=== PATIENT | female | born 1950 | race Hispanic/Latino ===

== ENCOUNTER 2018-06-13 15:13 | Inpatient (IN) | payer OTHER ==
[~2018-06-13] VITALS: Ht 147.3 cm; Wt 55.8 kg
[~2018-06-13 15:13] MED LIST: ALLOPURINOL100 MG PO; AMBIEN CR12.5 MG PO; AMBIEN5 MG PO; AMLODIPINE BESY10 MG PO; CARDURA4 MG; CITALOPRAM HBR20 MG PO; DICYCLOMINE HCL10 MG PO; DICYCLOMINE HCL20 MG PO; DIOVAN80 MG PO; DOXAZOSIN MESYLA2 MG PO; GABAPENTIN300 MG PO; GUAIFENESI100 MG/5 M PO; HYDRALAZINE HCL25 MG PO; LANSOPRAZOLE15 MG PO; LEVEMIR100 UNIT/1 SC; LEVEMIR100 UNIT/1 SQ; LOSARTAN POTAS100 MG PO; LOSARTAN POTASS25 MG PO; METOPROLOL SUCC50 MG PO; NOVOLIN 70100 UNITS/ SQ; NOVOLIN R100 UNIT/1 SQ; PANTOPRAZOLE SO40 MG PO; POTASSIUM CITR10 MEQ PO; PRAVASTATIN SOD10 MG PO; PREDNISONE20 MG PO; PROVENTIL HFA6.7 GM INH; RANITIDINE HCL150 M1 PO; RANITIDINE HCL150 MG PO; REGLAN10 MG PO; SERTRALINE HCL50 MG PO; SODIUM BICARBO650 MG PO; SUCRALFATE1 GM PO; SUPRAX200 MG/5 M PO; SYMBICORT 160-4.5 INH; TOPROL XL100 MG PO; TRICOR145 MG PO; VITAMIN B-650 MG PO; VITAMIN D1000 UNI1 PO; ZOLPIDEM TARTRA10 MG PO
--- OUTSIDE RECORDS SUMMARY | 2018-06-13 15:20 | XMS REPORT | Summary of Care ---
Author Author [facility] [place] Organization [facility] [place] Address Unknown Phone Unavailable Encounter HQ [facility](FIN) [phone] Date(s): 08/24/15 - 08/24/15 [facility] [place] [address] [place] [phone] Discharge Disposition: Home Attending Physician: Thomas Perry MD Vital Signs No data available for this section Problem List No data available for this section Allergies, Adverse Reactions, Alerts No data available for this section Medications No data available for this section Results No data available for this section Immunizations No data available for this section Procedures No data available for this section Social History No data available for this section Assessment and Plan No data available for this section
--- OUTSIDE RECORDS SUMMARY | 2018-06-13 15:20 | XMS REPORT | Clinical Summary ---
Author Author [facility] Address Unknown Phone Unavailable Care Team Providers Care Cro Name Role Phone Cody Cheng PCP Jarrell Gaytan MD Unavailable Unavailable Arnulfo Pina MD 3 Allergies Not on File Medications End Date Status Medication Sig Dispensed Refills Start Date Active metoprolol (TOPROL-XL) Take 100 mg 0 100 MG 24 hr by mouth tabletIndications: ESRD daily. (end stage renal disease) ([facility]) Active pantoprazole (PROTONIX) Take 20 mg by 0 20 MG tabletIndications: mouth daily. ESRD (end stage renal disease) ([facility]) Active folic acid (FOLVITE) 1 MG Take 1 mg by 0 tabletIndications: ESRD mouth daily. (end stage renal disease) ([facility]) Active ondansetron (ZOFRAN) 8 MG Take by mouth 0 tabletIndications: ESRD every 8 (end stage renal disease) (eight) hours ([facility]) as needed for Nausea. Active sodium bicarbonate 650 MG Take 1 tablet 0 tabletIndications: ESRD by mouth 4 (end stage renal disease) (four) times ([facility]) daily. Active sertraline (ZOLOFT) 100 Take 100 mg 0 MG tabletIndications: by mouth ESRD (end stage renal daily. disease) ([facility]) Active ranitidine (ZANTAC) 150 Take 150 mg 0 MG capsuleIndications: by mouth 2 ESRD (end stage renal (two) times disease) ([facility]) daily. Active sevelamer (RENVELA) 800 Take 800 mg 0 mg tabletIndications: by mouth 3 ESRD (end stage renal (three) times disease) ([facility]) daily with meals. Active metoclopramide HCl Take 10 mg by 0 (REGLAN) 10 MG mouth 4 tabletIndications: ESRD (four) times (end stage renal disease) daily as ([facility]) needed for Nausea. Active amLODIPine (NORVASC) 10 Take 10 mg by 0 MG tabletIndications: mouth daily. ESRD (end stage renal disease) ([facility]) Active SUMAtriptan (IMITREX) 100 Take 100 mg 0 MG tabletIndications: by mouth once ESRD (end stage renal as needed for disease) ([facility]) Headaches. Active zolpidem (AMBIEN) 10 mg Take 10 mg by 0 tabletIndications: ESRD mouth every (end stage renal disease) night as ([facility]) needed for Insomnia. Active promethazine (PHENERGAN) Take 25 mg by 0 25 MG tabletIndications: mouth every 6 ESRD (end stage renal (six) hours disease) ([facility]) as needed for Nausea. Active insulin aspart (NOVOLOG) Inject 12 0 100 unit/mL Units InPnIndications: ESRD subcutaneousl (end stage renal disease) y 3 (three) ([facility]) times daily with meals. Active insulin detemir (LEVEMIR) Inject 30 0 100 unit/mL (3 mL) InPn Units injectionIndications: subcutaneousl ESRD (end stage renal y nightly. disease) ([facility]) Active vit B cmplex Take 1 tablet 0 1-DV-O-biot-Zn ox by mouth 1-60-300-12.5 daily. [id number]-[id number]-mg TabIndications: ESRD (end stage renal disease) ([facility]) Active cholecalciferol, vitamin Take 1,000 0 D3, 1,000 unit Units by capsuleIndications: ESRD mouth daily. (end stage renal disease) ([facility]) Active LORazepam (ATIVAN) 0.5 MG Take 0.5 mg 0 tabletIndications: ESRD by mouth (end stage renal disease) every 6 (six) ([facility]) hours as needed for Anxiety. Active Problems Not on file Social History Date Tobacco Use Types Packs/Day Years Used Never Assessed Sex Assigned at Date Recorded Not on file Industry Job Start Date Occupation Not on file Not on file Not on file Travel End Travel History Travel Start No recent travel history available. Last Filed Vital Signs Not on file Plan of Treatment Health Maintenance Due Date Last Done Comments INFLUENZA VACCINE 11/11/2017 Results Not on fileafter 06/12/2017 Insurance Payer Benefit Subscriber ID Type Phone Address Plan / Group [employer] [place] [place] Maps HMO ALL Contracted MEDICAID MEDICAID xxxxxxxxx Medicaid OF [place]
--- OUTSIDE RECORDS SUMMARY | 2018-06-13 15:20 | XMS REPORT | Summary of Care ---
Author Author [facility] Organization [facility] Address Unknown Phone Unavailable Encounter [facility](ZAHRAA) [id number] Date(s): 02/25/18 - 03/05/18 [facility] [id number] [place] [address]- Discharge Disposition: Assisted Facility Attending Physician: Joshua Healy MD Admitting Physician: Joshua Healy MD Vital Signs 1 2 3 Most recent to oldest [Reference Range]: 121.92 cm (02/25/18 9:24 PM) 157.48 cm (02/25/18 12:33 PM) Height 98.1 DegF (03/05/18 10:41 AM) 98.0 DegF (03/05/18 7:44 AM) 98.0 DegF (03/05/18 3:05 AM) Temperature Oral [96.4-99.1 DegF] 107/57 mmHg (03/05/18 10:41 AM) 129/82 mmHg (03/05/18 7:44 AM) 122/78 mmHg (03/05/18 3:05 AM) Blood Pressure [90-140/60-90 mmHg] 16 BRMIN (03/05/18 3:05 AM) 16 BRMIN (03/04/18 11:34 PM) 16 BRMIN (03/04/18 7:33 PM) Respiratory Rate [14-20 BRMIN] 95 bpm (03/05/18 10:41 AM) 102 bpm *HI* (03/05/18 7:44 AM) 97 bpm (03/05/18 3:05 AM) Peripheral Pulse Rate [60-100 bpm] 53.4 kg (02/25/18 9:24 PM) 62.727 kg (02/25/18 12:33 PM) Weight 35.92 m2 (02/25/18 9:24 PM) 25.29 m2 (02/25/18 12:33 PM) Body Mass Index Problem List No data available for this section Allergies, Adverse Reactions, Alerts Substance Reaction Severity Status ibuprofen Active Motrin Active Medications acetaminophen 650 mg, 2 tab, Route: PO, Drug form: TAB, Q6H, Dosing Weight 62.727, kg, PRN For Temp > 100.4 F, Start date: 02/25/18 18:09:00 ANESTHESIOLOGIST/PHYSICIAN, Duration: 30 day, Stop date: 03/27/18 18:08:00 ANESTHESIOLOGIST/PHYSICIAN Notes: Do not exceed 4 gm/day. (Same as: Tylenol) Start Date: 02/25/18 Stop Date: 03/05/18 Status: Discontinued atorvastatin 40 mg oral tablet 40 mg=1 tab, PO, Bedtime, # 90 tab, 1 Refill(s) Start Date: 02/26/18 Status: Ordered bisacodyl 10 mg, 1 supp, Route: MN, Drug form: SUPP, Daily, Dosing Weight 62.727, kg, PRN Constipation, Start date: 02/25/18 18:09:00 ANESTHESIOLOGIST/PHYSICIAN, Duration: 30 day, Stop date: 18:08:00 ANESTHESIOLOGIST/PHYSICIAN Notes: (Same As: Dulcolax, Bisco-Lax) Start Date: 02/25/18 Stop Date: 03/05/18 Status: Discontinued calcium gluconate + Sodium Chloride 0.9% IV 100 mL 2,000 mg, 20 mL, Route: IVPB, ONCE, Dosing Weight 53.4, kg, Start date: 02/27/18 10:59:00 ANESTHESIOLOGIST/PHYSICIAN, Stop date: 02/27/18 10:59:00 ANESTHESIOLOGIST/PHYSICIAN Notes: WASTE: F/P - Sink; E - Municipal Trash Bin Start Date: 02/27/18 Stop Date: 02/27/18 Status: Completed calcium gluconate + Sodium Chloride 0.9% IV 120 mL 3,000 mg, 30 mL, Route: IVPB, ONCE, Dosing Weight 62.727, kg, Start date: 18:58:00 ANESTHESIOLOGIST/PHYSICIAN, Stop date: 02/25/18 18:58:00 ANESTHESIOLOGIST/PHYSICIAN Notes: WASTE: F/P - Sink; E - Municipal Trash Bin Start Date: 02/25/18 Stop Date: 02/25/18 Status: Completed calcium gluconate + Sodium Chloride 0.9% IV 50 mL 1,000 mg, 10 mL, Route: IVPB, ONCE, Dosing Weight 53.4, kg, Start date: 02/28/18 13:54:00 ANESTHESIOLOGIST/PHYSICIAN, Stop date: 02/28/18 13:54:00 ANESTHESIOLOGIST/PHYSICIAN Notes: WASTE: F/P - Sink; E - Municipal Trash Bin Start Date: 02/28/18 Stop Date: 02/28/18 Status: Completed cefepime 1 gm, Route: IVPB, ONCE, Dosing Weight 62.727, kg, Priority: STAT, Start date: 0 02/25/18 15:20:00 ANESTHESIOLOGIST/PHYSICIAN, Stop date: 02/25/18 15:20:00 ANESTHESIOLOGIST/PHYSICIAN, ABX Indication: Urinary Tract Infection Start Date: 02/25/18 Stop Date: 02/25/18 Status: Completed cefepime + Sodium Chloride 0.9% IV 100 mL 1 gm, Route: IVPB, [id number], Dosing Weight 62.727, kg, (CrCl >/=50 ml/min), Start date: 02/26/18 16:00:00 ANESTHESIOLOGIST/PHYSICIAN, Duration: 7 day, Stop date: 03/04/18 16:00:00 ANESTHESIOLOGIST/PHYSICIAN, ABX Indication: Urinary Tract Infection Notes: (Same As: Maxipime) MEDICATION WASTE Product Size: 1000 mgProduc t Wasted: ___ mg Start Date: 02/26/18 Stop Date: 03/04/18 Status: Completed Dextrose 50% Syringe 25 gm, 50 mL, Route: IVP, Drug Form: INJ, Dosing Weight 53.4, kg, PRN, PRN Blood Glucose Results, Start date: 02/27/18 22:09:00 ANESTHESIOLOGIST/PHYSICIAN, Duration: 30 day, Stop date: 03/29/18 22:08:00 ANESTHESIOLOGIST/PHYSICIAN Start Date: 02/27/18 Stop Date: 03/05/18 Status: Discontinued Dextrose 50% Syringe 12.5 gm, 25 mL, Route: IVP, Drug Form: INJ, Dosing Weight 53.4, kg, PRN, PRN Blo od Glucose Results, Start date: 02/27/18 22:09:00 ANESTHESIOLOGIST/PHYSICIAN, Duration: 30 day, Stop da te: 03/29/18 22:08:00 ANESTHESIOLOGIST/PHYSICIAN Start Date: 02/27/18 Stop Date: 03/05/18 Status: Discontinued Dextrose 50% Syringe 12.5 gm, 25 mL, Route: IVP, Drug Form: INJ, Dosing Weight 62.727, kg, PRN, PRN B lood Glucose Results, Start date: 02/25/18 18:09:00 ANESTHESIOLOGIST/PHYSICIAN, Duration: 30 day, Stop date: 03/27/18 18:08:00 ANESTHESIOLOGIST/PHYSICIAN Start Date: 02/25/18 Stop Date: 02/27/18 Status: Deleted Dextrose 50% Syringe 25 gm, 50 mL, Route: IVP, Drug Form: INJ, Dosing Weight 62.727, kg, PRN, PRN Blo od Glucose Results, Start date: 02/25/18 18:09:00 ANESTHESIOLOGIST/PHYSICIAN, Duration: 30 day, Stop da te: 03/27/18 18:08:00 ANESTHESIOLOGIST/PHYSICIAN Start Date: 02/25/18 Stop Date: 02/27/18 Status: Deleted Dilaudid 1 mg, 1 mL, Route: IVP, Drug form: SOLN, ONCE, Dosing Weight 53.4, kg, Priority: STAT, Start date: 02/28/18 10:37:00 ANESTHESIOLOGIST/PHYSICIAN, Stop date: 02/28/18 10:37:00 ANESTHESIOLOGIST/PHYSICIAN Notes: (Same as: Dilaudid) Start Date: 02/28/18 Stop Date: 02/28/18 Status: Completed diphenhydrAMINE 25 mg, 1 tab, Route: PO, Drug form: TAB, Q6H, Dosing Weight 62.727, kg, PRN as n eeded for allergy symptoms, Start date: 02/25/18 18:09:00 ANESTHESIOLOGIST/PHYSICIAN, Duration: 30 day, Stop date: 03/27/18 18:08:00 ANESTHESIOLOGIST/PHYSICIAN Start Date: 02/25/18 Stop Date: 03/05/18 Status: Discontinued enoxaparin 30 mg/0.3 mL subcutaneous solution 30 mg=0.3 mL, SUB-Q, [id number], 0 Refill(s) Start Date: 03/05/18 Status: Ordered famotidine 40 mg, PO, Bedtime, # 60 tab, 0 Refill(s) Start Date: 02/26/18 Stop Date: 03/28/18 Status: Ordered glucagon 1 mg, Route: IM, Drug form: PDR/INJ, PRN, Dosing Weight 53.4, kg, PRN Blood Gluc ose Results, Start date: 02/27/18 22:09:00 ANESTHESIOLOGIST/PHYSICIAN, Duration: 30 day, Stop date: 22:08:00 ANESTHESIOLOGIST/PHYSICIAN Start Date: 02/27/18 Stop Date: 03/05/18 Status: Discontinued glucagon 1 mg, Route: IM, Drug form: PDR/INJ, PRN, Dosing Weight 62.727, kg, PRN Blood Gl ucose Results, Start date: 02/25/18 18:09:00 ANESTHESIOLOGIST/PHYSICIAN, Duration: 30 day, Stop date: 0 03/27/18 18:08:00 ANESTHESIOLOGIST/PHYSICIAN Start Date: 02/25/18 Stop Date: 02/27/18 Status: Deleted hydrALAZINE 10 mg, 0.5 mL, Route: IVP, Drug form: INJ, Q4H, Dosing Weight 62.727, kg, PRN Hy pertension, Priority: Routine, Start date: 02/25/18 18:09:00 ANESTHESIOLOGIST/PHYSICIAN, Duration: 30 d ay, Stop date: 03/27/18 18:08:00 ANESTHESIOLOGIST/PHYSICIAN Notes: (Same as: Apresoline)Push over 5 minutes Start Date: 02/25/18 Stop Date: 03/05/18 Status: Discontinued hydromorphone 0.5 mg, Route: IVP, ONCE, Dosing Weight 62.727, kg, Priority: STAT, Start date: 02/25/18 18:45:00 ANESTHESIOLOGIST/PHYSICIAN, Stop date: 02/25/18 18:45:00 ANESTHESIOLOGIST/PHYSICIAN Start Date: 02/25/18 Stop Date: 02/25/18 Status: Completed insulin lispro 2 unit, 0.02 mL, Route: SUB-Q, Drug form: SOLN, Bedtime, Dosing Weight 53.4, kg, PRN Blood Glucose Results, Start date: 02/27/18 22:09:00 ANESTHESIOLOGIST/PHYSICIAN, Duration: 30 day, Stop date: 03/29/18 22:08:00 ANESTHESIOLOGIST/PHYSICIAN Notes: (Same as: Humalog ) Roll in palms of hands gently; Do not shake `vigorou sly. "Single Patient Use Only " WASTE: F/P - Black; E - Municipal Trash Bin St able for 28 days at room temperature.Expires in days from Da te Start Date: 02/27/18 Stop Date: 03/05/18 Status: Discontinued insulin lispro 3 unit, 0.03 mL, Route: SUB-Q, Drug form: SOLN, Bedtime, Dosing Weight 53.4, kg, PRN Blood Glucose Results, Start date: 02/27/18 22:09:00 ANESTHESIOLOGIST/PHYSICIAN, Duration: 30 day, Stop date: 03/29/18 22:08:00 ANESTHESIOLOGIST/PHYSICIAN Notes: (Same as: Humalog ) Roll in palms of hands gently; Do not shake `vigorou sly. "Single Patient Use Only " WASTE: F/P - Black; E - Municipal Trash Bin St able for 28 days at room temperature.Expires in days from Da te Start Date: 02/27/18 Stop Date: 03/05/18 Status: Discontinued insulin lispro 1 unit, 0.01 mL, Route: SUB-Q, Drug form: SOLN, Bedtime, Dosing Weight 53.4, kg, PRN Blood Glucose Results, Start date: 02/27/18 22:09:00 ANESTHESIOLOGIST/PHYSICIAN, Duration: 30 day, Stop date: 03/29/18 22:08:00 ANESTHESIOLOGIST/PHYSICIAN Notes: (Same as: Humalog ) Roll in palms of hands gently; Do not shake `vigorou sly. "Single Patient Use Only " WASTE: F/P - Black; E - Municipal Trash Bin St able for 28 days at room temperature.Expires in days from Da te Start Date: 02/27/18 Stop Date: 03/05/18 Status: Discontinued insulin lispro 4 unit, 0.04 mL, Route: SUB-Q, Drug form: SOLN, Bedtime, Dosing Weight 53.4, kg, PRN Blood Glucose Results, Start date: 02/27/18 22:09:00 ANESTHESIOLOGIST/PHYSICIAN, Duration: 30 day, Stop date: 03/29/18 22:08:00 ANESTHESIOLOGIST/PHYSICIAN Notes: (Same as: Humalog ) Roll in palms of hands gently; Do not shake `vigorou sly. "Single Patient Use Only " WASTE: F/P - Black; E - Municipal Trash [facility] St able for 28 days at room temperature.Expires in days from Da te Start Date: 02/27/18 Stop Date: 03/05/18 Status: Discontinued insulin lispro 10 unit, 0.1 mL, Route: SUB-Q, Drug form: SOLN, TID-Before Meals, Dosing Weight 53.4, kg, PRN Blood Glucose Results, Start date: 02/27/18 22:09:00 ANESTHESIOLOGIST/PHYSICIAN, Duration : 30 day, Stop date: 03/29/18 22:08:00 ANESTHESIOLOGIST/PHYSICIAN Notes: (Same as: Humalog ) Roll in palms of hands gently; Do not shake `vigorou sly. "Single Patient Use Only " WASTE: F/P - Black; E - FRESS[facility] Bin St able for 28 days at room temperature.Expires in days from Da te Start Date: 02/27/18 Stop Date: 03/05/18 Status: Discontinued insulin lispro 8 unit, 0.08 mL, Route: SUB-Q, Drug form: SOLN, TID-Before Meals, Dosing Weight 53.4, kg, PRN Blood Glucose Results, Start date: 02/27/18 22:09:00 ANESTHESIOLOGIST/PHYSICIAN, Duration : 30 day, Stop date: 03/29/18 22:08:00 ANESTHESIOLOGIST/PHYSICIAN Notes: (Same as: Humalog ) Roll in palms of hands gently; Do not shake `vigorou sly. "Single Patient Use Only " WASTE: F/P - Black; E - FRESSsh Bin St able for 28 days at room temperature.Expires in days from Da te Start Date: 02/27/18 Stop Date: 03/05/18 Status: Discontinued insulin lispro 6 unit, 0.06 mL, Route: SUB-Q, Drug form: SOLN, TID-Before Meals, Dosing Weight 53.4, kg, PRN Blood Glucose Results, Start date: 02/27/18 22:09:00 ANESTHESIOLOGIST/PHYSICIAN, Duration : 30 day, Stop date: 03/29/18 22:08:00 ANESTHESIOLOGIST/PHYSICIAN Notes: (Same as: Humalog ) Roll in palms of hands gently; Do not shake `vigorou sly. "Single Patient Use Only " WASTE: F/P - Black; E - Municipal Trash [facility] St able for 28 days at room temperature.Expires in days from Da te Start Date: 02/27/18 Stop Date: 03/05/18 Status: Discontinued insulin lispro 2 unit, 0.02 mL, Route: SUB-Q, Drug form: SOLN, TID-Before Meals, Dosing Weight 53.4, kg, PRN Blood Glucose Results, Start date: 02/27/18 22:09:00 ANESTHESIOLOGIST/PHYSICIAN, Duration : 30 day, Stop date: 03/29/18 22:08:00 ANESTHESIOLOGIST/PHYSICIAN Notes: (Same as: Humalog ) Roll in palms of hands gently; Do not shake `vigorou sly. "Single Patient Use Only " WASTE: F/P - Black; E - Municipal Trash [facility] St able for 28 days at room temperature.Expires in days from Da te Start Date: 02/27/18 Stop Date: 03/05/18 Status: Discontinued insulin lispro 4 unit, 0.04 mL, Route: SUB-Q, Drug form: SOLN, TID-Before Meals, Dosing Weight 53.4, kg, PRN Blood Glucose Results, Start date: 02/27/18 22:09:00 ANESTHESIOLOGIST/PHYSICIAN, Duration : 30 day, Stop date: 03/29/18 22:08:00 ANESTHESIOLOGIST/PHYSICIAN Notes: (Same as: Humalog ) Roll in palms of hands gently; Do not shake `vigorou sly. "Single Patient Use Only " WASTE: F/P - Black; E - Municipal Trash Bin St able for 28 days at room temperature.Expires in days from Da te Start Date: 02/27/18 Stop Date: 03/05/18 Status: Discontinued Timothy packet 1 pkt, Route: PO, Drug Form: PWDR, Dosing Weight 53.4, kg, BID-Before Meals, Sta rt date: 02/27/18 7:30:00 ANESTHESIOLOGIST/PHYSICIAN, Duration: 28 day, Stop date: 03/26/18 16:30:00 CS T Notes: (Same as: Timothy [place]) Start Date: 02/27/18 Stop Date: 03/05/18 Status: Discontinued loperamide 2 mg oral capsule 2 mg=1 cap, PO, Q4H, PRN loose stools, # 30 cap, 0 Refill(s), other Start Date: 03/05/18 Status: Ordered Lovenox 30 mg, 0.3 mL, Route: SUB-Q, Drug form: INJ, [id number], Dosing Weight 62.727, kg, Start date: 02/25/18 20:00:00 ANESTHESIOLOGIST/PHYSICIAN, Duration: 30 day, Stop date: 03/26/18 20:00: 00 ANESTHESIOLOGIST/PHYSICIAN Notes: (Same as: Lovenox) Start Date: 02/25/18 Stop Date: 03/05/18 Status: Discontinued magnesium citrate 1.745 g/30 mL oral liquid 300 ml, Route: PO, Drug Form: LIQ, Dosing Weight 62.727, kg, ONCE, PRN Constipat ion, Start date: 02/25/18 18:09:00 ANESTHESIOLOGIST/PHYSICIAN Notes: (Same as: Citrate of Magnesia)Concentration: 1.745 gm / 30 mL Start Date: 02/25/18 Stop Date: 03/05/18 Status: Discontinued magnesium sulfate 2 gm, 50 mL, Route: IV, Drug form: INJ, ONCE, Dosing Weight 53.4, kg, Start date : 02/28/18 10:56:00 ANESTHESIOLOGIST/PHYSICIAN, Stop date: 02/28/18 10:56:00 ANESTHESIOLOGIST/PHYSICIAN Notes: WASTE: F/P - Sink; E - Municipal Trash Bin Start Date: 02/28/18 Stop Date: 02/28/18 Status: Completed magnesium sulfate 2 gm in Water 50 ml 2 gm, 50 mL, Route: IVPB, Drug form: INJ, ONCE, Dosing Weight 53.4, kg, Start da te: 02/28/18 13:54:00 ANESTHESIOLOGIST/PHYSICIAN, Stop date: 02/28/18 13:54:00 ANESTHESIOLOGIST/PHYSICIAN Notes: WASTE: F/P - Sink; E - Municipal Trash Bin Start Date: 02/28/18 Stop Date: 02/28/18 Status: Completed magnesium sulfate 2gm / NS 50ml (premixed) 2 gm, 50 mL, Route: IVPB, Drug form: INJ, ONCE, Dosing Weight 53.4, kg, Start da te: 02/28/18 17:34:00 ANESTHESIOLOGIST/PHYSICIAN, Stop date: 02/28/18 17:34:00 ANESTHESIOLOGIST/PHYSICIAN Notes: WASTE: F/P - Sink; E - Municipal Trash Bin Start Date: 02/28/18 Stop Date: 02/28/18 Status: Completed melatonin 3 mg, 1 tab, Route: PO, Drug form: TAB, Bedtime, Dosing Weight 62.727, kg, PRN I nsomnia, Start date: 02/25/18 18:09:00 ANESTHESIOLOGIST/PHYSICIAN, Duration: 30 day, Stop date: 9 18:08:00 ANESTHESIOLOGIST/PHYSICIAN Notes: (Same as: Melatonin) Start Date: 02/25/18 Stop Date: 03/05/18 Status: Discontinued metoprolol extended release 25 mg, 1 tab, Route: PO, Drug form: ERTAB, Daily, Priority: NOW, Start date: 23:10:00 ANESTHESIOLOGIST/PHYSICIAN, Duration: 30 day, Stop date: 04/01/18 9:00:00 ANESTHESIOLOGIST/PHYSICIAN Notes: (Same as: Toprol XL) Do Not Crush Start Date: 03/02/18 Stop Date: 03/05/18 Status: Discontinued morphine Sulfate 2 mg, 0.5 mL, Route: IVP, Drug form: SOLN, Q4H, Dosing Weight 62.727, kg, PRN Pa in Score 7-10, Start date: 02/25/18 18:09:00 ANESTHESIOLOGIST/PHYSICIAN, Duration: 30 day, Stop date: 0 03/27/18 18:08:00 ANESTHESIOLOGIST/PHYSICIAN Notes: (Same as:MORPhine Sulfate) Start Date: 02/25/18 Stop Date: 03/05/18 Status: Discontinued morphine Sulfate 2 mg, 1 mL, Route: IVP, Drug form: SOLN, ONCE, Dosing Weight 62.727, kg, Priorit y: STAT, Start date: 02/25/18 13:24:00 ANESTHESIOLOGIST/PHYSICIAN, Stop date: 02/25/18 13:24:00 ANESTHESIOLOGIST/PHYSICIAN Start Date: 02/25/18 Stop Date: 02/25/18 Status: Completed nicotine 21 mg, 1 patch, Route: TOP, Drug form: ERFILM, Daily, Dosing Weight 62.727, kg, PRN as needed for smoking cessation, Start date: 02/25/18 18:09:00 ANESTHESIOLOGIST/PHYSICIAN, Duration : 30 day, Stop date: 03/27/18 18:08:00 ANESTHESIOLOGIST/PHYSICIAN Notes: (Same as: Habitrol)"Remove old patch before application of new patch"WAST E: F/P - P Waste Black; E - P Waste Black Start Date: 02/25/18 Stop Date: 03/05/18 Status: Discontinued Acton 5/325 oral tablet 1 tab, Route: PO, Drug Form: TAB, Dosing Weight 62.727, kg, Q6H, PRN Pain Score 1-3, Start date: 02/25/18 18:09:00 ANESTHESIOLOGIST/PHYSICIAN, Duration: 30 day, Stop date: 03/27/18 18 :08:00 ANESTHESIOLOGIST/PHYSICIAN Notes: (Same as: Acton 325/5) Do not exceed 4gm/day of acetaminophen. Start Date: 02/25/18 Stop Date: 03/05/18 Status: Discontinued NS 1,000 mL 1,000 mL, Rate: 125 ml/hr, Infuse over: 8 hr, Route: IV, Dosing Weight 53.4 kg, Total Volume: 1,000, Start date: 02/25/18 16:38:00 ANESTHESIOLOGIST/PHYSICIAN, Duration: 30 day, Stop d ate: 03/27/18 16:37:00 ANESTHESIOLOGIST/PHYSICIAN, 1.38, m2 Start Date: 02/25/18 Stop Date: 03/05/18 Status: Discontinued ondansetron 4 mg, 2 mL, Route: IVP, Drug form: INJ, Q6H, Dosing Weight 62.727, kg, PRN Nause a & Vomiting, Start date: 02/25/18 18:09:00 ANESTHESIOLOGIST/PHYSICIAN, Duration: 30 day, Stop date: 03/27/18 18:08:00 ANESTHESIOLOGIST/PHYSICIAN Notes: (Same as: Tomas) MEDICATION WASTE Product Size: 4 mgProduct Was paul: ___ mg Start Date: 02/25/18 Stop Date: 03/05/18 Status: Discontinued ondansetron 4 mg, 2 mL, Route: IVP, Drug form: INJ, ONCE, Dosing Weight 62.727, kg, Priority : STAT, Start date: 02/25/18 13:24:00 ANESTHESIOLOGIST/PHYSICIAN, Stop date: 02/25/18 13:24:00 ANESTHESIOLOGIST/PHYSICIAN Notes: (Same as: Zofran) MEDICATION WASTE Product Size: 4 mgProduct Was paul: ___ mg Start Date: 02/25/18 Stop Date: 02/25/18 Status: Completed Phenergan 25 mg oral tablet 25 mg=1 tab, PO, Q6H, PRN Nausea, # 30 tab, 0 Refill(s), other Start Date: 03/05/18 Status: Ordered polyethylene glycol 3350 17 gm, 1 pkt, Route: PO, Drug form: PWDR, Daily, Dosing Weight 62.727, kg, PRN C onstipation, Start date: 02/25/18 18:09:00 ANESTHESIOLOGIST/PHYSICIAN, Duration: 30 day, Stop date: 18:08:00 ANESTHESIOLOGIST/PHYSICIAN Notes: Dissolve in 8 oz of water or juice.(Same as: Miralax) Start Date: 02/25/18 Stop Date: 03/05/18 Status: Discontinued potassium chloride 20 mEq, 1 tab, Route: PO, Drug form: ERTAB, ONCE, Dosing Weight 53.4, kg, Start date: 02/27/18 10:59:00 ANESTHESIOLOGIST/PHYSICIAN, Stop date: 02/27/18 10:59:00 ANESTHESIOLOGIST/PHYSICIAN Start Date: 02/27/18 Stop Date: 02/27/18 Status: Completed potassium chloride 20 mEq oral tablet, extended release 40 mEq, 2 tab, Route: PO, Drug form: ERTAB, ONCE, Dosing Weight 53.4, kg, Start date: 03/05/18 17:41:00 ANESTHESIOLOGIST/PHYSICIAN, Stop date: 03/05/18 17:41:00 ANESTHESIOLOGIST/PHYSICIAN Notes: (Same as: K-Dur 20)"Do Not Crush" Give with food and full glass of water For patients unable to swallow tablet, dissolve in one half glass of water. Allo w about 2 minutes for the tablets to disintegrate. Stir before giving to prepare slurry and administer.Please exclude Patients with feeding tube less than 14 [place] (Dobhoff, J-tube etc) and pediatric and patients. Start Date: 03/05/18 Stop Date: 03/05/18 Status: Completed pramipexole 0.125 mg oral tablet 0.125 mg=1 tab, PO, Daily, 0 Refill(s) Start Date: 02/26/18 Status: Ordered promethazine 25 mg, PO, Q6H, 0 Refill(s) Start Date: 02/26/18 Stop Date: 03/05/18 Status: Discontinued promethazine + Sodium Chloride 0.9% IV 50 mL 25 mg, 1 mL, Route: IVPB, Q6H, Dosing Weight 53.4, kg, PRN Nausea & Vomiting, Start date: 03/02/18 7:41:00 ANESTHESIOLOGIST/PHYSICIAN, Duration: 30 day, Stop date: 04/01/18 7:40:00 ANESTHESIOLOGIST/PHYSICIAN Notes: Do not give IV push. (Same as: Phenergan) Start Date: 03/02/18 Stop Date: 03/05/18 Status: Discontinued Saline Flush 0.9% 10 mL, Route: IVP, Drug Form: INJ, Dosing Weight 62.727, kg, PRN, PRN Line Flush , Start date: 02/25/18 13:24:00 ANESTHESIOLOGIST/PHYSICIAN, Duration: 30 day, Stop date: 03/27/18 13:23 :00 ANESTHESIOLOGIST/PHYSICIAN Notes: Same as: BD Posiflush Sterile Start Date: 02/25/18 Stop Date: 03/03/18 Status: Discontinued SandoSTATIN 100 mcg/mL injectable solution 100 microgram, SUB-Q, BID, X 30 day, # 60 vial, 0 Refill(s), other Start Date: 03/05/18 Stop Date: 04/04/18 Status: Ordered SEROquel 25 mg, 1 tab, Route: PO, Drug form: TAB, BID, Dosing Weight 62.727, kg, PRN Agit ation, Start date: 02/25/18 18:09:00 ANESTHESIOLOGIST/PHYSICIAN, Duration: 30 day, Stop date: 03/27/18 18:08:00 ANESTHESIOLOGIST/PHYSICIAN Notes: (Same as: SEROquel) Start Date: 02/25/18 Stop Date: 03/05/18 Status: Discontinued sodium bicarbonate 10 grain, PO, BID, 0 Refill(s) Start Date: 02/26/18 Status: Ordered Sodium Chloride 0.9% (Bolus) IV 1,000 mL, 1000 ml/hr, Infuse Over: 1 hr, Route: IV, 1,000, Drug form: INJ, ONCE, Priority: STAT, Dosing Weight 62.727 kg, Start date: 02/25/18 15:24:00 ANESTHESIOLOGIST/PHYSICIAN, Stop date: 02/25/18 15:24:00 ANESTHESIOLOGIST/PHYSICIAN Start Date: 02/25/18 Stop Date: 02/25/18 Status: Completed Sodium Chloride 0.9% (Bolus) IV 1,000 mL, 1000 ml/hr, Infuse Over: 1 hr, Route: IV, 1,000, Drug form: INJ, ONCE, Priority: STAT, Dosing Weight 62.727 kg, Start date: 02/25/18 13:24:00 ANESTHESIOLOGIST/PHYSICIAN, Stop date: 02/25/18 13:24:00 ANESTHESIOLOGIST/PHYSICIAN Start Date: 02/25/18 Stop Date: 02/25/18 Status: Completed sucralfate 1 g oral tablet 1 gm=1 tab, PO, QID-Before Meals, 0 Refill(s) Start Date: 02/26/18 Status: Ordered trazodone 50 mg, 1 tab, Route: PO, Drug form: TAB, Bedtime, Dosing Weight 62.727, kg, PRN Insomnia, Start date: 02/25/18 18:09:00 ANESTHESIOLOGIST/PHYSICIAN, Duration: 30 day, Stop date: 18:08:00 ANESTHESIOLOGIST/PHYSICIAN Notes: (Same As: Brian) Start Date: 02/25/18 Stop Date: 03/05/18 Status: Discontinued Tums 1,000 mg, 2 tab, Route: CHEW, Drug form: CHEWTAB, TID-Meals, Dosing Weight 53.4, kg, Start date: 02/27/18 17:00:00 ANESTHESIOLOGIST/PHYSICIAN, Duration: 30 day, Stop date: 03/29/18 12 :00:00 ANESTHESIOLOGIST/PHYSICIAN Notes: (Same As: Tums)Calcium Carbonate 500 qu=210 mg elemental calcium Dose=_ mg calcium carbonate ( mg elemental calcium) Start Date: 02/27/18 Stop Date: 02/28/18 Status: Discontinued Tums 1,000 mg, 2 tab, Route: CHEW, Drug form: CHEWTAB, TID-Before Meals, Dosing Weigh t 53.4, kg, Start date: 02/28/18 16:30:00 ANESTHESIOLOGIST/PHYSICIAN, Duration: 30 day, Stop date: 03/14 08/29 11:30:00 ANESTHESIOLOGIST/PHYSICIAN Notes: (Same As: Tums)Calcium Carbonate 500 qb=594 mg elemental calcium Dose=_ mg calcium carbonate ( mg elemental calcium) Start Date: 02/28/18 Stop Date: 03/05/18 Status: Discontinued Tylenol with Codeine #3 oral tablet 1 tab, PO, Q6H, PRN Pain, # 25 tab, 0 Refill(s) Start Date: 03/05/18 Status: Ordered zinc oxide topical 20% ointment Route: TOP, BID, Drug form: OINT, Start date: 02/27/18 9:00:00 ANESTHESIOLOGIST/PHYSICIAN, Duration: 30 day, Stop date: 03/28/18 17:00:00 ANESTHESIOLOGIST/PHYSICIAN Notes: Same as: Desitin Start Date: 02/27/18 Stop Date: 03/05/18 Status: Discontinued Zofran ODT 4 mg oral tablet, disintegrating 4 mg=1 tab, PO, TID, Dissolve tab under tongue, # 20 tab, 0 Refill(s) Start Date: 03/05/18 Status: Ordered Results ELECTROLYTES 1 2 3 Most recent to oldest [Reference Range]: 134 mEq/L *LOW* (03/05/18 9:18 AM) 135 mEq/L (03/04/18 5:01 AM) 134 mEq/L *LOW* (03/03/18 2:30 PM) Sodium Lvl [135-145 mEq/L] 3.2 mEq/L *LOW* (03/05/18 9:18 AM) 3.7 mEq/L (03/04/18 5:01 AM) 3.5 mEq/L (03/03/18 2:30 PM) Potassium Lvl [3.5-5.1 mEq/L] 93 mEq/L *LOW* (03/05/18 9:18 AM) 93 mEq/L *LOW* (03/04/18 5:01 AM) 88 mEq/L *LOW* (03/03/18 2:30 PM) Chloride Lvl [95-109 mEq/L] 33 mEq/L *HI* (03/05/18 9:18 AM) 30 mEq/L (03/04/18 5:01 AM) 31 mEq/L (03/03/18 2:30 PM) CO2 [24-32 mEq/L] 11.2 mEq/L (03/05/18 9:18 AM) 15.7 mEq/L (03/04/18 5:01 AM) 18.5 mEq/L (03/03/18 2:30 PM) AGAP [10.0-20.0 mEq/L] CHEM PANEL 1 2 3 Most recent to oldest [Reference Range]: 2.18 mg/dL *HI* (03/05/18 9:18 AM) 2.41 mg/dL *HI* (03/04/18 5:01 AM) 3.34 mg/dL *HI* (03/03/18 2:30 PM) Creatinine Lvl [0.50-1.40 mg/dL] 23 mL/min/1.73m2 1 *NA* (03/05/18 9:18 AM) 20 mL/min/1.73m2 2 *NA* (03/04/18 5:01 AM) 14 mL/min/1.73m2 3 *NA* (03/03/18 2:30 PM) eGFR 41 mg/dL *HI* (03/05/18 9:18 AM) 50 mg/dL *HI* (03/04/18 5:01 AM) 49 mg/dL *HI* (03/03/18 2:30 PM) BUN [7-22 mg/dL] 20 (02/25/18 5:46 PM) 17 (02/25/18 1:44 PM) B/C Ratio [6-25] 117 mg/dL *HI* (03/05/18 9:18 AM) 150 mg/dL *HI* (03/04/18 5:01 AM) 211 mg/dL *HI* (03/03/18 2:30 PM) Glucose Lvl [70-99 mg/dL] 6.6 g/dL (02/25/18 5:46 PM) 8.4 g/dL (02/25/18 1:44 PM) Total Protein [6.4-8.4 g/dL] 2.1 g/dL *LOW* (02/25/18 5:46 PM) 2.8 g/dL *LOW* (02/25/18 1:44 PM) Albumin Lvl [3.5-5.0 g/dL] 4.5 g/dL *HI* (02/25/18 5:46 PM) 5.6 g/dL *HI* (02/25/18 1:44 PM) Globulin [2.7-4.2 g/dL] 0.5 *LOW* (02/25/18 5:46 PM) 0.5 *LOW* (02/25/18 1:44 PM) A/G Ratio [0.7-1.6] 7.8 mg/dL *LOW* (03/05/18 9:18 AM) 7.5 mg/dL *LOW* (03/04/18 5:01 AM) 8.3 mg/dL *LOW* (03/03/18 2:30 PM) Calcium Lvl [8.5-10.5 mg/dL] 3.5 mg/dL (03/01/18 6:18 AM) 4.2 mg/dL (02/28/18 6:00 AM) 2.1 mg/dL *LOW* (02/28/18 4:00 AM) Phosphorus [2.5-4.5 mg/dL] 2.8 mg/dL *HI* (03/01/18 6:18 AM) 0.5 mg/dL 4 *CRIT* (02/28/18 6:00 AM) <0.3 mg/dL 5 *CRIT* (02/28/18 4:00 AM) Magnesium Lvl [1.8-2.4 mg/dL] 11 unit/L (02/25/18 5:46 PM) 13 unit/L (02/25/18 1:44 PM) ALT [0-65 unit/L] 22 unit/L (02/25/18 5:46 PM) 21 unit/L (02/25/18 1:44 PM) AST [0-37 unit/L] 70 unit/L (02/25/18 5:46 PM) 87 unit/L (02/25/18 1:44 PM) Alk Phos [39-136 unit/L] 0.3 mg/dL (02/25/18 5:46 PM) 0.4 mg/dL (02/25/18 1:44 PM) Bili Total [0.2-1.3 mg/dL] 24 unit/L *LOW* (02/25/18 2:15 PM) Amylase Lvl [25-115 unit/L] 78 unit/L (02/25/18 2:15 PM) Lipase Lvl [73-393 unit/L] 1.1 mMol/L (02/25/18 5:46 PM) Lactic Acid Lvl [0.5-2.2 mMol/L] 0.30 ng/mL *HI* (02/25/18 5:46 PM) Procalcitonin Lvl [0.00-0.10 ng/mL] 24.8 ng/mL *LOW* (02/27/18 1:31 PM) Vitamin D, 25-OH, Total [30.0-100.0 ng/mL] 1Result Comment: The eGFR is calculated using the CKD-EPI formula. In most young, healthy individuals the eGFR will be >90 mL/min/1.73m2. The eGFR declines with age. An eGFR of 60-89 may be normal in some populations, particularly the elderly, for whom the CKD-EPI formula has not been extensively validated. Use of the eGFR is not recommended in the following populations: Individuals with unstable creatinine concentrations, including patients and those with serious co-morbid conditions. Patients with extremes in muscle mass or diet. The data above are obtained from the National Kidney Disease Education Program ( NKDEP) which additionally recommends that when the eGFR is used in patients with extremes of body mass index for purposes of drug dosing, the eGFR should be mul tiplied by the estimated BMI. 2Result Comment: The eGFR is calculated using the CKD-EPI formula. In most young, healthy individuals the eGFR will be >90 mL/min/1.73m2. The eGFR declines with age. An eGFR of 60-89 may be normal in some populations, particularly the elderly, for whom the CKD-EPI formula has not been extensively validated. Use of the eGFR is not recommended in the following populations: Individuals with unstable creatinine concentrations, including patients and those with serious co-morbid conditions. Patients with extremes in muscle mass or diet. The data above are obtained from the National Kidney Disease Education Program ( NKDEP) which additionally recommends that when the eGFR is used in patients with extremes of body mass index for purposes of drug dosing, the eGFR should be mul tiplied by the estimated BMI. 3Result Comment: The eGFR is calculated using the CKD-EPI formula. In most young, healthy individuals the eGFR will be >90 mL/min/1.73m2. The eGFR declines with age. An eGFR of 60-89 may be normal in some populations, particularly the elderly, for whom the CKD-EPI formula has not been extensively validated. Use of the eGFR is not recommended in the following populations: Individuals with unstable creatinine concentrations, including patients and those with serious co-morbid conditions. Patients with extremes in muscle mass or diet. The data above are obtained from the National Kidney Disease Education Program ( NKDEP) which additionally recommends that when the eGFR is used in patients with extremes of body mass index for purposes of drug dosing, the eGFR should be mul tiplied by the estimated BMI. 4Result Comment: Critical Result(s) called to Pushpa Hester at 02/28/2018 10:16 by DMF. Read back OK. 5Result Comment: Critical Result(s) called to RN. Milly Thao at 02/28/2018 05:40 by kris. Read back OK. LIPIDS 1 2 3 Most recent to oldest [Reference Range]: 3.12 *LOW* (02/26/18 5:54 AM) CHD Risk [3.90-5.80] 106 mg/dL (02/26/18 5:54 AM) Chol [<=199 mg/dL] 220 mg/dL *HI* (02/26/18 5:54 AM) Trig [<=149 mg/dL] 34 mg/dL *LOW* (02/26/18 5:54 AM) HDL [>=61 mg/dL] 28 mg/dL (02/26/18 5:54 AM) LDL (Calculated) [<=99 mg/dL] 44 *NA* (02/26/18 5:54 AM) VLDL SPECIAL CHEMISTRY 1 2 3 Most recent to oldest [Reference Range]: 6.6 % *HI* (02/26/18 5:54 AM) Hgb A1C [<=5.6 %] PARATHYROID PROFILE 1 2 3 Most recent to oldest [Reference Range]: 1.15 mMol/L (03/01/18 6:18 AM) Ca Ion WB [1.05-1.25 mMol/L] 1.15 mMol/L (03/01/18 6:18 AM) Ca Norm WB [1.05-1.25 mMol/L] 50.3 pg/mL (02/27/18 1:31 PM) PTH Intact [18.4-80.1 pg/mL] URINE CHEM 1 2 3 Most recent to oldest [Reference Range]: 213.00 mg/dL *NA* (02/25/18 11:35 PM) U Creatinine 6 mEq/L *NA* (02/25/18 11:35 PM) U Sodium URINE AND STOOL 1 2 3 Most recent to oldest [Reference Range]: Cloudy *ABN* (02/25/18 11:35 PM) Marked *ABN* (02/25/18 3:19 PM) UA Turbidity [Clear] Yellow *NA* (02/25/18 11:35 PM) See Note 1 (02/25/18 3:19 PM) UA Color [Yellow] 5.5 (02/25/18 11:35 PM) 5.5 (02/25/18 3:19 PM) UA pH [5.0-8.0] >=1.030 *ABN* (02/25/18 11:35 PM) >=1.030 *ABN* (02/25/18 3:19 PM) UA Spec Grav [<=1.030] 100 mg/dL *ABN* (02/25/18 11:35 PM) UA Glucose [Negative mg/dL] Negative (02/25/18 3:19 PM) UA Glucose [Negative] Large *ABN* (02/25/18 11:35 PM) Moderate *ABN* (02/25/18 3:19 PM) UA Blood [Negative] Trace *ABN* (02/25/18 11:35 PM) Trace *ABN* (02/25/18 3:19 PM) UA Ketones [Negative] 100 mg/dL *ABN* (02/25/18 11:35 PM) 100 mg/dL *ABN* (02/25/18 3:19 PM) UA Protein [Negative mg/dL] 0.2 EU/dL (02/25/18 11:35 PM) 0.2 EU/dL (02/25/18 3:19 PM) UA Urobilinogen [0.1-1.0 EU/dL] Moderate *ABN* (02/25/18 11:35 PM) Small *ABN* (02/25/18 3:19 PM) UA Bili [Negative] Small *ABN* (02/25/18 11:35 PM) Moderate *ABN* (02/25/18 3:19 PM) UA Leuk Est [Negative] Negative (02/25/18 11:35 PM) Negative (02/25/18 3:19 PM) UA Nitrite [Negative] >182 /HPF *HI* (02/25/18 11:35 PM) >182 /HPF *ABN* (02/25/18 3:19 PM) UA WBC [0-5 /HPF] 132 /HPF *HI* (02/25/18 11:35 PM) 3-5 /HPF *ABN* (02/25/18 3:19 PM) UA RBC [0-2 /HPF] Occasional /HPF *NA* (02/25/18 11:35 PM) Moderate /HPF *ABN* (02/25/18 3:19 PM) UA Bacteria [None Seen /HPF] Many /LPF *ABN* (02/25/18 11:35 PM) Occasional /LPF (02/25/18 3:19 PM) UA Sq Epi [Few /LPF] Few /LPF *NA* (02/25/18 11:35 PM) Few /LPF (02/25/18 3:19 PM) UA Mucus [None Seen /LPF] 1Result Comment: Urine color is white(mucus)on 02/25/2018 16:39 by Pj. HEMATOLOGY 1 2 3 Most recent to oldest [Reference Range]: 8.5 K/CMM (03/05/18 9:18 AM) 8.8 K/CMM (02/27/18 4:52 AM) 9.9 K/CMM (02/26/18 5:54 AM) WBC [3.7-10.4 K/CMM] 3.23 M/CMM *LOW* (03/05/18 9:18 AM) 3.24 M/CMM *LOW* (02/27/18 4:52 AM) 2.91 M/CMM *LOW* (02/26/18 5:54 AM) RBC [4.20-5.40 M/CMM] 9.6 g/dL *LOW* (03/05/18 9:18 AM) 9.6 g/dL *LOW* (02/27/18 4:52 AM) 8.7 g/dL *LOW* (02/26/18 5:54 AM) Hgb [12.0-16.0 g/dL] 29.1 % *LOW* (03/05/18 9:18 AM) 29.3 % *LOW* (02/27/18 4:52 AM) 25.7 % *LOW* (02/26/18 5:54 AM) Hct [36.0-48.0 %] 90.3 fL (03/05/18 9:18 AM) 90.4 fL (02/27/18 4:52 AM) 88.6 fL (02/26/18 5:54 AM) MCV [80.0-98.0 fL] 29.8 pg (03/05/18 9:18 AM) 29.5 pg (02/27/18 4:52 AM) 29.8 pg (02/26/18 5:54 AM) MCH [27.0-31.0 pg] 33.0 g/dL (03/05/18 9:18 AM) 32.6 g/dL (02/27/18 4:52 AM) 33.7 g/dL (02/26/18 5:54 AM) MCHC [32.0-36.0 g/dL] 16.3 % *HI* (03/05/18 9:18 AM) 16.5 % *HI* (02/27/18 4:52 AM) 16.1 % *HI* (02/26/18 5:54 AM) RDW [11.5-14.5 %] 6.8 fL *LOW* (03/05/18 9:18 AM) 6.9 fL *LOW* (02/27/18 4:52 AM) 6.5 fL *LOW* (02/26/18 5:54 AM) MPV [7.4-10.4 fL] 295 K/CMM (03/05/18 9:18 AM) 382 K/CMM (02/27/18 4:52 AM) 432 K/CMM (02/26/18 5:54 AM) Platelet [133-450 K/CMM] 58.9 % (02/27/18 4:52 AM) 80.6 % *HI* (02/25/18 6:29 PM) 82.5 % *HI* (02/25/18 2:15 PM) Segs [45.0-75.0 %] 26.5 % (02/27/18 4:52 AM) 12.3 % *LOW* (02/25/18 6:29 PM) 9.4 % *LOW* (02/25/18 2:15 PM) Lymphocytes [20.0-40.0 %] 11.6 % (02/27/18 4:52 AM) 6.4 % (02/25/18 6:29 PM) 7.0 % (02/25/18 2:15 PM) Monocytes [2.0-12.0 %] 2.0 % (02/27/18 4:52 AM) 0.1 % (02/25/18 6:29 PM) 0.4 % (02/25/18 2:15 PM) Eosinophils [0.0-4.0 %] 1.0 % (02/27/18 4:52 AM) 0.6 % (02/25/18 6:29 PM) 0.7 % (02/25/18 2:15 PM) Basophils [0.0-1.0 %] 5.2 K/CMM (02/27/18 4:52 AM) 10.8 K/CMM *HI* (02/25/18 6:29 PM) 13.7 K/CMM *HI* (02/25/18 2:15 PM) Neutrophils # [1.5-8.1 K/CMM] 2.3 K/CMM (02/27/18 4:52 AM) 1.7 K/CMM (02/25/18 6:29 PM) 1.6 K/CMM (02/25/18 2:15 PM) Lymphocytes # [1.0-5.5 K/CMM] 1.0 K/CMM *HI* (02/27/18 4:52 AM) 0.9 K/CMM *HI* (02/25/18 6:29 PM) 1.2 K/CMM *HI* (02/25/18 2:15 PM) Monocytes # [0.0-0.8 K/CMM] 0.2 K/CMM (02/27/18 4:52 AM) 0.1 K/CMM (02/25/18 2:15 PM) Eosinophils # [0.0-0.5 K/CMM] 0.1 K/CMM (02/27/18 4:52 AM) 0.1 K/CMM (02/25/18 6:29 PM) 0.1 K/CMM (02/25/18 2:15 PM) Basophils # [0.0-0.2 K/CMM] Normal (02/25/18 6:29 PM) RBC Morph Normal (02/25/18 6:29 PM) Plt Morph 15.0 seconds *HI* (02/25/18 2:15 PM) PT [12.0-14.7 seconds] 1.20 *HI* (02/25/18 2:15 PM) INR [0.85-1.17] 39.4 seconds *HI* (02/25/18 2:15 PM) PTT [22.9-35.8 seconds] Microbiology Reports TEST: Culture: Urine STATUS: Auth (Verified) BODY SITE: SOURCE: Urine, Clean Catch COLLECTED DATE/TIME: 02/25/18 11:35 PM FINAL REPORT Specimen contains 3 or more potential pathogens; recommend correlation with urinalysis; if catheterized specimen recommend removal and recollection. If clinical situation warrants please call the laboratory for further testing. [place] Microbiology [phone]. Immunizations No data available for this section Procedures Procedure Date Related Diagnosis Body Site Status Colectomy Completed Hemorrhoidectomy Completed Knee joint operation Completed Ostomy care management Completed Wrist repair Completed Social History Social History Type Response Substance Abuse Use: None. Alcohol Never Smoking Status Never smoker; Exposure to Tobacco Smoke None; Cigarette Smoking Last 365 Days No; Reg Smoking Cessation Counseling No entered on: 02/25/18 Assessment and Plan Extracted from: Title: Clinical Document Author: Celeste Samuels MD Date: 03/05/18 Progress Daily [facility] Completed: Feb, 17:44 by Celeste Samuels MD RM: 301 - 1P, SE [id number] MIGUEL [id number] (: 1950) F Attending: Joshua Healy MDPhone: Service: Internal Medicine Reason for Admission: ABDOMINAL PAIN, ACUTE, ACUTE LOWER UTI, ACUTE RENAL EMILEE Working DRG: Code status: None Specified=FULL CODECurrent diet: Isolation: No Isolation/Standard Precautions Allergies: ibuprofen, Motrin SUBJECTIVE Patient is still having on and off leakage from the fistula financial center manager. Apparently she is accepted to a skilled unit where they can do a suction OBJECTIVE HEENT ROSANGELA Neck supple RS Equal AE b/l no added sounds CVS S1S2 normal no murmur P/A soft patient has a midline to fistulous upper wound is draining very little and the lower one is draining a copious amount of stool liquidy. And she does have a ileostomy. 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 Patient does have a fistula which is low output in the upper part of the incision AK I and multiple electrolyte abnormalities secondary to high output fistula and loss of electrolytes patient needs constant monitoring and replacement PLAN & TREATMENT Patient needs catheter into the fistula connected to the suction as an outpatient to and discussed with the porter sample case patient needs a fistula financial center manager and suction at the skilled facility to facilitate to wound healing patient needs close monitoring Patient needs to follow-up with the surgeon for probably definitive management DIAGNOSES & PROBLEMS Ready for Discharge (Yes/No)? Clark still necessary (Yes/No): Line still necessary (Yes/No): 24hr Labs 03/05 1044 POC Performing LocatioSee Note Glucose MKT161 H 03/05 0918 Glucose Zui528 H BUN41 H Creatinine Lvl2.18 H Sodium Zkp928 L Potassium Lvl3.2 L Chloride Lvl93 L CO233 H AGAP11.2 Calcium Lvl7.8 L eGFR23 WBC8.5 RBC3.23 L Hgb9.6 L Hct29.1 L MCV90.3 MCH29.8 MCHC33.0 RDW16.3 H Azfrxtju306 MPV6.8 L 03/05 0822 POC Performing LocatioSee Note Glucose POC96 03/05 0254 POC Performing LocatioSee Note Glucose POC92 03/04 2005 POC Performing LocatioSee Note Glucose PBT903 H 03/04 1748 POC Performing LocatioSee Note Glucose ACQ149 H VitalsTmp(F)UcetsNDWLMbH7TCA3 03/05 10:4198.127774/57--97--- 03/05 07:4498.8677338/82--98--- 03/05 03:0598.019367/706160--- 03/04 23:3498.7849251/773520--- 03/04 19:3397.054149/816404--- 24 Hr Tmax: 98.1F (36.72c) at 03/05 10:41Vital Signs are the last 5 in the past 48 hours. DateWt(kg)Wt(lb)Ht(cm)Ht(in)Method 02/25 (initial) 62.73 138.00Measured 57.48 62.00Stated I&ORecordInOutBal 02/2323hr Tot 2 0 2 02/2223hr Tot 1307 1325 -18 Medications (32) Active Scheduled Meds (5): 02/28/18 calcium carbonate (Tums) 1,000 mg CHEW TID-Before Meals 02/25/18 enoxaparin (Lovenox) 30 mg SUB-Q [id number] 03/02/18 metoprolol (metoprolol extended release) 25 mg PO Daily 02/27/18 nutritional supplement (Timothy packet) 1 pkt PO BID-Before Meals 02/27/18 zinc oxide topical (zinc oxide topical 20% ointment) TOP BID Unscheduled Meds: None PRN Meds (25): 02/27/18 Dextrose 50% in Water IV (Dextrose 50% Syringe) 12.5 gm IVP PRN 02/27/18 Dextrose 50% in Water IV (Dextrose 50% Syringe) 25 gm IVP PRN 02/25/18 QUEtiapine (SEROquel) 25 mg PO BID 02/25/18 acetaminophen-hydrocodone (Acton 5/325 oral tablet) 1 tab PO Q6H 02/25/18 acetaminophen 650 mg PO Q6H 02/25/18 bisacodyl 10 mg MN Daily 02/25/18 diphenhydrAMINE 25 mg PO Q6H 02/27/18 glucagon 1 mg IM PRN 02/25/18 hydrALAZINE 10 mg IVP Q4H 02/27/18 insulin lispro 2 unit SUB-Q TID-Before Meals 02/27/18 insulin lispro 4 unit SUB-Q TID-Before Meals 02/27/18 insulin lispro 6 unit SUB-Q TID-Before Meals 02/27/18 insulin lispro 8 unit SUB-Q TID-Before Meals 02/27/18 insulin lispro 10 unit SUB-Q TID-Before Meals 02/27/18 insulin lispro 1 unit SUB-Q Bedtime 02/27/18 insulin lispro 2 unit SUB-Q Bedtime 02/27/18 insulin lispro 3 unit SUB-Q Bedtime 02/27/18 insulin lispro 4 unit SUB-Q Bedtime 02/25/18 melatonin 3 mg PO Bedtime 02/25/18 morphine Sulfate 2 mg IVP Q4H 02/25/18 nicotine 21 mg TOP Daily 02/25/18 ondansetron 4 mg IVP Q6H 02/25/18 polyethylene glycol 3350 17 gm PO Daily 03/02/18 promethazine + Sodium Chloride 0.9% IV 50 mL 25 mg IVPB Q6H 153 ml/hr 02/25/18 trazodone 50 mg PO Bedtime One Time Meds (1): 03/05/18 (Ordered) potassium chloride (potassium chloride 20 mEq oral tablet, extended release) 40 mEq PO ONCE Continuous Infusions (1): 02/25/18 Sodium Chloride 0.9% IV 1,000 mL (NS 1,000 mL) 1,000 mL 125 ml/hr Extracted from: Title: Discharge Summary * Author: Joshua Healy MD Date: 03/05/18 Discharge Information Disposition to nursing home facility Condition stable Medications: See med reconciliation form Diet: Heart healthy Discharge Plan In the event of any worsening symptom patient was come back to the ED for further evaluation Discharge summary to greater than 35 minutes Extracted from: Title: Clinical Document Author: Celeste Samuels MD Date: 02/26/18 Wound care consultation Chief complaint: Wound care consultation was called for a sacral wound and ostomy with a chronic fistula and midline wound HISTORY OF PRESENT ILLNESS: The patient is a 67-year-old female with a significant past medical history of hypertension, hyperlipidemia, diabetes mellitus, diverticulitis, with multiple abdominal surgeries, underwent a colectomy with ileostomy placement at [place] in September as per her she had some blockage and it started leaking so Dr. Ram did a diversion ileostomy she says she did have a wound dehiscence and leaking since September which is being managed conservatively. According to the nurse patient wound looks much better. Apparently she was having a lot of abdominal pain and nausea and vomiting AK I and leukocytosis so she got admitted and wound care consultation was called. Patient could not be seen in the wound clinic as we do not have any wound financial center manager in the wound clinic and she was supposed to get a wound financial center manager from the [employer] and follow-up in the wound clinic REVIEW OF SYSTEMS: A 12-point review of systems are negative, otherwise stated in the HPI. PAST MEDICAL HISTORY: 1. Hypertension. 2. Hyperlipidemia. 3. Diabetes mellitus. 4. Diverticulitis. 5. Osteoarthritis. PAST SURGICAL HISTORY: 1. Bilateral knee arthroscopy. 2. Cholecystectomy. 3. Bilateral carpal tunnel release. 4. Hysterectomy. 5. Colectomy diverticulitis with ileostomy placement. SOCIAL HISTORY: Denies alcohol, IV drugs or tobacco. FAMILY HISTORY: Noncontributory. HOME MEDICATIONS: See reconciliation list. ALLERGIES: Ibuprofen. Motrin. Physical examination: Vital signs T-max 98.7 BP 127/66 pulse 86 HEENT ROSANGELA Neck supple RS Equal AE b/l no added sounds CVS S1S2 normal no murmur P/A soft patient has a midline to fistulous upper wound is draining very little and the lower one is draining a copious amount of stool liquidy. And she does have a ileostomy. Patient has an extensive excoriation in the midline. Fistula area secondary to stool irritation CNC PROGRAMMER AAox3 NO FND Skin no wounds seen on the sacrum except some dry excoriated skin Ext no edema PP +ve Lab data Sodium is 135 potassium 3.9 BUN 53 creatinine 2.43 her albumin is only 2.1 calcium is 6.5 corrected calcium is better .pro calcitonin is 0.30 and WBC count is 9.9 improved from 13.5 hemoglobin 8.7 hematocrit 25.7 platelet count is 432 hemoglobin A1c 6.6 urinalysis abnormal suggestive of UTI CT abdomen pelvis shows an enterocutaneous fistula midline anterior pelvis evidence of posterior partial colonic resection with anastomotic site in the lower pelvis Assessment and plan Postoperative chronic high output fistulaLooks like a colocutaneous fistulaIn the lower part. Upper part has looks like it low output fistula with extensive irritation from the stool Will discuss with theSurgeon and the ostomy nurse tomorrow to see if we can isolate the upper fistula with theNipple in the colostomy bag and lobar fistula separately Hypoalbuminemia patient needs a nutritional support Discussed with the nurse at bedside and patient will follow Thank you Dr. Healy for the consult Extracted from: Title: General Admission H&P * Author: Joshua Healy MD Date: 02/25/18 Impression and Plan 1. Abdominal pain with nausea/vomiting 2. Acute kidney injury secondary to dehydration and decreased oral intake 3. Enteric cutaneous fistula, improving 4. Leukocytosis with subjective fever 5. Urinary tract infection 6. Hypocalcemia 7. Generalized weakness and medically debilitated Plan: CT abdomen and pelvis: Reviewed IV fluid hydration, 2 L normal saline bolus given, renal consulted Wound care team consulted for enterocutaneous fistula and care IV antibiotics cefepime, blood and urine cultures collected 3 g calcium gluconate x1 PT/OT eval Lovenox for DVT prophylaxis Case management: [facility] facility placement Disposition: Inpatient DC planning: Patient will be discharged to nursing home facility placement.
--- OUTSIDE RECORDS SUMMARY | 2018-06-13 15:20 | XMS REPORT | Clinical Summary ---
Author Author [facility] Address Unknown Phone Unavailable Care Team Providers Care Company Pilot Name Role Phone Cody Cheng MD PCP Allergies Not on File Medications No known medications Active Problems No known active problems Encounters Care Team Description Date Type Specialty N/A 04/30/2018 Intake Access N/A 04/25/2018 Intake Access after 06/12/2017 Social History Date Tobacco Use Types Packs/Day Years Used Never Assessed Sex Assigned at Date Recorded Not on file Industry Job Start Date Occupation Not on file Not on file Not on file Travel End Travel History Travel Start No recent travel history available. Last Filed Vital Signs Not on file Plan of Treatment Health Maintenance Due Date Last Done Comments BREAST CANCER SCREENING 09/01/1999 COLON CANCER SCREENING 09/01/1999 SHINGLES VACCINES (#1) 09/01/1999 65+ PNEUMOCOCCAL VACCINE 2014 (1 of 2 - PCV13) PNEUMOCOCCAL 2014 POLYSACCHARIDE VACCINE AGE 65 AND OVER INFLUENZA VACCINE 09/11/2018 Results Not on fileafter 06/12/2017 Insurance Payer Benefit Subscriber ID Type Phone Address Plan / Group [employer] TEX[employer] xxxxxxxxx [facility] MEDICAID MEDICAID xxxxxxxxx Medicaid Advance Directives Patient has advance care planning documents on file. For more information, santosh ivan contact: Martin Buchanan [address] [place] [address]
[2018-06-13] MEDS ORDERED: ONDANSETRON HCL INJ 2MG/ML 2ML 2 MG/ML VIAL IV STA (15:51)
[2018-06-13] MEDS ORDERED: DIATRIZOATE MEGL/DIATRIZOA SOD 30 ML BTL PO ONE (15:58)
[2018-06-13] MEDS ORDERED: SODIUM CHLORIDE 0.9% 500ML 500 ML IV ONE (16:00)
[2018-06-13] MEDS ORDERED: MORPHINE SULFATE INJ 4 MG/ML INJ 1ML IV ONE (16:00)
--- NOTE | 2018-06-13 16:47 | Diagnostic Imaging Report ---
EXAMINATION: CHEST SINGLE (PORTABLE) INDICATION: Abdominal pain, nausea, vomiting. COMPARISON: None FINDINGS: TUBES and LINES: None. LUNGS: Lungs are well inflated. Lungs are clear. There is no evidence of pneumonia or pulmonary edema. PLEURA: No pleural effusion or pneumothorax. HEART AND MEDIASTINUM: The cardiomediastinal silhouette is unremarkable. There are atherosclerotic calcifications within the aorta. BONES AND SOFT TISSUES: No acute osseous abnormality. UPPER ABDOMEN: No free air under the diaphragm. IMPRESSION: No acute radiographic abnormality. Signed by: Dr. Kraig Lama MD on 06/13/2018 4:43 PM
[2018-06-13 17:02] LABS: BASOPHILS # (AUTO) 0.1 (0.0-0.1); BASOPHILS % 0.3 % (0.0-1.0); HEMATOCRIT 32.2 % (34.2-44.1); HEMOGLOBIN 11.2 g/dL (12.0-16.0); LYMPHOCYTES # (AUTO) 1.7 (1.0-3.2); LYMPHOCYTES % 8.2 % (18.0-39.1); MEAN CORPUSCULAR HEMOGLOBIN 29.3 pg (28-32); MEAN CORPUSCULAR HGB CONC 34.8 g/dL (31-35); MEAN CORPUSCULAR VOLUME 84.3 fL (81-99); MONOCYTES # (AUTO) 0.6 (0.2-0.8); NEUTROPHILS # (AUTO) 17.7 (2.1-6.9); NEUTROPHILS % 87.1 % (38.7-80.0); PLATELET COUNT 534 x10e3/uL (140-360); RED BLOOD COUNT 3.82 x10e6/uL (3.6-5.1)
[2018-06-13 17:22] LABS: INR 1.21; PROTHROMBIN TIME 15.9 seconds (11.9-14.5)
[2018-06-13 17:47] LABS: ANION GAP 24.9 mmol/L (8-16); BUN/CREATININE RATIO 20 (6-25); EST GLOMERULAR FILTRATION RATE 10 ML/MIN (60-); SODIUM 130 mmol/L (136-144)
[2018-06-13 17:48] LABS: BLOOD UREA NITROGEN 89 mg/dL (8-26); CARBON DIOXIDE 18 mmol/L (22-32); CHLORIDE 92 mmol/L (101-111); POTASSIUM 4.9 mmol/L (3.6-5.1)
[2018-06-13 17:49] LABS: CREATININE, SERUM 4.5 mg/dL (0.6-1.1); GLUCOSE 201 mg/dL (74-118)
[2018-06-13] MEDS ORDERED: SODIUM CHLORIDE 0.9% 1000ML 1,000 ML IV ONE (18:30)
[2018-06-13 18:50] LABS: ALANINE AMINOTRANSFERASE 14 IU/L (0-55); ALBUMIN/GLOBULIN RATIO 0.5 (0.8-2.0); ALKALINE PHOSPHATASE 352 IU/L (40-150); CALCIUM 8.2 mg/dL (8.4-10.2); CREATINE KINASE 14 IU/L (29-168); LIPASE 28 U/L (8-78)
[2018-06-13] MEDS: PIPERACILLIN/TAZO 2.25 GM 50 ML IV SCH (18:50)
--- NOTE | 2018-06-13 18:50 | NUR ---
REPORT GIVEN TO OLAMIDE ORTIZ BACK DIGGER OPERATOR NURSE.
[2018-06-13 18:51] LABS: MAGNESIUM 0.6 MG/DL (1.3-2.1)
[2018-06-13] MEDS ORDERED: MAGNESIUM SULFATE 2GM/50ML 50 ML IV ONE (19:00)
[2018-06-13] MEDS ORDERED: DEXTROSE 50% SYRINGE 50 ML IV PRN (19:15)
--- OUTSIDE RECORDS SUMMARY | 2018-06-13 19:16 | XMS REPORT | Clinical Summary ---
Author Author [facility] Address Unknown Phone Unavailable Care Team Providers Care Auto Tech Name Role Phone Cody Cheng PCP Jarrell Gaytan MD Unavailable Unavailable Arnulfo Pina MD 3 Allergies Not on File Medications End Date Status Medication Sig Dispensed Refills Start Date Active metoprolol (TOPROL-XL) Take 100 mg 0 100 MG 24 hr by mouth tabletIndications: ESRD daily. (end stage renal disease) ([facility]) Active pantoprazole (PROTONIX) Take 20 mg by 0 20 MG tabletIndications: mouth daily. ESRD (end stage renal disease) ([facility]) Active folic acid (FOLVITE) 1 MG Take 1 mg by 0 tabletIndications: ESRD mouth daily. (end stage renal disease) ([facility]) Active ondansetron (ZOFRAN) 8 MG Take by mouth 0 tabletIndications: ESRD every 8 (end stage renal disease) (eight) hours ([facility]) as needed for Nausea. Active sodium bicarbonate 650 MG Take 1 tablet 0 tabletIndications: ESRD by mouth 4 (end stage renal disease) (four) times ([facility]) daily. Active sertraline (ZOLOFT) 100 Take 100 mg 0 MG tabletIndications: by mouth ESRD (end stage renal daily. disease) ([facility]) Active ranitidine (ZANTAC) 150 Take 150 mg 0 MG capsuleIndications: by mouth 2 ESRD (end stage renal (two) times disease) ([facility]) daily. Active sevelamer (RENVELA) 800 Take 800 mg 0 mg tabletIndications: by mouth 3 ESRD (end stage renal (three) times disease) ([facility]) daily with meals. Active metoclopramide HCl Take 10 mg by 0 (REGLAN) 10 MG mouth 4 tabletIndications: ESRD (four) times (end stage renal disease) daily as ([facility]) needed for Nausea. Active amLODIPine (NORVASC) 10 Take 10 mg by 0 MG tabletIndications: mouth daily. ESRD (end stage renal disease) ([facility]) Active SUMAtriptan (IMITREX) 100 Take 100 mg 0 MG tabletIndications: by mouth once ESRD (end stage renal as needed for disease) ([facility]) Headaches. Active zolpidem (AMBIEN) 10 mg Take 10 mg by 0 tabletIndications: ESRD mouth every (end stage renal disease) night as ([facility]) needed for Insomnia. Active promethazine (PHENERGAN) Take 25 mg by 0 25 MG tabletIndications: mouth every 6 ESRD (end stage renal (six) hours disease) ([facility]) as needed for Nausea. Active insulin aspart (NOVOLOG) Inject 12 0 100 unit/mL Units InPnIndications: ESRD subcutaneousl (end stage renal disease) y 3 (three) ([facility]) times daily with meals. Active insulin detemir (LEVEMIR) Inject 30 0 100 unit/mL (3 mL) InPn Units injectionIndications: subcutaneousl ESRD (end stage renal y nightly. disease) ([facility]) Active vit B cmplex Take 1 tablet 0 2-KI-[id number]-biot-Zn ox by mouth 1-60-300-12.5 daily. ms-iy-[id number]-mg TabIndications: ESRD (end stage renal disease) ([facility]) Active cholecalciferol, vitamin Take 1,000 0 D3, 1,000 unit Units by capsuleIndications: ESRD mouth daily. (end stage renal disease) ([facility]) Active LORazepam (ATIVAN) 0.5 MG Take 0.5 mg 0 tabletIndications: ESRD by mouth (end stage renal disease) every 6 (six) ([facility]) hours as needed for Anxiety. Active Problems [...]
--- OUTSIDE RECORDS SUMMARY | 2018-06-13 19:16 | XMS REPORT | Clinical Summary ---
Author Author [facility] Address Unknown Phone Unavailable Care Team Providers Care Enamel Cracker Name Role Phone Cody Cheng MD PCP [...] Address Plan / Group [employer] TEX[employer] xxxxxxxxx [facility] MEDICAID MEDICAID xxxxxxxxx Medicaid Advance Directives Patient has advance care planning documents on file. For more information, santosh ivan contact: Martin Buchanan [address] [place] [address]
--- OUTSIDE RECORDS SUMMARY | 2018-06-13 19:17 | XMS REPORT | Continuity of Care Document ---
Author Author Mikki stevenann Organization Interface Address Unknown Phone Unavailable Problems Problem Status Onset Date Classification Date Reported Comments Source ABDOMINAL PAIN, ACUTE, ACUTE LOWER UTI, Active 02/25/2018 [facility] ABD PAIN Active 02/25/2018 [facility] N/V Active 01/21/2018 [facility] MAGI Active 01/21/2018 [facility] ABDOMINAL FISTULA LEAKING Active 12/31/2017 [facility] R10.10 - "UPPER ABDOMINAL PAIN, UNSPECIF Active 03/17/2015 [facility], OPID [facility] UNSPECIFIED ABDOMINAL PAIN Active [facility] FISTULA OF STOMACH AND DUODENUM Active [facility] ACUTE KIDNEY FAILURE, UNSPECIFIED Active [facility] URINARY TRACT INFECTION, SITE NOT SPECIF Active [facility] Medications Medication Details Route Status Patient Instructions Ordering Provider Order Date Source Octreotide 0.1 MG/ML Injectable Solution [Sandostatin] 100 microgram, SUB-Q, BID, X 30 day, # 60 vial, 0 Refill(s), other Active 03/05/2018 [facility] loperamide 2 mg oral capsule 2 mg=1 cap, PO, Q4H, PRN loose stools, # 30 cap, 0 Refill(s), other Active 03/05/2018 [facility] potassium chloride 20 mEq oral tablet, extended release 40 mEq, 2 tab, Route: PO, Drug form: ERTAB, ONCE, Dosing Weight 53.4, kg, Start date: 03/05/18 17:41:00 [employer], Stop date: 03/05/18 17:41:00 CSTNotes: (Same as: K- Dur 20) "Do Not Crush" Give with food and full glass of water For patients unable to swallow tablet, dissolve in one half glass of water. Allow about 2 minutes for the tablets to disintegrate. Stir before giving to prepare slurry an d administer. Please exclude Patients with feeding tube less than 14 Setswana (Dobhoff, J-tube etc) and pediatric and patients. Inactive 03/05/2018 [facility] Ondansetron 4 MG Disintegrating Tablet [Zofran] 4 mg=1 tab, PO, TID, Dissolve tab under tongue, # 20 tab, 0 Refill(s) Active 03/05/2018 [facility] enoxaparin 30 mg/0.3 mL subcutaneous solution 30 mg=0.3 mL, SUB-Q, [id number], 0 Refill(s) Active 03/05/2018 [facility] Acetaminophen 300 MG / Codeine Phosphate 30 MG Oral Tablet [Tylenol with Codeine #3] 1 tab, PO, Q6H, PRN Pain, # 25 tab, 0 Refill(s) Active 03/05/2018 [facility] Phenergan 25 mg oral tablet 25 mg=1 tab, PO, Q6H, PRN Nausea, # 30 tab, 0 Refill(s), other Active 03/05/2018 [facility] metoprolol extended release 25 mg, 1 tab, Route: PO, Drug form: ERTAB, Daily, Priority: NOW, Start date: 03/02/18 23:10:00 [employer], Duration: 30 day, Stop date: 04/01/18 9:00:00 CSTNotes: (Same as: Toprol XL) Do Not Crush No Longer Active 03/03/2018 [facility] Promethazine 25 mg, 1 mL, Route: IVPB, Q6H, Dosing Weight 53.4, kg, PRN Nausea & Vomiting, Start date: 03/02/18 7:41:00 [employer], Duration: 30 day, Stop date: 04/01/18 7:40:00 CSTNotes: Do not give IV push. (Same as: Phenergan) No Longer Active 03/02/2018 [facility] Magnesium Sulfate 2 gm, 50 mL, Route: IVPB, Drug form: INJ, ONCE, Dosing Weight 53.4, kg, Start date: 02/28/18 17:34:00 [employer], Stop date: 02/28/18 17:34:00 CSTNotes: WASTE: F/P - Sink; E - Municipal Trash Bin Inactive 02/28/2018 [facility] Tums 1,000 mg, 2 tab, Route: CHEW, Drug form: CHEWTAB, TID-Before Meals, Dosing Weight 53.4, kg, Start date: 02/28/18 16:30:00 [employer], Duration: 30 day, Stop date: 03/30/18 11:30:00 CSTNotes: (Same As: [place]) Calcium Carbonate 500 [id number] mg elemental calcium Dose= mg calcium carbonate ( mg elemental calcium) No Longer Active 02/28/2018 [facility] Calcium Gluconate 1,000 mg, 10 mL, Route: IVPB, ONCE, Dosing Weight 53.4, kg, Start date: 02/28/18 13:54:00 [employer], Stop date: 02/28/18 13:54:00 CSTNotes: WASTE: F/P - Sink; E - Municipal Trash Bin Inactive 02/28/2018 [facility] Magnesium Sulfate 2 gm, 50 mL, Route: IVPB, Drug form: INJ, ONCE, Dosing Weight 53.4, kg, Start date: 02/28/18 13:54:00 [employer], Stop date: 02/28/18 13:54:00 CSTNotes: WASTE: F/P - Sink; E - Municipal Trash Bin Inactive 02/28/2018 [facility] Magnesium Sulfate 2 gm, 50 mL, Route: IV, Drug form: INJ, ONCE, Dosing Weight 53.4, kg, Start date: 02/28/18 10:56:00 [employer], Stop date: 02/28/18 10:56:00 CSTNotes: WASTE: F/P - Sink; E - Municipal Trash Bin Inactive 02/28/2018 [facility] Dilaudid 1 mg, 1 mL, Route: IVP, Drug form: SOLN, ONCE, Dosing Weight 53.4, kg, Priority: STAT, Start date: 02/28/18 10:37:00 [employer], Stop date: 02/28/18 10:37:00 CSTNotes: (Same as: Dilaudid) Inactive 02/28/2018 [facility] Insulin Lispro 2 unit, 0.02 mL, Route: SUB-Q, Drug form: SOLN, Bedtime, Dosing Weight 53.4, kg, PRN Blood Glucose Results, Start date: 02/27/18 22:09:00 [employer], Duration: 30 day, Stop date: 03/29/18 22:08:00 CSTNotes: (Same as: Humalog ) Roll in palms of hands gently; Do not shake `vigorously. "Single Patient Use Only " WASTE: F/P - Black; E - Municipal Trash Bin Stable for 28 days at room temperature. Expires in days from Date No Longer Active 02/28/2018 [facility] Dextrose 50% Syringe 25 gm, 50 mL, Route: IVP, Drug Form: INJ, Dosing Weight 53.4, kg, PRN, PRN Blood Glucose Results, Start date: 02/27/18 22:09:00 [employer], Duration: 30 day, Stop date: 03/29/18 22:08:00 [employer] No Longer Active 02/28/2018 [facility] Glucagon 1 mg, Route: IM, Drug form: PDR/INJ, PRN, Dosing Weight 53.4, kg, PRN Blood Glucose Results, Start date: 02/27/18 22:09:00 [employer], Duration: 30 day, Stop date: 03/29/18 22:08:00 [employer] No Longer Active 02/28/2018 [facility] Tums 1,000 mg, 2 tab, Route: CHEW, Drug form: CHEWTAB, TID-Meals, Dosing Weight 53.4, kg, Start date: 02/27/18 17:00:00 [employer], Duration: 30 day, Stop date: 03/29/18 12:00:00 CSTNotes: (Same As: Tums) Calcium Carbonate 500 ol=093 mg elemental calcium Dose= mg calcium carbonate ( mg elemental calcium) No Longer Active 02/27/2018 [facility] Calcium Gluconate 2,000 mg, 20 mL, Route: IVPB, ONCE, Dosing Weight 53.4, kg, Start date: 02/27/18 10:59:00 [employer], Stop date: 02/27/18 10:59:00 CSTNotes: WASTE: F/P - Sink; E - Municipal Trash Bin Inactive 02/27/2018 [facility] Potassium Chloride 1.33 MEQ/ML Oral Solution 20 mEq, 1 tab, Route: PO, Drug form: ERTAB, ONCE, Dosing Weight 53.4, kg, Start date: 02/27/18 10:59:00 [employer], Stop date: 02/27/18 10:59:00 [employer] Inactive 02/27/2018 [facility] Zinc Oxide 0.2 MG/MG Topical Ointment Route: TOP, BID, Drug form: OINT, Start date: 02/27/18 9:00:00 [employer], Duration: 30 day, Stop date: 03/28/18 17:00:00 CSTNotes: Same as: Desitin No Longer Active 02/27/2018 [facility] Timothy packet 1 pkt, Route: PO, Drug Form: PWDR, Dosing Weight 53.4, kg, BID-Before Meals, Start date: 02/27/18 7:30:00 [employer], Duration: 28 day, Stop date: 03/26/18 16:30:00 CSTNotes: (Same as: Timothy Cuming) No Longer Active 02/27/2018 [facility] cefepime 1 gm, Route: IVPB, [id number], Dosing Weight 62.727, kg, (CrCl >/=50 ml/min), Start date: 02/26/18 16:00:00 [employer], Duration: 7 day, Stop date: 03/04/18 16:00:00 [employer], ABX Indication: Urinary Tract InfectionNotes: (Same As: Maxipime) MEDICATION WASTE Product Size: 1000 mg Product Wasted: ___ mg No Longer Active 02/26/2018 [facility] Promethazine 25 mg, PO, Q6H, 0 Refill(s) No Longer Active 02/26/2018 [facility] Famotidine 40 mg, PO, Bedtime, # 60 tab, 0 Refill(s) Active 02/26/2018 [facility] pramipexole 0.125 mg oral tablet 0.125 mg=1 tab, PO, Daily, 0 Refill(s) Active 02/26/2018 [facility] sucralfate 1 g oral tablet 1 gm=1 tab, PO, QID-Before Meals, 0 Refill(s) Active 02/26/2018 [facility] Sodium Bicarbonate 10 grain, PO, BID, 0 Refill(s) Active 02/26/2018 [facility] atorvastatin 40 mg oral tablet 40 mg=1 tab, PO, Bedtime, # 90 tab, 1 Refill(s) Active 02/26/2018 [facility] Lovenox 30 mg, 0.3 mL, Route: SUB-Q, Drug form: INJ, [id number], Dosing Weight 62.727, kg, Start date: 02/25/18 20:00:00 [employer], Duration: 30 day, Stop date: 03/26/18 20:00:00 CSTNotes: (Same as: Lovenox) No Longer Active 02/26/2018 [facility] Calcium Gluconate 3,000 mg, 30 mL, Route: IVPB, ONCE, Dosing Weight 62.727, kg, Start date: 02/25/18 18:58:00 [employer], Stop date: 02/25/18 18:58:00 CSTNotes: WASTE: F/P - Sink; E - Municipal Trash Bin Inactive 02/26/2018 [facility] Hydromorphone 0.5 mg, Route: IVP, ONCE, Dosing Weight 62.727, kg, Priority: STAT, Start date: 02/25/18 18:45:00 [employer], Stop date: 02/25/18 18:45:00 [employer] Inactive 02/26/2018 [facility] Hydralazine 10 mg, 0.5 mL, Route: IVP, Drug form: INJ, Q4H, Dosing Weight 62.727, kg, PRN Hypertension, Priority: Routine, Start date: 02/25/18 18:09:00 [employer], Duration: 30 day, Stop date: 03/27/18 18:08:00 CSTNotes: (Same as: Apresoline) Push over 5 minutes No Longer Active 02/26/2018 [facility] Seroquel 25 mg, 1 tab, Route: PO, Drug form: TAB, BID, Dosing Weight 62.727, kg, PRN Agitation, Start date: 02/25/18 18:09:00 [employer], Duration: 30 day, Stop date: 03/27/18 18:08:00 CSTNotes: (Same as: SEROquel) No Longer Active 02/26/2018 [facility] Acetaminophen 325 MG / Hydrocodone Bitartrate 5 MG Oral Tablet [[place] 5/325] 1 tab, Route: PO, Drug Form: TAB, Dosing Weight 62.727, kg, Q6H, PRN Pain Score 1-3, Start date: 02/25/18 18:09:00 [employer], Duration: 30 day, Stop date: 03/27/18 18:08:00 CSTNotes: (Same as: [place] 325/5) Do not exceed 4gm/day of acetaminophen. No Longer Active 02/26/2018 [facility] Morphine 2 mg, 0.5 mL, Route: IVP, Drug form: SOLN, Q4H, Dosing Weight 62.727, kg, PRN Pain Score 7-10, Start date: 02/25/18 18:09:00 [employer], Duration: 30 day, Stop date: 03/27/18 18:08:00 CSTNotes: (Same as:MORPhine Sulfate) No Longer Active 02/26/2018 [facility] magnesium citrate 58.2 MG/ML Oral Solution 300 ml, Route: PO, Drug Form: LIQ, Dosing Weight 62.727, kg, ONCE, PRN Constipation, Start date: 02/25/18 18:09:00 CSTNotes: (Same as: Citrate of Magnesia) Concentration: 1.745 gm / 30 mL No Longer Active 02/26/2018 [facility] Nicotine 21 mg, 1 patch, Route: TOP, Drug form: ERFILM, Daily, Dosing Weight 62.727, kg, PRN as needed for smoking cessation, Start date: 02/25/18 18:09:00 [employer], Duration: 30 day, Stop date: 03/27/18 18:08:00 [employer] Notes: (Same as: Habitrol) "Remove old patch before application of new patch" WASTE: F/P - P Waste Black; E - P Waste Black No Longer Active 02/26/2018 [facility] Glucagon 1 mg, Route: IM, Drug form: PDR/INJ, PRN, Dosing Weight 62.727, kg, PRN Blood Glucose Results, Start date: 02/25/18 18:09:00 [employer], Duration: 30 day, Stop date: 03/27/18 18:08:00 [employer] No Longer Active 02/26/2018 [facility] Dextrose 50% Syringe 12.5 gm, 25 mL, Route: IVP, Drug Form: INJ, Dosing Weight 62.727, kg, PRN, PRN Blood Glucose Results, Start date: 02/25/18 18:09:00 [employer], Duration: 30 day, Stop date: 03/27/18 18:08:00 [employer] No Longer Active 02/26/2018 [facility] Acetaminophen 650 mg, 2 tab, Route: PO, Drug form: TAB, Q6H, Dosing Weight 62.727, kg, PRN For Temp > 100.4 F, Start date: 02/25/18 18:09:00 [employer], Duration: 30 day, Stop date: 03/27/18 18:08:00 CSTNotes: Do not exceed 4 gm/day. (Same as: Tylenol) No Longer Active 02/26/2018 [facility] Trazodone 50 mg, 1 tab, Route: PO, Drug form: TAB, Bedtime, Dosing Weight 62.727, kg, PRN Insomnia, Start date: 02/25/18 18:09:00 [employer], Duration: 30 day, Stop date: 03/27/18 18:08:00 CSTNotes: (Same As: Desyrel) No Longer Active 02/26/2018 [facility] Melatonin 3 mg, 1 tab, Route: PO, Drug form: TAB, Bedtime, Dosing Weight 62.727, kg, PRN Insomnia, Start date: 02/25/18 18:09:00 [employer], Duration: 30 day, Stop date: 03/27/18 18:08:00 CSTNotes: (Same as: Melatonin) No Longer Active 02/26/2018 [facility] Diphenhydramine 25 mg, 1 tab, Route: PO, Drug form: TAB, Q6H, Dosing Weight 62.727, kg, PRN as needed for allergy symptoms, Start date: 02/25/18 18:09:00 [employer], Duration: 30 day, Stop date: 03/27/18 18:08:00 [employer] No Longer Active 02/26/2018 [facility] POLYETHYLENE GLYCOL 3350 17 gm, 1 pkt, Route: PO, Drug form: PWDR, Daily, Dosing Weight 62.727, kg, PRN Constipation, Start date: 02/25/18 18:09:00 [employer], Duration: 30 day, Stop date: 03/27/18 18:08:00 CSTNotes: Dissolve in 8 oz of water or juice. (Same as: Miralax) No Longer Active 02/26/2018 [facility] Ondansetron 4 mg, 2 mL, Route: IVP, Drug form: INJ, Q6H, Dosing Weight 62.727, kg, PRN Nausea & Vomiting, Start date: 02/25/18 18:09:00 [employer], Duration: 30 day, Stop date: 03/27/18 18:08:00 CSTNotes: (Same as: Zofran) MEDICATION WASTE Product Size: 4 mg Product Wasted: ___ mg No Longer Active 02/26/2018 [facility] Bisacodyl 10 mg, 1 supp, Route: ID, Drug form: SUPP, Daily, Dosing Weight 62.727, kg, PRN Constipation, Start date: 02/25/18 18:09:00 [employer], Duration: 30 day, Stop date: 03/27/18 18:08:00 CSTNotes: (Same As: Dulcolax, Bisco-Lax) No Longer Active 02/26/2018 [facility] NS 1,000 mL 1,000 mL, Rate: 125 ml/hr, Infuse over: 8 hr, Route: IV, Dosing Weight 53.4 kg, Total Volume: 1,000, Start date: 02/25/18 16:38:00 [employer], Duration: 30 day, Stop date: 03/27/18 16:37:00 [employer], 1.38, m2 No Longer Active 02/25/2018 [facility] Sodium Chloride 0.9% (Bolus) IV 1,000 mL, 1000 ml/hr, Infuse Over: 1 hr, Route: IV, 1,000, Drug form: INJ, ONCE, Priority: STAT, Dosing Weight 62.727 kg, Start date: 02/25/18 15:24:00 [employer], Stop date: 02/25/18 15:24:00 [employer] IN[employer]ER Inactive 02/25/2018 [facility] cefepime 1 gm, Route: IVPB, ONCE, Dosing Weight 62.727, kg, Priority: STAT, Start date: 02/25/18 15:20:00 [employer], Stop date: 02/25/18 15:20:00 [employer]ER, ABX Indication: Urinary Tract Infection Inactive 02/25/2018 [facility] Morphine 2 mg, 1 mL, Route: IVP, Drug form: SOLN, ONCE, Dosing Weight 62.727, kg, Priority: STAT, Start date: 02/25/18 13:24:00 [employer], Stop date: 02/25/18 13:24:00 [employer] IN[employer]ER Inactive 02/25/2018 [facility] Ondansetron 4 mg, 2 mL, Route: IVP, Drug form: INJ, ONCE, Dosing Weight 62.727, kg, Priority: STAT, Start date: 02/25/18 13:24:00 [employer], Stop date: 02/25/18 13:24:00 CSTNotes: (Same as: Tomas) MEDICATION WASTE Product Size: 4 mg Product Wasted: ___ mg Inactive 02/25/2018 [facility] Sodium Chloride 0.9% (Bolus) IV 1,000 mL, 1000 ml/hr, Infuse Over: 1 hr, Route: IV, 1,000, Drug form: INJ, ONCE, Priority: STAT, Dosing Weight 62.727 kg, Start date: 02/25/18 13:24:00 [employer], Stop date: 02/25/18 13:24:00 [employer] IN[employer]ER Inactive 02/25/2018 [facility] Saline Flush 0.9% 10 mL, Route: IVP, Drug Form: INJ, Dosing Weight 62.727, kg, PRN, PRN Line Flush, Start date: 02/25/18 13:24:00 [employer], Duration: 30 day, Stop date: 03/27/18 13:23:00 CSTNotes: Same as: BD Posiflush Sterile No Longer Active 02/25/2018 [facility] Allergies, Adverse Reactions, Alerts Substance Category Reaction Severity Reaction type Status Date Reported Comments Source ibuprofen Assertion Drug allergy Active [facility] Motrin Assertion Drug allergy Active [facility] Immunizations Immunization Date Given Site Status Last Updated Comments Source Results Order Name Results Value Reference Range Date Interpretation Comments Source ELECTROLYTES AGAP 11.2 meq/L 10.0 - 20.0 03/05/2018 [facility] ELECTROLYTES Sodium Lvl 134 meq/L 135 - 145 03/05/2018 [facility] ELECTROLYTES Potassium Lvl 3.2 meq/L 3.5 - 5.1 03/05/2018 [facility] ELECTROLYTES Chloride Lvl 93 meq/L 95 - 109 03/05/2018 [facility] ELECTROLYTES eGFR 23 mL/min/1.73m2 03/05/2018 Result Comment: The eGFR is calculated using the [...] from the National Kidney Disease Education Program (NKDEP) which additionally recommends that when the eGFR is used in patients with extremes of body mass index for purposes of drug dosing, the eGFR should be multiplied by the estimated BMI. [facility] ELECTROLYTES Calcium Lvl 7.8 mg/dL 8.5 - 10.5 03/05/2018 [facility] ELECTROLYTES Creatinine Lvl 2.18 mg/dL 0.50 - 1.40 03/05/2018 [facility] ELECTROLYTES CO2 33 meq/L 24 - 32 03/05/2018 [facility] ELECTROLYTES Glucose Lvl 117 mg/dL 70 - 99 03/05/2018 [facility] ELECTROLYTES BUN 41 mg/dL 7 - 03/05/2018 [facility] HEMATOLOGY MCH 29.8 pg 27.0 - 31.0 03/05/2018 [facility] HEMATOLOGY MCV 90.3 fL 80.0 - 98.0 03/05/2018 [facility] HEMATOLOGY Hct 29.1 % 36.0 - 48.0 03/05/2018 [facility] MPV 6.8 fL 7.4 - 10.4 03/05/2018 [facility] HEMATOLOGY Platelet 295 K/CMM 133 - 450 03/05/2018 [facility] HEMATOLOGY RDW 16.3 % 11.5 - 14.5 03/05/2018 [facility] RBC 3.23 M/CMM 4.20 - 5.40 03/05/2018 [facility] WBC 8.5 K/CMM 3.7 - 10.4 03/05/2018 [facility] Hgb 9.6 g/dL 12.0 - 16.0 03/05/2018 [facility] MCHC 33.0 g/dL 32.0 - 36.0 03/05/2018 [facility] CHEM PANEL Glucose Lvl 150 mg/dL 70 - 99 03/04/2018 [facility] CHEM PANEL BUN 50 mg/dL 7 - 03/04/2018 [facility] CHEM PANEL Calcium Lvl 7.5 mg/dL 8.5 - 10.5 03/04/2018 [facility] CHEM PANEL Chloride Lvl 93 meq/L 95 - 109 03/04/2018 [facility] CHEM PANEL CO2 30 meq/L 24 - 32 03/04/2018 [facility] CHEM PANEL AGAP 15.7 meq/L 10.0 - 20.0 03/04/2018 [facility] CHEM PANEL eGFR 20 mL/min/1.73m2 03/04/2018 Result Comment: The eGFR is calculated using the [...] from the National Kidney Disease Education Program (NKDEP) which additionally recommends that when the eGFR is used in patients with extremes of body mass index for purposes of drug dosing, the eGFR should be multiplied by the estimated BMI. [facility] CHEM PANEL Sodium Lvl 135 meq/L 135 - 145 03/04/2018 [facility] CHEM PANEL Potassium Lvl 3.7 meq/L 3.5 - 5.1 03/04/2018 [facility] CHEM PANEL Creatinine Lvl 2.41 mg/dL 0.50 - 1.40 03/04/2018 [facility] CHEM PANEL eGFR 14 mL/min/1.73m2 03/03/2018 Result Comment: The eGFR is calculated using the [...] from the National Kidney Disease Education Program (NKDEP) which additionally recommends that when the eGFR is used in patients with extremes of body mass index for purposes of drug dosing, the eGFR should be multiplied by the estimated BMI. [facility] CHEM PANEL BUN 49 mg/dL 7 - 22 03/03/2018 [facility] CHEM PANEL Glucose Lvl 211 mg/dL 70 - 99 03/03/2018 [facility] CHEM PANEL Creatinine Lvl 3.34 mg/dL 0.50 - 1.40 03/03/2018 [facility] CHEM PANEL Potassium Lvl 3.5 meq/L 3.5 - 5.1 03/03/2018 [facility] CHEM PANEL Sodium Lvl 134 meq/L 135 - 145 03/03/2018 [facility] CHEM PANEL Chloride Lvl 88 meq/L 95 - 109 03/03/2018 [facility] CHEM PANEL Calcium Lvl 8.3 mg/dL 8.5 - 10.5 03/03/2018 [facility] CHEM PANEL CO2 31 meq/L 24 - 32 03/03/2018 [facility] CHEM PANEL AGAP 18.5 meq/L 10.0 - 20.0 03/03/2018 [facility] CHEM PANEL Magnesium Lvl 2.8 mg/dL 1.8 - 2.4 03/01/2018 [facility] CHEM PANEL Phosphorus 3.5 mg/dL 2.5 - 4.5 03/01/2018 [facility] PARATHYROID PROFILE Ca Ion WB 1.15 mMol/L 1.05 - 1.25 03/01/2018 [facility] PARATHYROID PROFILE Ca Norm WB 1.15 mMol/L 1.05 - 1.25 03/01/2018 [facility] CHEM PANEL Phosphorus 4.2 mg/dL 2.5 - 4.5 02/28/2018 [facility] CHEM PANEL Magnesium Lvl 0.5 mg/dL 1.8 - 2.4 02/28/2018 Result Comment: Critical Result(s) called to Pushpa Hester at 02/28/2018 10:16 by DMF. Read back OK. [facility] CHEM PANEL Phosphorus 2.1 mg/dL 2.5 - 4.5 02/28/2018 [facility] CHEM PANEL Magnesium Lvl null 1.8 - 2.4 02/28/2018 Result Comment: Critical Result(s) called to RN. Milly Thao at 02/28/2018 05:40 by drt. Read back OK. [facility] CHEM PANEL Vitamin D, 25-OH, Total 24.8 ng/mL 30.0 - 100.0 02/27/2018 [facility] PARATHYROID PROFILE PTH Intact 50.3 pg/mL 18.4 - 80.1 02/27/2018 [facility] HEMATOLOGY Lymphocytes # 2.3 K/CMM 1.0 - 5.5 02/27/2018 [facility] HEMATOLOGY Basophils # 0.1 K/CMM 0.0 - 0.2 02/27/2018 [facility] HEMATOLOGY Monocytes # 1.0 K/CMM 0.0 - 0.8 02/27/2018 [facility] HEMATOLOGY Eosinophils # 0.2 K/CMM 0.0 - 0.5 02/27/2018 [facility] HEMATOLOGY Neutrophils # 5.2 K/CMM 1.5 - 8.1 02/27/2018 [facility] HEMATOLOGY Basophils 1.0 % 0.0 - 1.0 02/27/2018 [facility] HEMATOLOGY Eosinophils 2.0 % 0.0 - 4.0 02/27/2018 [facility] HEMATOLOGY Lymphocytes 26.5 % 20.0 - 40.0 02/27/2018 [facility] HEMATOLOGY Monocytes 11.6 % 2.0 - 12.0 02/27/2018 [facility] HEMATOLOGY Segs 58.9 % 45.0 - 75.0 02/27/2018 [facility] HEMATOLOGY MCHC 32.6 g/dL 32.0 - 36.0 02/27/2018 [facility] HEMATOLOGY MPV 6.9 fL 7.4 - 10.4 02/27/2018 [facility] HEMATOLOGY Platelet 382 K/CMM 133 - 450 02/27/2018 [facility] HEMATOLOGY RDW 16.5 % 11.5 - 14.5 02/27/2018 [facility] MCH 29.5 pg 27.0 - 31.0 02/27/2018 [facility] HEMATOLOGY MCV 90.4 fL 80.0 - 98.0 02/27/2018 [facility] HEMATOLOGY RBC 3.24 M/CMM 4.20 - 5.40 02/27/2018 [facility] HEMATOLOGY WBC 8.8 K/CMM 3.7 - 10.4 02/27/2018 [facility] HEMATOLOGY Hct 29.3 % 36.0 - 48.0 02/27/2018 [facility] HEMATOLOGY Hgb 9.6 g/dL 12.0 - 16.0 02/27/2018 [facility] HEMATOLOGY MCV 88.6 fL 80.0 - 98.0 02/26/2018 [facility] MCH 29.8 pg 27.0 - 31.0 02/26/2018 [facility] MCHC 33.7 g/dL 32.0 - 36.0 02/26/2018 [facility] HEMATOLOGY MPV 6.5 fL 7.4 - 10.4 02/26/2018 [facility] HEMATOLOGY Hct 25.7 % 36.0 - 48.0 02/26/2018 [facility] HEMATOLOGY Platelet 432 K/CMM 133 - 450 02/26/2018 [facility] HEMATOLOGY RDW 16.1 % 11.5 - 14.5 02/26/2018 [facility] HEMATOLOGY WBC 9.9 K/CMM 3.7 - 10.4 02/26/2018 [facility] HEMATOLOGY RBC 2.91 M/CMM 4.20 - 5.40 02/26/2018 [facility] HEMATOLOGY Hgb 8.7 g/dL 12.0 - 16.0 02/26/2018 [facility] LIPIDS Chol 106 mg/dL <=199 mg/dL 02/26/2018 [facility] LIPIDS Trig 220 mg/dL <=149 mg/dL 02/26/2018 [facility] LIPIDS HDL 34 mg/dL >=61 mg/dL 02/26/2018 [facility] LIPIDS LDL (Calculated) 28 mg/dL <=99 mg/dL 02/26/2018 [facility] LIPIDS VLDL 44 02/26/2018 [facility] LIPIDS CHD Risk 3.12 3.90 - 5.80 02/26/2018 [facility] SPECIAL CHEMISTRY Hgb A1C 6.6 % <=5.6 % 02/26/2018 [facility] URINE AND STOOL UA RBC 132 /HPF 0 - 2 02/26/2018 [facility] URINE AND STOOL UA Sq Epi Many /LPF Few /LPF 02/26/2018 [facility] URINE AND STOOL UA WBC null 0 - 5 02/26/2018 [facility] URINE AND STOOL UA Bacteria Occasional /HPF None Seen /HPF 02/26/2018 [facility] URINE AND STOOL UA Mucus Few /LPF None Seen /LPF 02/26/2018 [facility] URINE AND STOOL UA Nitrite Negative (02/25/18 11:35 PM) Negative 02/26/2018 [facility] URINE AND STOOL UA Leuk Est Small *ABN* (02/25/18 11:35 PM) Negative 02/26/2018 [facility] URINE AND STOOL UA Urobilinogen 0.2 EU/dL 0.1 - 1.0 02/26/2018 [facility] URINE AND STOOL UA Protein 100 mg/dL Negative mg/dL 02/26/2018 [facility] URINE AND STOOL UA Color Yellow *NA* (02/25/18 11:35 PM) Yellow 02/26/2018 [facility] URINE AND STOOL UA Turbidity Cloudy *ABN* (02/25/18 11:35 PM) Clear 02/26/2018 [facility] URINE AND STOOL UA pH 5.5 5.0 - 8.0 02/26/2018 [facility] URINE AND STOOL UA Spec Grav >=1.030 *ABN* (02/25/18 11:35 PM) <=1.030 02/26/2018 [facility] URINE AND STOOL UA Blood Large *ABN* (02/25/18 11:35 PM) Negative 02/26/2018 [facility] URINE AND STOOL UA Glucose 100 mg/dL Negative mg/dL 02/26/2018 [facility] URINE AND STOOL UA Bili Moderate *ABN* (02/25/18 11:35 PM) Negative 02/26/2018 [facility] URINE AND STOOL UA Ketones Trace *ABN* (02/25/18 11:35 PM) Negative 02/26/2018 [facility] URINE CHEM U Creatinine 213.00 mg/dL 02/26/2018 [facility] URINE CHEM U Sodium 6 meq/L 02/26/2018 [facility] Culture: Urine Specimen contains 3 or more potential pathogens; recommend correlation with urinalysis; if catheterized specimen recommend removal and recollection. If clinical situation warrants please call the laboratory for further testing. [place] Microbiology [phone]. 02/26/2018 [facility] HEMATOLOGY Monocytes # 0.9 K/CMM 0.0 - 0.8 02/26/2018 [facility] HEMATOLOGY Basophils # 0.1 K/CMM 0.0 - 0.2 02/26/2018 [facility] HEMATOLOGY Lymphocytes # 1.7 K/CMM 1.0 - 5.5 02/26/2018 [facility] HEMATOLOGY Neutrophils # 10.8 K/CMM 1.5 - 8.1 02/26/2018 [facility] HEMATOLOGY Basophils 0.6 % 0.0 - 1.0 02/26/2018 [facility] HEMATOLOGY RBC Morph Normal (02/25/18 6:29 PM) 02/26/2018 [facility] Plt Morph Normal (02/25/18 6:29 PM) 02/26/2018 [facility] HEMATOLOGY Segs 80.6 % 45.0 - 75.0 02/26/2018 [facility] Monocytes 6.4 % 2.0 - 12.0 02/26/2018 [facility] HEMATOLOGY Eosinophils 0.1 % 0.0 - 4.0 02/26/2018 [facility] Lymphocytes 12.3 % 20.0 - 40.0 02/26/2018 [facility] CHEM PANEL A/G Ratio 0.5 0.7 - 1.6 02/25/2018 [facility] CHEM PANEL Albumin Lvl 2.1 g/dL 3.5 - 5.0 02/25/2018 [facility] CHEM PANEL Globulin 4.5 g/dL 2.7 - 4.2 02/25/2018 [facility] CHEM PANEL Total Protein 6.6 g/dL 6.4 - 8.4 02/25/2018 [facility] CHEM PANEL AST 22 unit/L 0 - 37 02/25/2018 [facility] CHEM PANEL Alk Phos 70 unit/L 39 - 136 02/25/2018 [facility] CHEM PANEL Bili Total 0.3 mg/dL 0.2 - 1.3 02/25/2018 [facility] CHEM PANEL ALT 11 unit/L 0 - 65 02/25/2018 [facility] CHEM PANEL B/C Ratio 20 6 - 25 02/25/2018 [facility] CHEM PANEL Lactic Acid Lvl 1.1 mMol/L 0.5 - 2.2 02/25/2018 [facility] CHEM PANEL Procalcitonin Lvl 0.30 ng/mL 0.00 - 0.10 02/25/2018 [facility] URINE AND STOOL UA Protein 100 mg/dL Negative mg/dL 02/25/2018 [facility] URINE AND STOOL UA Glucose Negative (02/25/18 3:19 PM) Negative 02/25/2018 [facility] URINE AND STOOL UA Bili Small *ABN* (02/25/18 3:19 PM) Negative 02/25/2018 [facility] URINE AND STOOL UA Urobilinogen 0.2 EU/dL 0.1 - 1.0 02/25/2018 [facility] URINE AND STOOL UA Ketones Trace *ABN* (02/25/18 3:19 PM) Negative 02/25/2018 [facility] URINE AND STOOL UA Blood Moderate *ABN* (02/25/18 3:19 PM) Negative 02/25/2018 [facility] URINE AND STOOL UA Turbidity Marked *ABN* (02/25/18 3:19 PM) Clear 02/25/2018 [facility] URINE AND STOOL UA Spec Grav >=1.030 *ABN* (02/25/18 3:19 PM) <=1.030 02/25/2018 [facility] URINE AND STOOL UA pH 5.5 5.0 - 8.0 02/25/2018 [facility] URINE AND STOOL UA Bacteria Moderate /HPF None Seen /HPF 02/25/2018 [facility] URINE AND STOOL UA Mucus Few /LPF None Seen /LPF 02/25/2018 [facility] URINE AND STOOL UA WBC >182 /HPF 0 - 5 02/25/2018 [facility] URINE AND STOOL UA Leuk Est Moderate *ABN* (02/25/18 3:19 PM) Negative 02/25/2018 [facility] URINE AND STOOL UA Sq Epi Occasional /LPF Few /LPF 02/25/2018 [facility] URINE AND STOOL UA Nitrite Negative (02/25/18 3:19 PM) Negative 02/25/2018 [facility] URINE AND STOOL UA RBC 3-5 /HPF 0 - 2 02/25/2018 [facility] URINE AND STOOL UA Color See Note 1 (02/25/18 3:19 PM) Yellow 02/25/2018 Result Comment: Urine color is white(mucus)on 02/25/2018 16:39 by Pj. [facility] CHEM PANEL Lipase Lvl 78 unit/L 73 - 393 02/25/2018 [facility] CHEM PANEL Amylase Lvl 24 unit/L 25 - 115 02/25/2018 [facility] HEMATOLOGY PTT 39.4 s 22.9 - 35.8 02/25/2018 [facility] HEMATOLOGY INR 1.20 0.85 - 1.17 02/25/2018 [facility] HEMATOLOGY PT 15.0 s 12.0 - 14.7 02/25/2018 [facility] HEMATOLOGY Basophils # 0.1 K/CMM 0.0 - 0.2 02/25/2018 [facility] HEMATOLOGY Lymphocytes # 1.6 K/CMM 1.0 - 5.5 02/25/2018 [facility] HEMATOLOGY Eosinophils # 0.1 K/CMM 0.0 - 0.5 02/25/2018 [facility] HEMATOLOGY Monocytes # 1.2 K/CMM 0.0 - 0.8 02/25/2018 [facility] HEMATOLOGY Neutrophils # 13.7 K/CMM 1.5 - 8.1 02/25/2018 [facility] HEMATOLOGY Basophils 0.7 % 0.0 - 1.0 02/25/2018 [facility] HEMATOLOGY Eosinophils 0.4 % 0.0 - 4.0 02/25/2018 [facility] HEMATOLOGY Lymphocytes 9.4 % 20.0 - 40.0 02/25/2018 [facility] HEMATOLOGY Segs 82.5 % 45.0 - 75.0 02/25/2018 [facility] HEMATOLOGY Monocytes 7.0 % 2.0 - 12.0 02/25/2018 [facility] CHEM PANEL AST 21 unit/L 0 - 37 02/25/2018 [facility] CHEM PANEL Alk Phos 87 unit/L 39 - 136 02/25/2018 [facility] CHEM PANEL Bili Total 0.4 mg/dL 0.2 - 1.3 02/25/2018 [facility] CHEM PANEL ALT 13 unit/L 0 - 65 02/25/2018 [facility] CHEM PANEL A/G Ratio 0.5 0.7 - 1.6 02/25/2018 [facility] CHEM PANEL B/C Ratio 17 6 - 25 02/25/2018 [facility] CHEM PANEL Total Protein 8.4 g/dL 6.4 - 8.4 02/25/2018 [facility] CHEM PANEL Albumin Lvl 2.8 g/dL 3.5 - 5.0 02/25/2018 [facility] CHEM PANEL Globulin 5.6 g/dL 2.7 - 4.2 02/25/2018 [facility] Retroperitoneal Complete US Retroperitoneal Complete US Clinical Indication: Renal insufficiency - magi. Comparison: 01/01/2018. TECHNIQUE: Multiple longitudinal and transverse real time sonographic images of the kidneys and urinary bladder are obtained.. Findings: IVC: Normal. Aorta: Normal. Common iliacs: Not visualized. Right kidney: 10.6 x 4.7 x 2.7 cm. Diffuse renal cortical atrophy. Normal echogenicity. No hydronephrosis or renal lesions. Left kidney: 9.4 x 4.4 x 3.5 cm. Normal echogenicity. Mild diffuse renal cortical atrophy. No hydronephrosis or renal lesions. Bladder: Normal. IMPRESSION: Bilateral renal cortical atrophy. SL: [id number] 02/25/2018 - - Read by: Juve Pfeiffer MD Dictated Date/time: 02/26/18 05:13 Electronically Signed by: Juve Pfeiffer MD 02/26/18 05:16 FINAL REPORT [facility] Abdomen/Pelvis wo IV contrast CT Abdomen/Pelvis wo IV contrast CT PROCEDURE: CT ABDOMEN AND PELVIS WITHOUT CONTRAST Clinical Indication: Abdominal pain for the past week in the region of her colostomy appliance. . Comparison: 01/21/2018 CT chest abdomen pelvis. TECHNIQUE: Helical imaging was performed diaphragm through the symphysis with multiplanar reconstructions. IV CONTRAST: None. GI CONTRAST: None. CT imaging performed at this location utilizes radiation dose optimization techniques which include one or more of the following: -Automated exposure control -Adjustment of the mA and/or kV according to patient size -Use of iterative reconstruction technique CT Radiation Dose DLP 716.08 mGy-cm FINDINGS: This examination is limited for the evaluation of solid organs and vascular structures due to lack of intravenous contrast. LOWER CHEST: The lung bases are clear. LIVER: Normal. GALLBLADDER: Cholecystectomy. SPLEEN: Normal. PANCREAS: Normal. ADRENALS: Normal. KIDNEYS: Small cyst lower portion right kidney stable from January of last year. Kidneys otherwise normal. BOWEL: There is a left mid abdominal wall ileostomy. Anastomotic site in the lower pelvis consistent with prior partial colectomy. No evidence of obstruction. 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 This is best demonstrated on axial image 68 series 2. PERITONEUM: No free intraperitoneal fluid or air. RETROPERITONEUM: No adenopathy. The aorta is normal. PELVIS: No pelvic mass. The urinary bladder is normal. MUSCULOSKELETAL: Bony hemangioma L5 and T12 vertebral bodies. This is a benign incidental finding. Bones intact. IMPRESSION: 1. Enterocutaneous fistula midline anterior pelvis. 2. Evidence of prior partial colon resection with anastomotic site in the lower pelvis. 3. Small right renal cyst. END REPORT SL: [id number] 02/25/2018 - - Read by: Marcio Barroso MD Dictated Date/time: 02/25/18 16:26 Electronically Signed by: Marcio Barroso MD 02/25/18 16:34 FINAL REPORT [facility] Ext Upper Venous Doppler Unilat US Ext Upper Venous Doppler Unilat US Clinical Indication: Right forearm pain. Comparison: None TECHNIQUE: Sonographic evaluation of the right upper extremity veins was performed using high resolution B-mode imaging, along with pulse and color Doppler imaging. FINDINGS: The right internal jugular vein is partially noncompressible. There is linear echogenic material along the nelson of the right internal jugular vein. No sonographic evidence for DVT within the subclavian vein, axillary vein, brachial vein, radial and ulnar veins. These veins are compressible with normal color flow demonstrated on Doppler spectral analysis. The basilic and cephalic veins are patent. REFERENCE: DEEP VEINS: internal jugular, subclavian, axillary, brachial, radial, and ulnar SUPERFICIAL: basilic, cephalic IMPRESSION: Partial noncompressibility of the right internal jugular vein associated with linear echogenic material along the nelson, suspicious for nonocclusive, chronic thrombus. Findings discussed with Dr. Healy by Dr. Kim at the time of dictation. MADHAVI: ALBERTA 02/08/2018 - - Read by: Azalia Kim MD Dictated Date/time: 02/08/18 14:59 Electronically Signed by: Azalia Kim MD 02/08/18 15:09 FINAL REPORT [facility] Forearm 2 views DX Forearm 2 views DX Patient Name: JOSÉ MIGUEL MCGINNIS : 1950; Age: 67 years y/o Female MR: [id number] * RIGHT FOREARM, 2 views History: Right forearm pain. Technique: Frontal and lateral radiographs of the right forearm were obtained. FINDINGS: There is no evidence of fracture, dislocation, or acute change. There are no destructive lesions or other osseous abnormalities. IMPRESSION: 1. Negative right forearm. SL: [id number] 02/08/2018 - - Read by: Denzel Benson MD Dictated Date/time: 02/08/18 14:49 Electronically Signed by: Denzel Benson MD 02/08/18 14:49 FINAL REPORT [facility] Chest 1view DX Chest 1view DX Clinical Indication: - fever, tachycardia, chills. Comparison: 01/21/2018 Findings: Frontal view of the chest was obtained. Left internal jugular CVC tip projects over the superior cavoatrial junction. The cardiac silhouette is normal. Atheromatous changes are present in the aorta. There is no lobar consolidation, effusion or edema. No pneumothorax. No acute osseous abnormality. IMPRESSION: No acute cardiopulmonary abnormality. 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 Comparison: None. Preoperative diagnosis: Need for central venous access. Postoperative diagnosis: Need for central venous access. PROCEDURE: Ultrasound and fluoroscopic-guided placement of a left internal jugular temporary central venous catheter. Pain control: Subcutaneous 1% lidocaine for local anesthesia. Ultrasound: Utilized for venous access. Image was stored to the medical record. Venous access: Left internal jugular vein Fluoroscopy: Utilized for image guidance during catheter placement. Image stored on PACS. Fluoroscopy time: 121 seconds. Total dose: 7.4 mGy Implants/grafts: Temporary central venous triple lumen hemodialysis catheter Contrast: None. Estimated blood loss: Less than 2 cc. Specimens: None Blood products administered: None. Complications: None. Condition at procedure completion: Stable. Disposition: PACU. CONSENT: The procedure, risks, benefits and alternatives were discussed with the patient. Questions were entered. A written informed consent was obtained. A "time out" was performed per protocol prior to the procedure. Clinical discussion: Focused sonographic evaluation of the neck demonstrated a patent and compressible internal jugular vein. A safe approach was determined. TECHNIQUE: The patient was placed in a supine position on the fluoroscopy table. The patient's neck and chest were prepped and draped with sterile technique. All elements of maximum sterile barrier technique were utilized. The overlying skin was anesthetized with 1% lidocaine. Utilizing direct ultrasound guidance, a 21-gauge needle was advanced into the internal jugular vein. A 0.018 inch wire was advanced centrally under fluoroscopic guidance. An access sheath was advanced over the wire to secure the venous access. The wire was upsized to a 0.035 inch wire. Utilizing fluoroscopic guidance, the wire was advanced into the right atrium and then into the inferior vena cava for stability. Serial dilations were performed over the wire. The peel-away sheath was inserted over the wire. The catheter was placed into the peel-away sheath. The peel-away sheath was removed. The catheter tip was positioned within the right atrium utilizing fluoroscopic guidance. The catheter demonstrated appropriate function with aspiration and flush of sterile saline. The lumens were flushed with sterile saline. The catheter was secured to the skin with 3-0 Ethilon suture. Sterile dressings were applied. The patient tolerated the procedure well. There were no immediate complications. The patient was transferred to the postprocedure area in stable unchanged condition for further monitoring. IMPRESSION: Successful placement of a left internal jugular temporary central venous catheter utilizing ultrasound and fluoroscopic guidance. 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 . COMPARISON: 01/01/2018 TECHNIQUE: Multiple longitudinal and transverse real time sonographic images of the kidneys and urinary bladder are obtained. Colostomy bag limits detail. FINDINGS: KIDNEY: The right kidney measures 11.2 x 3.8 x 4.7 cm. The renal cortical thickness measures 1.2 cm. The left kidney measures 10.3 x 4.4 x 4.9 cm. The renal cortical thickness measures 1.3 cm. The kidneys are normal in size, shape, contour, and position. The corticomedullary differentiation is maintained. There is no hydronephrosis. There is no nephrolithiasis. There are no abnormal perinephric collections. Right renal cyst measures 1.2 x 1.2 x 0.9 cm. BLADDER: Colostomy bag limits evaluation. AORTA AND IVC: The visualized portions appear unremarkable. The proximal common iliac arteries are obscured by bowel gas. ASCITES: No ascites noted. IMPRESSION: 1. No acute abnormality. SL: [id number] 01/21/2018 - - Read by: Barrington Forde MD Dictated Date/time: 01/22/18 12:23 Electronically Signed by: Barrington Forde MD 01/22/18 12:26 FINAL REPORT [facility] Chest/Abdomen/Pelvis wo IV contrast CT Chest/Abdomen/Pelvis wo IV contrast CT Patient Name: JOSÉ MIGUEL MCGINNIS : 1950 Age: 67 years, Female MR: [id number] Study: Chest/Abdomen/Pelvis wo IV contrast CT 01/21/2018 7:58 [employer]ATE [employer]ER Examination: CT chest, abdomen, and pelvis without contrast. Indication: Shortness of breath. Abdominal pain. Clinical information: - SOB, abd pain, N/V. Comparison: CT abdomen and pelvis 01/01/2018 Technique: Chest, abdomen, and pelvis were scanned utilizing a multidetector helical scanner from the lung apex through the level of the pubic symphysis. No intravenous contrast was administered. Coronal and sagittal reconstructions were submitted for interpretation. Protocol: Chest, abdomen, and pelvis without contrast. IV contrast: None. Oral contrast: None Complications: None. Radiation dose: Total exam DLP: 1038.2 mGy-cm CT imaging performed at this location utilizes radiation dose optimization techniques which include one or more of the following: -Automated exposure control -Adjustment of the mA and/or kV according to patient size -Use of iterative reconstruction technique Findings: Chest Lines/tubes: None. Heart: No cardiomegaly. No pericardial effusion. Vessels: Atherosclerotic calcifications of the thoracic aorta and coronary arteries. Limited evaluation. Mediastinum: No mediastinal or hilar mass or lymphadenopathy. Normal thyroid. Lungs: Small bulla is present in the left upper lobe. Minimal scarring is present in the left upper lobe, series 2 image 15. Bilateral lower lobe atelectasis. No parenchymal mass. No focal consolidation. Pleura: No pleural effusion. No pneumothorax. Soft tissues: Normal. No axillary mass or lymphadenopathy. Bones: No acute osseous abnormality. Degenerative changes of the thoracic spine. Hemangiomas of the T8 and T12 vertebral bodies. Abdomen and pelvis Lines/tubes: None. Large amount of fluid is present anterior to the anterior abdominal wall. The fluid is collecting in the defect in the portions of the abdominal wall. A loop of small bowel is noted to approach the anterior abdominal wall with connection visualized between the bowel lumen and the fluid collection anterior to the abdominal wall, series 2 image 109. Left midabdomen ileostomy is present. Liver: Normal parenchyma. No focal mass. No hepatomegaly. Biliary: Cholecystectomy. No intrahepatic duct dilation. Normal common bile duct. Spleen: No focal mass. No splenomegaly. Pancreas: No focal mass. Normal pancreatic duct. No peripancreatic inflammatory changes. Adrenal glands: No adrenal nodules. Kidneys: Stable hypodensity in the interpolar region of the right kidney that is too small to characterize. No perinephric soft tissue inflammatory changes. Collecting system: No obstructing calculi. No hydronephrosis. Bladder: Normal urinary bladder. Reproductive organs: Hysterectomy. Stomach: Normal gastric distention. No bowel wall thickening. Small bowel: See above. No bowel wall thickening. No air-fluid levels. No pneumoperitoneum. Colon: Postoperative changes of sigmoid colon resection with patent anastomosis, series 602 image 57. No appendix is visualized. A moderate amount of retained feces limits intraluminal evaluation of the colon. Peritoneum/retroperitoneum: No ascites. No drainable fluid collection. Lymph nodes: No lymphadenopathy. Soft tissues: No focal abnormality. The fascia of the abdominal wall is intact. Vessels: Aortoiliac and great vessel atherosclerotic calcifications. Limited evaluation. Bones: No acute osseous abnormality. Degenerative changes of the lumbar spine. Hemangioma of the L5 vertebral body. IMPRESSION: 1. Fluid anterior to the anterior abdominal wall with a loop of bowel in continuity with the fluid collection, likely represents a enterocutaneous fistula. No intra-abdominal fluid collection. 2. No acute abnormality of the chest. 3. Postoperative changes of sigmoid colon resection with primary anastomosis and left mid abdomen ileostomy. No evidence of perforation or obstruction. 4. Hemangiomas of the T8, T12, and L5 vertebral bodies. SL: [id number] 01/21/2018 - - Read by: Nick Szymanski MD Dictated Date/time: 01/21/18 08:33 Electronically Signed by: Nick Szymanski MD 01/21/18 09:05 FINAL REPORT [facility] Chest 1view DX Chest 1view DX CHEST RADIOGRAPH SINGLE VIEW INDICATION: Shortness of breath, vomiting COMPARISON: Chest radiograph 08/24/2015 IMPRESSION: No consolidation or other acute intrathoracic abnormalities are visualized. SL:[id number] 01/21/2018 - - Read by: Casa Lorenzo MD Dictated Date/time: 01/21/18 06:44 Electronically Signed by: Casa Lorenzo MD 01/21/18 06:45 FINAL REPORT [facility] CVC Replacement VR CVC Replacement VR Patient Name: JOSÉ MIGUEL MCGINNIS : 1950 Age: 67 years Female MR: [id number] Study: CVC Replacement VR 01/03/2018 3:03 PM [employer]ATE [employer]ASS INST[employer]ER Indication: Malfunctioning catheter. Comparison: None. Preoperative diagnosis: Malfunctioning catheter. Postoperative diagnosis: Malfunctioning catheter. PROCEDURE: Fluoroscopically guided exchange of a left internal jugular temporary central venous catheter.. Pain control: Subcutaneous 1% lidocaine for local anesthesia. Fluoroscopy: Utilized for image guidance during catheter placement. Image stored on PACS. Fluoroscopy time: 30 seconds. Total dose: 3 mGy Implants/grafts: Temporary central venous triple lumen catheter Contrast: None. Estimated blood loss: Less than 2 cc. Specimens: None Blood products administered: None. Complications: None. Condition at procedure completion: Stable. Disposition: PACU. CONSENT: The procedure, risks, benefits and alternatives were discussed with the patient. Questions were entered. A written informed consent was obtained. A "time out" was performed per protocol prior to the procedure. Clinical discussion: Focused sonographic evaluation of the neck demonstrated a patent and compressible internal jugular vein. A safe approach was determined. TECHNIQUE: The patient was placed in a supine position on the fluoroscopy table. Materials Buyer film was obtained which demonstrated a left internal jugular temporary central venous catheter with the tip projecting over the expected region of the superior vena cava. The existing catheter and surrounding skin were prepped and draped in the usual sterile fashion. All elements of maximal sterile barrier technique were utilized. The overlying skin was anesthetized with 1% lidocaine. Focused evaluation of the catheter demonstrated an inability to aspirate from any of the catheter ports. A 0.035 inch wire was advanced through the catheter. The old catheter was removed. A new temporary central venous catheter was advanced over the wire. The catheter tip was positioned within the right atrium. The wire was removed. The catheter ports demonstrated proper function with aspiration and flush of sterile saline. The catheter ports were flushed with sterile saline. The catheter was secured to the skin with 3-0 Ethilon suture. A sterile dressing was applied. The patient tolerated the procedure well. There were no immediate complications. The patient was transferred to the postprocedure area in stable unchanged condition for further monitoring. IMPRESSION: Successful placement of a left internal jugular temporary central venous hemodialysis catheter utilizing ultrasound and fluoroscopic guidance. SL: [id number] 01/03/2018 - - Read by: Nick Szymanski MD Dictated Date/time: 01/06/18 14:40 Electronically Signed by: Nick Szymanski MD 01/06/18 15:23 FINAL REPORT [facility] Retroperitoneal Complete US Retroperitoneal Complete US PROCEDURE: RENAL ULTRASOUND Clinical Indication: Renal insufficiency. Comparison: None TECHNIQUE: Sonographic evaluation of the kidneys and urinary bladder was performed. FINDINGS: KIDNEYS: The right kidney measures 11.5 cm in length. Normal contour and parenchymal echogenicity. There are a few small right renal cysts measuring up to 1.4 cm in diameter. There is no hydronephrosis, nephrolithiasis, mass lesion or perinephric collection. The left kidney measures 9.3 cm in length. Normal contour and parenchymal echogenicity. There is no hydronephrosis, nephrolithiasis, mass lesion or perinephric collection. BLADDER: Not visualized. VASCULATURE: The visualized aorta, common iliac arteries and IVC are unremarkable. IMPRESSION: There are a few small right renal cysts. Otherwise normal exam. WR1-M 01/01/2018 - - Read by: Marcio Barroso MD Dictated Date/time: 01/01/18 13:58 Electronically Signed by: Marcio Barroso MD 01/01/18 14:00 FINAL REPORT [facility] Abdomen/Pelvis wo IV contrast CT Abdomen/Pelvis wo IV contrast CT PROCEDURE: CT ABDOMEN AND PELVIS WITHOUT CONTRAST Clinical Indication: Fistula postoperatively . Comparison: No relevant priors available. TECHNIQUE: Helical imaging was performed diaphragm through the symphysis with multiplanar reconstructions. IV CONTRAST: None. GI CONTRAST: Dilute solution containing [address] imaging performed at this location utilizes radiation dose optimization techniques which include one or more of the following: -Automated exposure control -Adjustment of the mA and/or kV according to patient size -Use of iterative reconstruction technique CT Radiation Dose DLP 421 mGy-cm FINDINGS: This examination is limited for the evaluation of solid organs and vascular structures due to lack of intravenous contrast. LOWER CHEST: The lung bases are clear. LIVER: Normal. GALLBLADDER: Cholecystectomy. SPLEEN: Normal. PANCREAS: Normal. ADRENALS: Normal. KIDNEYS: Small subcentimeter hypoattenuating structure midportion right kidney indeterminate on this noncontrast exam. BOWEL: Ostomy site present left lower quadrant connected to small bowel. Rectum appears normal. A portion of the sigmoid colon remains. There is a small bowel fistula leaking oral contrast into the midline abdominal wound. This is evident on axial images 89 through 93 series 3 and sagittal image 72 series 5B. The fistula is quite short and very small in caliber, less than 2 mm in diameter. PERITONEUM: No free air or fluid collections. RETROPERITONEUM: No adenopathy. The aorta is normal. PELVIS: Mild haziness in the fat near midline most likely postoperative in nature. Urinary bladder normal. MUSCULOSKELETAL: The skeleton is intact. IMPRESSION: 1. Short small caliber small bowel fistula draining into the midline abdominal wound. 2. Indeterminate subcentimeter hypoattenuating right renal abnormality. Ultrasound may provide additional information. END REPORT SL: WR1-M 01/01/2018 - - Read by: Marcio Barroso MD Dictated Date/time: 01/01/18 12:41 Electronically Signed by: Marcio Barroso MD 01/01/18 12:49 FINAL REPORT [facility] Chest 2 views DX Chest 2 views DX EXAMINATION: Chest, 2 view, frontal and lateral HISTORY: M05.9 Rheumatoid arthritis with rheumatoid factor, unspecified; FINDINGS: Frontal and lateral views of the chest are submitted for interpretation without comparison. The cardiomediastinal silhouette is within normal limits. There is atherosclerotic calcification of the aorta. There are no pleural effusions or pneumothorax. The lungs are clear without focal pneumonic consolidation or pulmonary edema. Cholecystectomy clips are noted. IMPRESSION: 1. No radiographic evidence of acute cardiopulmonary disease. 2. Atherosclerotic aorta 08/24/2015 - - Read by: Luis Joe MD Dictated Date/time: 08/24/15 14:44 Electronically Signed by: Luis Joe MD 08/24/15 14:45 FINAL REPORT [facility] Small bowel series DX Small bowel series DX Exam: Small bowel x-ray series Reason for Exam: D64.9 Anemia, unspecified Comparison Exam: None Discussion: On table runner view, there are no dilated loops of bowel or abnormal air-fluid level patterns. Patient is status post cholecystectomy. Right lower quadrant ileostomy is noted. Patient indicates that she is status post partial resection of the large bowel secondary to diverticulitis. The patient was able to ingest barium without incident. After approximately 150 minutes, oral contrast material is seen within the ascending colon. The distribution of small bowel is unremarkable. The mucosal pattern of the small bowel is also unremarkable. There are no fixed intraluminal filling defects. No obstructing or constricting lesions. Fluoro time 54 seconds. Impression: 1. Unremarkable small bowel x-ray series with ileostomy within the right lower quadrant. 04/13/2015 - - Read by: Socrates Callejas MD Dictated Date/time: 04/13/15 11:49 Electronically Signed by: Socrates Callejas MD 04/13/15 11:52 FINAL REPORT [facility] Vital Signs Vital Sign Value Date Comments Source Temperature Oral (F) 98.1 F 03/05/2018 [facility] Heart Rate 95 03/05/2018 [facility] Systolic (mm Hg) 107 03/05/2018 [facility] Diastolic (mm Hg) 57 03/05/2018 [facility] Temperature Oral (F) 98.0 F 03/05/2018 [facility] Systolic (mm Hg) 129 03/05/2018 [facility] Diastolic (mm Hg) 82 03/05/2018 [facility] Heart Rate 102 03/05/2018 [facility] Systolic (mm Hg) 122 03/05/2018 [facility] Diastolic (mm Hg) 78 03/05/2018 [facility] Respitory Rate 16 03/05/2018 [facility] Heart Rate 97 03/05/2018 [facility] Temperature Oral (F) 98.0 F 03/05/2018 [facility] Respitory Rate 16 03/05/2018 [facility] Respitory Rate 16 03/05/2018 [facility] Height 121.92 cm 02/26/2018 [facility] Weight 53.4 02/26/2018 [facility] BMI Calculated 35.92 02/26/2018 [facility] Weight 62.727 02/25/2018 [facility] BMI Calculated 25.29 02/25/2018 [facility] Height 157.48 cm 02/25/2018 [facility] Encounters Location Location Details Encounter Type Encounter Number Reason For Visit Attending Provider ADM Date DC Date Status Source [facility] [place] [facility] [id number] Jarrell Gaytan 04/13/2015 04/14/2015 O[facility] Rojas [facility] [place] [facility] [id number] Thomas Perry 08/24/2015 08/25/2015 OSMAN Rojas [facility] Inpatient [id number] Joshua Healy 02/25/2018 03/06/2018 [facility] Procedures Procedure Code Date Perfomer Comments Source Colectomy [id number] [facility] Hemorrhoidectomy [id number] [facility] Knee joint operation [id number] [facility] Ostomy care management [id number] [facility] Wrist repair [id number] [facility]
--- OUTSIDE RECORDS SUMMARY | 2018-06-13 19:21 | XMS REPORT ---
[facility] Address Unknown Phone Unavailable Care Team Providers Care Natural Fabricator Name Role Phone Ariel GREEN Unavailable Unavailable Rohit ISBELL Unavailable Unavailable Payers Payer Name Policy Type Policy Number Effective Date Expiration Date Problems This patient has no known problems. Allergies, Adverse Reactions, Alerts Allergy Name Allergy Type Status Severity Reaction(s) Onset Date Inactive Date Treating Clinician Comments ibuprofen DA Active MO 2018-05-07 00:00:00 ibuprofen DA Active MO 2018-03-20 00:00:00 ibuprofen DA Active MO 2016-06-11 00:00:00 Medications This patient has no known medications. Results Test Description Test Time Test Comments Text Results Atomic Results Result Comments CHEST SINGLE (PORTABLE) 2018-06-13 16:40:00 [place] [address] Patient Name: JOSÉ MIGUEL MCGINNIS MR #: [id number] : 1950 Age/Sex: 67/F Req #: [id number] Adm Physician: Ordered by: MARY GRACE GREEN MD Report #: [id number] Location: ER Room/Bed: Procedure: [id number] DX/CHEST SINGLE (PORTABLE) Exam Date: 06/13/18 Exam Time: 1625 REPORT STATUS: Signed EXAMINATION: CHEST SINGLE (PORTABLE) INDICA TION: Abdominal pain, nausea, vomiting. COMPARISON: None FINDINGS: TUBES and LINES: None. LUNGS: Lungs are well inflated. Lungs are clear. There is no evidence of pneumonia or pulmonary edema. PLEURA: No pleural effusion or pneumothorax. HEART AND MEDIASTINUM: The cardiomediastinal silhouette is unremarkable. There are atherosclerotic calcifications within the aorta. BONES AND SOFT TISSUES: No acute osseous abnormality. UPPER ABDOMEN: No free air under the diaphragm. IMPRESSION: No acute radiographic abnormality. Signed by: Dr. Sumaya Carmen MD on 06/13/2018 4:43 PM Dictated By: SUMAYA CARMEN MD 164 Transcribed By: VALERIE on 06/13/181642 COPY TO: MARY GRACE GREEN MD GLUBED 2018-06-04 15:26:00 GLUBED (test code=GLUBED) 180 mg/dL 74-106 Performed by certified glazing machine operator at [facility] - XR CHEST 1 [id number] 14:25:00 FAX: Joshua Healy MD [phone] [place]: St: ADM Name: JOSÉ MIGUEL [facility] : 08/31/18 49 Age/S: 67/F [address] [facility] Unit #: [id number] Loc: V.2083 [place] [address] Phys: Elmer Harman MD Acct: [id number] Dis Date: Status: ADM IN PHONE #: [phone] Exam Date: 06/04/2018 1419 FAX #: [phone] Reason: CENTRAL LINE REMOVAL EXAMS: CPT CODE: [id number] XR CHEST 1 V [id number] REASON FOR EXAM: CENTRAL LINE REMOVAL EXAM ORDER DATE: 06/04/2018 1:58 PM Ordering MEvelyn.: Elmer Harman MD PROCEDURE: - XR CHEST 1 V COMPARISON: 05/23/2018 FINDINGS: Portable AP frontal view of the chest obtained at 2:49 PM shows mild patchy opacity of the right base. There is no evidence of effusion. The heart size is minimally enlarged. Pulmonary vasculatures are unremarkable. IMPRESSION: St atus post removal of left IJ tunneled central line Electronically Si gned by Reggie Hunter on 06/04/2018 at 9148 Reported and signed by: Reza Hunter M.D. CC: Joshua Healy MD Technologist: RT LILA(R) Trnscrd Date/Time/By: 06/04/2018 (4120) : By: ColetteL Orig Print D/T: S: 06/04/2018 (1185) PAGE 1 Signed Report [id number] 13:00:00 * Test Item Value Reference Range Comments GLUBED (test code=GLUBED) 150 mg/dL 74-106 Performed by certified glazing machine operator at [facility] LIPID PROFILE (CORONARY RISK)2018-06-04 11:09:00* Test Item Value Reference Range Comments TRIGLYCERIDES (test code=TRIG) 160 mg/dL 20-150 CHOLESTEROL (test code=CHOL) 94 mg/dL 0-200 CHOLESTEROL/HDL RATIO (test code=CHOLHDL) 4.0 RATIO 0-4.9 RISK ASSOCIATED WITH CHOL/HDL RATIOS: Risk Male Female1/2 AVERAGE 3.43 3.27AVERAGE 4.97 4.442X AVERAGE 9.55 7.053X AVERAGE 23.39 11.04 REFERENCE VALUE IS RELATED TO RISK LEVELS ASRECOMMENDED BY THE [facility]. HEART, LUNG, AND BLOOD INST. HDL CHOLESTEROL (test code=HDL) 20 mg/dL 40-60 LIPOPROTEIN LDL (test code=LDL) 57 mg/dL 100-129 Reference Interval: mg/dL mmol/L Optimal <100 <2.6Near/above optimal 100-129 2.6- 3.3Borderline High 130-159 3.4-4.1High 160-189 4.1-4.9Very High >=190 >=4.9=========This LDL result is a direct measurement.========= BASIC METABOLIC [id number] 06:53:00* Test Item Value Reference Range Comments SODIUM (test code=NA) 138 mmol/L 136-145 POTASSIUM (test code=K) 3.4 mmol/L 3.5-5.1 CHLORIDE (test code=CL) 103.0 mmol/L 98-107 CARBON DIOXIDE (test code=CO2) 28.0 mmol/L 21-32 ANION GAP (test code=GAP) 10.4 10-20 GLUCOSE (test code=GLU) 94 mg/dL 74-106 BLOOD UREA NITROGEN (test code=BUN) 27 mg/dL 7-18 RESULT VERIFIED BY REPEAT ANALYSIS GLOMERULAR FILTRATION RATE (test code=GFR) 45 mL/min >=60 Estimated GFR by using Modified MDRD formula.Chronic kidney disease is defined as either kidney damageor GFR <60 mL/min/1.73 m2 for >3 months. CREATININE (test code=CREAT) 1.20 mg/dL 0.55-1.02 Note change in reference range due to change in reagent. BUN/CREATININE RATIO (test code=BUN/CREA) 22.5 10-20 CALCIUM (test code=CA) 8.9 mg/dL 8.5-10.1 [id number] 03:57:00* Test Item Value Reference Range Comments GLUBED (test code=GLUBED) 84 mg/dL 74-106 Performed by certified glazing machine operator at [facility] [id number] 21:06:00* Test Item Value Reference Range Comments GLUBED (test code=GLUBED) 164 mg/dL 74-106 Performed by certified glazing machine operator at [facility] [id number] 15:48:00* Test Item Value Reference Range Comments GLUBED (test code=GLUBED) 151 mg/dL 74-106 Performed by certified glazing machine operator at [facility] [id number] 10:40:00* Test Item Value Reference Range Comments GLUBED (test code=GLUBED) 169 mg/dL 74-106 Performed by certified glazing machine operator at [facility] BASIC METABOLIC [id number] 06:56:00* Test Item Value Reference Range Comments SODIUM (test code=NA) 135 mmol/L 136-145 POTASSIUM (test code=K) 3.8 mmol/L 3.5-5.1 CHLORIDE (test code=CL) 97.0 mmol/L 98-107 CARBON DIOXIDE (test code=CO2) 32.0 mmol/L 21-32 ANION GAP (test code=GAP) 9.8 10-20 GLUCOSE (test code=GLU) 105 mg/dL 74-106 BLOOD UREA NITROGEN (test code=BUN) 38 mg/dL 7-18 GLOMERULAR FILTRATION RATE (test code=GFR) 30 mL/min >=60 Estimated GFR by using Modified MDRD formula.Chronic kidney disease is defined as either kidney damageor GFR <60 mL/min/1.73 m2 for >3 months. CREATININE (test code=CREAT) 1.70 mg/dL 0.55-1.02 Note change in reference range due to change in reagent. BUN/CREATININE RATIO (test code=BUN/CREA) 22.4 10-20 CALCIUM (test code=CA) 9.3 mg/dL 8.5-10.1 BASIC METABOLIC [id number] 06:52:00* Test Item Value Reference Range Comments SODIUM (test code=NA) 135 mmol/L 136-145 POTASSIUM (test code=K) 3.8 mmol/L 3.5-5.1 CHLORIDE (test code=CL) 97.0 mmol/L 98-107 CARBON DIOXIDE (test code=CO2) mmol/L 21-32 ANION GAP (test code=GAP) 10-20 GLUCOSE (test code=GLU) mg/dL 74-106 BLOOD UREA NITROGEN (test code=BUN) mg/dL 7-18 GLOMERULAR FILTRATION RATE (test code=GFR) mL/min >=60 CREATININE (test code=CREAT) mg/dL 0.55-1.02 BUN/CREATININE RATIO (test code=BUN/CREA) 10-20 CALCIUM (test code=CA) mg/dL 8.5-10.1 [id number] 05:01:00* Test Item Value Reference Range Comments GLUBED (test code=GLUBED) 104 mg/dL 74-106 Performed by certified glazing machine operator at [facility] [id number] 20:48:00* Test Item Value Reference Range Comments GLUBED (test code=GLUBED) 125 mg/dL 74-106 Performed by certified glazing machine operator at [facility] [id number] 16:16:00* Test Item Value Reference Range Comments GLUBED (test code=GLUBED) 160 mg/dL 74-106 Performed by certified glazing machine operator at [facility] [id number] 12:33:00* Test Item Value Reference Range Comments GLUBED (test code=GLUBED) 184 mg/dL 74-106 Performed by certified glazing machine operator at [facility] [id number] 12:32:00* Test Item Value Reference Range Comments GLUBED (test code=GLUBED) 203 mg/dL 74-106 Performed by certified glazing machine operator at [facility] [id number] 10:53:00* Test Item Value Reference Range Comments GLUBED (test code=GLUBED) 194 mg/dL 74-106 Performed by certified glazing machine operator at [facility] [id number] 06:21:00* Test Item Value Reference Range Comments GLUBED (test code=GLUBED) 175 mg/dL 74-106 Performed by certified glazing machine operator at [facility] COMPREHENSIVE METABOLIC [id number] 05:29:00* Test Item Value Reference Range Comments SODIUM (test code=NA) 134 mmol/L 136-145 POTASSIUM (test code=K) 4.1 mmol/L 3.5-5.1 CHLORIDE (test code=CL) 94.0 mmol/L 98-107 CARBON DIOXIDE (test code=CO2) 33.0 mmol/L 21-32 ANION GAP (test code=GAP) 11.1 10-20 GLUCOSE (test code=GLU) 129 mg/dL 74-106 BLOOD UREA NITROGEN (test code=BUN) 39 mg/dL 7-18 GLOMERULAR FILTRATION RATE (test code=GFR) 25 mL/min >=60 Estimated GFR by using Modified MDRD formula.Chronic kidney disease is defined as either kidney damageor GFR <60 mL/min/1.73 m2 for >3 months. CREATININE (test code=CREAT) 2.00 mg/dL 0.55-1.02 Note change in reference range due to change in reagent. BUN/CREATININE RATIO (test code=BUN/CREA) 19.5 10-20 TOTAL PROTEIN (test code=PROT) 8.0 gram/dL 6.4-8.2 ALBUMIN (test code=ALB) 2.3 g/dL 3.4-5.0 GLOBULIN (test code=GLOB) 5.7 gram/dL 2.7-4.2 ALBUMIN/GLOBULIN RATIO (test code=A/G) 0.4 0.75-1.50 CALCIUM (test code=CA) 9.3 mg/dL 8.5-10.1 BILIRUBIN TOTAL (test code=BILT) 0.70 mg/dL 0.0-1.0 SGOT/AST (test code=AST) 21 IUnit/L 15-37 SGPT/ALT (test code=ALT) 12 IUnit/L 12-78 ALKALINE PHOSPHATASE TOTAL (test code=ALKP) 88 IUnit/L 45-117 Note change in reference range due to change in reagent. COMPREHENSIVE METABOLIC [id number] 05:16:00* Test Item Value Reference Range Comments SODIUM (test code=NA) 134 mmol/L 136-145 POTASSIUM (test code=K) 4.1 mmol/L 3.5-5.1 CHLORIDE (test code=CL) 94.0 mmol/L 98-107 CARBON DIOXIDE (test code=CO2) mmol/L 21-32 ANION GAP (test code=GAP) 10-20 GLUCOSE (test code=GLU) mg/dL 74-106 BLOOD UREA NITROGEN (test code=BUN) mg/dL 7-18 GLOMERULAR FILTRATION RATE (test code=GFR) mL/min >=60 CREATININE (test code=CREAT) mg/dL 0.55-1.02 BUN/CREATININE RATIO (test code=BUN/CREA) 10-20 TOTAL PROTEIN (test code=PROT) gram/dL 6.4-8.2 ALBUMIN (test code=ALB) g/dL 3.4-5.0 GLOBULIN (test code=GLOB) gram/dL 2.7-4.2 ALBUMIN/GLOBULIN RATIO (test code=A/G) 0.75-1.50 CALCIUM (test code=CA) mg/dL 8.5-10.1 BILIRUBIN TOTAL (test code=BILT) mg/dL 0.0-1.0 SGOT/AST (test code=AST) IUnit/L 15-37 SGPT/ALT (test code=ALT) IUnit/L 12-78 ALKALINE PHOSPHATASE TOTAL (test code=ALKP) IUnit/L 45-117 CBC W/AUTO [id number] 04:56:00* Test Item Value Reference Range Comments WHITE BLOOD CELL (test code=WBC) 9.5 K/mm3 4.5-12.5 RED BLOOD CELL (test code=RBC) 3.45 mill/mm3 3.7-5.2 HEMOGLOBIN (test code=HGB) 9.8 gram/dL 11.5-15.5 HEMATOCRIT (test code=HCT) 31.0 % 36.0-46.0 MEAN CELL VOLUME (test code=MCV) 89.9 fL 80-98 MEAN CELL HGB (test code=MCH) 28.4 picogram 27.0-33.0 MEAN CELL HGB CONCETRATION (test code=MCHC) 31.6 gram/dL 33.0-36.0 RED CELL DISTRIBUTION WIDTH (test code=RDW) 15.7 % 11.6-16.2 RED CELL DISTRIBUTION WIDTH SD (test code=RDW-SD) 51.4 fL 37.0-51.0 PLATELET COUNT (test code=PLT) 477 K/mm3 150-450 MEAN PLATELET VOLUME (test code=MPV) 9.6 fL 6.7-11.0 NEUTROPHIL % (test code=NT%) 73.3 % 39.0-69.0 IMMATURE GRANULOCYTE % (test code=IG%) 0.6 % 0.0-5.0 LYMPHOCYTE % (test code=LY%) 16.1 % 25.0-55.0 MONOCYTE % (test code=MO%) 8.3 % 0.0-10.0 EOSINOPHIL % (test code=EO%) 1.5 % 0.0-5.0 BASOPHIL % (test code=BA%) 0.2 % 0.0-1.0 NUCLEATED RBC % (test code=NRBC%) 0.0 % 0-0 NEUTROPHIL # (test code=NT#) 6.99 K/mm3 1.8-7.7 IMMATURE GRANULOCYTE # (test code=IG#) 0.06 x10 3/uL 0-0.03 LYMPHOCYTE # (test code=LY#) 1.54 K/mm3 1.0-5.0 MONOCYTE # (test code=MO#) 0.79 K/mm3 0-0.8 EOSINOPHIL # (test code=EO#) 0.14 K/mm3 0.0-0.5 BASOPHIL # (test code=BA#) 0.02 K/mm3 0.0-0.2 NUCLEATED RBC # (test code=NRBC#) 0.00 K/mm3 0.0-0.1 [id number] 21:03:00* Test Item Value Reference Range Comments GLUBED (test code=GLUBED) 100 mg/dL 74-106 Performed by certified glazing machine operator at [facility] [id number] 16:53:00* Test Item Value Reference Range Comments GLUBED (test code=GLUBED) 207 mg/dL 74-106 Performed by certified glazing machine operator at [facility] [id number] 11:39:00* Test Item Value Reference Range Comments GLUBED (test code=GLUBED) 145 mg/dL 74-106 Performed by certified glazing machine operator at [facility] [id number] 06:40:00* Test Item Value Reference Range Comments GLUBED (test code=GLUBED) 89 mg/dL 74-106 Performed by certified glazing machine operator at [facility] CBC W/AUTO [id number] 06:39:00* Test Item Value Reference Range Comments WHITE BLOOD CELL (test code=WBC) 8.0 K/mm3 4.5-12.5 RED BLOOD CELL (test code=RBC) 3.57 mill/mm3 3.7-5.2 HEMOGLOBIN (test code=HGB) 9.7 gram/dL 11.5-15.5 HEMATOCRIT (test code=HCT) 32.4 % 36.0-46.0 MEAN CELL VOLUME (test code=MCV) 90.8 fL 80-98 MEAN CELL HGB (test code=MCH) 27.2 picogram 27.0-33.0 MEAN CELL HGB CONCETRATION (test code=MCHC) 29.9 gram/dL 33.0-36.0 RED CELL DISTRIBUTION WIDTH (test code=RDW) 15.9 % 11.6-16.2 RED CELL DISTRIBUTION WIDTH SD (test code=RDW-SD) 51.9 fL 37.0-51.0 PLATELET COUNT (test code=PLT) 493 K/mm3 150-450 MEAN PLATELET VOLUME (test code=MPV) 9.8 fL 6.7-11.0 NEUTROPHIL % (test code=NT%) 66.7 % 39.0-69.0 IMMATURE GRANULOCYTE % (test code=IG%) 0.6 % 0.0-5.0 LYMPHOCYTE % (test code=LY%) 20.1 % 25.0-55.0 MONOCYTE % (test code=MO%) 9.5 % 0.0-10.0 EOSINOPHIL % (test code=EO%) 2.8 % 0.0-5.0 BASOPHIL % (test code=BA%) 0.3 % 0.0-1.0 NUCLEATED RBC % (test code=NRBC%) 0.0 % 0-0 NEUTROPHIL # (test code=NT#) 5.32 K/mm3 1.8-7.7 IMMATURE GRANULOCYTE # (test code=IG#) 0.05 x10 3/uL 0-0.03 LYMPHOCYTE # (test code=LY#) 1.60 K/mm3 1.0-5.0 MONOCYTE # (test code=MO#) 0.76 K/mm3 0-0.8 EOSINOPHIL # (test code=EO#) 0.22 K/mm3 0.0-0.5 BASOPHIL # (test code=BA#) 0.02 K/mm3 0.0-0.2 NUCLEATED RBC # (test code=NRBC#) 0.00 K/mm3 0.0-0.1 MANUAL DIFF REQUIRED (test code=MDIFF) NO, ONLY SCAN NEEDED DIFFERENTIAL [id number] 06:39:00* Test Item Value Reference Range Comments STAIN ACCEPTABILITY (test code=STN ACCEPTABLE) STAIN ACCEPTABLE ANISOCYTOSIS (test code=ANISO) 1+ MACROCYTOSIS (test code=MACR) 1+ PLATELET ESTIMATE (test code=PLTEST) ADEQUATE PLATELET MORPHOLOGY (test code=PLTMORPH) NORMAL COMPREHENSIVE METABOLIC [id number] 06:31:00* Test Item Value Reference Range Comments SODIUM (test code=NA) 136 mmol/L 136-145 POTASSIUM (test code=K) 4.3 mmol/L 3.5-5.1 CHLORIDE (test code=CL) 96.0 mmol/L 98-107 CARBON DIOXIDE (test code=CO2) 34.0 mmol/L 21-32 ANION GAP (test code=GAP) 10.3 10-20 GLUCOSE (test code=GLU) 84 mg/dL 74-106 BLOOD UREA NITROGEN (test code=BUN) 39 mg/dL 7-18 GLOMERULAR FILTRATION RATE (test code=GFR) 28 mL/min >=60 Estimated GFR by using Modified MDRD formula.Chronic kidney disease is defined as either kidney damageor GFR <60 mL/min/1.73 m2 for >3 months. CREATININE (test code=CREAT) 1.80 mg/dL 0.55-1.02 Note change in reference range due to change in reagent. BUN/CREATININE RATIO (test code=BUN/CREA) 21.7 10-20 TOTAL PROTEIN (test code=PROT) 7.8 gram/dL 6.4-8.2 ALBUMIN (test code=ALB) 2.2 g/dL 3.4-5.0 GLOBULIN (test code=GLOB) 5.6 gram/dL 2.7-4.2 ALBUMIN/GLOBULIN RATIO (test code=A/G) 0.4 0.75-1.50 CALCIUM (test code=CA) 8.9 mg/dL 8.5-10.1 BILIRUBIN TOTAL (test code=BILT) 0.60 mg/dL 0.0-1.0 SGOT/AST (test code=AST) 24 IUnit/L 15-37 SGPT/ALT (test code=ALT) 15 IUnit/L 12-78 ALKALINE PHOSPHATASE TOTAL (test code=ALKP) 89 IUnit/L 45-117 Note change in reference range due to change in reagent. COMPREHENSIVE METABOLIC [id number] 06:25:00* Test Item Value Reference Range Comments SODIUM (test code=NA) 136 mmol/L 136-145 POTASSIUM (test code=K) 4.3 mmol/L 3.5-5.1 CHLORIDE (test code=CL) 96.0 mmol/L 98-107 CARBON DIOXIDE (test code=CO2) mmol/L 21-32 ANION GAP (test code=GAP) 10-20 GLUCOSE (test code=GLU) mg/dL 74-106 BLOOD UREA NITROGEN (test code=BUN) mg/dL 7-18 GLOMERULAR FILTRATION RATE (test code=GFR) mL/min >=60 CREATININE (test code=CREAT) mg/dL 0.55-1.02 BUN/CREATININE RATIO (test code=BUN/CREA) 10-20 TOTAL PROTEIN (test code=PROT) gram/dL 6.4-8.2 ALBUMIN (test code=ALB) g/dL 3.4-5.0 GLOBULIN (test code=GLOB) gram/dL 2.7-4.2 ALBUMIN/GLOBULIN RATIO (test code=A/G) 0.75-1.50 CALCIUM (test code=CA) mg/dL 8.5-10.1 BILIRUBIN TOTAL (test code=BILT) mg/dL 0.0-1.0 SGOT/AST (test code=AST) IUnit/L 15-37 SGPT/ALT (test code=ALT) IUnit/L 12-78 ALKALINE PHOSPHATASE TOTAL (test code=ALKP) IUnit/L 45-117 CBC W/AUTO [id number] 06:14:00* Test Item Value Reference Range Comments WHITE BLOOD CELL (test code=WBC) 8.0 K/mm3 4.5-12.5 RED BLOOD CELL (test code=RBC) 3.57 mill/mm3 3.7-5.2 HEMOGLOBIN (test code=HGB) 9.7 gram/dL 11.5-15.5 HEMATOCRIT (test code=HCT) 32.4 % 36.0-46.0 MEAN CELL VOLUME (test code=MCV) 90.8 fL 80-98 MEAN CELL HGB (test code=MCH) 27.2 picogram 27.0-33.0 MEAN CELL HGB CONCETRATION (test code=MCHC) 29.9 gram/dL 33.0-36.0 RED CELL DISTRIBUTION WIDTH (test code=RDW) 15.9 % 11.6-16.2 RED CELL DISTRIBUTION WIDTH SD (test code=RDW-SD) 51.9 fL 37.0-51.0 PLATELET COUNT (test code=PLT) 493 K/mm3 150-450 MEAN PLATELET VOLUME (test code=MPV) 9.8 fL 6.7-11.0 NEUTROPHIL % (test code=NT%) 66.7 % 39.0-69.0 IMMATURE GRANULOCYTE % (test code=IG%) 0.6 % 0.0-5.0 LYMPHOCYTE % (test code=LY%) 20.1 % 25.0-55.0 MONOCYTE % (test code=MO%) 9.5 % 0.0-10.0 EOSINOPHIL % (test code=EO%) 2.8 % 0.0-5.0 BASOPHIL % (test code=BA%) 0.3 % 0.0-1.0 NUCLEATED RBC % (test code=NRBC%) 0.0 % 0-0 NEUTROPHIL # (test code=NT#) 5.32 K/mm3 1.8-7.7 IMMATURE GRANULOCYTE # (test code=IG#) 0.05 x10 3/uL 0-0.03 LYMPHOCYTE # (test code=LY#) 1.60 K/mm3 1.0-5.0 MONOCYTE # (test code=MO#) 0.76 K/mm3 0-0.8 EOSINOPHIL # (test code=EO#) 0.22 K/mm3 0.0-0.5 BASOPHIL # (test code=BA#) 0.02 K/mm3 0.0-0.2 NUCLEATED RBC # (test code=NRBC#) 0.00 K/mm3 0.0-0.1 MANUAL DIFF REQUIRED (test code=MDIFF) NO, ONLY SCAN NEEDED DIFFERENTIAL [id number] 06:14:00* Test Item Value Reference Range Comments STAIN ACCEPTABILITY (test code=STN ACCEPTABLE) CABOT RINGS (test code=CAB) MORPHOLOGY COMMENT (test code=MOC) PLATELET ESTIMATE (test code=PLTEST) PLATELET MORPHOLOGY (test code=PLTMORPH) CBC W/AUTO [id number] 06:14:00* Test Item Value Reference Range Comments WHITE BLOOD CELL (test code=WBC) 8.0 K/mm3 4.5-12.5 RED BLOOD CELL (test code=RBC) 3.57 mill/mm3 3.7-5.2 HEMOGLOBIN (test code=HGB) 9.7 gram/dL 11.5-15.5 HEMATOCRIT (test code=HCT) 32.4 % 36.0-46.0 MEAN CELL VOLUME (test code=MCV) 90.8 fL 80-98 MEAN CELL HGB (test code=MCH) 27.2 picogram 27.0-33.0 MEAN CELL HGB CONCETRATION (test code=MCHC) 29.9 gram/dL 33.0-36.0 RED CELL DISTRIBUTION WIDTH (test code=RDW) 15.9 % 11.6-16.2 RED CELL DISTRIBUTION WIDTH SD (test code=RDW-SD) 51.9 fL 37.0-51.0 PLATELET COUNT (test code=PLT) 493 K/mm3 150-450 MEAN PLATELET VOLUME (test code=MPV) 9.8 fL 6.7-11.0 NEUTROPHIL % (test code=NT%) 66.7 % 39.0-69.0 IMMATURE GRANULOCYTE % (test code=IG%) 0.6 % 0.0-5.0 LYMPHOCYTE % (test code=LY%) 20.1 % 25.0-55.0 MONOCYTE % (test code=MO%) 9.5 % 0.0-10.0 EOSINOPHIL % (test code=EO%) 2.8 % 0.0-5.0 BASOPHIL % (test code=BA%) 0.3 % 0.0-1.0 NUCLEATED RBC % (test code=NRBC%) 0.0 % 0-0 NEUTROPHIL # (test code=NT#) 5.32 K/mm3 1.8-7.7 IMMATURE GRANULOCYTE # (test code=IG#) 0.05 x10 3/uL 0-0.03 LYMPHOCYTE # (test code=LY#) 1.60 K/mm3 1.0-5.0 MONOCYTE # (test code=MO#) 0.76 K/mm3 0-0.8 EOSINOPHIL # (test code=EO#) 0.22 K/mm3 0.0-0.5 BASOPHIL # (test code=BA#) 0.02 K/mm3 0.0-0.2 NUCLEATED RBC # (test code=NRBC#) 0.00 K/mm3 0.0-0.1 MANUAL DIFF REQUIRED (test code=MDIFF) NO, ONLY SCAN NEEDED DIFFERENTIAL [id number] 06:14:00* Test Item Value Reference Range Comments STAIN ACCEPTABILITY (test code=STN ACCEPTABLE) CABOT RINGS (test code=CAB) MORPHOLOGY COMMENT (test code=MOC) PLATELET ESTIMATE (test code=PLTEST) PLATELET MORPHOLOGY (test code=PLTMORPH) CBC W/AUTO [id number] 06:14:00* Test Item Value Reference Range Comments WHITE BLOOD CELL (test code=WBC) 8.0 K/mm3 4.5-12.5 RED BLOOD CELL (test code=RBC) 3.57 mill/mm3 3.7-5.2 HEMOGLOBIN (test code=HGB) 9.7 gram/dL 11.5-15.5 HEMATOCRIT (test code=HCT) 32.4 % 36.0-46.0 MEAN CELL VOLUME (test code=MCV) 90.8 fL 80-98 MEAN CELL HGB (test code=MCH) 27.2 picogram 27.0-33.0 MEAN CELL HGB CONCETRATION (test code=MCHC) 29.9 gram/dL 33.0-36.0 RED CELL DISTRIBUTION WIDTH (test code=RDW) 15.9 % 11.6-16.2 RED CELL DISTRIBUTION WIDTH SD (test code=RDW-SD) 51.9 fL 37.0-51.0 PLATELET COUNT (test code=PLT) 493 K/mm3 150-450 MEAN PLATELET VOLUME (test code=MPV) 9.8 fL 6.7-11.0 NEUTROPHIL % (test code=NT%) 66.7 % 39.0-69.0 IMMATURE GRANULOCYTE % (test code=IG%) 0.6 % 0.0-5.0 LYMPHOCYTE % (test code=LY%) 20.1 % 25.0-55.0 MONOCYTE % (test code=MO%) 9.5 % 0.0-10.0 EOSINOPHIL % (test code=EO%) 2.8 % 0.0-5.0 BASOPHIL % (test code=BA%) 0.3 % 0.0-1.0 NUCLEATED RBC % (test code=NRBC%) 0.0 % 0-0 NEUTROPHIL # (test code=NT#) 5.32 K/mm3 1.8-7.7 IMMATURE GRANULOCYTE # (test code=IG#) 0.05 x10 3/uL 0-0.03 LYMPHOCYTE # (test code=LY#) 1.60 K/mm3 1.0-5.0 MONOCYTE # (test code=MO#) 0.76 K/mm3 0-0.8 EOSINOPHIL # (test code=EO#) 0.22 K/mm3 0.0-0.5 BASOPHIL # (test code=BA#) 0.02 K/mm3 0.0-0.2 NUCLEATED RBC # (test code=NRBC#) 0.00 K/mm3 0.0-0.1 MANUAL DIFF REQUIRED (test code=MDIFF) NO, ONLY SCAN NEEDED DIFFERENTIAL [id number] 06:14:00* Test Item Value Reference Range Comments STAIN ACCEPTABILITY (test code=STN ACCEPTABLE) MORPHOLOGY COMMENT (test code=MOC) PLATELET ESTIMATE (test code=PLTEST) PLATELET MORPHOLOGY (test code=PLTMORPH) CBC W/AUTO [id number] 06:13:00* Test Item Value Reference Range Comments WHITE BLOOD CELL (test code=WBC) 8.0 K/mm3 4.5-12.5 RED BLOOD CELL (test code=RBC) 3.57 mill/mm3 3.7-5.2 HEMOGLOBIN (test code=HGB) 9.7 gram/dL 11.5-15.5 HEMATOCRIT (test code=HCT) 32.4 % 36.0-46.0 MEAN CELL VOLUME (test code=MCV) 90.8 fL 80-98 MEAN CELL HGB (test code=MCH) 27.2 picogram 27.0-33.0 MEAN CELL HGB CONCETRATION (test code=MCHC) 29.9 gram/dL 33.0-36.0 RED CELL DISTRIBUTION WIDTH (test code=RDW) 15.9 % 11.6-16.2 RED CELL DISTRIBUTION WIDTH SD (test code=RDW-SD) 51.9 fL 37.0-51.0 PLATELET COUNT (test code=PLT) 493 K/mm3 150-450 MEAN PLATELET VOLUME (test code=MPV) 9.8 fL 6.7-11.0 NEUTROPHIL % (test code=NT%) 66.7 % 39.0-69.0 IMMATURE GRANULOCYTE % (test code=IG%) 0.6 % 0.0-5.0 LYMPHOCYTE % (test code=LY%) 20.1 % 25.0-55.0 MONOCYTE % (test code=MO%) 9.5 % 0.0-10.0 EOSINOPHIL % (test code=EO%) 2.8 % 0.0-5.0 BASOPHIL % (test code=BA%) 0.3 % 0.0-1.0 NUCLEATED RBC % (test code=NRBC%) 0.0 % 0-0 NEUTROPHIL # (test code=NT#) 5.32 K/mm3 1.8-7.7 IMMATURE GRANULOCYTE # (test code=IG#) 0.05 x10 3/uL 0-0.03 LYMPHOCYTE # (test code=LY#) 1.60 K/mm3 1.0-5.0 MONOCYTE # (test code=MO#) 0.76 K/mm3 0-0.8 EOSINOPHIL # (test code=EO#) 0.22 K/mm3 0.0-0.5 BASOPHIL # (test code=BA#) 0.02 K/mm3 0.0-0.2 NUCLEATED RBC # (test code=NRBC#) 0.00 K/mm3 0.0-0.1 MANUAL DIFF REQUIRED (test code=MDIFF) NO, ONLY SCAN NEEDED DIFFERENTIAL [id number] 06:13:00* Test Item Value Reference Range Comments STAIN ACCEPTABILITY (test code=STN ACCEPTABLE) CABOT RINGS (test code=CAB) MORPHOLOGY COMMENT (test code=MOC) PLATELET ESTIMATE (test code=PLTEST) PLATELET MORPHOLOGY (test code=PLTMORPH) [id number] 00:35:00* Test Item Value Reference Range Comments GLUBED (test code=GLUBED) 139 mg/dL 74-106 Performed by certified glazing machine operator at [facility] [id number] 16:28:00* Test Item Value Reference Range Comments GLUBED (test code=GLUBED) 156 mg/dL 74-106 Performed by certified glazing machine operator at [facility] [id number] 12:49:00* Test Item Value Reference Range Comments GLUBED (test code=GLUBED) 155 mg/dL 74-106 Performed by certified glazing machine operator at [facility] COMPREHENSIVE METABOLIC [id number] 08:34:00* Test Item Value Reference Range Comments SODIUM (test code=NA) 135 mmol/L 136-145 POTASSIUM (test code=K) 4.4 mmol/L 3.5-5.1 CHLORIDE (test code=CL) 96.0 mmol/L 98-107 CARBON DIOXIDE (test code=CO2) 34.0 mmol/L 21-32 ANION GAP (test code=GAP) 9.4 10-20 GLUCOSE (test code=GLU) 94 mg/dL 74-106 BLOOD UREA NITROGEN (test code=BUN) 37 mg/dL 7-18 GLOMERULAR FILTRATION RATE (test code=GFR) 35 mL/min >=60 Estimated GFR by using Modified MDRD formula.Chronic kidney disease is defined as either kidney damageor GFR <60 mL/min/1.73 m2 for >3 months. CREATININE (test code=CREAT) 1.50 mg/dL 0.55-1.02 Note change in reference range due to change in reagent. BUN/CREATININE RATIO (test code=BUN/CREA) 24.7 10-20 TOTAL PROTEIN (test code=PROT) 7.4 gram/dL 6.4-8.2 ALBUMIN (test code=ALB) 2.2 g/dL 3.4-5.0 GLOBULIN (test code=GLOB) 5.2 gram/dL 2.7-4.2 ALBUMIN/GLOBULIN RATIO (test code=A/G) 0.4 0.75-1.50 CALCIUM (test code=CA) 8.9 mg/dL 8.5-10.1 BILIRUBIN TOTAL (test code=BILT) 0.50 mg/dL 0.0-1.0 SGOT/AST (test code=AST) 27 IUnit/L 15-37 SGPT/ALT (test code=ALT) 15 IUnit/L 12-78 ALKALINE PHOSPHATASE TOTAL (test code=ALKP) 94 IUnit/L 45-117 Note change in reference range due to change in reagent. PER OLAMIDE ALEXANDER LINE DRAW V.LAB.KP2 05/31/18 0725COMPREHENSIVE METABOLIC PANEL 2018-05-31 08:15:00* Test Item Value Reference Range Comments SODIUM (test code=NA) 135 mmol/L 136-145 POTASSIUM (test code=K) 4.4 mmol/L 3.5-5.1 CHLORIDE (test code=CL) 96.0 mmol/L 98-107 CARBON DIOXIDE (test code=CO2) mmol/L 21-32 ANION GAP (test code=GAP) 10-20 GLUCOSE (test code=GLU) mg/dL 74-106 BLOOD UREA NITROGEN (test code=BUN) mg/dL 7-18 GLOMERULAR FILTRATION RATE (test code=GFR) mL/min >=60 CREATININE (test code=CREAT) mg/dL 0.55-1.02 BUN/CREATININE RATIO (test code=BUN/CREA) 10-20 TOTAL PROTEIN (test code=PROT) gram/dL 6.4-8.2 ALBUMIN (test code=ALB) g/dL 3.4-5.0 GLOBULIN (test code=GLOB) gram/dL 2.7-4.2 ALBUMIN/GLOBULIN RATIO (test code=A/G) 0.75-1.50 CALCIUM (test code=CA) mg/dL 8.5-10.1 BILIRUBIN TOTAL (test code=BILT) mg/dL 0.0-1.0 SGOT/AST (test code=AST) IUnit/L 15-37 SGPT/ALT (test code=ALT) IUnit/L 12-78 ALKALINE PHOSPHATASE TOTAL (test code=ALKP) IUnit/L 45-117 PER RN BENJAMIN LINE DRAW V.LAB.KP2 05/31/18 0725CBC W/AUTO [id number] 07:56:00* Test Item Value Reference Range Comments WHITE BLOOD CELL (test code=WBC) 9.4 K/mm3 4.5-12.5 RED BLOOD CELL (test code=RBC) 3.56 mill/mm3 3.7-5.2 HEMOGLOBIN (test code=HGB) 9.9 gram/dL 11.5-15.5 HEMATOCRIT (test code=HCT) 32.2 % 36.0-46.0 MEAN CELL VOLUME (test code=MCV) 90.4 fL 80-98 MEAN CELL HGB (test code=MCH) 27.8 picogram 27.0-33.0 MEAN CELL HGB CONCETRATION (test code=MCHC) 30.7 gram/dL 33.0-36.0 RED CELL DISTRIBUTION WIDTH (test code=RDW) 15.9 % 11.6-16.2 RED CELL DISTRIBUTION WIDTH SD (test code=RDW-SD) 52.5 fL 37.0-51.0 PLATELET COUNT (test code=PLT) 469 K/mm3 150-450 RESULT VERIFIED BY REPEAT ANALYSIS MEAN PLATELET VOLUME (test code=MPV) 10.0 fL 6.7-11.0 NEUTROPHIL % (test code=NT%) 79.7 % 39.0-69.0 IMMATURE GRANULOCYTE % (test code=IG%) 0.5 % 0.0-5.0 LYMPHOCYTE % (test code=LY%) 11.2 % 25.0-55.0 MONOCYTE % (test code=MO%) 6.5 % 0.0-10.0 EOSINOPHIL % (test code=EO%) 1.9 % 0.0-5.0 BASOPHIL % (test code=BA%) 0.2 % 0.0-1.0 NUCLEATED RBC % (test code=NRBC%) 0.0 % 0-0 NEUTROPHIL # (test code=NT#) 7.47 K/mm3 1.8-7.7 IMMATURE GRANULOCYTE # (test code=IG#) 0.05 x10 3/uL 0-0.03 LYMPHOCYTE # (test code=LY#) 1.05 K/mm3 1.0-5.0 MONOCYTE # (test code=MO#) 0.61 K/mm3 0-0.8 EOSINOPHIL # (test code=EO#) 0.18 K/mm3 0.0-0.5 BASOPHIL # (test code=BA#) 0.02 K/mm3 0.0-0.2 NUCLEATED RBC # (test code=NRBC#) 0.00 K/mm3 0.0-0.1 MANUAL DIFF REQUIRED (test code=MDIFF) NO PER RN DRAW LINE DRAW V.LAB.KP2 05/31/18 [id number] 05:30:00* Test Item Value Reference Range Comments GLUBED (test code=GLUBED) 95 mg/dL 74-106 Performed by certified glazing machine operator at [facility] [id number] 20:28:00* Test Item Value Reference Range Comments GLUBED (test code=GLUBED) 135 mg/dL 74-106 Performed by certified glazing machine operator at [facility] [id number] 18:14:00* Test Item Value Reference Range Comments GLUBED (test code=GLUBED) 131 mg/dL 74-106 Performed by certified glazing machine operator at [facility] [id number] 16:43:00* Test Item Value Reference Range Comments GLUBED (test code=GLUBED) 53 mg/dL 74-106 Performed by certified glazing machine operator at [facility] [id number] 14:34:00* Test Item Value Reference Range Comments PHOSPHORUS (test code=PHOS) 4.2 mg/dL 2.5-4.9 05/30/18 1253CHASITY NOTIFIEDV.LAB. [id number] 14:34:00 * Test Item Value Reference Range Comments MAGNESIUM (test code=MAG) 1.9 mg/dL 1.8-2.4 05/30/18 1253CHASITY NOTIFIEDV.LAB. [id number] 14:31:00 * Test Item Value Reference Range Comments PHOSPHORUS (test code=PHOS) mg/dL 2.5-4.9 05/30/18 1253CHASITY NOTIFIEDV.LAB. [id number] 14:31:00 * Test Item Value Reference Range Comments MAGNESIUM (test code=MAG) 1.9 mg/dL 1.8-2.4 05/30/18 1253CHASITY NOTIFIEDV.LAB. [id number] 05:00:00* Test Item Value Reference Range Comments GLUBED (test code=GLUBED) 80 mg/dL 74-106 Performed by certified glazing machine operator at [facility] [id number] 21:20:00* Test Item Value Reference Range Comments GLUBED (test code=GLUBED) 148 mg/dL 74-106 Performed by certified glazing machine operator at [facility] [id number] 16:53:00* Test Item Value Reference Range Comments GLUBED (test code=GLUBED) 161 mg/dL 74-106 Performed by certified glazing machine operator at [facility] [id number] 12:43:00* Test Item Value Reference Range Comments GLUBED (test code=GLUBED) 127 mg/dL 74-106 Performed by certified glazing machine operator at [facility] COMPREHENSIVE METABOLIC [id number] 09:59:00* Test Item Value Reference Range Comments SODIUM (test code=NA) 132 mmol/L 136-145 POTASSIUM (test code=K) 4.9 mmol/L 3.5-5.1 CHLORIDE (test code=CL) 93.0 mmol/L 98-107 CARBON DIOXIDE (test code=CO2) 34.0 mmol/L 21-32 ANION GAP (test code=GAP) 9.9 10-20 GLUCOSE (test code=GLU) 133 mg/dL 74-106 BLOOD UREA NITROGEN (test code=BUN) 53 mg/dL 7-18 GLOMERULAR FILTRATION RATE (test code=GFR) 30 mL/min >=60 Estimated GFR by using Modified MDRD formula.Chronic kidney disease is defined as either kidney damageor GFR <60 mL/min/1.73 m2 for >3 months. CREATININE (test code=CREAT) 1.70 mg/dL 0.55-1.02 Note change in reference range due to change in reagent. BUN/CREATININE RATIO (test code=BUN/CREA) 31.2 10-20 TOTAL PROTEIN (test code=PROT) 6.8 gram/dL 6.4-8.2 ALBUMIN (test code=ALB) 2.0 g/dL 3.4-5.0 GLOBULIN (test code=GLOB) 4.8 gram/dL 2.7-4.2 ALBUMIN/GLOBULIN RATIO (test code=A/G) 0.4 0.75-1.50 CALCIUM (test code=CA) 8.3 mg/dL 8.5-10.1 BILIRUBIN TOTAL (test code=BILT) 0.50 mg/dL 0.0-1.0 SGOT/AST (test code=AST) 32 IUnit/L 15-37 SGPT/ALT (test code=ALT) 13 IUnit/L 12-78 ALKALINE PHOSPHATASE TOTAL (test code=ALKP) 90 IUnit/L 45-117 Note change in reference range due to change in reagent. PATIENT HAS A LINE RN CRYSTAL WILL COLLECT V.LAB.EP05/29/18 0835PHOSPHORUS 2018-05-29 09:59:00* Test Item Value Reference Range Comments PHOSPHORUS (test code=PHOS) 4.0 mg/dL 2.5-4.9 PATIENT HAS A LINE RN CRYSTAL WILL COLLECT V.LAB.EP05/29/18 0835MAGNESIUM 2018-05-29 09:59:00* Test Item Value Reference Range Comments MAGNESIUM (test code=MAG) 1.8 mg/dL 1.8-2.4 PATIENT HAS A LINE RN CRYSTAL WILL COLLECT V.LAB.EP05/29/18 0835CBC W/MANUAL [id number] 09:53:00* Test Item Value Reference Range Comments WHITE BLOOD CELL (test code=WBC) 7.5 K/mm3 4.5-12.5 RED BLOOD CELL (test code=RBC) 3.39 mill/mm3 3.7-5.2 HEMOGLOBIN (test code=HGB) 9.4 gram/dL 11.5-15.5 HEMATOCRIT (test code=HCT) 30.4 % 36.0-46.0 MEAN CELL VOLUME (test code=MCV) 89.7 fL 80-98 MEAN CELL HGB (test code=MCH) 27.7 picogram 27.0-33.0 MEAN CELL HGB CONCETRATION (test code=MCHC) 30.9 gram/dL 33.0-36.0 RED CELL DISTRIBUTION WIDTH (test code=RDW) 16.5 % 11.6-16.2 RED CELL DISTRIBUTION WIDTH SD (test code=RDW-SD) 54.2 fL 37.0-51.0 PLATELET COUNT (test code=PLT) 373 K/mm3 150-450 MEAN PLATELET VOLUME (test code=MPV) 10.6 fL 6.7-11.0 IMMATURE GRANULOCYTE % (test code=IG%) 0.4 % 0.0-5.0 NUCLEATED RBC % (test code=NRBC%) 0.0 % 0-0 NEUTROPHIL # (test code=NT#) 5.44 K/mm3 1.8-7.7 IMMATURE GRANULOCYTE # (test code=IG#) 0.03 x10 3/uL 0-0.03 LYMPHOCYTE # (test code=LY#) 1.47 K/mm3 1.0-5.0 MONOCYTE # (test code=MO#) 0.36 K/mm3 0-0.8 EOSINOPHIL # (test code=EO#) 0.19 K/mm3 0.0-0.5 BASOPHIL # (test code=BA#) 0.02 K/mm3 0.0-0.2 NUCLEATED RBC # (test code=NRBC#) 0.00 K/mm3 0.0-0.1 MANUAL DIFF REQUIRED (test code=MDIFF) YES STAIN ACCEPTABILITY (test code=STN ACCEPTABLE) STAIN ACCEPTABLE TOTAL CELLS COUNTED (test code=TCC) 115 #CELLS SEGMENTED NEUTROPHILS (test code=SEG) 83.5 % 39-69 BAND NEUTROPHIL (test code=BAND) 0 % 0-10 LYMPHOCYTE (test code=LYMPH) 12.2 % 25-55 REACTIVE LYMPH (test code=RELYMPH) 0 % MONOCYTE (test code=MON) 3.5 % 0-10 EOSINOPHIL (test code=EOS) 0 % 0.0-5.0 BASOPHIL (test code=BASO) 0.8 % 0-1.0 METAMYELOCYTE (test code=META) 0 % 0-0 MYELOCYTE (test code=MYELO) 0 % 0.0-0.0 PROMYELOCYTE (test code=PROM) 0 % 0-0 ANISOCYTOSIS (test code=ANISO) 1+ ROSELINE CELLS (test code=ROSELINE) 1+ NONE PLATELET ESTIMATE (test code=PLTEST) ADEQUATE PLATELET MORPHOLOGY (test code=PLTMORPH) NORMAL IMMATURE FORMS (test code=IMMAT) 0 % PATIENT HAS A LINE RN CRYSTAL WILL COLLECT V.LAB.EP04/ 0835CBC W/MANUAL [id number] 09:07:00* Test Item Value Reference Range Comments WHITE BLOOD CELL (test code=WBC) 7.5 K/mm3 4.5-12.5 RED BLOOD CELL (test code=RBC) 3.39 mill/mm3 3.7-5.2 HEMOGLOBIN (test code=HGB) 9.4 gram/dL 11.5-15.5 HEMATOCRIT (test code=HCT) 30.4 % 36.0-46.0 MEAN CELL VOLUME (test code=MCV) 89.7 fL 80-98 MEAN CELL HGB (test code=MCH) 27.7 picogram 27.0-33.0 MEAN CELL HGB CONCETRATION (test code=MCHC) 30.9 gram/dL 33.0-36.0 RED CELL DISTRIBUTION WIDTH (test code=RDW) 16.5 % 11.6-16.2 RED CELL DISTRIBUTION WIDTH SD (test code=RDW-SD) 54.2 fL 37.0-51.0 PLATELET COUNT (test code=PLT) 373 K/mm3 150-450 MEAN PLATELET VOLUME (test code=MPV) 10.6 fL 6.7-11.0 IMMATURE GRANULOCYTE % (test code=IG%) 0.4 % 0.0-5.0 NUCLEATED RBC % (test code=NRBC%) 0.0 % 0-0 NEUTROPHIL # (test code=NT#) 5.44 K/mm3 1.8-7.7 IMMATURE GRANULOCYTE # (test code=IG#) 0.03 x10 3/uL 0-0.03 LYMPHOCYTE # (test code=LY#) 1.47 K/mm3 1.0-5.0 MONOCYTE # (test code=MO#) 0.36 K/mm3 0-0.8 EOSINOPHIL # (test code=EO#) 0.19 K/mm3 0.0-0.5 BASOPHIL # (test code=BA#) 0.02 K/mm3 0.0-0.2 NUCLEATED RBC # (test code=NRBC#) 0.00 K/mm3 0.0-0.1 MANUAL DIFF REQUIRED (test code=MDIFF) YES STAIN ACCEPTABILITY (test code=STN ACCEPTABLE) TOTAL CELLS COUNTED (test code=TCC) #CELLS SEGMENTED NEUTROPHILS (test code=SEG) % 39-69 LYMPHOCYTE (test code=LYMPH) % 25-55 MONOCYTE (test code=MON) % 0-10 MORPHOLOGY COMMENT (test code=MOC) PLATELET ESTIMATE (test code=PLTEST) PLATELET MORPHOLOGY (test code=PLTMORPH) PATIENT HAS A LINE RN CRYSTAL WILL COLLECT V.LAB.EP05/29/18 0835CBC W/MANUAL [id number] 09:05:00* Test Item Value Reference Range Comments WHITE BLOOD CELL (test code=WBC) 7.5 K/mm3 4.5-12.5 RED BLOOD CELL (test code=RBC) 3.39 mill/mm3 3.7-5.2 HEMOGLOBIN (test code=HGB) 9.4 gram/dL 11.5-15.5 HEMATOCRIT (test code=HCT) 30.4 % 36.0-46.0 MEAN CELL VOLUME (test code=MCV) 89.7 fL 80-98 MEAN CELL HGB (test code=MCH) 27.7 picogram 27.0-33.0 MEAN CELL HGB CONCETRATION (test code=MCHC) 30.9 gram/dL 33.0-36.0 RED CELL DISTRIBUTION WIDTH (test code=RDW) 16.5 % 11.6-16.2 RED CELL DISTRIBUTION WIDTH SD (test code=RDW-SD) 54.2 fL 37.0-51.0 PLATELET COUNT (test code=PLT) 373 K/mm3 150-450 MEAN PLATELET VOLUME (test code=MPV) 10.6 fL 6.7-11.0 IMMATURE GRANULOCYTE % (test code=IG%) 0.4 % 0.0-5.0 NUCLEATED RBC % (test code=NRBC%) 0.0 % 0-0 NEUTROPHIL # (test code=NT#) 5.44 K/mm3 1.8-7.7 IMMATURE GRANULOCYTE # (test code=IG#) 0.03 x10 3/uL 0-0.03 LYMPHOCYTE # (test code=LY#) 1.47 K/mm3 1.0-5.0 MONOCYTE # (test code=MO#) 0.36 K/mm3 0-0.8 EOSINOPHIL # (test code=EO#) 0.19 K/mm3 0.0-0.5 BASOPHIL # (test code=BA#) 0.02 K/mm3 0.0-0.2 NUCLEATED RBC # (test code=NRBC#) 0.00 K/mm3 0.0-0.1 MANUAL DIFF REQUIRED (test code=MDIFF) YES STAIN ACCEPTABILITY (test code=STN ACCEPTABLE) TOTAL CELLS COUNTED (test code=TCC) #CELLS SEGMENTED NEUTROPHILS (test code=SEG) % 39-69 LYMPHOCYTE (test code=LYMPH) % 25-55 MONOCYTE (test code=MON) % 0-10 EOSINOPHIL (test code=EOS) % 0.0-5.0 CABOT RINGS (test code=CAB) MORPHOLOGY COMMENT (test code=MOC) PLATELET ESTIMATE (test code=PLTEST) PLATELET MORPHOLOGY (test code=PLTMORPH) PATIENT HAS A LINE RN CRYSTAL WILL COLLECT V.LAB.EP05/29/18 0835CBC W/MANUAL [id number] 09:05:00* Test Item Value Reference Range Comments WHITE BLOOD CELL (test code=WBC) 7.5 K/mm3 4.5-12.5 RED BLOOD CELL (test code=RBC) 3.39 mill/mm3 3.7-5.2 HEMOGLOBIN (test code=HGB) 9.4 gram/dL 11.5-15.5 HEMATOCRIT (test code=HCT) 30.4 % 36.0-46.0 MEAN CELL VOLUME (test code=MCV) 89.7 fL 80-98 MEAN CELL HGB (test code=MCH) 27.7 picogram 27.0-33.0 MEAN CELL HGB CONCETRATION (test code=MCHC) 30.9 gram/dL 33.0-36.0 RED CELL DISTRIBUTION WIDTH (test code=RDW) 16.5 % 11.6-16.2 RED CELL DISTRIBUTION WIDTH SD (test code=RDW-SD) 54.2 fL 37.0-51.0 PLATELET COUNT (test code=PLT) 373 K/mm3 150-450 MEAN PLATELET VOLUME (test code=MPV) 10.6 fL 6.7-11.0 IMMATURE GRANULOCYTE % (test code=IG%) 0.4 % 0.0-5.0 NUCLEATED RBC % (test code=NRBC%) 0.0 % 0-0 NEUTROPHIL # (test code=NT#) 5.44 K/mm3 1.8-7.7 IMMATURE GRANULOCYTE # (test code=IG#) 0.03 x10 3/uL 0-0.03 LYMPHOCYTE # (test code=LY#) 1.47 K/mm3 1.0-5.0 MONOCYTE # (test code=MO#) 0.36 K/mm3 0-0.8 EOSINOPHIL # (test code=EO#) 0.19 K/mm3 0.0-0.5 BASOPHIL # (test code=BA#) 0.02 K/mm3 0.0-0.2 NUCLEATED RBC # (test code=NRBC#) 0.00 K/mm3 0.0-0.1 MANUAL DIFF REQUIRED (test code=MDIFF) YES STAIN ACCEPTABILITY (test code=STN ACCEPTABLE) TOTAL CELLS COUNTED (test code=TCC) #CELLS SEGMENTED NEUTROPHILS (test code=SEG) % 39-69 LYMPHOCYTE (test code=LYMPH) % 25-55 MONOCYTE (test code=MON) % 0-10 EOSINOPHIL (test code=EOS) % 0.0-5.0 CABOT RINGS (test code=CAB) MORPHOLOGY COMMENT (test code=MOC) PLATELET ESTIMATE (test code=PLTEST) PLATELET MORPHOLOGY (test code=PLTMORPH) PATIENT HAS A LINE RN CRYSTAL WILL COLLECT V.LAB.EP05/29/18 0835CBC W/MANUAL [id number] 09:05:00* Test Item Value Reference Range Comments WHITE BLOOD CELL (test code=WBC) 7.5 K/mm3 4.5-12.5 RED BLOOD CELL (test code=RBC) 3.39 mill/mm3 3.7-5.2 HEMOGLOBIN (test code=HGB) 9.4 gram/dL 11.5-15.5 HEMATOCRIT (test code=HCT) 30.4 % 36.0-46.0 MEAN CELL VOLUME (test code=MCV) 89.7 fL 80-98 MEAN CELL HGB (test code=MCH) 27.7 picogram 27.0-33.0 MEAN CELL HGB CONCETRATION (test code=MCHC) 30.9 gram/dL 33.0-36.0 RED CELL DISTRIBUTION WIDTH (test code=RDW) 16.5 % 11.6-16.2 RED CELL DISTRIBUTION WIDTH SD (test code=RDW-SD) 54.2 fL 37.0-51.0 PLATELET COUNT (test code=PLT) 373 K/mm3 150-450 MEAN PLATELET VOLUME (test code=MPV) 10.6 fL 6.7-11.0 IMMATURE GRANULOCYTE % (test code=IG%) 0.4 % 0.0-5.0 NUCLEATED RBC % (test code=NRBC%) 0.0 % 0-0 NEUTROPHIL # (test code=NT#) 5.44 K/mm3 1.8-7.7 IMMATURE GRANULOCYTE # (test code=IG#) 0.03 x10 3/uL 0-0.03 LYMPHOCYTE # (test code=LY#) 1.47 K/mm3 1.0-5.0 MONOCYTE # (test code=MO#) 0.36 K/mm3 0-0.8 EOSINOPHIL # (test code=EO#) 0.19 K/mm3 0.0-0.5 BASOPHIL # (test code=BA#) 0.02 K/mm3 0.0-0.2 NUCLEATED RBC # (test code=NRBC#) 0.00 K/mm3 0.0-0.1 MANUAL DIFF REQUIRED (test code=MDIFF) YES STAIN ACCEPTABILITY (test code=STN ACCEPTABLE) TOTAL CELLS COUNTED (test code=TCC) #CELLS SEGMENTED NEUTROPHILS (test code=SEG) % 39-69 LYMPHOCYTE (test code=LYMPH) % 25-55 MONOCYTE (test code=MON) % 0-10 EOSINOPHIL (test code=EOS) % 0.0-5.0 MORPHOLOGY COMMENT (test code=MOC) PLATELET ESTIMATE (test code=PLTEST) PLATELET MORPHOLOGY (test code=PLTMORPH) PATIENT HAS A LINE RN CRYSTAL WILL COLLECT V.LAB.EP05/29/18 0835CBC W/MANUAL [id number] 09:05:00* Test Item Value Reference Range Comments WHITE BLOOD CELL (test code=WBC) 7.5 K/mm3 4.5-12.5 RED BLOOD CELL (test code=RBC) 3.39 mill/mm3 3.7-5.2 HEMOGLOBIN (test code=HGB) 9.4 gram/dL 11.5-15.5 HEMATOCRIT (test code=HCT) 30.4 % 36.0-46.0 MEAN CELL VOLUME (test code=MCV) 89.7 fL 80-98 MEAN CELL HGB (test code=MCH) 27.7 picogram 27.0-33.0 MEAN CELL HGB CONCETRATION (test code=MCHC) 30.9 gram/dL 33.0-36.0 RED CELL DISTRIBUTION WIDTH (test code=RDW) 16.5 % 11.6-16.2 RED CELL DISTRIBUTION WIDTH SD (test code=RDW-SD) 54.2 fL 37.0-51.0 PLATELET COUNT (test code=PLT) 373 K/mm3 150-450 MEAN PLATELET VOLUME (test code=MPV) 10.6 fL 6.7-11.0 IMMATURE GRANULOCYTE % (test code=IG%) 0.4 % 0.0-5.0 NUCLEATED RBC % (test code=NRBC%) 0.0 % 0-0 NEUTROPHIL # (test code=NT#) 5.44 K/mm3 1.8-7.7 IMMATURE GRANULOCYTE # (test code=IG#) 0.03 x10 3/uL 0-0.03 LYMPHOCYTE # (test code=LY#) 1.47 K/mm3 1.0-5.0 MONOCYTE # (test code=MO#) 0.36 K/mm3 0-0.8 EOSINOPHIL # (test code=EO#) 0.19 K/mm3 0.0-0.5 BASOPHIL # (test code=BA#) 0.02 K/mm3 0.0-0.2 NUCLEATED RBC # (test code=NRBC#) 0.00 K/mm3 0.0-0.1 MANUAL DIFF REQUIRED (test code=MDIFF) YES STAIN ACCEPTABILITY (test code=STN ACCEPTABLE) TOTAL CELLS COUNTED (test code=TCC) #CELLS SEGMENTED NEUTROPHILS (test code=SEG) % 39-69 LYMPHOCYTE (test code=LYMPH) % 25-55 MONOCYTE (test code=MON) % 0-10 EOSINOPHIL (test code=EOS) % 0.0-5.0 CABOT RINGS (test code=CAB) MORPHOLOGY COMMENT (test code=MOC) PLATELET ESTIMATE (test code=PLTEST) PLATELET MORPHOLOGY (test code=PLTMORPH) PATIENT HAS A LINE RN CRYSTAL WILL COLLECT V.LAB.EP05/29/18 [id number] 06:04:00* Test Item Value Reference Range Comments GLUBED (test code=GLUBED) 169 mg/dL 74-106 Performed by certified glazing machine operator at [facility] [id number] 21:34:00* Test Item Value Reference Range Comments GLUBED (test code=GLUBED) 134 mg/dL 74-106 Performed by certified glazing machine operator at [facility] [id number] 17:02:00* Test Item Value Reference Range Comments GLUBED (test code=GLUBED) 122 mg/dL 74-106 Performed by certified glazing machine operator at [facility] CBC W/MANUAL [id number] 13:27:00* Test Item Value Reference Range Comments WHITE BLOOD CELL (test code=WBC) 7.7 K/mm3 4.5-12.5 RED BLOOD CELL (test code=RBC) 3.54 mill/mm3 3.7-5.2 HEMOGLOBIN (test code=HGB) 9.7 gram/dL 11.5-15.5 HEMATOCRIT (test code=HCT) 31.7 % 36.0-46.0 MEAN CELL VOLUME (test code=MCV) 89.5 fL 80-98 MEAN CELL HGB (test code=MCH) 27.4 picogram 27.0-33.0 MEAN CELL HGB CONCETRATION (test code=MCHC) 30.6 gram/dL 33.0-36.0 RED CELL DISTRIBUTION WIDTH (test code=RDW) 16.8 % 11.6-16.2 RED CELL DISTRIBUTION WIDTH SD (test code=RDW-SD) 55.5 fL 37.0-51.0 PLATELET COUNT (test code=PLT) 350 K/mm3 150-450 MEAN PLATELET VOLUME (test code=MPV) 11.0 fL 6.7-11.0 IMMATURE GRANULOCYTE % (test code=IG%) 0.7 % 0.0-5.0 NUCLEATED RBC % (test code=NRBC%) 0.0 % 0-0 NEUTROPHIL # (test code=NT#) 5.71 K/mm3 1.8-7.7 IMMATURE GRANULOCYTE # (test code=IG#) 0.05 x10 3/uL 0-0.03 LYMPHOCYTE # (test code=LY#) 1.42 K/mm3 1.0-5.0 MONOCYTE # (test code=MO#) 0.38 K/mm3 0-0.8 EOSINOPHIL # (test code=EO#) 0.09 K/mm3 0.0-0.5 BASOPHIL # (test code=BA#) 0.02 K/mm3 0.0-0.2 NUCLEATED RBC # (test code=NRBC#) 0.00 K/mm3 0.0-0.1 MANUAL DIFF REQUIRED (test code=MDIFF) YES STAIN ACCEPTABILITY (test code=STN ACCEPTABLE) STAIN ACCEPTABLE TOTAL CELLS COUNTED (test code=TCC) 100 #CELLS SEGMENTED NEUTROPHILS (test code=SEG) 75 % 39-69 LYMPHOCYTE (test code=LYMPH) 13 % 25-55 MONOCYTE (test code=MON) 9 % 0-10 EOSINOPHIL (test code=EOS) 1 % 0.0-5.0 METAMYELOCYTE (test code=META) 2 % 0-0 MORPHOLOGY COMMENT (test code=MOC) NORMAL PLATELET ESTIMATE (test code=PLTEST) ADEQUATE PLATELET MORPHOLOGY (test code=PLTMORPH) NORMAL COMPREHENSIVE METABOLIC [id number] 08:29:00* Test Item Value Reference Range Comments SODIUM (test code=NA) 133 mmol/L 136-145 RESULT VERIFIED BY REPEAT ANALYSIS POTASSIUM (test code=K) 4.8 mmol/L 3.5-5.1 CHLORIDE (test code=CL) 94.0 mmol/L 98-107 CARBON DIOXIDE (test code=CO2) 32.0 mmol/L 21-32 ANION GAP (test code=GAP) 11.8 10-20 GLUCOSE (test code=GLU) 98 mg/dL 74-106 BLOOD UREA NITROGEN (test code=BUN) 51 mg/dL 7-18 RESULT VERIFIED BY REPEAT ANALYSIS GLOMERULAR FILTRATION RATE (test code=GFR) 30 mL/min >=60 Estimated GFR by using Modified MDRD formula.Chronic kidney disease is defined as either kidney damageor GFR <60 mL/min/1.73 m2 for >3 months. CREATININE (test code=CREAT) 1.70 mg/dL 0.55-1.02 Note change in reference range due to change in reagent. BUN/CREATININE RATIO (test code=BUN/CREA) 30.0 10-20 TOTAL PROTEIN (test code=PROT) 6.8 gram/dL 6.4-8.2 ALBUMIN (test code=ALB) 2.1 g/dL 3.4-5.0 GLOBULIN (test code=GLOB) 4.7 gram/dL 2.7-4.2 ALBUMIN/GLOBULIN RATIO (test code=A/G) 0.5 0.75-1.50 CALCIUM (test code=CA) 8.1 mg/dL 8.5-10.1 BILIRUBIN TOTAL (test code=BILT) 0.50 mg/dL 0.0-1.0 SGOT/AST (test code=AST) 24 IUnit/L 15-37 SGPT/ALT (test code=ALT) 10 IUnit/L 12-78 ALKALINE PHOSPHATASE TOTAL (test code=ALKP) 95 IUnit/L 45-117 Note change in reference range due to change in reagent. [id number] 08:29:00* Test Item Value Reference Range Comments PHOSPHORUS (test code=PHOS) 3.4 mg/dL 2.5-4.9 [id number] 08:29:00* Test Item Value Reference Range Comments MAGNESIUM (test code=MAG) 1.4 mg/dL 1.8-2.4 CBC W/MANUAL [id number] 08:07:00* Test Item Value Reference Range Comments WHITE BLOOD CELL (test code=WBC) 7.7 K/mm3 4.5-12.5 RED BLOOD CELL (test code=RBC) 3.54 mill/mm3 3.7-5.2 HEMOGLOBIN (test code=HGB) 9.7 gram/dL 11.5-15.5 HEMATOCRIT (test code=HCT) 31.7 % 36.0-46.0 MEAN CELL VOLUME (test code=MCV) 89.5 fL 80-98 MEAN CELL HGB (test code=MCH) 27.4 picogram 27.0-33.0 MEAN CELL HGB CONCETRATION (test code=MCHC) 30.6 gram/dL 33.0-36.0 RED CELL DISTRIBUTION WIDTH (test code=RDW) 16.8 % 11.6-16.2 RED CELL DISTRIBUTION WIDTH SD (test code=RDW-SD) 55.5 fL 37.0-51.0 PLATELET COUNT (test code=PLT) 350 K/mm3 150-450 MEAN PLATELET VOLUME (test code=MPV) 11.0 fL 6.7-11.0 IMMATURE GRANULOCYTE % (test code=IG%) 0.7 % 0.0-5.0 NUCLEATED RBC % (test code=NRBC%) 0.0 % 0-0 NEUTROPHIL # (test code=NT#) 5.71 K/mm3 1.8-7.7 IMMATURE GRANULOCYTE # (test code=IG#) 0.05 x10 3/uL 0-0.03 LYMPHOCYTE # (test code=LY#) 1.42 K/mm3 1.0-5.0 MONOCYTE # (test code=MO#) 0.38 K/mm3 0-0.8 EOSINOPHIL # (test code=EO#) 0.09 K/mm3 0.0-0.5 BASOPHIL # (test code=BA#) 0.02 K/mm3 0.0-0.2 NUCLEATED RBC # (test code=NRBC#) 0.00 K/mm3 0.0-0.1 MANUAL DIFF REQUIRED (test code=MDIFF) YES STAIN ACCEPTABILITY (test code=STN ACCEPTABLE) TOTAL CELLS COUNTED (test code=TCC) #CELLS SEGMENTED NEUTROPHILS (test code=SEG) % 39-69 LYMPHOCYTE (test code=LYMPH) % 25-55 MONOCYTE (test code=MON) % 0-10 EOSINOPHIL (test code=EOS) % 0.0-5.0 CABOT RINGS (test code=CAB) MORPHOLOGY COMMENT (test code=MOC) PLATELET ESTIMATE (test code=PLTEST) PLATELET MORPHOLOGY (test code=PLTMORPH) CBC W/MANUAL [id number] 08:07:00* Test Item Value Reference Range Comments WHITE BLOOD CELL (test code=WBC) 7.7 K/mm3 4.5-12.5 RED BLOOD CELL (test code=RBC) 3.54 mill/mm3 3.7-5.2 HEMOGLOBIN (test code=HGB) 9.7 gram/dL 11.5-15.5 HEMATOCRIT (test code=HCT) 31.7 % 36.0-46.0 MEAN CELL VOLUME (test code=MCV) 89.5 fL 80-98 MEAN CELL HGB (test code=MCH) 27.4 picogram 27.0-33.0 MEAN CELL HGB CONCETRATION (test code=MCHC) 30.6 gram/dL 33.0-36.0 RED CELL DISTRIBUTION WIDTH (test code=RDW) 16.8 % 11.6-16.2 RED CELL DISTRIBUTION WIDTH SD (test code=RDW-SD) 55.5 fL 37.0-51.0 PLATELET COUNT (test code=PLT) 350 K/mm3 150-450 MEAN PLATELET VOLUME (test code=MPV) 11.0 fL 6.7-11.0 IMMATURE GRANULOCYTE % (test code=IG%) 0.7 % 0.0-5.0 NUCLEATED RBC % (test code=NRBC%) 0.0 % 0-0 NEUTROPHIL # (test code=NT#) 5.71 K/mm3 1.8-7.7 IMMATURE GRANULOCYTE # (test code=IG#) 0.05 x10 3/uL 0-0.03 LYMPHOCYTE # (test code=LY#) 1.42 K/mm3 1.0-5.0 MONOCYTE # (test code=MO#) 0.38 K/mm3 0-0.8 EOSINOPHIL # (test code=EO#) 0.09 K/mm3 0.0-0.5 BASOPHIL # (test code=BA#) 0.02 K/mm3 0.0-0.2 NUCLEATED RBC # (test code=NRBC#) 0.00 K/mm3 0.0-0.1 MANUAL DIFF REQUIRED (test code=MDIFF) YES STAIN ACCEPTABILITY (test code=STN ACCEPTABLE) TOTAL CELLS COUNTED (test code=TCC) #CELLS SEGMENTED NEUTROPHILS (test code=SEG) % 39-69 LYMPHOCYTE (test code=LYMPH) % 25-55 MONOCYTE (test code=MON) % 0-10 EOSINOPHIL (test code=EOS) % 0.0-5.0 CABOT RINGS (test code=CAB) MORPHOLOGY COMMENT (test code=MOC) PLATELET ESTIMATE (test code=PLTEST) PLATELET MORPHOLOGY (test code=PLTMORPH) CBC W/MANUAL [id number] 08:07:00* Test Item Value Reference Range Comments WHITE BLOOD CELL (test code=WBC) 7.7 K/mm3 4.5-12.5 RED BLOOD CELL (test code=RBC) 3.54 mill/mm3 3.7-5.2 HEMOGLOBIN (test code=HGB) 9.7 gram/dL 11.5-15.5 HEMATOCRIT (test code=HCT) 31.7 % 36.0-46.0 MEAN CELL VOLUME (test code=MCV) 89.5 fL 80-98 MEAN CELL HGB (test code=MCH) 27.4 picogram 27.0-33.0 MEAN CELL HGB CONCETRATION (test code=MCHC) 30.6 gram/dL 33.0-36.0 RED CELL DISTRIBUTION WIDTH (test code=RDW) 16.8 % 11.6-16.2 RED CELL DISTRIBUTION WIDTH SD (test code=RDW-SD) 55.5 fL 37.0-51.0 PLATELET COUNT (test code=PLT) 350 K/mm3 150-450 MEAN PLATELET VOLUME (test code=MPV) 11.0 fL 6.7-11.0 IMMATURE GRANULOCYTE % (test code=IG%) 0.7 % 0.0-5.0 NUCLEATED RBC % (test code=NRBC%) 0.0 % 0-0 NEUTROPHIL # (test code=NT#) 5.71 K/mm3 1.8-7.7 IMMATURE GRANULOCYTE # (test code=IG#) 0.05 x10 3/uL 0-0.03 LYMPHOCYTE # (test code=LY#) 1.42 K/mm3 1.0-5.0 MONOCYTE # (test code=MO#) 0.38 K/mm3 0-0.8 EOSINOPHIL # (test code=EO#) 0.09 K/mm3 0.0-0.5 BASOPHIL # (test code=BA#) 0.02 K/mm3 0.0-0.2 NUCLEATED RBC # (test code=NRBC#) 0.00 K/mm3 0.0-0.1 MANUAL DIFF REQUIRED (test code=MDIFF) YES STAIN ACCEPTABILITY (test code=STN ACCEPTABLE) TOTAL CELLS COUNTED (test code=TCC) #CELLS SEGMENTED NEUTROPHILS (test code=SEG) % 39-69 LYMPHOCYTE (test code=LYMPH) % 25-55 MONOCYTE (test code=MON) % 0-10 EOSINOPHIL (test code=EOS) % 0.0-5.0 MORPHOLOGY COMMENT (test code=MOC) PLATELET ESTIMATE (test code=PLTEST) PLATELET MORPHOLOGY (test code=PLTMORPH) CBC W/MANUAL [id number] 08:07:00* Test Item Value Reference Range Comments WHITE BLOOD CELL (test code=WBC) 7.7 K/mm3 4.5-12.5 RED BLOOD CELL (test code=RBC) 3.54 mill/mm3 3.7-5.2 HEMOGLOBIN (test code=HGB) 9.7 gram/dL 11.5-15.5 HEMATOCRIT (test code=HCT) 31.7 % 36.0-46.0 MEAN CELL VOLUME (test code=MCV) 89.5 fL 80-98 MEAN CELL HGB (test code=MCH) 27.4 picogram 27.0-33.0 MEAN CELL HGB CONCETRATION (test code=MCHC) 30.6 gram/dL 33.0-36.0 RED CELL DISTRIBUTION WIDTH (test code=RDW) 16.8 % 11.6-16.2 RED CELL DISTRIBUTION WIDTH SD (test code=RDW-SD) 55.5 fL 37.0-51.0 PLATELET COUNT (test code=PLT) 350 K/mm3 150-450 MEAN PLATELET VOLUME (test code=MPV) 11.0 fL 6.7-11.0 IMMATURE GRANULOCYTE % (test code=IG%) 0.7 % 0.0-5.0 NUCLEATED RBC % (test code=NRBC%) 0.0 % 0-0 NEUTROPHIL # (test code=NT#) 5.71 K/mm3 1.8-7.7 IMMATURE GRANULOCYTE # (test code=IG#) 0.05 x10 3/uL 0-0.03 LYMPHOCYTE # (test code=LY#) 1.42 K/mm3 1.0-5.0 MONOCYTE # (test code=MO#) 0.38 K/mm3 0-0.8 EOSINOPHIL # (test code=EO#) 0.09 K/mm3 0.0-0.5 BASOPHIL # (test code=BA#) 0.02 K/mm3 0.0-0.2 NUCLEATED RBC # (test code=NRBC#) 0.00 K/mm3 0.0-0.1 MANUAL DIFF REQUIRED (test code=MDIFF) YES STAIN ACCEPTABILITY (test code=STN ACCEPTABLE) TOTAL CELLS COUNTED (test code=TCC) #CELLS SEGMENTED NEUTROPHILS (test code=SEG) % 39-69 LYMPHOCYTE (test code=LYMPH) % 25-55 MONOCYTE (test code=MON) % 0-10 MORPHOLOGY COMMENT (test code=MOC) PLATELET ESTIMATE (test code=PLTEST) PLATELET MORPHOLOGY (test code=PLTMORPH) CBC W/MANUAL [id number] 08:07:00* Test Item Value Reference Range Comments WHITE BLOOD CELL (test code=WBC) 7.7 K/mm3 4.5-12.5 RED BLOOD CELL (test code=RBC) 3.54 mill/mm3 3.7-5.2 HEMOGLOBIN (test code=HGB) 9.7 gram/dL 11.5-15.5 HEMATOCRIT (test code=HCT) 31.7 % 36.0-46.0 MEAN CELL VOLUME (test code=MCV) 89.5 fL 80-98 MEAN CELL HGB (test code=MCH) 27.4 picogram 27.0-33.0 MEAN CELL HGB CONCETRATION (test code=MCHC) 30.6 gram/dL 33.0-36.0 RED CELL DISTRIBUTION WIDTH (test code=RDW) 16.8 % 11.6-16.2 RED CELL DISTRIBUTION WIDTH SD (test code=RDW-SD) 55.5 fL 37.0-51.0 PLATELET COUNT (test code=PLT) 350 K/mm3 150-450 MEAN PLATELET VOLUME (test code=MPV) 11.0 fL 6.7-11.0 IMMATURE GRANULOCYTE % (test code=IG%) 0.7 % 0.0-5.0 NUCLEATED RBC % (test code=NRBC%) 0.0 % 0-0 NEUTROPHIL # (test code=NT#) 5.71 K/mm3 1.8-7.7 IMMATURE GRANULOCYTE # (test code=IG#) 0.05 x10 3/uL 0-0.03 LYMPHOCYTE # (test code=LY#) 1.42 K/mm3 1.0-5.0 MONOCYTE # (test code=MO#) 0.38 K/mm3 0-0.8 EOSINOPHIL # (test code=EO#) 0.09 K/mm3 0.0-0.5 BASOPHIL # (test code=BA#) 0.02 K/mm3 0.0-0.2 NUCLEATED RBC # (test code=NRBC#) 0.00 K/mm3 0.0-0.1 MANUAL DIFF REQUIRED (test code=MDIFF) YES STAIN ACCEPTABILITY (test code=STN ACCEPTABLE) TOTAL CELLS COUNTED (test code=TCC) #CELLS SEGMENTED NEUTROPHILS (test code=SEG) % 39-69 LYMPHOCYTE (test code=LYMPH) % 25-55 MONOCYTE (test code=MON) % 0-10 EOSINOPHIL (test code=EOS) % 0.0-5.0 CABOT RINGS (test code=CAB) MORPHOLOGY COMMENT (test code=MOC) PLATELET ESTIMATE (test code=PLTEST) PLATELET MORPHOLOGY (test code=PLTMORPH) [id number] 18:20:00* Test Item Value Reference Range Comments GLUBED (test code=GLUBED) 205 mg/dL 74-106 Performed by certified glazing machine operator at [facility] [id number] 14:36:00* Test Item Value Reference Range Comments GLUBED (test code=GLUBED) 122 mg/dL 74-106 Performed by certified glazing machine operator at [facility] [id number] 10:35:00* Test Item Value Reference Range Comments GLUBED (test code=GLUBED) 150 mg/dL 74-106 Performed by certified glazing machine operator at [facility] [id number] 09:20:00* Test Item Value Reference Range Comments GLUBED (test code=GLUBED) 117 mg/dL 74-106 Performed by certified glazing machine operator at [facility] COMPREHENSIVE METABOLIC [id number] 07:52:00* Test Item Value Reference Range Comments SODIUM (test code=NA) 140 mmol/L 136-145 POTASSIUM (test code=K) 2.7 mmol/L 3.5-5.1 Results called to [id number] by V.LAB.REG 05/27/18 0752Critical results verified and read back by Nurse? Y CHLORIDE (test code=CL) 108.0 mmol/L 98-107 CARBON DIOXIDE (test code=CO2) 23.0 mmol/L 21-32 ANION GAP (test code=GAP) 11.7 10-20 GLUCOSE (test code=GLU) 109 mg/dL 74-106 BLOOD UREA NITROGEN (test code=BUN) 41 mg/dL 7-18 GLOMERULAR FILTRATION RATE (test code=GFR) 45 mL/min >=60 Estimated GFR by using Modified MDRD formula.Chronic kidney disease is defined as either kidney damageor GFR <60 mL/min/1.73 m2 for >3 months. CREATININE (test code=CREAT) 1.20 mg/dL 0.55-1.02 Note change in reference range due to change in reagent. BUN/CREATININE RATIO (test code=BUN/CREA) 34.2 10-20 TOTAL PROTEIN (test code=PROT) 4.2 gram/dL 6.4-8.2 ALBUMIN (test code=ALB) 1.6 g/dL 3.4-5.0 GLOBULIN (test code=GLOB) 2.6 gram/dL 2.7-4.2 ALBUMIN/GLOBULIN RATIO (test code=A/G) 0.6 0.75-1.50 CALCIUM (test code=CA) 5.4 mg/dL 8.5-10.1 Results called to [id number] by NIESHA 05/27/18 0752Critical results verified and read back by Nurse? Y BILIRUBIN TOTAL (test code=BILT) 0.40 mg/dL 0.0-1.0 SGOT/AST (test code=AST) 19 IUnit/L 15-37 SGPT/ALT (test code=ALT) 6 IUnit/L 12-78 ALKALINE PHOSPHATASE TOTAL (test code=ALKP) 79 IUnit/L 45-117 Note change in reference range due to change in reagent. CBC W/AUTO [id number] 07:26:00* Test Item Value Reference Range Comments WHITE BLOOD CELL (test code=WBC) 10.0 K/mm3 4.5-12.5 RED BLOOD CELL (test code=RBC) 3.32 mill/mm3 3.7-5.2 HEMOGLOBIN (test code=HGB) 9.2 gram/dL 11.5-15.5 HEMATOCRIT (test code=HCT) 30.9 % 36.0-46.0 MEAN CELL VOLUME (test code=MCV) 93.1 fL 80-98 MEAN CELL HGB (test code=MCH) 27.7 picogram 27.0-33.0 MEAN CELL HGB CONCETRATION (test code=MCHC) 29.8 gram/dL 33.0-36.0 RED CELL DISTRIBUTION WIDTH (test code=RDW) 16.5 % 11.6-16.2 RED CELL DISTRIBUTION WIDTH SD (test code=RDW-SD) 55.7 fL 37.0-51.0 PLATELET COUNT (test code=PLT) 270 K/mm3 150-450 MEAN PLATELET VOLUME (test code=MPV) 11.2 fL 6.7-11.0 NEUTROPHIL % (test code=NT%) 83.0 % 39.0-69.0 IMMATURE GRANULOCYTE % (test code=IG%) 0.7 % 0.0-5.0 LYMPHOCYTE % (test code=LY%) 12.9 % 25.0-55.0 MONOCYTE % (test code=MO%) 2.9 % 0.0-10.0 EOSINOPHIL % (test code=EO%) 0.3 % 0.0-5.0 BASOPHIL % (test code=BA%) 0.2 % 0.0-1.0 NUCLEATED RBC % (test code=NRBC%) 0.3 % 0-0 NEUTROPHIL # (test code=NT#) 8.29 K/mm3 1.8-7.7 IMMATURE GRANULOCYTE # (test code=IG#) 0.07 x10 3/uL 0-0.03 LYMPHOCYTE # (test code=LY#) 1.29 K/mm3 1.0-5.0 MONOCYTE # (test code=MO#) 0.29 K/mm3 0-0.8 EOSINOPHIL # (test code=EO#) 0.03 K/mm3 0.0-0.5 BASOPHIL # (test code=BA#) 0.02 K/mm3 0.0-0.2 NUCLEATED RBC # (test code=NRBC#) 0.03 K/mm3 0.0-0.1 MANUAL DIFF REQUIRED (test code=MDIFF) NO [id number] 21:17:00* Test Item Value Reference Range Comments GLUBED (test code=GLUBED) 126 mg/dL 74-106 Performed by certified glazing machine operator at [facility] [id number] 16:35:00* Test Item Value Reference Range Comments GLUBED (test code=GLUBED) 111 mg/dL 74-106 Performed by certified glazing machine operator at [facility] [id number] 11:58:00* Test Item Value Reference Range Comments GLUBED (test code=GLUBED) 184 mg/dL 74-106 Performed by certified glazing machine operator at [facility] COMPREHENSIVE METABOLIC [id number] 08:59:00* Test Item Value Reference Range Comments SODIUM (test code=NA) 133 mmol/L 136-145 POTASSIUM (test code=K) 3.6 mmol/L 3.5-5.1 CHLORIDE (test code=CL) 93.0 mmol/L 98-107 CARBON DIOXIDE (test code=CO2) 30.0 mmol/L 21-32 ANION GAP (test code=GAP) 13.6 10-20 GLUCOSE (test code=GLU) 210 mg/dL 74-106 BLOOD UREA NITROGEN (test code=BUN) 47 mg/dL 7-18 GLOMERULAR FILTRATION RATE (test code=GFR) 32 mL/min >=60 Estimated GFR by using Modified MDRD formula.Chronic kidney disease is defined as either kidney damageor GFR <60 mL/min/1.73 m2 for >3 months. CREATININE (test code=CREAT) 1.60 mg/dL 0.55-1.02 Note change in reference range due to change in reagent. BUN/CREATININE RATIO (test code=BUN/CREA) 29.4 10-20 TOTAL PROTEIN (test code=PROT) 6.9 gram/dL 6.4-8.2 ALBUMIN (test code=ALB) 2.3 g/dL 3.4-5.0 GLOBULIN (test code=GLOB) 4.6 gram/dL 2.7-4.2 ALBUMIN/GLOBULIN RATIO (test code=A/G) 0.5 0.75-1.50 CALCIUM (test code=CA) 8.3 mg/dL 8.5-10.1 BILIRUBIN TOTAL (test code=BILT) 0.60 mg/dL 0.0-1.0 SGOT/AST (test code=AST) 27 IUnit/L 15-37 SGPT/ALT (test code=ALT) 11 IUnit/L 12-78 ALKALINE PHOSPHATASE TOTAL (test code=ALKP) 129 IUnit/L 45-117 Note change in reference range due to change in reagent. CBC W/AUTO [id number] 08:08:00* Test Item Value Reference Range Comments WHITE BLOOD CELL (test code=WBC) 10.3 K/mm3 4.5-12.5 RED BLOOD CELL (test code=RBC) 3.75 mill/mm3 3.7-5.2 HEMOGLOBIN (test code=HGB) 10.6 gram/dL 11.5-15.5 HEMATOCRIT (test code=HCT) 33.3 % 36.0-46.0 MEAN CELL VOLUME (test code=MCV) 88.8 fL 80-98 MEAN CELL HGB (test code=MCH) 28.3 picogram 27.0-33.0 MEAN CELL HGB CONCETRATION (test code=MCHC) 31.8 gram/dL 33.0-36.0 RED CELL DISTRIBUTION WIDTH (test code=RDW) 17.1 % 11.6-16.2 RED CELL DISTRIBUTION WIDTH SD (test code=RDW-SD) 55.3 fL 37.0-51.0 PLATELET COUNT (test code=PLT) 309 K/mm3 150-450 MEAN PLATELET VOLUME (test code=MPV) 11.0 fL 6.7-11.0 NEUTROPHIL % (test code=NT%) 86.7 % 39.0-69.0 IMMATURE GRANULOCYTE % (test code=IG%) 0.5 % 0.0-5.0 LYMPHOCYTE % (test code=LY%) 8.9 % 25.0-55.0 MONOCYTE % (test code=MO%) 3.4 % 0.0-10.0 EOSINOPHIL % (test code=EO%) 0.3 % 0.0-5.0 BASOPHIL % (test code=BA%) 0.2 % 0.0-1.0 NUCLEATED RBC % (test code=NRBC%) 0.0 % 0-0 NEUTROPHIL # (test code=NT#) 8.95 K/mm3 1.8-7.7 IMMATURE GRANULOCYTE # (test code=IG#) 0.05 x10 3/uL 0-0.03 LYMPHOCYTE # (test code=LY#) 0.92 K/mm3 1.0-5.0 MONOCYTE # (test code=MO#) 0.35 K/mm3 0-0.8 EOSINOPHIL # (test code=EO#) 0.03 K/mm3 0.0-0.5 BASOPHIL # (test code=BA#) 0.02 K/mm3 0.0-0.2 NUCLEATED RBC # (test code=NRBC#) 0.00 K/mm3 0.0-0.1 MANUAL DIFF REQUIRED (test code=MDIFF) NO [id number] 05:31:00* Test Item Value Reference Range Comments GLUBED (test code=GLUBED) 224 mg/dL 74-106 Performed by certified glazing machine operator at [facility] [id number] 20:28:00* Test Item Value Reference Range Comments GLUBED (test code=GLUBED) 175 mg/dL 74-106 Performed by certified glazing machine operator at [facility] [id number] 16:20:00* Test Item Value Reference Range Comments GLUBED (test code=GLUBED) 183 mg/dL 74-106 Performed by certified glazing machine operator at [facility] [id number] 11:29:00* Test Item Value Reference Range Comments GLUBED (test code=GLUBED) 95 mg/dL 74-106 Performed by certified glazing machine operator at [facility] COMPREHENSIVE METABOLIC [id number] 08:17:00* Test Item Value Reference Range Comments SODIUM (test code=NA) 133 mmol/L 136-145 POTASSIUM (test code=K) 3.6 mmol/L 3.5-5.1 CHLORIDE (test code=CL) 96.0 mmol/L 98-107 CARBON DIOXIDE (test code=CO2) 28.0 mmol/L 21-32 ANION GAP (test code=GAP) 12.6 10-20 GLUCOSE (test code=GLU) 145 mg/dL 74-106 BLOOD UREA NITROGEN (test code=BUN) 43 mg/dL 7-18 GLOMERULAR FILTRATION RATE (test code=GFR) 30 mL/min >=60 Estimated GFR by using Modified MDRD formula.Chronic kidney disease is defined as either kidney damageor GFR <60 mL/min/1.73 m2 for >3 months. CREATININE (test code=CREAT) 1.70 mg/dL 0.55-1.02 Note change in reference range due to change in reagent. BUN/CREATININE RATIO (test code=BUN/CREA) 25.3 10-20 TOTAL PROTEIN (test code=PROT) 6.4 gram/dL 6.4-8.2 ALBUMIN (test code=ALB) 2.3 g/dL 3.4-5.0 GLOBULIN (test code=GLOB) 4.1 gram/dL 2.7-4.2 ALBUMIN/GLOBULIN RATIO (test code=A/G) 0.6 0.75-1.50 CALCIUM (test code=CA) 8.1 mg/dL 8.5-10.1 BILIRUBIN TOTAL (test code=BILT) 0.40 mg/dL 0.0-1.0 SGOT/AST (test code=AST) 27 IUnit/L 15-37 SGPT/ALT (test code=ALT) 9 IUnit/L 12-78 ALKALINE PHOSPHATASE TOTAL (test code=ALKP) 104 IUnit/L 45-117 Note change in reference range due to change in reagent. CBC W/AUTO [id number] 07:39:00* Test Item Value Reference Range Comments WHITE BLOOD CELL (test code=WBC) 9.7 K/mm3 4.5-12.5 RED BLOOD CELL (test code=RBC) 3.12 mill/mm3 3.7-5.2 HEMOGLOBIN (test code=HGB) 9.0 gram/dL 11.5-15.5 HEMATOCRIT (test code=HCT) 27.6 % 36.0-46.0 MEAN CELL VOLUME (test code=MCV) 88.5 fL 80-98 MEAN CELL HGB (test code=MCH) 28.8 picogram 27.0-33.0 MEAN CELL HGB CONCETRATION (test code=MCHC) 32.6 gram/dL 33.0-36.0 RED CELL DISTRIBUTION WIDTH (test code=RDW) 17.1 % 11.6-16.2 RED CELL DISTRIBUTION WIDTH SD (test code=RDW-SD) 54.6 fL 37.0-51.0 PLATELET COUNT (test code=PLT) 279 K/mm3 150-450 MEAN PLATELET VOLUME (test code=MPV) 10.6 fL 6.7-11.0 NEUTROPHIL % (test code=NT%) 87.6 % 39.0-69.0 IMMATURE GRANULOCYTE % (test code=IG%) 0.4 % 0.0-5.0 LYMPHOCYTE % (test code=LY%) 8.1 % 25.0-55.0 MONOCYTE % (test code=MO%) 3.6 % 0.0-10.0 EOSINOPHIL % (test code=EO%) 0.1 % 0.0-5.0 BASOPHIL % (test code=BA%) 0.2 % 0.0-1.0 NUCLEATED RBC % (test code=NRBC%) 0.0 % 0-0 NEUTROPHIL # (test code=NT#) 8.48 K/mm3 1.8-7.7 IMMATURE GRANULOCYTE # (test code=IG#) 0.04 x10 3/uL 0-0.03 LYMPHOCYTE # (test code=LY#) 0.78 K/mm3 1.0-5.0 MONOCYTE # (test code=MO#) 0.35 K/mm3 0-0.8 EOSINOPHIL # (test code=EO#) 0.01 K/mm3 0.0-0.5 BASOPHIL # (test code=BA#) 0.02 K/mm3 0.0-0.2 NUCLEATED RBC # (test code=NRBC#) 0.00 K/mm3 0.0-0.1 MANUAL DIFF REQUIRED (test code=MDIFF) NO [id number] 21:04:00* Test Item Value Reference Range Comments GLUBED (test code=GLUBED) 189 mg/dL 74-106 Performed by certified glazing machine operator at [facility] [id number] 18:20:00* Test Item Value Reference Range Comments GLUBED (test code=GLUBED) 138 mg/dL 74-106 Performed by certified glazing machine operator at [facility] [id number] 12:54:00* Test Item Value Reference Range Comments GLUBED (test code=GLUBED) 181 mg/dL 74-106 Performed by certified glazing machine operator at [facility] BASIC METABOLIC [id number] 07:07:00* Test Item Value Reference Range Comments SODIUM (test code=NA) 135 mmol/L 136-145 POTASSIUM (test code=K) 3.9 mmol/L 3.5-5.1 CHLORIDE (test code=CL) 98.0 mmol/L 98-107 CARBON DIOXIDE (test code=CO2) 27.0 mmol/L 21-32 ANION GAP (test code=GAP) 13.9 10-20 GLUCOSE (test code=GLU) 185 mg/dL 74-106 BLOOD UREA NITROGEN (test code=BUN) 43 mg/dL 7-18 GLOMERULAR FILTRATION RATE (test code=GFR) 28 mL/min >=60 Estimated GFR by using Modified MDRD formula.Chronic kidney disease is defined as either kidney damageor GFR <60 mL/min/1.73 m2 for >3 months. CREATININE (test code=CREAT) 1.80 mg/dL 0.55-1.02 Note change in reference range due to change in reagent. BUN/CREATININE RATIO (test code=BUN/CREA) 23.9 10-20 CALCIUM (test code=CA) 8.1 mg/dL 8.5-10.1 [id number] 07:07:00* Test Item Value Reference Range Comments PHOSPHORUS (test code=PHOS) 3.5 mg/dL 2.5-4.9 [id number] 07:07:00* Test Item Value Reference Range Comments MAGNESIUM (test code=MAG) 1.1 mg/dL 1.8-2.4 [id number] 07:05:00* Test Item Value Reference Range Comments GLUBED (test code=GLUBED) 183 mg/dL 74-106 Performed by certified glazing machine operator at [facility] BASIC METABOLIC [id number] 07:01:00* Test Item Value Reference Range Comments SODIUM (test code=NA) 135 mmol/L 136-145 POTASSIUM (test code=K) 3.9 mmol/L 3.5-5.1 CHLORIDE (test code=CL) 98.0 mmol/L 98-107 CARBON DIOXIDE (test code=CO2) mmol/L 21-32 ANION GAP (test code=GAP) 10-20 GLUCOSE (test code=GLU) mg/dL 74-106 BLOOD UREA NITROGEN (test code=BUN) mg/dL 7-18 GLOMERULAR FILTRATION RATE (test code=GFR) mL/min >=60 CREATININE (test code=CREAT) mg/dL 0.55-1.02 BUN/CREATININE RATIO (test code=BUN/CREA) 10-20 CALCIUM (test code=CA) mg/dL 8.5-10.1 [id number] 07:01:00* Test Item Value Reference Range Comments PHOSPHORUS (test code=PHOS) mg/dL 2.5-4.9 [id number] 07:01:00* Test Item Value Reference Range Comments MAGNESIUM (test code=MAG) mg/dL 1.8-2.4 [id number] 21:50:00* Test Item Value Reference Range Comments GLUBED (test code=GLUBED) 133 mg/dL 74-106 Performed by certified glazing machine operator at [facility] [id number] 16:12:00* Test Item Value Reference Range Comments GLUBED (test code=GLUBED) 166 mg/dL 74-106 Performed by certified glazing machine operator at [facility] - XR CHEST 1 [id number] 14:58:00 FAX: Joshua Healy MD [phone] [place]: St: ADM FAX: Y Leroy Hernandez [phone] Name: JOSÉ MIGUEL MCGINNIS [facility] : 1950 Age/S: 67/F [address] [facility] [address] #: [id number] Loc: V.2082 [place] [address] Phys: Leroy Hernandez Acct: [id number] Dis Date: Status: ADM IN PHONE #: [phone] Exam Date: 05/23/2018 1446 FAX #: [phone] Reason: fever EXAMS: CPT CODE: [id number] XR CHEST 1 V [id number] REASON FOR EXAM: fever EXAM ORDER DATE: 05/23/2018 12:00 AM Ordering Reggie: ESTIVEN Augustine PROCEDURE: - XR CHEST 1 V COMPARISON: 05/15/2018 FINDINGS: Portable AP frontal view of the chest obtained at 2:49 PM shows clear lungs without evidence of consolidation. There is no evidence of effusion. The heart size is minimally enlarged. Stable appearance of the left IJ tunneled central line. Pulmonary vasculatures are unremarkable. IMPRESSION: Minimal cardiomegaly and atelectasis at the left base at 0012 Reported and signed by: Reza Hunter M.D. CC: Joshua Healy MD; Leroy Hernandez Technologist: Shaye Carrasquillo RT(R) Trnscrd Date/Time/By: 05/23/2018 (1458) : By: ChayaVTL Orig Print D/T: S: 05/23/2018 (1676) PAGE 1 Signed Report GLUBED 2018-05-23 12:19:00* Test Item Value Reference Range Comments GLUBED (test code=GLUBED) 129 mg/dL 74-106 Performed by certified glazing machine operator at [facility] CBC W/MANUAL [id number] 07:26:00* Test Item Value Reference Range Comments WHITE BLOOD CELL (test code=WBC) 10.1 K/mm3 4.5-12.5 RED BLOOD CELL (test code=RBC) 3.35 mill/mm3 3.7-5.2 HEMOGLOBIN (test code=HGB) 9.3 gram/dL 11.5-15.5 HEMATOCRIT (test code=HCT) 30.9 % 36.0-46.0 MEAN CELL VOLUME (test code=MCV) 92.2 fL 80-98 MEAN CELL HGB (test code=MCH) 27.8 picogram 27.0-33.0 MEAN CELL HGB CONCETRATION (test code=MCHC) 30.1 gram/dL 33.0-36.0 RED CELL DISTRIBUTION WIDTH (test code=RDW) 16.6 % 11.6-16.2 RED CELL DISTRIBUTION WIDTH SD (test code=RDW-SD) 56.4 fL 37.0-51.0 PLATELET COUNT (test code=PLT) 202 K/mm3 150-450 MEAN PLATELET VOLUME (test code=MPV) 10.9 fL 6.7-11.0 IMMATURE GRANULOCYTE % (test code=IG%) 0.7 % 0.0-5.0 NUCLEATED RBC % (test code=NRBC%) 0.0 % 0-0 NEUTROPHIL # (test code=NT#) 8.76 K/mm3 1.8-7.7 IMMATURE GRANULOCYTE # (test code=IG#) 0.07 x10 3/uL 0-0.03 LYMPHOCYTE # (test code=LY#) 0.56 K/mm3 1.0-5.0 MONOCYTE # (test code=MO#) 0.45 K/mm3 0-0.8 EOSINOPHIL # (test code=EO#) 0.20 K/mm3 0.0-0.5 BASOPHIL # (test code=BA#) 0.03 K/mm3 0.0-0.2 NUCLEATED RBC # (test code=NRBC#) 0.00 K/mm3 0.0-0.1 MANUAL DIFF REQUIRED (test code=MDIFF) YES STAIN ACCEPTABILITY (test code=STN ACCEPTABLE) STAIN ACCEPTABLE TOTAL CELLS COUNTED (test code=TCC) 118 #CELLS SEGMENTED NEUTROPHILS (test code=SEG) 94.9 % 39-69 BAND NEUTROPHIL (test code=BAND) 0 % 0-10 LYMPHOCYTE (test code=LYMPH) 1.7 % 25-55 REACTIVE LYMPH (test code=RELYMPH) 0 % MONOCYTE (test code=MON) 0.9 % 0-10 EOSINOPHIL (test code=EOS) 2.5 % 0.0-5.0 BASOPHIL (test code=BASO) 0 % 0-1.0 METAMYELOCYTE (test code=META) 0 % 0-0 MYELOCYTE (test code=MYELO) 0 % 0.0-0.0 PROMYELOCYTE (test code=PROM) 0 % 0-0 POLYCHROMASIA (test code=POLC) 1+ ANISOCYTOSIS (test code=ANISO) 1+ MICROCYTOSIS (test code=MICR) 1+ PLATELET ESTIMATE (test code=PLTEST) ADEQUATE PLATELET MORPHOLOGY (test code=PLTMORPH) NORMAL IMMATURE FORMS (test code=IMMAT) 0 % COMPREHENSIVE METABOLIC [id number] 07:14:00* Test Item Value Reference Range Comments SODIUM (test code=NA) 132 mmol/L 136-145 POTASSIUM (test code=K) 3.1 mmol/L 3.5-5.1 CHLORIDE (test code=CL) 94.0 mmol/L 98-107 CARBON DIOXIDE (test code=CO2) 28.0 mmol/L 21-32 ANION GAP (test code=GAP) 13.1 10-20 GLUCOSE (test code=GLU) 188 mg/dL 74-106 BLOOD UREA NITROGEN (test code=BUN) 41 mg/dL 7-18 GLOMERULAR FILTRATION RATE (test code=GFR) 32 mL/min >=60 Estimated GFR by using Modified MDRD formula.Chronic kidney disease is defined as either kidney damageor GFR <60 mL/min/1.73 m2 for >3 months. CREATININE (test code=CREAT) 1.60 mg/dL 0.55-1.02 Note change in reference range due to change in reagent. BUN/CREATININE RATIO (test code=BUN/CREA) 25.6 10-20 TOTAL PROTEIN (test code=PROT) 5.8 gram/dL 6.4-8.2 ALBUMIN (test code=ALB) 1.8 g/dL 3.4-5.0 GLOBULIN (test code=GLOB) 4.0 gram/dL 2.7-4.2 ALBUMIN/GLOBULIN RATIO (test code=A/G) 0.5 0.75-1.50 CALCIUM (test code=CA) 7.9 mg/dL 8.5-10.1 BILIRUBIN TOTAL (test code=BILT) 0.30 mg/dL 0.0-1.0 SGOT/AST (test code=AST) 17 IUnit/L 15-37 SGPT/ALT (test code=ALT) < 6 IUnit/L 12-78 ALKALINE PHOSPHATASE TOTAL (test code=ALKP) 99 IUnit/L 45-117 Note change in reference range due to change in reagent. COMPREHENSIVE METABOLIC [id number] 06:49:00* Test Item Value Reference Range Comments SODIUM (test code=NA) 132 mmol/L 136-145 POTASSIUM (test code=K) 3.1 mmol/L 3.5-5.1 CHLORIDE (test code=CL) 94.0 mmol/L 98-107 CARBON DIOXIDE (test code=CO2) mmol/L 21-32 ANION GAP (test code=GAP) 10-20 GLUCOSE (test code=GLU) mg/dL 74-106 BLOOD UREA NITROGEN (test code=BUN) mg/dL 7-18 GLOMERULAR FILTRATION RATE (test code=GFR) mL/min >=60 CREATININE (test code=CREAT) mg/dL 0.55-1.02 BUN/CREATININE RATIO (test code=BUN/CREA) 10-20 TOTAL PROTEIN (test code=PROT) gram/dL 6.4-8.2 ALBUMIN (test code=ALB) g/dL 3.4-5.0 GLOBULIN (test code=GLOB) gram/dL 2.7-4.2 ALBUMIN/GLOBULIN RATIO (test code=A/G) 0.75-1.50 CALCIUM (test code=CA) mg/dL 8.5-10.1 BILIRUBIN TOTAL (test code=BILT) mg/dL 0.0-1.0 SGOT/AST (test code=AST) IUnit/L 15-37 SGPT/ALT (test code=ALT) IUnit/L 12-78 ALKALINE PHOSPHATASE TOTAL (test code=ALKP) IUnit/L 45-117 CBC W/MANUAL [id number] 06:11:00* Test Item Value Reference Range Comments WHITE BLOOD CELL (test code=WBC) 10.1 K/mm3 4.5-12.5 RED BLOOD CELL (test code=RBC) 3.35 mill/mm3 3.7-5.2 HEMOGLOBIN (test code=HGB) 9.3 gram/dL 11.5-15.5 HEMATOCRIT (test code=HCT) 30.9 % 36.0-46.0 MEAN CELL VOLUME (test code=MCV) 92.2 fL 80-98 MEAN CELL HGB (test code=MCH) 27.8 picogram 27.0-33.0 MEAN CELL HGB CONCETRATION (test code=MCHC) 30.1 gram/dL 33.0-36.0 RED CELL DISTRIBUTION WIDTH (test code=RDW) 16.6 % 11.6-16.2 RED CELL DISTRIBUTION WIDTH SD (test code=RDW-SD) 56.4 fL 37.0-51.0 PLATELET COUNT (test code=PLT) 202 K/mm3 150-450 MEAN PLATELET VOLUME (test code=MPV) 10.9 fL 6.7-11.0 IMMATURE GRANULOCYTE % (test code=IG%) 0.7 % 0.0-5.0 NUCLEATED RBC % (test code=NRBC%) 0.0 % 0-0 NEUTROPHIL # (test code=NT#) 8.76 K/mm3 1.8-7.7 IMMATURE GRANULOCYTE # (test code=IG#) 0.07 x10 3/uL 0-0.03 LYMPHOCYTE # (test code=LY#) 0.56 K/mm3 1.0-5.0 MONOCYTE # (test code=MO#) 0.45 K/mm3 0-0.8 EOSINOPHIL # (test code=EO#) 0.20 K/mm3 0.0-0.5 BASOPHIL # (test code=BA#) 0.03 K/mm3 0.0-0.2 NUCLEATED RBC # (test code=NRBC#) 0.00 K/mm3 0.0-0.1 MANUAL DIFF REQUIRED (test code=MDIFF) YES STAIN ACCEPTABILITY (test code=STN ACCEPTABLE) TOTAL CELLS COUNTED (test code=TCC) #CELLS SEGMENTED NEUTROPHILS (test code=SEG) % 39-69 LYMPHOCYTE (test code=LYMPH) % 25-55 MONOCYTE (test code=MON) % 0-10 EOSINOPHIL (test code=EOS) % 0.0-5.0 CABOT RINGS (test code=CAB) MORPHOLOGY COMMENT (test code=MOC) PLATELET ESTIMATE (test code=PLTEST) PLATELET MORPHOLOGY (test code=PLTMORPH) CBC W/MANUAL [id number] 06:11:00* Test Item Value Reference Range Comments WHITE BLOOD CELL (test code=WBC) 10.1 K/mm3 4.5-12.5 RED BLOOD CELL (test code=RBC) 3.35 mill/mm3 3.7-5.2 HEMOGLOBIN (test code=HGB) 9.3 gram/dL 11.5-15.5 HEMATOCRIT (test code=HCT) 30.9 % 36.0-46.0 MEAN CELL VOLUME (test code=MCV) 92.2 fL 80-98 MEAN CELL HGB (test code=MCH) 27.8 picogram 27.0-33.0 MEAN CELL HGB CONCETRATION (test code=MCHC) 30.1 gram/dL 33.0-36.0 RED CELL DISTRIBUTION WIDTH (test code=RDW) 16.6 % 11.6-16.2 RED CELL DISTRIBUTION WIDTH SD (test code=RDW-SD) 56.4 fL 37.0-51.0 PLATELET COUNT (test code=PLT) 202 K/mm3 150-450 MEAN PLATELET VOLUME (test code=MPV) 10.9 fL 6.7-11.0 IMMATURE GRANULOCYTE % (test code=IG%) 0.7 % 0.0-5.0 NUCLEATED RBC % (test code=NRBC%) 0.0 % 0-0 NEUTROPHIL # (test code=NT#) 8.76 K/mm3 1.8-7.7 IMMATURE GRANULOCYTE # (test code=IG#) 0.07 x10 3/uL 0-0.03 LYMPHOCYTE # (test code=LY#) 0.56 K/mm3 1.0-5.0 MONOCYTE # (test code=MO#) 0.45 K/mm3 0-0.8 EOSINOPHIL # (test code=EO#) 0.20 K/mm3 0.0-0.5 BASOPHIL # (test code=BA#) 0.03 K/mm3 0.0-0.2 NUCLEATED RBC # (test code=NRBC#) 0.00 K/mm3 0.0-0.1 MANUAL DIFF REQUIRED (test code=MDIFF) YES STAIN ACCEPTABILITY (test code=STN ACCEPTABLE) TOTAL CELLS COUNTED (test code=TCC) #CELLS SEGMENTED NEUTROPHILS (test code=SEG) % 39-69 LYMPHOCYTE (test code=LYMPH) % 25-55 MONOCYTE (test code=MON) % 0-10 EOSINOPHIL (test code=EOS) % 0.0-5.0 MORPHOLOGY COMMENT (test code=MOC) PLATELET ESTIMATE (test code=PLTEST) PLATELET MORPHOLOGY (test code=PLTMORPH) CBC W/MANUAL [id number] 06:11:00* Test Item Value Reference Range Comments WHITE BLOOD CELL (test code=WBC) 10.1 K/mm3 4.5-12.5 RED BLOOD CELL (test code=RBC) 3.35 mill/mm3 3.7-5.2 HEMOGLOBIN (test code=HGB) 9.3 gram/dL 11.5-15.5 HEMATOCRIT (test code=HCT) 30.9 % 36.0-46.0 MEAN CELL VOLUME (test code=MCV) 92.2 fL 80-98 MEAN CELL HGB (test code=MCH) 27.8 picogram 27.0-33.0 MEAN CELL HGB CONCETRATION (test code=MCHC) 30.1 gram/dL 33.0-36.0 RED CELL DISTRIBUTION WIDTH (test code=RDW) 16.6 % 11.6-16.2 RED CELL DISTRIBUTION WIDTH SD (test code=RDW-SD) 56.4 fL 37.0-51.0 PLATELET COUNT (test code=PLT) 202 K/mm3 150-450 MEAN PLATELET VOLUME (test code=MPV) 10.9 fL 6.7-11.0 IMMATURE GRANULOCYTE % (test code=IG%) 0.7 % 0.0-5.0 NUCLEATED RBC % (test code=NRBC%) 0.0 % 0-0 NEUTROPHIL # (test code=NT#) 8.76 K/mm3 1.8-7.7 IMMATURE GRANULOCYTE # (test code=IG#) 0.07 x10 3/uL 0-0.03 LYMPHOCYTE # (test code=LY#) 0.56 K/mm3 1.0-5.0 MONOCYTE # (test code=MO#) 0.45 K/mm3 0-0.8 EOSINOPHIL # (test code=EO#) 0.20 K/mm3 0.0-0.5 BASOPHIL # (test code=BA#) 0.03 K/mm3 0.0-0.2 NUCLEATED RBC # (test code=NRBC#) 0.00 K/mm3 0.0-0.1 MANUAL DIFF REQUIRED (test code=MDIFF) YES STAIN ACCEPTABILITY (test code=STN ACCEPTABLE) TOTAL CELLS COUNTED (test code=TCC) #CELLS SEGMENTED NEUTROPHILS (test code=SEG) % 39-69 LYMPHOCYTE (test code=LYMPH) % 25-55 MONOCYTE (test code=MON) % 0-10 MORPHOLOGY COMMENT (test code=MOC) PLATELET ESTIMATE (test code=PLTEST) PLATELET MORPHOLOGY (test code=PLTMORPH) CBC W/MANUAL [id number] 06:10:00* Test Item Value Reference Range Comments WHITE BLOOD CELL (test code=WBC) 10.1 K/mm3 4.5-12.5 RED BLOOD CELL (test code=RBC) 3.35 mill/mm3 3.7-5.2 HEMOGLOBIN (test code=HGB) 9.3 gram/dL 11.5-15.5 HEMATOCRIT (test code=HCT) 30.9 % 36.0-46.0 MEAN CELL VOLUME (test code=MCV) 92.2 fL 80-98 MEAN CELL HGB (test code=MCH) 27.8 picogram 27.0-33.0 MEAN CELL HGB CONCETRATION (test code=MCHC) 30.1 gram/dL 33.0-36.0 RED CELL DISTRIBUTION WIDTH (test code=RDW) 16.6 % 11.6-16.2 RED CELL DISTRIBUTION WIDTH SD (test code=RDW-SD) 56.4 fL 37.0-51.0 PLATELET COUNT (test code=PLT) 202 K/mm3 150-450 MEAN PLATELET VOLUME (test code=MPV) 10.9 fL 6.7-11.0 IMMATURE GRANULOCYTE % (test code=IG%) 0.7 % 0.0-5.0 NUCLEATED RBC % (test code=NRBC%) 0.0 % 0-0 NEUTROPHIL # (test code=NT#) 8.76 K/mm3 1.8-7.7 IMMATURE GRANULOCYTE # (test code=IG#) 0.07 x10 3/uL 0-0.03 LYMPHOCYTE # (test code=LY#) 0.56 K/mm3 1.0-5.0 MONOCYTE # (test code=MO#) 0.45 K/mm3 0-0.8 EOSINOPHIL # (test code=EO#) 0.20 K/mm3 0.0-0.5 BASOPHIL # (test code=BA#) 0.03 K/mm3 0.0-0.2 NUCLEATED RBC # (test code=NRBC#) 0.00 K/mm3 0.0-0.1 MANUAL DIFF REQUIRED (test code=MDIFF) YES STAIN ACCEPTABILITY (test code=STN ACCEPTABLE) TOTAL CELLS COUNTED (test code=TCC) #CELLS SEGMENTED NEUTROPHILS (test code=SEG) % 39-69 LYMPHOCYTE (test code=LYMPH) % 25-55 MONOCYTE (test code=MON) % 0-10 EOSINOPHIL (test code=EOS) % 0.0-5.0 CABOT RINGS (test code=CAB) MORPHOLOGY COMMENT (test code=MOC) PLATELET ESTIMATE (test code=PLTEST) PLATELET MORPHOLOGY (test code=PLTMORPH) CBC W/MANUAL [id number] 06:10:00* Test Item Value Reference Range Comments WHITE BLOOD CELL (test code=WBC) 10.1 K/mm3 4.5-12.5 RED BLOOD CELL (test code=RBC) 3.35 mill/mm3 3.7-5.2 HEMOGLOBIN (test code=HGB) 9.3 gram/dL 11.5-15.5 HEMATOCRIT (test code=HCT) 30.9 % 36.0-46.0 MEAN CELL VOLUME (test code=MCV) 92.2 fL 80-98 MEAN CELL HGB (test code=MCH) 27.8 picogram 27.0-33.0 MEAN CELL HGB CONCETRATION (test code=MCHC) 30.1 gram/dL 33.0-36.0 RED CELL DISTRIBUTION WIDTH (test code=RDW) 16.6 % 11.6-16.2 RED CELL DISTRIBUTION WIDTH SD (test code=RDW-SD) 56.4 fL 37.0-51.0 PLATELET COUNT (test code=PLT) 202 K/mm3 150-450 MEAN PLATELET VOLUME (test code=MPV) 10.9 fL 6.7-11.0 IMMATURE GRANULOCYTE % (test code=IG%) 0.7 % 0.0-5.0 NUCLEATED RBC % (test code=NRBC%) 0.0 % 0-0 NEUTROPHIL # (test code=NT#) 8.76 K/mm3 1.8-7.7 IMMATURE GRANULOCYTE # (test code=IG#) 0.07 x10 3/uL 0-0.03 LYMPHOCYTE # (test code=LY#) 0.56 K/mm3 1.0-5.0 MONOCYTE # (test code=MO#) 0.45 K/mm3 0-0.8 EOSINOPHIL # (test code=EO#) 0.20 K/mm3 0.0-0.5 BASOPHIL # (test code=BA#) 0.03 K/mm3 0.0-0.2 NUCLEATED RBC # (test code=NRBC#) 0.00 K/mm3 0.0-0.1 MANUAL DIFF REQUIRED (test code=MDIFF) YES STAIN ACCEPTABILITY (test code=STN ACCEPTABLE) TOTAL CELLS COUNTED (test code=TCC) #CELLS SEGMENTED NEUTROPHILS (test code=SEG) % 39-69 LYMPHOCYTE (test code=LYMPH) % 25-55 MONOCYTE (test code=MON) % 0-10 EOSINOPHIL (test code=EOS) % 0.0-5.0 CABOT RINGS (test code=CAB) MORPHOLOGY COMMENT (test code=MOC) PLATELET ESTIMATE (test code=PLTEST) PLATELET MORPHOLOGY (test code=PLTMORPH) [id number] 05:28:00* Test Item Value Reference Range Comments GLUBED (test code=GLUBED) 187 mg/dL 74-106 Performed by certified glazing machine operator at [facility] [id number] 21:12:00* Test Item Value Reference Range Comments GLUBED (test code=GLUBED) 139 mg/dL 74-106 Performed by certified glazing machine operator at [facility] [id number] 16:32:00* Test Item Value Reference Range Comments GLUBED (test code=GLUBED) 134 mg/dL 74-106 Performed by certified glazing machine operator at [facility] [id number] 12:10:00* Test Item Value Reference Range Comments GLUBED (test code=GLUBED) 145 mg/dL 74-106 Performed by certified glazing machine operator at [facility] CBC W/O [id number] 08:45:00* Test Item Value Reference Range Comments WHITE BLOOD CELL (test code=WBC) 10.9 K/mm3 4.5-12.5 RED BLOOD CELL (test code=RBC) 3.07 mill/mm3 3.7-5.2 HEMOGLOBIN (test code=HGB) 8.9 gram/dL 11.5-15.5 HEMATOCRIT (test code=HCT) 27.6 % 36.0-46.0 MEAN CELL VOLUME (test code=MCV) 89.9 fL 80-98 MEAN CELL HGB (test code=MCH) 29.0 picogram 27.0-33.0 MEAN CELL HGB CONCETRATION (test code=MCHC) 32.2 gram/dL 33.0-36.0 RED CELL DISTRIBUTION WIDTH (test code=RDW) 16.6 % 11.6-16.2 PLATELET COUNT (test code=PLT) 204 K/mm3 150-450 MEAN PLATELET VOLUME (test code=MPV) 11.7 fL 6.7-11.0 PATIENT HAS A LINE RN TERRI WILL COLLECT V.LAB.EP [id number] METABOLIC [id number] 08:14:00* Test Item Value Reference Range Comments SODIUM (test code=NA) 136 mmol/L 136-145 POTASSIUM (test code=K) 3.3 mmol/L 3.5-5.1 CHLORIDE (test code=CL) 97.0 mmol/L 98-107 CARBON DIOXIDE (test code=CO2) 29.0 mmol/L 21-32 ANION GAP (test code=GAP) 13.3 10-20 GLUCOSE (test code=GLU) 135 mg/dL 74-106 BLOOD UREA NITROGEN (test code=BUN) 36 mg/dL 7-18 GLOMERULAR FILTRATION RATE (test code=GFR) 32 mL/min >=60 Estimated GFR by using Modified MDRD formula.Chronic kidney disease is defined as either kidney damageor GFR <60 mL/min/1.73 m2 for >3 months. CREATININE (test code=CREAT) 1.60 mg/dL 0.55-1.02 Note change in reference range due to change in reagent. BUN/CREATININE RATIO (test code=BUN/CREA) 22.5 10-20 TOTAL PROTEIN (test code=PROT) 5.0 gram/dL 6.4-8.2 ALBUMIN (test code=ALB) 1.7 g/dL 3.4-5.0 GLOBULIN (test code=GLOB) 3.3 gram/dL 2.7-4.2 ALBUMIN/GLOBULIN RATIO (test code=A/G) 0.5 0.75-1.50 CALCIUM (test code=CA) 7.6 mg/dL 8.5-10.1 BILIRUBIN TOTAL (test code=BILT) 0.30 mg/dL 0.0-1.0 SGOT/AST (test code=AST) 14 IUnit/L 15-37 SGPT/ALT (test code=ALT) < 6 IUnit/L 12-78 ALKALINE PHOSPHATASE TOTAL (test code=ALKP) 75 IUnit/L 45-117 Note change in reference range due to change in reagent. PATIENT IS A LINE DRAW OLAMIDE MURRAY WILL COLLECT V.LAB.EP04 0630COMPREHENSIVE METABOLIC [id number] 08:11:00* Test Item Value Reference Range Comments SODIUM (test code=NA) 136 mmol/L 136-145 POTASSIUM (test code=K) 3.3 mmol/L 3.5-5.1 CHLORIDE (test code=CL) 97.0 mmol/L 98-107 CARBON DIOXIDE (test code=CO2) mmol/L 21-32 ANION GAP (test code=GAP) 10-20 GLUCOSE (test code=GLU) mg/dL 74-106 BLOOD UREA NITROGEN (test code=BUN) mg/dL 7-18 GLOMERULAR FILTRATION RATE (test code=GFR) mL/min >=60 CREATININE (test code=CREAT) mg/dL 0.55-1.02 BUN/CREATININE RATIO (test code=BUN/CREA) 10-20 TOTAL PROTEIN (test code=PROT) gram/dL 6.4-8.2 ALBUMIN (test code=ALB) g/dL 3.4-5.0 GLOBULIN (test code=GLOB) gram/dL 2.7-4.2 ALBUMIN/GLOBULIN RATIO (test code=A/G) 0.75-1.50 CALCIUM (test code=CA) mg/dL 8.5-10.1 BILIRUBIN TOTAL (test code=BILT) mg/dL 0.0-1.0 SGOT/AST (test code=AST) IUnit/L 15-37 SGPT/ALT (test code=ALT) IUnit/L 12-78 ALKALINE PHOSPHATASE TOTAL (test code=ALKP) IUnit/L 45-117 PATIENT IS A LINE DRAW OLAMIDE MURRAY WILL COLLECT V.LAB.EP05/22/18 [id number] 05:12:00* Test Item Value Reference Range Comments GLUBED (test code=GLUBED) 140 mg/dL 74-106 Performed by certified glazing machine operator at [facility] [id number] 21:13:00* Test Item Value Reference Range Comments GLUBED (test code=GLUBED) 111 mg/dL 74-106 Performed by certified glazing machine operator at [facility] [id number] 16:21:00* Test Item Value Reference Range Comments GLUBED (test code=GLUBED) 139 mg/dL 74-106 Performed by certified glazing machine operator at [facility] [id number] 12:27:00* Test Item Value Reference Range Comments GLUBED (test code=GLUBED) 161 mg/dL 74-106 Performed by certified glazing machine operator at [facility] CBC W/MANUAL [id number] 07:04:00* Test Item Value Reference Range Comments WHITE BLOOD CELL (test code=WBC) 10.2 K/mm3 4.5-12.5 RED BLOOD CELL (test code=RBC) 3.32 mill/mm3 3.7-5.2 HEMOGLOBIN (test code=HGB) 9.1 gram/dL 11.5-15.5 HEMATOCRIT (test code=HCT) 30.1 % 36.0-46.0 MEAN CELL VOLUME (test code=MCV) 90.7 fL 80-98 MEAN CELL HGB (test code=MCH) 27.4 picogram 27.0-33.0 MEAN CELL HGB CONCETRATION (test code=MCHC) 30.2 gram/dL 33.0-36.0 RED CELL DISTRIBUTION WIDTH (test code=RDW) 16.6 % 11.6-16.2 RED CELL DISTRIBUTION WIDTH SD (test code=RDW-SD) 53.9 fL 37.0-51.0 PLATELET COUNT (test code=PLT) 193 K/mm3 150-450 MEAN PLATELET VOLUME (test code=MPV) 11.0 fL 6.7-11.0 IMMATURE GRANULOCYTE % (test code=IG%) 1.4 % 0.0-5.0 NUCLEATED RBC % (test code=NRBC%) 0.0 % 0-0 NEUTROPHIL # (test code=NT#) 7.37 K/mm3 1.8-7.7 IMMATURE GRANULOCYTE # (test code=IG#) 0.14 x10 3/uL 0-0.03 LYMPHOCYTE # (test code=LY#) 1.35 K/mm3 1.0-5.0 MONOCYTE # (test code=MO#) 0.58 K/mm3 0-0.8 EOSINOPHIL # (test code=EO#) 0.77 K/mm3 0.0-0.5 BASOPHIL # (test code=BA#) 0.03 K/mm3 0.0-0.2 NUCLEATED RBC # (test code=NRBC#) 0.00 K/mm3 0.0-0.1 MANUAL DIFF REQUIRED (test code=MDIFF) YES STAIN ACCEPTABILITY (test code=STN ACCEPTABLE) STAIN ACCEPTABLE TOTAL CELLS COUNTED (test code=TCC) 115 #CELLS SEGMENTED NEUTROPHILS (test code=SEG) 83.5 % 39-69 BAND NEUTROPHIL (test code=BAND) 0 % 0-10 LYMPHOCYTE (test code=LYMPH) 7.8 % 25-55 REACTIVE LYMPH (test code=RELYMPH) 0 % MONOCYTE (test code=MON) 5.2 % 0-10 EOSINOPHIL (test code=EOS) 3.5 % 0.0-5.0 BASOPHIL (test code=BASO) 0 % 0-1.0 METAMYELOCYTE (test code=META) 0 % 0-0 MYELOCYTE (test code=MYELO) 0 % 0.0-0.0 PROMYELOCYTE (test code=PROM) 0 % 0-0 POLYCHROMASIA (test code=POLC) 1+ HYPOCHROMIA (test code=HYPO) 1+ BASOPHILIC STIPPLING (test code=STP) 1+ ANISOCYTOSIS (test code=ANISO) 1+ MACROCYTOSIS (test code=MACR) 1+ TOXIC GRANULATION (test code=TOX) 1+ PLATELET ESTIMATE (test code=PLTEST) ADEQUATE PLATELET MORPHOLOGY (test code=PLTMORPH) NORMAL IMMATURE FORMS (test code=IMMAT) 0 % COMPREHENSIVE METABOLIC [id number] 05:53:00* Test Item Value Reference Range Comments SODIUM (test code=NA) 137 mmol/L 136-145 POTASSIUM (test code=K) 3.3 mmol/L 3.5-5.1 CHLORIDE (test code=CL) 100.0 mmol/L 98-107 CARBON DIOXIDE (test code=CO2) 30.0 mmol/L 21-32 ANION GAP (test code=GAP) 10.3 10-20 GLUCOSE (test code=GLU) 121 mg/dL 74-106 BLOOD UREA NITROGEN (test code=BUN) 28 mg/dL 7-18 RESULT VERIFIED BY REPEAT ANALYSIS GLOMERULAR FILTRATION RATE (test code=GFR) 32 mL/min >=60 Estimated GFR by using Modified MDRD formula.Chronic kidney disease is defined as either kidney damageor GFR <60 mL/min/1.73 m2 for >3 months. CREATININE (test code=CREAT) 1.60 mg/dL 0.55-1.02 Note change in reference range due to change in reagent. BUN/CREATININE RATIO (test code=BUN/CREA) 17.5 10-20 TOTAL PROTEIN (test code=PROT) 5.5 gram/dL 6.4-8.2 ALBUMIN (test code=ALB) 1.7 g/dL 3.4-5.0 GLOBULIN (test code=GLOB) 3.8 gram/dL 2.7-4.2 ALBUMIN/GLOBULIN RATIO (test code=A/G) 0.5 0.75-1.50 CALCIUM (test code=CA) 7.7 mg/dL 8.5-10.1 BILIRUBIN TOTAL (test code=BILT) 0.20 mg/dL 0.0-1.0 SGOT/AST (test code=AST) 12 IUnit/L 15-37 SGPT/ALT (test code=ALT) < 6 IUnit/L 12-78 ALKALINE PHOSPHATASE TOTAL (test code=ALKP) 80 IUnit/L 45-117 Note change in reference range due to change in reagent. [id number] 05:53:00* Test Item Value Reference Range Comments MAGNESIUM (test code=MAG) 1.2 mg/dL 1.8-2.4 COMPREHENSIVE METABOLIC [id number] 05:35:00* Test Item Value Reference Range Comments SODIUM (test code=NA) 137 mmol/L 136-145 POTASSIUM (test code=K) 3.3 mmol/L 3.5-5.1 CHLORIDE (test code=CL) 100.0 mmol/L 98-107 CARBON DIOXIDE (test code=CO2) mmol/L 21-32 ANION GAP (test code=GAP) 10-20 GLUCOSE (test code=GLU) mg/dL 74-106 BLOOD UREA NITROGEN (test code=BUN) mg/dL 7-18 GLOMERULAR FILTRATION RATE (test code=GFR) mL/min >=60 CREATININE (test code=CREAT) mg/dL 0.55-1.02 BUN/CREATININE RATIO (test code=BUN/CREA) 10-20 TOTAL PROTEIN (test code=PROT) gram/dL 6.4-8.2 ALBUMIN (test code=ALB) g/dL 3.4-5.0 GLOBULIN (test code=GLOB) gram/dL 2.7-4.2 ALBUMIN/GLOBULIN RATIO (test code=A/G) 0.75-1.50 CALCIUM (test code=CA) mg/dL 8.5-10.1 BILIRUBIN TOTAL (test code=BILT) mg/dL 0.0-1.0 SGOT/AST (test code=AST) IUnit/L 15-37 SGPT/ALT (test code=ALT) IUnit/L 12-78 ALKALINE PHOSPHATASE TOTAL (test code=ALKP) IUnit/L 45-117 [id number] 05:35:00* Test Item Value Reference Range Comments MAGNESIUM (test code=MAG) mg/dL 1.8-2.4 [id number] 05:28:00* Test Item Value Reference Range Comments GLUBED (test code=GLUBED) 114 mg/dL 74-106 Performed by certified glazing machine operator at [facility] CBC W/MANUAL [id number] 05:24:00* Test Item Value Reference Range Comments WHITE BLOOD CELL (test code=WBC) 10.2 K/mm3 4.5-12.5 RED BLOOD CELL (test code=RBC) 3.32 mill/mm3 3.7-5.2 HEMOGLOBIN (test code=HGB) 9.1 gram/dL 11.5-15.5 HEMATOCRIT (test code=HCT) 30.1 % 36.0-46.0 MEAN CELL VOLUME (test code=MCV) 90.7 fL 80-98 MEAN CELL HGB (test code=MCH) 27.4 picogram 27.0-33.0 MEAN CELL HGB CONCETRATION (test code=MCHC) 30.2 gram/dL 33.0-36.0 RED CELL DISTRIBUTION WIDTH (test code=RDW) 16.6 % 11.6-16.2 RED CELL DISTRIBUTION WIDTH SD (test code=RDW-SD) 53.9 fL 37.0-51.0 PLATELET COUNT (test code=PLT) 193 K/mm3 150-450 MEAN PLATELET VOLUME (test code=MPV) 11.0 fL 6.7-11.0 IMMATURE GRANULOCYTE % (test code=IG%) 1.4 % 0.0-5.0 NUCLEATED RBC % (test code=NRBC%) 0.0 % 0-0 NEUTROPHIL # (test code=NT#) 7.37 K/mm3 1.8-7.7 IMMATURE GRANULOCYTE # (test code=IG#) 0.14 x10 3/uL 0-0.03 LYMPHOCYTE # (test code=LY#) 1.35 K/mm3 1.0-5.0 MONOCYTE # (test code=MO#) 0.58 K/mm3 0-0.8 EOSINOPHIL # (test code=EO#) 0.77 K/mm3 0.0-0.5 BASOPHIL # (test code=BA#) 0.03 K/mm3 0.0-0.2 NUCLEATED RBC # (test code=NRBC#) 0.00 K/mm3 0.0-0.1 MANUAL DIFF REQUIRED (test code=MDIFF) YES STAIN ACCEPTABILITY (test code=STN ACCEPTABLE) TOTAL CELLS COUNTED (test code=TCC) #CELLS SEGMENTED NEUTROPHILS (test code=SEG) % 39-69 LYMPHOCYTE (test code=LYMPH) % 25-55 MONOCYTE (test code=MON) % 0-10 EOSINOPHIL (test code=EOS) % 0.0-5.0 CABOT RINGS (test code=CAB) MORPHOLOGY COMMENT (test code=MOC) PLATELET ESTIMATE (test code=PLTEST) PLATELET MORPHOLOGY (test code=PLTMORPH) CBC W/MANUAL [id number] 05:24:00* Test Item Value Reference Range Comments WHITE BLOOD CELL (test code=WBC) 10.2 K/mm3 4.5-12.5 RED BLOOD CELL (test code=RBC) 3.32 mill/mm3 3.7-5.2 HEMOGLOBIN (test code=HGB) 9.1 gram/dL 11.5-15.5 HEMATOCRIT (test code=HCT) 30.1 % 36.0-46.0 MEAN CELL VOLUME (test code=MCV) 90.7 fL 80-98 MEAN CELL HGB (test code=MCH) 27.4 picogram 27.0-33.0 MEAN CELL HGB CONCETRATION (test code=MCHC) 30.2 gram/dL 33.0-36.0 RED CELL DISTRIBUTION WIDTH (test code=RDW) 16.6 % 11.6-16.2 RED CELL DISTRIBUTION WIDTH SD (test code=RDW-SD) 53.9 fL 37.0-51.0 PLATELET COUNT (test code=PLT) 193 K/mm3 150-450 MEAN PLATELET VOLUME (test code=MPV) 11.0 fL 6.7-11.0 IMMATURE GRANULOCYTE % (test code=IG%) 1.4 % 0.0-5.0 NUCLEATED RBC % (test code=NRBC%) 0.0 % 0-0 NEUTROPHIL # (test code=NT#) 7.37 K/mm3 1.8-7.7 IMMATURE GRANULOCYTE # (test code=IG#) 0.14 x10 3/uL 0-0.03 LYMPHOCYTE # (test code=LY#) 1.35 K/mm3 1.0-5.0 MONOCYTE # (test code=MO#) 0.58 K/mm3 0-0.8 EOSINOPHIL # (test code=EO#) 0.77 K/mm3 0.0-0.5 BASOPHIL # (test code=BA#) 0.03 K/mm3 0.0-0.2 NUCLEATED RBC # (test code=NRBC#) 0.00 K/mm3 0.0-0.1 MANUAL DIFF REQUIRED (test code=MDIFF) YES STAIN ACCEPTABILITY (test code=STN ACCEPTABLE) TOTAL CELLS COUNTED (test code=TCC) #CELLS SEGMENTED NEUTROPHILS (test code=SEG) % 39-69 LYMPHOCYTE (test code=LYMPH) % 25-55 MONOCYTE (test code=MON) % 0-10 EOSINOPHIL (test code=EOS) % 0.0-5.0 MORPHOLOGY COMMENT (test code=MOC) PLATELET ESTIMATE (test code=PLTEST) PLATELET MORPHOLOGY (test code=PLTMORPH) CBC W/MANUAL [id number] 05:24:00* Test Item Value Reference Range Comments WHITE BLOOD CELL (test code=WBC) 10.2 K/mm3 4.5-12.5 RED BLOOD CELL (test code=RBC) 3.32 mill/mm3 3.7-5.2 HEMOGLOBIN (test code=HGB) 9.1 gram/dL 11.5-15.5 HEMATOCRIT (test code=HCT) 30.1 % 36.0-46.0 MEAN CELL VOLUME (test code=MCV) 90.7 fL 80-98 MEAN CELL HGB (test code=MCH) 27.4 picogram 27.0-33.0 MEAN CELL HGB CONCETRATION (test code=MCHC) 30.2 gram/dL 33.0-36.0 RED CELL DISTRIBUTION WIDTH (test code=RDW) 16.6 % 11.6-16.2 RED CELL DISTRIBUTION WIDTH SD (test code=RDW-SD) 53.9 fL 37.0-51.0 PLATELET COUNT (test code=PLT) 193 K/mm3 150-450 MEAN PLATELET VOLUME (test code=MPV) 11.0 fL 6.7-11.0 IMMATURE GRANULOCYTE % (test code=IG%) 1.4 % 0.0-5.0 NUCLEATED RBC % (test code=NRBC%) 0.0 % 0-0 NEUTROPHIL # (test code=NT#) 7.37 K/mm3 1.8-7.7 IMMATURE GRANULOCYTE # (test code=IG#) 0.14 x10 3/uL 0-0.03 LYMPHOCYTE # (test code=LY#) 1.35 K/mm3 1.0-5.0 MONOCYTE # (test code=MO#) 0.58 K/mm3 0-0.8 EOSINOPHIL # (test code=EO#) 0.77 K/mm3 0.0-0.5 BASOPHIL # (test code=BA#) 0.03 K/mm3 0.0-0.2 NUCLEATED RBC # (test code=NRBC#) 0.00 K/mm3 0.0-0.1 MANUAL DIFF REQUIRED (test code=MDIFF) YES STAIN ACCEPTABILITY (test code=STN ACCEPTABLE) TOTAL CELLS COUNTED (test code=TCC) #CELLS SEGMENTED NEUTROPHILS (test code=SEG) % 39-69 LYMPHOCYTE (test code=LYMPH) % 25-55 MONOCYTE (test code=MON) % 0-10 MORPHOLOGY COMMENT (test code=MOC) PLATELET ESTIMATE (test code=PLTEST) PLATELET MORPHOLOGY (test code=PLTMORPH) CBC W/MANUAL [id number] 05:23:00* Test Item Value Reference Range Comments WHITE BLOOD CELL (test code=WBC) 10.2 K/mm3 4.5-12.5 RED BLOOD CELL (test code=RBC) 3.32 mill/mm3 3.7-5.2 HEMOGLOBIN (test code=HGB) 9.1 gram/dL 11.5-15.5 HEMATOCRIT (test code=HCT) 30.1 % 36.0-46.0 MEAN CELL VOLUME (test code=MCV) 90.7 fL 80-98 MEAN CELL HGB (test code=MCH) 27.4 picogram 27.0-33.0 MEAN CELL HGB CONCETRATION (test code=MCHC) 30.2 gram/dL 33.0-36.0 RED CELL DISTRIBUTION WIDTH (test code=RDW) 16.6 % 11.6-16.2 RED CELL DISTRIBUTION WIDTH SD (test code=RDW-SD) 53.9 fL 37.0-51.0 PLATELET COUNT (test code=PLT) 193 K/mm3 150-450 MEAN PLATELET VOLUME (test code=MPV) 11.0 fL 6.7-11.0 IMMATURE GRANULOCYTE % (test code=IG%) 1.4 % 0.0-5.0 NUCLEATED RBC % (test code=NRBC%) 0.0 % 0-0 NEUTROPHIL # (test code=NT#) 7.37 K/mm3 1.8-7.7 IMMATURE GRANULOCYTE # (test code=IG#) 0.14 x10 3/uL 0-0.03 LYMPHOCYTE # (test code=LY#) 1.35 K/mm3 1.0-5.0 MONOCYTE # (test code=MO#) 0.58 K/mm3 0-0.8 EOSINOPHIL # (test code=EO#) 0.77 K/mm3 0.0-0.5 BASOPHIL # (test code=BA#) 0.03 K/mm3 0.0-0.2 NUCLEATED RBC # (test code=NRBC#) 0.00 K/mm3 0.0-0.1 MANUAL DIFF REQUIRED (test code=MDIFF) YES STAIN ACCEPTABILITY (test code=STN ACCEPTABLE) TOTAL CELLS COUNTED (test code=TCC) #CELLS SEGMENTED NEUTROPHILS (test code=SEG) % 39-69 LYMPHOCYTE (test code=LYMPH) % 25-55 MONOCYTE (test code=MON) % 0-10 EOSINOPHIL (test code=EOS) % 0.0-5.0 CABOT RINGS (test code=CAB) MORPHOLOGY COMMENT (test code=MOC) PLATELET ESTIMATE (test code=PLTEST) PLATELET MORPHOLOGY (test code=PLTMORPH) CBC W/MANUAL [id number] 05:23:00* Test Item Value Reference Range Comments WHITE BLOOD CELL (test code=WBC) 10.2 K/mm3 4.5-12.5 RED BLOOD CELL (test code=RBC) 3.32 mill/mm3 3.7-5.2 HEMOGLOBIN (test code=HGB) 9.1 gram/dL 11.5-15.5 HEMATOCRIT (test code=HCT) 30.1 % 36.0-46.0 MEAN CELL VOLUME (test code=MCV) 90.7 fL 80-98 MEAN CELL HGB (test code=MCH) 27.4 picogram 27.0-33.0 MEAN CELL HGB CONCETRATION (test code=MCHC) 30.2 gram/dL 33.0-36.0 RED CELL DISTRIBUTION WIDTH (test code=RDW) 16.6 % 11.6-16.2 RED CELL DISTRIBUTION WIDTH SD (test code=RDW-SD) 53.9 fL 37.0-51.0 PLATELET COUNT (test code=PLT) 193 K/mm3 150-450 MEAN PLATELET VOLUME (test code=MPV) 11.0 fL 6.7-11.0 IMMATURE GRANULOCYTE % (test code=IG%) 1.4 % 0.0-5.0 NUCLEATED RBC % (test code=NRBC%) 0.0 % 0-0 NEUTROPHIL # (test code=NT#) 7.37 K/mm3 1.8-7.7 IMMATURE GRANULOCYTE # (test code=IG#) 0.14 x10 3/uL 0-0.03 LYMPHOCYTE # (test code=LY#) 1.35 K/mm3 1.0-5.0 MONOCYTE # (test code=MO#) 0.58 K/mm3 0-0.8 EOSINOPHIL # (test code=EO#) 0.77 K/mm3 0.0-0.5 BASOPHIL # (test code=BA#) 0.03 K/mm3 0.0-0.2 NUCLEATED RBC # (test code=NRBC#) 0.00 K/mm3 0.0-0.1 MANUAL DIFF REQUIRED (test code=MDIFF) YES STAIN ACCEPTABILITY (test code=STN ACCEPTABLE) TOTAL CELLS COUNTED (test code=TCC) #CELLS SEGMENTED NEUTROPHILS (test code=SEG) % 39-69 LYMPHOCYTE (test code=LYMPH) % 25-55 MONOCYTE (test code=MON) % 0-10 EOSINOPHIL (test code=EOS) % 0.0-5.0 CABOT RINGS (test code=CAB) MORPHOLOGY COMMENT (test code=MOC) PLATELET ESTIMATE (test code=PLTEST) PLATELET MORPHOLOGY (test code=PLTMORPH) [id number] 21:19:00* Test Item Value Reference Range Comments GLUBED (test code=GLUBED) 138 mg/dL 74-106 Performed by certified glazing machine operator at [facility] [id number] 16:58:00* Test Item Value Reference Range Comments GLUBED (test code=GLUBED) 209 mg/dL 74-106 Performed by certified glazing machine operator at [facility] [id number] 12:43:00* Test Item Value Reference Range Comments GLUBED (test code=GLUBED) 160 mg/dL 74-106 Performed by certified glazing machine operator at [facility] COMPREHENSIVE METABOLIC [id number] 08:29:00* Test Item Value Reference Range Comments SODIUM (test code=NA) 134 mmol/L 136-145 POTASSIUM (test code=K) 5.6 mmol/L 3.5-5.1 CHLORIDE (test code=CL) 96.0 mmol/L 98-107 CARBON DIOXIDE (test code=CO2) 26.0 mmol/L 21-32 ANION GAP (test code=GAP) 17.6 10-20 GLUCOSE (test code=GLU) 449 mg/dL 74-106 BLOOD UREA NITROGEN (test code=BUN) 42 mg/dL 7-18 GLOMERULAR FILTRATION RATE (test code=GFR) 25 mL/min >=60 Estimated GFR by using Modified MDRD formula.Chronic kidney disease is defined as either kidney damageor GFR <60 mL/min/1.73 m2 for >3 months. CREATININE (test code=CREAT) 2.00 mg/dL 0.55-1.02 Note change in reference range due to change in reagent. BUN/CREATININE RATIO (test code=BUN/CREA) 21.0 10-20 TOTAL PROTEIN (test code=PROT) 5.7 gram/dL 6.4-8.2 ALBUMIN (test code=ALB) 1.8 g/dL 3.4-5.0 GLOBULIN (test code=GLOB) 3.9 gram/dL 2.7-4.2 ALBUMIN/GLOBULIN RATIO (test code=A/G) 0.5 0.75-1.50 CALCIUM (test code=CA) 8.0 mg/dL 8.5-10.1 BILIRUBIN TOTAL (test code=BILT) 0.30 mg/dL 0.0-1.0 SGOT/AST (test code=AST) 17 IUnit/L 15-37 SGPT/ALT (test code=ALT) 7 IUnit/L 12-78 ALKALINE PHOSPHATASE TOTAL (test code=ALKP) 105 IUnit/L 45-117 Note change in reference range due to change in reagent. COMPREHENSIVE METABOLIC [id number] 08:19:00* Test Item Value Reference Range Comments SODIUM (test code=NA) 134 mmol/L 136-145 POTASSIUM (test code=K) 5.6 mmol/L 3.5-5.1 CHLORIDE (test code=CL) 96.0 mmol/L 98-107 CARBON DIOXIDE (test code=CO2) mmol/L 21-32 ANION GAP (test code=GAP) 10-20 GLUCOSE (test code=GLU) mg/dL 74-106 BLOOD UREA NITROGEN (test code=BUN) mg/dL 7-18 GLOMERULAR FILTRATION RATE (test code=GFR) mL/min >=60 CREATININE (test code=CREAT) mg/dL 0.55-1.02 BUN/CREATININE RATIO (test code=BUN/CREA) 10-20 TOTAL PROTEIN (test code=PROT) gram/dL 6.4-8.2 ALBUMIN (test code=ALB) g/dL 3.4-5.0 GLOBULIN (test code=GLOB) gram/dL 2.7-4.2 ALBUMIN/GLOBULIN RATIO (test code=A/G) 0.75-1.50 CALCIUM (test code=CA) mg/dL 8.5-10.1 BILIRUBIN TOTAL (test code=BILT) mg/dL 0.0-1.0 SGOT/AST (test code=AST) IUnit/L 15-37 SGPT/ALT (test code=ALT) IUnit/L 12-78 ALKALINE PHOSPHATASE TOTAL (test code=ALKP) IUnit/L 45-117 [id number] 08:07:00* Test Item Value Reference Range Comments GLUBED (test code=GLUBED) 168 mg/dL 74-106 Performed by certified glazing machine operator at [facility] [id number] 21:23:00* Test Item Value Reference Range Comments GLUBED (test code=GLUBED) 138 mg/dL 74-106 Performed by certified glazing machine operator at [facility] [id number] 16:24:00* Test Item Value Reference Range Comments GLUBED (test code=GLUBED) 121 mg/dL 74-106 Performed by certified glazing machine operator at [facility] [id number] 11:35:00* Test Item Value Reference Range Comments GLUBED (test code=GLUBED) 192 mg/dL 74-106 Performed by certified glazing machine operator at [facility] BASIC METABOLIC [id number] 08:44:00* Test Item Value Reference Range Comments SODIUM (test code=NA) 137 mmol/L 136-145 POTASSIUM (test code=K) 4.4 mmol/L 3.5-5.1 CHLORIDE (test code=CL) 102.0 mmol/L 98-107 CARBON DIOXIDE (test code=CO2) 29.0 mmol/L 21-32 ANION GAP (test code=GAP) 10.4 10-20 GLUCOSE (test code=GLU) 177 mg/dL 74-106 BLOOD UREA NITROGEN (test code=BUN) 37 mg/dL 7-18 GLOMERULAR FILTRATION RATE (test code=GFR) 26 mL/min >=60 Estimated GFR by using Modified MDRD formula.Chronic kidney disease is defined as either kidney damageor GFR <60 mL/min/1.73 m2 for >3 months. CREATININE (test code=CREAT) 1.90 mg/dL 0.55-1.02 Note change in reference range due to change in reagent. BUN/CREATININE RATIO (test code=BUN/CREA) 19.5 10-20 CALCIUM (test code=CA) 8.3 mg/dL 8.5-10.1 [id number] 08:44:00* Test Item Value Reference Range Comments PHOSPHORUS (test code=PHOS) 4.4 mg/dL 2.5-4.9 [id number] 08:44:00* Test Item Value Reference Range Comments MAGNESIUM (test code=MAG) 1.4 mg/dL 1.8-2.4 CBC W/AUTO [id number] 08:19:00* Test Item Value Reference Range Comments WHITE BLOOD CELL (test code=WBC) 12.0 K/mm3 4.5-12.5 RED BLOOD CELL (test code=RBC) 3.94 mill/mm3 3.7-5.2 HEMOGLOBIN (test code=HGB) 11.0 gram/dL 11.5-15.5 HEMATOCRIT (test code=HCT) 34.2 % 36.0-46.0 MEAN CELL VOLUME (test code=MCV) 86.8 fL 80-98 MEAN CELL HGB (test code=MCH) 27.9 picogram 27.0-33.0 MEAN CELL HGB CONCETRATION (test code=MCHC) 32.2 gram/dL 33.0-36.0 RED CELL DISTRIBUTION WIDTH (test code=RDW) 16.8 % 11.6-16.2 RED CELL DISTRIBUTION WIDTH SD (test code=RDW-SD) 52.4 fL 37.0-51.0 PLATELET COUNT (test code=PLT) 194 K/mm3 150-450 MEAN PLATELET VOLUME (test code=MPV) 10.8 fL 6.7-11.0 NEUTROPHIL % (test code=NT%) 74.2 % 39.0-69.0 IMMATURE GRANULOCYTE % (test code=IG%) 1.7 % 0.0-5.0 LYMPHOCYTE % (test code=LY%) 11.7 % 25.0-55.0 MONOCYTE % (test code=MO%) 7.3 % 0.0-10.0 EOSINOPHIL % (test code=EO%) 4.8 % 0.0-5.0 BASOPHIL % (test code=BA%) 0.3 % 0.0-1.0 NUCLEATED RBC % (test code=NRBC%) 0.0 % 0-0 NEUTROPHIL # (test code=NT#) 8.90 K/mm3 1.8-7.7 IMMATURE GRANULOCYTE # (test code=IG#) 0.21 x10 3/uL 0-0.03 LYMPHOCYTE # (test code=LY#) 1.41 K/mm3 1.0-5.0 MONOCYTE # (test code=MO#) 0.88 K/mm3 0-0.8 EOSINOPHIL # (test code=EO#) 0.58 K/mm3 0.0-0.5 BASOPHIL # (test code=BA#) 0.04 K/mm3 0.0-0.2 NUCLEATED RBC # (test code=NRBC#) 0.00 K/mm3 0.0-0.1 MANUAL DIFF REQUIRED (test code=MDIFF) NO [id number] 21:06:00* Test Item Value Reference Range Comments GLUBED (test code=GLUBED) 99 mg/dL 74-106 Performed by certified glazing machine operator at [facility] [id number] 16:46:00* Test Item Value Reference Range Comments GLUBED (test code=GLUBED) 207 mg/dL 74-106 Performed by certified glazing machine operator at [facility] [id number] 16:20:00* Test Item Value Reference Range Comments GLUBED (test code=GLUBED) 64 mg/dL 74-106 Performed by certified glazing machine operator at [facility] - SP FLUORO GUID CTRL ACC [id number] 15:24:00 Name: RASJOSÉ MIGUEL PARISNANDEZ [facility] : 1950 Age/S: 67 / F [address] Unit #: [id number] Loc: MARKIE Rojas [address] Phys: Kameron Vences MD Acct: [id number] Dis Date: Status: PRE IN PHONE #: [phone] Exam Date: 05/15/2018 1054 FAX #: [phone] Reason: EXAMS: CPT CODE: [id number] SP FLUORO GUID CTRL ACC DEV 62109 Fluoro Time: 36 DAP (Gy m2): 2470 Air Kerma (mGy): 9.48 EXAM: Insertion of a temporary hemodialysis catheter with sonographic and fluoroscopic guidance; conscious sedation; INFORMATION: Renal failure; partial small bowel resection; 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 The patient has a 6 Citizen [place] dual-lumen tunneled left IJ central line in place. TECHNIQUE AND FINDINGS: Conscious sedation start time: 1030 hours; Completion time: 1054 hours; Under physician supervision 1 mg of Versed and 1 mg of Dilaudid were admi nistered intravenously for conscious sedation. The patient's heart rate, b lood pressure and pulse oximetry were continuously monitored by a trained registered nurse. Physician [id number] sedation time was 21 minutes. Informed consent was obtained and the patient was placed supine on the procedure table. Initial fluoroscopic evaluation showed the tip of the pre viously placed tunneled central line positioned in the right brachiocephal ic vein. Sonographic evaluation of the left neck region showed a patent an d compressible left IJ. Sonographic images were stored in PACS. The patient's skin in the left neck region was prepped and draped in usual mehrdad rile fashion. Xylocaine was administered and using sonographic guidance th e left IJ was accessed with a micropuncture system, followed by insertion of an 035 guidewire. The wire was advanced into the right atrium and under fluoroscopic guidance sequential dilatation was performed followed by ins ertion of a 13 Citizen [place] triple-lumen temporary hemodialysis catheter. The ti p of this catheter was positioned in the right atrium. Good blood return w as noticed. Incidentally, insertion of the temporary dialysis cathet er also repositioned the tip of the small bore tunneled central line in th e SVC, as demonstrated by a final fluoroscopic evaluation. The tunne l and was sutured to the skin and flushed with heparinized saline. N o complications. IMPRESSION: Successful insertion of a t riple lumen temporary hemodialysis catheter via left IJ access, using so nographic and fluoroscopic guidance. Fluoroscopy Time: 36 sec CAK : 9.48 mGy DAP : 2470 mGy sq cm PAGE 1 Signed Report (CONTINUED) Name: RASJOSÉ MIGUEL PARISNANDEZ [facility] : 1950 Age/S: 67 / F [address] Unit #: [id number] Loc: MARKIE Rojas [address] Phys: Kameron Vences MD Acct: [id number] Dis Date: Status: PRE IN PHONE #: [phone] Exam Date: 05/15/2018 1054 FAX #: [phone] Reason: EXAMS: CPT CODE: [id number] SP FLUORO GUID CTRL ACC DEV 75702 Fluoro Time: 36 DAP (Gy m2): 2470 Air Kerma (mGy): 9.48 <Continued> at 1524 Reported and signed by: Elmer Harman M.D. CC: Technologist: GWYN KHAN RT(R) Trnscb Date/Time: 05/18/2018 (7154) t.GRW Orig Print D/T: S: 05/18/2018 (5035) PAGE 2 Signed Report - [facility] [id number] 15:24:00 Name: JOSÉ MIGUEL MCGINNIS [facility] : 1950 Age/S: 67 / F [address] Unit #: [id number] Loc: MARKIE Rojas [address] Phys: Kameron Vences MD Acct: [id number] Dis Date: Status: PRE IN PHONE #: [phone] Exam Date: 05/15/2018 1054 FAX #: [phone] Reason: EXAMS: CPT CODE: [id number] [facility] ACCESS 24124 Fluoro Time: 0 DAP (Gy m2): 0 Air Kerma (mGy): 0 EXAM: Insertion of a temporary hemodialysis catheter with sonographic and fluoroscopic guidance; conscious sedation; INFORMATION: Renal failure; partial small bowel resection; 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 The patient has a 6 Citizen [place] dual-lumen tunneled left IJ central line in place. TECHNIQUE AND FINDINGS: Conscious sedation start time: 1030 hours; Completion time: 1054 hours; Under physician supervision 1 mg of Versed and 1 mg of Dilaudid were admi nistered intravenously for conscious sedation. The patient's heart rate, b lood pressure and pulse oximetry were continuously monitored by a trained registered nurse. Physician hmhk-mk-xluu sedation time was 21 minutes. Informed consent was obtained and the patient was placed supine on the procedure table. Initial fluoroscopic evaluation showed the tip of the pre viously placed tunneled central line positioned in the right brachiocephal ic vein. Sonographic evaluation of the left neck region showed a patent an d compressible left IJ. Sonographic images were stored in PACS. The patient's skin in the left neck region was prepped and draped in usual mehrdad rile fashion. Xylocaine was administered and using sonographic guidance th e left IJ was accessed with a micropuncture system, followed by insertion of an 035 guidewire. The wire was advanced into the right atrium and under fluoroscopic guidance sequential dilatation was performed followed by ins ertion of a 13 Citizen [place] triple-lumen temporary hemodialysis catheter. The ti p of this catheter was positioned in the right atrium. Good blood return w as noticed. Incidentally, insertion of the temporary dialysis cathet er also repositioned the tip of the small bore tunneled central line in th e SVC, as demonstrated by a final fluoroscopic evaluation. The tunne l and was sutured to the skin and flushed with heparinized saline. N o complications. IMPRESSION: Successful insertion of a t riple lumen temporary hemodialysis catheter via left IJ access, using so nographic and fluoroscopic guidance. Fluoroscopy Time: 36 sec CAK : 9.48 mGy DAP : 2470 mGy sq cm PAGE 1 Signed Report (CONTINUED) Name: JOSÉ MIGUEL MCGINNIS [facility] : 1950 Age/S: 67 / F [address] [facility] Unit #: [id number] Loc: MARKIE Rojas [address] Phys: Kameron Vences MD Acct: [id number] Dis Date: Status: PRE IN PHONE #: [phone] Exam Date: 05/15/2018 1054 FAX #: [phone] Reason: EXAMS: CPT CODE: [id number] [facility]ANCE [facility] ACCESS 10598 Fluoro Time: 0 DAP (Gy m2): 0 Air Kerma (mGy): 0 <Continued> at 1524 Reported and signed by: Elmer Harman M.D. CC: Technologist: GWYN PAUL(R) Trnscb Date/Time: 05/18/2018 (152) Lauren Orig Print D/T: S: 05/18/2018 (6854) PAGE 2 Signed Report [id number] 11:09:00* Test Item Value Reference Range Comments GLUBED (test code=GLUBED) 85 mg/dL 74-106 Performed by certified glazing machine operator at [facility] [id number] 07:57:00* Test Item Value Reference Range Comments GLUBED (test code=GLUBED) 100 mg/dL 74-106 Performed by certified glazing machine operator at [facility] COMPREHENSIVE METABOLIC [id number] 06:43:00* Test Item Value Reference Range Comments SODIUM (test code=NA) 139 mmol/L 136-145 POTASSIUM (test code=K) 3.7 mmol/L 3.5-5.1 CHLORIDE (test code=CL) 102.0 mmol/L 98-107 CARBON DIOXIDE (test code=CO2) 28.0 mmol/L 21-32 ANION GAP (test code=GAP) 12.7 10-20 GLUCOSE (test code=GLU) 79 mg/dL 74-106 BLOOD UREA NITROGEN (test code=BUN) 27 mg/dL 7-18 RESULT VERIFIED BY REPEAT ANALYSIS GLOMERULAR FILTRATION RATE (test code=GFR) 26 mL/min >=60 Estimated GFR by using Modified MDRD formula.Chronic kidney disease is defined as either kidney damageor GFR <60 mL/min/1.73 m2 for >3 months. CREATININE (test code=CREAT) 1.90 mg/dL 0.55-1.02 Note change in reference range due to change in reagent. BUN/CREATININE RATIO (test code=BUN/CREA) 14.2 10-20 TOTAL PROTEIN (test code=PROT) 6.0 gram/dL 6.4-8.2 ALBUMIN (test code=ALB) 2.1 g/dL 3.4-5.0 GLOBULIN (test code=GLOB) 3.9 gram/dL 2.7-4.2 ALBUMIN/GLOBULIN RATIO (test code=A/G) 0.5 0.75-1.50 CALCIUM (test code=CA) 8.2 mg/dL 8.5-10.1 BILIRUBIN TOTAL (test code=BILT) 0.40 mg/dL 0.0-1.0 SGOT/AST (test code=AST) 14 IUnit/L 15-37 SGPT/ALT (test code=ALT) 6 IUnit/L 12-78 RESULT VERIFIED BY REPEAT ANALYSIS ALKALINE PHOSPHATASE TOTAL (test code=ALKP) 94 IUnit/L 45-117 Note change in reference range due to change in reagent. [id number] 06:21:00* Test Item Value Reference Range Comments GLUBED (test code=GLUBED) 107 mg/dL 74-106 Performed by certified glazing machine operator at [facility] [id number] 06:21:00* Test Item Value Reference Range Comments GLUBED (test code=GLUBED) 66 mg/dL 74-106 Performed by certified glazing machine operator at [facility] COMPREHENSIVE METABOLIC [id number] 06:15:00* Test Item Value Reference Range Comments SODIUM (test code=NA) 139 mmol/L 136-145 POTASSIUM (test code=K) 3.7 mmol/L 3.5-5.1 CHLORIDE (test code=CL) 102.0 mmol/L 98-107 CARBON DIOXIDE (test code=CO2) mmol/L 21-32 ANION GAP (test code=GAP) 10-20 GLUCOSE (test code=GLU) mg/dL 74-106 BLOOD UREA NITROGEN (test code=BUN) mg/dL 7-18 GLOMERULAR FILTRATION RATE (test code=GFR) mL/min >=60 CREATININE (test code=CREAT) mg/dL 0.55-1.02 BUN/CREATININE RATIO (test code=BUN/CREA) 10-20 TOTAL PROTEIN (test code=PROT) gram/dL 6.4-8.2 ALBUMIN (test code=ALB) g/dL 3.4-5.0 GLOBULIN (test code=GLOB) gram/dL 2.7-4.2 ALBUMIN/GLOBULIN RATIO (test code=A/G) 0.75-1.50 CALCIUM (test code=CA) mg/dL 8.5-10.1 BILIRUBIN TOTAL (test code=BILT) mg/dL 0.0-1.0 SGOT/AST (test code=AST) IUnit/L 15-37 SGPT/ALT (test code=ALT) IUnit/L 12-78 ALKALINE PHOSPHATASE TOTAL (test code=ALKP) IUnit/L 45-117 CBC W/AUTO [id number] 06:08:00* Test Item Value Reference Range Comments WHITE BLOOD CELL (test code=WBC) 10.9 K/mm3 4.5-12.5 RED BLOOD CELL (test code=RBC) 3.70 mill/mm3 3.7-5.2 HEMOGLOBIN (test code=HGB) 10.4 gram/dL 11.5-15.5 RESULT VERIFIED BY REPEAT ANALYSIS HEMATOCRIT (test code=HCT) 32.3 % 36.0-46.0 MEAN CELL VOLUME (test code=MCV) 87.3 fL 80-98 MEAN CELL HGB (test code=MCH) 28.1 picogram 27.0-33.0 MEAN CELL HGB CONCETRATION (test code=MCHC) 32.2 gram/dL 33.0-36.0 RED CELL DISTRIBUTION WIDTH (test code=RDW) 17.2 % 11.6-16.2 RED CELL DISTRIBUTION WIDTH SD (test code=RDW-SD) 54.7 fL 37.0-51.0 PLATELET COUNT (test code=PLT) 151 K/mm3 150-450 MEAN PLATELET VOLUME (test code=MPV) 10.5 fL 6.7-11.0 NEUTROPHIL % (test code=NT%) 70.2 % 39.0-69.0 IMMATURE GRANULOCYTE % (test code=IG%) 1.5 % 0.0-5.0 LYMPHOCYTE % (test code=LY%) 11.8 % 25.0-55.0 MONOCYTE % (test code=MO%) 9.0 % 0.0-10.0 EOSINOPHIL % (test code=EO%) 7.2 % 0.0-5.0 BASOPHIL % (test code=BA%) 0.3 % 0.0-1.0 NUCLEATED RBC % (test code=NRBC%) 0.0 % 0-0 NEUTROPHIL # (test code=NT#) 7.65 K/mm3 1.8-7.7 IMMATURE GRANULOCYTE # (test code=IG#) 0.16 x10 3/uL 0-0.03 LYMPHOCYTE # (test code=LY#) 1.29 K/mm3 1.0-5.0 MONOCYTE # (test code=MO#) 0.98 K/mm3 0-0.8 EOSINOPHIL # (test code=EO#) 0.78 K/mm3 0.0-0.5 BASOPHIL # (test code=BA#) 0.03 K/mm3 0.0-0.2 NUCLEATED RBC # (test code=NRBC#) 0.00 K/mm3 0.0-0.1 [id number] 21:19:00* Test Item Value Reference Range Comments GLUBED (test code=GLUBED) 152 mg/dL 74-106 Performed by certified glazing machine operator at [facility] [id number] 21:19:00* Test Item Value Reference Range Comments GLUBED (test code=GLUBED) 49 mg/dL 74-106 Performed by certified glazing machine operator at [facility] [id number] 16:36:00* Test Item Value Reference Range Comments GLUBED (test code=GLUBED) 83 mg/dL 74-106 Performed by certified glazing machine operator at [facility] [id number] 12:25:00* Test Item Value Reference Range Comments GLUBED (test code=GLUBED) 188 mg/dL 74-106 Performed by certified glazing machine operator at [facility] [id number] 07:55:00* Test Item Value Reference Range Comments GLUBED (test code=GLUBED) 203 mg/dL 74-106 Performed by certified glazing machine operator at [facility] COMPREHENSIVE METABOLIC [id number] 07:55:00* Test Item Value Reference Range Comments SODIUM (test code=NA) 141 mmol/L 136-145 POTASSIUM (test code=K) 3.6 mmol/L 3.5-5.1 CHLORIDE (test code=CL) 105.0 mmol/L 98-107 CARBON DIOXIDE (test code=CO2) 30.0 mmol/L 21-32 ANION GAP (test code=GAP) 9.6 10-20 GLUCOSE (test code=GLU) 191 mg/dL 74-106 BLOOD UREA NITROGEN (test code=BUN) 16 mg/dL 7-18 GLOMERULAR FILTRATION RATE (test code=GFR) 32 mL/min >=60 Estimated GFR by using Modified MDRD formula.Chronic kidney disease is defined as either kidney damageor GFR <60 mL/min/1.73 m2 for >3 months. CREATININE (test code=CREAT) 1.60 mg/dL 0.55-1.02 Note change in reference range due to change in reagent. BUN/CREATININE RATIO (test code=BUN/CREA) 10.0 10-20 TOTAL PROTEIN (test code=PROT) 5.0 gram/dL 6.4-8.2 ALBUMIN (test code=ALB) 2.0 g/dL 3.4-5.0 GLOBULIN (test code=GLOB) 3.0 gram/dL 2.7-4.2 ALBUMIN/GLOBULIN RATIO (test code=A/G) 0.7 0.75-1.50 CALCIUM (test code=CA) 7.8 mg/dL 8.5-10.1 BILIRUBIN TOTAL (test code=BILT) 0.40 mg/dL 0.0-1.0 SGOT/AST (test code=AST) 10 IUnit/L 15-37 SGPT/ALT (test code=ALT) 8 IUnit/L 12-78 ALKALINE PHOSPHATASE TOTAL (test code=ALKP) 69 IUnit/L 45-117 Note change in reference range due to change in reagent. [id number] 07:55:00* Test Item Value Reference Range Comments PHOSPHORUS (test code=PHOS) 2.2 mg/dL 2.5-4.9 [id number] 07:55:00* Test Item Value Reference Range Comments MAGNESIUM (test code=MAG) 1.7 mg/dL 1.8-2.4 CBC W/AUTO [id number] 07:16:00* Test Item Value Reference Range Comments WHITE BLOOD CELL (test code=WBC) 8.6 K/mm3 4.5-12.5 RED BLOOD CELL (test code=RBC) 2.46 mill/mm3 3.7-5.2 HEMOGLOBIN (test code=HGB) 7.2 gram/dL 11.5-15.5 HEMATOCRIT (test code=HCT) 22.4 % 36.0-46.0 MEAN CELL VOLUME (test code=MCV) 91.1 fL 80-98 MEAN CELL HGB (test code=MCH) 29.3 picogram 27.0-33.0 MEAN CELL HGB CONCETRATION (test code=MCHC) 32.1 gram/dL 33.0-36.0 RED CELL DISTRIBUTION WIDTH (test code=RDW) 16.7 % 11.6-16.2 RED CELL DISTRIBUTION WIDTH SD (test code=RDW-SD) 56.1 fL 37.0-51.0 PLATELET COUNT (test code=PLT) 150 K/mm3 150-450 MEAN PLATELET VOLUME (test code=MPV) 11.3 fL 6.7-11.0 NEUTROPHIL % (test code=NT%) 74.3 % 39.0-69.0 IMMATURE GRANULOCYTE % (test code=IG%) 0.7 % 0.0-5.0 LYMPHOCYTE % (test code=LY%) 9.6 % 25.0-55.0 MONOCYTE % (test code=MO%) 8.8 % 0.0-10.0 EOSINOPHIL % (test code=EO%) 6.5 % 0.0-5.0 BASOPHIL % (test code=BA%) 0.1 % 0.0-1.0 NUCLEATED RBC % (test code=NRBC%) 0.0 % 0-0 NEUTROPHIL # (test code=NT#) 6.35 K/mm3 1.8-7.7 IMMATURE GRANULOCYTE # (test code=IG#) 0.06 x10 3/uL 0-0.03 LYMPHOCYTE # (test code=LY#) 0.82 K/mm3 1.0-5.0 MONOCYTE # (test code=MO#) 0.75 K/mm3 0-0.8 EOSINOPHIL # (test code=EO#) 0.56 K/mm3 0.0-0.5 BASOPHIL # (test code=BA#) 0.01 K/mm3 0.0-0.2 NUCLEATED RBC # (test code=NRBC#) 0.00 K/mm3 0.0-0.1 MANUAL DIFF REQUIRED (test code=MDIFF) NO [id number] 22:34:00* Test Item Value Reference Range Comments GLUBED (test code=GLUBED) 173 mg/dL 74-106 Performed by certified glazing machine operator at [facility] [id number] 17:54:00* Test Item Value Reference Range Comments GLUBED (test code=GLUBED) 117 mg/dL 74-106 Performed by certified glazing machine operator at [facility] [id number] 12:17:00* Test Item Value Reference Range Comments GLUBED (test code=GLUBED) 106 mg/dL 74-106 Performed by certified glazing machine operator at [facility] [id number] 09:18:00* Test Item Value Reference Range Comments GLUBED (test code=GLUBED) 104 mg/dL 74-106 Performed by certified glazing machine operator at [facility] COMPREHENSIVE METABOLIC [id number] 08:21:00* Test Item Value Reference Range Comments SODIUM (test code=NA) 141 mmol/L 136-145 RESULT VERIFIED BY REPEAT ANALYSIS POTASSIUM (test code=K) 3.1 mmol/L 3.5-5.1 CHLORIDE (test code=CL) 106.0 mmol/L 98-107 CARBON DIOXIDE (test code=CO2) 27.0 mmol/L 21-32 Previously reported result: 27.0 mmol/LEdited by: V.LAB.LDB on 19:0821 ANION GAP (test code=GAP) 11.1 10-20 GLUCOSE (test code=GLU) 112 mg/dL 74-106 BLOOD UREA NITROGEN (test code=BUN) 25 mg/dL 7-18 RESULT VERIFIED BY REPEAT ANALYSIS GLOMERULAR FILTRATION RATE (test code=GFR) 18 mL/min >=60 Estimated GFR by using Modified MDRD formula.Chronic kidney disease is defined as either kidney damageor GFR <60 mL/min/1.73 m2 for >3 months. CREATININE (test code=CREAT) 2.60 mg/dL 0.55-1.02 Note change in reference range due to change in reagent. BUN/CREATININE RATIO (test code=BUN/CREA) 9.6 10-20 TOTAL PROTEIN (test code=PROT) 6.0 gram/dL 6.4-8.2 ALBUMIN (test code=ALB) 2.2 g/dL 3.4-5.0 GLOBULIN (test code=GLOB) 3.8 gram/dL 2.7-4.2 ALBUMIN/GLOBULIN RATIO (test code=A/G) 0.6 0.75-1.50 CALCIUM (test code=CA) 8.0 mg/dL 8.5-10.1 BILIRUBIN TOTAL (test code=BILT) 0.40 mg/dL 0.0-1.0 SGOT/AST (test code=AST) 13 IUnit/L 15-37 SGPT/ALT (test code=ALT) 10 IUnit/L 12-78 ALKALINE PHOSPHATASE TOTAL (test code=ALKP) 77 IUnit/L 45-117 Note change in reference range due to change in reagent. [id number] 08:21:00* Test Item Value Reference Range Comments PHOSPHORUS (test code=PHOS) 1.6 mg/dL 2.5-4.9 [id number] 08:21:00* Test Item Value Reference Range Comments MAGNESIUM (test code=MAG) 1.7 mg/dL 1.8-2.4 COMPREHENSIVE METABOLIC [id number] 07:42:00* Test Item Value Reference Range Comments SODIUM (test code=NA) 141 mmol/L 136-145 RESULT VERIFIED BY REPEAT ANALYSIS POTASSIUM (test code=K) 3.1 mmol/L 3.5-5.1 CHLORIDE (test code=CL) 106.0 mmol/L 98-107 CARBON DIOXIDE (test code=CO2) 27.0 mmol/L 21-32 ANION GAP (test code=GAP) 10-20 GLUCOSE (test code=GLU) 112 mg/dL 74-106 BLOOD UREA NITROGEN (test code=BUN) 25 mg/dL 7-18 RESULT VERIFIED BY REPEAT ANALYSIS GLOMERULAR FILTRATION RATE (test code=GFR) 18 mL/min >=60 Estimated GFR by using Modified MDRD formula.Chronic kidney disease is defined as either kidney damageor GFR <60 mL/min/1.73 m2 for >3 months. CREATININE (test code=CREAT) 2.60 mg/dL 0.55-1.02 Note change in reference range due to change in reagent. BUN/CREATININE RATIO (test code=BUN/CREA) 9.6 10-20 TOTAL PROTEIN (test code=PROT) 6.0 gram/dL 6.4-8.2 ALBUMIN (test code=ALB) 2.2 g/dL 3.4-5.0 GLOBULIN (test code=GLOB) 3.8 gram/dL 2.7-4.2 ALBUMIN/GLOBULIN RATIO (test code=A/G) 0.6 0.75-1.50 CALCIUM (test code=CA) 8.0 mg/dL 8.5-10.1 BILIRUBIN TOTAL (test code=BILT) 0.40 mg/dL 0.0-1.0 SGOT/AST (test code=AST) 13 IUnit/L 15-37 SGPT/ALT (test code=ALT) 10 IUnit/L 12-78 ALKALINE PHOSPHATASE TOTAL (test code=ALKP) 77 IUnit/L 45-117 Note change in reference range due to change in reagent. [id number] 07:42:00* Test Item Value Reference Range Comments PHOSPHORUS (test code=PHOS) 1.6 mg/dL 2.5-4.9 [id number] 07:42:00* Test Item Value Reference Range Comments MAGNESIUM (test code=MAG) 1.7 mg/dL 1.8-2.4 COMPREHENSIVE METABOLIC [id number] 07:40:00* Test Item Value Reference Range Comments SODIUM (test code=NA) 141 mmol/L 136-145 RESULT VERIFIED BY REPEAT ANALYSIS POTASSIUM (test code=K) 3.1 mmol/L 3.5-5.1 CHLORIDE (test code=CL) 106.0 mmol/L 98-107 CARBON DIOXIDE (test code=CO2) mmol/L 21-32 ANION GAP (test code=GAP) 10-20 GLUCOSE (test code=GLU) mg/dL 74-106 BLOOD UREA NITROGEN (test code=BUN) mg/dL 7-18 GLOMERULAR FILTRATION RATE (test code=GFR) mL/min >=60 CREATININE (test code=CREAT) mg/dL 0.55-1.02 BUN/CREATININE RATIO (test code=BUN/CREA) 10-20 TOTAL PROTEIN (test code=PROT) gram/dL 6.4-8.2 ALBUMIN (test code=ALB) g/dL 3.4-5.0 GLOBULIN (test code=GLOB) gram/dL 2.7-4.2 ALBUMIN/GLOBULIN RATIO (test code=A/G) 0.75-1.50 CALCIUM (test code=CA) mg/dL 8.5-10.1 BILIRUBIN TOTAL (test code=BILT) mg/dL 0.0-1.0 SGOT/AST (test code=AST) IUnit/L 15-37 SGPT/ALT (test code=ALT) IUnit/L 12-78 ALKALINE PHOSPHATASE TOTAL (test code=ALKP) IUnit/L 45-117 [id number] 07:40:00* Test Item Value Reference Range Comments PHOSPHORUS (test code=PHOS) mg/dL 2.5-4.9 [id number] 07:40:00* Test Item Value Reference Range Comments MAGNESIUM (test code=MAG) mg/dL 1.8-2.4 CBC W/AUTO [id number] 06:58:00* Test Item Value Reference Range Comments WHITE BLOOD CELL (test code=WBC) 12.7 K/mm3 4.5-12.5 RED BLOOD CELL (test code=RBC) 2.67 mill/mm3 3.7-5.2 HEMOGLOBIN (test code=HGB) 7.5 gram/dL 11.5-15.5 HEMATOCRIT (test code=HCT) 24.8 % 36.0-46.0 MEAN CELL VOLUME (test code=MCV) 92.9 fL 80-98 MEAN CELL HGB (test code=MCH) 28.1 picogram 27.0-33.0 MEAN CELL HGB CONCETRATION (test code=MCHC) 30.2 gram/dL 33.0-36.0 RED CELL DISTRIBUTION WIDTH (test code=RDW) 16.7 % 11.6-16.2 RED CELL DISTRIBUTION WIDTH SD (test code=RDW-SD) 57.1 fL 37.0-51.0 PLATELET COUNT (test code=PLT) 159 K/mm3 150-450 MEAN PLATELET VOLUME (test code=MPV) 11.0 fL 6.7-11.0 NEUTROPHIL % (test code=NT%) 79.9 % 39.0-69.0 IMMATURE GRANULOCYTE % (test code=IG%) 0.6 % 0.0-5.0 LYMPHOCYTE % (test code=LY%) 7.4 % 25.0-55.0 MONOCYTE % (test code=MO%) 7.7 % 0.0-10.0 EOSINOPHIL % (test code=EO%) 4.2 % 0.0-5.0 BASOPHIL % (test code=BA%) 0.2 % 0.0-1.0 NUCLEATED RBC % (test code=NRBC%) 0.0 % 0-0 NEUTROPHIL # (test code=NT#) 10.12 K/mm3 1.8-7.7 IMMATURE GRANULOCYTE # (test code=IG#) 0.08 x10 3/uL 0-0.03 LYMPHOCYTE # (test code=LY#) 0.94 K/mm3 1.0-5.0 MONOCYTE # (test code=MO#) 0.98 K/mm3 0-0.8 EOSINOPHIL # (test code=EO#) 0.53 K/mm3 0.0-0.5 BASOPHIL # (test code=BA#) 0.03 K/mm3 0.0-0.2 NUCLEATED RBC # (test code=NRBC#) 0.00 K/mm3 0.0-0.1 MANUAL DIFF REQUIRED (test code=MDIFF) NO [id number] 00:33:00* Test Item Value Reference Range Comments GLUBED (test code=GLUBED) 65 mg/dL 74-106 Performed by certified glazing machine operator at [facility] [id number] 20:55:00* Test Item Value Reference Range Comments GLUBED (test code=GLUBED) 48 mg/dL 74-106 [facility] glazing machine [facility]~ [id number] 17:50:00* Test Item Value Reference Range Comments GLUBED (test code=GLUBED) 101 mg/dL 74-106 Performed by certified glazing machine operator at [facility] [id number] 17:20:00* Test Item Value Reference Range Comments GLUBED (test code=GLUBED) 38 mg/dL 74-106 Performed by certified glazing machine operator at [facility] - XR CHEST 1 [id number] 12:30:00 FAX: Joshua Healy MD [phone] [place]: [address] St: ADM Name: JOSÉ MIGUEL DAWN [facility] : [birth year] 49 Age/S: 67/F [address] [facility] Unit #: [id number] Loc: [id number] [address] Phys: Elmer Harman MD Acct: [id number] Dis Date: Status: ADM IN PHONE #: [phone] Exam Date: 05/15/2018 1217 FAX #: [phone] Reason: POST LINE PLACEMENT EXAMS: CPT CODE: [id number] XR CHEST 1 V [id number] HISTORY: Post line placement. COMPARISON: Previous day. Left new jugular HD catheter with the tip projected over the right atrium and SVC junction without pneum othorax. Left central line as well is unchanged with the tip in the right subclavian vein. The lungs are clear of infiltrates, effusion or congestio n. Study is limited due to overpenetrated technique. Dependent changes. Ca rdiomegaly. NG tube tip in good position within stomach. I MPRESSION: No pneumothorax after left jugular HD catheter plac ement with the tip at the right atrium and SVC junction. Kalli ctronically Signed by Reggie Bryant on 05/15/2018 at 1230 Reported and signed by: Calderon Bryant M.D. CC: Joshua Sanchez MD Technologist: NAIMA BUSBY JR Trnscrd Date/Time/By: 05/15/2018 (1230 ) : By: [email or web address] Orig Print D/T: S: 05/15/2018 (8279) PAGE 1 Signed Report [id number] 11:43:00* Test Item Value Reference Range Comments GLUBED (test code=GLUBED) 107 mg/dL 74-106 Performed by certified glazing machine operator at [facility] COMPREHENSIVE METABOLIC [id number] 09:28:00* Test Item Value Reference Range Comments SODIUM (test code=NA) 136 mmol/L 136-145 POTASSIUM (test code=K) 3.5 mmol/L 3.5-5.1 CHLORIDE (test code=CL) 102.0 mmol/L 98-107 CARBON DIOXIDE (test code=CO2) 24.0 mmol/L 21-32 ANION GAP (test code=GAP) 13.5 10-20 GLUCOSE (test code=GLU) 634 mg/dL 74-106 Results called to [id number] by [email or web address] 05/15/18 0703Critical results verified and read back by Nurse? Y BLOOD UREA NITROGEN (test code=BUN) 38 mg/dL 7-18 GLOMERULAR FILTRATION RATE (test code=GFR) 11 mL/min >=60 Estimated GFR by using Modified MDRD formula.Chronic kidney disease is defined as either kidney damageor GFR <60 mL/min/1.73 m2 for >3 months. CREATININE (test code=CREAT) 3.90 mg/dL 0.55-1.02 Note change in reference range due to change in reagent. BUN/CREATININE RATIO (test code=BUN/CREA) 9.7 10-20 TOTAL PROTEIN (test code=PROT) 5.4 gram/dL 6.4-8.2 ALBUMIN (test code=ALB) 2.6 g/dL 3.4-5.0 GLOBULIN (test code=GLOB) 2.8 gram/dL 2.7-4.2 ALBUMIN/GLOBULIN RATIO (test code=A/G) 0.9 0.75-1.50 CALCIUM (test code=CA) 7.6 mg/dL 8.5-10.1 BILIRUBIN TOTAL (test code=BILT) 0.40 mg/dL 0.0-1.0 SGOT/AST (test code=AST) 16 IUnit/L 15-37 SGPT/ALT (test code=ALT) 13 IUnit/L 12-78 ALKALINE PHOSPHATASE TOTAL (test code=ALKP) 73 IUnit/L 45-117 Note change in reference range due to change in reagent. [id number] 09:28:00* Test Item Value Reference Range Comments PHOSPHORUS (test code=PHOS) 3.7 mg/dL 2.5-4.9 [id number] 09:28:00* Test Item Value Reference Range Comments MAGNESIUM (test code=MAG) 2.3 mg/dL 1.8-2.4 COMPREHENSIVE METABOLIC [id number] 07:04:00* Test Item Value Reference Range Comments SODIUM (test code=NA) 136 mmol/L 136-145 POTASSIUM (test code=K) 3.5 mmol/L 3.5-5.1 CHLORIDE (test code=CL) 102.0 mmol/L 98-107 CARBON DIOXIDE (test code=CO2) 24.0 mmol/L 21-32 ANION GAP (test code=GAP) 13.5 10-20 GLUCOSE (test code=GLU) 634 mg/dL 74-106 Results called to [id number] by [email or web address] 05/15/18 0703Critical results verified and read back by Nurse? Y BLOOD UREA NITROGEN (test code=BUN) mg/dL 7-18 GLOMERULAR FILTRATION RATE (test code=GFR) 11 mL/min >=60 Estimated GFR by using Modified MDRD formula.Chronic kidney disease is defined as either kidney damageor GFR <60 mL/min/1.73 m2 for >3 months. CREATININE (test code=CREAT) 3.90 mg/dL 0.55-1.02 Note change in reference range due to change in reagent. BUN/CREATININE RATIO (test code=BUN/CREA) 10-20 TOTAL PROTEIN (test code=PROT) gram/dL 6.4-8.2 ALBUMIN (test code=ALB) 2.6 g/dL 3.4-5.0 GLOBULIN (test code=GLOB) gram/dL 2.7-4.2 ALBUMIN/GLOBULIN RATIO (test code=A/G) 0.75-1.50 CALCIUM (test code=CA) 7.6 mg/dL 8.5-10.1 BILIRUBIN TOTAL (test code=BILT) 0.40 mg/dL 0.0-1.0 SGOT/AST (test code=AST) 16 IUnit/L 15-37 SGPT/ALT (test code=ALT) IUnit/L 12-78 ALKALINE PHOSPHATASE TOTAL (test code=ALKP) 73 IUnit/L 45-117 Note change in reference range due to change in reagent. [id number] 07:04:00* Test Item Value Reference Range Comments PHOSPHORUS (test code=PHOS) 3.7 mg/dL 2.5-4.9 [id number] 07:04:00* Test Item Value Reference Range Comments MAGNESIUM (test code=MAG) 2.3 mg/dL 1.8-2.4 CBC W/MANUAL [id number] 06:44:00* Test Item Value Reference Range Comments WHITE BLOOD CELL (test code=WBC) 12.3 K/mm3 4.5-12.5 RED BLOOD CELL (test code=RBC) 2.48 mill/mm3 3.7-5.2 HEMOGLOBIN (test code=HGB) 7.8 gram/dL 11.5-15.5 HEMATOCRIT (test code=HCT) 23.7 % 36.0-46.0 MEAN CELL VOLUME (test code=MCV) 95.6 fL 80-98 MEAN CELL HGB (test code=MCH) 31.5 picogram 27.0-33.0 MEAN CELL HGB CONCETRATION (test code=MCHC) 32.9 gram/dL 33.0-36.0 RED CELL DISTRIBUTION WIDTH (test code=RDW) 17.6 % 11.6-16.2 RED CELL DISTRIBUTION WIDTH SD (test code=RDW-SD) 60.8 fL 37.0-51.0 PLATELET COUNT (test code=PLT) 153 K/mm3 150-450 MEAN PLATELET VOLUME (test code=MPV) 11.2 fL 6.7-11.0 IMMATURE GRANULOCYTE % (test code=IG%) 0.3 % 0.0-5.0 NUCLEATED RBC % (test code=NRBC%) 0.0 % 0-0 NEUTROPHIL # (test code=NT#) 10.72 K/mm3 1.8-7.7 IMMATURE GRANULOCYTE # (test code=IG#) 0.04 x10 3/uL 0-0.03 LYMPHOCYTE # (test code=LY#) 0.63 K/mm3 1.0-5.0 MONOCYTE # (test code=MO#) 0.49 K/mm3 0-0.8 EOSINOPHIL # (test code=EO#) 0.37 K/mm3 0.0-0.5 BASOPHIL # (test code=BA#) 0.03 K/mm3 0.0-0.2 NUCLEATED RBC # (test code=NRBC#) 0.00 K/mm3 0.0-0.1 MANUAL DIFF REQUIRED (test code=MDIFF) YES STAIN ACCEPTABILITY (test code=STN ACCEPTABLE) STAIN ACCEPTABLE TOTAL CELLS COUNTED (test code=TCC) 115 #CELLS SEGMENTED NEUTROPHILS (test code=SEG) 87.8 % 39-69 BAND NEUTROPHIL (test code=BAND) 0 % 0-10 LYMPHOCYTE (test code=LYMPH) 7.0 % 25-55 REACTIVE LYMPH (test code=RELYMPH) 0 % MONOCYTE (test code=MON) 0 % 0-10 EOSINOPHIL (test code=EOS) 4.3 % 0.0-5.0 BASOPHIL (test code=BASO) 0.9 % 0-1.0 METAMYELOCYTE (test code=META) 0 % 0-0 MYELOCYTE (test code=MYELO) 0 % 0.0-0.0 PROMYELOCYTE (test code=PROM) 0 % 0-0 ANISOCYTOSIS (test code=ANISO) 1+ MICROCYTOSIS (test code=MICR) 2+ PLATELET ESTIMATE (test code=PLTEST) DECREASED PLATELET MORPHOLOGY (test code=PLTMORPH) NORMAL IMMATURE FORMS (test code=IMMAT) 0 % COMPREHENSIVE METABOLIC [id number] 06:11:00* Test Item Value Reference Range Comments SODIUM (test code=NA) 136 mmol/L 136-145 POTASSIUM (test code=K) 3.5 mmol/L 3.5-5.1 CHLORIDE (test code=CL) 102.0 mmol/L 98-107 CARBON DIOXIDE (test code=CO2) mmol/L 21-32 ANION GAP (test code=GAP) 10-20 GLUCOSE (test code=GLU) mg/dL 74-106 BLOOD UREA NITROGEN (test code=BUN) mg/dL 7-18 GLOMERULAR FILTRATION RATE (test code=GFR) mL/min >=60 CREATININE (test code=CREAT) mg/dL 0.55-1.02 BUN/CREATININE RATIO (test code=BUN/CREA) 10-20 TOTAL PROTEIN (test code=PROT) gram/dL 6.4-8.2 ALBUMIN (test code=ALB) g/dL 3.4-5.0 GLOBULIN (test code=GLOB) gram/dL 2.7-4.2 ALBUMIN/GLOBULIN RATIO (test code=A/G) 0.75-1.50 CALCIUM (test code=CA) mg/dL 8.5-10.1 BILIRUBIN TOTAL (test code=BILT) mg/dL 0.0-1.0 SGOT/AST (test code=AST) IUnit/L 15-37 SGPT/ALT (test code=ALT) IUnit/L 12-78 ALKALINE PHOSPHATASE TOTAL (test code=ALKP) IUnit/L 45-117 [id number] 06:11:00* Test Item Value Reference Range Comments PHOSPHORUS (test code=PHOS) mg/dL 2.5-4.9 [id number] 06:11:00* Test Item Value Reference Range Comments MAGNESIUM (test code=MAG) mg/dL 1.8-2.4 CBC W/MANUAL [id number] 05:56:00* Test Item Value Reference Range Comments WHITE BLOOD CELL (test code=WBC) 12.3 K/mm3 4.5-12.5 RED BLOOD CELL (test code=RBC) 2.48 mill/mm3 3.7-5.2 HEMOGLOBIN (test code=HGB) 7.8 gram/dL 11.5-15.5 HEMATOCRIT (test code=HCT) 23.7 % 36.0-46.0 MEAN CELL VOLUME (test code=MCV) 95.6 fL 80-98 MEAN CELL HGB (test code=MCH) 31.5 picogram 27.0-33.0 MEAN CELL HGB CONCETRATION (test code=MCHC) 32.9 gram/dL 33.0-36.0 RED CELL DISTRIBUTION WIDTH (test code=RDW) 17.6 % 11.6-16.2 RED CELL DISTRIBUTION WIDTH SD (test code=RDW-SD) 60.8 fL 37.0-51.0 PLATELET COUNT (test code=PLT) 153 K/mm3 150-450 MEAN PLATELET VOLUME (test code=MPV) 11.2 fL 6.7-11.0 IMMATURE GRANULOCYTE % (test code=IG%) 0.3 % 0.0-5.0 NUCLEATED RBC % (test code=NRBC%) 0.0 % 0-0 NEUTROPHIL # (test code=NT#) 10.72 K/mm3 1.8-7.7 IMMATURE GRANULOCYTE # (test code=IG#) 0.04 x10 3/uL 0-0.03 LYMPHOCYTE # (test code=LY#) 0.63 K/mm3 1.0-5.0 MONOCYTE # (test code=MO#) 0.49 K/mm3 0-0.8 EOSINOPHIL # (test code=EO#) 0.37 K/mm3 0.0-0.5 BASOPHIL # (test code=BA#) 0.03 K/mm3 0.0-0.2 NUCLEATED RBC # (test code=NRBC#) 0.00 K/mm3 0.0-0.1 MANUAL DIFF REQUIRED (test code=MDIFF) YES STAIN ACCEPTABILITY (test code=STN ACCEPTABLE) TOTAL CELLS COUNTED (test code=TCC) #CELLS SEGMENTED NEUTROPHILS (test code=SEG) % 39-69 LYMPHOCYTE (test code=LYMPH) % 25-55 MONOCYTE (test code=MON) % 0-10 EOSINOPHIL (test code=EOS) % 0.0-5.0 CABOT RINGS (test code=CAB) MORPHOLOGY COMMENT (test code=MOC) PLATELET ESTIMATE (test code=PLTEST) PLATELET MORPHOLOGY (test code=PLTMORPH) CBC W/MANUAL [id number] 05:56:00* Test Item Value Reference Range Comments WHITE BLOOD CELL (test code=WBC) 12.3 K/mm3 4.5-12.5 RED BLOOD CELL (test code=RBC) 2.48 mill/mm3 3.7-5.2 HEMOGLOBIN (test code=HGB) 7.8 gram/dL 11.5-15.5 HEMATOCRIT (test code=HCT) 23.7 % 36.0-46.0 MEAN CELL VOLUME (test code=MCV) 95.6 fL 80-98 MEAN CELL HGB (test code=MCH) 31.5 picogram 27.0-33.0 MEAN CELL HGB CONCETRATION (test code=MCHC) 32.9 gram/dL 33.0-36.0 RED CELL DISTRIBUTION WIDTH (test code=RDW) 17.6 % 11.6-16.2 RED CELL DISTRIBUTION WIDTH SD (test code=RDW-SD) 60.8 fL 37.0-51.0 PLATELET COUNT (test code=PLT) 153 K/mm3 150-450 MEAN PLATELET VOLUME (test code=MPV) 11.2 fL 6.7-11.0 IMMATURE GRANULOCYTE % (test code=IG%) 0.3 % 0.0-5.0 NUCLEATED RBC % (test code=NRBC%) 0.0 % 0-0 NEUTROPHIL # (test code=NT#) 10.72 K/mm3 1.8-7.7 IMMATURE GRANULOCYTE # (test code=IG#) 0.04 x10 3/uL 0-0.03 LYMPHOCYTE # (test code=LY#) 0.63 K/mm3 1.0-5.0 MONOCYTE # (test code=MO#) 0.49 K/mm3 0-0.8 EOSINOPHIL # (test code=EO#) 0.37 K/mm3 0.0-0.5 BASOPHIL # (test code=BA#) 0.03 K/mm3 0.0-0.2 NUCLEATED RBC # (test code=NRBC#) 0.00 K/mm3 0.0-0.1 MANUAL DIFF REQUIRED (test code=MDIFF) YES STAIN ACCEPTABILITY (test code=STN ACCEPTABLE) TOTAL CELLS COUNTED (test code=TCC) #CELLS SEGMENTED NEUTROPHILS (test code=SEG) % 39-69 LYMPHOCYTE (test code=LYMPH) % 25-55 MONOCYTE (test code=MON) % 0-10 EOSINOPHIL (test code=EOS) % 0.0-5.0 MORPHOLOGY COMMENT (test code=MOC) PLATELET ESTIMATE (test code=PLTEST) PLATELET MORPHOLOGY (test code=PLTMORPH) CBC W/MANUAL [id number] 05:56:00* Test Item Value Reference Range Comments WHITE BLOOD CELL (test code=WBC) 12.3 K/mm3 4.5-12.5 RED BLOOD CELL (test code=RBC) 2.48 mill/mm3 3.7-5.2 HEMOGLOBIN (test code=HGB) 7.8 gram/dL 11.5-15.5 HEMATOCRIT (test code=HCT) 23.7 % 36.0-46.0 MEAN CELL VOLUME (test code=MCV) 95.6 fL 80-98 MEAN CELL HGB (test code=MCH) 31.5 picogram 27.0-33.0 MEAN CELL HGB CONCETRATION (test code=MCHC) 32.9 gram/dL 33.0-36.0 RED CELL DISTRIBUTION WIDTH (test code=RDW) 17.6 % 11.6-16.2 RED CELL DISTRIBUTION WIDTH SD (test code=RDW-SD) 60.8 fL 37.0-51.0 PLATELET COUNT (test code=PLT) 153 K/mm3 150-450 MEAN PLATELET VOLUME (test code=MPV) 11.2 fL 6.7-11.0 IMMATURE GRANULOCYTE % (test code=IG%) 0.3 % 0.0-5.0 NUCLEATED RBC % (test code=NRBC%) 0.0 % 0-0 NEUTROPHIL # (test code=NT#) 10.72 K/mm3 1.8-7.7 IMMATURE GRANULOCYTE # (test code=IG#) 0.04 x10 3/uL 0-0.03 LYMPHOCYTE # (test code=LY#) 0.63 K/mm3 1.0-5.0 MONOCYTE # (test code=MO#) 0.49 K/mm3 0-0.8 EOSINOPHIL # (test code=EO#) 0.37 K/mm3 0.0-0.5 BASOPHIL # (test code=BA#) 0.03 K/mm3 0.0-0.2 NUCLEATED RBC # (test code=NRBC#) 0.00 K/mm3 0.0-0.1 MANUAL DIFF REQUIRED (test code=MDIFF) YES STAIN ACCEPTABILITY (test code=STN ACCEPTABLE) TOTAL CELLS COUNTED (test code=TCC) #CELLS SEGMENTED NEUTROPHILS (test code=SEG) % 39-69 LYMPHOCYTE (test code=LYMPH) % 25-55 MONOCYTE (test code=MON) % 0-10 MORPHOLOGY COMMENT (test code=MOC) PLATELET ESTIMATE (test code=PLTEST) PLATELET MORPHOLOGY (test code=PLTMORPH) CBC W/MANUAL [id number] 05:55:00* Test Item Value Reference Range Comments WHITE BLOOD CELL (test code=WBC) 12.3 K/mm3 4.5-12.5 RED BLOOD CELL (test code=RBC) 2.48 mill/mm3 3.7-5.2 HEMOGLOBIN (test code=HGB) 7.8 gram/dL 11.5-15.5 HEMATOCRIT (test code=HCT) 23.7 % 36.0-46.0 MEAN CELL VOLUME (test code=MCV) 95.6 fL 80-98 MEAN CELL HGB (test code=MCH) 31.5 picogram 27.0-33.0 MEAN CELL HGB CONCETRATION (test code=MCHC) 32.9 gram/dL 33.0-36.0 RED CELL DISTRIBUTION WIDTH (test code=RDW) 17.6 % 11.6-16.2 RED CELL DISTRIBUTION WIDTH SD (test code=RDW-SD) 60.8 fL 37.0-51.0 PLATELET COUNT (test code=PLT) 153 K/mm3 150-450 MEAN PLATELET VOLUME (test code=MPV) 11.2 fL 6.7-11.0 IMMATURE GRANULOCYTE % (test code=IG%) 0.3 % 0.0-5.0 NUCLEATED RBC % (test code=NRBC%) 0.0 % 0-0 NEUTROPHIL # (test code=NT#) 10.72 K/mm3 1.8-7.7 IMMATURE GRANULOCYTE # (test code=IG#) 0.04 x10 3/uL 0-0.03 LYMPHOCYTE # (test code=LY#) 0.63 K/mm3 1.0-5.0 MONOCYTE # (test code=MO#) 0.49 K/mm3 0-0.8 EOSINOPHIL # (test code=EO#) 0.37 K/mm3 0.0-0.5 BASOPHIL # (test code=BA#) 0.03 K/mm3 0.0-0.2 NUCLEATED RBC # (test code=NRBC#) 0.00 K/mm3 0.0-0.1 MANUAL DIFF REQUIRED (test code=MDIFF) YES STAIN ACCEPTABILITY (test code=STN ACCEPTABLE) TOTAL CELLS COUNTED (test code=TCC) #CELLS SEGMENTED NEUTROPHILS (test code=SEG) % 39-69 LYMPHOCYTE (test code=LYMPH) % 25-55 MONOCYTE (test code=MON) % 0-10 EOSINOPHIL (test code=EOS) % 0.0-5.0 CABOT RINGS (test code=CAB) MORPHOLOGY COMMENT (test code=MOC) PLATELET ESTIMATE (test code=PLTEST) PLATELET MORPHOLOGY (test code=PLTMORPH) CBC W/MANUAL [id number] 05:55:00* Test Item Value Reference Range Comments WHITE BLOOD CELL (test code=WBC) 12.3 K/mm3 4.5-12.5 RED BLOOD CELL (test code=RBC) 2.48 mill/mm3 3.7-5.2 HEMOGLOBIN (test code=HGB) 7.8 gram/dL 11.5-15.5 HEMATOCRIT (test code=HCT) 23.7 % 36.0-46.0 MEAN CELL VOLUME (test code=MCV) 95.6 fL 80-98 MEAN CELL HGB (test code=MCH) 31.5 picogram 27.0-33.0 MEAN CELL HGB CONCETRATION (test code=MCHC) 32.9 gram/dL 33.0-36.0 RED CELL DISTRIBUTION WIDTH (test code=RDW) 17.6 % 11.6-16.2 RED CELL DISTRIBUTION WIDTH SD (test code=RDW-SD) 60.8 fL 37.0-51.0 PLATELET COUNT (test code=PLT) 153 K/mm3 150-450 MEAN PLATELET VOLUME (test code=MPV) 11.2 fL 6.7-11.0 IMMATURE GRANULOCYTE % (test code=IG%) 0.3 % 0.0-5.0 NUCLEATED RBC % (test code=NRBC%) 0.0 % 0-0 NEUTROPHIL # (test code=NT#) 10.72 K/mm3 1.8-7.7 IMMATURE GRANULOCYTE # (test code=IG#) 0.04 x10 3/uL 0-0.03 LYMPHOCYTE # (test code=LY#) 0.63 K/mm3 1.0-5.0 MONOCYTE # (test code=MO#) 0.49 K/mm3 0-0.8 EOSINOPHIL # (test code=EO#) 0.37 K/mm3 0.0-0.5 BASOPHIL # (test code=BA#) 0.03 K/mm3 0.0-0.2 NUCLEATED RBC # (test code=NRBC#) 0.00 K/mm3 0.0-0.1 MANUAL DIFF REQUIRED (test code=MDIFF) YES STAIN ACCEPTABILITY (test code=STN ACCEPTABLE) TOTAL CELLS COUNTED (test code=TCC) #CELLS SEGMENTED NEUTROPHILS (test code=SEG) % 39-69 LYMPHOCYTE (test code=LYMPH) % 25-55 MONOCYTE (test code=MON) % 0-10 EOSINOPHIL (test code=EOS) % 0.0-5.0 CABOT RINGS (test code=CAB) MORPHOLOGY COMMENT (test code=MOC) PLATELET ESTIMATE (test code=PLTEST) PLATELET MORPHOLOGY (test code=PLTMORPH) [id number] 21:17:00* Test Item Value Reference Range Comments GLUBED (test code=GLUBED) 163 mg/dL 74-106 Performed by certified glazing machine operator at [facility] COMPREHENSIVE METABOLIC [id number] 15:49:00* Test Item Value Reference Range Comments SODIUM (test code=NA) 140 mmol/L 136-145 POTASSIUM (test code=K) 3.7 mmol/L 3.5-5.1 CHLORIDE (test code=CL) 106.0 mmol/L 98-107 CARBON DIOXIDE (test code=CO2) 26.0 mmol/L 21-32 ANION GAP (test code=GAP) 11.7 10-20 GLUCOSE (test code=GLU) 108 mg/dL 74-106 BLOOD UREA NITROGEN (test code=BUN) 32 mg/dL 7-18 GLOMERULAR FILTRATION RATE (test code=GFR) 13 mL/min >=60 Estimated GFR by using Modified MDRD formula.Chronic kidney disease is defined as either kidney damageor GFR <60 mL/min/1.73 m2 for >3 months. CREATININE (test code=CREAT) 3.40 mg/dL 0.55-1.02 Note change in reference range due to change in reagent. BUN/CREATININE RATIO (test code=BUN/CREA) 9.4 10-20 TOTAL PROTEIN (test code=PROT) 5.8 gram/dL 6.4-8.2 ALBUMIN (test code=ALB) 2.7 g/dL 3.4-5.0 GLOBULIN (test code=GLOB) 3.1 gram/dL 2.7-4.2 ALBUMIN/GLOBULIN RATIO (test code=A/G) 0.9 0.75-1.50 CALCIUM (test code=CA) 7.5 mg/dL 8.5-10.1 BILIRUBIN TOTAL (test code=BILT) 0.70 mg/dL 0.0-1.0 SGOT/AST (test code=AST) 14 IUnit/L 15-37 SGPT/ALT (test code=ALT) 12 IUnit/L 12-78 ALKALINE PHOSPHATASE TOTAL (test code=ALKP) 65 IUnit/L 45-117 Note change in reference range due to change in reagent. COMPREHENSIVE METABOLIC [id number] 15:42:00* Test Item Value Reference Range Comments SODIUM (test code=NA) 140 mmol/L 136-145 POTASSIUM (test code=K) 3.7 mmol/L 3.5-5.1 CHLORIDE (test code=CL) 106.0 mmol/L 98-107 CARBON DIOXIDE (test code=CO2) mmol/L 21-32 ANION GAP (test code=GAP) 10-20 GLUCOSE (test code=GLU) mg/dL 74-106 BLOOD UREA NITROGEN (test code=BUN) mg/dL 7-18 GLOMERULAR FILTRATION RATE (test code=GFR) mL/min >=60 CREATININE (test code=CREAT) mg/dL 0.55-1.02 BUN/CREATININE RATIO (test code=BUN/CREA) 10-20 TOTAL PROTEIN (test code=PROT) gram/dL 6.4-8.2 ALBUMIN (test code=ALB) g/dL 3.4-5.0 GLOBULIN (test code=GLOB) gram/dL 2.7-4.2 ALBUMIN/GLOBULIN RATIO (test code=A/G) 0.75-1.50 CALCIUM (test code=CA) mg/dL 8.5-10.1 BILIRUBIN TOTAL (test code=BILT) mg/dL 0.0-1.0 SGOT/AST (test code=AST) IUnit/L 15-37 SGPT/ALT (test code=ALT) IUnit/L 12-78 ALKALINE PHOSPHATASE TOTAL (test code=ALKP) IUnit/L 45-117 [id number] 14:50:00* Test Item Value Reference Range Comments GLUBED (test code=GLUBED) 120 mg/dL 74-106 Performed by certified glazing machine operator at [facility] - [employer] [id number] 13:50:00 Name: JOSÉ MIGUEL MCGINNIS [facility] : 1950 Age/S: 67 / F [address] [facility] Unit #: [id number] Loc: [place], [place] [address] Phys: Giovana Escalante MD Acct: [id number] Dis Date: Status: ADM IN PHONE #: [phone] Exam Date: 05/14/2018 1337 FAX #: [phone] Reason: DIALYSIS EXAMS: CPT CODE: [id number] [employer] [facility] [id number] HISTORY: Dialysis. COMPARISON: CT abdomen and pelvis from March 31, 2018. Note: Study slightly limited due to technique with markedly increased gain. No hydronephrosis or calyceal stones. Slightly hyperechogenic kidneys suggesting chronic medical renal disease. No perinephric collections. Right kidney is measuring 8.3 x 3.8 x 3.5 cm. Left kidney measured 7.7 x 4.2 x 3.1 cm. IMPRESSION: Chronic medical renal disease without hydronephrosis or calyceal stones. at 1350 Reported and signed by: Calderon Bryant M.D. CC: Joshua Healy MD; Giovana Escalante MD Technologist: Magdalene Sauer [employer] Date/Time: 05/14/2018 (9775) [email or web address] Orig Print D/T: S: 05/14/2018 (9589) Probe: PAGE 1 Signed Report CBC W/MANUAL [id number] 11:44:00* Test Item Value Reference Range Comments WHITE BLOOD CELL (test code=WBC) 14.6 K/mm3 4.5-12.5 RED BLOOD CELL (test code=RBC) 2.91 mill/mm3 3.7-5.2 HEMOGLOBIN (test code=HGB) 8.1 gram/dL 11.5-15.5 HEMATOCRIT (test code=HCT) 27.1 % 36.0-46.0 MEAN CELL VOLUME (test code=MCV) 93.1 fL 80-98 MEAN CELL HGB (test code=MCH) 27.8 picogram 27.0-33.0 MEAN CELL HGB CONCETRATION (test code=MCHC) 29.9 gram/dL 33.0-36.0 RED CELL DISTRIBUTION WIDTH (test code=RDW) 16.0 % 11.6-16.2 RED CELL DISTRIBUTION WIDTH SD (test code=RDW-SD) 54.2 fL 37.0-51.0 PLATELET COUNT (test code=PLT) 154 K/mm3 150-450 MEAN PLATELET VOLUME (test code=MPV) 10.7 fL 6.7-11.0 IMMATURE GRANULOCYTE % (test code=IG%) 0.6 % 0.0-5.0 NUCLEATED RBC % (test code=NRBC%) 0.0 % 0-0 NEUTROPHIL # (test code=NT#) 12.73 K/mm3 1.8-7.7 IMMATURE GRANULOCYTE # (test code=IG#) 0.09 x10 3/uL 0-0.03 LYMPHOCYTE # (test code=LY#) 0.84 K/mm3 1.0-5.0 MONOCYTE # (test code=MO#) 0.77 K/mm3 0-0.8 EOSINOPHIL # (test code=EO#) 0.12 K/mm3 0.0-0.5 BASOPHIL # (test code=BA#) 0.04 K/mm3 0.0-0.2 NUCLEATED RBC # (test code=NRBC#) 0.00 K/mm3 0.0-0.1 MANUAL DIFF REQUIRED (test code=MDIFF) YES STAIN ACCEPTABILITY (test code=STN ACCEPTABLE) STAIN ACCEPTABLE TOTAL CELLS COUNTED (test code=TCC) 114 #CELLS SEGMENTED NEUTROPHILS (test code=SEG) 93.8 % 39-69 BAND NEUTROPHIL (test code=BAND) 0 % 0-10 LYMPHOCYTE (test code=LYMPH) 3.5 % 25-55 REACTIVE LYMPH (test code=RELYMPH) 0 % MONOCYTE (test code=MON) 0.9 % 0-10 EOSINOPHIL (test code=EOS) 0.9 % 0.0-5.0 BASOPHIL (test code=BASO) 0 % 0-1.0 METAMYELOCYTE (test code=META) 0 % 0-0 MYELOCYTE (test code=MYELO) 0 % 0.0-0.0 PROMYELOCYTE (test code=PROM) 0.9 % 0-0 HYPOCHROMIA (test code=HYPO) 1+ PLATELET ESTIMATE (test code=PLTEST) ADEQUATE PLATELET MORPHOLOGY (test code=PLTMORPH) NORMAL IMMATURE FORMS (test code=IMMAT) 0 % [id number] 10:14:00* Test Item Value Reference Range Comments GLUBED (test code=GLUBED) 124 mg/dL 74-106 Performed by certified glazing machine operator at [facility] AG HEPAT B [id number] 10:10:00* Test Item Value Reference Range Comments AG HEPAT B SURF (test code=HBSAG) Nonreactive Index Nonreactive [id number] 07:59:00* Test Item Value Reference Range Comments GLUBED (test code=GLUBED) 142 mg/dL 74-106 Performed by certified glazing machine operator at [facility] - XR CHEST 1 [id number] 07:28:00 FAX: Joshua Healy MD [phone] [place]: St: [facility] FAX: Giovana Correa MD [phone] Name: JOSÉ MIGUEL MCGINNIS [facility] : 1950 Age/S: 67/F [address] [facility] [address] #: [id number] Loc: [place]anna7 [place] [address] Phys: Giovana Escalante MD Acct: [id number] Dis Date: Status: ADM IN PHONE #: [phone] Exam Date: 05/14/2018 0650 FAX #: [phone] Reason: FLUID VOLUME OVERLOAD EXAMS: CPT CODE: [id number] XR CHEST 1 V 37901 EXAM: Chest x-ray, one view; INFORMATION: Chest pain, fluid overload; IMPRESSION: No change compared with recent studies; moderate cardiomegaly; No pulmonary edema. at 0728 Reported and signed by: Elmer Harman M.D. CC: Joshua Healy MD; Giovana Escalante MD Technologist: Rachel Menendez(Niya) Trnscrd Date/Time/By: 05/14/2018 (727) : By: ChayaGRW Orig Print D/T: S: 05/14/2018 (0704) PAGE 1 Signed Report [id number] 07:22:00* Test Item Value Reference Range Comments PHOSPHORUS (test code=PHOS) 4.6 mg/dL 2.5-4.9 [id number] 07:22:00* Test Item Value Reference Range Comments MAGNESIUM (test code=MAG) 2.3 mg/dL 1.8-2.4 CALCIUM [id number] 07:22:00* Test Item Value Reference Range Comments CALCIUM IONIZED (test code=FLO) 1.16 mmol/L 1.12-1.32 B-TYPE NATRIURETIC [id number] 07:18:00* Test Item Value Reference Range Comments B-TYPE NATRIURETIC PEPTIDE (test code=BNP) 4044.70 pgram/mL 0-100 CBC W/MANUAL [id number] 06:27:00* Test Item Value Reference Range Comments WHITE BLOOD CELL (test code=WBC) 14.6 K/mm3 4.5-12.5 RED BLOOD CELL (test code=RBC) 2.91 mill/mm3 3.7-5.2 HEMOGLOBIN (test code=HGB) 8.1 gram/dL 11.5-15.5 HEMATOCRIT (test code=HCT) 27.1 % 36.0-46.0 MEAN CELL VOLUME (test code=MCV) 93.1 fL 80-98 MEAN CELL HGB (test code=MCH) 27.8 picogram 27.0-33.0 MEAN CELL HGB CONCETRATION (test code=MCHC) 29.9 gram/dL 33.0-36.0 RED CELL DISTRIBUTION WIDTH (test code=RDW) 16.0 % 11.6-16.2 RED CELL DISTRIBUTION WIDTH SD (test code=RDW-SD) 54.2 fL 37.0-51.0 PLATELET COUNT (test code=PLT) 154 K/mm3 150-450 MEAN PLATELET VOLUME (test code=MPV) 10.7 fL 6.7-11.0 IMMATURE GRANULOCYTE % (test code=IG%) 0.6 % 0.0-5.0 NUCLEATED RBC % (test code=NRBC%) 0.0 % 0-0 NEUTROPHIL # (test code=NT#) 12.73 K/mm3 1.8-7.7 IMMATURE GRANULOCYTE # (test code=IG#) 0.09 x10 3/uL 0-0.03 LYMPHOCYTE # (test code=LY#) 0.84 K/mm3 1.0-5.0 MONOCYTE # (test code=MO#) 0.77 K/mm3 0-0.8 EOSINOPHIL # (test code=EO#) 0.12 K/mm3 0.0-0.5 BASOPHIL # (test code=BA#) 0.04 K/mm3 0.0-0.2 NUCLEATED RBC # (test code=NRBC#) 0.00 K/mm3 0.0-0.1 MANUAL DIFF REQUIRED (test code=MDIFF) YES STAIN ACCEPTABILITY (test code=STN ACCEPTABLE) TOTAL CELLS COUNTED (test code=TCC) #CELLS SEGMENTED NEUTROPHILS (test code=SEG) % 39-69 LYMPHOCYTE (test code=LYMPH) % 25-55 MONOCYTE (test code=MON) % 0-10 EOSINOPHIL (test code=EOS) % 0.0-5.0 CABOT RINGS (test code=CAB) MORPHOLOGY COMMENT (test code=MOC) PLATELET ESTIMATE (test code=PLTEST) PLATELET MORPHOLOGY (test code=PLTMORPH) CBC W/MANUAL [id number] 06:27:00* Test Item Value Reference Range Comments WHITE BLOOD CELL (test code=WBC) 14.6 K/mm3 4.5-12.5 RED BLOOD CELL (test code=RBC) 2.91 mill/mm3 3.7-5.2 HEMOGLOBIN (test code=HGB) 8.1 gram/dL 11.5-15.5 HEMATOCRIT (test code=HCT) 27.1 % 36.0-46.0 MEAN CELL VOLUME (test code=MCV) 93.1 fL 80-98 MEAN CELL HGB (test code=MCH) 27.8 picogram 27.0-33.0 MEAN CELL HGB CONCETRATION (test code=MCHC) 29.9 gram/dL 33.0-36.0 RED CELL DISTRIBUTION WIDTH (test code=RDW) 16.0 % 11.6-16.2 RED CELL DISTRIBUTION WIDTH SD (test code=RDW-SD) 54.2 fL 37.0-51.0 PLATELET COUNT (test code=PLT) 154 K/mm3 150-450 MEAN PLATELET VOLUME (test code=MPV) 10.7 fL 6.7-11.0 IMMATURE GRANULOCYTE % (test code=IG%) 0.6 % 0.0-5.0 NUCLEATED RBC % (test code=NRBC%) 0.0 % 0-0 NEUTROPHIL # (test code=NT#) 12.73 K/mm3 1.8-7.7 IMMATURE GRANULOCYTE # (test code=IG#) 0.09 x10 3/uL 0-0.03 LYMPHOCYTE # (test code=LY#) 0.84 K/mm3 1.0-5.0 MONOCYTE # (test code=MO#) 0.77 K/mm3 0-0.8 EOSINOPHIL # (test code=EO#) 0.12 K/mm3 0.0-0.5 BASOPHIL # (test code=BA#) 0.04 K/mm3 0.0-0.2 NUCLEATED RBC # (test code=NRBC#) 0.00 K/mm3 0.0-0.1 MANUAL DIFF REQUIRED (test code=MDIFF) YES STAIN ACCEPTABILITY (test code=STN ACCEPTABLE) TOTAL CELLS COUNTED (test code=TCC) #CELLS SEGMENTED NEUTROPHILS (test code=SEG) % 39-69 LYMPHOCYTE (test code=LYMPH) % 25-55 MONOCYTE (test code=MON) % 0-10 EOSINOPHIL (test code=EOS) % 0.0-5.0 CABOT RINGS (test code=CAB) MORPHOLOGY COMMENT (test code=MOC) PLATELET ESTIMATE (test code=PLTEST) PLATELET MORPHOLOGY (test code=PLTMORPH) CBC W/MANUAL [id number] 06:27:00* Test Item Value Reference Range Comments WHITE BLOOD CELL (test code=WBC) 14.6 K/mm3 4.5-12.5 RED BLOOD CELL (test code=RBC) 2.91 mill/mm3 3.7-5.2 HEMOGLOBIN (test code=HGB) 8.1 gram/dL 11.5-15.5 HEMATOCRIT (test code=HCT) 27.1 % 36.0-46.0 MEAN CELL VOLUME (test code=MCV) 93.1 fL 80-98 MEAN CELL HGB (test code=MCH) 27.8 picogram 27.0-33.0 MEAN CELL HGB CONCETRATION (test code=MCHC) 29.9 gram/dL 33.0-36.0 RED CELL DISTRIBUTION WIDTH (test code=RDW) 16.0 % 11.6-16.2 RED CELL DISTRIBUTION WIDTH SD (test code=RDW-SD) 54.2 fL 37.0-51.0 PLATELET COUNT (test code=PLT) 154 K/mm3 150-450 MEAN PLATELET VOLUME (test code=MPV) 10.7 fL 6.7-11.0 IMMATURE GRANULOCYTE % (test code=IG%) 0.6 % 0.0-5.0 NUCLEATED RBC % (test code=NRBC%) 0.0 % 0-0 NEUTROPHIL # (test code=NT#) 12.73 K/mm3 1.8-7.7 IMMATURE GRANULOCYTE # (test code=IG#) 0.09 x10 3/uL 0-0.03 LYMPHOCYTE # (test code=LY#) 0.84 K/mm3 1.0-5.0 MONOCYTE # (test code=MO#) 0.77 K/mm3 0-0.8 EOSINOPHIL # (test code=EO#) 0.12 K/mm3 0.0-0.5 BASOPHIL # (test code=BA#) 0.04 K/mm3 0.0-0.2 NUCLEATED RBC # (test code=NRBC#) 0.00 K/mm3 0.0-0.1 MANUAL DIFF REQUIRED (test code=MDIFF) YES STAIN ACCEPTABILITY (test code=STN ACCEPTABLE) TOTAL CELLS COUNTED (test code=TCC) #CELLS SEGMENTED NEUTROPHILS (test code=SEG) % 39-69 LYMPHOCYTE (test code=LYMPH) % 25-55 MONOCYTE (test code=MON) % 0-10 EOSINOPHIL (test code=EOS) % 0.0-5.0 MORPHOLOGY COMMENT (test code=MOC) PLATELET ESTIMATE (test code=PLTEST) PLATELET MORPHOLOGY (test code=PLTMORPH) CBC W/MANUAL [id number] 06:27:00* Test Item Value Reference Range Comments WHITE BLOOD CELL (test code=WBC) 14.6 K/mm3 4.5-12.5 RED BLOOD CELL (test code=RBC) 2.91 mill/mm3 3.7-5.2 HEMOGLOBIN (test code=HGB) 8.1 gram/dL 11.5-15.5 HEMATOCRIT (test code=HCT) 27.1 % 36.0-46.0 MEAN CELL VOLUME (test code=MCV) 93.1 fL 80-98 MEAN CELL HGB (test code=MCH) 27.8 picogram 27.0-33.0 MEAN CELL HGB CONCETRATION (test code=MCHC) 29.9 gram/dL 33.0-36.0 RED CELL DISTRIBUTION WIDTH (test code=RDW) 16.0 % 11.6-16.2 RED CELL DISTRIBUTION WIDTH SD (test code=RDW-SD) 54.2 fL 37.0-51.0 PLATELET COUNT (test code=PLT) 154 K/mm3 150-450 MEAN PLATELET VOLUME (test code=MPV) 10.7 fL 6.7-11.0 IMMATURE GRANULOCYTE % (test code=IG%) 0.6 % 0.0-5.0 NUCLEATED RBC % (test code=NRBC%) 0.0 % 0-0 NEUTROPHIL # (test code=NT#) 12.73 K/mm3 1.8-7.7 IMMATURE GRANULOCYTE # (test code=IG#) 0.09 x10 3/uL 0-0.03 LYMPHOCYTE # (test code=LY#) 0.84 K/mm3 1.0-5.0 MONOCYTE # (test code=MO#) 0.77 K/mm3 0-0.8 EOSINOPHIL # (test code=EO#) 0.12 K/mm3 0.0-0.5 BASOPHIL # (test code=BA#) 0.04 K/mm3 0.0-0.2 NUCLEATED RBC # (test code=NRBC#) 0.00 K/mm3 0.0-0.1 MANUAL DIFF REQUIRED (test code=MDIFF) YES STAIN ACCEPTABILITY (test code=STN ACCEPTABLE) TOTAL CELLS COUNTED (test code=TCC) #CELLS SEGMENTED NEUTROPHILS (test code=SEG) % 39-69 LYMPHOCYTE (test code=LYMPH) % 25-55 MONOCYTE (test code=MON) % 0-10 MORPHOLOGY COMMENT (test code=MOC) PLATELET ESTIMATE (test code=PLTEST) PLATELET MORPHOLOGY (test code=PLTMORPH) CBC W/MANUAL [id number] 06:27:00* Test Item Value Reference Range Comments WHITE BLOOD CELL (test code=WBC) 14.6 K/mm3 4.5-12.5 RED BLOOD CELL (test code=RBC) 2.91 mill/mm3 3.7-5.2 HEMOGLOBIN (test code=HGB) 8.1 gram/dL 11.5-15.5 HEMATOCRIT (test code=HCT) 27.1 % 36.0-46.0 MEAN CELL VOLUME (test code=MCV) 93.1 fL 80-98 MEAN CELL HGB (test code=MCH) 27.8 picogram 27.0-33.0 MEAN CELL HGB CONCETRATION (test code=MCHC) 29.9 gram/dL 33.0-36.0 RED CELL DISTRIBUTION WIDTH (test code=RDW) 16.0 % 11.6-16.2 RED CELL DISTRIBUTION WIDTH SD (test code=RDW-SD) 54.2 fL 37.0-51.0 PLATELET COUNT (test code=PLT) 154 K/mm3 150-450 MEAN PLATELET VOLUME (test code=MPV) 10.7 fL 6.7-11.0 IMMATURE GRANULOCYTE % (test code=IG%) 0.6 % 0.0-5.0 NUCLEATED RBC % (test code=NRBC%) 0.0 % 0-0 NEUTROPHIL # (test code=NT#) 12.73 K/mm3 1.8-7.7 IMMATURE GRANULOCYTE # (test code=IG#) 0.09 x10 3/uL 0-0.03 LYMPHOCYTE # (test code=LY#) 0.84 K/mm3 1.0-5.0 MONOCYTE # (test code=MO#) 0.77 K/mm3 0-0.8 EOSINOPHIL # (test code=EO#) 0.12 K/mm3 0.0-0.5 BASOPHIL # (test code=BA#) 0.04 K/mm3 0.0-0.2 NUCLEATED RBC # (test code=NRBC#) 0.00 K/mm3 0.0-0.1 MANUAL DIFF REQUIRED (test code=MDIFF) YES STAIN ACCEPTABILITY (test code=STN ACCEPTABLE) TOTAL CELLS COUNTED (test code=TCC) #CELLS SEGMENTED NEUTROPHILS (test code=SEG) % 39-69 LYMPHOCYTE (test code=LYMPH) % 25-55 MONOCYTE (test code=MON) % 0-10 EOSINOPHIL (test code=EOS) % 0.0-5.0 CABOT RINGS (test code=CAB) MORPHOLOGY COMMENT (test code=MOC) PLATELET ESTIMATE (test code=PLTEST) PLATELET MORPHOLOGY (test code=PLTMORPH) COMPREHENSIVE METABOLIC [id number] 06:25:00* Test Item Value Reference Range Comments SODIUM (test code=NA) 140 mmol/L 136-145 POTASSIUM (test code=K) 3.7 mmol/L 3.5-5.1 CHLORIDE (test code=CL) 106.0 mmol/L 98-107 CARBON DIOXIDE (test code=CO2) 25.0 mmol/L 21-32 ANION GAP (test code=GAP) 12.7 10-20 GLUCOSE (test code=GLU) 167 mg/dL 74-106 BLOOD UREA NITROGEN (test code=BUN) 32 mg/dL 7-18 GLOMERULAR FILTRATION RATE (test code=GFR) 15 mL/min >=60 Estimated GFR by using Modified MDRD formula.Chronic kidney disease is defined as either kidney damageor GFR <60 mL/min/1.73 m2 for >3 months. CREATININE (test code=CREAT) 3.10 mg/dL 0.55-1.02 Note change in reference range due to change in reagent. BUN/CREATININE RATIO (test code=BUN/CREA) 10.3 10-20 TOTAL PROTEIN (test code=PROT) 6.2 gram/dL 6.4-8.2 ALBUMIN (test code=ALB) 2.8 g/dL 3.4-5.0 GLOBULIN (test code=GLOB) 3.4 gram/dL 2.7-4.2 ALBUMIN/GLOBULIN RATIO (test code=A/G) 0.8 0.75-1.50 CALCIUM (test code=CA) 7.6 mg/dL 8.5-10.1 BILIRUBIN TOTAL (test code=BILT) 0.70 mg/dL 0.0-1.0 SGOT/AST (test code=AST) 17 IUnit/L 15-37 SGPT/ALT (test code=ALT) 14 IUnit/L 12-78 ALKALINE PHOSPHATASE TOTAL (test code=ALKP) 72 IUnit/L 45-117 Note change in reference range due to change in reagent. COMPREHENSIVE METABOLIC [id number] 06:20:00* Test Item Value Reference Range Comments SODIUM (test code=NA) 140 mmol/L 136-145 POTASSIUM (test code=K) 3.7 mmol/L 3.5-5.1 CHLORIDE (test code=CL) 106.0 mmol/L 98-107 CARBON DIOXIDE (test code=CO2) mmol/L 21-32 ANION GAP (test code=GAP) 10-20 GLUCOSE (test code=GLU) mg/dL 74-106 BLOOD UREA NITROGEN (test code=BUN) mg/dL 7-18 GLOMERULAR FILTRATION RATE (test code=GFR) mL/min >=60 CREATININE (test code=CREAT) mg/dL 0.55-1.02 BUN/CREATININE RATIO (test code=BUN/CREA) 10-20 TOTAL PROTEIN (test code=PROT) gram/dL 6.4-8.2 ALBUMIN (test code=ALB) g/dL 3.4-5.0 GLOBULIN (test code=GLOB) gram/dL 2.7-4.2 ALBUMIN/GLOBULIN RATIO (test code=A/G) 0.75-1.50 CALCIUM (test code=CA) mg/dL 8.5-10.1 BILIRUBIN TOTAL (test code=BILT) mg/dL 0.0-1.0 SGOT/AST (test code=AST) IUnit/L 15-37 SGPT/ALT (test code=ALT) IUnit/L 12-78 ALKALINE PHOSPHATASE TOTAL (test code=ALKP) IUnit/L 45-117 BASIC METABOLIC [id number] 06:16:00* Test Item Value Reference Range Comments SODIUM (test code=NA) mmol/L 136-145 POTASSIUM (test code=K) mmol/L 3.5-5.1 CHLORIDE (test code=CL) mmol/L 98-107 CARBON DIOXIDE (test code=CO2) mmol/L 21-32 ANION GAP (test code=GAP) 10-20 GLUCOSE (test code=GLU) mg/dL 74-106 BLOOD UREA NITROGEN (test code=BUN) mg/dL 7-18 GLOMERULAR FILTRATION RATE (test code=GFR) mL/min >=60 CREATININE (test code=CREAT) mg/dL 0.55-1.02 BUN/CREATININE RATIO (test code=BUN/CREA) 10-20 CALCIUM (test code=CA) mg/dL 8.5-10.1 [id number] 06:16:00* Test Item Value Reference Range Comments PHOSPHORUS (test code=PHOS) mg/dL 2.5-4.9 [id number] 06:16:00* Test Item Value Reference Range Comments MAGNESIUM (test code=MAG) mg/dL 1.8-2.4 CALCIUM [id number] 06:16:00* Test Item Value Reference Range Comments CALCIUM IONIZED (test code=FLO) 1.16 mmol/L 1.12-1.32 PROTHROMBIN [id number] 06:10:00* Test Item Value Reference Range Comments PROTHROMBIN TIME PATIENT (test code=PTP) 13.8 seconds 9.0-14.0 INTERNATIONAL NORMAL RATIO (test code=INR) 1.2 0.8-1.2 The therapeutic range for oral anticoagulant therapy formost indications is an international normalized ratio (INR)of between 2.0 and 3.0. The recommended therapeutic INRrange for various clinical situations is listed below: Clinical Situation INR range Pulmonary e mbolism treatment (2.0-3.0)Venous thrombosis treatmentVenous thrombosis prophylaxis (high risk surgery)Prevention of systemic embolism from: Acute myocardial infarction Valvular heart disease Atrial fibrillation Mechanical prosthetic heart valves (2.5-3.5) IS PATIENT ON ANTICOAGULANTS? NTHROMBOPLASTIN TIME [id number] 06:10:00* Test Item Value Reference Range Comments THROMBOPLASTIN TIME PARTIAL (test code=PTT) 27.4 seconds 25.0-36.5 IS PATIENT ON ANTICOAGULANTS? MADELINE NA,[id number] 23:26:00* Test Item Value Reference Range Comments UR NA,RANDOM (test code=BALDO) 63 mmol/L 20-110 [id number] 21:32:00* Test Item Value Reference Range Comments GLUBED (test code=GLUBED) 292 mg/dL 74-106 Performed by certified glazing machine operator at [facility] BASIC METABOLIC [id number] 20:17:00* Test Item Value Reference Range Comments SODIUM (test code=NA) 138 mmol/L 136-145 POTASSIUM (test code=K) 4.0 mmol/L 3.5-5.1 CHLORIDE (test code=CL) 101.0 mmol/L 98-107 CARBON DIOXIDE (test code=CO2) 28.0 mmol/L 21-32 ANION GAP (test code=GAP) 13.0 10-20 GLUCOSE (test code=GLU) 330 mg/dL 74-106 BLOOD UREA NITROGEN (test code=BUN) 34 mg/dL 7-18 RESULT VERIFIED BY REPEAT ANALYSIS GLOMERULAR FILTRATION RATE (test code=GFR) 17 mL/min >=60 Estimated GFR by using Modified MDRD formula.Chronic kidney disease is defined as either kidney damageor GFR <60 mL/min/1.73 m2 for >3 months. CREATININE (test code=CREAT) 2.80 mg/dL 0.55-1.02 Note change in reference range due to change in reagent. BUN/CREATININE RATIO (test code=BUN/CREA) 12.1 10-20 CALCIUM (test code=CA) 7.5 mg/dL 8.5-10.1 [id number] 20:17:00* Test Item Value Reference Range Comments PHOSPHORUS (test code=PHOS) 4.4 mg/dL 2.5-4.9 [id number] 20:17:00* Test Item Value Reference Range Comments MAGNESIUM (test code=MAG) 2.5 mg/dL 1.8-2.4 CALCIUM [id number] 20:17:00* Test Item Value Reference Range Comments CALCIUM IONIZED (test code=FLO) 1.15 mmol/L 1.12-1.32 T4 [id number] 19:29:00* Test Item Value Reference Range Comments T4 FREE (test code=T4F) 1.40 ng/dL 0.76-1.46 THYROID STIMULATING [id number] 19:29:00* Test Item Value Reference Range Comments THYROID STIMULATING HORMONE (test code=TSH) 0.961 uIU/mL 0.36-3.74 TSH REFERENCE RANGES: EUTHYROID: 0.35 - 4.3 mIU/mL HYPO : > 5.5 mIU/mL HYPER : < 0.35 mIU/mL BASIC METABOLIC [id number] 19:15:00* Test Item Value Reference Range Comments SODIUM (test code=NA) 138 mmol/L 136-145 POTASSIUM (test code=K) 4.0 mmol/L 3.5-5.1 CHLORIDE (test code=CL) 101.0 mmol/L 98-107 CARBON DIOXIDE (test code=CO2) mmol/L 21-32 ANION GAP (test code=GAP) 10-20 GLUCOSE (test code=GLU) mg/dL 74-106 BLOOD UREA NITROGEN (test code=BUN) mg/dL 7-18 GLOMERULAR FILTRATION RATE (test code=GFR) mL/min >=60 CREATININE (test code=CREAT) mg/dL 0.55-1.02 BUN/CREATININE RATIO (test code=BUN/CREA) 10-20 CALCIUM (test code=CA) mg/dL 8.5-10.1 [id number] 19:15:00* Test Item Value Reference Range Comments PHOSPHORUS (test code=PHOS) mg/dL 2.5-4.9 [id number] 19:15:00* Test Item Value Reference Range Comments MAGNESIUM (test code=MAG) mg/dL 1.8-2.4 CALCIUM [id number] 19:15:00* Test Item Value Reference Range Comments CALCIUM IONIZED (test code=FLO) 1.15 mmol/L 1.12-1.32 CBC W/MANUAL [id number] 19:07:00* Test Item Value Reference Range Comments WHITE BLOOD CELL (test code=WBC) 16.9 K/mm3 4.5-12.5 RED BLOOD CELL (test code=RBC) 2.44 mill/mm3 3.7-5.2 HEMOGLOBIN (test code=HGB) 7.2 gram/dL 11.5-15.5 HEMATOCRIT (test code=HCT) 22.6 % 36.0-46.0 MEAN CELL VOLUME (test code=MCV) 92.6 fL 80-98 MEAN CELL HGB (test code=MCH) 29.5 picogram 27.0-33.0 MEAN CELL HGB CONCETRATION (test code=MCHC) 31.9 gram/dL 33.0-36.0 RED CELL DISTRIBUTION WIDTH (test code=RDW) 15.9 % 11.6-16.2 RED CELL DISTRIBUTION WIDTH SD (test code=RDW-SD) 53.6 fL 37.0-51.0 PLATELET COUNT (test code=PLT) 186 K/mm3 150-450 MEAN PLATELET VOLUME (test code=MPV) 10.8 fL 6.7-11.0 IMMATURE GRANULOCYTE % (test code=IG%) 0.5 % 0.0-5.0 NUCLEATED RBC % (test code=NRBC%) 0.0 % 0-0 NEUTROPHIL # (test code=NT#) 14.60 K/mm3 1.8-7.7 IMMATURE GRANULOCYTE # (test code=IG#) 0.08 x10 3/uL 0-0.03 LYMPHOCYTE # (test code=LY#) 1.16 K/mm3 1.0-5.0 MONOCYTE # (test code=MO#) 0.98 K/mm3 0-0.8 EOSINOPHIL # (test code=EO#) 0.01 K/mm3 0.0-0.5 BASOPHIL # (test code=BA#) 0.02 K/mm3 0.0-0.2 NUCLEATED RBC # (test code=NRBC#) 0.00 K/mm3 0.0-0.1 MANUAL DIFF REQUIRED (test code=MDIFF) YES STAIN ACCEPTABILITY (test code=STN ACCEPTABLE) STAIN ACCEPTABLE TOTAL CELLS COUNTED (test code=TCC) 113 #CELLS SEGMENTED NEUTROPHILS (test code=SEG) 91.1 % 39-69 BAND NEUTROPHIL (test code=BAND) 1.8 % 0-10 LYMPHOCYTE (test code=LYMPH) 4.4 % 25-55 REACTIVE LYMPH (test code=RELYMPH) 0 % MONOCYTE (test code=MON) 2.7 % 0-10 EOSINOPHIL (test code=EOS) 0 % 0.0-5.0 BASOPHIL (test code=BASO) 0 % 0-1.0 METAMYELOCYTE (test code=META) 0 % 0-0 MYELOCYTE (test code=MYELO) 0 % 0.0-0.0 PROMYELOCYTE (test code=PROM) 0 % 0-0 HYPOCHROMIA (test code=HYPO) 1+ ANISOCYTOSIS (test code=ANISO) 1+ MICROCYTOSIS (test code=MICR) 1+ PLATELET ESTIMATE (test code=PLTEST) ADEQUATE PLATELET MORPHOLOGY (test code=PLTMORPH) NORMAL IMMATURE FORMS (test code=IMMAT) 0 % BASIC METABOLIC [id number] 19:00:00* Test Item Value Reference Range Comments SODIUM (test code=NA) mmol/L 136-145 POTASSIUM (test code=K) mmol/L 3.5-5.1 CHLORIDE (test code=CL) mmol/L 98-107 CARBON DIOXIDE (test code=CO2) mmol/L 21-32 ANION GAP (test code=GAP) 10-20 GLUCOSE (test code=GLU) mg/dL 74-106 BLOOD UREA NITROGEN (test code=BUN) mg/dL 7-18 GLOMERULAR FILTRATION RATE (test code=GFR) mL/min >=60 CREATININE (test code=CREAT) mg/dL 0.55-1.02 BUN/CREATININE RATIO (test code=BUN/CREA) 10-20 CALCIUM (test code=CA) mg/dL 8.5-10.1 [id number] 19:00:00* Test Item Value Reference Range Comments PHOSPHORUS (test code=PHOS) mg/dL 2.5-4.9 [id number] 19:00:00* Test Item Value Reference Range Comments MAGNESIUM (test code=MAG) mg/dL 1.8-2.4 CALCIUM [id number] 19:00:00* Test Item Value Reference Range Comments CALCIUM IONIZED (test code=FLO) 1.15 mmol/L 1.12-1.32 [id number] 18:52:00* Test Item Value Reference Range Comments GLYCOSYLATED HEMOGLOBIN (HA1C) (test code=GLYHGB) 7.2 % HbA1 4.8-6.0 ESTIMATED AVERAGE GLUCOSE (test code=EAG) 160 MG/DL CBC W/MANUAL [id number] 18:36:00* Test Item Value Reference Range Comments WHITE BLOOD CELL (test code=WBC) 16.9 K/mm3 4.5-12.5 RED BLOOD CELL (test code=RBC) 2.44 mill/mm3 3.7-5.2 HEMOGLOBIN (test code=HGB) 7.2 gram/dL 11.5-15.5 HEMATOCRIT (test code=HCT) 22.6 % 36.0-46.0 MEAN CELL VOLUME (test code=MCV) 92.6 fL 80-98 MEAN CELL HGB (test code=MCH) 29.5 picogram 27.0-33.0 MEAN CELL HGB CONCETRATION (test code=MCHC) 31.9 gram/dL 33.0-36.0 RED CELL DISTRIBUTION WIDTH (test code=RDW) 15.9 % 11.6-16.2 RED CELL DISTRIBUTION WIDTH SD (test code=RDW-SD) 53.6 fL 37.0-51.0 PLATELET COUNT (test code=PLT) 186 K/mm3 150-450 MEAN PLATELET VOLUME (test code=MPV) 10.8 fL 6.7-11.0 IMMATURE GRANULOCYTE % (test code=IG%) 0.5 % 0.0-5.0 NUCLEATED RBC % (test code=NRBC%) 0.0 % 0-0 NEUTROPHIL # (test code=NT#) 14.60 K/mm3 1.8-7.7 IMMATURE GRANULOCYTE # (test code=IG#) 0.08 x10 3/uL 0-0.03 LYMPHOCYTE # (test code=LY#) 1.16 K/mm3 1.0-5.0 MONOCYTE # (test code=MO#) 0.98 K/mm3 0-0.8 EOSINOPHIL # (test code=EO#) 0.01 K/mm3 0.0-0.5 BASOPHIL # (test code=BA#) 0.02 K/mm3 0.0-0.2 NUCLEATED RBC # (test code=NRBC#) 0.00 K/mm3 0.0-0.1 MANUAL DIFF REQUIRED (test code=MDIFF) YES STAIN ACCEPTABILITY (test code=STN ACCEPTABLE) TOTAL CELLS COUNTED (test code=TCC) #CELLS SEGMENTED NEUTROPHILS (test code=SEG) % 39-69 LYMPHOCYTE (test code=LYMPH) % 25-55 MONOCYTE (test code=MON) % 0-10 EOSINOPHIL (test code=EOS) % 0.0-5.0 CABOT RINGS (test code=CAB) MORPHOLOGY COMMENT (test code=MOC) PLATELET ESTIMATE (test code=PLTEST) PLATELET MORPHOLOGY (test code=PLTMORPH) CBC W/MANUAL [id number] 18:36:00* Test Item Value Reference Range Comments WHITE BLOOD CELL (test code=WBC) 16.9 K/mm3 4.5-12.5 RED BLOOD CELL (test code=RBC) 2.44 mill/mm3 3.7-5.2 HEMOGLOBIN (test code=HGB) 7.2 gram/dL 11.5-15.5 HEMATOCRIT (test code=HCT) 22.6 % 36.0-46.0 MEAN CELL VOLUME (test code=MCV) 92.6 fL 80-98 MEAN CELL HGB (test code=MCH) 29.5 picogram 27.0-33.0 MEAN CELL HGB CONCETRATION (test code=MCHC) 31.9 gram/dL 33.0-36.0 RED CELL DISTRIBUTION WIDTH (test code=RDW) 15.9 % 11.6-16.2 RED CELL DISTRIBUTION WIDTH SD (test code=RDW-SD) 53.6 fL 37.0-51.0 PLATELET COUNT (test code=PLT) 186 K/mm3 150-450 MEAN PLATELET VOLUME (test code=MPV) 10.8 fL 6.7-11.0 IMMATURE GRANULOCYTE % (test code=IG%) 0.5 % 0.0-5.0 NUCLEATED RBC % (test code=NRBC%) 0.0 % 0-0 NEUTROPHIL # (test code=NT#) 14.60 K/mm3 1.8-7.7 IMMATURE GRANULOCYTE # (test code=IG#) 0.08 x10 3/uL 0-0.03 LYMPHOCYTE # (test code=LY#) 1.16 K/mm3 1.0-5.0 MONOCYTE # (test code=MO#) 0.98 K/mm3 0-0.8 EOSINOPHIL # (test code=EO#) 0.01 K/mm3 0.0-0.5 BASOPHIL # (test code=BA#) 0.02 K/mm3 0.0-0.2 NUCLEATED RBC # (test code=NRBC#) 0.00 K/mm3 0.0-0.1 MANUAL DIFF REQUIRED (test code=MDIFF) YES STAIN ACCEPTABILITY (test code=STN ACCEPTABLE) TOTAL CELLS COUNTED (test code=TCC) #CELLS SEGMENTED NEUTROPHILS (test code=SEG) % 39-69 LYMPHOCYTE (test code=LYMPH) % 25-55 MONOCYTE (test code=MON) % 0-10 EOSINOPHIL (test code=EOS) % 0.0-5.0 CABOT RINGS (test code=CAB) MORPHOLOGY COMMENT (test code=MOC) PLATELET ESTIMATE (test code=PLTEST) PLATELET MORPHOLOGY (test code=PLTMORPH) CBC W/MANUAL [id number] 18:36:00* Test Item Value Reference Range Comments WHITE BLOOD CELL (test code=WBC) 16.9 K/mm3 4.5-12.5 RED BLOOD CELL (test code=RBC) 2.44 mill/mm3 3.7-5.2 HEMOGLOBIN (test code=HGB) 7.2 gram/dL 11.5-15.5 HEMATOCRIT (test code=HCT) 22.6 % 36.0-46.0 MEAN CELL VOLUME (test code=MCV) 92.6 fL 80-98 MEAN CELL HGB (test code=MCH) 29.5 picogram 27.0-33.0 MEAN CELL HGB CONCETRATION (test code=MCHC) 31.9 gram/dL 33.0-36.0 RED CELL DISTRIBUTION WIDTH (test code=RDW) 15.9 % 11.6-16.2 RED CELL DISTRIBUTION WIDTH SD (test code=RDW-SD) 53.6 fL 37.0-51.0 PLATELET COUNT (test code=PLT) 186 K/mm3 150-450 MEAN PLATELET VOLUME (test code=MPV) 10.8 fL 6.7-11.0 IMMATURE GRANULOCYTE % (test code=IG%) 0.5 % 0.0-5.0 NUCLEATED RBC % (test code=NRBC%) 0.0 % 0-0 NEUTROPHIL # (test code=NT#) 14.60 K/mm3 1.8-7.7 IMMATURE GRANULOCYTE # (test code=IG#) 0.08 x10 3/uL 0-0.03 LYMPHOCYTE # (test code=LY#) 1.16 K/mm3 1.0-5.0 MONOCYTE # (test code=MO#) 0.98 K/mm3 0-0.8 EOSINOPHIL # (test code=EO#) 0.01 K/mm3 0.0-0.5 BASOPHIL # (test code=BA#) 0.02 K/mm3 0.0-0.2 NUCLEATED RBC # (test code=NRBC#) 0.00 K/mm3 0.0-0.1 MANUAL DIFF REQUIRED (test code=MDIFF) YES STAIN ACCEPTABILITY (test code=STN ACCEPTABLE) TOTAL CELLS COUNTED (test code=TCC) #CELLS SEGMENTED NEUTROPHILS (test code=SEG) % 39-69 LYMPHOCYTE (test code=LYMPH) % 25-55 MONOCYTE (test code=MON) % 0-10 EOSINOPHIL (test code=EOS) % 0.0-5.0 MORPHOLOGY COMMENT (test code=MOC) PLATELET ESTIMATE (test code=PLTEST) PLATELET MORPHOLOGY (test code=PLTMORPH) CBC W/MANUAL [id number] 18:36:00* Test Item Value Reference Range Comments WHITE BLOOD CELL (test code=WBC) 16.9 K/mm3 4.5-12.5 RED BLOOD CELL (test code=RBC) 2.44 mill/mm3 3.7-5.2 HEMOGLOBIN (test code=HGB) 7.2 gram/dL 11.5-15.5 HEMATOCRIT (test code=HCT) 22.6 % 36.0-46.0 MEAN CELL VOLUME (test code=MCV) 92.6 fL 80-98 MEAN CELL HGB (test code=MCH) 29.5 picogram 27.0-33.0 MEAN CELL HGB CONCETRATION (test code=MCHC) 31.9 gram/dL 33.0-36.0 RED CELL DISTRIBUTION WIDTH (test code=RDW) 15.9 % 11.6-16.2 RED CELL DISTRIBUTION WIDTH SD (test code=RDW-SD) 53.6 fL 37.0-51.0 PLATELET COUNT (test code=PLT) 186 K/mm3 150-450 MEAN PLATELET VOLUME (test code=MPV) 10.8 fL 6.7-11.0 IMMATURE GRANULOCYTE % (test code=IG%) 0.5 % 0.0-5.0 NUCLEATED RBC % (test code=NRBC%) 0.0 % 0-0 NEUTROPHIL # (test code=NT#) 14.60 K/mm3 1.8-7.7 IMMATURE GRANULOCYTE # (test code=IG#) 0.08 x10 3/uL 0-0.03 LYMPHOCYTE # (test code=LY#) 1.16 K/mm3 1.0-5.0 MONOCYTE # (test code=MO#) 0.98 K/mm3 0-0.8 EOSINOPHIL # (test code=EO#) 0.01 K/mm3 0.0-0.5 BASOPHIL # (test code=BA#) 0.02 K/mm3 0.0-0.2 NUCLEATED RBC # (test code=NRBC#) 0.00 K/mm3 0.0-0.1 MANUAL DIFF REQUIRED (test code=MDIFF) YES STAIN ACCEPTABILITY (test code=STN ACCEPTABLE) TOTAL CELLS COUNTED (test code=TCC) #CELLS SEGMENTED NEUTROPHILS (test code=SEG) % 39-69 LYMPHOCYTE (test code=LYMPH) % 25-55 MONOCYTE (test code=MON) % 0-10 MORPHOLOGY COMMENT (test code=MOC) PLATELET ESTIMATE (test code=PLTEST) PLATELET MORPHOLOGY (test code=PLTMORPH) CBC W/MANUAL [id number] 18:36:00* Test Item Value Reference Range Comments WHITE BLOOD CELL (test code=WBC) 16.9 K/mm3 4.5-12.5 RED BLOOD CELL (test code=RBC) 2.44 mill/mm3 3.7-5.2 HEMOGLOBIN (test code=HGB) 7.2 gram/dL 11.5-15.5 HEMATOCRIT (test code=HCT) 22.6 % 36.0-46.0 MEAN CELL VOLUME (test code=MCV) 92.6 fL 80-98 MEAN CELL HGB (test code=MCH) 29.5 picogram 27.0-33.0 MEAN CELL HGB CONCETRATION (test code=MCHC) 31.9 gram/dL 33.0-36.0 RED CELL DISTRIBUTION WIDTH (test code=RDW) 15.9 % 11.6-16.2 RED CELL DISTRIBUTION WIDTH SD (test code=RDW-SD) 53.6 fL 37.0-51.0 PLATELET COUNT (test code=PLT) 186 K/mm3 150-450 MEAN PLATELET VOLUME (test code=MPV) 10.8 fL 6.7-11.0 IMMATURE GRANULOCYTE % (test code=IG%) 0.5 % 0.0-5.0 NUCLEATED RBC % (test code=NRBC%) 0.0 % 0-0 NEUTROPHIL # (test code=NT#) 14.60 K/mm3 1.8-7.7 IMMATURE GRANULOCYTE # (test code=IG#) 0.08 x10 3/uL 0-0.03 LYMPHOCYTE # (test code=LY#) 1.16 K/mm3 1.0-5.0 MONOCYTE # (test code=MO#) 0.98 K/mm3 0-0.8 EOSINOPHIL # (test code=EO#) 0.01 K/mm3 0.0-0.5 BASOPHIL # (test code=BA#) 0.02 K/mm3 0.0-0.2 NUCLEATED RBC # (test code=NRBC#) 0.00 K/mm3 0.0-0.1 MANUAL DIFF REQUIRED (test code=MDIFF) YES STAIN ACCEPTABILITY (test code=STN ACCEPTABLE) TOTAL CELLS COUNTED (test code=TCC) #CELLS SEGMENTED NEUTROPHILS (test code=SEG) % 39-69 LYMPHOCYTE (test code=LYMPH) % 25-55 MONOCYTE (test code=MON) % 0-10 EOSINOPHIL (test code=EOS) % 0.0-5.0 CABOT RINGS (test code=CAB) MORPHOLOGY COMMENT (test code=MOC) PLATELET ESTIMATE (test code=PLTEST) PLATELET MORPHOLOGY (test code=PLTMORPH) - [facility] [id number] 16:21:00 Name: RASJOSÉ MIGUEL PARISNANDEZ [facility] : 1950 Age/S: 67 / F [address] [facility] Unit #: [id number] Loc: [place] [address] Phys: Kameron Vences MD Acct: [id number] Dis Date: Status: PRE IN PHONE #: [phone] Exam Date: 05/12/2018 1120 FAX #: [phone] Reason: EXAMS: CPT CODE: [id number] [facility] ACCESS [id number] Fluoro Time: 120 DAP (Gy m2): 4589 Air Kerma (mGy): 27.04 EXAM: Insertion of a tunneled central line with fluoroscopic and sonographic guidance and removal of a tunneled central line with fluoroscopic guidance; INFORMATION: Sepsis; patient has had a tunneled central line in place since March. She has been referred for removal of this catheter and replacement of a new tunneled central line. TECHNIQUE AND FINDINGS: Informed consent was obtained and the patient was placed supine on the procedure table. Initial fluoroscopic imaging showed the tip of a left IJ tunneled central line positioned in the SVC. The patient's skin in the left neck and infraclavicular region was prepped and draped in the usual sterile fashion. An ultrasound showed a patent left internal jugular vein. 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 Sonographic images were stored in PACS. Xylocaine was administered and the left internal jugular vein was accessed with a micropuncture system, followed by insertion of an 035 guidewire. An 8 [place] peel-away sheath was then advanced into the SVC. A subcutaneous tunnel was created in the usual sterile fashion and a 6 [place] dual-lumen tunneled central line was inserted and was positioned with its tip at the SVC/right atrial junction. Good blood return was noticed; the catheter was sutured to the skin and flushed with heparinized saline. Subsequently, Xylocaine was administered and the indwelling tunneled central line was mobilized by blunt dissection wit h a hemostat and was then removed. Final fluoroscopic image document ed complete removal of this catheter. The placed catheter had been retract ed and was now positioned with its tip at the junction of the brachiocepha lic veins with the SVC. No complications. IMPRESSION: 1. Successful removal of a long-term indwelling tunneled central line with fluoroscopic guidance. 2. Successful insertion of a new tunneled central line using sonographic and fluoroscopic guidance. Fluoroscopy Time: 120 sec CAK : 27.04 mGy DAP : 4589 mGy sq cm PAGE 1 Signed Report (YESSICA NUED) Name: JOSÉ MIGUEL MCGINNIS [facility] : 1950 Age/S: 67 / F [address] [facility] Unit #: [id number] Loc: [place] [address] Phys: Kameron Whiting MD Acct: [id number] Dis Date: Status: PRE IN PHON E #: [phone] Exam Date: 05/12/2018 1120 FAX #: [phone] Reason: EXAMS: CPT CODE: [id number] [facility] ACCESS [id number] Fluoro Time: 120 DAP (Gy m2): 4589 Air Kerma (mGy): 27.04 <Continued> at 1621 Reported and signed by: Elmer Harman M.D. CC: Technologist: Ander Montgomery Trnscb Date/Time: 05/13/2018 (162) Lauren Orig Print D/T: S: 05/13/2018 (0427) PAGE 2 Signed Report - SP FLUORO GUID CTRL ACC DEV 2018-05-13 16:21:00 Name: JOSÉ MIGUEL MCGINNIS [facility] SP : 1950 Age/S: 67 / F [address] Unit #: [id number] Loc: [place] [address] Phys: Kameron Vences MD Acct: [id number] Dis Date: Status: PRE IN PHONE #: [phone] Exam Date: 05/12/2018 1120 FAX #: [phone] Reason: EXAMS: CPT CODE: [id number] SP FLUORO GUID CTRL ACC DEV 00621 Fluoro Time: 120 DAP (Gy m2): 4589 Air Kerma (mGy): 27.04 EXAM: Insertion of a tunneled central line with fluoroscopic and sonographic guidance and removal of a tunneled central line with fluoroscopic guidance; INFORMATION: Sepsis; patient has had a tunneled central line in place since March. She has been referred for removal of this catheter and replacement of a new tunneled central line. TECHNIQUE AND FINDINGS: Informed consent was obtained and the patient was placed supine on the procedure table. Initial fluoroscopic imaging showed the tip of a left IJ tunneled central line positioned in the SVC. The patient's skin in the left neck and infraclavicular region was prepped and draped in the usual sterile fashion. An ultrasound showed a patent left internal jugular vein. 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 Sonographic images were stored in PACS. Xylocaine was administered and the left internal jugular vein was accessed with a micropuncture system, followed by insertion of an 035 guidewire. An 8 Citizen [place] peel-away sheath was then advanced into the SVC. A subcutaneous tunnel was created in the usual sterile fashion and a 6 [place] dual-lumen tunneled central line was inserted and was positioned with its tip at the SVC/right atrial junction. Good blood return was noticed; the catheter was sutured to the skin and flushed with heparinized saline. Subsequently, Xylocaine was administered and the indwelling tunneled central line was mobilized by blunt dissection with a hemostat and was then removed. Final fluoroscopic image documented complete removal of this catheter. The placed catheter had been retracted and was now positioned with its tip at the junction of the brachiocephalic veins with the SVC. No complications. IMPRESSION: 1. Successful removal of a long-term indwelling tunneled central line with fluoroscopic guidance. 2. Successful insertion of a new tunneled central line using sonographic and fluoroscopic guidance. Fluoroscopy Time: 120 sec CAK : 27.04 mGy DAP : 4589 mGy sq cm PAGE 1 Signed Report (YESSICA NUED) Name: JOSÉ MIGUEL MCGINNIS [facility] : 1950 Age/S: 67 / F [address] Unit #: [id number] Loc: [place] [address] Phys: Kameron Whiting MD Acct: [id number] Dis Date: Status: PRE IN PHON E #: [phone] Exam Date: 05/12/2018 1120 FAX #: Reason: EXAMS: CPT CODE: [id number] SP FLUORO GUID CTRL ACC DEV 29230 Fluoro Time: 120 DAP (Gy m2): 4589 Air Kerma (mGy): 27.04 <Continued> at 1621 Reported and signed by: Elmer Harman M.D. CC: Technologist: Ander Montgomery Trnwvb Date/Time: 05/13/2018 (1621) Lauren Orig Print D/T: S: 05/13/2018 (9409) PAGE 2 Signed Report PROCALCITONIN (PCT)2018-05-13 16:02:00* Test Item Value Reference Range Comments PROCALCITONIN (PCT) (test code=PROCAL) 12.27 ng/ml Results called to [id number] by DANDY 05/13/18 1602Critical results verified and read back by Nurse? YConcentration Interpretation (ng/mL) <0.51 Sepsis is not likely. Local bacterial infection is possible. (LOW RISK for progression to Sepsis) 0.51 - 2.00 Sepsis is possible, but other conditions are known to elevate PCT as well. (MODERATE RISK for progression to Sepsis) > 2.00 Sepsis is likely, unless other causes are known. (HIGH RISK for progression to Severe Sepsis or Septic Shock) 10.00 High likelihood of Severe Sepsis or Septic or higher Shock. *Increased PCT levels may not always be related to systemic bacterial infection.*Low PCT levels do not automatically exclude the presence of bacterial infection.*All results should be interpreted taking into account the patients history. - XR CHEST 1 [id number] 14:09:00 FAX: Joshua Healy MD [phone] [place]: St: ADM FAX: Giovana Correa MD [phone] Name: JOSÉ MIGUEL MCGINNIS [facility] : 1950 Age/S: 67/F [address] [facility] Unit #: [id number] [facility] [address] Phys: Giovana Escaalnte MD Acct: [id number] Dis Date: Status: ADM IN PHONE #: [phone] Exam Date: 05/13/2018 1403 FAX #: [phone] Reason: SHORTNESS OF BREATH EXAMS: CPT CODE: [id number] XR CHEST 1 V 26639 HISTORY: Shortness of breath. COMPARISON: Same day. NG tube is unchanged. Left catheter is unchanged as well crossing the midline and tip projecting over the right subclavian vein. Suboptimal inspiration. Dependent changes. Trace left effusion. Cardiomegaly IMPRESSION: No infiltrates or congestion with trace left effusion. Left subclavian catheter with the tip projected over the right subclavian vein region. This is unchanged from previous exam. at 1402 Reported and signed by: Calderon Bryant M.D. CC: Joshua Healy MD; Giovana Escalante MD Technologist: YEIMI MILLER RT (R); STUDENT TECHNOLOGIST Trnscrd Date/Time/By: 05/13/2018 (4762) : By: [email or web address] Orig Print D/T: S: 05/13/2018 (3917) PAGE 1 Signed R eport URINALYSIS [id number] 12:49:00* Test Item Value Reference Range Comments UA COLOR (test code=COLU) YELLOW YELLOW UA APPEARANCE (test code=APPU) TURBID CLEAR UA GLUCOSE DIPSTICK (test code=DGLUU) >=500 mg/dL NEGATIVE UA BILIRUBIN DIPSTICK (test code=BILU) NEGATIVE mg/dL NEGATIVE UA KETONE DIPSTICK (test code=KETU) NEGATIVE mg/dL NEGATIVE UA SPECIFIC GRAVITY (test code=SGU) 1.013 1.001-1.035 UA BLOOD DIPSTICK (test code=BRISEYDA) 1+ (Small) mg/dL NEGATIVE UA PH DIPSTICK (test code=CHON) 6.0 5.0-8.0 UA PROTEIN DIPSTICK (test code=PROU) 100 (2+) mg/dL NEGATIVE UA UROBILINIOGEN DIPSTICK (test code=URO) NEGATIVE mg/dL NEGATIVE UA NITRITE DIPSTICK (test code=ZACKARY) NEGATIVE NEGATIVE UA LEUKOCYTE ESTERASE W REFLEX (test code=LEUUR) 3+ Slikc/uL NEGATIVE UA WBC (test code=WBCU) >50 per HPF 0-5 UA RBC (test code=RBCU) >20 #/HPF 0-5 UA WBC CLUMPS (test code=WBCUCL) >10 /HPF NONE Urine Source? CatheterURINALYSIS [id number] 12:46:00* Test Item Value Reference Range Comments UA COLOR (test code=COLU) YELLOW YELLOW UA APPEARANCE (test code=APPU) TURBID CLEAR UA GLUCOSE DIPSTICK (test code=DGLUU) >=500 mg/dL NEGATIVE UA BILIRUBIN DIPSTICK (test code=BILU) NEGATIVE mg/dL NEGATIVE UA KETONE DIPSTICK (test code=KETU) NEGATIVE mg/dL NEGATIVE UA SPECIFIC GRAVITY (test code=SGU) 1.013 1.001-1.035 UA BLOOD DIPSTICK (test code=BRISEYDA) 1+ (Small) mg/dL NEGATIVE UA PH DIPSTICK (test code=CHON) 6.0 5.0-8.0 UA PROTEIN DIPSTICK (test code=PROU) 100 (2+) mg/dL NEGATIVE UA UROBILINIOGEN DIPSTICK (test code=URO) NEGATIVE mg/dL NEGATIVE UA NITRITE DIPSTICK (test code=ZACKARY) NEGATIVE NEGATIVE UA LEUKOCYTE ESTERASE W REFLEX (test code=LEUUR) 3+ Slick/uL NEGATIVE UA WBC (test code=WBCU) per HPF 0-5 Urine Source? [id number] 12:07:00* Test Item Value Reference Range Comments GLUBED (test code=GLUBED) 485 mg/dL 74-106 Performed by certified glazing machine operator at [facility] - XR CHEST 1 [id number] 07:40:00 FAX: Joshua Healy MD [phone] [place]: B St: ADM FAX: Bouchra Mendez NP [phone] Name: JOSÉ MIGUEL MCGINNIS [facility] : 1950 Age/S: 67/F [address] Unit #: [id number] Loc: [place] Phan [address] Phys: Bouchra Jerez NP Acct: [id number] Dis Date: Status: ADM IN PHONE #: [phone] Exam Date: 05/13/2018529 FAX #: [phone] Reason: post op EXAMS: CPT CODE: [id number] XR CHEST 1 V 88751 EXAM: Chest x-ray, one view; INFORMATION: Chest pain; IMPRESSION: 1. A nasogastric tube has been advanced into the stomach. 2. Otherwise, no major change; cardiomegaly. at 0740 Reported and signed by: Elmer Harman M.D. CC: Joshua Healy MD; Bouchra Jerez NP Technologist: NAIMA Moore Trnscrd Date/Time/By: 05/13/2018 (0740) : By: ChayaGRW Orig Print D/T: S: 05/13/2018 (0769) PAGE 1 Signed Report BASIC METABOLIC [id number] 07:34:00* Test Item Value Reference Range Comments SODIUM (test code=NA) 137 mmol/L 136-145 POTASSIUM (test code=K) 4.1 mmol/L 3.5-5.1 CHLORIDE (test code=CL) 100.0 mmol/L 98-107 CARBON DIOXIDE (test code=CO2) 28.0 mmol/L 21-32 ANION GAP (test code=GAP) 13.1 10-20 GLUCOSE (test code=GLU) 528 mg/dL 74-106 Results called to [id number] by NIESHA 05/13/18 0706Critical results verified and read back by Nurse? Y BLOOD UREA NITROGEN (test code=BUN) 27 mg/dL 7-18 GLOMERULAR FILTRATION RATE (test code=GFR) 20 mL/min >=60 Estimated GFR by using Modified MDRD formula.Chronic kidney disease is defined as either kidney damageor GFR <60 mL/min/1.73 m2 for >3 months. CREATININE (test code=CREAT) 2.40 mg/dL 0.55-1.02 Note change in reference range due to change in reagent. BUN/CREATININE RATIO (test code=BUN/CREA) 11.3 10-20 CALCIUM (test code=CA) 7.1 mg/dL 8.5-10.1 HEPATIC FUNCTION [id number] 07:34:00* Test Item Value Reference Range Comments TOTAL PROTEIN (test code=PROT) 5.1 gram/dL 6.4-8.2 ALBUMIN (test code=ALB) 1.9 g/dL 3.4-5.0 GLOBULIN (test code=GLOB) 3.2 gram/dL 2.7-4.2 ALBUMIN/GLOBULIN RATIO (test code=A/G) 0.6 0.75-1.50 BILIRUBIN TOTAL (test code=BILT) 0.60 mg/dL 0.0-1.0 BILIRUBIN DIRECT (test code=BILD) 0.25 mg/dL 0.0-0.20 SGOT/AST (test code=AST) 24 IUnit/L 15-37 SGPT/ALT (test code=ALT) 17 IUnit/L 12-78 ALKALINE PHOSPHATASE TOTAL (test code=ALKP) 75 IUnit/L 45-117 Note change in reference range due to change in reagent. [id number] 07:34:00* Test Item Value Reference Range Comments PHOSPHORUS (test code=PHOS) 4.8 mg/dL 2.5-4.9 [id number] 07:34:00* Test Item Value Reference Range Comments MAGNESIUM (test code=MAG) 1.0 mg/dL 1.8-2.4 CALCIUM [id number] 07:34:00* Test Item Value Reference Range Comments CALCIUM IONIZED (test code=FLO) 1.07 mmol/L 1.12-1.32 CBC W/AUTO [id number] 07:10:00* Test Item Value Reference Range Comments WHITE BLOOD CELL (test code=WBC) 19.1 K/mm3 4.5-12.5 RED BLOOD CELL (test code=RBC) 2.68 mill/mm3 3.7-5.2 HEMOGLOBIN (test code=HGB) 7.8 gram/dL 11.5-15.5 HEMATOCRIT (test code=HCT) 25.5 % 36.0-46.0 MEAN CELL VOLUME (test code=MCV) 95.1 fL 80-98 MEAN CELL HGB (test code=MCH) 29.1 picogram 27.0-33.0 MEAN CELL HGB CONCETRATION (test code=MCHC) 30.6 gram/dL 33.0-36.0 RED CELL DISTRIBUTION WIDTH (test code=RDW) 15.9 % 11.6-16.2 RED CELL DISTRIBUTION WIDTH SD (test code=RDW-SD) 55.2 fL 37.0-51.0 PLATELET COUNT (test code=PLT) 213 K/mm3 150-450 MEAN PLATELET VOLUME (test code=MPV) 10.5 fL 6.7-11.0 IMMATURE GRANULOCYTE % (test code=IG%) 0.6 % 0.0-5.0 NUCLEATED RBC % (test code=NRBC%) 0.0 % 0-0 NEUTROPHIL # (test code=NT#) 17.38 K/mm3 1.8-7.7 IMMATURE GRANULOCYTE # (test code=IG#) 0.11 x10 3/uL 0-0.03 LYMPHOCYTE # (test code=LY#) 0.94 K/mm3 1.0-5.0 MONOCYTE # (test code=MO#) 0.66 K/mm3 0-0.8 EOSINOPHIL # (test code=EO#) 0.00 K/mm3 0.0-0.5 BASOPHIL # (test code=BA#) 0.02 K/mm3 0.0-0.2 NUCLEATED RBC # (test code=NRBC#) 0.00 K/mm3 0.0-0.1 MANUAL DIFF REQUIRED (test code=MDIFF) YES BASIC METABOLIC [id number] 07:06:00* Test Item Value Reference Range Comments SODIUM (test code=NA) 137 mmol/L 136-145 POTASSIUM (test code=K) 4.1 mmol/L 3.5-5.1 CHLORIDE (test code=CL) 100.0 mmol/L 98-107 CARBON DIOXIDE (test code=CO2) 28.0 mmol/L 21-32 ANION GAP (test code=GAP) 13.1 10-20 GLUCOSE (test code=GLU) 528 mg/dL 74-106 Results called to [id number] by NIESHA 05/13/18 0706Critical results verified and read back by Nurse? Y BLOOD UREA NITROGEN (test code=BUN) 27 mg/dL 7-18 GLOMERULAR FILTRATION RATE (test code=GFR) 20 mL/min >=60 Estimated GFR by using Modified MDRD formula.Chronic kidney disease is defined as either kidney damageor GFR <60 mL/min/1.73 m2 for >3 months. CREATININE (test code=CREAT) 2.40 mg/dL 0.55-1.02 Note change in reference range due to change in reagent. BUN/CREATININE RATIO (test code=BUN/CREA) 11.3 10-20 CALCIUM (test code=CA) 7.1 mg/dL 8.5-10.1 HEPATIC FUNCTION [id number] 07:06:00* Test Item Value Reference Range Comments TOTAL PROTEIN (test code=PROT) gram/dL 6.4-8.2 ALBUMIN (test code=ALB) g/dL 3.4-5.0 GLOBULIN (test code=GLOB) gram/dL 2.7-4.2 ALBUMIN/GLOBULIN RATIO (test code=A/G) 0.75-1.50 BILIRUBIN TOTAL (test code=BILT) mg/dL 0.0-1.0 BILIRUBIN DIRECT (test code=BILD) mg/dL 0.0-0.20 SGOT/AST (test code=AST) IUnit/L 15-37 SGPT/ALT (test code=ALT) IUnit/L 12-78 ALKALINE PHOSPHATASE TOTAL (test code=ALKP) IUnit/L 45-117 [id number] 07:06:00* Test Item Value Reference Range Comments PHOSPHORUS (test code=PHOS) 4.8 mg/dL 2.5-4.9 [id number] 07:06:00* Test Item Value Reference Range Comments MAGNESIUM (test code=MAG) 1.0 mg/dL 1.8-2.4 CALCIUM [id number] 07:06:00* Test Item Value Reference Range Comments CALCIUM IONIZED (test code=FLO) 1.07 mmol/L 1.12-1.32 VENOUS BLOOD [id number] 07:00:00* Test Item Value Reference Range Comments VENOUS BLOOD GAS PH (test code=PHV) 7.32 7.30-7.40 VENOUS BLOOD GAS PCO2 (test code=PCO2V) 46.2 mm Hg 39.0-51.0 VENOUS BLOOD GAS PO2 (test code=PO2V) < 39.6 mm Hg 30.0-50.0 VBG HCO3 (test code=HCO3V) 23.2 mmol/L 17.0-30.0 VBG BASE EXCESS (test code=STACIA) -3.0 mmol/L -5.0-5.0 VENOUS BLOOD GAS O2 SAT. (test code=O2SATV) 57 % 94-98 VENOUS BLOOD GAS FIO2 (test code=FIO2V) 32.0 PT. HGB (test code=PHGBVBG) 11.2 gram/dL 11.5-15.5 VENOUS BLOOD GAS SITE (test code=SITEV) IVC HEMATOCRIT (test code=HCT/VBG) 33 % 42-52 HGB O2 SAT (test code=HBOSAT) 56.6 % 94.00-98.00 CARBOXYHEMOGLOBIN (test code=HOHGBT) 0.1 %totalHg 0.5-1.5 Results called to and read back by Best 06:59 - 05/13/2018; by SUMEET METHEMOGLOBIN (test code=METHGB) 0.5 % 0.0-1.50 CBC W/MANUAL [id number] 06:59:00* Test Item Value Reference Range Comments WHITE BLOOD CELL (test code=WBC) TEST NOT PERFORMED K/mm3 4.5-12.5 Previously reported result: 20.6 K/uc4Tjbard by: JENNIFER on 05/13/18:196596/04/01 0657: WBC previously reported as: 20.6 H K/mm3 BASIC METABOLIC [id number] 06:52:00* Test Item Value Reference Range Comments SODIUM (test code=NA) 137 mmol/L 136-145 POTASSIUM (test code=K) 4.1 mmol/L 3.5-5.1 CHLORIDE (test code=CL) 100.0 mmol/L 98-107 CARBON DIOXIDE (test code=CO2) mmol/L 21-32 ANION GAP (test code=GAP) 10-20 GLUCOSE (test code=GLU) mg/dL 74-106 BLOOD UREA NITROGEN (test code=BUN) mg/dL 7-18 GLOMERULAR FILTRATION RATE (test code=GFR) mL/min >=60 CREATININE (test code=CREAT) mg/dL 0.55-1.02 BUN/CREATININE RATIO (test code=BUN/CREA) 10-20 CALCIUM (test code=CA) mg/dL 8.5-10.1 [id number] 06:52:00* Test Item Value Reference Range Comments PHOSPHORUS (test code=PHOS) mg/dL 2.5-4.9 [id number] 06:52:00* Test Item Value Reference Range Comments MAGNESIUM (test code=MAG) mg/dL 1.8-2.4 CALCIUM [id number] 06:52:00* Test Item Value Reference Range Comments CALCIUM IONIZED (test code=FLO) 1.07 mmol/L 1.12-1.32 BASIC METABOLIC [id number] 06:48:00* Test Item Value Reference Range Comments SODIUM (test code=NA) mmol/L 136-145 POTASSIUM (test code=K) mmol/L 3.5-5.1 CHLORIDE (test code=CL) mmol/L 98-107 CARBON DIOXIDE (test code=CO2) mmol/L 21-32 ANION GAP (test code=GAP) 10-20 GLUCOSE (test code=GLU) mg/dL 74-106 BLOOD UREA NITROGEN (test code=BUN) mg/dL 7-18 GLOMERULAR FILTRATION RATE (test code=GFR) mL/min >=60 CREATININE (test code=CREAT) mg/dL 0.55-1.02 BUN/CREATININE RATIO (test code=BUN/CREA) 10-20 CALCIUM (test code=CA) mg/dL 8.5-10.1 [id number] 06:48:00* Test Item Value Reference Range Comments PHOSPHORUS (test code=PHOS) mg/dL 2.5-4.9 [id number] 06:48:00* Test Item Value Reference Range Comments MAGNESIUM (test code=MAG) mg/dL 1.8-2.4 CALCIUM [id number] 06:48:00* Test Item Value Reference Range Comments CALCIUM IONIZED (test code=FLO) 1.07 mmol/L 1.12-1.32 PROTHROMBIN [id number] 05:40:00* Test Item Value Reference Range Comments PROTHROMBIN TIME PATIENT (test code=PTP) 15.8 seconds 9.0-14.0 INTERNATIONAL NORMAL RATIO (test code=INR) 1.4 0.8-1.2 The therapeutic range for oral anticoagulant therapy formost indications is an international normalized ratio (INR)of between 2.0 and 3.0. The recommended therapeutic INRrange for various clinical situations is listed below: Clinical Situation INR range Pulmonary e mbolism treatment (2.0-3.0)Venous thrombosis treatmentVenous thrombosis prophylaxis (high risk surgery)Prevention of systemic embolism from: Acute myocardial infarction Valvular heart disease Atrial fibrillation Mechanical prosthetic heart valves (2.5-3.5) IS PATIENT ON ANTICOAGULANTS? NTHROMBOPLASTIN TIME [id number] 05:40:00* Test Item Value Reference Range Comments THROMBOPLASTIN TIME PARTIAL (test code=PTT) 32.1 seconds 25.0-36.5 IS PATIENT ON ANTICOAGULANTS? NCOMPREHENSIVE METABOLIC [id number] 05:24:00 * Test Item Value Reference Range Comments SODIUM (test code=NA) 132 mmol/L 136-145 POTASSIUM (test code=K) 5.9 mmol/L 3.5-5.1 CHLORIDE (test code=CL) 96.0 mmol/L 98-107 CARBON DIOXIDE (test code=CO2) mmol/L 21-32 ANION GAP (test code=GAP) 10-20 GLUCOSE (test code=GLU) mg/dL 74-106 BLOOD UREA NITROGEN (test code=BUN) mg/dL 7-18 GLOMERULAR FILTRATION RATE (test code=GFR) mL/min >=60 CREATININE (test code=CREAT) mg/dL 0.55-1.02 BUN/CREATININE RATIO (test code=BUN/CREA) 10-20 TOTAL PROTEIN (test code=PROT) gram/dL 6.4-8.2 ALBUMIN (test code=ALB) g/dL 3.4-5.0 GLOBULIN (test code=GLOB) gram/dL 2.7-4.2 ALBUMIN/GLOBULIN RATIO (test code=A/G) 0.75-1.50 CALCIUM (test code=CA) mg/dL 8.5-10.1 BILIRUBIN TOTAL (test code=BILT) mg/dL 0.0-1.0 SGOT/AST (test code=AST) IUnit/L 15-37 SGPT/ALT (test code=ALT) IUnit/L 12-78 ALKALINE PHOSPHATASE TOTAL (test code=ALKP) IUnit/L 45-117 [id number] 05:24:00* Test Item Value Reference Range Comments PHOSPHORUS (test code=PHOS) mg/dL 2.5-4.9 [id number] 05:24:00* Test Item Value Reference Range Comments MAGNESIUM (test code=MAG) mg/dL 1.8-2.4 CALCIUM [id number] 05:24:00* Test Item Value Reference Range Comments CALCIUM IONIZED (test code=FLO) 1.08 mmol/L 1.12-1.32 COMPREHENSIVE METABOLIC [id number] 05:11:00* Test Item Value Reference Range Comments SODIUM (test code=NA) 132 mmol/L 136-145 POTASSIUM (test code=K) 5.9 mmol/L 3.5-5.1 CHLORIDE (test code=CL) 96.0 mmol/L 98-107 CARBON DIOXIDE (test code=CO2) mmol/L 21-32 ANION GAP (test code=GAP) 10-20 GLUCOSE (test code=GLU) mg/dL 74-106 BLOOD UREA NITROGEN (test code=BUN) mg/dL 7-18 GLOMERULAR FILTRATION RATE (test code=GFR) mL/min >=60 CREATININE (test code=CREAT) mg/dL 0.55-1.02 BUN/CREATININE RATIO (test code=BUN/CREA) 10-20 TOTAL PROTEIN (test code=PROT) gram/dL 6.4-8.2 ALBUMIN (test code=ALB) g/dL 3.4-5.0 GLOBULIN (test code=GLOB) gram/dL 2.7-4.2 ALBUMIN/GLOBULIN RATIO (test code=A/G) 0.75-1.50 CALCIUM (test code=CA) mg/dL 8.5-10.1 BILIRUBIN TOTAL (test code=BILT) mg/dL 0.0-1.0 SGOT/AST (test code=AST) IUnit/L 15-37 SGPT/ALT (test code=ALT) IUnit/L 12-78 ALKALINE PHOSPHATASE TOTAL (test code=ALKP) IUnit/L 45-117 [id number] 05:11:00* Test Item Value Reference Range Comments PHOSPHORUS (test code=PHOS) mg/dL 2.5-4.9 [id number] 05:11:00* Test Item Value Reference Range Comments MAGNESIUM (test code=MAG) mg/dL 1.8-2.4 CALCIUM [id number] 05:11:00* Test Item Value Reference Range Comments CALCIUM IONIZED (test code=FLO) mmol/L 1.12-1.32 CBC W/MANUAL [id number] 04:58:00* Test Item Value Reference Range Comments WHITE BLOOD CELL (test code=WBC) 20.6 K/mm3 4.5-12.5 RED BLOOD CELL (test code=RBC) 2.65 mill/mm3 3.7-5.2 HEMOGLOBIN (test code=HGB) 8.9 gram/dL 11.5-15.5 HEMATOCRIT (test code=HCT) 28.1 % 36.0-46.0 MEAN CELL VOLUME (test code=MCV) 106.0 fL 80-98 MEAN CELL HGB (test code=MCH) 33.6 picogram 27.0-33.0 MEAN CELL HGB CONCETRATION (test code=MCHC) 31.7 gram/dL 33.0-36.0 RED CELL DISTRIBUTION WIDTH (test code=RDW) 16.3 % 11.6-16.2 RED CELL DISTRIBUTION WIDTH SD (test code=RDW-SD) 64.0 fL 37.0-51.0 PLATELET COUNT (test code=PLT) 220 K/mm3 150-450 MEAN PLATELET VOLUME (test code=MPV) 11.0 fL 6.7-11.0 IMMATURE GRANULOCYTE % (test code=IG%) 0.7 % 0.0-5.0 NUCLEATED RBC % (test code=NRBC%) 0.0 % 0-0 NEUTROPHIL # (test code=NT#) 18.95 K/mm3 1.8-7.7 IMMATURE GRANULOCYTE # (test code=IG#) 0.14 x10 3/uL 0-0.03 LYMPHOCYTE # (test code=LY#) 0.84 K/mm3 1.0-5.0 MONOCYTE # (test code=MO#) 0.68 K/mm3 0-0.8 EOSINOPHIL # (test code=EO#) 0.00 K/mm3 0.0-0.5 BASOPHIL # (test code=BA#) 0.02 K/mm3 0.0-0.2 NUCLEATED RBC # (test code=NRBC#) 0.00 K/mm3 0.0-0.1 MANUAL DIFF REQUIRED (test code=MDIFF) YES STAIN ACCEPTABILITY (test code=STN ACCEPTABLE) TOTAL CELLS COUNTED (test code=TCC) #CELLS SEGMENTED NEUTROPHILS (test code=SEG) % 39-69 LYMPHOCYTE (test code=LYMPH) % 25-55 MONOCYTE (test code=MON) % 0-10 MORPHOLOGY COMMENT (test code=MOC) PLATELET ESTIMATE (test code=PLTEST) PLATELET MORPHOLOGY (test code=PLTMORPH) - XR CHEST 1 [id number] 12:01:00 [place]: B St: PRE Name: JOSÉ MIGUEL DAWN [facility] : [birth year] 49 Age/S: 67/F [address] Unit #: [id number] Loc: MARKIE Garcia [address] Phys: Elmer Harman MD Acct: [id number] Dis Date: Status: PRE IN PHONE #: [phone] Exam Date: 05/12/2018 1145 FAX #: [phone] Reason: SBO; sepsis; st.p. L IJ central line; EXAMS: CPT CODE: [id number] XR CHEST 1 V [id number] HISTORY: Left central line placement. COMPARISON: May 07, 2018. Left jugular central line with the tip projected over the SVC without pneumothorax. No acute infiltrates, effusion or congestion is noted. Dependent manzo es. Cardiomegaly. IMPRESSION: L eft jugular central line with the tip projected over the SVC without pne umothorax. No acute infiltrates, effusion or congestion. at 1201 Reported and signed by: Calderon Bryant M.D. CC: Technologist: RT VALORIE(R) Trnscrd Date/Time/By: 9 ([id number]) : By: [email or web address] Orig Print D/T: S: 05/12/2018 ([id number]) PAGE 1 Signed Report COMPREHENSIVE METABOLIC [id number] 07:16:00* Test Item Value Reference Range Comments SODIUM (test code=NA) 136 mmol/L 136-145 POTASSIUM (test code=K) 3.8 mmol/L 3.5-5.1 CHLORIDE (test code=CL) 96.0 mmol/L 98-107 CARBON DIOXIDE (test code=CO2) 31.0 mmol/L 21-32 ANION GAP (test code=GAP) 12.8 10-20 GLUCOSE (test code=GLU) 147 mg/dL 74-106 BLOOD UREA NITROGEN (test code=BUN) 23 mg/dL 7-18 RESULT VERIFIED BY REPEAT ANALYSIS GLOMERULAR FILTRATION RATE (test code=GFR) 55 mL/min >=60 Estimated GFR by using Modified MDRD formula.Chronic kidney disease is defined as either kidney damageor GFR <60 mL/min/1.73 m2 for >3 months. CREATININE (test code=CREAT) 1.00 mg/dL 0.55-1.02 Note change in reference range due to change in reagent. BUN/CREATININE RATIO (test code=BUN/CREA) 23.0 10-20 TOTAL PROTEIN (test code=PROT) 5.8 gram/dL 6.4-8.2 ALBUMIN (test code=ALB) 2.4 g/dL 3.4-5.0 GLOBULIN (test code=GLOB) 3.4 gram/dL 2.7-4.2 ALBUMIN/GLOBULIN RATIO (test code=A/G) 0.7 0.75-1.50 CALCIUM (test code=CA) 8.0 mg/dL 8.5-10.1 BILIRUBIN TOTAL (test code=BILT) 0.80 mg/dL 0.0-1.0 SGOT/AST (test code=AST) 33 IUnit/L 15-37 SGPT/ALT (test code=ALT) 18 IUnit/L 12-78 ALKALINE PHOSPHATASE TOTAL (test code=ALKP) 108 IUnit/L 45-117 Note change in reference range due to change in reagent. [id number] 07:16:00* Test Item Value Reference Range Comments PHOSPHORUS (test code=PHOS) 4.6 mg/dL 2.5-4.9 [id number] 07:16:00* Test Item Value Reference Range Comments MAGNESIUM (test code=MAG) 1.2 mg/dL 1.8-2.4 COMPREHENSIVE METABOLIC [id number] 06:22:00* Test Item Value Reference Range Comments SODIUM (test code=NA) 136 mmol/L 136-145 POTASSIUM (test code=K) 3.8 mmol/L 3.5-5.1 CHLORIDE (test code=CL) 96.0 mmol/L 98-107 CARBON DIOXIDE (test code=CO2) mmol/L 21-32 ANION GAP (test code=GAP) 10-20 GLUCOSE (test code=GLU) mg/dL 74-106 BLOOD UREA NITROGEN (test code=BUN) mg/dL 7-18 GLOMERULAR FILTRATION RATE (test code=GFR) mL/min >=60 CREATININE (test code=CREAT) mg/dL 0.55-1.02 BUN/CREATININE RATIO (test code=BUN/CREA) 10-20 TOTAL PROTEIN (test code=PROT) gram/dL 6.4-8.2 ALBUMIN (test code=ALB) g/dL 3.4-5.0 GLOBULIN (test code=GLOB) gram/dL 2.7-4.2 ALBUMIN/GLOBULIN RATIO (test code=A/G) 0.75-1.50 CALCIUM (test code=CA) mg/dL 8.5-10.1 BILIRUBIN TOTAL (test code=BILT) mg/dL 0.0-1.0 SGOT/AST (test code=AST) IUnit/L 15-37 SGPT/ALT (test code=ALT) IUnit/L 12-78 ALKALINE PHOSPHATASE TOTAL (test code=ALKP) IUnit/L 45-117 [id number] 06:22:00* Test Item Value Reference Range Comments PHOSPHORUS (test code=PHOS) mg/dL 2.5-4.9 [id number] 06:22:00* Test Item Value Reference Range Comments MAGNESIUM (test code=MAG) mg/dL 1.8-2.4 [id number] 06:17:00* Test Item Value Reference Range Comments GLUBED (test code=GLUBED) 141 mg/dL 74-106 Performed by certified glazing machine operator at [facility] [id number] 21:54:00* Test Item Value Reference Range Comments GLUBED (test code=GLUBED) 133 mg/dL 74-106 Performed by certified glazing machine operator at [facility] [id number] 12:21:00* Test Item Value Reference Range Comments GLUBED (test code=GLUBED) 162 mg/dL 74-106 Performed by certified glazing machine operator at [facility] [id number] 08:15:00* Test Item Value Reference Range Comments GLUBED (test code=GLUBED) 140 mg/dL 74-106 Performed by certified glazing machine operator at [facility] COMPREHENSIVE METABOLIC [id number] 07:04:00* Test Item Value Reference Range Comments SODIUM (test code=NA) 137 mmol/L 136-145 POTASSIUM (test code=K) 3.9 mmol/L 3.5-5.1 CHLORIDE (test code=CL) 101.0 mmol/L 98-107 CARBON DIOXIDE (test code=CO2) 30.0 mmol/L 21-32 ANION GAP (test code=GAP) 9.9 10-20 GLUCOSE (test code=GLU) 170 mg/dL 74-106 BLOOD UREA NITROGEN (test code=BUN) 30 mg/dL 7-18 GLOMERULAR FILTRATION RATE (test code=GFR) 55 mL/min >=60 Estimated GFR by using Modified MDRD formula.Chronic kidney disease is defined as either kidney damageor GFR <60 mL/min/1.73 m2 for >3 months. CREATININE (test code=CREAT) 1.00 mg/dL 0.55-1.02 Note change in reference range due to change in reagent. BUN/CREATININE RATIO (test code=BUN/CREA) 30.0 10-20 TOTAL PROTEIN (test code=PROT) 6.5 gram/dL 6.4-8.2 ALBUMIN (test code=ALB) 2.4 g/dL 3.4-5.0 GLOBULIN (test code=GLOB) 4.1 gram/dL 2.7-4.2 ALBUMIN/GLOBULIN RATIO (test code=A/G) 0.6 0.75-1.50 CALCIUM (test code=CA) 9.0 mg/dL 8.5-10.1 BILIRUBIN TOTAL (test code=BILT) 0.60 mg/dL 0.0-1.0 SGOT/AST (test code=AST) 26 IUnit/L 15-37 SGPT/ALT (test code=ALT) 19 IUnit/L 12-78 ALKALINE PHOSPHATASE TOTAL (test code=ALKP) 113 IUnit/L 45-117 Note change in reference range due to change in reagent. [id number] 07:04:00* Test Item Value Reference Range Comments PHOSPHORUS (test code=PHOS) 4.4 mg/dL 2.5-4.9 [id number] 07:04:00* Test Item Value Reference Range Comments MAGNESIUM (test code=MAG) 1.7 mg/dL 1.8-2.4 COMPREHENSIVE METABOLIC [id number] 06:58:00* Test Item Value Reference Range Comments SODIUM (test code=NA) 137 mmol/L 136-145 POTASSIUM (test code=K) 3.9 mmol/L 3.5-5.1 CHLORIDE (test code=CL) 101.0 mmol/L 98-107 CARBON DIOXIDE (test code=CO2) mmol/L 21-32 ANION GAP (test code=GAP) 10-20 GLUCOSE (test code=GLU) mg/dL 74-106 BLOOD UREA NITROGEN (test code=BUN) mg/dL 7-18 GLOMERULAR FILTRATION RATE (test code=GFR) mL/min >=60 CREATININE (test code=CREAT) mg/dL 0.55-1.02 BUN/CREATININE RATIO (test code=BUN/CREA) 10-20 TOTAL PROTEIN (test code=PROT) gram/dL 6.4-8.2 ALBUMIN (test code=ALB) g/dL 3.4-5.0 GLOBULIN (test code=GLOB) gram/dL 2.7-4.2 ALBUMIN/GLOBULIN RATIO (test code=A/G) 0.75-1.50 CALCIUM (test code=CA) mg/dL 8.5-10.1 BILIRUBIN TOTAL (test code=BILT) mg/dL 0.0-1.0 SGOT/AST (test code=AST) IUnit/L 15-37 SGPT/ALT (test code=ALT) IUnit/L 12-78 ALKALINE PHOSPHATASE TOTAL (test code=ALKP) IUnit/L 45-117 [id number] 06:58:00* Test Item Value Reference Range Comments PHOSPHORUS (test code=PHOS) mg/dL 2.5-4.9 [id number] 06:58:00* Test Item Value Reference Range Comments MAGNESIUM (test code=MAG) mg/dL 1.8-2.4 [id number] 06:11:00* Test Item Value Reference Range Comments GLUBED (test code=GLUBED) 161 mg/dL 74-106 Performed by certified glazing machine operator at [facility] [id number] 21:55:00* Test Item Value Reference Range Comments GLUBED (test code=GLUBED) 167 mg/dL 74-106 Performed by certified glazing machine operator at [facility] [id number] 18:02:00* Test Item Value Reference Range Comments GLUBED (test code=GLUBED) 148 mg/dL 74-106 Performed by certified glazing machine operator at [facility] [id number] 12:19:00* Test Item Value Reference Range Comments GLUBED (test code=GLUBED) 160 mg/dL 74-106 Performed by certified glazing machine operator at [facility] [id number] 07:03:00* Test Item Value Reference Range Comments PHOSPHORUS (test code=PHOS) 4.3 mg/dL 2.5-4.9 [id number] 07:03:00* Test Item Value Reference Range Comments MAGNESIUM (test code=MAG) 1.4 mg/dL 1.8-2.4 [id number] 07:01:00* Test Item Value Reference Range Comments PHOSPHORUS (test code=PHOS) mg/dL 2.5-4.9 [id number] 07:01:00* Test Item Value Reference Range Comments MAGNESIUM (test code=MAG) 1.4 mg/dL 1.8-2.4 COMPREHENSIVE METABOLIC [id number] 06:00:00* Test Item Value Reference Range Comments SODIUM (test code=NA) 138 mmol/L 136-145 POTASSIUM (test code=K) 4.2 mmol/L 3.5-5.1 CHLORIDE (test code=CL) 108.0 mmol/L 98-107 CARBON DIOXIDE (test code=CO2) 22.0 mmol/L 21-32 ANION GAP (test code=GAP) 12.2 10-20 GLUCOSE (test code=GLU) 160 mg/dL 74-106 BLOOD UREA NITROGEN (test code=BUN) 41 mg/dL 7-18 RESULT VERIFIED BY REPEAT ANALYSIS GLOMERULAR FILTRATION RATE (test code=GFR) 55 mL/min >=60 Estimated GFR by using Modified MDRD formula.Chronic kidney disease is defined as either kidney damageor GFR <60 mL/min/1.73 m2 for >3 months. CREATININE (test code=CREAT) 1.00 mg/dL 0.55-1.02 Note change in reference range due to change in reagent. BUN/CREATININE RATIO (test code=BUN/CREA) 41.0 10-20 TOTAL PROTEIN (test code=PROT) 6.7 gram/dL 6.4-8.2 ALBUMIN (test code=ALB) 2.5 g/dL 3.4-5.0 GLOBULIN (test code=GLOB) 4.2 gram/dL 2.7-4.2 ALBUMIN/GLOBULIN RATIO (test code=A/G) 0.6 0.75-1.50 CALCIUM (test code=CA) 9.7 mg/dL 8.5-10.1 BILIRUBIN TOTAL (test code=BILT) 0.50 mg/dL 0.0-1.0 SGOT/AST (test code=AST) 29 IUnit/L 15-37 SGPT/ALT (test code=ALT) 20 IUnit/L 12-78 ALKALINE PHOSPHATASE TOTAL (test code=ALKP) 117 IUnit/L 45-117 Note change in reference range due to change in reagent. [id number] 06:00:00* Test Item Value Reference Range Comments PHOSPHORUS (test code=PHOS) 4.1 mg/dL 2.5-4.9 [id number] 06:00:00* Test Item Value Reference Range Comments MAGNESIUM (test code=MAG) 1.3 mg/dL 1.8-2.4 [id number] 05:58:00* Test Item Value Reference Range Comments GLUBED (test code=GLUBED) 157 mg/dL 74-106 Performed by certified glazing machine operator at [facility] COMPREHENSIVE METABOLIC [id number] 05:43:00* Test Item Value Reference Range Comments SODIUM (test code=NA) 138 mmol/L 136-145 POTASSIUM (test code=K) 4.2 mmol/L 3.5-5.1 CHLORIDE (test code=CL) 108.0 mmol/L 98-107 CARBON DIOXIDE (test code=CO2) mmol/L 21-32 ANION GAP (test code=GAP) 10-20 GLUCOSE (test code=GLU) mg/dL 74-106 BLOOD UREA NITROGEN (test code=BUN) mg/dL 7-18 GLOMERULAR FILTRATION RATE (test code=GFR) mL/min >=60 CREATININE (test code=CREAT) mg/dL 0.55-1.02 BUN/CREATININE RATIO (test code=BUN/CREA) 10-20 TOTAL PROTEIN (test code=PROT) gram/dL 6.4-8.2 ALBUMIN (test code=ALB) g/dL 3.4-5.0 GLOBULIN (test code=GLOB) gram/dL 2.7-4.2 ALBUMIN/GLOBULIN RATIO (test code=A/G) 0.75-1.50 CALCIUM (test code=CA) mg/dL 8.5-10.1 BILIRUBIN TOTAL (test code=BILT) mg/dL 0.0-1.0 SGOT/AST (test code=AST) IUnit/L 15-37 SGPT/ALT (test code=ALT) IUnit/L 12-78 ALKALINE PHOSPHATASE TOTAL (test code=ALKP) IUnit/L 45-117 [id number] 05:43:00* Test Item Value Reference Range Comments PHOSPHORUS (test code=PHOS) mg/dL 2.5-4.9 [id number] 05:43:00* Test Item Value Reference Range Comments MAGNESIUM (test code=MAG) mg/dL 1.8-2.4 CBC W/AUTO [id number] 05:19:00* Test Item Value Reference Range Comments WHITE BLOOD CELL (test code=WBC) 6.9 K/mm3 4.5-12.5 RED BLOOD CELL (test code=RBC) 4.53 mill/mm3 3.7-5.2 HEMOGLOBIN (test code=HGB) 12.5 gram/dL 11.5-15.5 HEMATOCRIT (test code=HCT) 41.4 % 36.0-46.0 MEAN CELL VOLUME (test code=MCV) 91.4 fL 80-98 MEAN CELL HGB (test code=MCH) 27.6 picogram 27.0-33.0 MEAN CELL HGB CONCETRATION (test code=MCHC) 30.2 gram/dL 33.0-36.0 RED CELL DISTRIBUTION WIDTH (test code=RDW) 16.3 % 11.6-16.2 RED CELL DISTRIBUTION WIDTH SD (test code=RDW-SD) 55.1 fL 37.0-51.0 PLATELET COUNT (test code=PLT) 247 K/mm3 150-450 MEAN PLATELET VOLUME (test code=MPV) 10.0 fL 6.7-11.0 NEUTROPHIL % (test code=NT%) 55.1 % 39.0-69.0 IMMATURE GRANULOCYTE % (test code=IG%) 0.4 % 0.0-5.0 LYMPHOCYTE % (test code=LY%) 25.4 % 25.0-55.0 MONOCYTE % (test code=MO%) 11.4 % 0.0-10.0 EOSINOPHIL % (test code=EO%) 7.0 % 0.0-5.0 BASOPHIL % (test code=BA%) 0.7 % 0.0-1.0 NUCLEATED RBC % (test code=NRBC%) 0.0 % 0-0 NEUTROPHIL # (test code=NT#) 3.77 K/mm3 1.8-7.7 IMMATURE GRANULOCYTE # (test code=IG#) 0.03 x10 3/uL 0-0.03 LYMPHOCYTE # (test code=LY#) 1.74 K/mm3 1.0-5.0 MONOCYTE # (test code=MO#) 0.78 K/mm3 0-0.8 EOSINOPHIL # (test code=EO#) 0.48 K/mm3 0.0-0.5 BASOPHIL # (test code=BA#) 0.05 K/mm3 0.0-0.2 NUCLEATED RBC # (test code=NRBC#) 0.00 K/mm3 0.0-0.1 [id number] 23:49:00* Test Item Value Reference Range Comments POTASSIUM (test code=K) 4.8 mmol/L 3.5-5.1 [id number] 20:25:00* Test Item Value Reference Range Comments GLUBED (test code=GLUBED) 147 mg/dL 74-106 Performed by certified glazing machine operator at [facility] [id number] 16:23:00* Test Item Value Reference Range Comments GLUBED (test code=GLUBED) 171 mg/dL 74-106 Performed by certified glazing machine operator at [facility] PROTHROMBIN [id number] 13:34:00* Test Item Value Reference Range Comments PROTHROMBIN TIME PATIENT (test code=PTP) 12.5 seconds 9.0-14.0 INTERNATIONAL NORMAL RATIO (test code=INR) 1.1 0.8-1.2 The therapeutic range for oral anticoagulant therapy formost indications is an international normalized ratio (INR)of between 2.0 and 3.0. The recommended therapeutic INRrange for various clinical situations is listed below: Clinical Situation INR range Pulmonary e mbolism treatment (2.0-3.0)Venous thrombosis treatmentVenous thrombosis prophylaxis (high risk surgery)Prevention of systemic embolism from: Acute myocardial infarction Valvular heart disease Atrial fibrillation Mechanical prosthetic heart valves (2.5-3.5) IS PATIENT ON ANTICOAGULANTS? NTHROMBOPLASTIN TIME [id number] 13:34:00* Test Item Value Reference Range Comments THROMBOPLASTIN TIME PARTIAL (test code=PTT) 32.4 seconds 25.0-36.5 IS PATIENT ON ANTICOAGULANTS? [id number] 13:05:00* Test Item Value Reference Range Comments GLUBED (test code=GLUBED) 268 mg/dL 74-106 Performed by certified glazing machine operator at [facility] COMPREHENSIVE METABOLIC [id number] 06:26:00* Test Item Value Reference Range Comments SODIUM (test code=NA) 138 mmol/L 136-145 POTASSIUM (test code=K) 5.3 mmol/L 3.5-5.1 CHLORIDE (test code=CL) 111.0 mmol/L 98-107 CARBON DIOXIDE (test code=CO2) 18.0 mmol/L 21-32 ANION GAP (test code=GAP) 14.3 10-20 GLUCOSE (test code=GLU) 205 mg/dL 74-106 BLOOD UREA NITROGEN (test code=BUN) 57 mg/dL 7-18 GLOMERULAR FILTRATION RATE (test code=GFR) 45 mL/min >=60 Estimated GFR by using Modified MDRD formula.Chronic kidney disease is defined as either kidney damageor GFR <60 mL/min/1.73 m2 for >3 months. CREATININE (test code=CREAT) 1.20 mg/dL 0.55-1.02 Note change in reference range due to change in reagent. BUN/CREATININE RATIO (test code=BUN/CREA) 47.5 10-20 TOTAL PROTEIN (test code=PROT) 7.0 gram/dL 6.4-8.2 ALBUMIN (test code=ALB) 2.7 g/dL 3.4-5.0 GLOBULIN (test code=GLOB) 4.3 gram/dL 2.7-4.2 ALBUMIN/GLOBULIN RATIO (test code=A/G) 0.6 0.75-1.50 CALCIUM (test code=CA) 10.3 mg/dL 8.5-10.1 BILIRUBIN TOTAL (test code=BILT) 0.50 mg/dL 0.0-1.0 SGOT/AST (test code=AST) 27 IUnit/L 15-37 SGPT/ALT (test code=ALT) 18 IUnit/L 12-78 ALKALINE PHOSPHATASE TOTAL (test code=ALKP) 135 IUnit/L 45-117 Note change in reference range due to change in reagent. [id number] 06:26:00* Test Item Value Reference Range Comments PHOSPHORUS (test code=PHOS) 4.3 mg/dL 2.5-4.9 [id number] 06:26:00* Test Item Value Reference Range Comments MAGNESIUM (test code=MAG) 2.1 mg/dL 1.8-2.4 CBC W/AUTO [id number] 06:24:00* Test Item Value Reference Range Comments WHITE BLOOD CELL (test code=WBC) 7.6 K/mm3 4.5-12.5 RED BLOOD CELL (test code=RBC) 4.74 mill/mm3 3.7-5.2 HEMOGLOBIN (test code=HGB) 13.7 gram/dL 11.5-15.5 HEMATOCRIT (test code=HCT) 42.5 % 36.0-46.0 MEAN CELL VOLUME (test code=MCV) 89.7 fL 80-98 MEAN CELL HGB (test code=MCH) 28.9 picogram 27.0-33.0 MEAN CELL HGB CONCETRATION (test code=MCHC) 32.2 gram/dL 33.0-36.0 RED CELL DISTRIBUTION WIDTH (test code=RDW) 16.8 % 11.6-16.2 RED CELL DISTRIBUTION WIDTH SD (test code=RDW-SD) 55.9 fL 37.0-51.0 PLATELET COUNT (test code=PLT) 247 K/mm3 150-450 MEAN PLATELET VOLUME (test code=MPV) 10.0 fL 6.7-11.0 NEUTROPHIL % (test code=NT%) 62.0 % 39.0-69.0 IMMATURE GRANULOCYTE % (test code=IG%) 0.4 % 0.0-5.0 LYMPHOCYTE % (test code=LY%) 20.6 % 25.0-55.0 MONOCYTE % (test code=MO%) 10.5 % 0.0-10.0 EOSINOPHIL % (test code=EO%) 5.7 % 0.0-5.0 BASOPHIL % (test code=BA%) 0.8 % 0.0-1.0 NUCLEATED RBC % (test code=NRBC%) 0.0 % 0-0 NEUTROPHIL # (test code=NT#) 4.72 K/mm3 1.8-7.7 IMMATURE GRANULOCYTE # (test code=IG#) 0.03 x10 3/uL 0-0.03 LYMPHOCYTE # (test code=LY#) 1.57 K/mm3 1.0-5.0 MONOCYTE # (test code=MO#) 0.80 K/mm3 0-0.8 EOSINOPHIL # (test code=EO#) 0.43 K/mm3 0.0-0.5 BASOPHIL # (test code=BA#) 0.06 K/mm3 0.0-0.2 NUCLEATED RBC # (test code=NRBC#) 0.00 K/mm3 0.0-0.1 MANUAL DIFF REQUIRED (test code=MDIFF) NO COMPREHENSIVE METABOLIC [id number] 06:14:00* Test Item Value Reference Range Comments SODIUM (test code=NA) 138 mmol/L 136-145 POTASSIUM (test code=K) 5.3 mmol/L 3.5-5.1 CHLORIDE (test code=CL) 111.0 mmol/L 98-107 CARBON DIOXIDE (test code=CO2) mmol/L 21-32 ANION GAP (test code=GAP) 10-20 GLUCOSE (test code=GLU) mg/dL 74-106 BLOOD UREA NITROGEN (test code=BUN) mg/dL 7-18 GLOMERULAR FILTRATION RATE (test code=GFR) mL/min >=60 CREATININE (test code=CREAT) mg/dL 0.55-1.02 BUN/CREATININE RATIO (test code=BUN/CREA) 10-20 TOTAL PROTEIN (test code=PROT) gram/dL 6.4-8.2 ALBUMIN (test code=ALB) g/dL 3.4-5.0 GLOBULIN (test code=GLOB) gram/dL 2.7-4.2 ALBUMIN/GLOBULIN RATIO (test code=A/G) 0.75-1.50 CALCIUM (test code=CA) mg/dL 8.5-10.1 BILIRUBIN TOTAL (test code=BILT) mg/dL 0.0-1.0 SGOT/AST (test code=AST) IUnit/L 15-37 SGPT/ALT (test code=ALT) IUnit/L 12-78 ALKALINE PHOSPHATASE TOTAL (test code=ALKP) IUnit/L 45-117 [id number] 06:14:00* Test Item Value Reference Range Comments PHOSPHORUS (test code=PHOS) mg/dL 2.5-4.9 [id number] 06:14:00* Test Item Value Reference Range Comments MAGNESIUM (test code=MAG) mg/dL 1.8-2.4 CBC W/AUTO [id number] 06:02:00* Test Item Value Reference Range Comments WHITE BLOOD CELL (test code=WBC) K/mm3 4.5-12.5 RED BLOOD CELL (test code=RBC) mill/mm3 3.7-5.2 HEMOGLOBIN (test code=HGB) 13.7 gram/dL 11.5-15.5 HEMATOCRIT (test code=HCT) 42.5 % 36.0-46.0 MEAN CELL VOLUME (test code=MCV) fL 80-98 MEAN CELL HGB (test code=MCH) picogram 27.0-33.0 MEAN CELL HGB CONCETRATION (test code=MCHC) gram/dL 33.0-36.0 RED CELL DISTRIBUTION WIDTH (test code=RDW) % 11.6-16.2 RED CELL DISTRIBUTION WIDTH SD (test code=RDW-SD) fL 37.0-51.0 PLATELET COUNT (test code=PLT) K/mm3 150-450 MEAN PLATELET VOLUME (test code=MPV) fL 6.7-11.0 NEUTROPHIL % (test code=NT%) % 39.0-69.0 IMMATURE GRANULOCYTE % (test code=IG%) % 0.0-5.0 LYMPHOCYTE % (test code=LY%) % 25.0-55.0 MONOCYTE % (test code=MO%) % 0.0-10.0 EOSINOPHIL % (test code=EO%) % 0.0-5.0 BASOPHIL % (test code=BA%) % 0.0-1.0 NEUTROPHIL # (test code=NT#) K/mm3 1.8-7.7 LYMPHOCYTE # (test code=LY#) K/mm3 1.0-5.0 MONOCYTE # (test code=MO#) K/mm3 0-0.8 EOSINOPHIL # (test code=EO#) K/mm3 0.0-0.5 BASOPHIL # (test code=BA#) K/mm3 0.0-0.2 [id number] 05:44:00* Test Item Value Reference Range Comments GLUBED (test code=GLUBED) 191 mg/dL 74-106 Performed by certified glazing machine operator at [facility] [id number] 21:04:00* Test Item Value Reference Range Comments GLUBED (test code=GLUBED) 212 mg/dL 74-106 Performed by certified glazing machine operator at [facility] [id number] 16:46:00* Test Item Value Reference Range Comments GLUBED (test code=GLUBED) 215 mg/dL 74-106 Performed by certified glazing machine operator at [facility] [id number] 11:52:00* Test Item Value Reference Range Comments GLUBED (test code=GLUBED) 236 mg/dL 74-106 Performed by certified glazing machine operator at [facility] [id number] 09:48:00* Test Item Value Reference Range Comments GLUBED (test code=GLUBED) 172 mg/dL 74-106 Performed by certified glazing machine operator at [facility] COMPREHENSIVE METABOLIC [id number] 06:12:00* Test Item Value Reference Range Comments SODIUM (test code=NA) 136 mmol/L 136-145 POTASSIUM (test code=K) 5.1 mmol/L 3.5-5.1 CHLORIDE (test code=CL) 108.0 mmol/L 98-107 CARBON DIOXIDE (test code=CO2) 21.0 mmol/L 21-32 ANION GAP (test code=GAP) 12.1 10-20 GLUCOSE (test code=GLU) 173 mg/dL 74-106 BLOOD UREA NITROGEN (test code=BUN) 60 mg/dL 7-18 GLOMERULAR FILTRATION RATE (test code=GFR) 49 mL/min >=60 Estimated GFR by using Modified MDRD formula.Chronic kidney disease is defined as either kidney damageor GFR <60 mL/min/1.73 m2 for >3 months. CREATININE (test code=CREAT) 1.10 mg/dL 0.55-1.02 Note change in reference range due to change in reagent. BUN/CREATININE RATIO (test code=BUN/CREA) 54.5 10-20 TOTAL PROTEIN (test code=PROT) 7.5 gram/dL 6.4-8.2 ALBUMIN (test code=ALB) 2.7 g/dL 3.4-5.0 GLOBULIN (test code=GLOB) 4.8 gram/dL 2.7-4.2 ALBUMIN/GLOBULIN RATIO (test code=A/G) 0.6 0.75-1.50 CALCIUM (test code=CA) 10.2 mg/dL 8.5-10.1 BILIRUBIN TOTAL (test code=BILT) 0.50 mg/dL 0.0-1.0 SGOT/AST (test code=AST) 32 IUnit/L 15-37 SGPT/ALT (test code=ALT) 19 IUnit/L 12-78 ALKALINE PHOSPHATASE TOTAL (test code=ALKP) 127 IUnit/L 45-117 Note change in reference range due to change in reagent. Are CHOL,TRIG & HDL ordered? [id number] 06:12:00* Test Item Value Reference Range Comments PHOSPHORUS (test code=PHOS) 3.8 mg/dL 2.5-4.9 Are CHOL,TRIG & HDL ordered? [id number] 06:12:00* Test Item Value Reference Range Comments TRIGLYCERIDES (test code=TRIG) 413 mg/dL 20-150 Are CHOL,TRIG & HDL ordered? [id number] 06:12:00* Test Item Value Reference Range Comments MAGNESIUM (test code=MAG) 1.5 mg/dL 1.8-2.4 Are CHOL,TRIG & HDL ordered? NOCOMPREHENSIVE METABOLIC [id number] 06:04:00 * Test Item Value Reference Range Comments SODIUM (test code=NA) 136 mmol/L 136-145 POTASSIUM (test code=K) 5.1 mmol/L 3.5-5.1 CHLORIDE (test code=CL) 108.0 mmol/L 98-107 CARBON DIOXIDE (test code=CO2) mmol/L 21-32 ANION GAP (test code=GAP) 10-20 GLUCOSE (test code=GLU) mg/dL 74-106 BLOOD UREA NITROGEN (test code=BUN) mg/dL 7-18 GLOMERULAR FILTRATION RATE (test code=GFR) mL/min >=60 CREATININE (test code=CREAT) mg/dL 0.55-1.02 BUN/CREATININE RATIO (test code=BUN/CREA) 10-20 TOTAL PROTEIN (test code=PROT) gram/dL 6.4-8.2 ALBUMIN (test code=ALB) g/dL 3.4-5.0 GLOBULIN (test code=GLOB) gram/dL 2.7-4.2 ALBUMIN/GLOBULIN RATIO (test code=A/G) 0.75-1.50 CALCIUM (test code=CA) mg/dL 8.5-10.1 BILIRUBIN TOTAL (test code=BILT) mg/dL 0.0-1.0 SGOT/AST (test code=AST) IUnit/L 15-37 SGPT/ALT (test code=ALT) IUnit/L 12-78 ALKALINE PHOSPHATASE TOTAL (test code=ALKP) IUnit/L 45-117 Are CHOL,TRIG & HDL ordered? [id number] 06:04:00* Test Item Value Reference Range Comments PHOSPHORUS (test code=PHOS) mg/dL 2.5-4.9 Are CHOL,TRIG & HDL ordered? [id number] 06:04:00* Test Item Value Reference Range Comments TRIGLYCERIDES (test code=TRIG) mg/dL 20-150 Are CHOL,TRIG & HDL ordered? [id number] 06:04:00* Test Item Value Reference Range Comments MAGNESIUM (test code=MAG) mg/dL 1.8-2.4 Are CHOL,TRIG & HDL ordered? NOCBC W/AUTO [id number] 05:47:00* Test Item Value Reference Range Comments WHITE BLOOD CELL (test code=WBC) 9.8 K/mm3 4.5-12.5 RED BLOOD CELL (test code=RBC) 4.59 mill/mm3 3.7-5.2 HEMOGLOBIN (test code=HGB) 13.2 gram/dL 11.5-15.5 HEMATOCRIT (test code=HCT) 40.6 % 36.0-46.0 MEAN CELL VOLUME (test code=MCV) 88.5 fL 80-98 MEAN CELL HGB (test code=MCH) 28.8 picogram 27.0-33.0 MEAN CELL HGB CONCETRATION (test code=MCHC) 32.5 gram/dL 33.0-36.0 RED CELL DISTRIBUTION WIDTH (test code=RDW) 17.2 % 11.6-16.2 RED CELL DISTRIBUTION WIDTH SD (test code=RDW-SD) 55.2 fL 37.0-51.0 PLATELET COUNT (test code=PLT) 269 K/mm3 150-450 MEAN PLATELET VOLUME (test code=MPV) 10.6 fL 6.7-11.0 NEUTROPHIL % (test code=NT%) 61.5 % 39.0-69.0 IMMATURE GRANULOCYTE % (test code=IG%) 0.5 % 0.0-5.0 LYMPHOCYTE % (test code=LY%) 13.3 % 25.0-55.0 MONOCYTE % (test code=MO%) 7.7 % 0.0-10.0 EOSINOPHIL % (test code=EO%) 16.2 % 0.0-5.0 BASOPHIL % (test code=BA%) 0.8 % 0.0-1.0 NUCLEATED RBC % (test code=NRBC%) 0.0 % 0-0 NEUTROPHIL # (test code=NT#) 6.02 K/mm3 1.8-7.7 IMMATURE GRANULOCYTE # (test code=IG#) 0.05 x10 3/uL 0-0.03 LYMPHOCYTE # (test code=LY#) 1.30 K/mm3 1.0-5.0 MONOCYTE # (test code=MO#) 0.75 K/mm3 0-0.8 EOSINOPHIL # (test code=EO#) 1.59 K/mm3 0.0-0.5 BASOPHIL # (test code=BA#) 0.08 K/mm3 0.0-0.2 NUCLEATED RBC # (test code=NRBC#) 0.00 K/mm3 0.0-0.1 [id number] 21:17:00* Test Item Value Reference Range Comments GLUBED (test code=GLUBED) 115 mg/dL 74-106 Performed by certified glazing machine operator at [facility] [id number] 20:28:00* Test Item Value Reference Range Comments TROPONIN-I (test code=TROPI) 0.631 ng/mL 0-0.045 COMMENTS TO AUTOMOTIVE SALES REPRESENTATIVE: COLLECT 3 HOURS AFTER PREVIOUS SAMPLECOMPREHENSIVE METABOLIC [id number] 12:44:00* Test Item Value Reference Range Comments SODIUM (test code=NA) 135 mmol/L 136-145 RESULT VERIFIED BY REPEAT ANALYSIS POTASSIUM (test code=K) 4.7 mmol/L 3.5-5.1 CHLORIDE (test code=CL) 107.0 mmol/L 98-107 CARBON DIOXIDE (test code=CO2) 20.0 mmol/L 21-32 ANION GAP (test code=GAP) 12.7 10-20 GLUCOSE (test code=GLU) 210 mg/dL 74-106 BLOOD UREA NITROGEN (test code=BUN) 63 mg/dL 7-18 RESULT VERIFIED BY REPEAT ANALYSIS GLOMERULAR FILTRATION RATE (test code=GFR) 45 mL/min >=60 Estimated GFR by using Modified MDRD formula.Chronic kidney disease is defined as either kidney damageor GFR <60 mL/min/1.73 m2 for >3 months. CREATININE (test code=CREAT) 1.20 mg/dL 0.55-1.02 Note change in reference range due to change in reagent. BUN/CREATININE RATIO (test code=BUN/CREA) 52.5 10-20 TOTAL PROTEIN (test code=PROT) 6.6 gram/dL 6.4-8.2 ALBUMIN (test code=ALB) 2.2 g/dL 3.4-5.0 GLOBULIN (test code=GLOB) 4.4 gram/dL 2.7-4.2 ALBUMIN/GLOBULIN RATIO (test code=A/G) 0.5 0.75-1.50 CALCIUM (test code=CA) 9.7 mg/dL 8.5-10.1 BILIRUBIN TOTAL (test code=BILT) 0.30 mg/dL 0.0-1.0 SGOT/AST (test code=AST) 23 IUnit/L 15-37 SGPT/ALT (test code=ALT) 18 IUnit/L 12-78 ALKALINE PHOSPHATASE TOTAL (test code=ALKP) 90 IUnit/L 45-117 Note change in reference range due to change in reagent. [id number] 11:34:00* Test Item Value Reference Range Comments GLUBED (test code=GLUBED) 170 mg/dL 74-106 Performed by certified glazing machine operator at [facility] [id number] 11:26:00* Test Item Value Reference Range Comments TROPONIN-I (test code=TROPI) 0.609 ng/mL 0-0.045 COMMENTS TO AUTOMOTIVE SALES REPRESENTATIVE: COLLECT 3 HOURS AFTER PREVIOUS SAMPLECBC W/AUTO [id number] 11:01:00* Test Item Value Reference Range Comments WHITE BLOOD CELL (test code=WBC) 7.9 K/mm3 4.5-12.5 RED BLOOD CELL (test code=RBC) 2.71 mill/mm3 3.7-5.2 HEMOGLOBIN (test code=HGB) 7.8 gram/dL 11.5-15.5 HEMATOCRIT (test code=HCT) 25.7 % 36.0-46.0 MEAN CELL VOLUME (test code=MCV) 94.8 fL 80-98 RESULT VERIFIED BY REPEAT ANALYSIS MEAN CELL HGB (test code=MCH) 28.8 picogram 27.0-33.0 MEAN CELL HGB CONCETRATION (test code=MCHC) 30.4 gram/dL 33.0-36.0 RED CELL DISTRIBUTION WIDTH (test code=RDW) 16.9 % 11.6-16.2 RED CELL DISTRIBUTION WIDTH SD (test code=RDW-SD) 58.9 fL 37.0-51.0 PLATELET COUNT (test code=PLT) 283 K/mm3 150-450 MEAN PLATELET VOLUME (test code=MPV) 11.2 fL 6.7-11.0 NEUTROPHIL % (test code=NT%) 57.5 % 39.0-69.0 IMMATURE GRANULOCYTE % (test code=IG%) 0.8 % 0.0-5.0 LYMPHOCYTE % (test code=LY%) 16.3 % 25.0-55.0 MONOCYTE % (test code=MO%) 9.1 % 0.0-10.0 EOSINOPHIL % (test code=EO%) 15.9 % 0.0-5.0 BASOPHIL % (test code=BA%) 0.4 % 0.0-1.0 NUCLEATED RBC % (test code=NRBC%) 0.0 % 0-0 NEUTROPHIL # (test code=NT#) 4.54 K/mm3 1.8-7.7 IMMATURE GRANULOCYTE # (test code=IG#) 0.06 x10 3/uL 0-0.03 LYMPHOCYTE # (test code=LY#) 1.29 K/mm3 1.0-5.0 MONOCYTE # (test code=MO#) 0.72 K/mm3 0-0.8 EOSINOPHIL # (test code=EO#) 1.26 K/mm3 0.0-0.5 BASOPHIL # (test code=BA#) 0.03 K/mm3 0.0-0.2 NUCLEATED RBC # (test code=NRBC#) 0.00 K/mm3 0.0-0.1 MANUAL DIFF REQUIRED (test code=MDIFF) NO BASIC METABOLIC [id number] 09:29:00* Test Item Value Reference Range Comments SODIUM (test code=NA) 123 mmol/L 136-145 Results called to [id number] by V.LAB. 05/07/18 0928Critical results verified and read back by Nurse? Y POTASSIUM (test code=K) 5.5 mmol/L 3.5-5.1 CHLORIDE (test code=CL) 93.0 mmol/L 98-107 CARBON DIOXIDE (test code=CO2) 16.0 mmol/L 21-32 ANION GAP (test code=GAP) 19.5 10-20 GLUCOSE (test code=GLU) 6697 mg/dL 74-106 Results called to [id number] by V.LAB. 05/07/18 0928Critical results verified and read back by Nurse? Y BLOOD UREA NITROGEN (test code=BUN) 52 mg/dL 7-18 GLOMERULAR FILTRATION RATE (test code=GFR) 16 mL/min >=60 Estimated GFR by using Modified MDRD formula.Chronic kidney disease is defined as either kidney damageor GFR <60 mL/min/1.73 m2 for >3 months. CREATININE (test code=CREAT) 2.90 mg/dL 0.55-1.02 Note change in reference range due to change in reagent. BUN/CREATININE RATIO (test code=BUN/CREA) 17.9 10-20 CALCIUM (test code=CA) 9.3 mg/dL 8.5-10.1 [id number] 09:29:00* Test Item Value Reference Range Comments TROPONIN-I (test code=TROPI) 0.433 ng/mL 0-0.045 Results called to [id number] by V.LAB. 05/07/18 0928Critical results verified and read back by Nurse? Y CBC W/O [id number] 07:37:00* Test Item Value Reference Range Comments WHITE BLOOD CELL (test code=WBC) 6.8 K/mm3 4.5-12.5 RED BLOOD CELL (test code=RBC) 2.35 mill/mm3 3.7-5.2 HEMOGLOBIN (test code=HGB) 7.1 gram/dL 11.5-15.5 HEMATOCRIT (test code=HCT) 30.1 % 36.0-46.0 MEAN CELL VOLUME (test code=MCV) 128.1 fL 80-98 MEAN CELL HGB (test code=MCH) 30.2 picogram 27.0-33.0 MEAN CELL HGB CONCETRATION (test code=MCHC) 23.6 gram/dL 33.0-36.0 RED CELL DISTRIBUTION WIDTH (test code=RDW) 17.5 % 11.6-16.2 PLATELET COUNT (test code=PLT) 239 K/mm3 150-450 MEAN PLATELET VOLUME (test code=MPV) 10.5 fL 6.7-11.0 - XR CHEST 1 [id number] 06:25:00 FAX: Avila Allen MD [phone] [place]: St: REG Name: JOSÉ MIGUEL DAWN [facility] : [birth year] 49 Age/S: 67/F [address] [facility] Unit #: [id number] Loc: [place] [address] Phys: Avila Allen MD Acct: [id number] Dis Date: Status: REG ER PHONE #: [phone] Exam Date: 05/07/2018613 FAX #: [phone] Reason: CHEST PAIN EXAMS: CPT CODE: [id number] XR CHEST 1 V 30092 AFTER HOURS SERVICE ON: 05/07/2018 6:25 AM AP Portable Chest Location Code M12 HISTORY: CHEST PAIN FINDINGS: There are no in filtrates. There are no pleural effusions. There is no pneumothorax. Cardi ac silhouette and mediastinum appear within normal limits. IMPRESSION: No active pulmonary findings. at 0625 Reported and signed by: Mg Erickson M.D. CC: Avila Allen MD Technologist: NAIMA BUSBY JR Trnscrd Date/Time/By: 05/07/2018 (624) : By: [email or web address] Orig Print D/T: S: 05/07/2018 (0618) PAGE 1 Signed Report [id number] 16:26:00 * Test Item Value Reference Range Comments GLUBED (test code=GLUBED) 97 mg/dL 74-106 Performed by certified glazing machine operator at [facility] [id number] 12:21:00* Test Item Value Reference Range Comments GLUBED (test code=GLUBED) 176 mg/dL 74-106 Performed by certified glazing machine operator at [facility] [id number] 12:21:00* Test Item Value Reference Range Comments GLUBED (test code=GLUBED) 264 mg/dL 74-106 Performed by certified glazing machine operator at [facility] [id number] 10:40:00* Test Item Value Reference Range Comments POTASSIUM (test code=K) 5.2 mmol/L 3.5-5.1 0830COMMENTS TO AUTOMOTIVE SALES REPRESENTATIVE: PERIPHERAL STICK. NOT FROM IV LINESPECIMEN COMMENT S: DO NOT USE BUTTERFLY NEEDLECOMPREHENSIVE METABOLIC [id number] 07:36:00* Test Item Value Reference Range Comments SODIUM (test code=NA) 135 mmol/L 136-145 POTASSIUM (test code=K) 5.4 mmol/L 3.5-5.1 CHLORIDE (test code=CL) 103.0 mmol/L 98-107 CARBON DIOXIDE (test code=CO2) 22.0 mmol/L 21-32 ANION GAP (test code=GAP) 15.4 10-20 GLUCOSE (test code=GLU) 262 mg/dL 74-106 BLOOD UREA NITROGEN (test code=BUN) 43 mg/dL 7-18 GLOMERULAR FILTRATION RATE (test code=GFR) 32 mL/min >=60 Estimated GFR by using Modified MDRD formula.Chronic kidney disease is defined as either kidney damageor GFR <60 mL/min/1.73 m2 for >3 months. CREATININE (test code=CREAT) 1.60 mg/dL 0.55-1.02 Note change in reference range due to change in reagent. BUN/CREATININE RATIO (test code=BUN/CREA) 26.4 10-20 TOTAL PROTEIN (test code=PROT) 5.9 gram/dL 6.4-8.2 ALBUMIN (test code=ALB) 1.9 g/dL 3.4-5.0 GLOBULIN (test code=GLOB) 4.0 gram/dL 2.7-4.2 ALBUMIN/GLOBULIN RATIO (test code=A/G) 0.5 0.75-1.50 CALCIUM (test code=CA) 7.8 mg/dL 8.5-10.1 BILIRUBIN TOTAL (test code=BILT) 0.30 mg/dL 0.0-1.0 SGOT/AST (test code=AST) 18 IUnit/L 15-37 SGPT/ALT (test code=ALT) 19 IUnit/L 12-78 ALKALINE PHOSPHATASE TOTAL (test code=ALKP) 98 IUnit/L 45-117 Note change in reference range due to change in reagent. PATIENT HAS A LINE OLAMIDE MONTENEGRO WILL COLLECT V.LAB. [id number] 2018-04-04 07:36:00* Test Item Value Reference Range Comments PHOSPHORUS (test code=PHOS) 4.3 mg/dL 2.5-4.9 PATIENT HAS A LINE OLAMIDE MONTENEGRO WILL COLLECT V.LAB.EP [id number] 2018-04-04 07:36:00* Test Item Value Reference Range Comments MAGNESIUM (test code=MAG) 1.9 mg/dL 1.8-2.4 PATIENT HAS A LINE OLAMIDE MONTENEGRO WILL COLLECT V.LAB.EP [id number] METABOLIC [id number] 07:32:00* Test Item Value Reference Range Comments SODIUM (test code=NA) 135 mmol/L 136-145 POTASSIUM (test code=K) 5.4 mmol/L 3.5-5.1 CHLORIDE (test code=CL) 103.0 mmol/L 98-107 CARBON DIOXIDE (test code=CO2) mmol/L 21-32 ANION GAP (test code=GAP) 10-20 GLUCOSE (test code=GLU) mg/dL 74-106 BLOOD UREA NITROGEN (test code=BUN) mg/dL 7-18 GLOMERULAR FILTRATION RATE (test code=GFR) mL/min >=60 CREATININE (test code=CREAT) mg/dL 0.55-1.02 BUN/CREATININE RATIO (test code=BUN/CREA) 10-20 TOTAL PROTEIN (test code=PROT) gram/dL 6.4-8.2 ALBUMIN (test code=ALB) g/dL 3.4-5.0 GLOBULIN (test code=GLOB) gram/dL 2.7-4.2 ALBUMIN/GLOBULIN RATIO (test code=A/G) 0.75-1.50 CALCIUM (test code=CA) mg/dL 8.5-10.1 BILIRUBIN TOTAL (test code=BILT) mg/dL 0.0-1.0 SGOT/AST (test code=AST) IUnit/L 15-37 SGPT/ALT (test code=ALT) IUnit/L 12-78 ALKALINE PHOSPHATASE TOTAL (test code=ALKP) IUnit/L 45-117 PATIENT HAS A LINE OLAMIDE MONTENEGRO WILL COLLECT V.LAB.EP [id number] 2018-04-04 07:32:00* Test Item Value Reference Range Comments PHOSPHORUS (test code=PHOS) mg/dL 2.5-4.9 PATIENT HAS A LINE OLAMIDE MONTENEGRO WILL COLLECT V.LAB.EP [id number] 2018-04-04 07:32:00* Test Item Value Reference Range Comments MAGNESIUM (test code=MAG) mg/dL 1.8-2.4 PATIENT HAS A LINE OLAMIDE MONTENEGRO WILL COLLECT V.LAB.EP [id number] 21:49:00* Test Item Value Reference Range Comments GLUBED (test code=GLUBED) 139 mg/dL 74-106 Performed by certified glazing machine operator at [facility] [id number] 15:23:00* Test Item Value Reference Range Comments GLUBED (test code=GLUBED) 146 mg/dL 74-106 Performed by certified glazing machine operator at [facility] [id number] 11:18:00* Test Item Value Reference Range Comments GLUBED (test code=GLUBED) 203 mg/dL 74-106 Performed by certified glazing machine operator at [facility] BASIC METABOLIC [id number] 08:28:00* Test Item Value Reference Range Comments SODIUM (test code=NA) 135 mmol/L 136-145 POTASSIUM (test code=K) 4.4 mmol/L 3.5-5.1 CHLORIDE (test code=CL) 102.0 mmol/L 98-107 CARBON DIOXIDE (test code=CO2) 23.0 mmol/L 21-32 ANION GAP (test code=GAP) 14.4 10-20 GLUCOSE (test code=GLU) 258 mg/dL 74-106 BLOOD UREA NITROGEN (test code=BUN) 44 mg/dL 7-18 GLOMERULAR FILTRATION RATE (test code=GFR) 32 mL/min >=60 Estimated GFR by using Modified MDRD formula.Chronic kidney disease is defined as either kidney damageor GFR <60 mL/min/1.73 m2 for >3 months. CREATININE (test code=CREAT) 1.60 mg/dL 0.55-1.02 Note change in reference range due to change in reagent. BUN/CREATININE RATIO (test code=BUN/CREA) 27.2 10-20 CALCIUM (test code=CA) 7.8 mg/dL 8.5-10.1 BASIC METABOLIC [id number] 08:24:00* Test Item Value Reference Range Comments SODIUM (test code=NA) 135 mmol/L 136-145 POTASSIUM (test code=K) 4.4 mmol/L 3.5-5.1 CHLORIDE (test code=CL) 102.0 mmol/L 98-107 CARBON DIOXIDE (test code=CO2) mmol/L 21-32 ANION GAP (test code=GAP) 10-20 GLUCOSE (test code=GLU) mg/dL 74-106 BLOOD UREA NITROGEN (test code=BUN) mg/dL 7-18 GLOMERULAR FILTRATION RATE (test code=GFR) mL/min >=60 CREATININE (test code=CREAT) mg/dL 0.55-1.02 BUN/CREATININE RATIO (test code=BUN/CREA) 10-20 CALCIUM (test code=CA) mg/dL 8.5-10.1 BASIC METABOLIC [id number] 07:11:00* Test Item Value Reference Range Comments SODIUM (test code=NA) 132 mmol/L 136-145 POTASSIUM (test code=K) 4.1 mmol/L 3.5-5.1 CHLORIDE (test code=CL) 99.0 mmol/L 98-107 CARBON DIOXIDE (test code=CO2) 21.0 mmol/L 21-32 ANION GAP (test code=GAP) 16.1 10-20 GLUCOSE (test code=GLU) 542 mg/dL 74-106 Results called to [id number] by NIESHA 04/03/18 0711Critical results verified and read back by Nurse? Y BLOOD UREA NITROGEN (test code=BUN) 42 mg/dL 7-18 GLOMERULAR FILTRATION RATE (test code=GFR) 30 mL/min >=60 Estimated GFR by using Modified MDRD formula.Chronic kidney disease is defined as either kidney damageor GFR <60 mL/min/1.73 m2 for >3 months. CREATININE (test code=CREAT) 1.70 mg/dL 0.55-1.02 Note change in reference range due to change in reagent. BUN/CREATININE RATIO (test code=BUN/CREA) 25.0 10-20 CALCIUM (test code=CA) 7.7 mg/dL 8.5-10.1 Spoke with nurse ANDREWS wants BMP recollected for theglucose. First run 542 rep eat [id number] 07:11:00* Test Item Value Reference Range Comments MAGNESIUM (test code=MAG) 1.2 mg/dL 1.8-2.4 Spoke with nurse ANDREWS wants BMP recollected for theglucose. First run 542 rep eat [id number] 05:45:00* Test Item Value Reference Range Comments GLUBED (test code=GLUBED) 256 mg/dL 74-106 Performed by certified glazing machine operator at [facility] BASIC METABOLIC [id number] 05:20:00* Test Item Value Reference Range Comments SODIUM (test code=NA) 132 mmol/L 136-145 POTASSIUM (test code=K) 4.1 mmol/L 3.5-5.1 CHLORIDE (test code=CL) 99.0 mmol/L 98-107 CARBON DIOXIDE (test code=CO2) mmol/L 21-32 ANION GAP (test code=GAP) 10-20 GLUCOSE (test code=GLU) mg/dL 74-106 BLOOD UREA NITROGEN (test code=BUN) mg/dL 7-18 GLOMERULAR FILTRATION RATE (test code=GFR) mL/min >=60 CREATININE (test code=CREAT) mg/dL 0.55-1.02 BUN/CREATININE RATIO (test code=BUN/CREA) 10-20 CALCIUM (test code=CA) mg/dL 8.5-10.1 [id number] 05:20:00* Test Item Value Reference Range Comments MAGNESIUM (test code=MAG) mg/dL 1.8-2.4 [id number] 20:46:00* Test Item Value Reference Range Comments GLUBED (test code=GLUBED) 121 mg/dL 74-106 Performed by certified glazing machine operator at [facility] [id number] 16:18:00* Test Item Value Reference Range Comments GLUBED (test code=GLUBED) 154 mg/dL 74-106 Performed by certified glazing machine operator at [facility] [id number] 11:10:00* Test Item Value Reference Range Comments GLUBED (test code=GLUBED) 171 mg/dL 74-106 Performed by certified glazing machine operator at [facility] [id number] 06:06:00* Test Item Value Reference Range Comments GLUBED (test code=GLUBED) 166 mg/dL 74-106 Performed by certified glazing machine operator at [facility] [id number] 20:34:00* Test Item Value Reference Range Comments GLUBED (test code=GLUBED) 158 mg/dL 74-106 Performed by certified glazing machine operator at [facility] [id number] 18:21:00* Test Item Value Reference Range Comments GLUBED (test code=GLUBED) 168 mg/dL 74-106 Performed by certified glazing machine operator at [facility] [id number] 18:21:00* Test Item Value Reference Range Comments GLUBED (test code=GLUBED) 184 mg/dL 74-106 Performed by certified glazing machine operator at [facility] - SP FLUORO GUID CTRL ACC [id number] 14:04:00 Name: JOSÉ MIGUEL MCGINNIS [facility] : 1950 Age/S: 67 / F [address] Unit #: [id number] Loc: [place] [address] Phys: Nick Lou MD Acct: [id number] Dis Date: Status: ADM IN PHONE #: [phone] Exam Date: 03/25/2018 1626 FAX #: [phone] Reason: EXAMS: CPT CODE: [id number] SP FLUORO GUID CTRL ACC DEV 06184 Fluoro Time: 54 DAP (Gy m2): 2956 Air Kerma (mGy): 8.84 EXAM: Insertion of a tunneled central line with sonographic and fluoroscopic guidance; CPT: 72741, 92044, 22158; INFORMATION: Recurrent UTI; patient needs central line for TPN TECHNIQUE and FINDINGS: After obtaining informed consent, the patient was placed supine on the procedure table and the left neck region was prepped and draped in the usual sterile fashion, applying all elements of maximal sterile barrier technique. Ultrasound of the neck demonstrated a patent and compressible left internal jugular vein. Sonographic images were stored in PACS. Xylocaine was administered and using sonographic guidance the right internal jugular vein was accessed with a micropuncture system, followed by insertion of a guidewire. Under fluoroscopic guidance, sequential dilatation was performed and a 7-[place]izen [place] peel-away sheath was then inserted over the wire. A subcutaneous tunnel was created in the usual sterile fashion and a 6 Citizen [place] dual-lumen tunneled central line was inserted. The tip of the central line was positioned in the SVC as demonstrated fluoroscopically. There was no evidence of a pneumotho rax; The patient tolerated the procedure well and there were no apparent complications. IMPRESSION: Successful insertion of a tunneled central line via right IJ access, using sonographic and fluor oscopic guidance. Fluoroscopy time:54 sec CAK:8.84 mGy DAP:2956 mGy-sqcm at 1404 Reported and signed by: Elmer Harman M.D. CC: Nick Gil Technologist: GWYN BUENO RT(R) Trnwvb Date/Time: 04/01/2018 (1696) ankur GOOD Orig Print D/T: S: 04/01/2018 (2429) PAGE 1 Signed Report - [facility] GUIDANCE [facility] [id number] 14:04:00 Name: JOSÉ MIGUEL MCGINNIS [facility] : 1950 Age/S: 67 / F Kylah Haywood Unit #: [id number] Loc: [place] Rojas [address] Phys: Nick Lou MD Acct: [id number] Dis Date: Status: ADM IN PHONE #: [phone] Exam Date: 03/25/2018 1626 FAX #: [phone] Reason: EXAMS: CPT CODE: [id number] [place] GUIDANCE VASC ACCESS [id number] Fluoro Time: 0 DAP (Gy m2): 0 Air Kerma (mGy): 0 EXAM: Insertion of a tunneled central line with sonographic and fluoroscopic guidance; CPT: 99172, 00157, 80904; INFORMATION: Recurrent UTI; patient needs central line for TPN TECHNIQUE and FINDINGS: After obtaining informed consent, the patient was placed supine on the procedure table and the left neck region was prepped and draped in the usual sterile fashion, applying all elements of maximal sterile barrier technique. Ultrasound of the neck demonstrated a patent and compressible left internal jugular vein. Sonographic images were stored in PACS. Xylocaine was administered and using sonographic guidance the right internal jugular vein was accessed with a micropuncture system, followed by insertion of a guidewire. Under fluoroscopic guidance, sequential dilatation was performed and a 7-[place]izen [place] peel-away sheath was then inserted over the wire. A subcutaneous tunnel was created in the usual sterile fashion and a 6 [place] dual-lumen tunneled central line was inserted. The tip of the central line was positioned in the SVC as demonstrated fluoroscopically. There was no evidence of a pneumotho rax; The patient tolerated the procedure well and there were no apparent complications. IMPRESSION: Successful insertion of a tunneled central line via right IJ access, using sonographic and fluor oscopic guidance. Fluoroscopy time:54 sec CAK:8.84 mGy DAP:2956 mGy-sqcm at 1404 Reported and signed by: Elmer Harman M.D. CC: Nick Gil Technologist: GWYN FENG TT RT(R) Trnscb Date/Time: 04/01/2018 (4916) [email or web address] Orig Print D/T: S: 04/01/2018 (6860) PAGE 1 Signed Report GLUBED 2018-04-01 06:34:00* Test Item Value Reference Range Comments GLUBED (test code=GLUBED) 136 mg/dL 74-106 Performed by certified glazing machine operator at [facility] BASIC METABOLIC [id number] 02:58:00* Test Item Value Reference Range Comments SODIUM (test code=NA) 138 mmol/L 136-145 POTASSIUM (test code=K) 4.6 mmol/L 3.5-5.1 CHLORIDE (test code=CL) 102.0 mmol/L 98-107 CARBON DIOXIDE (test code=CO2) 27.0 mmol/L 21-32 ANION GAP (test code=GAP) 13.6 10-20 GLUCOSE (test code=GLU) 142 mg/dL 74-106 BLOOD UREA NITROGEN (test code=BUN) 41 mg/dL 7-18 GLOMERULAR FILTRATION RATE (test code=GFR) 49 mL/min >=60 Estimated GFR by using Modified MDRD formula.Chronic kidney disease is defined as either kidney damageor GFR <60 mL/min/1.73 m2 for >3 months. CREATININE (test code=CREAT) 1.10 mg/dL 0.55-1.02 Note change in reference range due to change in reagent. BUN/CREATININE RATIO (test code=BUN/CREA) 37.6 10-20 CALCIUM (test code=CA) 8.6 mg/dL 8.5-10.1 BASIC METABOLIC [id number] 02:51:00* Test Item Value Reference Range Comments SODIUM (test code=NA) 138 mmol/L 136-145 POTASSIUM (test code=K) 4.6 mmol/L 3.5-5.1 CHLORIDE (test code=CL) 102.0 mmol/L 98-107 CARBON DIOXIDE (test code=CO2) mmol/L 21-32 ANION GAP (test code=GAP) 10-20 GLUCOSE (test code=GLU) mg/dL 74-106 BLOOD UREA NITROGEN (test code=BUN) mg/dL 7-18 GLOMERULAR FILTRATION RATE (test code=GFR) mL/min >=60 CREATININE (test code=CREAT) mg/dL 0.55-1.02 BUN/CREATININE RATIO (test code=BUN/CREA) 10-20 CALCIUM (test code=CA) mg/dL 8.5-10.1 CBC W/AUTO [id number] 02:48:00* Test Item Value Reference Range Comments WHITE BLOOD CELL (test code=WBC) 9.7 K/mm3 4.5-12.5 RED BLOOD CELL (test code=RBC) 3.51 mill/mm3 3.7-5.2 HEMOGLOBIN (test code=HGB) 9.9 gram/dL 11.5-15.5 RESULT VERIFIED BY REPEAT ANALYSIS HEMATOCRIT (test code=HCT) 31.7 % 36.0-46.0 MEAN CELL VOLUME (test code=MCV) 90.3 fL 80-98 MEAN CELL HGB (test code=MCH) 28.2 picogram 27.0-33.0 MEAN CELL HGB CONCETRATION (test code=MCHC) 31.2 gram/dL 33.0-36.0 RED CELL DISTRIBUTION WIDTH (test code=RDW) 17.2 % 11.6-16.2 RED CELL DISTRIBUTION WIDTH SD (test code=RDW-SD) 56.6 fL 37.0-51.0 PLATELET COUNT (test code=PLT) 162 K/mm3 150-450 MEAN PLATELET VOLUME (test code=MPV) 9.6 fL 6.7-11.0 NEUTROPHIL % (test code=NT%) 63.2 % 39.0-69.0 IMMATURE GRANULOCYTE % (test code=IG%) 0.8 % 0.0-5.0 LYMPHOCYTE % (test code=LY%) 22.7 % 25.0-55.0 MONOCYTE % (test code=MO%) 11.0 % 0.0-10.0 EOSINOPHIL % (test code=EO%) 1.9 % 0.0-5.0 BASOPHIL % (test code=BA%) 0.4 % 0.0-1.0 NUCLEATED RBC % (test code=NRBC%) 0.0 % 0-0 NEUTROPHIL # (test code=NT#) 6.14 K/mm3 1.8-7.7 IMMATURE GRANULOCYTE # (test code=IG#) 0.08 x10 3/uL 0-0.03 LYMPHOCYTE # (test code=LY#) 2.21 K/mm3 1.0-5.0 MONOCYTE # (test code=MO#) 1.07 K/mm3 0-0.8 EOSINOPHIL # (test code=EO#) 0.18 K/mm3 0.0-0.5 BASOPHIL # (test code=BA#) 0.04 K/mm3 0.0-0.2 NUCLEATED RBC # (test code=NRBC#) 0.00 K/mm3 0.0-0.1 MANUAL DIFF REQUIRED (test code=MDIFF) NO [id number] 22:08:00* Test Item Value Reference Range Comments GLUBED (test code=GLUBED) 134 mg/dL 74-106 Performed by certified glazing machine operator at [facility] BASIC METABOLIC [id number] 16:54:00* Test Item Value Reference Range Comments SODIUM (test code=NA) 137 mmol/L 136-145 RESULT VERIFIED BY REPEAT ANALYSIS POTASSIUM (test code=K) 4.8 mmol/L 3.5-5.1 RESULT VERIFIED BY REPEAT ANALYSIS CHLORIDE (test code=CL) 102.0 mmol/L 98-107 CARBON DIOXIDE (test code=CO2) 28.0 mmol/L 21-32 ANION GAP (test code=GAP) 11.8 10-20 GLUCOSE (test code=GLU) 238 mg/dL 74-106 BLOOD UREA NITROGEN (test code=BUN) 37 mg/dL 7-18 GLOMERULAR FILTRATION RATE (test code=GFR) 55 mL/min >=60 Estimated GFR by using Modified MDRD formula.Chronic kidney disease is defined as either kidney damageor GFR <60 mL/min/1.73 m2 for >3 months. CREATININE (test code=CREAT) 1.00 mg/dL 0.55-1.02 Note change in reference range due to change in reagent. 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: NEEDS TO BE DRAW PERIPHERAL- XR ABDOMEN AP 1 V 2018-03-31 16:03:00 FAX: Nick Lou [phone] [place]: [address] St: ADM Name: JOSÉ MIGUEL DAWN [facility] : [birth year] Age/S: 67/F [address] Unit #: [id number] Loc: V.2040 [place]jas [address] Phys: Nick Lou MD Acct: [id number] Dis Date: Status: ADM IN PHONE #: [phone] Exam Date: 03/31/2018 1548 FAX #: [phone] Reason: PAIN EXAMS: CPT CODE: [id number] XR ABDOMEN AP 1 V 98700 REASON FOR EXAM: PAIN EXAM ORDER DATE: 03/31/2018 12:00 AM Attending Reggie: Nick Cantrell MD PROCEDURE: - XR ABDOMEN AP 1 V COMPARISON: FINDINGS: One view of the abdomen obtained at 3:41 PM. Scattered fecal material seen in the colon. The small bowel is minimally distended with air. No evidence of organomegaly. No evidence of ascites IMPRESSION: Minimal gaseous distention of small bowel loops sugge stive of ileus. Electronically Signed by Reggie Hunter on at 1603 Reported and signed by: Reza Hunter M.D. CC: Nick Lou Technologist: Shaye PAUL(R) Trnscrd [place] e/Time/By: 03/31/2018 (5817) : By: ChayaVTL Orig Print D/T: S: 2018 (3653) PAGE 1 Signed Report - CT ABD PELVIS W/O [id number] 15:16:00 Name: JOSÉ MIGUEL MCGINNIS [facility] : 1950 Age/S: 67 / F [address] Unit #: [id number] Loc: MARK[place] Rojas [address] Phys: Marleni Baker Acct: [id number] Di s Date: Status: ADM IN PHONE #: Exam Date: 03/31/2018 1500 FAX #: Reason: PAIN IN COLONOSTOMY SITE EXAMS: CPT CODE: [id number] CT ABD PELVIS W/O CONT 72786 HISTORY: PAIN IN COLONOST DU SITE TECHNIQUE: 5mm axial CT images were obtained through th e abdomen and pelvis without contrast. Sagittal and coronal reformatted im ages were generated. Automated exposure control for dose reduction. COMPARISON: 03/20/18 FINDINGS: Small bilater al pleural effusion with bilateral lower lobe dependent atelectasis. Cardi omegaly. Coronary artery calcification. Cholecystectomy. Hepatomeg jonas. Atrophic pancreas. Nonenhanced spleen and adrenal glands are unremark able. Mild bilateral renal cortical thinning and scarring. No urin nahum calculi or hydronephrosis. Limited evaluation of the GI tract without oral contrast. Stomach is unremarkable. Postsurgical changes of the bowel without evidence of obstruction. Left lower quadrant ostomy. Rectal pouch is unremarkable. No free air or free fluid. No lymph adenopathy. Aortoiliac atherosclerotic vascular calcification without aneu rysm. Urinary bladder is unremarkable. Seminal vesicles and prosta te gland are unremarkable. No pelvic free fluid. Midline abd ominal wall wound with tiny foci of air, enterocutaneous fistula cannot be excluded. Degenerative changes of the spine, sacroiliac joints, and hips. IMPRESSION: No significant interval change. Postsurgical changes of the bowel without evidence of bowel obst ruction. Left lower quadrant ostomy. Midline abdominal wall wound with t iny foci of air, enterocutaneous fistula cannot be excluded. PAGE 1 Signed Report ( CONTINUED) Name: JOSÉ MIGUEL MCGINNIS [facility] : 1950 Age/S: 67 / F [address] U nit #: [id number] Loc: [place] [address] Phys: Marleni Curtis Acct: [id number] Dis Date: Status: ADM IN PHONE #: [phone] Exam Date: 03/31/2018 1500 FAX #: [phone] Reason: PAIN IN COLONOSTOMY SITE EXAMS: CPT CODE: [id number] CT ABD PELVIS W/O CONT 35698 <Continued> at 1516 Reported and signed by: Chelle Castillo D.O. CC: Nick Lou Technologist:JUAN JOSE VARGAS, RT(R) CT CTDI: DLP: Trnscb Date/Time: 03/31/2018 (1516) [email or web address] Orig Print D/T: S: 03/31/2018 (9411) CTDI: DLP: PAGE 2 Signed Report [id number] 14:11:00* Test Item Value Reference Range Comments GLUBED (test code=GLUBED) 232 mg/dL 74-106 Performed by certified glazing machine operator at [facility] [id number] 14:11:00* Test Item Value Reference Range Comments GLUBED (test code=GLUBED) 246 mg/dL 74-106 Performed by certified glazing machine operator at [facility] COMPREHENSIVE METABOLIC [id number] 13:45:00* Test Item Value Reference Range Comments SODIUM (test code=NA) 128 mmol/L 136-145 POTASSIUM (test code=K) 6.3 mmol/L 3.5-5.1 Results called to [id number] by [facility] 03/31/18 1343Critical results verified and read back by Nurse? Y CHLORIDE (test code=CL) 95.0 mmol/L 98-107 CARBON DIOXIDE (test code=CO2) 25.0 mmol/L 21-32 ANION GAP (test code=GAP) 14.3 10-20 GLUCOSE (test code=GLU) 1018 mg/dL 74-106 Results called to [id number] by [facility] 03/31/18 1343Critical results verified and read back by Nurse? Y BLOOD UREA NITROGEN (test code=BUN) 35 mg/dL 7-18 GLOMERULAR FILTRATION RATE (test code=GFR) 49 mL/min >=60 Estimated GFR by using Modified MDRD formula.Chronic kidney disease is defined as either kidney damageor GFR <60 mL/min/1.73 m2 for >3 months. CREATININE (test code=CREAT) 1.10 mg/dL 0.55-1.02 Note change in reference range due to change in reagent. BUN/CREATININE RATIO (test code=BUN/CREA) 31.5 10-20 TOTAL PROTEIN (test code=PROT) 5.6 gram/dL 6.4-8.2 ALBUMIN (test code=ALB) 1.6 g/dL 3.4-5.0 GLOBULIN (test code=GLOB) 4.0 gram/dL 2.7-4.2 ALBUMIN/GLOBULIN RATIO (test code=A/G) 0.4 0.75-1.50 CALCIUM (test code=CA) 8.4 mg/dL 8.5-10.1 BILIRUBIN TOTAL (test code=BILT) 0.40 mg/dL 0.0-1.0 SGOT/AST (test code=AST) 47 IUnit/L 15-37 SGPT/ALT (test code=ALT) 28 IUnit/L 12-78 ALKALINE PHOSPHATASE TOTAL (test code=ALKP) 91 IUnit/L 45-117 Note change in reference range due to change in reagent. PT HAS TPN AND BLOOD TRANFUSION GOING ON BOTH PORT NOTIFIEDRN PALOMO @V.LAB.SP3 0814Specimen to be recollected notified stephani WAYAA03/31/18 0647GLUBED 2018-03-31 06:53:00* Test Item Value Reference Range Comments GLUBED (test code=GLUBED) 305 mg/dL 74-106 Performed by certified glazing machine operator at [facility] VANCOMYCIN [id number] 06:07:00* Test Item Value Reference Range Comments VANCOMYCIN TROUGH (test code=VANCT) 19.3 ug/mL 10-20 HGB [id number] 04:30:00* Test Item Value Reference Range Comments HEMOGLOBIN (test code=HGB) 7.2 gram/dL 11.5-15.5 HEMATOCRIT (test code=HCT) 27.7 % 36.0-46.0 [id number] 21:26:00* Test Item Value Reference Range Comments GLUBED (test code=GLUBED) 325 mg/dL 74-106 Performed by certified glazing machine operator at [facility] [id number] 16:46:00* Test Item Value Reference Range Comments GLUBED (test code=GLUBED) 270 mg/dL 74-106 Performed by certified glazing machine operator at [facility] [id number] 12:44:00* Test Item Value Reference Range Comments GLUBED (test code=GLUBED) 274 mg/dL 74-106 Performed by certified glazing machine operator at [facility] [id number] 06:56:00* Test Item Value Reference Range Comments GLUBED (test code=GLUBED) 315 mg/dL 74-106 [facility] certified glazing machine operator [facility] BASIC METABOLIC [id number] 04:55:00* Test Item Value Reference Range Comments SODIUM (test code=NA) 139 mmol/L 136-145 POTASSIUM (test code=K) 4.5 mmol/L 3.5-5.1 CHLORIDE (test code=CL) 102.0 mmol/L 98-107 CARBON DIOXIDE (test code=CO2) 31.0 mmol/L 21-32 ANION GAP (test code=GAP) 10.5 10-20 GLUCOSE (test code=GLU) 316 mg/dL 74-106 BLOOD UREA NITROGEN (test code=BUN) 35 mg/dL 7-18 GLOMERULAR FILTRATION RATE (test code=GFR) > 60 mL/min >=60 Estimated GFR by using Modified MDRD formula.Chronic kidney disease is defined as either kidney damageor GFR <60 mL/min/1.73 m2 for >3 months. CREATININE (test code=CREAT) 0.90 mg/dL 0.55-1.02 Note change in reference range due to change in reagent. BUN/CREATININE RATIO (test code=BUN/CREA) 37.8 10-20 CALCIUM (test code=CA) 8.2 mg/dL 8.5-10.1 BASIC METABOLIC [id number] 04:49:00* Test Item Value Reference Range Comments SODIUM (test code=NA) 139 mmol/L 136-145 POTASSIUM (test code=K) 4.5 mmol/L 3.5-5.1 CHLORIDE (test code=CL) 102.0 mmol/L 98-107 CARBON DIOXIDE (test code=CO2) mmol/L 21-32 ANION GAP (test code=GAP) 10-20 GLUCOSE (test code=GLU) mg/dL 74-106 BLOOD UREA NITROGEN (test code=BUN) mg/dL 7-18 GLOMERULAR FILTRATION RATE (test code=GFR) mL/min >=60 CREATININE (test code=CREAT) mg/dL 0.55-1.02 BUN/CREATININE RATIO (test code=BUN/CREA) 10-20 CALCIUM (test code=CA) mg/dL 8.5-10.1 [id number] 21:47:00* Test Item Value Reference Range Comments GLUBED (test code=GLUBED) 231 mg/dL 74-106 [facility] certified glazing machine operator [facility] [id number] 17:21:00* Test Item Value Reference Range Comments GLUBED (test code=GLUBED) 302 mg/dL 74-106 Performed by certified glazing machine operator at [facility] [id number] 12:12:00* Test Item Value Reference Range Comments GLUBED (test code=GLUBED) 223 mg/dL 74-106 Performed by certified glazing machine operator at [facility] BASIC METABOLIC [id number] 09:57:00* Test Item Value Reference Range Comments SODIUM (test code=NA) 137 mmol/L 136-145 POTASSIUM (test code=K) 3.9 mmol/L 3.5-5.1 CHLORIDE (test code=CL) 101.0 mmol/L 98-107 CARBON DIOXIDE (test code=CO2) 29.0 mmol/L 21-32 ANION GAP (test code=GAP) 10.9 10-20 GLUCOSE (test code=GLU) 277 mg/dL 74-106 BLOOD UREA NITROGEN (test code=BUN) 31 mg/dL 7-18 GLOMERULAR FILTRATION RATE (test code=GFR) > 60 mL/min >=60 Estimated GFR by using Modified MDRD formula.Chronic kidney disease is defined as either kidney damageor GFR <60 mL/min/1.73 m2 for >3 months. CREATININE (test code=CREAT) 0.90 mg/dL 0.55-1.02 Note change in reference range due to change in reagent. BUN/CREATININE RATIO (test code=BUN/CREA) 34.8 10-20 CALCIUM (test code=CA) 8.1 mg/dL 8.5-10.1 BASIC METABOLIC [id number] 09:47:00* Test Item Value Reference Range Comments SODIUM (test code=NA) 137 mmol/L 136-145 POTASSIUM (test code=K) 3.9 mmol/L 3.5-5.1 CHLORIDE (test code=CL) 101.0 mmol/L 98-107 CARBON DIOXIDE (test code=CO2) mmol/L 21-32 ANION GAP (test code=GAP) 10-20 GLUCOSE (test code=GLU) mg/dL 74-106 BLOOD UREA NITROGEN (test code=BUN) mg/dL 7-18 GLOMERULAR FILTRATION RATE (test code=GFR) mL/min >=60 CREATININE (test code=CREAT) mg/dL 0.55-1.02 BUN/CREATININE RATIO (test code=BUN/CREA) 10-20 CALCIUM (test code=CA) mg/dL 8.5-10.1 [id number] 07:08:00* Test Item Value Reference Range Comments GLUBED (test code=GLUBED) 277 mg/dL 74-106 [facility] certified glazing machine operator [facility] [id number] 21:37:00* Test Item Value Reference Range Comments GLUBED (test code=GLUBED) 193 mg/dL 74-106 [facility] by certified glazing machine operator [facility] [id number] 17:13:00* Test Item Value Reference Range Comments GLUBED (test code=GLUBED) 232 mg/dL 74-106 Performed by certified glazing machine operator at [facility] [id number] 12:31:00* Test Item Value Reference Range Comments GLUBED (test code=GLUBED) 360 mg/dL 74-106 Performed by certified glazing machine operator at [facility] VANCOMYCIN [id number] 07:40:00* Test Item Value Reference Range Comments VANCOMYCIN TROUGH (test code=VANCT) 10.9 ug/mL 10-20 BASIC METABOLIC [id number] 07:23:00* Test Item Value Reference Range Comments SODIUM (test code=NA) 137 mmol/L 136-145 POTASSIUM (test code=K) 3.7 mmol/L 3.5-5.1 CHLORIDE (test code=CL) 99.0 mmol/L 98-107 CARBON DIOXIDE (test code=CO2) 30.0 mmol/L 21-32 ANION GAP (test code=GAP) 11.7 10-20 GLUCOSE (test code=GLU) 279 mg/dL 74-106 BLOOD UREA NITROGEN (test code=BUN) 32 mg/dL 7-18 GLOMERULAR FILTRATION RATE (test code=GFR) > 60 mL/min >=60 Estimated GFR by using Modified MDRD formula.Chronic kidney disease is defined as either kidney damageor GFR <60 mL/min/1.73 m2 for >3 months. CREATININE (test code=CREAT) 0.90 mg/dL 0.55-1.02 Note change in reference range due to change in reagent. BUN/CREATININE RATIO (test code=BUN/CREA) 37.1 10-20 CALCIUM (test code=CA) 7.7 mg/dL 8.5-10.1 [id number] 07:23:00* Test Item Value Reference Range Comments PHOSPHORUS (test code=PHOS) 1.6 mg/dL 2.5-4.9 [id number] 07:23:00* Test Item Value Reference Range Comments MAGNESIUM (test code=MAG) 1.8 mg/dL 1.8-2.4 BASIC METABOLIC [id number] 07:19:00* Test Item Value Reference Range Comments SODIUM (test code=NA) 137 mmol/L 136-145 POTASSIUM (test code=K) 3.7 mmol/L 3.5-5.1 CHLORIDE (test code=CL) 99.0 mmol/L 98-107 CARBON DIOXIDE (test code=CO2) mmol/L 21-32 ANION GAP (test code=GAP) 10-20 GLUCOSE (test code=GLU) mg/dL 74-106 BLOOD UREA NITROGEN (test code=BUN) mg/dL 7-18 GLOMERULAR FILTRATION RATE (test code=GFR) mL/min >=60 CREATININE (test code=CREAT) mg/dL 0.55-1.02 BUN/CREATININE RATIO (test code=BUN/CREA) 10-20 CALCIUM (test code=CA) mg/dL 8.5-10.1 [id number] 07:19:00* Test Item Value Reference Range Comments PHOSPHORUS (test code=PHOS) mg/dL 2.5-4.9 [id number] 07:19:00* Test Item Value Reference Range Comments MAGNESIUM (test code=MAG) mg/dL 1.8-2.4 CBC W/AUTO [id number] 07:08:00* Test Item Value Reference Range Comments WHITE BLOOD CELL (test code=WBC) 7.8 K/mm3 4.5-12.5 RED BLOOD CELL (test code=RBC) 2.45 mill/mm3 3.7-5.2 HEMOGLOBIN (test code=HGB) 7.2 gram/dL 11.5-15.5 HEMATOCRIT (test code=HCT) 23.1 % 36.0-46.0 MEAN CELL VOLUME (test code=MCV) 94.3 fL 80-98 MEAN CELL HGB (test code=MCH) 29.4 picogram 27.0-33.0 MEAN CELL HGB CONCETRATION (test code=MCHC) 31.2 gram/dL 33.0-36.0 RED CELL DISTRIBUTION WIDTH (test code=RDW) 16.3 % 11.6-16.2 RED CELL DISTRIBUTION WIDTH SD (test code=RDW-SD) 55.9 fL 37.0-51.0 PLATELET COUNT (test code=PLT) 234 K/mm3 150-450 MEAN PLATELET VOLUME (test code=MPV) 8.8 fL 6.7-11.0 NEUTROPHIL % (test code=NT%) 71.0 % 39.0-69.0 IMMATURE GRANULOCYTE % (test code=IG%) 0.4 % 0.0-5.0 LYMPHOCYTE % (test code=LY%) 20.2 % 25.0-55.0 MONOCYTE % (test code=MO%) 4.4 % 0.0-10.0 EOSINOPHIL % (test code=EO%) 3.6 % 0.0-5.0 BASOPHIL % (test code=BA%) 0.4 % 0.0-1.0 NUCLEATED RBC % (test code=NRBC%) 0.0 % 0-0 NEUTROPHIL # (test code=NT#) 5.53 K/mm3 1.8-7.7 IMMATURE GRANULOCYTE # (test code=IG#) 0.03 x10 3/uL 0-0.03 LYMPHOCYTE # (test code=LY#) 1.57 K/mm3 1.0-5.0 MONOCYTE # (test code=MO#) 0.34 K/mm3 0-0.8 EOSINOPHIL # (test code=EO#) 0.28 K/mm3 0.0-0.5 BASOPHIL # (test code=BA#) 0.03 K/mm3 0.0-0.2 NUCLEATED RBC # (test code=NRBC#) 0.00 K/mm3 0.0-0.1 MANUAL DIFF REQUIRED (test code=MDIFF) NO [id number] 06:46:00* Test Item Value Reference Range Comments GLUBED (test code=GLUBED) 283 mg/dL 74-106 Performed by certified glazing machine operator at [facility] [id number] 23:03:00* Test Item Value Reference Range Comments GLUBED (test code=GLUBED) 234 mg/dL 74-106 Performed by certified glazing machine operator at [facility] [id number] 16:25:00* Test Item Value Reference Range Comments GLUBED (test code=GLUBED) 180 mg/dL 74-106 Performed by certified glazing machine operator at [facility] [id number] 13:22:00* Test Item Value Reference Range Comments GLUBED (test code=GLUBED) 377 mg/dL 74-106 Performed by certified glazing machine operator at [facility] [id number] 13:22:00* Test Item Value Reference Range Comments GLUBED (test code=GLUBED) 372 mg/dL 74-106 Performed by certified glazing machine operator at [facility] [id number] 09:08:00* Test Item Value Reference Range Comments PHOSPHORUS (test code=PHOS) 1.2 mg/dL 2.5-4.9 BASIC METABOLIC [id number] 06:31:00* Test Item Value Reference Range Comments SODIUM (test code=NA) 138 mmol/L 136-145 POTASSIUM (test code=K) 3.9 mmol/L 3.5-5.1 CHLORIDE (test code=CL) 97.0 mmol/L 98-107 CARBON DIOXIDE (test code=CO2) 32.0 mmol/L 21-32 ANION GAP (test code=GAP) 12.9 10-20 GLUCOSE (test code=GLU) 142 mg/dL 74-106 BLOOD UREA NITROGEN (test code=BUN) 28 mg/dL 7-18 RESULT VERIFIED BY REPEAT ANALYSIS GLOMERULAR FILTRATION RATE (test code=GFR) > 60 mL/min >=60 Estimated GFR by using Modified MDRD formula.Chronic kidney disease is defined as either kidney damageor GFR <60 mL/min/1.73 m2 for >3 months. CREATININE (test code=CREAT) 0.90 mg/dL 0.55-1.02 Note change in reference range due to change in reagent. BUN/CREATININE RATIO (test code=BUN/CREA) 31.1 10-20 CALCIUM (test code=CA) 6.9 mg/dL 8.5-10.1 [id number] 06:31:00* Test Item Value Reference Range Comments MAGNESIUM (test code=MAG) 0.9 mg/dL 1.8-2.4 Results called to [id number] by RAMOS.AG1 03/27/18 0630Critical results verified and read back by Nurse?Y CBC W/AUTO [id number] 05:35:00* Test Item Value Reference Range Comments WHITE BLOOD CELL (test code=WBC) 7.5 K/mm3 4.5-12.5 RED BLOOD CELL (test code=RBC) 2.61 mill/mm3 3.7-5.2 HEMOGLOBIN (test code=HGB) 7.6 gram/dL 11.5-15.5 HEMATOCRIT (test code=HCT) 24.2 % 36.0-46.0 MEAN CELL VOLUME (test code=MCV) 92.7 fL 80-98 MEAN CELL HGB (test code=MCH) 29.1 picogram 27.0-33.0 MEAN CELL HGB CONCETRATION (test code=MCHC) 31.4 gram/dL 33.0-36.0 RED CELL DISTRIBUTION WIDTH (test code=RDW) 16.2 % 11.6-16.2 RED CELL DISTRIBUTION WIDTH SD (test code=RDW-SD) 54.5 fL 37.0-51.0 PLATELET COUNT (test code=PLT) 252 K/mm3 150-450 MEAN PLATELET VOLUME (test code=MPV) 9.2 fL 6.7-11.0 NEUTROPHIL % (test code=NT%) 69.0 % 39.0-69.0 IMMATURE GRANULOCYTE % (test code=IG%) 0.5 % 0.0-5.0 LYMPHOCYTE % (test code=LY%) 23.1 % 25.0-55.0 MONOCYTE % (test code=MO%) 3.9 % 0.0-10.0 EOSINOPHIL % (test code=EO%) 3.2 % 0.0-5.0 BASOPHIL % (test code=BA%) 0.3 % 0.0-1.0 NUCLEATED RBC % (test code=NRBC%) 0.0 % 0-0 NEUTROPHIL # (test code=NT#) 5.15 K/mm3 1.8-7.7 IMMATURE GRANULOCYTE # (test code=IG#) 0.04 x10 3/uL 0-0.03 LYMPHOCYTE # (test code=LY#) 1.72 K/mm3 1.0-5.0 MONOCYTE # (test code=MO#) 0.29 K/mm3 0-0.8 EOSINOPHIL # (test code=EO#) 0.24 K/mm3 0.0-0.5 BASOPHIL # (test code=BA#) 0.02 K/mm3 0.0-0.2 NUCLEATED RBC # (test code=NRBC#) 0.00 K/mm3 0.0-0.1 MANUAL DIFF REQUIRED (test code=MDIFF) NO BASIC METABOLIC [id number] 05:26:00* Test Item Value Reference Range Comments SODIUM (test code=NA) 138 mmol/L 136-145 POTASSIUM (test code=K) 3.9 mmol/L 3.5-5.1 CHLORIDE (test code=CL) 97.0 mmol/L 98-107 CARBON DIOXIDE (test code=CO2) mmol/L 21-32 ANION GAP (test code=GAP) 10-20 GLUCOSE (test code=GLU) mg/dL 74-106 BLOOD UREA NITROGEN (test code=BUN) mg/dL 7-18 GLOMERULAR FILTRATION RATE (test code=GFR) mL/min >=60 CREATININE (test code=CREAT) mg/dL 0.55-1.02 BUN/CREATININE RATIO (test code=BUN/CREA) 10-20 CALCIUM (test code=CA) mg/dL 8.5-10.1 [id number] 05:26:00* Test Item Value Reference Range Comments MAGNESIUM (test code=MAG) mg/dL 1.8-2.4 [id number] 04:13:00* Test Item Value Reference Range Comments GLUBED (test code=GLUBED) 139 mg/dL 74-106 Performed by certified glazing machine operator at [facility] [id number] 21:38:00* Test Item Value Reference Range Comments GLUBED (test code=GLUBED) 252 mg/dL 74-106 Performed by certified glazing machine operator at [facility] [id number] 17:18:00* Test Item Value Reference Range Comments GLUBED (test code=GLUBED) 130 mg/dL 74-106 Performed by certified glazing machine operator at [facility] [id number] 12:35:00* Test Item Value Reference Range Comments GLUBED (test code=GLUBED) 256 mg/dL 74-106 Performed by certified glazing machine operator at [facility] [id number] 10:20:00* Test Item Value Reference Range Comments PREALBUMIN (test code=PREALB) 10.0 mg/dL 10-36 Performed At: [facility] [address] [id number] Meir Kidd MD Ph:[phone] BASIC METABOLIC [id number] 06:47:00* Test Item Value Reference Range Comments SODIUM (test code=NA) 134 mmol/L 136-145 POTASSIUM (test code=K) 4.5 mmol/L 3.5-5.1 CHLORIDE (test code=CL) 95.0 mmol/L 98-107 CARBON DIOXIDE (test code=CO2) 30.0 mmol/L 21-32 ANION GAP (test code=GAP) 13.5 10-20 GLUCOSE (test code=GLU) 145 mg/dL 74-106 BLOOD UREA NITROGEN (test code=BUN) 20 mg/dL 7-18 GLOMERULAR FILTRATION RATE (test code=GFR) > 60 mL/min >=60 Estimated GFR by using Modified MDRD formula.Chronic kidney disease is defined as either kidney damageor GFR <60 mL/min/1.73 m2 for >3 months. CREATININE (test code=CREAT) 0.90 mg/dL 0.55-1.02 Note change in reference range due to change in reagent. BUN/CREATININE RATIO (test code=BUN/CREA) 21.5 10-20 CALCIUM (test code=CA) 6.4 mg/dL 8.5-10.1 Results called to [id number] by V.LAB.JP1 03/26/18 0646Critical results verified and read back by Nurse?Y [id number] 06:29:00* Test Item Value Reference Range Comments GLUBED (test code=GLUBED) 138 mg/dL 74-106 Performed by certified glazing machine operator at [facility] CBC W/AUTO [id number] 06:10:00* Test Item Value Reference Range Comments WHITE BLOOD CELL (test code=WBC) 7.8 K/mm3 4.5-12.5 RED BLOOD CELL (test code=RBC) 2.51 mill/mm3 3.7-5.2 HEMOGLOBIN (test code=HGB) 7.4 gram/dL 11.5-15.5 HEMATOCRIT (test code=HCT) 23.4 % 36.0-46.0 MEAN CELL VOLUME (test code=MCV) 93.2 fL 80-98 MEAN CELL HGB (test code=MCH) 29.5 picogram 27.0-33.0 MEAN CELL HGB CONCETRATION (test code=MCHC) 31.6 gram/dL 33.0-36.0 RED CELL DISTRIBUTION WIDTH (test code=RDW) 16.3 % 11.6-16.2 RED CELL DISTRIBUTION WIDTH SD (test code=RDW-SD) 55.1 fL 37.0-51.0 PLATELET COUNT (test code=PLT) 198 K/mm3 150-450 RESULT VERIFIED BY REPEAT ANALYSIS MEAN PLATELET VOLUME (test code=MPV) 9.2 fL 6.7-11.0 NEUTROPHIL % (test code=NT%) 70.5 % 39.0-69.0 IMMATURE GRANULOCYTE % (test code=IG%) 0.4 % 0.0-5.0 LYMPHOCYTE % (test code=LY%) 21.5 % 25.0-55.0 MONOCYTE % (test code=MO%) 4.2 % 0.0-10.0 EOSINOPHIL % (test code=EO%) 3.1 % 0.0-5.0 BASOPHIL % (test code=BA%) 0.3 % 0.0-1.0 NUCLEATED RBC % (test code=NRBC%) 0.0 % 0-0 NEUTROPHIL # (test code=NT#) 5.51 K/mm3 1.8-7.7 IMMATURE GRANULOCYTE # (test code=IG#) 0.03 x10 3/uL 0-0.03 LYMPHOCYTE # (test code=LY#) 1.68 K/mm3 1.0-5.0 MONOCYTE # (test code=MO#) 0.33 K/mm3 0-0.8 EOSINOPHIL # (test code=EO#) 0.24 K/mm3 0.0-0.5 BASOPHIL # (test code=BA#) 0.02 K/mm3 0.0-0.2 NUCLEATED RBC # (test code=NRBC#) 0.00 K/mm3 0.0-0.1 MANUAL DIFF REQUIRED (test code=MDIFF) NO BASIC METABOLIC [id number] 05:36:00* Test Item Value Reference Range Comments SODIUM (test code=NA) 134 mmol/L 136-145 POTASSIUM (test code=K) 4.5 mmol/L 3.5-5.1 CHLORIDE (test code=CL) 95.0 mmol/L 98-107 CARBON DIOXIDE (test code=CO2) mmol/L 21-32 ANION GAP (test code=GAP) 10-20 GLUCOSE (test code=GLU) mg/dL 74-106 BLOOD UREA NITROGEN (test code=BUN) mg/dL 7-18 GLOMERULAR FILTRATION RATE (test code=GFR) mL/min >=60 CREATININE (test code=CREAT) mg/dL 0.55-1.02 BUN/CREATININE RATIO (test code=BUN/CREA) 10-20 CALCIUM (test code=CA) mg/dL 8.5-10.1 [id number] 21:49:00* Test Item Value Reference Range Comments GLUBED (test code=GLUBED) 214 mg/dL 74-106 Performed by certified glazing machine operator at [facility] [id number] 17:38:00* Test Item Value Reference Range Comments GLUBED (test code=GLUBED) 109 mg/dL 74-106 Performed by certified glazing machine operator at [facility] - XR CHEST 1 [id number] 16:54:00 FAX: Nick Lou [phone] [place]: B St: ADM Name: JOSÉ MIGUEL DAWN [facility] : [birth year] 49 Age/S: 67/F [address] Unit #: [id number] Loc: V.2040 [place] Rojas [address] Phys: Elmer Harman MD Acct: [id number] Dis Date: Status: ADM IN PHONE #: [phone] Exam Date: 03/25/2018 1651 FAX #: [phone] Reason: abd. wound; st.p. central line; EXAMS: CPT CODE: [id number] XR CHEST 1 V 81301 REASON FOR EXAM: abd. wound; st.p. central line; EXAM ORDER DATE: 03/25/2018 4:35 PM Ordering Reggie: Elmer Harman MD PROCEDURE: - XR CHEST 1 V COMPARISON: FINDINGS: Portable AP frontal view of the chest obtained at 4:48 PM shows clear lungs. There is no evidence of consolidation. There is no evidence of effusion. The heart size is within normal limits. Pulmonary vasculatures are unremarkable. IMPRESSION: Newly placed left IJ tunnel central line tip is in the SVC. at 8857 Reported and signed by: Reza Hunter M.D. CC: Nick Lou Technologist: BARRERA RobertsonR Trnscrd Date/Time/By: 03/25/2018 ( 151) : By: ColetteL Orig Print D/T: S: 03/25/2018 (2090) PAGE 1 Signed Report [id number] 13:18:00* Test Item Value Reference Range Comments GLUBED (test code=GLUBED) 144 mg/dL 74-106 Performed by certified glazing machine operator at [facility] [id number] 11:21:00* Test Item Value Reference Range Comments PREALBUMIN (test code=PREALB) 10.0 mg/dL 10-36 Performed At: [facility] [address] [id number] Kyle L MD Ph:[phone] [id number] 11:21:00* Test Item Value Reference Range Comments PREALBUMIN (test code=PREALB) 8.0 mg/dL 10-36 Performed At: [facility] [address] [id number] Kidd MD Ph:[phone] JENN NATION PER PT DO NOW DRAW ON HAND V.LAB.KP202/10/30 0614GLUBED 2018-03-25 06:07:00* Test Item Value Reference Range Comments GLUBED (test code=GLUBED) 88 mg/dL 74-106 Performed by certified glazing machine operator at [facility] COMPREHENSIVE METABOLIC [id number] 05:04:00* Test Item Value Reference Range Comments SODIUM (test code=NA) 137 mmol/L 136-145 POTASSIUM (test code=K) 3.6 mmol/L 3.5-5.1 CHLORIDE (test code=CL) 95.0 mmol/L 98-107 CARBON DIOXIDE (test code=CO2) 32.0 mmol/L 21-32 ANION GAP (test code=GAP) 13.6 10-20 GLUCOSE (test code=GLU) 102 mg/dL 74-106 BLOOD UREA NITROGEN (test code=BUN) 21 mg/dL 7-18 GLOMERULAR FILTRATION RATE (test code=GFR) 55 mL/min >=60 Estimated GFR by using Modified MDRD formula.Chronic kidney disease is defined as either kidney damageor GFR <60 mL/min/1.73 m2 for >3 months. CREATININE (test code=CREAT) 1.00 mg/dL 0.55-1.02 Note change in reference range due to change in reagent. BUN/CREATININE RATIO (test code=BUN/CREA) 20.8 10-20 TOTAL PROTEIN (test code=PROT) 4.9 gram/dL 6.4-8.2 ALBUMIN (test code=ALB) 1.3 g/dL 3.4-5.0 GLOBULIN (test code=GLOB) 3.6 gram/dL 2.7-4.2 ALBUMIN/GLOBULIN RATIO (test code=A/G) 0.4 0.75-1.50 CALCIUM (test code=CA) 6.5 mg/dL 8.5-10.1 BILIRUBIN TOTAL (test code=BILT) 0.10 mg/dL 0.0-1.0 SGOT/AST (test code=AST) 13 IUnit/L 15-37 SGPT/ALT (test code=ALT) 6 IUnit/L 12-78 ALKALINE PHOSPHATASE TOTAL (test code=ALKP) 75 IUnit/L 45-117 Note change in reference range due to change in reagent. COMPREHENSIVE METABOLIC [id number] 04:59:00* Test Item Value Reference Range Comments SODIUM (test code=NA) 137 mmol/L 136-145 POTASSIUM (test code=K) 3.6 mmol/L 3.5-5.1 CHLORIDE (test code=CL) 95.0 mmol/L 98-107 CARBON DIOXIDE (test code=CO2) mmol/L 21-32 ANION GAP (test code=GAP) 10-20 GLUCOSE (test code=GLU) mg/dL 74-106 BLOOD UREA NITROGEN (test code=BUN) mg/dL 7-18 GLOMERULAR FILTRATION RATE (test code=GFR) mL/min >=60 CREATININE (test code=CREAT) mg/dL 0.55-1.02 BUN/CREATININE RATIO (test code=BUN/CREA) 10-20 TOTAL PROTEIN (test code=PROT) gram/dL 6.4-8.2 ALBUMIN (test code=ALB) g/dL 3.4-5.0 GLOBULIN (test code=GLOB) gram/dL 2.7-4.2 ALBUMIN/GLOBULIN RATIO (test code=A/G) 0.75-1.50 CALCIUM (test code=CA) mg/dL 8.5-10.1 BILIRUBIN TOTAL (test code=BILT) mg/dL 0.0-1.0 SGOT/AST (test code=AST) IUnit/L 15-37 SGPT/ALT (test code=ALT) IUnit/L 12-78 ALKALINE PHOSPHATASE TOTAL (test code=ALKP) IUnit/L 45-117 CBC W/AUTO [id number] 04:43:00* Test Item Value Reference Range Comments WHITE BLOOD CELL (test code=WBC) 8.7 K/mm3 4.5-12.5 RED BLOOD CELL (test code=RBC) 2.53 mill/mm3 3.7-5.2 HEMOGLOBIN (test code=HGB) 7.4 gram/dL 11.5-15.5 HEMATOCRIT (test code=HCT) 23.1 % 36.0-46.0 MEAN CELL VOLUME (test code=MCV) 91.3 fL 80-98 MEAN CELL HGB (test code=MCH) 29.2 picogram 27.0-33.0 MEAN CELL HGB CONCETRATION (test code=MCHC) 32.0 gram/dL 33.0-36.0 RED CELL DISTRIBUTION WIDTH (test code=RDW) 16.4 % 11.6-16.2 RED CELL DISTRIBUTION WIDTH SD (test code=RDW-SD) 53.2 fL 37.0-51.0 PLATELET COUNT (test code=PLT) 307 K/mm3 150-450 MEAN PLATELET VOLUME (test code=MPV) 8.8 fL 6.7-11.0 NEUTROPHIL % (test code=NT%) 67.7 % 39.0-69.0 IMMATURE GRANULOCYTE % (test code=IG%) 0.7 % 0.0-5.0 LYMPHOCYTE % (test code=LY%) 23.4 % 25.0-55.0 MONOCYTE % (test code=MO%) 5.4 % 0.0-10.0 EOSINOPHIL % (test code=EO%) 2.5 % 0.0-5.0 BASOPHIL % (test code=BA%) 0.3 % 0.0-1.0 NUCLEATED RBC % (test code=NRBC%) 0.0 % 0-0 NEUTROPHIL # (test code=NT#) 5.91 K/mm3 1.8-7.7 IMMATURE GRANULOCYTE # (test code=IG#) 0.06 x10 3/uL 0-0.03 LYMPHOCYTE # (test code=LY#) 2.04 K/mm3 1.0-5.0 MONOCYTE # (test code=MO#) 0.47 K/mm3 0-0.8 EOSINOPHIL # (test code=EO#) 0.22 K/mm3 0.0-0.5 BASOPHIL # (test code=BA#) 0.03 K/mm3 0.0-0.2 NUCLEATED RBC # (test code=NRBC#) 0.00 K/mm3 0.0-0.1 [id number] 22:12:00* Test Item Value Reference Range Comments GLUBED (test code=GLUBED) 147 mg/dL 74-106 Performed by certified glazing machine operator at [facility] [id number] 15:51:00* Test Item Value Reference Range Comments GLUBED (test code=GLUBED) 174 mg/dL 74-106 Performed by certified glazing machine operator at [facility] [id number] 11:35:00* Test Item Value Reference Range Comments GLUBED (test code=GLUBED) 157 mg/dL 74-106 Performed by certified glazing machine operator at [facility] [id number] 05:50:00* Test Item Value Reference Range Comments GLUBED (test code=GLUBED) 105 mg/dL 74-106 Performed by certified glazing machine operator at [facility] [id number] 21:19:00* Test Item Value Reference Range Comments GLUBED (test code=GLUBED) 175 mg/dL 74-106 Performed by certified glazing machine operator at [facility] [id number] 15:59:00* Test Item Value Reference Range Comments GLUBED (test code=GLUBED) 133 mg/dL 74-106 Performed by certified glazing machine operator at [facility] [id number] 15:58:00* Test Item Value Reference Range Comments GLUBED (test code=GLUBED) 203 mg/dL 74-106 Performed by certified glazing machine operator at [facility] [id number] 06:21:00* Test Item Value Reference Range Comments GLUBED (test code=GLUBED) 85 mg/dL 74-106 Performed by certified glazing machine operator at [facility] BASIC METABOLIC [id number] 05:08:00* Test Item Value Reference Range Comments SODIUM (test code=NA) 140 mmol/L 136-145 POTASSIUM (test code=K) 3.5 mmol/L 3.5-5.1 CHLORIDE (test code=CL) 108.0 mmol/L 98-107 CARBON DIOXIDE (test code=CO2) 17.0 mmol/L 21-32 ANION GAP (test code=GAP) 18.5 10-20 GLUCOSE (test code=GLU) 89 mg/dL 74-106 BLOOD UREA NITROGEN (test code=BUN) 34 mg/dL 7-18 GLOMERULAR FILTRATION RATE (test code=GFR) 45 mL/min >=60 Estimated GFR by using Modified MDRD formula.Chronic kidney disease is defined as either kidney damageor GFR <60 mL/min/1.73 m2 for >3 months. CREATININE (test code=CREAT) 1.20 mg/dL 0.55-1.02 Note change in reference range due to change in reagent. BUN/CREATININE RATIO (test code=BUN/CREA) 27.4 10-20 CALCIUM (test code=CA) 6.6 mg/dL 8.5-10.1 [id number] 21:21:00* Test Item Value Reference Range Comments GLUBED (test code=GLUBED) 167 mg/dL 74-106 Performed by certified glazing machine operator at [facility] [id number] 17:05:00* Test Item Value Reference Range Comments GLUBED (test code=GLUBED) 121 mg/dL 74-106 Performed by certified glazing machine operator at [facility] [id number] 17:05:00* Test Item Value Reference Range Comments GLUBED (test code=GLUBED) 138 mg/dL 74-106 Performed by certified glazing machine operator at [facility] [id number] 05:55:00* Test Item Value Reference Range Comments GLUBED (test code=GLUBED) 66 mg/dL 74-106 Performed by certified glazing machine operator at [facility] [id number] 20:34:00* Test Item Value Reference Range Comments GLUBED (test code=GLUBED) 103 mg/dL 74-106 Performed by certified glazing machine operator at [facility] [id number] 17:27:00* Test Item Value Reference Range Comments GLUBED (test code=GLUBED) 117 mg/dL 74-106 Performed by certified glazing machine operator at [facility] [id number] 13:22:00* Test Item Value Reference Range Comments GLUBED (test code=GLUBED) 55 mg/dL 74-106 [facility] certified glazing machine [facility]~ CBC W/AUTO [id number] 12:45:00* Test Item Value Reference Range Comments WHITE BLOOD CELL (test code=WBC) 6.9 K/mm3 4.5-12.5 RED BLOOD CELL (test code=RBC) 2.71 mill/mm3 3.7-5.2 HEMOGLOBIN (test code=HGB) 7.9 gram/dL 11.5-15.5 RESULT VERIFIED BY REPEAT ANALYSIS HEMATOCRIT (test code=HCT) 26.0 % 36.0-46.0 MEAN CELL VOLUME (test code=MCV) 95.9 fL 80-98 MEAN CELL HGB (test code=MCH) 29.2 picogram 27.0-33.0 MEAN CELL HGB CONCETRATION (test code=MCHC) 30.4 gram/dL 33.0-36.0 RED CELL DISTRIBUTION WIDTH (test code=RDW) 15.9 % 11.6-16.2 RED CELL DISTRIBUTION WIDTH SD (test code=RDW-SD) 55.1 fL 37.0-51.0 PLATELET COUNT (test code=PLT) 323 K/mm3 150-450 RESULT VERIFIED BY REPEAT ANALYSIS MEAN PLATELET VOLUME (test code=MPV) 9.1 fL 6.7-11.0 NEUTROPHIL % (test code=NT%) 70.2 % 39.0-69.0 IMMATURE GRANULOCYTE % (test code=IG%) 1.3 % 0.0-5.0 LYMPHOCYTE % (test code=LY%) 19.2 % 25.0-55.0 MONOCYTE % (test code=MO%) 8.0 % 0.0-10.0 EOSINOPHIL % (test code=EO%) 0.9 % 0.0-5.0 BASOPHIL % (test code=BA%) 0.4 % 0.0-1.0 NUCLEATED RBC % (test code=NRBC%) 0.0 % 0-0 NEUTROPHIL # (test code=NT#) 4.82 K/mm3 1.8-7.7 IMMATURE GRANULOCYTE # (test code=IG#) 0.09 x10 3/uL 0-0.03 LYMPHOCYTE # (test code=LY#) 1.32 K/mm3 1.0-5.0 MONOCYTE # (test code=MO#) 0.55 K/mm3 0-0.8 EOSINOPHIL # (test code=EO#) 0.06 K/mm3 0.0-0.5 BASOPHIL # (test code=BA#) 0.03 K/mm3 0.0-0.2 NUCLEATED RBC # (test code=NRBC#) 0.00 K/mm3 0.0-0.1 BASIC METABOLIC [id number] 11:01:00* Test Item Value Reference Range Comments SODIUM (test code=NA) 142 mmol/L 136-145 POTASSIUM (test code=K) 3.3 mmol/L 3.5-5.1 CHLORIDE (test code=CL) 108.0 mmol/L 98-107 CARBON DIOXIDE (test code=CO2) 17.0 mmol/L 21-32 ANION GAP (test code=GAP) 20.3 10-20 GLUCOSE (test code=GLU) 68 mg/dL 74-106 BLOOD UREA NITROGEN (test code=BUN) 58 mg/dL 7-18 GLOMERULAR FILTRATION RATE (test code=GFR) 22 mL/min >=60 Estimated GFR by using Modified MDRD formula.Chronic kidney disease is defined as either kidney damageor GFR <60 mL/min/1.73 m2 for >3 months. CREATININE (test code=CREAT) 2.20 mg/dL 0.55-1.02 Note change in reference range due to change in reagent. BUN/CREATININE RATIO (test code=BUN/CREA) 26.1 10-20 CALCIUM (test code=CA) 6.5 mg/dL 8.5-10.1 BASIC METABOLIC [id number] 10:42:00* Test Item Value Reference Range Comments SODIUM (test code=NA) 142 mmol/L 136-145 POTASSIUM (test code=K) 3.3 mmol/L 3.5-5.1 CHLORIDE (test code=CL) 108.0 mmol/L 98-107 CARBON DIOXIDE (test code=CO2) mmol/L 21-32 ANION GAP (test code=GAP) 10-20 GLUCOSE (test code=GLU) mg/dL 74-106 BLOOD UREA NITROGEN (test code=BUN) mg/dL 7-18 GLOMERULAR FILTRATION RATE (test code=GFR) mL/min >=60 CREATININE (test code=CREAT) mg/dL 0.55-1.02 BUN/CREATININE RATIO (test code=BUN/CREA) 10-20 CALCIUM (test code=CA) mg/dL 8.5-10.1 [id number] 06:43:00* Test Item Value Reference Range Comments GLUBED (test code=GLUBED) 41 mg/dL 74-106 [facility] by certified glazing machine [facility]~ [id number] 21:24:00* Test Item Value Reference Range Comments GLUBED (test code=GLUBED) 78 mg/dL 74-106 Performed by certified glazing machine operator at [facility] [id number] 17:27:00* Test Item Value Reference Range Comments GLUBED (test code=GLUBED) 70 mg/dL 74-106 Performed by certified glazing machine operator at [facility] - CT ABD PELVIS W/O [id number] 16:29:00 Name: JOSÉ MIGUEL MCGINNIS [facility] : 1950 Age/S: 67 / F [address] [facility] Unit #: [id number] Loc: [place] [address] Phys: Yaneth Ordaz MD Acct: [id number] Dis Date: Status: ADM IN PHONE #: [phone] Exam Date: 03/20/2018751 FAX #: [phone] Reason: CODE SEPSIS EXAMS: CPT CODE: [id number] CT ABD PELVIS W/O CONT 30940 EXAM: CT of the abdomen and pelvis without contrast; INFORMATION: Septic shock, code sepsis; acute kidney injury, abdominal pain; TECHNIQUE AND FINDINGS: CT dose reduction protocol; 5 mm cuts through the abdomen and pelvis without contrast. The kidneys of normal size and shape. No hydronephrosis or stones. There is a 12 mm cyst along the posterior aspect of the right kidney. There are no acute bowel abnormalities. Liver and spleen of normal size and shape; no focal lesions. Status post cholecystectomy; no biliary dilatation. Adrenal glands are unremarkable; atrophic pancreas w ithout lesions. Extensive calcifications of the abdominal aorta, visceral and iliofemoral arteries. Postoperative changes involving the rectos igmoid colon. No pelvic mass lesions or abnormal fluid collections. Lung bases are clear. The previously seen described 7 mm nodular density i n the anterior lateral aspect of the right lower lobe is no longer seen. IMPRESSION: 1. No acute abdominal or pelvic abnormalities. 2. No evidence of renal or ureteral stones or of obstructive uropathy. at 1629 Reported and signed by: Elmer Harman M.D. CC: Yaneth Ordaz MD Technologist:Shamar Wright RT(R),(MR),(CT); CTDI: DLP: Trnscb Date/Time: 03/20/2018 (7964) [email or web address] Orig Print D/T: S: 03/20/2018 (8986) CTDI: DLP: PAGE 1 Signed Report LACTIC ACID 2018-03-20 12:16:00* Test Item Value Reference Range Comments LACTIC ACID (test code=LACT) 0.9 mmol/L 0.4-1.9 [id number] 11:03:00* Test Item Value Reference Range Comments GLUBED (test code=GLUBED) 80 mg/dL 74-106 Performed by certified glazing machine operator at [facility] LACTIC [id number] 09:46:00* Test Item Value Reference Range Comments LACTIC ACID (test code=LACT) 2.3 mmol/L 0.4-1.9 Results called to [id number] by V.LAB.RAP 03/20/18 0945Critical results verified and read back by Nurse? Y PROCALCITONIN (PCT)2018-03-20 07:17:00* Test Item Value Reference Range Comments PROCALCITONIN (PCT) (test code=PROCAL) 147.00 ng/ml Results called to [id number] by V.LAB.RAP 03/20/18 0717Critical results verified and read back by Nurse? YConcentration Interpretation (ng/mL) <0.51 Sepsis is not likely. Local bacterial infection is possible. (LOW RISK for progression to Sepsis) 0.51 - 2.00 Sepsis is possible, but other conditions are known to elevate PCT as well. (MODERATE RISK for progression to Sepsis) > 2.00 Sepsis is likely, unless other causes are known. (HIGH RISK for progression to Severe Sepsis or Septic Shock) 10.00 High likelihood of Severe Sepsis or Septic or higher Shock. *Increased PCT levels may not always be related to systemic bacterial infection.*Low PCT levels do not automatically exclude the presence of bacterial infection.*All results should be interpreted taking into account the patients history. BASIC METABOLIC [id number] 06:53:00* Test Item Value Reference Range Comments SODIUM (test code=NA) 133 mmol/L 136-145 POTASSIUM (test code=K) 3.8 mmol/L 3.5-5.1 CHLORIDE (test code=CL) 88.0 mmol/L 98-107 CARBON DIOXIDE (test code=CO2) 21.0 mmol/L 21-32 ANION GAP (test code=GAP) 27.8 10-20 GLUCOSE (test code=GLU) 155 mg/dL 74-106 BLOOD UREA NITROGEN (test code=BUN) 86 mg/dL 7-18 GLOMERULAR FILTRATION RATE (test code=GFR) 9 mL/min >=60 Estimated GFR by using Modified MDRD formula.Chronic kidney disease is defined as either kidney damageor GFR <60 mL/min/1.73 m2 for >3 months. CREATININE (test code=CREAT) 4.70 mg/dL 0.55-1.02 Note change in reference range due to change in reagent. BUN/CREATININE RATIO (test code=BUN/CREA) 18.3 10-20 CALCIUM (test code=CA) 8.0 mg/dL 8.5-10.1 HEPATIC FUNCTION [id number] 06:53:00* Test Item Value Reference Range Comments TOTAL PROTEIN (test code=PROT) 8.7 gram/dL 6.4-8.2 ALBUMIN (test code=ALB) 2.4 g/dL 3.4-5.0 GLOBULIN (test code=GLOB) 6.3 gram/dL 2.7-4.2 ALBUMIN/GLOBULIN RATIO (test code=A/G) 0.4 0.75-1.50 BILIRUBIN TOTAL (test code=BILT) 0.30 mg/dL 0.0-1.0 BILIRUBIN DIRECT (test code=BILD) 0.14 mg/dL 0.0-0.20 SGOT/AST (test code=AST) 18 IUnit/L 15-37 SGPT/ALT (test code=ALT) 8 IUnit/L 12-78 ALKALINE PHOSPHATASE TOTAL (test code=ALKP) 94 IUnit/L 45-117 Note change in reference range due to change in reagent. [id number] 06:53:00* Test Item Value Reference Range Comments LIPASE (test code=LIP) 26 U/L 73.0-393.0 [id number] 06:53:00* Test Item Value Reference Range Comments TROPONIN-I (test code=TROPI) <0.015 ng/mL 0-0.045 LACTIC [id number] 06:51:00* Test Item Value Reference Range Comments LACTIC ACID (test code=LACT) 4.5 mmol/L 0.4-1.9 Results called to [id number] by LEEROY 03/20/18 0651Critical results verified and read back by Nurse? Y BASIC METABOLIC [id number] 06:47:00* Test Item Value Reference Range Comments SODIUM (test code=NA) 133 mmol/L 136-145 POTASSIUM (test code=K) 3.8 mmol/L 3.5-5.1 CHLORIDE (test code=CL) 88.0 mmol/L 98-107 CARBON DIOXIDE (test code=CO2) mmol/L 21-32 ANION GAP (test code=GAP) 10-20 GLUCOSE (test code=GLU) mg/dL 74-106 BLOOD UREA NITROGEN (test code=BUN) mg/dL 7-18 GLOMERULAR FILTRATION RATE (test code=GFR) mL/min >=60 CREATININE (test code=CREAT) mg/dL 0.55-1.02 BUN/CREATININE RATIO (test code=BUN/CREA) 10-20 CALCIUM (test code=CA) mg/dL 8.5-10.1 HEPATIC FUNCTION [id number] 06:47:00* Test Item Value Reference Range Comments TOTAL PROTEIN (test code=PROT) gram/dL 6.4-8.2 ALBUMIN (test code=ALB) g/dL 3.4-5.0 GLOBULIN (test code=GLOB) gram/dL 2.7-4.2 ALBUMIN/GLOBULIN RATIO (test code=A/G) 0.75-1.50 BILIRUBIN TOTAL (test code=BILT) mg/dL 0.0-1.0 BILIRUBIN DIRECT (test code=BILD) mg/dL 0.0-0.20 SGOT/AST (test code=AST) IUnit/L 15-37 SGPT/ALT (test code=ALT) IUnit/L 12-78 ALKALINE PHOSPHATASE TOTAL (test code=ALKP) IUnit/L 45-117 [id number] 06:47:00* Test Item Value Reference Range Comments LIPASE (test code=LIP) U/L 73.0-393.0 [id number] 06:47:00* Test Item Value Reference Range Comments TROPONIN-I (test code=TROPI) ng/mL 0-0.045 PROTHROMBIN [id number] 06:45:00* Test Item Value Reference Range Comments PROTHROMBIN TIME PATIENT (test code=PTP) 13.6 seconds 9.0-14.0 INTERNATIONAL NORMAL RATIO (test code=INR) 1.1 0.8-1.2 The therapeutic range for oral anticoagulant therapy formost indications is an international normalized ratio (INR)of between 2.0 and 3.0. The recommended therapeutic INRrange for various clinical situations is listed below: Clinical Situation INR range Pulmonary e mbolism treatment (2.0-3.0)Venous thrombosis treatmentVenous thrombosis prophylaxis (high risk surgery)Prevention of systemic embolism from: Acute myocardial infarction Valvular heart disease Atrial fibrillation Mechanical prosthetic heart valves (2.5-3.5) IS PATIENT ON ANTICOAGULANTS? NTHROMBOPLASTIN TIME [id number] 06:45:00* Test Item Value Reference Range Comments THROMBOPLASTIN TIME PARTIAL (test code=PTT) 31.8 seconds 25.0-36.5 IS PATIENT ON ANTICOAGULANTS? NCBC W/AUTO [id number] 06:32:00* Test Item Value Reference Range Comments WHITE BLOOD CELL (test code=WBC) 16.8 K/mm3 4.5-12.5 RED BLOOD CELL (test code=RBC) 4.11 mill/mm3 3.7-5.2 HEMOGLOBIN (test code=HGB) 12.0 gram/dL 11.5-15.5 HEMATOCRIT (test code=HCT) 37.9 % 36.0-46.0 MEAN CELL VOLUME (test code=MCV) 92.2 fL 80-98 MEAN CELL HGB (test code=MCH) 29.2 picogram 27.0-33.0 MEAN CELL HGB CONCETRATION (test code=MCHC) 31.7 gram/dL 33.0-36.0 RED CELL DISTRIBUTION WIDTH (test code=RDW) 15.7 % 11.6-16.2 RED CELL DISTRIBUTION WIDTH SD (test code=RDW-SD) 52.7 fL 37.0-51.0 PLATELET COUNT (test code=PLT) 548 K/mm3 150-450 MEAN PLATELET VOLUME (test code=MPV) 8.9 fL 6.7-11.0 NEUTROPHIL % (test code=NT%) 79.4 % 39.0-69.0 IMMATURE GRANULOCYTE % (test code=IG%) 1.1 % 0.0-5.0 LYMPHOCYTE % (test code=LY%) 13.2 % 25.0-55.0 MONOCYTE % (test code=MO%) 5.6 % 0.0-10.0 EOSINOPHIL % (test code=EO%) 0.3 % 0.0-5.0 BASOPHIL % (test code=BA%) 0.4 % 0.0-1.0 NUCLEATED RBC % (test code=NRBC%) 0.0 % 0-0 NEUTROPHIL # (test code=NT#) 13.32 K/mm3 1.8-7.7 IMMATURE GRANULOCYTE # (test code=IG#) 0.18 x10 3/uL 0-0.03 LYMPHOCYTE # (test code=LY#) 2.22 K/mm3 1.0-5.0 MONOCYTE # (test code=MO#) 0.94 K/mm3 0-0.8 EOSINOPHIL # (test code=EO#) 0.05 K/mm3 0.0-0.5 BASOPHIL # (test code=BA#) 0.06 K/mm3 0.0-0.2 NUCLEATED RBC # (test code=NRBC#) 0.00 K/mm3 0.0-0.1 MANUAL DIFF REQUIRED (test code=MDIFF) NO CBC W/AUTO [id number] 06:25:00* Test Item Value Reference Range Comments WHITE BLOOD CELL (test code=WBC) K/mm3 4.5-12.5 RED BLOOD CELL (test code=RBC) mill/mm3 3.7-5.2 HEMOGLOBIN (test code=HGB) 12.0 gram/dL 11.5-15.5 HEMATOCRIT (test code=HCT) 37.9 % 36.0-46.0 MEAN CELL VOLUME (test code=MCV) fL 80-98 MEAN CELL HGB (test code=MCH) picogram 27.0-33.0 MEAN CELL HGB CONCETRATION (test code=MCHC) gram/dL 33.0-36.0 RED CELL DISTRIBUTION WIDTH (test code=RDW) % 11.6-16.2 RED CELL DISTRIBUTION WIDTH SD (test code=RDW-SD) fL 37.0-51.0 PLATELET COUNT (test code=PLT) K/mm3 150-450 MEAN PLATELET VOLUME (test code=MPV) fL 6.7-11.0 NEUTROPHIL % (test code=NT%) % 39.0-69.0 IMMATURE GRANULOCYTE % (test code=IG%) % 0.0-5.0 LYMPHOCYTE % (test code=LY%) % 25.0-55.0 MONOCYTE % (test code=MO%) % 0.0-10.0 EOSINOPHIL % (test code=EO%) % 0.0-5.0 BASOPHIL % (test code=BA%) % 0.0-1.0 NEUTROPHIL # (test code=NT#) K/mm3 1.8-7.7 LYMPHOCYTE # (test code=LY#) K/mm3 1.0-5.0 MONOCYTE # (test code=MO#) K/mm3 0-0.8 EOSINOPHIL # (test code=EO#) K/mm3 0.0-0.5 BASOPHIL # (test code=BA#) K/mm3 0.0-0.2 - XR CHEST 1 [id number] 05:58:00 FAX: Yaneth Ordaz MD [phone] [place]: St: REG Name: JOSÉ MIGUEL DAWN [facility] : [birth year] Age/S: 67/F [address] [facility] Unit #: [id number] Loc: [place] [address] Phys: Yaneth Ordaz MD Acct: [id number] Dis Date: Status: REG ER PHONE #: [phone] Exam Date: 03/20/2018 0543 FAX #: [phone] Reason: CODE SEPSIS EXAMS: CPT CODE: [id number] XR CHEST 1 V 55471 EXAM: - XR CHEST 1 V HISTORY: Code sepsis. COMPARISON: November 06, 2017. FINDINGS: Single AP view of the chest is provided. Heart size and vascularity are within normal limits. Calcific plaques in aorta. The lungs are clear of focal consolidation. No effusion, pneumot horax, or acute osseous abnormality. IMPRESSION: No radiographic evidence of acute cardiopulmonary process. Electron ically Signed by Otf Dee MD on 03/20/2018 at 0558 Reported and signed by: Otf Dee MD CC: Giovanna Ordaz MD Technologist: AIDAN GENTILE RT Trnscrd Date/Time/By: 03/20/2018 (0558) : By: [email or web address] Orig Print D/T: S: 03/20/2018 (0601) PAGE 1 Signed Report AB SPECIFICITY CLASS [id number] 10:01:00* Test Item Value Reference Range Comments DATE OF SERUM (BEAKER) (test afde=0757) 482154 SERUM # (BEAKER) (test rfcq=9255) 377704 AB SPECIFICITY CLASS II (BEAKER) (test awbp=0794) See Scanned Report HLA [id number] 12:59:00* Test Item Value Reference Range Comments HLA RESULT (BEAKER) (test bkml=9730) See Scanned Report HLA-A AG1 (BEAKER) (test ywtb=6176) HLA-A AG2 (BEAKER) (test fjgk=1045) HLA-B AG1 (BEAKER) (test aamn=9790) HLA-B AG2 (BEAKER) (test ivnw=2442) HLA-C AG1 (BEAKER) (test slvk=5932) HLA-C AG2 (BEAKER) (test fvzu=5511) HLA-DR AG1 (BEAKER) (test hhii=0687) HLA-DR AG2 (BEAKER) (test wzck=4622) HLA-DQ AG1 (BEAKER) (test gfmj=4953) HLA-DQ AG2 (BEAKER) (test aoup=5075) HLA-DRW (BEAKER) (test cguq=0229) FLOW PRA CLASS I AND [id number] 12:53:00* Test Item Value Reference Range Comments DATE OF SERUM (BEAKER) (test ypmd=5787) [id number] SERUM # (MIAH) (test yuic=9522) 388698 FLOW PRA CLASS I AND II (test zcgl=6718) See Scanned Report CYTOMEGALOVIRUS ANTIBODY, [id number] 18:08:00* Test Item Value Reference Range Comments CYTOMEGALOVIRUS IGG ANTIBODY (MIAH) (test ygve=006) Positive CYTOMEGALOVIRUS ANTIBODY, [id number] 18:08:00* Test Item Value Reference Range Comments CYTOMEGALOVIRUS IGM ANTIBODY (MIAH) (test ctop=625) Negative EBV-VCA ANTIBODY, [id number] 18:08:00* Test Item Value Reference Range Comments SARAHI-RUIZ VCA IGG (MIAH) (test yail=813) Positive EBV-VCA ANTIBODY, [id number] 18:08:00* Test Item Value Reference Range Comments SARAHI-RUIZ VCA IGM (MIAH) (test uvlv=030) Negative HEPATITIS C PCR, [id number] 11:14:00* Test Item Value Reference Range Comments HCV RESULT COMPONENT (MIAH) (test wana=3303) HCV RNA not detected HCV RNA not detected This test uses a Real-Time Polymerase Chain Reaction (RT-PCR) methodology and wa s performed using ELENA Ampliprep/ELENA TaqMan HCV test kit version 2.0 ([employer]).Reportable range for this assay is 15 - 100,000,000 IU per mL (1.18 - 8.00 Log IU/mL).URINE [id number] 10:43:00* Test Item Value Reference Range Comments CULTURE (MIAH) (test xltd=5880) ENTEROCOCCUS SPECIES 40-49,000 col/mL Enterococcus species Ampicillin (test code=26) Linezolid (test code=40) Nitrofurantoin (test code=23) Tetracycline (test code=2) Vancomycin (test code=13) <10,000 col/ml gram negative rods<10,000 col/ml skin [id number] 12:21:00 * Test Item Value Reference Range Comments RPR SCREEN ([facility]) (test azvv=056) Nonreactive Nonreactive VARICELLA ZOSTER ANTIBODY, [id number] 10:55:00* Test Item Value Reference Range Comments VARICELLA ZOSTER IGG (AL) (MIAH) (test dtip=5882) 2.2 Al VARICELLA ZOSTER RESULT INTERPRETATIONS: <=0.8 Al Nonreactive: Presumed non-immune to VZV 0.9-1.0 Al Equivocal >=1.1 Al Reactive: Presumed immune to VZVURINALYSIS W/ [id number] 16:04:00* Test Item Value Reference Range Comments COLOR (BEAKER) (test dequ=365) [place] CLARITY (BEAKER) (test wktr=037) Hazy SPECIFIC GRAVITY UA (BEAKER) (test krpl=306) 1.022 1.001-1.035 PH UA (BEAKER) (test zctu=637) 5.0 5.0-8.0 PROTEIN UA (BEAKER) (test xznn=793) 50 mg/dL Negative GLUCOSE UA (BEAKER) (test dexn=962) Negative Negative KETONES UA (BEAKER) (test qmhj=049) Negative Negative BILIRUBIN UA (BEAKER) (test ntfb=418) Negative Negative BLOOD UA (BEAKER) (test eqvu=869) Negative Negative NITRITE UA (BEAKER) (test tiiz=062) Negative Negative LEUKOCYTE ESTERASE UA (BEAKER) (test neiq=799) Large Negative UROBILINOGEN UA (BEAKER) (test uurj=925) 0.2 mg/dL 0.2-1.0 RBC UA (BEAKER) (test ypkr=250) 3 /HPF WBC UA (BEAKER) (test hvfo=479) 30 /HPF BACTERIA (BEAKER) (test nzrn=248) Few SQUAMOUS EPITHELIAL (BEAKER) (test yutx=039) 3 /HPF HYALINE CASTS (BEAKER) (test hgbx=977) 24 /LPF SOURCE(BEAKER) (test myyc=6685) LACTATE DEHYDROGENASE (LDH)2016-06-19 13:54:00* Test Item Value Reference Range Comments LACTATE DEHYDROGENASE (BEAKER) (test jqor=705) 315 U/L 125-220 [id number] 13:54:00* Test Item Value Reference Range Comments PHOSPHORUS (BEAKER) (test slgc=049) 2.6 mg/dL 2.3-4.7 COMPREHENSIVE METABOLIC [id number] 13:53:00* Test Item Value Reference Range Comments TOTAL PROTEIN (BEAKER) (test mdys=545) 7.9 gm/dL 6.0-8.3 ALBUMIN (BEAKER) (test elng=6287) 4.1 g/dL 3.5-5.0 ALKALINE PHOSPHATASE (BEAKER) (test byaw=868) 110 U/L 40-150 BILIRUBIN TOTAL (BEAKER) (test kroj=076) 0.4 mg/dL 0.2-1.2 SODIUM (BEAKER) (test zupl=366) 134 meq/L 136-145 POTASSIUM (BEAKER) (test hoxu=038) 3.2 meq/L 3.5-5.1 CHLORIDE (BEAKER) (test dnvk=126) 96 meq/L 98-107 CO2 (BEAKER) (test eisy=354) 27 meq/L 22-29 BLOOD UREA NITROGEN (BEAKER) (test oizl=329) 30 mg/dL 7-21 CREATININE (BEAKER) (test tbyn=866) 3.18 mg/dL 0.57-1.25 GLUCOSE RANDOM (BEAKER) (test dnek=278) 76 mg/dL 70-105 CALCIUM (BEAKER) (test sjhi=180) 9.3 mg/dL 8.4-10.2 AST (SGOT) (BEAKER) (test cail=617) 18 U/L 5-34 ALT (SGPT) (BEAKER) (test uaix=580) 9 U/L 6-55 EGFR (BEAKER) (test mpks=8248) 15 mL/min/1.73 sq m ESTIMATED GFR IS NOT ACCURATE CREATININE CLEARANCE IN PREDICTING GLOMERULAR FILTRATION RATE. ESTIMATED GFR IS NOT APPLICABLE FOR DIALYSIS PATIENTS. LIPID [id number] 13:53:00* Test Item Value Reference Range Comments TRIGLYCERIDES (BEAKER) (test qfky=726) 333 mg/dL CHOLESTEROL (BEAKER) (test nllh=567) 161 mg/dL HDL CHOLESTEROL (BEAKER) (test bdng=419) 39 mg/dL LDL CHOLESTEROL CALCULATED (BEAKER) (test ihlr=229) 55 mg/dL Triglyceride Reference Range: Low Risk <150 Borderline 150-199 High Risk 200-499 Very High Risk >=500Cholesterol Reference Range: Low Risk <200 Borderline 200-239 High Risk >240HDL Cholesterol Reference Range: Low Risk >=60 High Risk <40LDL Cholesterol Reference Range: Optimal <100 Near Optimal 100-129 Borderline 130-159 High 160-189 Very High >=190 HEMOGLOBIN [id number] 13:08:00* Test Item Value Reference Range Comments HEMOGLOBIN A1C (BEAKER) (test utiv=572) 6.6 % 4.3-6.1 HEPATITIS B SURFACE [id number] 12:40:00* Test Item Value Reference Range Comments HEPATITIS B SURFACE ANTIGEN (2) (BEAKER) (test ikeo=1759) Nonreactive Nonreactive ALPHA FETOPROTEIN (AFP), TUMOR [id number] 12:40:00* Test Item Value Reference Range Comments ALPHA-FETOPROTEIN (BEAKER) (test yhrv=9080) 2.1 ng/mL <10.0 Effective 12/29/2013: Reference Range ChangeNew: <10.0 Previous: 0.0-8.0 HEPATITIS B CORE ANTIBODY, [id number] 12:40:00* Test Item Value Reference Range Comments HEPATITIS B CORE IGM ANTIBODY (BEAKER) (test bmmx=095) Nonreactive Nonreactive HEPATITIS C [id number] 12:40:00* Test Item Value Reference Range Comments HEPATITIS C ANTIBODY (BEAKER) (test legy=696) Nonreactive Nonreactive HIV-1 ANTIGEN WITH HIV-1/2 [id number] 12:40:00* Test Item Value Reference Range Comments HIV-1 ANTIGEN WITH HIV 1\T\2 ANTIBODY (2) (BEAKER) (test ndlq=9425) Nonreactive Nonreactive HEPATITIS B SURFACE [id number] 12:40:00* Test Item Value Reference Range Comments HEPATITIS B SURFACE ANTIBODY (BEAKER) (test twzp=373) < mIU/mL <8.0 GAMMA GLUTAMYL TRANSFERASE (GGT)2016-06-19 12:32:00* Test Item Value Reference Range Comments GAMMA GLUTAMYL TRANSFERASE (BEAKER) (test xypc=788) 71 U/L 9-64 URIC [id number] 12:32:00* Test Item Value Reference Range Comments URIC ACID (BEAKER) (test ujst=075) 6.0 mg/dL 2.6-7.2 PTH, [id number] 12:17:00* Test Item Value Reference Range Comments PARATHYROID HORMONE INTACT (BEAKER) (test ukxt=969) 77.8 pg/mL 8.5-72.5 Effective 12/29/2013: Reference Range ChangeNew: 8.5-72.5 Previous: 15.0-90.0 PT/[id number] 12:06:00* Test Item Value Reference Range Comments PROTIME (BEAKER) (test txke=161) 13.2 seconds 11.7-14.7 INR (BEAKER) (test hyzq=200) 1.0 <=5.9 PARTIAL THROMBOPLASTIN TIME (BEAKER) (test egpp=000) 30.5 seconds 22.5-36.0 RECOMMENDED COUMADIN/WARFARIN INR THERAPY RANGESSTANDARD DOSE: 2.0 - 3.0 Inclu win: PROPHYLAXIS for venous thrombosis, systemic embolization; TREATMENT for pia ous thrombosis and/or pulmonary embolus.HIGH RISK: Target INR is 2.5-3.5 for pat ients with mechanical heart valves.PROTHROMBIN TIME/[id number] 12:05:00* Test Item Value Reference Range Comments PROTIME (BEAKER) (test vgrp=857) 13.2 seconds 11.7-14.7 INR (BEAKER) (test zlvt=686) 1.0 <=5.9 RECOMMENDED COUMADIN/WARFARIN INR THERAPY RANGESSTANDARD DOSE: 2.0 - 3.0 Inclu win: PROPHYLAXIS for venous thrombosis, systemic embolization; TREATMENT for pia ous thrombosis and/or pulmonary embolus.HIGH RISK: Target INR is 2.5-3.5 for pat ients with mechanical heart valves.CBC W/PLT COUNT & AUTO [id number] 11:49:00* Test Item Value Reference Range Comments WHITE BLOOD CELL COUNT (BEAKER) (test zlcd=893) 8.2 K/ L 4.0-10.0 RED BLOOD CELL COUNT (BEAKER) (test tgta=388) 3.65 M/ L 4.00-5.00 HEMOGLOBIN (BEAKER) (test jkgy=093) 12.2 GM/DL 12.0-15.0 HEMATOCRIT (BEAKER) (test owdg=198) 35.2 % 36.0-45.0 MEAN CORPUSCULAR VOLUME (BEAKER) (test sibz=958) 96.3 fL 82.0-99.0 MEAN CORPUSCULAR HEMOGLOBIN (BEAKER) (test czxb=842) 33.4 pg 27.0-33.0 MEAN CORPUSCULAR HEMOGLOBIN CONC (BEAKER) (test osie=102) 34.7 GM/DL 32.0-36.0 RED CELL DISTRIBUTION WIDTH (BEAKER) (test vslw=186) 15.4 % 10.3-14.2 PLATELET COUNT (BEAKER) (test vjmr=154) 263 K/CU MM 150-430 MEAN PLATELET VOLUME (BEAKER) (test muhc=101) 6.5 fL 6.5-10.5 NUCLEATED RED BLOOD CELLS (BEAKER) (test fnha=920) 0 /100 WBC 0-0 NEUTROPHILS RELATIVE PERCENT (BEAKER) (test ebjo=555) 60 % LYMPHOCYTES RELATIVE PERCENT (BEAKER) (test mpej=981) 28 % MONOCYTES RELATIVE PERCENT (BEAKER) (test kqba=089) 9 % EOSINOPHILS RELATIVE PERCENT (BEAKER) (test ixoo=447) 3 % BASOPHILS RELATIVE PERCENT (BEAKER) (test poze=945) 0 % NEUTROPHILS ABSOLUTE COUNT (BEAKER) (test guwh=105) 4.93 K/ L 1.80-8.00 LYMPHOCYTES ABSOLUTE COUNT (BEAKER) (test cbpx=658) 2.26 K/ L 1.48-4.50 MONOCYTES ABSOLUTE COUNT (BEAKER) (test bstg=185) 0.73 K/ L 0.00-1.30 EOSINOPHILS ABSOLUTE COUNT (BEAKER) (test dkhx=468) 0.21 K/ L 0.00-0.50 BASOPHILS ABSOLUTE COUNT (BEAKER) (test vroh=157) 0.04 K/ L 0.00-0.20 0.00
[2018-06-13] MEDS ORDERED: ATORVASTATIN CA40 MG PO (19:33)
[2018-06-13] MEDS ORDERED: ASPIR 8181 MG PO (19:33)
[2018-06-13] MEDS ORDERED: CATAPRES-TTS 31 EA TD (19:34)
[2018-06-13] MEDS ORDERED: VITAMIN D1000 UNI1 PO (19:34)
[2018-06-13] MEDS ORDERED: LASIX20 MG PO (19:35)
[2018-06-13] MEDS ORDERED: NORCO 10-325 T1 EACH PO (19:35)
[2018-06-13] MEDS ORDERED: MELATONIN3 MG PO (19:36)
[2018-06-13] MEDS ORDERED: METOPROLOL TART50 MG PO (19:37)
[2018-06-13] MEDS ORDERED: MIRTAZAPINE15 MG PO (19:38)
[2018-06-13] MEDS ORDERED: NIFEDIPINE ER30 M1 PO (19:39)
[2018-06-13] MEDS ORDERED: PANTOPRAZOLE SO40 MG PO (19:40)
[2018-06-13] MEDS ORDERED: ZOFRAN8 MG PO (19:40)
[2018-06-13] MEDS ORDERED: VITAMIN D35000 UNIT PO (19:42)
--- NOTE | 2018-06-13 20:19 | Diagnostic Imaging Report ---
EXAM: CT Abdomen and Pelvis WITHOUT contrast INDICATION: Abdominal pain. Nausea vomiting. Colostomy. COMPARISON: None. TECHNIQUE: Abdomen and pelvis were scanned utilizing a multidetector helical scanner from the lung base to the pubic symphysis without administration of IV contrast. Absence of intravenous contrast decreases sensitivity for detection of focal lesions and vascular pathology. Coronal and sagittal reformations were obtained. Routine protocol was performed. IV CONTRAST: None. ORAL CONTRAST: Gastrografin water mixture. RADIATION DOSE: Total DLP: 166.02 mGy*cm Estimated effective dose: (DLP x 0.015 x size factor) mSv COMPLICATIONS: None FINDINGS: LINES and TUBES: None. LOWER THORAX: Bibasilar dependent atelectasis. Coronary artery calcifications. HEPATOBILIARY: No focal hepatic lesions. No biliary ductal dilation. GALLBLADDER: Status post cholecystectomy. SPLEEN: No splenomegaly. PANCREAS: No focal masses or ductal dilatation. ADRENALS: No adrenal nodules KIDNEYS/URETERS: No hydronephrosis. 1.1 cm cyst in the posterior interpolar region of the right kidney on image 33 series 2. No stones. GI TRACT: No bowel dilatation to suggest obstruction. An ostomy is present the right lower quadrant. Rectal anastomosis is present with contrast proximal and distal to it. No bowel dilatation to suggest obstruction. Gas bubbles in the anterior pelvis anteriorly on image 55 series 2 are likely intraluminal. Appendix is normal. PELVIC ORGANS/BLADDER: Unremarkable. LYMPH NODES: No lymphadenopathy. VESSELS: There is moderate atherosclerotic disease in the aorta and major arterial branches. PERITONEUM / RETROPERITONEUM: No free air or fluid. BONES: Vertebral hemangiomata at T11 and L5. SOFT TISSUES: Postoperative changes in the anterior abdominal wall, with an apparent open wound in the infraumbilical region containing a small volume of gas as seen on axial image 51 series 2. Soft tissue prominence in the subjacent anterior abdominal wall in the upper pelvis on image 55 series 2. IMPRESSION: 1. Postoperative changes involving the periumbilical and infraumbilical anterior abdomen, with what appears represent an open wound and inflammatory changes, however, no drainable fluid collections. The right lower quadrant ostomy is grossly intact. Signed by: Dr. Amber Huerta M.D. on 06/13/2018 8:15 PM
[2018-06-13] MEDS: INSULIN LISPRO 100 UNIT/1 ML 3ML VIAL SQ SCH (21:00)
[2018-06-13 21:08] VITALS: BP 138/63
--- NOTE | 2018-06-13 21:30 | NUR ---
Patient received via stretcher from ER. AAO x 3. Admission history obtained. Initial physical assessment performed. Patient had no complaints of pain. Respirations even and non-labored. Ileostomy bag in place (RLQ). Abdominal incision noted with moderate serous drainage. Old dressing removed and new Wet-to-Dry dressing applied. Patient oriented to room, call light and plan of care. Fall precautions in place. Patient instructed to call for assistance when needed. Call light within reach.
[2018-06-13 22:00] VITALS: BP 138/63
[2018-06-13] MEDS ORDERED: SODIUM CHLORIDE 0.9% 1000ML 1,000 ML ONE (22:25)
[2018-06-14] VITALS (9 sets, daily range): BP systolic 134–178; BP diastolic 60–95
[2018-06-14] MEDS: PIPERACILLIN/TAZO 2.25 GM 50 ML IV SCH ×3 (02:20→17:15)
--- NOTE | 2018-06-14 03:30 | NUR ---
Blood specimen sent to lab for analysis of cardiac enzymes.
[2018-06-14 04:27] LABS: CREATINE KINASE MB 1.1 ng/mL (0-5.0)
--- NOTE | 2018-06-14 07:00 | NUR ---
RECEIVED PATIENT RESTING IN BED. NO ACUTE DISTRESS NOTED. CALL LIGHT WITHIN REACH. BED IN THE LOWEST POSITION.
--- NOTE | 2018-06-14 07:06 | NUR ---
Walking rounds done. Shift report given to oncoming nurse regarding patient's status.
[2018-06-14] MEDS: INSULIN LISPRO 100 UNIT/1 ML 3ML VIAL SQ SCH ×4 (07:30→20:25)
[2018-06-14 07:41] LABS: BASOPHILS % 0.3 % (0.0-1.0); EOSINOPHILS % 0.3 % (0.0-6.0); HEMATOCRIT 25.2 % (34.2-44.1); HEMOGLOBIN 8.4 g/dL (12.0-16.0); LYMPHOCYTES # (AUTO) 1.4 (1.0-3.2); LYMPHOCYTES % 14.4 % (18.0-39.1); MEAN CORPUSCULAR HEMOGLOBIN 29.2 pg (28-32); MEAN CORPUSCULAR HGB CONC 33.3 g/dL (31-35); MONOCYTES # (AUTO) 0.5 (0.2-0.8); MONOCYTES % 5.1 % (4.4-11.3); NEUTROPHILS # (AUTO) 7.4 (2.1-6.9); PLATELET COUNT 386 x10e3/uL (140-360); RED BLOOD COUNT 2.88 x10e6/uL (3.6-5.1); RED CELL DISTRIBUTION WIDTH 16.1 % (11.7-14.4)
[2018-06-14 07:48] LABS: MEAN CORPUSCULAR VOLUME 87.5 fL (81-99)
[2018-06-14 08:14] LABS: ALBUMIN 2.3 g/dL (3.5-5.0); ALBUMIN/GLOBULIN RATIO 0.5 (0.8-2.0); ANION GAP 21.4 mmol/L (8-16); CREATININE, SERUM 3.33 mg/dL (0.57-1.11); POTASSIUM 4.4 mmol/L (3.5-5.1)
[2018-06-14 08:16] LABS: CALCIUM 6.7 mg/dL (8.4-10.2)
[2018-06-14] MEDS ORDERED: CALCIUM GLUCONATE 10% INJ 9.3 MEQ in SODIUM CHLORIDE 0.9% 100 ML 100 ML IV ONE (09:00)
[2018-06-14 10:44] LABS: COLOR,URINE YELLOW (YELLOW); KETONES,URINE NEGATIVE (NEGATIVE); LEUKOCYTE ESTERASE ,URINE 1+ (NEGATIVE); NITRITE,URINE NEGATIVE (NEGATIVE); PROTEIN,URINE DIPSTICK 2+ (NEGATIVE)
[2018-06-14 10:45] LABS: BILIRUBIN,URINE NEGATIVE (NEGATIVE); URINE UROBILINOGEN 0.2 mg/dL (0.2 - 1)
[2018-06-14 10:47] LABS: BACTERIA,URINE MANY /HPF; CLARITY,URINE CLOUDY (CLEAR); EPITHELIAL CELLS,URINE MODERATE /LPF; WBC,URINE (MAN) >50 /HPF (0-5)
[2018-06-14 10:48] LABS: CREATININE,URINE RANDOM 95.26 mg/dL (47-110)
[2018-06-14 10:50] LABS: SODIUM,URINE < 20 mmol/L
[2018-06-14] MEDS: MORPHINE SULFATE INJ 4 MG/ML INJ 1ML IV PRN ×2 (11:38→20:00)
--- NOTE | 2018-06-14 12:23 | Diagnostic Imaging Report ---
EXAM: Renal Ultrasound INDICATION: Acute on chronic renal insufficiency. COMPARISON: None TECHNIQUE: Transverse and longitudinal images of the kidneys and bladder were obtained. FINDINGS: Right Kidney: Length: 11.2 x 4.2 x 3.0 cm, the renal cortex measures 1.4 cm Appearance: Normal echogenicity. Collecting system: No hydronephrosis Stones: None Cyst/Mass: No evidence of solid mass. There is a predominately anechoic right lower pole cyst, measuring up to 1.5 cm. Left Kidney: Length: 9.4 x 4.5 x 3.7 cm, the renal cortex measures 1.2 cm Appearance: Normal echogenicity. Collecting system: No hydronephrosis Stones: None Cyst/Mass: None Bladder: Bilateral ureteral jets are not seen. The prevoid volume is 85 cc. No post void volume. IMPRESSION: No evidence of hydronephrosis or renal stone. Signed by: Dr. Kraig Lama MD on 06/14/2018 12:19 PM
[2018-06-14 12:26] LABS: CREATINE KINASE MB 1.3 ng/mL (0-5.0)
--- NOTE | 2018-06-14 15:58 | NUR ---
CASE MANAGEMENT INITIAL ASSESSMENT [facility] Director to bedside to discuss plan of care with patient/family. CM/SW role and care transitions discussed. Anticipated discharge plan discussed along with duration of care. CM/SW discussed patients right to make decisions in care. CM/SW work hours given. Patient lives: AT [facility] Admit/Transfer: TO ED VIA EMS Hospital/ER visits since last admit:YES POA/Emergency contact: : VAIBHAV BEARDEN [phone] Current/Previous Home Health: 0 PCP/Follow-up Care: Current/Previous DME: HAS ILEOSTOMY Medications (referring to index hospitalization or the first time you were in the hospital) a. Were changes made in your medications when you were in the hospital on [date of index hospitalization]? Yes No X Not sure Explain: Note: If no or not sure, please skip to question d b. Did you understand the changes? Yes No Explain: c. Were you able to obtain your new medications right away? Yes No n/a SNF only Explain: d. Were you able to take your medications like the doctor wanted you to? Yes No Explain: [facility] e. Did the hospital give you an accurate, easy to understand list of medications when you left? Yes No n/a SNF only Explain: L[facility]ES IN [facility]EN[facility]ENTI[facility] Scale of 1-10 how comfortable does patient feel with disease management in outpatient setting: LIVES IN PENITENTIARY Other Services: 0 Employment Status: RETIRED Areas of Concerns 0 Referral Needs: 0 Education Needs: IMM/FORD given and signed (if applicable): IMM UPON ADMISSION Goal for discharge: TO RETURN TO PENITENTIARY CM/SW left business card at the bedside with contact information. Name and number was also written on the patients whiteboard. Patient verbalized understanding of discussion. CM will follow-up with ongoing discharge and transition of care needs.
[2018-06-14] MEDS: METOPROLOL TARTRATE 50 MG TAB PO SCH (16:27)
[2018-06-14] MEDS: NIFEDIPINE CR 30 MG TAB PO SCH (16:28)
[2018-06-14] MEDS ORDERED: ONDANSETRON HCL 4 MG ORAL DISINTEGRATING TAB PO PRN (16:30)
[2018-06-14] MEDS ORDERED: SODIUM BICARBONATE 650 MG TAB PO SCH (17:00)
[2018-06-14] MEDS: ENOXAPARIN SOD INJ 40 MG/0.4 ML SYR SC SCH (17:00)
--- NOTE | 2018-06-14 17:05 | NUR ---
PATIENT REFUSES LOVENOX SQ SCHEDULED. SHE STATED SHE WILL TALK TO MD ABOUT IT. NOTIFIED MD, NO NEW ORDERS RECEIVED.
[2018-06-14] MEDS: SODIUM CHLORIDE 0.9% 1000ML 1,000 ML IV SCH (17:15)
--- NOTE | 2018-06-14 19:29 | NUR ---
REPORT GIVEN TO ONCOMING NURSE, PATIENT IS RESTING IN BED. NO ACUTE DISTRESS NOTED. FAMILY AT BEDSIDE. CALL LIGHT WITHIN REACH. BED IN THE LOWEST POSITION.
--- NOTE | 2018-06-14 19:43 | Consultation ---
DATE OF CONSULTATION: 06/14/2018 HISTORY OF PRESENT ILLNESS: The patient is a 67-year-old female, well known to me. 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 She had healed adequately after that surgery with open wound but ileostomy functioning well and she was tolerating diet. She was sent to a intermediate facility. For the last two days, she has developed nausea with very decreased p.o. intake, although her ileostomy continued to function. She came to the emergency room where she was admitted to the hospital because of her nausea and dehydration. The patient has received IV fluids. She feels better now. She said her nausea is gone. Ileostomy is functioning well. CT scan of the abdomen reveals only the open abdominal wound with no other significant abnormalities. PAST MEDICAL HISTORY: Significant for hypertension and hypercholesterolemia. MEDICATIONS: Listed in the chart. 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 ALLERGIES: SHE HAS AN ALLERGY TO IBUPROFEN. MEDICATIONS: Listed in the chart. FAMILY HISTORY: Noncontributory. SOCIAL HISTORY: The patient is . Does not smoke cigarettes or drink alcohol. REVIEW OF SYSTEMS: She has not had any fever. PHYSICAL EXAMINATION: GENERAL: The patient is awake and alert. VITAL SIGNS: Heart rate around 100. She is afebrile. Blood pressure is normal. HEENT: There is no scleral icterus. NECK: No masses. LUNGS: Equal breath sounds are clear bilaterally. CARDIAC: Regular rate and rhythm. ABDOMEN: No distention. There is a wound in the midline, which is clean with a small amount of serous drainage. No purulence seen. No bilious fluid. Ileostomy in the right lower quadrant has GI contents draining. EXTREMITIES: Somewhat cachectic, but slight edema. LAB TESTS: White blood count on admission was 20.36, but repeat is 9.4, hemoglobin 8.4, and hematocrit 25. Chemistries are elevated, BUN 84, and creatinine 3.3. ASSESSMENT: A 67-year-old female who was admitted with dehydration, likely secondary to losses from ileostomy. improved with IV fluids. PLAN: To start her on clear liquid diet, advance as tolerated. Continue wound care. There are no findings that warrant surgical intervention at this time. Thank you for asking me to see Ms. Méndez. Kameron W MD ELIANA Vences/GABI /[phone]
[2018-06-14] MEDS: MIRTAZAPINE 15 MG TAB PO SCH (20:00)
[2018-06-14] MEDS: ATORVASTATIN 40 MG TAB PO SCH (20:00)
[2018-06-14] MEDS ORDERED: MELATONIN 5 MG TABLET PO PRN (21:00)
--- NOTE | 2018-06-14 21:10 | NUR ---
PATIENT'S GOWN OBSERVED SOIL WITH ILEOSTOMY SECRETION. UPON ASSESSMENT OF THE WOUND, IT WAS SATURATED. WOUND CARE WITH WET TO DRY DRESSING CHANGE PROVIDED TO THE ABDOMINAL WOUND, COMPLETE ILEOSTOMY CARE PROVIDED. PATIENT KEPT CLEAN AND DRY, SKIN PROTECTANT APPLIED TO THE LAURA AREAS TO THE SACRUM AND SHE'S REPOSITION ON HER RIGHT SIDE FOR COMFORT. CALL LIGHT WITHIN EASY REACH, SHE'S ENCOURAGED TO CALL FOR ASSISTANCE NEEDED.
[2018-06-15] VITALS (7 sets, daily range): BP systolic 121–163; BP diastolic 60–79
--- NOTE | 2018-06-15 00:09 | History and Physical ---
CHIEF COMPLAINT: Nausea, vomiting, and dehydration. HISTORY OF PRESENT ILLNESS: This is a 67-year-old female. She is known to my service from many hospitals, who was recently just discharged from [facility] in May after having an enterocutaneous fistula closure and local debridement performed by General Surgery in which she had continuous leakage from the anterior cutaneous fistula for months. Also, has a history of moderate protein-calorie malnutrition, failure to thrive, and generalized weakness with debilitation, who comes into the ED from the [facility] facility due to nausea, vomiting, and dehydration ongoing for the last 1 to 2 days. The patient at bedside reports that [facility] facility did an amazing job and that she was able to ambulate very well, but of note, the last two days, she has noticed she has been having some abdominal pain, nausea, and vomiting. She reports that she is unable to keep any food down leading to her dehydration. The patient is now currently on clear liquid diet initiated by General Surgery. She denies any chest pain, palpitation, nausea, vomiting. She did have a left heart catheterization on her last admission at [facility] last month, found to be negative with no need for any intervention at that time. The patient was seen and evaluated at bedside on the medical floor. She is currently doing well with no other issues at this time. She is already on clear liquid diet. Vital signs were stable when I evaluated her. REVIEW OF SYSTEMS: 1. Pertinent positives abdominal pain, nausea, vomiting, dehydration. 2. Pertinent negatives: Denies any chest pain, palpitation, dysuria, hematuria, frequency, urgency, lightheadedness, dizziness, cough, congestion, fever, or any other complaints. The rest of 14-point review of systems have been reviewed with the patient and are negative. ALLERGIES: IBUPROFEN. HOME MEDICATIONS: 1. Aspirin 81 mg daily. 2. Lipitor 40 mg daily. 3. Cholecalciferol. 4. Vitamin D3, 2000 units daily. 5. 0.3 mg p.o. t.i.d. daily. 6. Melatonin 3 mg at bedtime as needed for insomnia. 7. Metoprolol 50 mg p.o. b.i.d. 8. Mirtazapine 7.5 mg at bedtime. 9. Nifedipine 60 mg p.o. b.i.d. 10. Zofran. 11. Protonix 40 mg daily. PAST MEDICAL HISTORY: Enterocutaneous fistula repaired over the last several months, history of moderate protein-calorie malnutrition, hypertension, history of acute kidney injury secondary to dehydration, improved. PAST SURGICAL HISTORY: Extensive surgical history with enterocutaneous fistula repaired, has a syndrome as well. Multiple reconstructive abdominal surgery. Please read General Surgery's note for full surgical history. FAMILY HISTORY: Hypertension, diabetes. SOCIAL HISTORY: No drugs. No alcohol. Does not smoke. Good social support. She is . PHYSICAL EXAMINATION: VITAL SIGNS: Temperature is 96.6, pulse is 117, respiratory rate 16, blood pressure is 178/95, pulse ox 100% on room air. LABORATORY FINDINGS: Show white count 9.3, hemoglobin 8.4, hematocrit 25, platelets of 386. PT 15, INR 1.2, PTT 36. Chemistry, sodium 135, potassium is 4.4, chloride 105, bicarb is 13, anion gap of 21, BUN 84, creatinine is 3.3, glucose is 103, calcium 6.7, total bilirubin was 0.4. AST 26, ALT 12, alkaline phosphatase 231, albumin 2.3. Lipase was 28. Troponins were all negative. Urinalysis is concerning for underlying urinary tract infection. Blood cultures pending. Preliminary urine cultures are no growth. IMAGING STUDIES: Chest x-ray shows no radiographic abnormalities. CT abdomen and pelvis shows postoperative changes of all the periumbilical and infraumbilical anterior abdomen with what appears represents no open wound and inflammatory changes, but no evidence of any drainable fluid collections. The right lower quadrant ostomy is grossly intact. Renal ultrasound performed, found to be within normal range. No evidence of obstruction or hydronephrosis. PHYSICAL EXAMINATION: GENERAL: Not in acute distress. Alert and oriented x3. Cooperative on examination. HEENT: Head is normocephalic and atraumatic. Eyes; pupils are equal, round, and reactive to light bilaterally. Extraocular muscles are intact bilaterally. NECK: Supple. Good range of motion throughout. No evidence of erythema or exudate in the posterior pharynx. Has poor dentition. PULMONARY: Clear to auscultation bilaterally. No wheezing, rales, or rhonchi. No crackles appreciated. CARDIOVASCULAR: Positive S1, S2. No murmurs, rubs, or gallops appreciated. ABDOMEN: Soft, nondistended, nontender to palpation. Bowel sounds present. MUSCULOSKELETAL: Strength is 5/5 throughout. No evidence of any muscle deficits on examination. No weakness appreciated. NEUROLOGIC: Cranial nerves II through XII are grossly intact. No evidence of any neurological deficits on exam. SKIN: Intact. Warm to touch. Good cap refill. PSYCHIATRIC: Normal affect and mood. EXTREMITIES: No edema. Good range of motion throughout. IMPRESSION: 1. Abdominal pain with nausea, vomiting, and dehydration. 2. Recent status post enterocutaneous fistula repair with a right-sided ostomy, still has a surgical dehiscence in the anterior abdominal wall. 3. Acute kidney injury. 4. Metabolic acidosis, secondary to renal failure. 5. Hypertension. 6. Leukocytosis, could be stress-induced versus infection. 7. Moderate protein-calorie malnutrition. PLAN: At this time, continue with IV fluid hydration. She is improving tremendously from a nausea/vomiting standpoint. She has been initiated on clear liquid diet per General Surgery. General Surgery and Renal has been consulted. Get a.m. labs. Resume same antihypertensive medications. In relation to her white count, likely stress-induced, less likely to be infectious. We will go ahead and consult with ID to evaluate and monitor closely. Get a.m. labs. She is afebrile as well. Add supplemental shakes as she has underlying moderate protein-calorie malnutrition. Continue with clear liquid diet. Add have Lovenox for DVT prophylaxis. We can also add sodium bicarbonate tabs for underlying metabolic acidosis. Continue with IV antibiotics as well. MD HOLGER Ramirez/MODL /[id number]
[2018-06-15] MEDS: MORPHINE SULFATE INJ 4 MG/ML INJ 1ML IV PRN ×5 (01:28→21:26)
--- NOTE | 2018-06-15 01:32 | NUR ---
CHANGED SOILED WOUND DRESSING AND LEAKING ILEOSTOMY AGAIN. ILEOSTOMY BAG CONTINUED TO LEAK, TOWEL PLACED UNDERNEATH BAG TO OBSERVE DRAINAGE, WILL CONSULT WITH WOUND CARE REGARDING THE LEAKAGE.
[2018-06-15] MEDS: PIPERACILLIN/TAZO 2.25 GM 50 ML IV SCH ×2 (02:12→09:09)
--- NOTE | 2018-06-15 04:24 | NUR ---
MADE BEDSIDE ROUNDS, PATIENT SHOWS NO SIGNS OF DISTRESS, ILEOSTOMY STILL IN PLACE, NO SIGNIFICANT AMOUNT OF DRAINAGE, WOUND INTACT DRY AND CLEAN. PATIENT IS SLEEPING COMFORTABLY, CALL LIGHT WITH REACH, WILL CONTINUE TO MONITOR.
[2018-06-15 06:28] LABS: BASOPHILS % 0.3 % (0.0-1.0); EOSINOPHILS # (AUTO) 0.1 (0.0-0.4); EOSINOPHILS % 0.6 % (0.0-6.0); HEMATOCRIT 30.7 % (34.2-44.1); HEMOGLOBIN 10.2 g/dL (12.0-16.0); LYMPHOCYTES % 18.6 % (18.0-39.1); MEAN CORPUSCULAR HEMOGLOBIN 29.1 pg (28-32); MEAN CORPUSCULAR HGB CONC 33.2 g/dL (31-35); MEAN CORPUSCULAR VOLUME 87.7 fL (81-99); MONOCYTES # (AUTO) 0.7 (0.2-0.8); MONOCYTES % 6.6 % (4.4-11.3); NEUTROPHILS # (AUTO) 8.1 (2.1-6.9); NEUTROPHILS % 73.3 % (38.7-80.0); PLATELET COUNT 436 x10e3/uL (140-360); RED CELL DISTRIBUTION WIDTH 16.3 % (11.7-14.4)
[2018-06-15 06:45] LABS: ANION GAP 18.7 mmol/L (8-16); CALCIUM 8.8 mg/dL (8.4-10.2); CREATININE, SERUM 1.84 mg/dL (0.57-1.11); POTASSIUM 3.7 mmol/L (3.5-5.1)
--- NOTE | 2018-06-15 06:50 | NUR ---
RECEIVED PATIENT RESTING IN BED. NO ACUTE DISTRESS NOTED. PAIN AT A TOLERABLE LEVEL AT THIS TIME. CALL LIGHT WITHIN REACH. BED IN THE LOWEST POSITION.
[2018-06-15] MEDS: INSULIN LISPRO 100 UNIT/1 ML 3ML VIAL SQ SCH ×4 (07:30→21:00)
[2018-06-15] MEDS: SODIUM CHLORIDE 0.9% 1000ML 1,000 ML IV SCH ×2 (08:20)
[2018-06-15] MEDS: ONDANSETRON HCL INJ 2MG/ML 2ML 2 MG/ML VIAL IV PRN ×2 (08:26→21:08)
[2018-06-15] MEDS: ASPIRIN 81 MG CHEW TAB PO SCH (08:28)
[2018-06-15] MEDS: PANTOPRAZOLE SOD 40 MG TABEC PO SCH (08:29)
[2018-06-15] MEDS: CHOLECALCIFEROL 1,000 UNIT TAB PO SCH (08:29)
[2018-06-15] MEDS: CLONIDINE HCL 0.3MG/24 HR PATCH TD SCH (08:29)
[2018-06-15] MEDS: METOPROLOL TARTRATE 50 MG TAB PO SCH ×2 (08:29→16:52)
[2018-06-15] MEDS: NIFEDIPINE CR 30 MG TAB PO SCH ×2 (08:29→16:53)
[2018-06-15] MEDS: SODIUM BICARBONATE 650 MG TAB PO SCH ×3 (08:30→21:07)
--- NOTE | 2018-06-15 10:21 | Consultation ---
DATE OF CONSULTATION: 06/15/2018 Nephrology Consultation REASON FOR CONSULTATION: [id number] kidney disease. 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 intake and nausea and vomiting for several days. Her serum creatinine was noted to be above 4, so this Nephrology consultation was obtained for further evaluation and management. At the time of examination, she was sleeping, but arousable and felt a whole lot better. She denied any significant nausea or vomiting at the present time. Significant abdominal pain, fevers, chills, shortness of breath, cough, phlegm, or any focal weakness. PAST MEDICAL AND SURGICAL HISTORY: As above. PERSONAL AND SOCIAL HISTORY: No history of alcohol or tobacco. MEDICATIONS: See the medication sheet that was reviewed. PHYSICAL EXAMINATION: GENERAL: She appears in no acute distress. I's and O's 1200 in and 2000 out. VITAL SIGNS: Blood pressure 124/60, respirations 16, heart rate 117, and temperature 97. HEENT: Head is atraumatic, normocephalic. NECK: Supple. CHEST: Revealed fair air entry. HEART: S1 and S2 with tachycardia. ABDOMEN: Bandaged with functional colostomy. Mildly tender. Bowel sounds positive. EXTREMITIES: No edema. 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 neurological focal deficits noted. LABORATORY DATA AND IMAGING: CT scan of the abdomen and pelvis did not show any acute pathology. Chest x-ray was negative. CBC; white cell count 10.9, hemoglobin 10.2, hematocrit 30.7, and platelets 436. Chemistry; sodium 134, potassium 3.7, chloride 102, CO2 17, anion gap 18.7, BUN 59, creatinine 1.8, down from 4.5 on admission, it was 3.3 yesterday. IMPRESSION: 1. Acute on chronic kidney disease with improved serum creatinine, getting close to her baseline with good urine output, stable electrolytes, and improved volume status. 2. Normal anion gap metabolic acidosis secondary to chronic kidney disease/acute kidney injury and questionable diarrhea/renal tubular acidosis. 3. Status post surgical repair of enterocutaneous fistula recently at [facility]. PLAN: Strict I's and O's. No nonsteroidal antiinflammatory drugs, LIANE inhibitors, in a.m. Continue IV fluids. Increase sodium bicarbonate to 1300 mg t.i.d. from b.i.d. Case was discussed with and son. Further recommendations to follow. Thank you for the consultation. Keith Price MD SA/MODL /[id number]
--- NOTE | 2018-06-15 14:40 | NUR ---
Visit made by the Spiritual Care Department Pastoral Visitor, Dale Brown. PV provided pastoral presence, hospitality, and supportive listening. Pastoral Visitor informed pt/family of the scope of [employer] and availability. FAUSTO SKY [employer] Spiritual Care Department O: [phone] Pager: [phone] ([phone] number calling from)
[2018-06-15] MEDS: ENOXAPARIN SOD INJ 40 MG/0.4 ML SYR SC SCH (16:53)
--- NOTE | 2018-06-15 16:53 | NUR ---
PATIENT STILL REFUSING LOVENOX TODAY.
[2018-06-15] MEDS ORDERED: CEFTRIAXONE SOD 1 GM/NS 50 ML 50 ML IV SCH (18:00)
--- NOTE | 2018-06-15 18:17 | Progress Note ---
DATE: 06/15/2018 Medicine Progress Note SUBJECTIVE: The patient reports doing well, eating with no complications. Her creatinine improved. She has good urine output with no other issues. OBJECTIVE: VITAL SIGNS: Temperature 97, pulse 85, respiratory rate is 16, blood pressure 126/67, and pulse ox 99% on room air. GENERAL: Not in acute distress. Alert and oriented x3. Cooperative on examination. HEENT: Head is normocephalic and atraumatic. Eyes; pupils are equal, round, and reactive to light bilaterally. Extraocular movements are intact bilaterally. NECK: Supple. Good range of motion. MUSCULOSKELETAL: No evidence of any muscle deficits on examination. No weakness appreciated. NEUROLOGICAL: Cranial nerves II through XII grossly intact. No evidence of any neurological deficits on exam. SKIN: Intact. Warm to touch. Good cap refill. PSYCHIATRIC: Normal affect and mood. EXTREMITIES: No edema. Good range of motion throughout. LAB FINDINGS: Show white count 10.9, hemoglobin 10.3, hematocrit 31, and platelets of 436. Sodium 134, potassium 3.7, chloride 103, bicarb 17, anion gap of 18, BUN 59, creatinine 1.8, and glucose is 102. MICROBIOLOGY: Urine culture shows gram-negative rods and Enterococcus. Blood cultures, no growth. IMPRESSION: 1. Abdominal pain with associated nausea, vomiting, and dehydration, now improving. 2. Recent status post enterocutaneous fistula repair with right-sided ostomy with small incisional surgical dehiscence of the anterior abdominal wall. 3. Acute kidney injury. 4. Metabolic acidosis secondary to renal failure. 5. Hypertension. 6. Leukocytosis, could be stress induced versus infection, but improving. 7. Moderate protein-calorie malnutrition. PLAN: At this time, continue IV hydration. Creatinine has improved tremendously. She is on regular diet now. Blood pressure is stable. Continue same medications. The patient is on Lovenox for DVT prophylaxis. MD HOLGER Ramirez/MODL /[id number]
--- NOTE | 2018-06-15 18:57 | NUR ---
RECEIVED FROM PREVIOUS NURSE. CALL LIGHT WITHIN REACH. PATIENT IN BED. NO PAIN OR DISTRESS NOTED.
--- NOTE | 2018-06-15 19:38 | NUR ---
REPORT GIVEN TO ONCOMING NURSE. PATIENT IS RESTING IN BED, NO ACUTE DISTRESS NOTED. NO S/S OF PAIN NOTE. CALL LIGHT WITHIN REACH. BED IN THE LOWEST POSITION.
[2018-06-15] MEDS: MIRTAZAPINE 15 MG TAB PO SCH (21:07)
[2018-06-15] MEDS: ATORVASTATIN 40 MG TAB PO SCH (21:07)
--- NOTE | 2018-06-15 23:43 | Consultation ---
DATE OF CONSULTATION: REASON FOR CONSULTATION: Abdominal wall abscess. HISTORY OF PRESENT ILLNESS: This patient who is a 67-year-old white female, well known to me from previous hospitalization. The patient was noted to have enterocutaneous fistula. She had dehiscence of the wound. She had several surgeries. Most recently, she had an attempt to close the fistula. The wound dehisced and the patient had open wound as well as addition to the ileostomy, which was in [place], was treated with IV antibiotic and then the wound started to heal nicely. She was discharged to skilled care facility. Now, she is coming with nausea, not feeling well, dehydrated. She tells me she has high output from the fistula. The ileostomy is still functioning. CAT scan was done, showed there is no abscess. The patient is currently lying in bed comfortably. When she first came, her white count was 20.36, hemoglobin 11.2, but came down to 10.9. Her white count came back to 10.9. Her sodium 134, potassium 3.7, creatinine 1.84. When she first came also glucose was elevated. She is currently on Zosyn, Protonix, Catapres, Remeron, Lovenox. The patient had abdominal CAT scan as mentioned above showed postoperative changes with open wound, but there is no collection of fluid. PAST MEDICAL HISTORY: Hypercholesteremia, hypertension. PAST SURGICAL HISTORY: Multiple abdominal surgeries. REVIEW OF SYSTEMS: HEENT: Negative. PULMONARY: Negative. CARDIAC: Negative. : Negative. GI: Negative at the present time. SKIN: Negative. LABORATORY DATA: Reviewed. Chart reviewed. PHYSICAL EXAMINATION: GENERAL: She is currently alert, oriented, does not seem to be in acute distress. VITAL SIGNS: Stable, afebrile. There is no fever since admission. HEENT: Normocephalic, not icteric. NECK: Supple. CHEST: Clear bilateral. HEART: S1, S2. No S3, S4, or murmur. ABDOMEN: Soft. Bowel sounds present. No tenderness. She had open wound midline. EXTREMITIES: No edema. IMPRESSION: 1. Abdominal wound. I do not think there is need for antibiotic. Continue with local care. 2. Concern about fistula. Continue to observe clinically. 3. Dehydration on admission. 4. Complicated surgical history as mentioned above. We will follow. MD NAYLA Santiago /[id number]
[2018-06-16] VITALS (8 sets, daily range): BP systolic 128–153; BP diastolic 59–81
[2018-06-16] MEDS: MORPHINE SULFATE INJ 4 MG/ML INJ 1ML IV PRN ×3 (01:30→22:03)
[2018-06-16 05:49] LABS: ANION GAP 12.2 mmol/L (8-16); CALCIUM 7.4 mg/dL (8.4-10.2); CREATININE, SERUM 1.06 mg/dL (0.57-1.11); POTASSIUM 3.2 mmol/L (3.5-5.1)
--- NOTE | 2018-06-16 07:15 | NUR ---
Gave report to oncoming nurse. Call light within reach. Patient in bed.
[2018-06-16] MEDS: INSULIN LISPRO 100 UNIT/1 ML 3ML VIAL SQ SCH ×4 (08:30→20:44)
[2018-06-16] MEDS: SODIUM CHLORIDE 0.9% 1000ML 1,000 ML IV SCH ×2 (08:45→20:45)
[2018-06-16] MEDS: ASPIRIN 81 MG CHEW TAB PO SCH (09:00)
[2018-06-16] MEDS: METOPROLOL TARTRATE 50 MG TAB PO SCH ×2 (09:00→16:51)
[2018-06-16] MEDS: CHOLECALCIFEROL 1,000 UNIT TAB PO SCH (09:00)
[2018-06-16] MEDS: PANTOPRAZOLE SOD 40 MG TABEC PO SCH (09:00)
[2018-06-16] MEDS: NIFEDIPINE CR 30 MG TAB PO SCH ×2 (09:00→16:51)
[2018-06-16] MEDS: SODIUM BICARBONATE 650 MG TAB PO SCH ×3 (09:00→21:24)
[2018-06-16] MEDS: CLONIDINE HCL 0.3MG/24 HR PATCH TD SCH (09:00)
--- NOTE | 2018-06-16 10:38 | NUR ---
IMM letter delivered and explained to pt. She verbalized understanding. Signed copy placed in chart. Copy placed in pt's transition of care folder.
[2018-06-16] MEDS ORDERED: CEFEPIME HCL 1 GM VIAL IV SCH (10:45)
[2018-06-16] MEDS ORDERED: CEFEPIME 1GM/NS 0.9% 50 ML 50 ML IV SCH (11:00)
[2018-06-16] MEDS: CEFEPIME 1GM/NS 0.9% 50 ML 50 ML IV SCH ×2 (12:00→21:35)
[2018-06-16] MEDS: LINEZOLID 600 MG/D5W 300ML 300 ML IV SCH (13:00)
--- NOTE | 2018-06-16 13:47 | NUR ---
PT IS FROM [facility]
--- NOTE | 2018-06-16 14:22 | NUR ---
WOUND CARE CONSULTATION - INITIAL EVALUATION Patient admitted from SNF to ER for decreased oral intake, nausea. HX of S/P EC fistula repair with Ileostomy. LABS: WBC10.99 HGB10.25 HCT30.[id number] - Normal Dr. Vences on case for SX eval.- no further intervention required at this time. Wound Care Consulted for evaluation and recommendation of multiple wounds. PATIENT VISIT& IMPRESSION: - Patient calm and cooperative. Excellent historian. - Mid abdominal wound- surgical dehiscence full thickness with areas of smooth muscle exposure. - When dressing removed, gastric content noted over dressing. Unable to determine of its coming from abdominal wound vs from failed ostomy appliance - Wound Cleansed and monitored while awaiting for supplies. Noted approx 5cc accumulation of yellow fluid at deepest area of wound. Color consistent with yellowing in Ileostomy contents. - RUQ Ileostomy - periwound presents with excoriation/erosion. Edges irregular presenting a challenge for adhesion. Patient unable to tolerate Coloplast skin prep/ benzoin tincture. Complains of sharp pain also when stoma powder used. - Appliance applied using crusting technique but tolerated poorly. Will attempt different technique if appliance fails with Renasys adhesive gel patch. - Sacral - Stage I - Pressure Ulcer. - Non Blanchable Redness. - Ritchie Score 14 - Moderate PUP Active - Alternating Pressure Air Mattress in place and set to patient current weight - Patient able to turn self with minimal assistance. RECOMMENDATION: 1. Sacral - Stage 1 - Pressure Ulcer - Cleanse site with NS and 4x4 Gauze - Apply Venelex and Cover with Allevyn Foam Sacrum Dressing Daily. 2. Mid Abdomen - Surgical Incision with Dehiscence - Full Thickness. - Cleanse wound with NS and 4x4 Gauze - Apply Puracol Ag+ and Maxsorb Ag+ and Cover with ABD Pad and secure with Hypafix Tape. 3. Ileostomy Site- Maintenance - Cleanse with Mild Soap and Water then Rinse with Normal Saline then Pat Dry Thoroughly with 4x4 Gauze - Once Dry, Apply Renasys Adhesive Gel Patch (cut to fit) then Cut Appliance to fit and adhere. - Once Surrounding Skin Heals revert back to using skin prep to periwound and use ostomy paste to fill creases for a flat surface then apply ostomy appliance. 3. Continue Alternating Pressure Air Mattress 4. Encourage Turning and Repositioning every 2 hours. 5. Keep Head Of Bed at 30 degrees or less as tolerated. Thank you for consulting with Wound Care. Addendum: 06/16/18 at 1453 by Kodi Oorsco RN Amended: Links added.
[2018-06-16] MEDS ORDERED: MAGNESIUM SULFATE 2GM/50ML 50 ML IV ONE ×2 (15:30→15:45)
[2018-06-16] MEDS ORDERED: POTASSIUM CHLORIDE 20MEQ/100ML 200 ML IV ONE (15:30)
[2018-06-16] MEDS: ENOXAPARIN SOD INJ 40 MG/0.4 ML SYR SC SCH (16:51)
--- NOTE | 2018-06-16 18:56 | NUR ---
Ileostomy and abdominal wound continue to leak. Dressing and ileostomy bag changed for 4th time today.
[2018-06-16] MEDS: CITRIC ACID/SODIUM CITRATE 30 ML UDC PO SCH ×2 (21:00→21:24)
[2018-06-16] MEDS: ATORVASTATIN 40 MG TAB PO SCH (21:24)
[2018-06-16] MEDS: MIRTAZAPINE 15 MG TAB PO SCH (21:24)
[2018-06-16] MEDS: ONDANSETRON HCL INJ 2MG/ML 2ML 2 MG/ML VIAL IV PRN (22:03)
--- NOTE | 2018-06-16 23:04 | Progress Note ---
DATE: 06/16/2018 Medicine Progress Note SUBJECTIVE: The patient is doing much better today with no other issues. She is eating her food more like 70% of her meals, daily. Working with PT. Working with case management for nursing home facility. PHYSICAL EXAMINATION: VITAL SIGNS: Temperature is 96.6, pulse , respiratory rate is 18, blood pressure 151/61, and pulse ox 100% on room air. GENERAL: In no acute distress, alert and oriented x3. Cooperative on examination. HEENT: Head is normocephalic and atraumatic. Eyes, pupils are equal, round, and reactive to light bilaterally. Extraocular movements are intact bilaterally. Throat, no evidence of any erythema or exudates in the posterior pharynx. Has poor dentition. NECK: Supple. Good range of motion. PULMONARY: Clear to auscultation bilaterally. No wheezing. No rales. No rhonchi. No crackles appreciated. CARDIOVASCULAR: Positive S1, S2. No murmurs, rubs, or gallops appreciated. ABDOMEN: Soft, nondistended, nontender to palpation. Bowel sounds present. MUSCULOSKELETAL: Strength is 5/5 throughout. No evidence of any muscle deficits on examination. NEUROLOGIC: Cranial nerves II through XII grossly intact. No evidence of any neurological deficits on exam SKIN: Intact, warm to touch. Good cap refill. PSYCHIATRIC: Normal affect and mood. EXTREMITIES: No edema. Good range of motion throughout. LAB FINDINGS: White count 10.9, hemoglobin 10.3, hematocrit 31, and platelets of 436. Chemistries none. MICROBIOLOGY: Blood cultures negative. Urine culture shows Citrobacter and VRE, being managed by ID. IMAGING: None. IMPRESSION: 1. Abdominal pain with associated nausea, vomiting, and dehydration, now improving. 2. Recent status post enterocutaneous fistula repair with right-sided ostomy with small incisional surgical dehiscence of the anterior abdominal wall. 3. Acute kidney injury. 4. Metabolic acidosis secondary to renal failure, now improved. 5. Hypertension. 6. Leukocytosis secondary to stress induced versus infection, but improving. 7. Moderate protein-calorie malnutrition. PLAN: At this time, continue with IV fluid hydration. Her creatinine improved tremendously. Electrolytes were replaced and Nephrology is managing accordingly. She is on IV antibiotics per ID as well as for urine cultures showing VRE. Continue same plan of care. Get a.m. labs. Plan is to discharge to nursing home facility. MD HOLGER Ramirez/MODL /[id number]
[2018-06-17] VITALS (8 sets, daily range): BP systolic 111–157; BP diastolic 53–87
[2018-06-17] MEDS: LINEZOLID 600 MG/D5W 300ML 300 ML IV SCH ×3 (00:19→23:47)
--- NOTE | 2018-06-17 02:30 | NUR ---
Ileostomy leaking and abdominal dressing soiled. complete dressing change and ileostomy change x2.
[2018-06-17] MEDS: ONDANSETRON HCL INJ 2MG/ML 2ML 2 MG/ML VIAL IV PRN (04:04)
[2018-06-17] MEDS: MORPHINE SULFATE INJ 4 MG/ML INJ 1ML IV PRN ×3 (04:04→20:34)
[2018-06-17 05:49] LABS: BASOPHILS % 0.5 % (0.0-1.0); EOSINOPHILS # (AUTO) 0.1 (0.0-0.4); EOSINOPHILS % 1.3 % (0.0-6.0); HEMATOCRIT 26.9 % (34.2-44.1); LYMPHOCYTES # (AUTO) 1.7 (1.0-3.2); LYMPHOCYTES % 22.3 % (18.0-39.1); MEAN CORPUSCULAR HEMOGLOBIN 29.2 pg (28-32); MEAN CORPUSCULAR HGB CONC 33.5 g/dL (31-35); MEAN CORPUSCULAR VOLUME 87.3 fL (81-99); MONOCYTES # (AUTO) 0.7 (0.2-0.8); MONOCYTES % 8.6 % (4.4-11.3); NEUTROPHILS # (AUTO) 5.1 (2.1-6.9); NEUTROPHILS % 66.5 % (38.7-80.0); PLATELET COUNT 328 x10e3/uL (140-360); RED BLOOD COUNT 3.08 x10e6/uL (3.6-5.1); RED CELL DISTRIBUTION WIDTH 16.7 % (11.7-14.4)
[2018-06-17 06:02] LABS: ANION GAP 10.5 mmol/L (8-16); CALCIUM 8.8 mg/dL (8.4-10.2); CREATININE, SERUM 1.17 mg/dL (0.57-1.11); POTASSIUM 4.5 mmol/L (3.5-5.1)
[2018-06-17] MEDS: INSULIN LISPRO 100 UNIT/1 ML 3ML VIAL SQ SCH ×4 (07:30→20:22)
[2018-06-17] MEDS: BALSAM PERU/CASTOR OIL 60 GM OINT...G. TP SCH (09:00)
[2018-06-17] MEDS ORDERED: CHOLECALCIFEROL 1,000 UNIT TAB PO SCH (09:00)
[2018-06-17] MEDS: CITRIC ACID/SODIUM CITRATE 30 ML UDC PO SCH ×3 (09:00→20:05)
[2018-06-17] MEDS: CHOLECALCIFEROL 1,000 UNIT TAB PO SCH (09:00)
[2018-06-17] MEDS: ASPIRIN 81 MG CHEW TAB PO SCH (09:45)
[2018-06-17] MEDS: METOPROLOL TARTRATE 50 MG TAB PO SCH ×2 (09:45→16:20)
[2018-06-17] MEDS: SODIUM BICARBONATE 650 MG TAB PO SCH ×3 (09:45→20:33)
[2018-06-17] MEDS: NIFEDIPINE CR 30 MG TAB PO SCH ×2 (09:45→16:15)
[2018-06-17] MEDS: PANTOPRAZOLE SOD 40 MG TABEC PO SCH (09:45)
--- NOTE | 2018-06-17 10:24 | NUR ---
Ileostomy continues to leak as well as midline abdominal wound. Ileostomy bag changed and midline dressing.
[2018-06-17] MEDS: SODIUM CHLORIDE 0.9% 1000ML 1,000 ML IV SCH ×2 (11:25→23:47)
--- NOTE | 2018-06-17 12:40 | NUR ---
Patient refused therapy today; saying that her bag is leaking too much. Will attempt again tomorrow. Nimco Barroso, CASE MAKER/Supervising PT Li Burnham Addendum: 06/17/18 at 1241 by Nimco Barroso PTA Amended: Links added.
--- NOTE | 2018-06-17 13:11 | NUR ---
FAXED CLINICALS TO [facility] [phone] RTF COMPLETED AND PUT ON PACKET AT [facility] STATION.
[2018-06-17] MEDS: CEFEPIME 1GM/NS 0.9% 50 ML 50 ML IV SCH ×2 (13:18→21:20)
[2018-06-17] MEDS: ENOXAPARIN SOD INJ 40 MG/0.4 ML SYR SC SCH (15:57)
--- NOTE | 2018-06-17 18:00 | NUR ---
Ileostomy changed due to leakage
--- NOTE | 2018-06-17 19:25 | NUR ---
RECEIVED PATIENT. PATIENT IS AAOX3. RESP EVEN AND UNLABORED. NO ACUTE DISTRESS NOTED. RUQ ILEOSTOMY NOTED, MID ABDOMINAL DRESSING NOTED, DRY AND INTACT. IV FLUID INFUSING. CALL LIGHT WITHIN REACH. INSTRUCT TO CALL FOR ASSISTANCE. BED LOW/LOCKED. CONTINUE TO MONITOR CLOSELY
--- NOTE | 2018-06-17 20:02 | Progress Note ---
DATE: 06/17/2018 Medicine Followup Progress Note SUBJECTIVE: The patient is doing well, tolerating diet well with no complaints. Still awaiting alf facility placement. OBJECTIVE: VITAL SIGNS: Temperature is 96.8, pulse 68, respiratory rate is 18, blood pressure 139/59, and pulse ox is 97% on room air. GENERAL: Not in acute distress. Alert and oriented x3. Cooperative on examination. HEENT: Head is normocephalic and atraumatic. Eyes; pupils are equal, round, and reactive to light bilaterally. Extraocular movements are intact bilaterally. Throat, no evidence of erythema or exudates in the posterior pharynx. Has poor dentition. NECK: Supple. Good range of motion. PULMONARY: Clear to auscultation bilaterally. No wheezing, no rales, no rhonchi, no crackles appreciated. CARDIOVASCULAR: Positive S1, S2. No murmurs, rubs, or gallops appreciated. ABDOMEN: Soft, nondistended, and nontender to palpation. Bowel sounds present. MUSCULOSKELETAL: Strength is 5/5 throughout. No evidence of any muscle deficits on examination. No weakness appreciated. NEUROLOGICAL: Cranial nerves II through XII grossly intact. No evidence of any neurological deficits on exam. SKIN: Intact. Warm to touch. Good cap refill. PSYCHIATRIC: Normal affect and mood. EXTREMITIES: No edema. Good range of motion throughout. LAB FINDINGS: Show CBC reviewed and stable. Chemistry reviewed and stable. IMPRESSION: 1. Abdominal pain with associated nausea, vomiting, and dehydration, improved. 2. Status post enterocutaneous fistula repair and right-sided ostomies with small incisional surgical wound dehiscence on the anterior abdominal wall. 3. Acute kidney injury. 4. Metabolic acidosis secondary to renal failure, resolved. 5. Hypertension. 6. Leukocytosis, likely stress induced and infection, all resolved. 7. Moderate protein-calorie malnutrition. PLAN: Continue with IV fluids for now. Monitor electrolytes. Get a.m. labs. Nephrology is monitoring closely. Continue the rest of the antibiotics. The patient will be discharged on Zyvox as per ID recommendations. Our plan is to discharge to alf facility. Awaiting on Case Management. MD HOLGER Ramirez/GABI Us: 06/17/2018 17:20:00 /[id number]
[2018-06-17] MEDS: ATORVASTATIN 40 MG TAB PO SCH (20:33)
[2018-06-17] MEDS: MIRTAZAPINE 15 MG TAB PO SCH (20:33)
[2018-06-18] VITALS (9 sets, daily range): BP systolic 124–169; BP diastolic 60–75
[2018-06-18] MEDS: MORPHINE SULFATE INJ 4 MG/ML INJ 1ML IV PRN ×4 (01:02→20:34)
[2018-06-18] MEDS: ONDANSETRON HCL 4 MG ORAL DISINTEGRATING TAB PO PRN ×3 (06:03→20:34)
[2018-06-18] MEDS: INSULIN LISPRO 100 UNIT/1 ML 3ML VIAL SQ SCH ×4 (07:30→21:00)
[2018-06-18] MEDS: CITRIC ACID/SODIUM CITRATE 30 ML UDC PO SCH ×3 (09:00→20:34)
[2018-06-18] MEDS: METOPROLOL TARTRATE 50 MG TAB PO SCH ×2 (09:00→18:33)
[2018-06-18] MEDS: ASPIRIN 81 MG CHEW TAB PO SCH (09:58)
[2018-06-18] MEDS: PANTOPRAZOLE SOD 40 MG TABEC PO SCH (09:59)
[2018-06-18] MEDS: NIFEDIPINE CR 30 MG TAB PO SCH ×2 (09:59→18:33)
[2018-06-18] MEDS: CHOLECALCIFEROL 1,000 UNIT TAB PO SCH (09:59)
[2018-06-18] MEDS: SODIUM BICARBONATE 650 MG TAB PO SCH ×3 (09:59→20:35)
--- NOTE | 2018-06-18 10:55 | NUR ---
IMM letter delivered and explained to pt. She verbalized understanding. Signed copy placed in chart. Copy to pt.
[2018-06-18] MEDS: CEFEPIME 1GM/NS 0.9% 50 ML 50 ML IV SCH ×2 (10:59→22:26)
--- NOTE | 2018-06-18 11:34 | NUR ---
Wound care provided to abdominal wound, purulent large amount of drainage noted, cleansed area with NS, applied maxob and tape, will monitor.
[2018-06-18] MEDS: LINEZOLID 600 MG/D5W 300ML 300 ML IV SCH (12:20)
--- NOTE | 2018-06-18 12:21 | NUR ---
Wound care requesting wound dressing change be done and to apply just ABD to see if drainage is reaction of silver on Maxorb and will evaluate tomorrow.
--- NOTE | 2018-06-18 13:32 | Progress Note ---
DATE: 06/18/2018 Medicine Progress Note SUBJECTIVE: The patient is doing well today with no complaints. She is sitting in a chair with no other issues. She is now complaining about going home. OBJECTIVE: VITAL SIGNS: Temperature 97.6, pulse 74, respiratory rate is 18, blood pressure 150/63, and pulse ox 97% on room air. GENERAL: Not in acute distress. Alert and oriented x3. Cooperative on examination. HEENT: Head is normocephalic and atraumatic. Eyes; pupils are equal, round, and reactive to light bilaterally. Extraocular movements are intact bilaterally. Throat, no evidence of erythema or exudates in the posterior pharynx. Has poor dentition. NECK: Supple. Good range of motion. PULMONARY: Clear to auscultation bilaterally. No wheezing, no rales, no rhonchi, no crackles appreciated. CARDIOVASCULAR: Positive S1, S2. No murmurs, rubs, or gallops appreciated. ABDOMEN: Soft, nondistended, and nontender to palpation. Bowel sounds present. MUSCULOSKELETAL: Strength is 5/5 throughout. No evidence of any muscle deficits on examination. No weakness appreciated. NEUROLOGICAL: Cranial nerves II through XII grossly intact. No evidence of any neurological deficits on exam. SKIN: Intact. Warm to touch. Good cap refill. PSYCHIATRIC: Normal affect and mood. EXTREMITIES: No edema. Good range of motion throughout. LAB FINDINGS: CBC, reviewed and stable. Chemistry, none today. IMPRESSION: 1. Abdominal pain with associated nausea, vomiting, and dehydration, all resolved. 2. Status post enterocutaneous fistula repair with right-sided ostomy with small incisional surgical wounds on the anterior abdominal wall. 3. Acute kidney injury. 4. Metabolic acidosis secondary to renal failure, resolved. 5. Hypertension. 6. Leukocytosis, likely stress induced and infection, all resolved. 7. Moderate protein-calorie malnutrition. PLAN: Continue with IV fluids for now. Monitor electrolytes with a.m. labs. Nephrology is consulted as well. The patient will be discharged at some point with oral Zyvox as per ID recommendations. The patient now is contemplating about going home versus assisted facility. Discussed with Case Management. A.m. labs. MD HOLGER Ramirez/GABI Us: 06/18/2018 12:17:58 /[id number]
--- NOTE | 2018-06-18 14:02 | NUR ---
Nutrition Intervention Note RD Recommendation(s) for Physician: -Continue regular diet as ordered -Pt is not interested in oral nutrition supplements -Current diet is appropriate and adequate with 50-75% reported meal intake The patient meets criteria for MODERATE protein-calorie malnutrition. Plan of Care: RD following, monitoring for tolerance and adequacy Nutrition reason for involvement: LOS RD Assessment (06/18) Chart reviewed. Labs and meds reviewed. 67yo F, who was admitted from senior living for nausea, vomiting, and abdominal pain. Visited pt in the room. Pt reported improvement in her appetite. PO >50%, per pt. No complains of nausea or vomiting at this time. Pt denied any chewing or swallowing difficulty. However, pt reported ~20-25lbs weight loss within the last 10 months due to being in and out of the hospital. No sign of muscle or fat loss based on NFPA. Pt is not interested in any ONS at this time. RD explained menu and obtained preferences from pt. Will continue to monitor and follow. Principal Problems/Diagnoses: Status post enterocutaneous fistula repair with right-sided ostomy with small incisional surgical wounds on the anterior abdominal wall. PMH: moderate protein-calorie malnutrition, failure to thrive, and generalized weakness with debilitation GI: abdomen soft, flat, non-tender, flatus present Skin: no pressure wound noted Labs: reviewed Meds: Zofran, abx, sodium bicarb, vitamin D3, Ht: 58in Wt: 123lb BMI: 25.7kg/m2 IBW: 90lb Malnutrition Evaluation (06/18/2018) The patient meets criteria for MODERATE protein-calorie malnutrition. Energy intake: <75% of estimated energy requirements for >3 months Weight loss: >20% in 1 year (Chronic) Fat loss: None Muscle loss: None Supporting Evidence: Fluid accumulation: N/A Functional Status: no changes Nutrition Prescription (Diet Order): regular diet Estimated Nutritional Needs: Calories: 1375 1650kcal (25-30kcal/kg/d) Weight used: actual BW Protein : 55 83g (1-1.5g/kg/d) Weight used: actual BW Diet Adequacy: Meeting calorie needs, Meeting protein needs Diet Education Needs Assessment: Diet education not indicated; patient on regular diet. Nutrition Care Level: MOD Nutrition Diagnosis: Moderate malnutrition related to inadequate oral intake as evidenced by weight loss and <75% est calorie intake for over 10 months. Goal: Patient will meet 75-100% of estimated needs by follow up Progress: Progressing Interventions: Regular diet Monitoring/Evaluation: Total energy intake, Total protein intake, diet, Liquid supplement, Weight change Signed: Janice Alex MS, RD, LD
--- NOTE | 2018-06-18 15:57 | NUR ---
Faxed therapy notes to [facility] at [phone]
[2018-06-18] MEDS: BALSAM PERU/CASTOR OIL 60 GM OINT...G. TP SCH (16:39)
--- NOTE | 2018-06-18 16:39 | NUR ---
Wound care to abdomen completed and ABD with tape applied
[2018-06-18] MEDS: ENOXAPARIN SOD INJ 40 MG/0.4 ML SYR SC SCH (17:00)
[2018-06-18] MEDS: SODIUM CHLORIDE 0.9% 1000ML 1,000 ML IV SCH (18:32)
--- NOTE | 2018-06-18 18:36 | NUR ---
Patient refused Lovenox
[2018-06-18] MEDS: MIRTAZAPINE 15 MG TAB PO SCH (20:35)
[2018-06-18] MEDS: ATORVASTATIN 40 MG TAB PO SCH (20:35)
[2018-06-19] MEDS: LINEZOLID 600 MG/D5W 300ML 300 ML IV SCH ×2 (00:39→12:08)
[2018-06-19] MEDS: MORPHINE SULFATE INJ 4 MG/ML INJ 1ML IV PRN ×3 (01:39→10:30)
[2018-06-19] MEDS: SODIUM CHLORIDE 0.9% 1000ML 1,000 ML IV SCH (03:25)
[2018-06-19 05:32] LABS: BASOPHILS # (AUTO) 0.1 (0.0-0.1); BASOPHILS % 0.7 % (0.0-1.0); EOSINOPHILS # (AUTO) 0.2 (0.0-0.4); EOSINOPHILS % 2.7 % (0.0-6.0); HEMATOCRIT 27.8 % (34.2-44.1); HEMOGLOBIN 9.2 g/dL (12.0-16.0); LYMPHOCYTES # (AUTO) 1.8 (1.0-3.2); MEAN CORPUSCULAR HEMOGLOBIN 29.3 pg (28-32); MEAN CORPUSCULAR HGB CONC 33.1 g/dL (31-35); MEAN CORPUSCULAR VOLUME 88.5 fL (81-99); MONOCYTES # (AUTO) 0.6 (0.2-0.8); MONOCYTES % 7.5 % (4.4-11.3); NEUTROPHILS # (AUTO) 5.4 (2.1-6.9); NEUTROPHILS % 66.7 % (38.7-80.0); PLATELET COUNT 278 x10e3/uL (140-360); RED BLOOD COUNT 3.14 x10e6/uL (3.6-5.1)
[2018-06-19 05:51] VITALS: BP 122/58
[2018-06-19 05:57] LABS: ALBUMIN 1.9 g/dL (3.5-5.0); ALBUMIN/GLOBULIN RATIO 0.5 (0.8-2.0); ANION GAP 12.4 mmol/L (8-16); CALCIUM 8.8 mg/dL (8.4-10.2); CREATININE, SERUM 1.15 mg/dL (0.57-1.11); POTASSIUM 4.4 mmol/L (3.5-5.1)
[2018-06-19] MEDS: INSULIN LISPRO 100 UNIT/1 ML 3ML VIAL SQ SCH ×3 (07:30→17:03)
--- NOTE | 2018-06-19 08:51 | NUR ---
FAXED UPDATES TO [facility].
[2018-06-19] MEDS: CITRIC ACID/SODIUM CITRATE 30 ML UDC PO SCH ×2 (09:00→15:00)
[2018-06-19 09:15] VITALS: BP 155/67
[2018-06-19] MEDS: ASPIRIN 81 MG CHEW TAB PO SCH (09:48)
[2018-06-19] MEDS: METOPROLOL TARTRATE 50 MG TAB PO SCH ×2 (09:48→16:56)
[2018-06-19] MEDS: BALSAM PERU/CASTOR OIL 60 GM OINT...G. TP SCH (09:49)
[2018-06-19] MEDS: PANTOPRAZOLE SOD 40 MG TABEC PO SCH (09:49)
[2018-06-19] MEDS: NIFEDIPINE CR 30 MG TAB PO SCH ×2 (09:49→16:56)
[2018-06-19] MEDS: SODIUM BICARBONATE 650 MG TAB PO SCH ×2 (09:49→15:00)
[2018-06-19] MEDS: CHOLECALCIFEROL 1,000 UNIT TAB PO SCH (09:49)
--- NOTE | 2018-06-19 09:50 | NUR ---
Patient alert and responsive, VSS and appetite fair, no N/V wound care completed this morning, cleansed with NS as ordered, applied new dressing. Colostomy care done, changed bag and new one applied, surround skin denuded, applied skin protectant. Call light within reach and will monitor, medicated for pain
[2018-06-19 10:39] VITALS: BP 155/67
[2018-06-19] MEDS: CEFEPIME 1GM/NS 0.9% 50 ML 50 ML IV SCH (10:45)
[2018-06-19 12:43] VITALS: BP 137/64
--- NOTE | 2018-06-19 16:44 | NUR ---
Rounds by attending and patient discharged to [facility] as room available. Called [facility] to give report at this time and they stated nurse if busy and they will call back. Call back number provided.
[2018-06-19 16:45] VITALS: BP 143/63
[2018-06-19] MEDS: ENOXAPARIN SOD INJ 40 MG/0.4 ML SYR SC SCH (16:56)
--- NOTE | 2018-06-20 16:24 | Discharge Summary ---
FINAL DISCHARGE DIAGNOSES: 1. Abdominal pain with associated nausea, vomiting, and dehydration, all resolved. 2. Status post enterocutaneous fistula repair with right-sided ostomy with small incisional surgical wounds on the anterior abdominal wall that was performed on a different hospital stay. 3. Acute kidney injury. 4. Metabolic acidosis secondary to renal failure, resolved. 5. Hypertension. 6. Leukocytosis, likely due to stress induced as well as possible infection, doing well, all resolved. 7. Moderate protein-calorie malnutrition. CONSULTANTS: We had Infectious Disease, Nephrology, General Surgery. PHYSICAL EXAMINATION: VITAL SIGNS: Temperature is 96.7, pulse 64, respiratory rate 18, blood pressure 137/64, and pulse oximetry 98% on room air. LABORATORY FINDINGS: Show white count 8, hemoglobin 9.2, hematocrit is 27, and platelets of 278. Coagulation; PT 15, INR 1.2, and PTT 33. Chemistry; sodium 130, potassium 4.4, chloride 102, bicarb 20, anion gap of 12, BUN 19, creatinine 1.15, glucose is 109, albumin is 1.9, lipase is 28. CK was 19. Urinalysis concerning for UTI. Urine culture shows Citrobacter . Blood cultures, no growth to date, greater than five days. IMAGING STUDIES: Chest x-ray is negative. CT abdomen and pelvis shows postoperative changes involving the periumbilical, infraumbilical, anterior abdominal wall with what appears an open wound inflammatory changes, however, no drainable fluid collection seen. The right lower quadrant ostomy is grossly intact. Renal ultrasounds shows right kidney 11.3 cm and left kidney 11.4. 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 Recently presented from a senior care facility with underlying nausea, vomiting, and dehydration. The patient was admitted with several consultants to evaluate the patient. In relation to abdominal pain, nausea, vomiting, and dehydration, she was on IV fluids, which resolved. She was on pain control and antinausea medication. In relation to enteric cutaneous fistula, I had General Surgery come back, re-evaluate her, reports that the wound looks good. There are no other complaints at this time or any other issues that need to be addressed. She will need to have aggressive right-sided ostomy treatment and careful, which she gets discharged. She did have underlying acute kidney injury secondary to dehydration and required Nephrology consultation. It did resolve prior to discharge home on IV fluids. The patient also had underlying leukocytosis on admission that was presumed to be likely stressed injury versus infection and which ID was consulted. The patient did have a urine culture that was positive for VRE, requiring ID consultation. The patient was on IV antibiotics while here in the hospital stay. Per Infectious Disease, the patient can go on oral Zyvox 600 mg p.o. q.12 hours x14 days as per ID recommendation. The patient also has moderate protein-calorie malnutrition, which I have discussed this with her currently about eating more including supplemental shakes. On discharge, the patient was doing well and tolerating diet well with no other issues. On the day of discharge, the vital signs are stable, labs reviewed and stable. The patient was seen, evaluated, examined thoroughly on the day of discharge. No other complaints. The patient verbalized understanding and agreed with plan of care to follow up as an outpatient with the primary care physician in 1 week and the consultants as described above in 2 weeks' time. MEDICATIONS: See med reconciliation form. DISPOSITION: [facility] facility. CONDITION: Stable. DIET: Heart healthy, regular. The patient was cleared for discharge by all consultants. Discharged to senior care facility. In the event of any worsening symptoms, the patient was advised to come back to the ED for further evaluation. Discharge summary took greater than 35 minutes. MD HOLGER Ramirez/GABI /[id number]
[2018-06-23] MEDS ORDERED: CLONIDINE HCL 0.3MG/24 HR PATCH TD SCH (09:00)
== END 2018-06-19 18:00 | disposition home or self-care (01) | DRG 683 ==
LOC: ER 15:13 → ERHOLD 19:13 → MED/SURG2 20:54
PROVIDERS: ADMIT Internal Medicine; ATTEND Internal Medicine
DX: N17.0 Acute kidney failure with tubular necrosis (principal); E44.0 Moderate protein-calorie malnutrition; E87.2 Acidosis; N39.0 Urinary tract infection, site not specified; T81.43XA Infection following a procedure, organ and space surgical site, initial encounter; K68.11 Postprocedural retroperitoneal abscess; Z68.25 Body mass index [BMI] 25.0-25.9, adult; E86.0 Dehydration; K94.10 Enterostomy complication, unspecified; I10 Essential (primary) hypertension; D72.829 Elevated white blood cell count, unspecified; Z16.22 Resistance to vancomycin related antibiotics; B99.8 Other infectious disease; N18.3 Chronic kidney disease, stage 3 (moderate); I12.9 Hypertensive chronic kidney disease with stage 1 through stage 4 chronic kidney disease, or unspecified chronic kidney disease
CPT/HCPCS: 36415; 71045; 74176; 76770; 80048; 80053; 81001; 82550; 82553; 82570; 82948; 83605; 83690; 83735; 84300; 84484; 85025; 85610; 85730; 87040; 87086; 87186; 93005; 96361; 96367; 96376; 97139; 99284; J0610; J0692; J0696; J1650; J2020; J2270; J2405; J2543; J3475; J3480; J7030; J7040

== ENCOUNTER 2018-10-20 13:07 | Inpatient (IN) | payer OTHER ==
[~2018-10-20] VITALS: Ht 149.9 cm; Wt 49.6 kg
[~2018-10-20 13:07] MED LIST changes: +ASPIR 8181 MG PO; +ATORVASTATIN CA40 MG PO; +CATAPRES-TTS 31 EA TD; +LASIX20 MG PO; +MELATONIN3 MG PO; +METOPROLOL TART50 MG PO; +MIRTAZAPINE15 MG PO; +NIFEDIPINE ER30 M1 PO; +NORCO 10-325 T1 EACH PO; +VITAMIN D35000 UNIT PO; +ZOFRAN8 MG PO
--- OUTSIDE RECORDS SUMMARY | 2018-10-20 13:11 | XMS REPORT | Clinical Summary ---
Author Author [facility] Address Unknown Phone Unavailable Care Team Providers Care Mounting Inspector Name Role Phone Cody Cheng MD PCP Allergies Not on File Medications No known medications Active Problems No known active problems Encounters Care Team Description Date Type Specialty N/A 04/30/2018 Intake Access N/A 04/25/2018 Intake Access after 10/19/2017 Social History Date Tobacco Use Types Packs/Day [...] Last Done Comments BREAST CANCER SCREENING 09/01/1999 COLONOSCOPY SCREENING 09/01/1999 SHINGLES VACCINES (#1) 09/01/1999 65+ PNEUMOCOCCAL VACCINE 2014 (1 of 2 - PCV13) INFLUENZA VACCINE 09/11/2018 Results Not on fileafter 10/19/2017 Insurance Type Payer Benefit Subscriber ID Effective Phone Address Plan / Dates Group HMO [employer] TEX[employer] xxxxxxxxx 2017- MCR Present Medicaid MEDICAID MEDICAID xxxxxxxxx [id number] Advance Directives For more information, please contact: [phone] Patient Pond Supervisor Explanation Type Date Recorded Advance Directives, Living Will and Medical Power of Medical Reception
--- OUTSIDE RECORDS SUMMARY | 2018-10-20 13:11 | XMS REPORT | Clinical Summary ---
Author Author [facility] Address Unknown Phone Unavailable Care Team Providers Care Physical Optics Teacher Name Role Phone Cody Cheng PCP Jarrell Gaytan MD Unavailable Unavailable Arnulfo Pina MD 3 Allergies Not on File Medications End Date Status Medication Sig Dispensed Refills Start Date Active metoprolol (TOPROL-XL) Take 100 mg 0 100 MG 24 hr by mouth tabletIndications: ESRD daily. (end stage renal disease) ([facility]) Active pantoprazole (PROTONIX) Take 20 mg by 0 20 MG tabletIndications: mouth daily. ESRD (end stage renal disease) ([facility]) Active folic acid (FOLVITE) 1 MG Take 1 mg by 0 tabletIndications: ESRD mouth daily. (end stage renal disease) ([facility]) Active ondansetron (ZOFRAN) 8 MG Take by mouth 0 tabletIndications: ESRD every 8 (end stage renal disease) (eight) hours ([facility]) as needed for Nausea. Active sodium bicarbonate 650 MG Take 1 tablet 0 tabletIndications: ESRD by mouth 4 (end stage renal disease) (four) times ([facility]) daily. Active sertraline (ZOLOFT) 100 Take 100 mg 0 MG tabletIndications: by mouth ESRD (end stage renal daily. disease) ([facility]) Active ranitidine (ZANTAC) 150 Take 150 mg 0 MG capsuleIndications: by mouth 2 ESRD (end stage renal (two) times disease) ([facility]) daily. Active sevelamer (RENVELA) 800 Take 800 mg 0 mg tabletIndications: by mouth 3 ESRD (end stage renal (three) times disease) ([facility]) daily with meals. Active metoclopramide HCl Take 10 mg by 0 (REGLAN) 10 MG mouth 4 tabletIndications: ESRD (four) times (end stage renal disease) daily as ([facility]) needed for Nausea. Active amLODIPine (NORVASC) 10 Take 10 mg by 0 MG tabletIndications: mouth daily. ESRD (end stage renal disease) ([facility]) Active SUMAtriptan (IMITREX) 100 Take 100 mg 0 MG tabletIndications: by mouth once ESRD (end stage renal as needed for disease) ([facility]) Headaches. Active zolpidem (AMBIEN) 10 mg Take 10 mg by 0 tabletIndications: ESRD mouth every (end stage renal disease) night as ([facility]) needed for Insomnia. Active promethazine (PHENERGAN) Take 25 mg by 0 25 MG tabletIndications: mouth every 6 ESRD (end stage renal (six) hours disease) ([facility]) as needed for Nausea. Active insulin aspart (NOVOLOG) Inject 12 0 100 unit/mL Units InPnIndications: ESRD subcutaneousl (end stage renal disease) y 3 (three) ([facility]) times daily with meals. Active insulin detemir (LEVEMIR) Inject 30 0 100 unit/mL (3 mL) InPn Units injectionIndications: subcutaneousl ESRD (end stage renal y nightly. disease) ([facility]) Active vit B cmplex Take 1 tablet 0 7-EW-[id number]-biot-Zn ox by mouth 1-60-300-12.5 daily. xq-[id number]-mg TabIndications: ESRD (end stage renal disease) ([facility]) Active cholecalciferol, vitamin Take 1,000 0 D3, 1,000 unit Units by capsuleIndications: ESRD mouth daily. (end stage renal disease) ([facility]) Active LORazepam (ATIVAN) 0.5 MG Take 0.5 mg 0 tabletIndications: ESRD by mouth (end stage renal disease) every 6 (six) ([facility]) hours as needed for Anxiety. [...] INFLUENZA VACCINE 11/11/2017 Results Not on fileafter 10/19/2017 Insurance Payer Benefit Subscriber ID Type Phone Address Plan / Group [employer] xxxxxxxxx Maps HMO ALL Contracted MEDICAID MEDICAID xxxxxxxxx Medicaid OF [place]
--- OUTSIDE RECORDS SUMMARY | 2018-10-20 13:12 | XMS REPORT | Continuity of Care Document ---
Author Author [place] Organization [place] Address Unknown Phone Unavailable Care Team Providers [employer] Manager Name Role Phone [place] Unavailable Unavailable Problems Problem Status Onset Date Classification Date Reported Comments Source Persistent postprocedural fistula, initial encounter 03/22/2018 09/22/2018 [facility] ABD PAIN Active 02/25/2018 [facility] ABDOMINAL PAIN, ACUTE, ACUTE LOWER UTI, Active 02/25/2018 [facility] Other complications of enterostomy 01/21/2018 08/02/2018 [facility] N/V Active 01/21/2018 [facility] MAGI Active 01/21/2018 [facility] ABDOMINAL FISTULA LEAKING Active 12/31/2017 [facility] R10.10 - "UPPER ABDOMINAL PAIN, UNSPECIF Active 03/17/2015 [facility] [place] Unspecified abdominal pain 08/02/2018 [facility] Hypo-osmolality and hyponatremia 09/02/2018 [facility] Acidosis 09/22/2018 [facility] Fistula of intestine 09/22/2018 [facility] Acute kidney failure, unspecified 09/22/2018 [facility] Disruption of external operation wound, not elsewhere classified, initial encounter 08/02/2018 [facility] Chronic kidney disease, stage 4 08/02/2018 [facility] Iron deficiency anemia secondary to blood loss 08/02/2018 [facility] Type 2 diabetes mellitus with diabetic chronic kidney disease 09/22/2018 [facility] Hyperlipidemia, unspecified 09/22/2018 [facility] Other disorders of phosphorus metabolism 08/02/2018 [facility] Volume depletion, unspecified 08/02/2018 [facility] Hyperkalemia 09/02/2018 [facility] Unspecified osteoarthritis, unspecified site 09/22/2018 [facility] Cyst of kidney, acquired 09/22/2018 [facility] Acquired absence of other specified parts of digestive tract 09/22/2018 [facility] Retention of urine, unspecified 08/02/2018 [facility] Hypertensive chronic kidney disease with stage 1 through stage 4 chronic kidney disease, or unspecified chronic kidney disease 09/22/2018 [facility] Toxic encephalopathy 09/02/2018 [facility] Ulcer of esophagus without bleeding 09/02/2018 [facility] Chronic kidney disease, stage 3 09/02/2018 [facility] Diaphragmatic hernia without obstruction or gangrene 09/02/2018 [facility] Gastritis, unspecified, without bleeding 09/02/2018 [facility] Anemia in other chronic diseases classified elsewhere 09/02/2018 [facility] detention use of insulin 09/02/2018 [facility] Ileostomy status 09/02/2018 [facility] Personal history of nicotine dependence 09/22/2018 [facility] Dehydration 09/22/2018 [facility] Hypomagnesemia 09/22/2018 [facility] Adverse effect of unspecified nonopioid analgesic, antipyretic and antirheumatic, initial encounter 09/02/2018 [facility] Gastro-esophageal reflux disease with esophagitis 09/02/2018 [facility] Hypokalemia 09/22/2018 [facility] Other malaise 09/22/2018 [facility] Nausea with vomiting, unspecified 09/02/2018 [facility] Type 2 diabetes mellitus with hypoglycemia without coma 09/02/2018 [facility] Fever, unspecified 09/02/2018 [facility] Pain in right forearm 09/02/2018 [facility] Unspecified right bundle-branch block 09/02/2018 [facility] Epigastric pain 09/02/2018 [facility] Surgical operation with formation of external stoma as the cause of abnormal reaction of the patient, or of later complication, without mention of misadventure at the time of the procedure 09/02/2018 [facility] Urinary tract infection, site not specified 09/22/2018 [facility] Chronic kidney disease, stage 3 (moderate) 09/22/2018 [facility] Tremor, unspecified 09/22/2018 [facility] Hypocalcemia 09/22/2018 [facility] Pressure ulcer of sacral region, unstageable 09/22/2018 [facility] Anemia in chronic kidney disease 09/22/2018 [facility] Other specified disorders of the skin and subcutaneous tissue 09/22/2018 [facility] Colostomy status 09/22/2018 [facility] Bed confinement status 09/22/2018 [facility] UNSPECIFIED ABDOMINAL PAIN Active [facility] FISTULA OF STOMACH AND DUODENUM Active [facility] ACUTE KIDNEY FAILURE, UNSPECIFIED Active [facility] URINARY TRACT INFECTION, SITE NOT SPECIF Active [facility] Medications Medication Details Route Status Patient Instructions Ordering Provider Order Date Source Octreotide 0.1 MG/ML Injectable Solution [Sandostatin] 100 microgram, SUB-Q, BID, X 30 day, # 60 vial, 0 Refill(s), other No Longer Active 03/05/2018 [facility] loperamide 2 mg oral capsule 2 mg=1 cap, PO, Q4H, PRN loose stools, # 30 cap, 0 Refill(s), other Active 03/05/2018 [facility] potassium chloride 20 mEq oral tablet, extended release 40 mEq, 2 tab, Route: PO, Drug form: ERTAB, ONCE, Dosing Weight 53.4, kg, Start date: 03/05/18 17:41:00 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, Stop date: 03/05/18 17:41:00 CSTNotes: (Same as: K- Dur 20) "Do Not Crush" Give with food and full glass of water For patients unable to swallow tablet, dissolve in one half glass of water. Allow about 2 minutes for the tablets to disintegrate. Stir before giving to prepare slurry an d administer. Please exclude Patients with feeding tube less than 14 [place] (Dobhoff, J-tube etc) and pediatric and patients. Inactive 03/05/2018 [facility] Ondansetron 4 MG Disintegrating Tablet [Zofran] 4 mg=1 tab, PO, TID, Dissolve tab under tongue, # 20 tab, 0 Refill(s) Active 03/05/2018 [facility] enoxaparin 30 mg/0.3 mL subcutaneous solution 30 mg=0.3 mL, SUB-Q, [id number], 0 Refill(s) Active 03/05/2018 [facility] Acetaminophen 300 MG / Codeine Phosphate 30 MG Oral Tablet [Tylenol with Codeine #3] 1 tab, PO, Q6H, PRN Pain, # 25 tab, 0 Refill(s) Active 03/05/2018 [facility] Phenergan 25 mg oral tablet 25 mg=1 tab, PO, Q6H, PRN Nausea, # 30 tab, 0 Refill(s), other Active 03/05/2018 [facility] metoprolol extended release 25 mg, 1 tab, Route: PO, Drug form: ERTAB, Daily, Priority: NOW, Start date: 03/02/18 23:10:00 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, Duration: 30 day, Stop date: 04/01/18 9:00:00 CSTNotes: (Same as: Toprol XL) Do Not Crush No Longer Active 03/03/2018 [facility] Promethazine 25 mg, 1 mL, Route: IVPB, Q6H, Dosing Weight 53.4, kg, PRN Nausea & Vomiting, Start date: 03/02/18 7:41:00 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, Duration: 30 day, Stop date: 04/01/18 7:40:00 CSTNotes: Do not give IV push. (Same as: Phenergan) No Longer Active 03/02/2018 [facility] Magnesium Sulfate 2 gm, 50 mL, Route: IVPB, Drug form: INJ, ONCE, Dosing Weight 53.4, kg, Start date: 02/28/18 17:34:00 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, Stop date: 02/28/18 17:34:00 CSTNotes: WASTE: F/P - Sink; E - Municipal Trash Bin Inactive 02/28/2018 [facility] Tums 1,000 mg, 2 tab, Route: CHEW, Drug form: CHEWTAB, TID-Before Meals, Dosing Weight 53.4, kg, Start date: 02/28/18 16:30:00 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, Duration: 30 day, Stop date: 03/30/18 11:30:00 CSTNotes: (Same As: Tums) Calcium Carbonate 500 uo=748 mg elemental calcium Dose= mg calcium carbonate ( mg elemental calcium) No Longer Active 02/28/2018 [facility] Calcium Gluconate 1,000 mg, 10 mL, Route: IVPB, ONCE, Dosing Weight 53.4, kg, Start date: 02/28/18 13:54:00 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, Stop date: 02/28/18 13:54:00 CSTNotes: WASTE: F/P - Sink; E - [place] Trash Bin Inactive 02/28/2018 [facility] Magnesium Sulfate 2 gm, 50 mL, Route: IVPB, Drug form: INJ, ONCE, Dosing Weight 53.4, kg, Start date: 02/28/18 13:54:00 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, Stop date: 02/28/18 13:54:00 CSTNotes: WASTE: F/P - Sink; E - Municipal Trash Bin Inactive 02/28/2018 [facility] Magnesium Sulfate 2 gm, 50 mL, Route: IV, Drug form: INJ, ONCE, Dosing Weight 53.4, kg, Start date: 02/28/18 10:56:00 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, Stop date: 02/28/18 10:56:00 CSTNotes: WASTE: F/P - Sink; E - Municipal Trash Bin Inactive 02/28/2018 [facility] Dilaudid 1 mg, 1 mL, Route: IVP, Drug form: SOLN, ONCE, Dosing Weight 53.4, kg, Priority: STAT, Start date: 02/28/18 10:37:00 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, Stop date: 02/28/18 10:37:00 CSTNotes: (Same as: Dilaudid) Inactive 02/28/2018 [facility] Insulin Lispro 2 unit, 0.02 mL, Route: SUB-Q, Drug form: SOLN, Bedtime, Dosing Weight 53.4, kg, PRN Blood Glucose Results, Start date: 02/27/18 22:09:00 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, Duration: 30 day, Stop date: 03/29/18 22:08:00 CSTNotes: (Same as: Humalog ) Roll in palms of hands gently; Do not shake `vigorously. "Single Patient Use Only " WASTE: F/P - Black; E - Municipal Trash Bin Stable for 28 days at room temperature. Expires in days from Date No Longer Active 02/28/2018 [facility] Dextrose 50% Syringe 25 gm, 50 mL, Route: IVP, Drug Form: INJ, Dosing Weight 53.4, kg, PRN, PRN Blood Glucose Results, Start date: 02/27/18 22:09:00 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, Duration: 30 day, Stop date: 03/29/18 22:08:00 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 No Longer Active 02/28/2018 [facility] Glucagon 1 mg, Route: IM, Drug form: PDR/INJ, PRN, Dosing Weight 53.4, kg, PRN Blood Glucose Results, Start date: 02/27/18 22:09:00 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, Duration: 30 day, Stop date: 03/29/18 22:08:00 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 No Longer Active 02/28/2018 [facility] Tums 1,000 mg, 2 tab, Route: CHEW, Drug form: CHEWTAB, TID-Meals, Dosing Weight 53.4, kg, Start date: 02/27/18 17:00:00 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, Duration: 30 day, Stop date: 03/29/18 12:00:00 CSTNotes: (Same As: Tums) Calcium Carbonate 500 jw=942 mg elemental calcium Dose= mg calcium carbonate ( mg elemental calcium) No Longer Active 02/27/2018 [facility] Calcium Gluconate 2,000 mg, 20 mL, Route: IVPB, ONCE, Dosing Weight 53.4, kg, Start date: 02/27/18 10:59:00 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, Stop date: 02/27/18 10:59:00 CSTNotes: WASTE: F/P - Sink; E - Municipal Trash Bin Inactive 02/27/2018 [facility] Potassium Chloride 1.33 MEQ/ML Oral Solution 20 mEq, 1 tab, Route: PO, Drug form: ERTAB, ONCE, Dosing Weight 53.4, kg, Start date: 02/27/18 10:59:00 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, Stop date: 02/27/18 10:59:00 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 Inactive 02/27/2018 [facility] Zinc Oxide 0.2 MG/MG Topical Ointment Route: TOP, BID, Drug form: OINT, Start date: 02/27/18 9:00:00 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, Duration: 30 day, Stop date: 03/28/18 17:00:00 CSTNotes: Same as: Desitin No Longer Active 02/27/2018 [facility] Timothy packet 1 pkt, Route: PO, Drug Form: PWDR, Dosing Weight 53.4, kg, BID-Before Meals, Start date: 02/27/18 7:30:00 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, Duration: 28 day, Stop date: 03/26/18 16:30:00 CSTNotes: (Same as: Timothy [place]) No Longer Active 02/27/2018 [facility] cefepime 1 gm, Route: IVPB, [id number], Dosing Weight 62.727, kg, (CrCl >/=50 ml/min), Start date: 02/26/18 16:00:00 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, Duration: 7 day, Stop date: 03/04/18 16:00:00 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, ABX Indication: Urinary Tract InfectionNotes: (Same As: Maxipime) MEDICATION WASTE Product Size: 1000 mg Product Wasted: ___ mg No Longer Active 02/26/2018 [facility] Promethazine 25 mg, PO, Q6H, 0 Refill(s) No Longer Active 02/26/2018 [facility] Famotidine 40 mg, PO, Bedtime, # 60 tab, 0 Refill(s) Active 02/26/2018 [facility] pramipexole 0.125 mg oral tablet 0.125 mg=1 tab, PO, Daily, 0 Refill(s) Active 02/26/2018 [facility] sucralfate 1 g oral tablet 1 gm=1 tab, PO, QID-Before Meals, 0 Refill(s) Active 02/26/2018 [facility] Sodium Bicarbonate 10 grain, PO, BID, 0 Refill(s) Active 02/26/2018 [facility] atorvastatin 40 mg oral tablet 40 mg=1 tab, PO, Bedtime, # 90 tab, 1 Refill(s) Active 02/26/2018 [facility] Lovenox 30 mg, 0.3 mL, Route: SUB-Q, Drug form: INJ, [id number], Dosing Weight 62.727, kg, Start date: 02/25/18 20:00:00 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, Duration: 30 day, Stop date: 03/26/18 20:00:00 CSTNotes: (Same as: Lovenox) No Longer Active 02/26/2018 [facility] Calcium Gluconate 3,000 mg, 30 mL, Route: IVPB, ONCE, Dosing Weight 62.727, kg, Start date: 02/25/18 18:58:00 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, Stop date: 02/25/18 18:58:00 CSTNotes: WASTE: F/P - Sink; E - Municipal Trash Bin Inactive 02/26/2018 [facility] Hydromorphone 0.5 mg, Route: IVP, ONCE, Dosing Weight 62.727, kg, Priority: STAT, Start date: 02/25/18 18:45:00 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, Stop date: 02/25/18 18:45:00 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 Inactive 02/26/2018 [facility] Hydralazine 10 mg, 0.5 mL, Route: IVP, Drug form: INJ, Q4H, Dosing Weight 62.727, kg, PRN Hypertension, Priority: Routine, Start date: 02/25/18 18:09:00 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, Duration: 30 day, Stop date: 03/27/18 18:08:00 CSTNotes: (Same as: Apresoline) Push over 5 minutes No Longer Active 02/26/2018 [facility] Seroquel 25 mg, 1 tab, Route: PO, Drug form: TAB, BID, Dosing Weight 62.727, kg, PRN Agitation, Start date: 02/25/18 18:09:00 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, Duration: 30 day, Stop date: 03/27/18 18:08:00 CSTNotes: (Same as: SEROquel) No Longer Active 02/26/2018 [facility] Acetaminophen 325 MG / Hydrocodone Bitartrate 5 MG Oral Tablet [Comer 5/325] 1 tab, Route: PO, Drug Form: TAB, Dosing Weight 62.727, kg, Q6H, PRN Pain Score 1-3, Start date: 02/25/18 18:09:00 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, Duration: 30 day, Stop date: 03/27/18 18:08:00 CSTNotes: (Same as: Comer 325/5) Do not exceed 4gm/day of acetaminophen. No Longer Active 02/26/2018 [facility] Morphine 2 mg, 0.5 mL, Route: IVP, Drug form: SOLN, Q4H, Dosing Weight 62.727, kg, PRN Pain Score 7-10, Start date: 02/25/18 18:09:00 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, Duration: 30 day, Stop date: 03/27/18 18:08:00 CSTNotes: (Same as:MORPhine Sulfate) No Longer Active 02/26/2018 [facility] magnesium citrate 58.2 MG/ML Oral Solution 300 ml, Route: PO, Drug Form: LIQ, Dosing Weight 62.727, kg, ONCE, PRN Constipation, Start date: 02/25/18 18:09:00 CSTNotes: (Same as: Citrate of Magnesia) Concentration: 1.745 gm / 30 mL No Longer Active 02/26/2018 [facility] Nicotine 21 mg, 1 patch, Route: TOP, Drug form: ERFILM, Daily, Dosing Weight 62.727, kg, PRN as needed for smoking cessation, Start date: 02/25/18 18:09:00 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, Duration: 30 day, Stop date: 03/27/18 18:08:00 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 Notes: (Same as: Habitrol) "Remove old patch before application of new patch" WASTE: F/P - P Waste Black; E - P Waste Black No Longer Active 02/26/2018 [facility] Glucagon 1 mg, Route: IM, Drug form: PDR/INJ, PRN, Dosing Weight 62.727, kg, PRN Blood Glucose Results, Start date: 02/25/18 18:09:00 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, Duration: 30 day, Stop date: 03/27/18 18:08:00 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 No Longer Active 02/26/2018 [facility] Dextrose 50% Syringe 12.5 gm, 25 mL, Route: IVP, Drug Form: INJ, Dosing Weight 62.727, kg, PRN, PRN Blood Glucose Results, Start date: 02/25/18 18:09:00 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, Duration: 30 day, Stop date: 03/27/18 18:08:00 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 No Longer Active 02/26/2018 [facility] Acetaminophen 650 mg, 2 tab, Route: PO, Drug form: TAB, Q6H, Dosing Weight 62.727, kg, PRN For Temp > 100.4 F, Start date: 02/25/18 18:09:00 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, Duration: 30 day, Stop date: 03/27/18 18:08:00 CSTNotes: Do not exceed 4 gm/day. (Same as: Tylenol) No Longer Active 02/26/2018 [facility] Trazodone 50 mg, 1 tab, Route: PO, Drug form: TAB, Bedtime, Dosing Weight 62.727, kg, PRN Insomnia, Start date: 02/25/18 18:09:00 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, Duration: 30 day, Stop date: 03/27/18 18:08:00 CSTNotes: (Same As: Desyrel) No Longer Active 02/26/2018 [facility] Melatonin 3 mg, 1 tab, Route: PO, Drug form: TAB, Bedtime, Dosing Weight 62.727, kg, PRN Insomnia, Start date: 02/25/18 18:09:00 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, Duration: 30 day, Stop date: 03/27/18 18:08:00 CSTNotes: (Same as: Melatonin) No Longer Active 02/26/2018 [facility] Diphenhydramine 25 mg, 1 tab, Route: PO, Drug form: TAB, Q6H, Dosing Weight 62.727, kg, PRN as needed for allergy symptoms, Start date: 02/25/18 18:09:00 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, Duration: 30 day, Stop date: 03/27/18 18:08:00 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 No Longer Active 02/26/2018 [facility] POLYETHYLENE GLYCOL 3350 17 gm, 1 pkt, Route: PO, Drug form: PWDR, Daily, Dosing Weight 62.727, kg, PRN Constipation, Start date: 02/25/18 18:09:00 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, Duration: 30 day, Stop date: 03/27/18 18:08:00 CSTNotes: Dissolve in 8 oz of water or juice. (Same as: Miralax) No Longer Active 02/26/2018 [facility] Ondansetron 4 mg, 2 mL, Route: IVP, Drug form: INJ, Q6H, Dosing Weight 62.727, kg, PRN Nausea & Vomiting, Start date: 02/25/18 18:09:00 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, Duration: 30 day, Stop date: 03/27/18 18:08:00 CSTNotes: (Same as: Zofran) MEDICATION WASTE Product Size: 4 mg Product Wasted: ___ mg No Longer Active 02/26/2018 [facility] Bisacodyl 10 mg, 1 supp, Route: [place], Drug form: SUPP, Daily, Dosing Weight 62.727, kg, PRN Constipation, Start date: 02/25/18 18:09:00 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, Duration: 30 day, Stop date: 03/27/18 18:08:00 CSTNotes: (Same As: Dulcolax, [place]isco-Lax) No Longer Active 02/26/2018 [facility] NS 1,000 mL 1,000 mL, Rate: 125 ml/hr, Infuse over: 8 hr, Route: IV, Dosing Weight 53.4 kg, Total Volume: 1,000, Start date: 02/25/18 16:38:00 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, Duration: 30 day, Stop date: 03/27/18 16:37:00 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, 1.38, m2 No Longer Active 02/25/2018 [facility] Sodium Chloride 0.9% (Bolus) IV 1,000 mL, 1000 ml/hr, Infuse Over: 1 hr, Route: IV, 1,000, Drug form: INJ, ONCE, Priority: STAT, Dosing Weight 62.727 kg, Start date: 02/25/18 15:24:00 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, Stop date: 02/25/18 15:24:00 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 Inactive 02/25/2018 [facility] cefepime 1 gm, Route: IVPB, ONCE, Dosing Weight 62.727, kg, Priority: STAT, Start date: 02/25/18 15:20:00 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, Stop date: 02/25/18 15:20:00 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, ABX Indication: Urinary Tract Infection Inactive 02/25/2018 [facility] Morphine 2 mg, 1 mL, Route: IVP, Drug form: SOLN, ONCE, Dosing Weight 62.727, kg, Priority: STAT, Start date: 02/25/18 13:24:00 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, Stop date: 02/25/18 13:24:00 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 Inactive 02/25/2018 [facility] Ondansetron 4 mg, 2 mL, Route: IVP, Drug form: INJ, ONCE, Dosing Weight 62.727, kg, Priority: STAT, Start date: 02/25/18 13:24:00 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, Stop date: 02/25/18 13:24:00 CSTNotes: (Same as: Tomas) MEDICATION WASTE Product Size: 4 mg Product Wasted: ___ mg Inactive 02/25/2018 [facility] Sodium Chloride 0.9% (Bolus) IV 1,000 mL, 1000 ml/hr, Infuse Over: 1 hr, Route: IV, 1,000, Drug form: INJ, ONCE, Priority: STAT, Dosing Weight 62.727 kg, Start date: 02/25/18 13:24:00 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, Stop date: 02/25/18 13:24:00 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 Inactive 02/25/2018 [facility] Saline Flush 0.9% 10 mL, Route: IVP, Drug Form: INJ, Dosing Weight 62.727, kg, PRN, PRN Line Flush, Start date: 02/25/18 13:24:00 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, Duration: 30 day, Stop date: 03/27/18 13:23:00 CSTNotes: Same as: BD Posiflush Sterile No Longer Active 02/25/2018 [facility] Urocit-K 10 mEq, 1 tab, Route: PO, Drug form: ERTAB, TID- Meals, Dosing Weight 59.091, kg, Start date: 02/13/18 17:00:00 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, Duration: 30 day, Stop date: 03/15/18 12:00:00 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 Inactive 02/13/2018 [facility] Calcium Gluconate 2,000 mg, 20 mL, Route: IVPB, ONCE, Dosing Weight 59.091, kg, Start date: 02/13/18 11:36:00 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, Stop date: 02/13/18 11:36:00 CSTNotes: WASTE: F/P - Sink; E - Municipal Trash Bin Inactive 02/13/2018 [facility] Prednisone 60 mg, 3 tab, Route: PO, Drug form: TAB, Daily, Dosing Weight 59.091, kg, Priority: NOW, Start date: 02/12/18 13:23:00 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, Duration: 5 day, Stop date: 02/17/18 9:00:00 CSTNotes: Take with food. No Longer Active 02/12/2018 [facility] Sodium Bicarbonate 325 MG Oral Tablet 650 mg, 1 tab, Route: PO, Drug form: TAB, BID, Dosing Weight 59.091, kg, Start date: 02/12/18 9:00:00 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, Duration: 30 day, Stop date: 03/13/18 17:00:00 CSTNotes: "Dissolve tablet in a glass of water prior to oral administration. STOMACH WARNING: To avoid serious injury, do not take until tablet is completely dissolved. It is very important not to take this product when overly full from food or drink." No Longer Active 02/12/2018 [facility] sodium bicarbonate 8.4% additive 75 mEq + D5W 1/2NS 1,000 mL 1,000 mL, Rate: 75 ml/hr, Infuse over: 14.3 hr, Route: IV, Dosing Weight 59.091 kg, Total Volume: 1,075, Start date: 02/12/18 7:59:00 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, Duration: 30 day, Stop date: 03/14/18 7:58:00 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, 1.58, d1Yozhm: (sodium bicarb 8.4% (1 mEq/ml) 50 ml VL) No Longer Active 02/12/2018 [facility] Merrem 500 mg, Route: IVPB, [id number], Dosing Weight 59.091, kg, CrCL >=50ml/min, Extended infusion, infuse over 3 hours, Start date: 02/07/18 16:00:00 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, Duration: 10 day, Stop date: 02/17/18 10:00:00 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, ABX Indication: BacteremiaNotes: Same as Merrem MEDICATION WASTE Product Size: 500 mg Product Wasted: ___ mg No Longer Active 02/07/2018 [facility] meropenem + sterile water 10 mL 500 mg, Route: IV, ONCE, Start date: 02/07/18 8:06:00 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, Stop date: 02/07/18 8:06:00 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, ABX Indication: BacteremiaNotes: Same as [place]rem MEDICATION WASTE Product Size: 500 mg Product Wasted: ___ mg Inactive 02/07/2018 [facility] Imitrex 6 mg, 0.5 mL, Route: SUB-Q, Drug form: INJ, ONCE, Dosing Weight 59.091, kg, PRN Headache 6-10, Start date: 02/04/18 14:38:00 CSTNotes: For SUBCUTANEOUS use only Inactive 02/04/2018 [facility] D5NS 1,000 mL 1,000 mL, Rate: 75 ml/hr, Infuse over: 13.3 hr, Route: IV, Dosing Weight 59.091 kg, Total Volume: 1,000, Start date: 02/04/18 7:09:00 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, Duration: 30 day, Stop date: 03/06/18 7:08:00 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, 1.58, m2 No Longer Active 02/04/2018 [facility] sodium bicarbonate 8.4% additive 75 mEq + 1/2 NS 1,000 mL 1,000 mL, Rate: 70 ml/hr, Infuse over: 15.4 hr, Route: IV, Dosing Weight 59.091 kg, Total Volume: 1,075, Start date: 01/31/18 10:34:00 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, Duration: 30 day, Stop date: 03/02/18 10:33:00 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, 1.58, [id number]: (sodium bicarb 8.4% (1 mEq/ml) 50 ml VL) No Longer Active 01/31/2018 [facility] Adult Parenteral Nutrition Custom - Central (TPN) 1,850 mL 1,850 mL, Rate: 75 ml/hr, Infuse over: 24.7 hr, Dosing Weight 59.091, kg, Route: IV, Total Volume: 1,850 mL, Start Date: 01/26/18 22:00:00 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, Duration: 24 hr, Stop date: 01/27/18 21:59:00 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, Replace Every: 24 hrNotes: Central line only Must use 1.2 micron filter AND Lipids should not be administered to patients who are allergic to soy, fish, egg or peanuts. 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 "Single Patient Use Only " WASTE: F/P - Black; E - Municipal Trash Bin Stable for 28 days at room temperature. Expires in days from Date No Longer Active 01/26/2018 [facility] Dextrose 50% Syringe 25 mL, Route: IVP, Dosing Weight 59.091, kg, PRN, PRN Blood Glucose Results, Start date: 01/26/18 12:49:00 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, Duration: 30 day, Stop date: 02/25/18 12:48:00 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 Inactive 01/26/2018 [facility] Glucagon 1 mg, Route: IM, PRN, Dosing Weight 59.091, kg, PRN Blood Glucose Results, Start date: 01/26/18 12:49:00 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, Duration: 30 day, Stop date: 02/25/18 12:48:00 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 Inactive 01/26/2018 [facility] Adult Parenteral Nutrition Custom - Central (TPN) 1,850 mL 1,850 mL, Rate: 75 ml/hr, Infuse over: 24.7 hr, Dosing Weight 59.091, kg, Route: IV, Total Volume: 1,850 mL, Start Date: 01/25/18 22:00:00 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, Duration: 24 hr, Stop date: 01/26/18 21:59:00 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, Replace Every: 24 hrNotes: Central line only Must use 1.2 micron filter AND Lipids should not be administered to patients who are allergic to soy, fish, egg or peanuts. No Longer Active 01/26/2018 [facility] Levemir FlexPen 15 unit, Route: SUB-Q, Bedtime, Dosing Weight 59.091, kg, Start date: 01/25/18 21:00:00 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, Duration: 30 day, Stop date: 02/23/18 21:00:00 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 Inactive 01/26/2018 [facility] insulin glargine 15 unit, 0.15 mL, Route: SUB-Q, Drug form: SOLN, Bedtime, Start date: 01/25/18 21:00:00 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, Duration: 30 day, Stop date: 02/23/18 21:00:00 CSTNotes: (Same as: Lantus) Do not hold insulin without contac ting prescriber WASTE: F/P - Black; E - Municipal Trash Bin "single patient use only" No Longer Active 01/26/2018 [facility] Adult Parenteral Nutrition Custom - Central (TPN) 1,850 mL 1,850 mL, Rate: 75 ml/hr, Infuse over: 24.7 hr, Dosing Weight 59.091, kg, Route: IV, Total Volume: 1,850 mL, Start Date: 01/24/18 22:00:00 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, Duration: 24 hr, Stop date: 01/25/18 21:59:00 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, Replace Every: 24 hr No Longer Active 01/25/2018 [facility] K-Dur 20 40 mEq, 2 tab, Route: PO, Drug form: ERTAB, BID, Dosing Weight 59.091, kg, Priority: Routine, Start date: 01/24/18 18:30:00 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, Duration: 1 doses or times, Stop date: 01/24/18 18:30:00 CSTNotes: (Same as: K- Dur 20) "Do Not Crush" Give with food and full glass of water For patients unable to swallow tablet, dissolve in one half glass of water. Allow about 2 minutes for the tablets to disintegrate. Stir before giving to prepare slurry and administer. Please exclude Patients with feeding tube less than 14 [place] (Dobhoff, J-tube etc) and pediatric and patients. Inactive 01/25/2018 [facility] Protonix 40 mg, 1 tab, Route: PO, Drug form: ECTAB, BID, Dosing Weight 59.091, kg, Start date: 01/24/18 17:00:00 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, Duration: 30 day, Stop date: 02/23/18 9:00:00 CSTNotes: Tablet should not be chewed or crushed. (Same as: Protonix) No Longer Active 01/24/2018 [facility] Potassium Chloride 40 mEq, 30 mL, Route: PO, Drug form: LIQ, BID, Dosing Weight 59.091, kg, Priority: Routine, Start date: 01/24/18 9:00:00 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, Duration: 2 doses or times, Stop date: 01/24/18 17:00:00 CSTNotes: (Same as: Potassium Chloride) Inactive 01/24/2018 [facility] Adult Parenteral Nutrition Custom - Central (TPN) 1,850 mL 1,850 mL, Rate: 75 ml/hr, Infuse over: 24.7 hr, Dosing Weight 59.091, kg, Route: IV, Total Volume: 1,850 mL, Start Date: 01/23/18 22:00:00 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, Duration: 24 hr, Stop date: 01/24/18 21:59:00 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, Replace Every: 24 hr No Longer Active 01/24/2018 [facility] Insulin Lispro 3 unit, 0.03 mL, Route: SUB-Q, Drug form: SOLN, Sliding Scale, Dosing Weight 59.091, kg, PRN Blood Glucose Results, Start date: 01/23/18 21:46:00 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, Duration: 30 day, Stop date: 02/22/18 21:45:00 CSTN otes: (Same as: Humalog ) Roll in palms of hands gently; Do not shake `vigorously. "Single Patient Use Only " WASTE: F/P - Black; E - Municipal Trash Bin Stable for 28 days at room temperature. Expires in days from Date No Longer Active 01/24/2018 [facility] Glucagon 1 mg, Route: IM, Drug form: PDR/INJ, PRN, Dosing Weight 59.091, kg, PRN Blood Glucose Results, Start date: 01/23/18 21:46:00 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, Duration: 30 day, Stop date: 02/22/18 21:45:00 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 No Longer Active 01/24/2018 [facility] Dextrose 50% Syringe 25 gm, 50 mL, Route: IVP, Drug Form: INJ, Dosing Weight 59.091, kg, PRN, PRN Blood Glucose Results, Start date: 01/23/18 21:46:00 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, Duration: 30 day, Stop date: 02/22/18 21:45:00 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 No Longer Active 01/24/2018 [facility] D5W 1/2NS + KCL 30mEq/L 1000ml (Premix) 1,000 mL 1,000 mL, Rate: 100 ml/hr, Infuse over: 10 hr, Route: IV, Dosing Weight 59.091 kg, Total Volume: 1,000, Start date: 01/23/18 15:57:00 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, Duration: 30 day, Stop date: 02/22/18 15:56:00 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, 1.58, [id number]: PREMIX IV - Do Not Alter WASTE: F/P - Sink; E - Municipal Trash Bin Inactive 01/23/2018 [facility] Sucralfate 100 MG/ML Oral Suspension [Carafate] 1 gm, 1 tab, Route: PO, Drug form: TAB, QID, Dosing Weight 59.091, kg, Start date: 01/23/18 9:00:00 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, Duration: 30 day, Stop date: 02/21/18 21:00:00 CSTNotes: May interfere w/enteral feeds - Take 1 hr before or 2 hr after antacids, dairy pdt, meals & minerals - On empty stomach. For patients unable to swallow tablet, dissolve in 10mL - 30mL of water or juice and stir before giving. (Same As: Carafate) No Longer Active 01/23/2018 [facility] Sodium Chloride 0.9% IV 1,000 mL 1,000 mL, Rate: 25 ml/hr, Infuse over: 40 hr, Route: IV, Dosing Weight 59.091 kg, Total Volume: 1,000, Start date: 01/23/18 8:24:00 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, Duration: 1 day, Stop date: 01/24/18 8:23:00 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, 1.58, m2 Inactive 01/23/2018 [facility] Amlodipine 10 mg, 2 tab, Route: PO, Drug form: TAB, Daily, Dosing Weight 59.091, kg, Start date: 01/22/18 9:00:00 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, Duration: 30 day, Stop date: 03/22/18 9:00:00 CSTNotes: (Same as: Norvasc) No Longer Active 01/22/2018 [facility] Sertraline 100 mg, 1 tab, Route: PO, Drug form: TAB, Daily, Dosing Weight 59.091, kg, Start date: 01/22/18 9:00:00 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, Duration: 30 day, Stop date: 03/22/18 9:00:00 CSTNotes: (Same as: Zoloft) No Longer Active 01/22/2018 [facility] Protonix 40 mg, 1 tab, Route: PO, Drug form: ECTAB, Daily, Dosing Weight 59.091, kg, Start date: 01/22/18 9:00:00 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, Duration: 30 day, Stop date: 02/20/18 9:00:00 CSTNotes: Tablet should not be chewed or crushed. (Same as: Protonix) No Longer Active 01/22/2018 [facility] 24 HR Metoprolol Tartrate 25 MG Extended Release Tablet [Toprol] 25 mg, 1 tab, Route: PO, Drug form: ERTAB, Daily, Start date: 01/22/18 9:00:00 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, Duration: 30 day, Stop date: 03/22/18 9:00:00 CSTNotes: (Same as: Toprol XL) Do Not Crush No Longer Active 01/22/2018 [facility] gabapentin 300 MG Oral Capsule 300 mg, 1 cap, Route: PO, Drug form: CAP, Daily, Dosing Weight 59.091, kg, Start date: 01/22/18 9:00:00 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, Duration: 30 day, Stop date: 02/20/18 9:00:00 CSTNotes: (Same as: Neurontin) No Longer Active 01/22/2018 [facility] sodium bicarbonate 8.4% 50 mEq, 50 ml, Route: IVP, Drug Form: INJ, Dosing Weight 59.091, kg, ONCE, Start date: 01/22/18 6:44:00 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, Stop date: 01/22/18 6:44:00 CSTNotes: (sodium bicarb 8.4% (1 mEq/ml) 50 ml syringe) Inactive 01/22/2018 [facility] Magnesium Sulfate 2 gm, 50 mL, Route: IV, Drug form: INJ, ONCE, Dosing Weight 59.091, kg, Start date: 01/22/18 6:43:00 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, Stop date: 01/22/18 6:43:00 CSTNotes: WASTE: F/P - Sink; E - Municipal Trash Bin Inactive 01/22/2018 [facility] Water 1000 MG/ML Injectable Solution 1,000 mL, Rate: 125 ml/hr, Infuse over: 9.2 hr, Route: IV, Dosing Weight 59.091 kg, Total Volume: 1,150, Start date: 01/22/18 6:43:00 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, Duration: 30 day, Stop date: 02/21/18 6:42:00 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, 1.58, [id number]: (sodium bicarb 8.4% (1 mEq/ml) 50 ml VL) No Longer Active 01/22/2018 [facility] carvedilol 6.25 mg, 2 tab, Route: PO, Drug form: TAB, BID, Dosing Weight 59.091, kg, Start date: 01/21/18 21:00:00 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, Duration: 30 day, Stop date: 02/20/18 9:00:00 CSTNotes: Give with food. (Same As: Coreg) Inactive 01/22/2018 [facility] sennosides, LONG TERM 17.2 mg, 2 tab, Route: PO, Drug Form: TAB, Dosing Weight 59.091, kg, Bedtime, Start date: 01/21/18 21:00:00 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, Duration: 30 day, Stop date: 02/19/18 21:00:00 CSTNotes: (Same as: Senokot) No Longer Active 01/22/2018 [facility] Insulin Lispro 2 unit, 0.02 mL, Route: SUB-Q, Drug form: SOLN, Bedtime, Dosing Weight 59.091, kg, PRN Blood Glucose Results, Start date: 01/21/18 17:44:00 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, Duration: 30 day, Stop date: 02/20/18 17:43:00 CSTNotes: (Same as: Humalog ) Roll in palms of hands gently; Do not shake `vigorously. "Single Patient Use Only " WASTE: F/P - Black; E - Municipal Trash Bin Stable for 28 days at room temperature. Expires in days from Date No Longer Active 01/21/2018 [facility] Glucagon 1 mg, Route: IM, PRN, Dosing Weight 59.091, kg, PRN Blood Glucose Results, Start date: 01/21/18 17:44:00 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, Duration: 30 day, Stop date: 02/20/18 17:43:00 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 Inactive 01/21/2018 [facility] Dextrose 50% Syringe 50 mL, Route: IVP, Dosing Weight 59.091, kg, PRN, PRN Blood Glucose Results, Start date: 01/21/18 17:44:00 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, Duration: 30 day, Stop date: 02/20/18 17:43:00 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 Inactive 01/21/2018 [facility] Morphine 2 mg, 1 mL, Route: IV, Drug form: SOLN, Q4H, Dosing Weight 59.091, kg, PRN Pain Score 6-10, Start date: 01/21/18 17:41:00 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, Duration: 30 day, Stop date: 02/20/18 17:40:00 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 No Longer Active 01/21/2018 [facility] Phenergan 12.5 mg, 0.5 mL, Route: IVPB, Q6H, Dosing Weight 59.091, kg, PRN as needed for nausea/vomiting, Start date: 01/21/18 17:41:00 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, Duration: 30 day, Stop date: 02/20/18 17:40:00 CSTNotes: Do not give IV push. (Same as: Phenergan) No Longer Active 01/21/2018 [facility] NS (Bolus) IV 1,000 mL, 500 ml/hr, Infuse Over: 2 hr, Route: IV, 1,000, Drug form: INJ, ONCE, Priority: STAT, Dosing Weight 59.091 kg, Start date: 01/21/18 17:39:00 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, Stop date: 01/21/18 17:39:00 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 Inactive 01/21/2018 [facility] Docusate 100 mg, 1 cap, Route: PO, Drug form: CAP, BID, Dosing Weight 59.091, kg, Start date: 01/21/18 17:00:00 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, Duration: 30 day, Stop date: 02/20/18 9:00:00 CSTNotes: (Same as: Colace) (Do Not Crush) No Longer Active 01/21/2018 [facility] Metoprolol Succinate ER 50 mg oral tablet, extended release 50 mg=1 tab, PO, Daily, TAKE 1 TABLET BY MOUTH EVERY DAY Active 01/21/2018 [facility] Lorazepam 0.5 mg, 1 tab, Route: PO, Drug form: TAB, BID, Dosing Weight 59.091, kg, PRN Anxiety, Start date: 01/21/18 12:38:00 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, Duration: 30 day, Stop date: 02/20/18 12:37:00 CSTNotes: (Same as: Ativan) No Longer Active 01/21/2018 [facility] Phenergan 25 mg, 1 mL, Route: IVPB, Q6H, Dosing Weight 59.091, kg, PRN Nausea & Vomiting, Start date: 01/21/18 12:37:00 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, Duration: 30 day, Stop date: 02/20/18 12:36:00 CSTNotes: Do not give IV push. (Same as: Phenergan) Inactive 01/21/2018 [facility] Acetaminophen 325 MG / Hydrocodone Bitartrate 5 MG Oral Tablet [Comer 5/325] 1 tab, Route: PO, Drug Form: TAB, Dosing Weight 59.091, kg, Q6H, PRN Pain Score 1-3, Start date: 01/21/18 12:35:00 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, Duration: 30 day, Stop date: 02/20/18 12:34:00 CSTNotes: (Same as: Comer 325/5) Do not exceed 4gm/day of acetaminophen. No Longer Active 01/21/2018 [facility] Morphine 4 mg, 1 mL, Route: IVP, Drug form: SOLN, Q4H, Dosing Weight 59.091, kg, PRN Pain Score 7-10, Start date: 01/21/18 12:35:00 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, Duration: 30 day, Stop date: 02/20/18 12:34:00 CSTNotes: (Same as:MORPhine Sulfate) Inactive 01/21/2018 [facility] NS (Bolus) IV 1,000 mL, 500 ml/hr, Infuse Over: 2 hr, Route: IV, 1,000, Drug form: INJ, ONCE, Priority: STAT, Dosing Weight 59.091 kg, Start date: 01/21/18 12:33:00 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, Stop date: 01/21/18 12:33:00 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 Inactive 01/21/2018 [facility] Magnesium Sulfate 2 gm, 50 mL, Route: IVPB, Drug form: INJ, ONCE, Dosing Weight 59.091, kg, Start date: 01/21/18 12:32:00 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, Stop date: 01/21/18 12:32:00 CSTNotes: WASTE: F/P - Sink; E - Municipal Trash Bin Inactive 01/21/2018 [facility] Morphine 4 mg, Route: IVP, ONCE, Dosing Weight 59.091, kg, Start date: 01/21/18 10:30:00 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, Stop date: 01/21/18 10:30:00 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 Inactive 01/21/2018 [facility] NS 1,000 mL 1,000 mL, Rate: 125 ml/hr, Infuse over: 8 hr, Route: IV, Dosing Weight 59.091 kg, Total Volume: 1,000, Start date: 01/21/18 10:10:00 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, Duration: 30 day, Stop date: 02/20/18 10:09:00 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, 1.58, m2 No Longer Active 01/21/2018 [facility] NS 500 mL 500 mL, Rate: 1,000 ml/hr, Infuse over: 0.5 hr, Route: IV, Dosing Weight 59.091 kg, Total Volume: 500, Start date: 01/21/18 10:10:00 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, Duration: 1 doses or times, Stop date: 01/21/18 14:09:00 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, Bolus Dose, 1.58, m2 Inactive 01/21/2018 [facility] Dextrose 50% Syringe 25 gm, 50 mL, Route: IVP, Drug Form: INJ, Dosing Weight 59.091, kg, PRN, PRN Blood Glucose Results, Start date: 01/21/18 9:40:00 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, Duration: 30 day, Stop date: 02/20/18 9:39:00 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 No Longer Active 01/21/2018 [facility] Glucagon 1 mg, Route: IM, Drug form: PDR/INJ, PRN, Dosing Weight 59.091, kg, PRN Blood Glucose Results, Start date: 01/21/18 9:40:00 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, Duration: 30 day, Stop date: 02/20/18 9:39:00 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 No Longer Active 01/21/2018 [facility] Acetaminophen 650 mg, 2 tab, Route: PO, Drug form: TAB, Q4H, Dosing Weight 59.091, kg, PRN For Temp > 100.4 F, Start date: 01/21/18 9:40:00 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, Duration: 30 day, Stop date: 02/20/18 9:39:00 CSTNotes: Do not exceed 4 gm/day. (Same as: Tylenol) No Longer Active 01/21/2018 [facility] Melatonin 3 mg, 1 tab, Route: PO, Drug form: TAB, Bedtime, Dosing Weight 59.091, kg, PRN Insomnia, Start date: 01/21/18 9:40:00 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, Duration: 30 day, Stop date: 02/20/18 9:39:00 CSTNotes: (Same as: Melatonin) No Longer Active 01/21/2018 [facility] Ondansetron 4 mg, 2 mL, Route: IVP, Drug form: INJ, Q8H, Dosing Weight 59.091, kg, PRN Nausea & Vomiting, Start date: 01/21/18 9:40:00 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, Duration: 30 day, Stop date: 02/20/18 9:39:00 CSTNotes: (Same as: Zofran) MEDICATION WASTE Product Size: 4 mg Product Wasted: ___ mg No Longer Active 01/21/2018 [facility] Metoprolol 5 mg, Route: IVP, Drug form: INJ, ONCE, Dosing Weight 59.091, kg, Priority: STAT, Start date: 01/21/18 9:37:00 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, Stop date: 01/21/18 9:37:00 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 Inactive 01/21/2018 [facility] Morphine 4 mg, 1 mL, Route: IVP, Drug form: SOLN, ONCE, Dosing Weight 59.091, kg, Priority: STAT, Start date: 01/21/18 8:05:00 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, Stop date: 01/21/18 8:05:00 CSTNotes: (Same as:MORPhine Sulfate) Inactive 01/21/2018 [facility] Sodium Chloride 0.9% (Bolus) IV 1,000 mL, 1000 ml/hr, Infuse Over: 1 hr, Route: IV, 1,000, Drug form: INJ, ONCE, Priority: STAT, Dosing Weight 59.091 kg, Start date: 01/21/18 7:58:00 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, Stop date: 01/21/18 7:58:00 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 Inactive 01/21/2018 [facility] Ondansetron 4 mg, Route: IVP, Drug form: INJ, ONCE, Dosing Weight 59.091, kg, Priority: STAT, Start date: 01/21/18 6:36:00 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, Stop date: 01/21/18 6:36:00 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 Inactive 01/21/2018 [facility] Sodium Chloride 0.9% (Bolus) IV 1,000 mL, Infuse Over: 1 hr, Route: IV, ONCE, Priority: STAT, Dosing Weight 59.091 kg, Start date: 01/21/18 6:36:00 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, Stop date: 01/21/18 6:36:00 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 Inactive 01/21/2018 [facility] Morphine 4 mg, Route: IVP, ONCE, Dosing Weight 59.091, kg, Priority: STAT, Start date: 01/21/18 6:36:00 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, Stop date: 01/21/18 6:36:00 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 Inactive 01/21/2018 [facility] LORazepam 0.5 mg oral tablet 0.5 mg=1 tab, PO, BID, PRN Anxiety, # 20 tab, 0 Refill(s) Active 01/13/2018 [facility] pantoprazole 40 MG Enteric Coated Tablet [Protonix] 40 mg=1 tab, PO, Daily, # 30 tab, 0 Refill(s), Pharmacy: [facility]/pharmacy #[id number] Active 01/13/2018 [facility] Ondansetron 4 MG Disintegrating Tablet [Zofran] 4 mg=1 tab, PO, Q6H, PRN Nausea & Vomiting, Dissolve tab under tongue, # 30 tab, 0 Refill(s), Pharmacy: [facility]/pharmacy #[id number] Active 01/13/2018 [facility] Hydromorphone 1 mg, 1 mL, Route: IVP, Drug form: SOLN, ONCE, Dosing Weight 60.909, kg, Priority: STAT, Start date: 01/10/18 13:14:00 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, Stop date: 01/10/18 13:14:00 CSTNotes: (Same as: Dilaudid) Inactive 01/10/2018 [facility] Adult Parenteral Nutrition Custom - Central (TPN) 1,850 mL 1,850 mL, Rate: 75 ml/hr, Infuse over: 24.7 hr, Dosing Weight 60.909, kg, Route: IV, Total Volume: 1,850 mL, Start Date: 01/07/18 22:00:00 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, Duration: 24 hr, Stop date: 01/08/18 21:59:00 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, Replace Every: 24.7 hr No Longer Active 01/08/2018 [facility] Adult Parenteral Nutrition Custom - Central (TPN) 1,850 mL 1,850 mL, Rate: 75 ml/hr, Infuse over: 24.7 hr, Dosing Weight 60.909, kg, Route: IV, Total Volume: 1,850 mL, Start Date: 01/06/18 22:00:00 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, Duration: 24 hr, Stop date: 01/07/18 21:59:00 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, Replace Every: 24 hrNotes: Central line only Must use 0.22 micron filter No Longer Active 01/07/2018 [facility] Adult Parenteral Nutrition Custom - Central (TPN) 1,850 mL 1,850 mL, Rate: 75 ml/hr, Infuse over: 24.7 hr, Dosing Weight 60.909, kg, Route: IV, Total Volume: 1,850 mL, Start Date: 01/05/18 22:00:00 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, Duration: 24 hr, Stop date: 01/06/18 21:59:00 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, Replace Every: 24.7 hrNotes: Central line only Must use 0.22 micron filter No Longer Active 01/06/2018 [facility] Insulin Lispro 15 unit, 0.15 mL, Route: SUB-Q, Drug form: SOLN, ONCE, Dosing Weight 60.909, kg, Start date: 01/04/18 22:20:00 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, Stop date: 01/04/18 22:20:00 CSTNotes: (Same as: Humalog ) Roll in palms of hands g ently; Do not shake `vigorously. "Single Patient Use Only " WASTE: F/P - Black; E - Municipal Trash Bin Stable for 28 days at room temperature. Expires in days from Date Inactive 01/05/2018 [facility] Lovenox 30 mg, 0.3 mL, Route: SUB-Q, Drug form: INJ, [id number], Dosing Weight 60.909, kg, For CrCl Notes: (Same as: Lovenox) No Longer Active 01/05/2018 [facility] Adult Parenteral Nutrition Custom - Central (TPN) 1,850 mL 1,850 mL, Rate: 75 ml/hr, Infuse over: 24.7 hr, Dosing Weight 60.909, kg, Route: IV, Total Volume: 1,850 mL, Start Date: 01/04/18 22:00:00 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, Duration: 24 hr, Stop date: 01/05/18 21:59:00 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, Replace Every: 24.7 hrNotes: Central line only Must use 0.22 micron filter No Longer Active 01/05/2018 [facility] insulin glargine 15 unit, 0.15 mL, Route: SUB-Q, Drug form: SOLN, Bedtime, Start date: 01/04/18 21:00:00 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, Duration: 30 day, Stop date: 02/02/18 21:00:00 CSTNotes: (Same as: Lantus) Do not hold insulin without contac ting prescriber WASTE: F/P - Black; E - Municipal Trash Bin "single patient use only" No Longer Active 01/05/2018 [facility] Levemir FlexPen 15 unit, Route: SUB-Q, Bedtime, Dosing Weight 60.909, kg, Start date: 01/04/18 21:00:00 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, Duration: 30 day, Stop date: 02/02/18 21:00:00 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 No Longer Active 01/05/2018 [facility] Melatonin 3 mg, 1 tab, Route: PO, Drug form: TAB, Bedtime, Dosing Weight 60.909, kg, PRN Sleep, Start date: 01/04/18 15:50:00 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, Duration: 30 day, Stop date: 02/03/18 15:49:00 CSTNotes: (Same as: Melatonin) No Longer Active 01/04/2018 [facility] Ativan 0.5 mg, 1 tab, Route: PO, Drug form: TAB, TID, Dosing Weight 60.909, kg, PRN Anxiety, Start date: 01/04/18 15:50:00 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, Duration: 30 day, Stop date: 02/03/18 15:49:00 CSTNotes: (Same as: Ativan) No Longer Active 01/04/2018 [facility] Ambien 5 mg, 1 tab, Route: PO, Drug form: TAB, Bedtime, Dosing Weight 60.909, kg, PRN Insomnia, Start date: 01/04/18 15:24:00 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, Duration: 30 day, Stop date: 02/03/18 15:23:00 CSTNotes: (Same As: Ambien) No Longer Active 01/04/2018 [facility] Amlodipine 10 mg, 2 tab, Route: PO, Drug form: TAB, Daily, Dosing Weight 60.909, kg, Start date: 01/04/18 9:00:00 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, Duration: 30 day, Stop date: 02/02/18 9:00:00 CSTNotes: (Same as: Norvasc) No Longer Active 01/04/2018 [facility] carvedilol 6.25 mg, 2 tab, Route: PO, Drug form: TAB, BID, Dosing Weight 60.909, kg, Start date: 01/04/18 9:00:00 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, Duration: 30 day, Stop date: 02/02/18 17:00:00 CSTNotes: Give with food. (Same As: Coreg) No Longer Active 01/04/2018 [facility] Sertraline 100 mg, 1 tab, Route: PO, Drug form: TAB, Daily, Dosing Weight 60.909, kg, Start date: 01/04/18 9:00:00 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, Duration: 30 day, Stop date: 02/02/18 9:00:00 CSTNotes: (Same as: Zoloft) No Longer Active 01/04/2018 [facility] pantoprazole 40 mg, Route: IVP, Drug form: INJ, Q12H, Dosing Weight 60.909, kg, Start date: 01/04/18 9:00:00 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, Duration: 30 day, Stop date: 02/02/18 21:00:00 CSTNotes: For IV push reconstitute with 10 ml 0.9% sod ium chloride and push over 2 minutes. 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 Ref rigerate. 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 No Longer Active 01/04/2018 [facility] Adult Parenteral Nutrition Custom - Central (TPN) 1,370 mL 1,370 mL, Rate: 55 ml/hr, Infuse over: 24.9 hr, Dosing Weight 60.909, kg, Route: IV, Total Volume: 1,370 mL, Start Date: 01/03/18 22:00:00 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, Duration: 24 hr, Stop date: 01/04/18 21:59:00 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, Replace Every: 24.9 hr No Longer Active 01/04/2018 [facility] Lorazepam 0.25 mg, 0.5 tab, Route: PO, Drug form: TAB, BID, Dosing Weight 60.909, kg, PRN Anxiety, Start date: 01/03/18 21:39:00 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, Duration: 30 day, Stop date: 02/02/18 21:38:00 CSTNotes: (Same as: Ativan) No Longer Active 01/04/2018 [facility] octreotide 50 mcg/mL injectable solution 50 microgram, SUB-Q, TID, # 1 ml, 0 Refill(s) No Longer Active 01/04/2018 [facility] gabapentin 300 MG Oral Capsule 300 mg=1 cap, PO, Daily, 0 Refill(s) No Longer Active 01/04/2018 [facility] Furosemide 40 MG Oral Tablet [Lasix] 40 mg=1 tab, PO, Daily, # 90 tab, 0 Refill(s) Active 01/04/2018 [facility] 0.4 ML Enoxaparin sodium 100 MG/ML Prefilled Syringe [Lovenox] 40 mg, SUB-Q, Daily, # 7 ea, 0 Refill(s) No Longer Active 01/04/2018 [facility] ziprasidone 5 mg, IM, Q6H, 0 Refill(s) No Longer Active 01/04/2018 [facility] Insulin, Aspart, Human SUB-Q, TID-Before Meals, 0 Refill(s) Active 01/04/2018 [facility] Diclofenac Sodium 0.01 MG/MG Topical Gel 2 gm=, TOP, QID, 0 Refill(s) No Longer Active 01/04/2018 [facility] 1 ML Hydromorphone Hydrochloride 1 MG/ML Prefilled Syringe [Dilaudid] 1 mg=1 ml, IM, Q4H, PRN Pain, 0 Refill(s) No Longer Active 01/04/2018 [facility] LORazepam 0.5 mg oral tablet 0.25 mg=0.5 tab, PO, BID, PRN Anxiety, # 15 tab, 0 Refill(s) No Longer Active 01/04/2018 [facility] 168 HR Clonidine 0.33143 MG/HR Transdermal Patch 1 patch, TOP, qWeek, # 4 patch, 0 Refill(s) No Longer Active 01/04/2018 [facility] carvedilol 6.25 mg oral tablet 6.25 mg=1 tab, PO, BID, # 180 tab, 0 Refill(s) No Longer Active 01/04/2018 [facility] amLODIPine 10 mg oral tablet 10 mg=1 tab, PO, Daily, # 90 tab, 0 Refill(s) Active 01/04/2018 [facility] metoprolol tartrate 25 mg oral tablet 25 mg=1 tab, PO, BID, # 60 tab, 0 Refill(s) No Longer Active 01/04/2018 [facility] Lidocaine 4 %, IV, Daily, 0 Refill(s) No Longer Active 01/04/2018 [facility] Lidocaine 0.05 MG/MG Transdermal Patch TOP, Daily, 0 Refill(s) No Longer Active 01/04/2018 [facility] sertraline 100 mg oral tablet 100 mg=1 tab, PO, Daily, # 30 tab, 0 Refill(s) Active 01/04/2018 [facility] Acetaminophen 325 MG / Hydrocodone Bitartrate 10 MG Oral Tablet [[place] 10/325] 1 tab, PO, Q4H, PRN for pain, # 24 tab, 0 Refill(s) Active 01/04/2018 [facility] Albuterol 0.833 MG/ML / Ipratropium [place] 0.167 MG/ML Inhalant Solution 3 mL, INHALATION, Q6H, PRN Wheezing, # 30 ea, 1 Refill(s) Active 01/04/2018 [facility] pantoprazole 40 mg intravenous injection 40 mg, IV, Q12H, 0 Refill(s) No Longer Active 01/04/2018 [facility] Hydralazine 10 mg, IV, Q4H, PRN Hypertension, 0 Refill(s) No Longer Active 01/04/2018 [facility] Ondansetron 2 MG/ML Injectable Solution [Zofran] 4 mg=2 ml, IV, Q6H, PRN Nausea & Vomiting, # 1 ea, 0 Refill(s) No Longer Active 01/04/2018 [facility] Metoclopramide 5 mg, IV, 0 Refill(s) No Longer Active 01/04/2018 [facility] Acetaminophen 650 mg, PO, Q6H, PRN Pain 4-6/Temp > 100.4 F, 0 Refill(s) Active 01/04/2018 [facility] Tylenol 650 mg, 2 tab, Route: PO, Drug form: TAB, Q6H, Dosing Weight 60.909, kg, PRN Pain 1-3/Temp > 100.4 F, Start date: 01/03/18 14:56:00 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, Duration: 30 day, Stop date: 02/02/18 14:55:00 CSTNotes: Do not exceed 4 gm/day. (Same as: Tylenol) No Longer Active 01/03/2018 [facility] Adult Parenteral Nutrition Custom - Central (TPN) 1,370 mL 1,370 mL, Rate: 55 ml/hr, Infuse over: 24.9 hr, Dosing Weight 60.909, kg, Route: IV Central, Total Volume: 1,370 mL, Start Date: 01/02/18 22:00:00 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, Duration: 24 hr, Stop date: 01/03/18 21:59:00 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, Replace Every: 24.9 hrNotes: Central line only Must use 0.22 micron filter No Longer Active 01/03/2018 [facility] Insulin Lispro 15 unit, 0.15 mL, Route: SUB-Q, Drug form: SOLN, Sliding Scale, Dosing Weight 60.909, kg, PRN Blood Glucose Results, Start date: 01/02/18 18:41:00 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, Duration: 30 day, Stop date: 02/01/18 18:40:00 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 Notes: (Same as: Humalog ) Roll in palms of hands gently; Do not shake `vigorously. "Single Patient Use Only " WASTE: F/P - Black; E - [place] Trash Bin Stable for 28 days at room temperature. Expires in days from Date No Longer Active 01/03/2018 [facility] Dextrose 50% Syringe 25 gm, 50 mL, Route: IVP, Drug Form: INJ, Dosing Weight 60.909, kg, PRN, PRN Blood Glucose Results, Start date: 01/02/18 18:41:00 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, Duration: 30 day, Stop date: 02/01/18 18:40:00 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 No Longer Active 01/03/2018 [facility] Glucagon 1 mg, Route: IM, Drug form: PDR/INJ, PRN, Dosing Weight 60.909, kg, PRN Blood Glucose Results, Start date: 01/02/18 18:41:00 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, Duration: 30 day, Stop date: 02/01/18 18:40:00 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 No Longer Active 01/03/2018 [facility] Insulin Lispro 5 unit, 0.05 mL, Route: SUB-Q, Drug form: SOLN, ONCE, Dosing Weight 60.909, kg, Start date: 01/02/18 4:18:00 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, Stop date: 01/02/18 4:18:00 CSTNotes: (Same as: Humalog ) Roll in palms of hands gent ly; Do not shake `vigorously. "Single Patient Use Only " WASTE: F/P - Black; E - Municipal Trash Bin Stable for 28 days at room temperature. Expires in days from Date Inactive 01/02/2018 [facility] heparin 5,000 unit, 1 mL, Route: SUB-Q, Drug form: INJ, Q12H, Dosing Weight 60.909, kg, Start date: 01/01/18 21:00:00 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, Duration: 30 day, Stop date: 01/31/18 9:00:00 CSTNotes: porcine heparin No Longer Active 01/02/2018 [facility] Clonidine Hydrochloride 0.1 MG Oral Tablet 0.1 mg, 1 tab, Route: PO, Drug form: TAB, Q8H, Dosing Weight 60.909, kg, PRN Hypertension, Start date: 01/01/18 14:49:00 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, Duration: 30 day, Stop date: 01/31/18 14:48:00 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, SBP >160Notes: (Same As: Catapres) No Longer Active 01/01/2018 [facility] Zofran 4 mg, 2 mL, Route: IVP, Drug form: INJ, Q8H, Dosing Weight 60.909, kg, PRN as needed for nausea/vomiting, Priority: STAT, Start date: 01/01/18 14:49:00 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, Duration: 30 day, Stop date: 01/31/18 14:48:00 CSTNotes: (Same as: Zofran) MEDICATION WASTE Product Size: 4 mg Product Wasted: ___ mg No Longer Active 01/01/2018 [facility] Insulin Lispro 4 unit, 0.04 mL, Route: SUB-Q, Drug form: SOLN, Bedtime, Dosing Weight 60.909, kg, PRN Blood Glucose Results, Start date: 01/01/18 14:47:00 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, Duration: 30 day, Stop date: 01/31/18 14:46:00 CSTNotes: (Same as: Humalog ) Roll in palms of hands gently; Do not shake `vigorously. "Single Patient Use Only " WASTE: F/P - Black; E - Municipal Trash Bin Stable for 28 days at room temperature. Expires in days from Date No Longer Active 01/01/2018 [facility] Glucagon 1 mg, Route: IM, Drug form: PDR/INJ, PRN, Dosing Weight 60.909, kg, PRN Blood Glucose Results, Start date: 01/01/18 14:47:00 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, Duration: 30 day, Stop date: 01/31/18 14:46:00 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 No Longer Active 01/01/2018 [facility] Dextrose 50% Syringe 12.5 gm, 25 mL, Route: IVP, Drug Form: INJ, Dosing Weight 60.909, kg, PRN, PRN Blood Glucose Results, Start date: 01/01/18 14:47:00 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, Duration: 30 day, Stop date: 01/31/18 14:46:00 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 No Longer Active 01/01/2018 [facility] sodium bicarbonate 8.4% additive 75 mEq + D5W 1/2NS 1,000 mL 1,000 mL, Rate: 125 ml/hr, Infuse over: 8.6 hr, Route: IV, Dosing Weight 60.909 kg, Total Volume: 1,075, Start date: 01/01/18 12:45:00 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, Duration: 30 day, Stop date: 01/31/18 12:44:00 TUBE CLOSING MACHINE OPERATOR, 1.6, [id number]: (sodium bicarb 8.4% (1 mEq/ml) 50 ml VL) No Longer Active 01/01/2018 [facility] NS 500 mL 500 mL, Rate: 1,000 ml/hr, Infuse over: 0.5 hr, Route: IV, Dosing Weight 60.909 kg, Total Volume: 500, Start date: 01/01/18 12:45:00 TUBE CLOSING MACHINE OPERATOR, Duration: 1 doses or times, Stop date: 01/01/18 13:14:00 TUBE CLOSING MACHINE OPERATOR, Bolus Dose, 1.6, m2 Inactive 01/01/2018 [facility] Dilaudid 1 mg, 1 mL, Route: IV, Drug form: SOLN, Q12H, Dosing Weight 60.909, kg, PRN Dressing Change, Start date: 01/01/18 10:26:00 TUBE CLOSING MACHINE OPERATOR, Stop date: 01/31/18 9:26:00 CSTNotes: (Same as: Dilaudid) No Longer Active 01/01/2018 [facility] Acetaminophen 325 MG / Hydrocodone Bitartrate 10 MG Oral Tablet [[place] 10/325] 1 tab, Route: PO, Drug Form: TAB, Dosing Weight 60.909, kg, Q6H, PRN Pain Score 4-6, Start date: 01/01/18 10:26:00 TUBE CLOSING MACHINE OPERATOR, Duration: 30 day, Stop date: 01/31/18 10:25:00 CSTNotes: Do not exceed 4gm/day of acetaminophen. (Same as: [place] 325/10) No Longer Active 01/01/2018 [facility] Dilaudid 1 mg, 1 mL, Route: IV, Drug form: SOLN, Q6H, Dosing Weight 60.909, kg, PRN Pain Score 4-6, Start date: 01/01/18 8:31:00 TUBE CLOSING MACHINE OPERATOR, Stop date: 01/31/18 11:00:00 CSTNotes: (Same as: Dilaudid) Inactive 01/01/2018 [facility] Allergies, Adverse Reactions, Alerts Substance Category Reaction Severity Reaction type Status Date Reported Comments Source ibuprofen Assertion Drug allergy Active [facility] Motrin Assertion Drug allergy Active [facility] Immunizations No Data Provided for This Section Results Order Name Results Value Reference Range Date Interpretation Comments Source ELECTROLYTES AGAP 11.2 10.0 - 20.0 03/05/2018 [facility] ELECTROLYTES Sodium Lvl 134 135 - 145 03/05/2018 [facility] ELECTROLYTES Potassium Lvl 3.2 3.5 - 5.1 03/05/2018 [facility] ELECTROLYTES Chloride Lvl 93 95 - 109 03/05/2018 [facility] ELECTROLYTES eGFR 23 03/05/2018 Result Comment: The eGFR is calculated [...] should be multiplied by the estimated BMI. [facility] ELECTROLYTES Calcium Lvl 7.8 8.5 - 10.5 03/05/2018 [facility] ELECTROLYTES Creatinine Lvl 2.18 0.50 - 1.40 03/05/2018 [facility] ELECTROLYTES CO2 33 24 - 32 03/05/2018 [facility] ELECTROLYTES Glucose Lvl 117 70 - 99 03/05/2018 [facility] ELECTROLYTES BUN 41 7 - 22 03/05/2018 [facility] HEMATOLOGY MCH 29.8 27.0 - 31.0 03/05/2018 [facility] HEMATOLOGY MCV 90.3 80.0 - 98.0 03/05/2018 [facility] HEMATOLOGY Hct 29.1 36.0 - 48.0 03/05/2018 [facility] MPV 6.8 7.4 - 10.4 03/05/2018 [facility] HEMATOLOGY Platelet 295 133 - 450 03/05/2018 [facility] HEMATOLOGY RDW 16.3 11.5 - 14.5 03/05/2018 [facility] HEMATOLOGY RBC 3.23 4.20 - 5.40 03/05/2018 [facility] HEMATOLOGY WBC 8.5 3.7 - 10.4 03/05/2018 [facility] Hgb 9.6 12.0 - 16.0 03/05/2018 [facility] MCHC 33.0 32.0 - 36.0 03/05/2018 [facility] CHEM PANEL Glucose Lvl 150 70 - 99 03/04/2018 [facility] CHEM PANEL BUN 50 7 - 22 03/04/2018 [facility] CHEM PANEL Calcium Lvl 7.5 8.5 - 10.5 03/04/2018 [facility] CHEM PANEL Chloride Lvl 93 95 - 109 03/04/2018 [facility] CHEM PANEL CO2 30 24 - 32 03/04/2018 [facility] CHEM PANEL AGAP 15.7 10.0 - 20.0 03/04/2018 [facility] CHEM PANEL eGFR 20 03/04/2018 Result Comment: The eGFR is calculated [...] BMI. [facility] CHEM PANEL Sodium Lvl 135 135 - 145 03/04/2018 [facility] CHEM PANEL Potassium Lvl 3.7 3.5 - 5.1 03/04/2018 [facility] CHEM PANEL Creatinine Lvl 2.41 0.50 - 1.40 03/04/2018 [facility] CHEM PANEL eGFR 14 03/03/2018 Result Comment: The eGFR is calculated [...] estimated BMI. [facility] CHEM PANEL BUN 49 7 - 22 03/03/2018 [facility] CHEM PANEL Glucose Lvl 211 70 - 99 03/03/2018 [facility] CHEM PANEL Creatinine Lvl 3.34 0.50 - 1.40 03/03/2018 [facility] CHEM PANEL Potassium Lvl 3.5 3.5 - 5.1 03/03/2018 [facility] CHEM PANEL Sodium Lvl 134 135 - 145 03/03/2018 [facility] CHEM PANEL Chloride Lvl 88 95 - 109 03/03/2018 [facility] CHEM PANEL Calcium Lvl 8.3 8.5 - 10.5 03/03/2018 [facility] CHEM PANEL CO2 31 24 - 32 03/03/2018 [facility] CHEM PANEL AGAP 18.5 10.0 - 20.0 03/03/2018 [facility] CHEM PANEL Magnesium Lvl 2.8 1.8 - 2.4 03/01/2018 [facility] CHEM PANEL Phosphorus 3.5 2.5 - 4.5 03/01/2018 [facility] PARATHYROID PROFILE Ca Ion WB 1.15 1.05 - 1.25 03/01/2018 [facility] PARATHYROID PROFILE Ca Norm WB 1.15 1.05 - 1.25 03/01/2018 [facility] CHEM PANEL Phosphorus 4.2 2.5 - 4.5 02/28/2018 [facility] CHEM PANEL Magnesium Lvl 0.5 1.8 - 2.4 02/28/2018 Result Comment: Critical Result(s) called to Pushpa Hester at 02/28/2018 10:16 by DMF. Read back OK. [facility] CHEM PANEL Phosphorus 2.1 2.5 - 4.5 02/28/2018 [facility] CHEM PANEL Magnesium Lvl <0.3 1.8 - 2.4 02/28/2018 Result Comment: Critical Result(s) called to RN. Milly Thao at 02/28/2018 05:40 by drt. Read back OK. [facility] CHEM PANEL Vitamin D, 25-OH, Total 24.8 30.0 - 100.0 02/27/2018 [facility] PARATHYROID PROFILE PTH Intact 50.3 18.4 - 80.1 02/27/2018 [facility] HEMATOLOGY Lymphocytes # 2.3 1.0 - 5.5 02/27/2018 [facility] HEMATOLOGY Basophils # 0.1 0.0 - 0.2 02/27/2018 [facility] HEMATOLOGY Monocytes # 1.0 0.0 - 0.8 02/27/2018 [facility] HEMATOLOGY Eosinophils # 0.2 0.0 - 0.5 02/27/2018 [facility] HEMATOLOGY Neutrophils # 5.2 1.5 - 8.1 02/27/2018 [facility] HEMATOLOGY Basophils 1.0 0.0 - 1.0 02/27/2018 [facility] HEMATOLOGY Eosinophils 2.0 0.0 - 4.0 02/27/2018 [facility] HEMATOLOGY Lymphocytes 26.5 20.0 - 40.0 02/27/2018 [facility] HEMATOLOGY Monocytes 11.6 2.0 - 12.0 02/27/2018 [facility] HEMATOLOGY Segs 58.9 45.0 - 75.0 02/27/2018 [facility] HEMATOLOGY MCHC 32.6 32.0 - 36.0 02/27/2018 [facility] HEMATOLOGY MPV 6.9 7.4 - 10.4 02/27/2018 [facility] HEMATOLOGY Platelet 382 133 - 450 02/27/2018 [facility] HEMATOLOGY RDW 16.5 11.5 - 14.5 02/27/2018 [facility] HEMATOLOGY MCH 29.5 27.0 - 31.0 02/27/2018 [facility] HEMATOLOGY MCV 90.4 80.0 - 98.0 02/27/2018 [facility] HEMATOLOGY RBC 3.24 4.20 - 5.40 02/27/2018 [facility] HEMATOLOGY WBC 8.8 3.7 - 10.4 02/27/2018 [facility] HEMATOLOGY Hct 29.3 36.0 - 48.0 02/27/2018 [facility] HEMATOLOGY Hgb 9.6 12.0 - 16.0 02/27/2018 [facility] HEMATOLOGY MCV 88.6 80.0 - 98.0 02/26/2018 [facility] HEMATOLOGY MCH 29.8 27.0 - 31.0 02/26/2018 [facility] HEMATOLOGY MCHC 33.7 32.0 - 36.0 02/26/2018 [facility] HEMATOLOGY MPV 6.5 7.4 - 10.4 02/26/2018 [facility] HEMATOLOGY Hct 25.7 36.0 - 48.0 02/26/2018 [facility] HEMATOLOGY Platelet 432 133 - 450 02/26/2018 [facility] HEMATOLOGY RDW 16.1 11.5 - 14.5 02/26/2018 [facility] HEMATOLOGY WBC 9.9 3.7 - 10.4 02/26/2018 [facility] HEMATOLOGY RBC 2.91 4.20 - 5.40 02/26/2018 [facility] HEMATOLOGY Hgb 8.7 12.0 - 16.0 02/26/2018 [facility] LIPIDS Chol 106 <=199 mg/dL 02/26/2018 [facility] LIPIDS Trig 220 <=149 mg/dL 02/26/2018 [facility] LIPIDS HDL 34 >=61 mg/dL 02/26/2018 [facility] LIPIDS LDL (Calculated) 28 <=99 mg/dL 02/26/2018 [facility] LIPIDS VLDL 44 02/26/2018 [facility] LIPIDS CHD Risk 3.12 3.90 - 5.80 02/26/2018 [facility] SPECIAL CHEMISTRY Hgb A1C 6.6 <=5.6 % 02/26/2018 [facility] URINE AND STOOL UA RBC 132 0 - 2 02/26/2018 [facility] URINE AND STOOL UA Sq Epi Many /LPF Few /LPF 02/26/2018 [facility] URINE AND STOOL UA WBC >182 0 - 5 02/26/2018 [facility] URINE AND STOOL UA Bacteria Occasional /HPF None Seen /HPF 02/26/2018 [facility] URINE AND STOOL UA Mucus Few /LPF None Seen /LPF 02/26/2018 [facility] URINE AND STOOL UA Nitrite Negative (02/25/18 11:35 PM) Negative 02/26/2018 [facility] URINE AND STOOL UA Leuk Est Small *ABN* (02/25/18 11:35 PM) Negative 02/26/2018 [facility] URINE AND STOOL UA Urobilinogen 0.2 0.1 - 1.0 02/26/2018 [facility] URINE AND STOOL UA Protein 100 mg/dL Negative mg/dL 02/26/2018 [facility] URINE AND STOOL UA Color Yellow *NA* (02/25/18 11:35 PM) Yellow 02/26/2018 [facility] URINE AND STOOL UA Turbidity Cloudy *ABN* (02/25/18 11:35 PM) Clear 02/26/2018 [facility] URINE AND STOOL UA pH 5.5 5.0 - 8.0 02/26/2018 [facility] URINE AND STOOL UA Spec Grav >=1.030 *ABN* (02/25/18 11:35 PM) <=1.030 02/26/2018 [facility] URINE AND STOOL UA Blood Large *ABN* (02/25/18 11:35 PM) Negative 02/26/2018 [facility] URINE AND STOOL UA Glucose 100 mg/dL Negative mg/dL 02/26/2018 [facility] URINE AND STOOL UA Bili Moderate *ABN* (02/25/18 11:35 PM) Negative 02/26/2018 [facility] URINE AND STOOL UA Ketones Trace *ABN* (02/25/18 11:35 PM) Negative 02/26/2018 [facility] URINE CHEM U Creatinine 213.00 02/26/2018 [facility] URINE CHEM U Sodium 6 02/26/2018 [facility] Culture: Urine Specimen contains 3 or more potential pathogens; recommend correlation with urinalysis; if catheterized specimen recommend removal and recollection. If clinical situation warrants please call the laboratory for further testing. [place] [facility] [phone]. 02/26/2018 [facility] HEMATOLOGY Monocytes # 0.9 0.0 - 0.8 02/26/2018 [facility] HEMATOLOGY Basophils # 0.1 0.0 - 0.2 02/26/2018 [facility] HEMATOLOGY Lymphocytes # 1.7 1.0 - 5.5 02/26/2018 [facility] HEMATOLOGY Neutrophils # 10.8 1.5 - 8.1 02/26/2018 [facility] HEMATOLOGY Basophils 0.6 0.0 - 1.0 02/26/2018 [facility] HEMATOLOGY RBC Morph Normal (02/25/18 6:29 PM) 02/26/2018 [facility] HEMATOLOGY Plt Morph Normal (02/25/18 6:29 PM) 02/26/2018 [facility] HEMATOLOGY Segs 80.6 45.0 - 75.0 02/26/2018 [facility] Monocytes 6.4 2.0 - 12.0 02/26/2018 [facility] HEMATOLOGY Eosinophils 0.1 0.0 - 4.0 02/26/2018 [facility] Lymphocytes 12.3 20.0 - 40.0 02/26/2018 [facility] CHEM PANEL A/G Ratio 0.5 0.7 - 1.6 02/25/2018 [facility] CHEM PANEL Albumin Lvl 2.1 3.5 - 5.0 02/25/2018 [facility] CHEM PANEL Globulin 4.5 2.7 - 4.2 02/25/2018 [facility] CHEM PANEL Total Protein 6.6 6.4 - 8.4 02/25/2018 [facility] CHEM PANEL AST 22 0 - 37 02/25/2018 [facility] CHEM PANEL Alk Phos 70 39 - 136 02/25/2018 [facility] CHEM PANEL Bili Total 0.3 0.2 - 1.3 02/25/2018 [facility] CHEM PANEL ALT 11 0 - 65 02/25/2018 [facility] CHEM PANEL B/C Ratio 20 6 - 25 02/25/2018 [facility] CHEM PANEL Lactic Acid Lvl 1.1 0.5 - 2.2 02/25/2018 [facility] CHEM PANEL Procalcitonin Lvl 0.30 0.00 - 0.10 02/25/2018 [facility] URINE AND STOOL UA Protein 100 mg/dL Negative mg/dL 02/25/2018 [facility] URINE AND STOOL UA Glucose Negative (02/25/18 3:19 PM) Negative 02/25/2018 [facility] URINE AND STOOL UA Bili Small *ABN* (02/25/18 3:19 PM) Negative 02/25/2018 [facility] URINE AND STOOL UA Urobilinogen 0.2 0.1 - 1.0 02/25/2018 [facility] URINE AND STOOL UA Ketones Trace *ABN* (02/25/18 3:19 PM) Negative 02/25/2018 [facility] URINE AND STOOL UA Blood Moderate *ABN* (02/25/18 3:19 PM) Negative 02/25/2018 [facility] URINE AND STOOL UA Turbidity Marked *ABN* (02/25/18 3:19 PM) Clear 02/25/2018 [facility] URINE AND STOOL UA Spec Grav >=1.030 *ABN* (02/25/18 3:19 PM) <=1.030 02/25/2018 [facility] URINE AND STOOL UA pH 5.5 5.0 - 8.0 02/25/2018 [facility] URINE AND STOOL UA Bacteria Moderate /HPF None Seen /HPF 02/25/2018 [facility] URINE AND STOOL UA Mucus Few /LPF None Seen /LPF 02/25/2018 [facility] URINE AND STOOL UA WBC >182 /HPF 0 - 5 02/25/2018 [facility] URINE AND STOOL UA Leuk Est Moderate *ABN* (02/25/18 3:19 PM) Negative 02/25/2018 [facility] URINE AND STOOL UA Sq Epi Occasional /LPF Few /LPF 02/25/2018 [facility] URINE AND STOOL UA Nitrite Negative (02/25/18 3:19 PM) Negative 02/25/2018 [facility] URINE AND STOOL UA RBC 3-5 /HPF 0 - 2 02/25/2018 [facility] URINE AND STOOL UA Color See Note 6 (02/25/18 3:19 PM) Yellow 02/25/2018 Result Comment: Urine color is white(mucus)on 02/25/2018 16:39 by Jerome. [facility] CHEM PANEL Lipase Lvl 78 73 - 393 02/25/2018 [facility] CHEM PANEL Amylase Lvl 24 25 - 115 02/25/2018 [facility] HEMATOLOGY PTT 39.4 22.9 - 35.8 02/25/2018 [facility] HEMATOLOGY INR 1.20 0.85 - 1.17 02/25/2018 [facility] HEMATOLOGY PT 15.0 12.0 - 14.7 02/25/2018 [facility] HEMATOLOGY Basophils # 0.1 0.0 - 0.2 02/25/2018 [facility] HEMATOLOGY Lymphocytes # 1.6 1.0 - 5.5 02/25/2018 [facility] [facility] HEMATOLOGY Eosinophils # 0.1 0.0 - 0.5 02/25/2018 [facility] HEMATOLOGY Monocytes # 1.2 0.0 - 0.8 02/25/2018 [facility] HEMATOLOGY Neutrophils # 13.7 1.5 - 8.1 02/25/2018 [facility] HEMATOLOGY Basophils 0.7 0.0 - 1.0 02/25/2018 [facility] HEMATOLOGY Eosinophils 0.4 0.0 - 4.0 02/25/2018 [facility] HEMATOLOGY Lymphocytes 9.4 20.0 - 40.0 02/25/2018 [facility] HEMATOLOGY Segs 82.5 45.0 - 75.0 02/25/2018 [facility] HEMATOLOGY Monocytes 7.0 2.0 - 12.0 02/25/2018 [facility] CHEM PANEL AST 21 0 - 37 02/25/2018 [facility] CHEM PANEL Alk Phos 87 39 - 136 02/25/2018 [facility] CHEM PANEL Bili Total 0.4 0.2 - 1.3 02/25/2018 [facility] CHEM PANEL ALT 13 0 - 65 02/25/2018 [facility] CHEM PANEL A/G Ratio 0.5 0.7 - 1.6 02/25/2018 [facility] CHEM PANEL B/C Ratio 17 6 - 25 02/25/2018 [facility] CHEM PANEL Total Protein 8.4 6.4 - 8.4 02/25/2018 [facility] CHEM PANEL Albumin Lvl 2.8 3.5 - 5.0 02/25/2018 [facility] CHEM PANEL Globulin 5.6 2.7 - 4.2 02/25/2018 [facility] ELECTROLYTES AGAP 15.6 10.0 - 20.0 02/13/2018 [facility] ELECTROLYTES Calcium Lvl 6.9 8.5 - 10.5 02/13/2018 Result Comment: Critical Result(s) called to Ilana Aguayo at 02/13/2018 07:53 by DMF. Read back OK. [facility] ELECTROLYTES Creatinine Lvl 1.10 0.50 - 1.40 02/13/2018 [facility] ELECTROLYTES Sodium Lvl 144 135 - 145 02/13/2018 [facility] ELECTROLYTES Potassium Lvl 3.6 3.5 - 5.1 02/13/2018 [facility] ELECTROLYTES CO2 19 24 - 32 02/13/2018 [facility] ELECTROLYTES Chloride Lvl 113 95 - 109 02/13/2018 [facility] ELECTROLYTES Glucose Lvl 299 70 - 99 02/13/2018 [facility] ELECTROLYTES BUN 11 7 - 22 02/13/2018 [facility] ELECTROLYTES eGFR 52 02/13/2018 Result Comment: The eGFR is calculated using [...] should be multiplied by the estimated BMI. [facility] CHEM PANEL Phosphorus 2.9 2.5 - 4.5 02/11/2018 [facility] CHEM PANEL eGFR 61 02/11/2018 Result Comment: The eGFR is calculated using [...] should be multiplied by the estimated BMI. [facility] CHEM PANEL Chloride Lvl 118 95 - 109 02/11/2018 [facility] CHEM PANEL Potassium Lvl 3.6 3.5 - 5.1 02/11/2018 [facility] CHEM PANEL AGAP 12.6 10.0 - 20.0 02/11/2018 [facility] CHEM PANEL CO2 15 24 - 32 02/11/2018 [facility] CHEM PANEL Calcium Lvl 6.5 8.5 - 10.5 02/11/2018 Result Comment: Critical Result(s) called to kelly mccloud at 02/11/2018 07:06 by EFA. Read back OK. [facility] CHEM PANEL Glucose Lvl 80 70 - 99 02/11/2018 [facility] CHEM PANEL Sodium Lvl 142 135 - 145 02/11/2018 [facility] CHEM PANEL Creatinine Lvl 0.96 0.50 - 1.40 02/11/2018 [facility] CHEM PANEL BUN 8 7 - 22 02/11/2018 [facility] HEMATOLOGY Monocytes # 0.7 0.0 - 0.8 02/11/2018 [facility] HEMATOLOGY Eosinophils # 0.2 0.0 - 0.5 02/11/2018 [facility] HEMATOLOGY Segs 56.2 45.0 - 75.0 02/11/2018 [facility] HEMATOLOGY Lymphocytes 30.3 20.0 - 40.0 02/11/2018 [facility] HEMATOLOGY Monocytes 10.1 2.0 - 12.0 02/11/2018 [facility] HEMATOLOGY Eosinophils 2.9 0.0 - 4.0 02/11/2018 [facility] HEMATOLOGY Neutrophils # 3.9 1.5 - 8.1 02/11/2018 [facility] HEMATOLOGY Basophils 0.5 0.0 - 1.0 02/11/2018 [facility] HEMATOLOGY Lymphocytes # 2.1 1.0 - 5.5 02/11/2018 [facility] HEMATOLOGY MPV 7.0 7.4 - 10.4 02/11/2018 [facility] HEMATOLOGY MCHC 33.0 32.0 - 36.0 02/11/2018 [facility] HEMATOLOGY RDW 15.4 11.5 - 14.5 02/11/2018 [facility] HEMATOLOGY Platelet 264 133 - 450 02/11/2018 [facility] HEMATOLOGY WBC 7.0 3.7 - 10.4 02/11/2018 [facility] HEMATOLOGY RBC 2.55 4.20 - 5.40 02/11/2018 [facility] HEMATOLOGY Hgb 7.5 12.0 - 16.0 02/11/2018 [facility] HEMATOLOGY Hct 22.6 36.0 - 48.0 02/11/2018 [facility] HEMATOLOGY MCV 88.6 80.0 - 98.0 02/11/2018 [facility] HEMATOLOGY MCH 29.3 27.0 - 31.0 02/11/2018 [facility] URINE AND STOOL UA pH 6.0 5.0 - 8.0 02/08/2018 [facility] URINE AND STOOL UA Urobilinogen <=1.0 mg/dL 0.1 - 1.0 02/08/2018 [facility] URINE AND STOOL UA Spec Grav 1.017 <=1.030 02/08/2018 [facility] URINE AND STOOL UA Turbidity Marked *ABN* (02/07/18 10:19 PM) Clear 02/08/2018 [facility] URINE AND STOOL UA Color Yellow *NA* (02/07/18 10:19 PM) Yellow 02/08/2018 [facility] URINE AND STOOL UA Blood Negative (02/07/18 10:19 PM) Negative 02/08/2018 [facility] URINE AND STOOL UA Glucose 50 mg/dL Negative mg/dL 02/08/2018 [facility] URINE AND STOOL UA Ketones Negative *NA* (02/07/18 10:19 PM) Negative 02/08/2018 [facility] URINE AND STOOL UA Protein >=300 mg/dL Negative mg/dL 02/08/2018 [facility] URINE AND STOOL UA Bili Negative *NA* (02/07/18 10:19 PM) Negative 02/08/2018 [facility] URINE AND STOOL UA Leuk Est Large *ABN* (02/07/18 10:19 PM) Negative 02/08/2018 [facility] URINE AND STOOL Micro? Performed (02/07/18 10:19 PM) 02/08/2018 [facility] URINE AND STOOL UA Nitrite Negative (02/07/18 10:19 PM) Negative 02/08/2018 [facility] URINE AND STOOL UA Sq Epi Occasional /LPF Few /LPF 02/08/2018 [facility] URINE AND STOOL UA Bacteria Few /HPF None Seen /HPF 02/08/2018 [facility] URINE AND STOOL UA RBC 10 0 - 2 02/08/2018 [facility] URINE AND STOOL UA WBC >182 0 - 5 02/08/2018 [facility] Culture: Urine No Growth 02/08/2018 [facility] CHEM PANEL eGFR 38 02/05/2018 Result Comment: The eGFR is calculated using [...] should be multiplied by the estimated BMI. [facility] CHEM PANEL BUN 13 7 - 22 02/05/2018 [facility] CHEM PANEL Creatinine Lvl 1.42 0.50 - 1.40 02/05/2018 [facility] CHEM PANEL Glucose Lvl 112 70 - 99 02/05/2018 [facility] CHEM PANEL Calcium Lvl 7.6 8.5 - 10.5 02/05/2018 [facility] CHEM PANEL Sodium Lvl 140 135 - 145 02/05/2018 [facility] CHEM PANEL Potassium Lvl 3.6 3.5 - 5.1 02/05/2018 [facility] CHEM PANEL AGAP 13.6 10.0 - 20.0 02/05/2018 [facility] CHEM PANEL CO2 28 24 - 32 02/05/2018 [facility] CHEM PANEL Chloride Lvl 102 95 - 109 02/05/2018 [facility] HEMATOLOGY WBC 7.6 3.7 - 10.4 02/04/2018 [facility] HEMATOLOGY RBC 2.76 4.20 - 5.40 02/04/2018 [facility] MCHC 33.5 32.0 - 36.0 02/04/2018 [facility] MCH 29.4 27.0 - 31.0 02/04/2018 [facility] Hct 24.2 36.0 - 48.0 02/04/2018 [facility] HEMATOLOGY Hgb 8.1 12.0 - 16.0 02/04/2018 [facility] MCV 87.8 80.0 - 98.0 02/04/2018 [facility] RDW 14.8 11.5 - 14.5 02/04/2018 [facility] Platelet 355 133 - 450 02/04/2018 [facility] MPV 6.9 7.4 - 10.4 02/04/2018 [facility] Lymphocytes # 1.7 1.0 - 5.5 02/04/2018 [facility] Monocytes # 0.5 0.0 - 0.8 02/04/2018 [facility] HEMATOLOGY Basophils 0.6 0.0 - 1.0 02/04/2018 [facility] HEMATOLOGY Neutrophils # 5.2 1.5 - 8.1 02/04/2018 [facility] HEMATOLOGY Lymphocytes 22.7 20.0 - 40.0 02/04/2018 [facility] HEMATOLOGY Monocytes 6.9 2.0 - 12.0 02/04/2018 [facility] HEMATOLOGY Segs 68.6 45.0 - 75.0 02/04/2018 [facility] HEMATOLOGY Eosinophils 1.2 0.0 - 4.0 02/04/2018 [facility] HEMATOLOGY Eosinophils # 0.1 0.0 - 0.5 02/04/2018 [facility] URINE CHEM U Creatinine 114.00 02/01/2018 [facility] URINE CHEM U Sodium 10 02/01/2018 [facility] HEMATOLOGY MPV 7.8 7.4 - 10.4 02/01/2018 [facility] HEMATOLOGY Platelet 303 133 - 450 02/01/2018 [facility] HEMATOLOGY Hgb 8.1 12.0 - 16.0 02/01/2018 [facility] HEMATOLOGY Hct 24.4 36.0 - 48.0 02/01/2018 [facility] HEMATOLOGY WBC 11.4 3.7 - 10.4 02/01/2018 [facility] HEMATOLOGY RBC 2.72 4.20 - 5.40 02/01/2018 [facility] HEMATOLOGY MCV 89.7 80.0 - 98.0 02/01/2018 [facility] HEMATOLOGY MCH 29.8 27.0 - 31.0 02/01/2018 [facility] HEMATOLOGY MCHC 33.3 32.0 - 36.0 02/01/2018 [facility] HEMATOLOGY RDW 15.5 11.5 - 14.5 02/01/2018 [facility] HEMATOLOGY Basophils # 0.1 0.0 - 0.2 02/01/2018 [facility] HEMATOLOGY Eosinophils # 0.2 0.0 - 0.5 02/01/2018 [facility] HEMATOLOGY Neutrophils # 8.2 1.5 - 8.1 02/01/2018 [facility] HEMATOLOGY Lymphocytes # 2.1 1.0 - 5.5 02/01/2018 [facility] HEMATOLOGY Monocytes # 0.8 0.0 - 0.8 02/01/2018 [facility] HEMATOLOGY Basophils 1.2 0.0 - 1.0 02/01/2018 [facility] HEMATOLOGY Eosinophils 1.5 0.0 - 4.0 02/01/2018 [facility] HEMATOLOGY Lymphocytes 18.5 20.0 - 40.0 02/01/2018 [facility] HEMATOLOGY Monocytes 6.7 2.0 - 12.0 02/01/2018 [facility] HEMATOLOGY Segs 72.1 45.0 - 75.0 02/01/2018 [facility] CHEM PANEL Magnesium Lvl 2.5 1.8 - 2.4 01/27/2018 [facility] CHEM PANEL Phosphorus 3.4 2.5 - 4.5 01/27/2018 [facility] CHEM PANEL Magnesium Lvl 1.5 1.8 - 2.4 01/26/2018 [facility] CHEM PANEL Phosphorus 2.1 2.5 - 4.5 01/26/2018 [facility] CHEM PANEL Magnesium Lvl 1.6 1.8 - 2.4 01/25/2018 [facility] LIPIDS Trig 361 <=149 mg/dL 01/25/2018 [facility] HEMATOLOGY Basophils # 0.1 0.0 - 0.2 01/24/2018 [facility] HEMATOLOGY Plt Morph Normal (01/23/18 6:15 AM) 01/23/2018 [facility] HEMATOLOGY RBC Morph Normal (01/23/18 6:15 AM) 01/23/2018 [facility] HEMATOLOGY INR 1.16 0.85 - 1.17 01/22/2018 [facility] HEMATOLOGY PT 14.6 12.0 - 14.7 01/22/2018 [facility] HEMATOLOGY PTT 29.1 22.9 - 35.8 01/22/2018 [facility] CHEM PANEL Lipase Lvl 345 73 - 393 01/22/2018 [facility] CHEM PANEL Alk Phos 79 39 - 136 01/22/2018 [facility] CHEM PANEL ALT 11 0 - 65 01/22/2018 [facility] CHEM PANEL Bili Total 0.6 0.2 - 1.3 01/22/2018 [facility] CHEM PANEL AST 13 0 - 37 01/22/2018 [facility] CHEM PANEL A/G Ratio 0.6 0.7 - 1.6 01/22/2018 [facility] CHEM PANEL B/C Ratio 17 6 - 25 01/22/2018 [facility] CHEM PANEL Albumin Lvl 2.7 3.5 - 5.0 01/22/2018 [facility] CHEM PANEL Total Protein 7.4 6.4 - 8.4 01/22/2018 [facility] CHEM PANEL Globulin 4.7 2.7 - 4.2 01/22/2018 [facility] URINE AND STOOL UA Nitrite Negative (01/21/18 3:14 PM) Negative 01/21/2018 [facility] URINE AND STOOL UA Urobilinogen <=1.0 mg/dL 0.1 - 1.0 01/21/2018 [facility] URINE AND STOOL UA Blood Small *ABN* (01/21/18 3:14 PM) Negative 01/21/2018 [facility] URINE AND STOOL UA Protein 100 mg/dL Negative mg/dL 01/21/2018 [facility] URINE AND STOOL UA Glucose 150 mg/dL Negative mg/dL 01/21/2018 [facility] URINE AND STOOL Micro? Performed (01/21/18 3:14 PM) 01/21/2018 [facility] URINE AND STOOL UA Leuk Est Large *ABN* (01/21/18 3:14 PM) Negative 01/21/2018 [facility] URINE AND STOOL UA Color Maggy 01/21/2018 [facility] URINE AND STOOL UA Bili Negative *NA* (01/21/18 3:14 PM) Negative 01/21/2018 [facility] URINE AND STOOL UA Ketones Trace *ABN* (01/21/18 3:14 PM) Negative 01/21/2018 [facility] URINE AND STOOL UA pH 5.0 5.0 - 8.0 01/21/2018 [facility] URINE AND STOOL UA Spec Grav 1.013 <=1.030 01/21/2018 [facility] URINE AND STOOL UA Turbidity Marked *ABN* (01/21/18 3:14 PM) Clear 01/21/2018 [facility] URINE AND STOOL UA Mucus Few /LPF None Seen /LPF 01/21/2018 [facility] URINE AND STOOL UA [place] Yeast Many /HPF None Seen /HPF 01/21/2018 [facility] URINE AND STOOL UA RBC 52 0 - 2 01/21/2018 [facility] URINE AND STOOL UA WBC >182 0 - 5 01/21/2018 [facility] URINE AND STOOL UA Sq Epi Occasional /LPF Few /LPF 01/21/2018 [facility] URINE CHEM U Creatinine 114.00 01/21/2018 [facility] URINE CHEM U Sodium 41 01/21/2018 [facility] CARDIAC ENZYMES BNP 53 <=100 pg/mL 01/21/2018 [facility] HEMATOLOGY INR 1.24 0.85 - 1.17 01/21/2018 [facility] HEMATOLOGY PT 15.4 12.0 - 14.7 01/21/2018 [facility] HEMATOLOGY PTT 35.1 22.9 - 35.8 01/21/2018 [facility] URINE AND STOOL UA RBC 4 0 - 2 01/21/2018 [facility] URINE AND STOOL UA Sq Epi Many /LPF Few /LPF 01/21/2018 [facility] URINE AND STOOL UA Mucus Few /LPF None Seen /LPF 01/21/2018 [facility] URINE AND STOOL UA WBC 2 0 - 5 01/21/2018 [facility] URINE AND STOOL UA Glucose Negative (01/21/18 6:50 AM) Negative 01/21/2018 [facility] URINE AND STOOL UA Protein Negative (01/21/18 6:50 AM) Negative 01/21/2018 [facility] URINE AND STOOL UA Ketones Negative *NA* (01/21/18 6:50 AM) Negative 01/21/2018 [facility] URINE AND STOOL UA Spec Grav 1.020 <=1.030 01/21/2018 [facility] URINE AND STOOL UA Turbidity Slight *ABN* (01/21/18 6:50 AM) Clear 01/21/2018 [facility] URINE AND STOOL UA pH 6.5 5.0 - 8.0 01/21/2018 [facility] URINE AND STOOL UA Leuk Est Negative (01/21/18 6:50 AM) Negative 01/21/2018 [facility] URINE AND STOOL UA Nitrite Negative (01/21/18 6:50 AM) Negative 01/21/2018 [facility] URINE AND STOOL UA Bili Negative *NA* (01/21/18 6:50 AM) Negative 01/21/2018 [facility] URINE AND STOOL UA Blood Negative (01/21/18 6:50 AM) Negative 01/21/2018 [facility] URINE AND STOOL UA Urobilinogen 0.2 0.1 - 1.0 01/21/2018 Result Comment: Urobilinogen performed on the [employer] analyzer. 01/21/2018 07:27 [email or web address] [facility] URINE AND STOOL UA Color Yellow *NA* (01/21/18 6:50 AM) Yellow 01/21/2018 [facility] CARDIAC ENZYMES Troponin-I <0.02 0.00 - 0.40 01/21/2018 [facility] CHEM PANEL Lipase Lvl 577 73 - 393 01/21/2018 [facility] CHEM PANEL Albumin Lvl 3.2 3.5 - 5.0 01/21/2018 [facility] CHEM PANEL Total Protein 8.7 6.4 - 8.4 01/21/2018 [facility] CHEM PANEL Alk Phos 104 39 - 136 01/21/2018 [facility] CHEM PANEL AST 14 0 - 37 01/21/2018 [facility] CHEM PANEL ALT 15 0 - 65 01/21/2018 [facility] CHEM PANEL Bili Total 0.4 0.2 - 1.3 01/21/2018 [facility] CHEM PANEL A/G Ratio 0.6 0.7 - 1.6 01/21/2018 [facility] CHEM PANEL Globulin 5.5 2.7 - 4.2 01/21/2018 [facility] CHEM PANEL B/C Ratio 14 6 - 25 01/21/2018 [facility] HEMATOLOGY Plt Morph Normal (01/21/18 6:39 AM) 01/21/2018 [facility] HEMATOLOGY RBC Morph Normal (01/21/18 6:39 AM) 01/21/2018 [facility] ELECTROLYTES Sodium Lvl 134 135 - 145 01/10/2018 [facility] ELECTROLYTES Potassium Lvl 4.3 3.5 - 5.1 01/10/2018 [facility] ELECTROLYTES Chloride Lvl 99 95 - 109 01/10/2018 [facility] ELECTROLYTES Creatinine Lvl 1.99 0.50 - 1.40 01/10/2018 [facility] ELECTROLYTES Glucose Lvl 126 70 - 99 01/10/2018 [facility] ELECTROLYTES BUN 51 7 - 22 01/10/2018 [facility] ELECTROLYTES eGFR 25 01/10/2018 Result Comment: The eGFR is calculated using [...] should be multiplied by the estimated BMI. [facility] ELECTROLYTES CO2 25 24 - 32 01/10/2018 [facility] ELECTROLYTES AGAP 14.3 10.0 - 20.0 01/10/2018 [facility] ELECTROLYTES Calcium Lvl 9.0 8.5 - 10.5 01/10/2018 [facility] MPV 6.8 7.4 - 10.4 01/10/2018 [facility] Hgb 8.7 12.0 - 16.0 01/10/2018 [facility] Hct 26.8 36.0 - 48.0 01/10/2018 [facility] WBC 8.4 3.7 - 10.4 01/10/2018 [facility] Platelet 345 133 - 450 01/10/2018 [facility] RDW 17.9 11.5 - 14.5 01/10/2018 [facility] MCHC 32.5 32.0 - 36.0 01/10/2018 [facility] MCV 89.7 80.0 - 98.0 01/10/2018 [facility] MCH 29.1 27.0 - 31.0 01/10/2018 [facility] RBC 2.99 4.20 - 5.40 01/10/2018 [facility] CHEM PANEL eGFR 38 01/09/2018 Result Comment: The eGFR is calculated using [...] should be multiplied by the estimated BMI. [facility] CHEM PANEL Chloride Lvl 100 95 - 109 01/09/2018 [facility] CHEM PANEL Potassium Lvl 4.1 3.5 - 5.1 01/09/2018 [facility] CHEM PANEL AGAP 14.1 10.0 - 20.0 01/09/2018 [facility] CHEM PANEL CO2 26 24 - 32 01/09/2018 [facility] CHEM PANEL Calcium Lvl 8.4 8.5 - 10.5 01/09/2018 [facility] CHEM PANEL Glucose Lvl 191 70 - 99 01/09/2018 [facility] CHEM PANEL Sodium Lvl 136 135 - 145 01/09/2018 [facility] CHEM PANEL Creatinine Lvl 1.41 0.50 - 1.40 01/09/2018 [facility] CHEM PANEL BUN 47 7 - 22 01/09/2018 [facility] CHEM PANEL eGFR 39 01/08/2018 Result Comment: The eGFR is calculated using [...] should be multiplied by the estimated BMI. [facility] CHEM PANEL Calcium Lvl 8.1 8.5 - 10.5 01/08/2018 [facility] CHEM PANEL CO2 28 24 - 32 01/08/2018 [facility] CHEM PANEL Chloride Lvl 96 95 - 109 01/08/2018 [facility] CHEM PANEL Sodium Lvl 134 135 - 145 01/08/2018 [facility] CHEM PANEL Potassium Lvl 3.6 3.5 - 5.1 01/08/2018 [facility] CHEM PANEL BUN 57 7 - 22 01/08/2018 [facility] CHEM PANEL Creatinine Lvl 1.38 0.50 - 1.40 01/08/2018 [facility] CHEM PANEL Glucose Lvl 159 70 - 99 01/08/2018 [facility] CHEM PANEL AGAP 13.6 10.0 - 20.0 01/08/2018 [facility] CHEM PANEL Magnesium Lvl 1.9 1.8 - 2.4 01/08/2018 [facility] CHEM PANEL Phosphorus 4.0 2.5 - 4.5 01/08/2018 [facility] HEMATOLOGY Monocytes # 0.5 0.0 - 0.8 01/08/2018 [facility] HEMATOLOGY Neutrophils # 4.4 1.5 - 8.1 01/08/2018 [facility] HEMATOLOGY Eosinophils # 0.2 0.0 - 0.5 01/08/2018 [facility] HEMATOLOGY Lymphocytes # 2.3 1.0 - 5.5 01/08/2018 [facility] HEMATOLOGY Segs 58.4 45.0 - 75.0 01/08/2018 [facility] HEMATOLOGY Monocytes 6.9 2.0 - 12.0 01/08/2018 [facility] HEMATOLOGY Basophils 0.6 0.0 - 1.0 01/08/2018 [facility] HEMATOLOGY Lymphocytes 30.9 20.0 - 40.0 01/08/2018 [facility] HEMATOLOGY Eosinophils 3.2 0.0 - 4.0 01/08/2018 [facility] HEMATOLOGY Hgb 8.0 12.0 - 16.0 01/08/2018 [facility] HEMATOLOGY RBC 2.70 4.20 - 5.40 01/08/2018 [facility] HEMATOLOGY MCV 89.0 80.0 - 98.0 01/08/2018 [facility] HEMATOLOGY Hct 24.0 36.0 - 48.0 01/08/2018 [facility] HEMATOLOGY WBC 7.6 3.7 - 10.4 01/08/2018 [facility] MCH 29.6 27.0 - 31.0 01/08/2018 [facility] HEMATOLOGY RDW 18.0 11.5 - 14.5 01/08/2018 [facility] HEMATOLOGY MPV 7.4 7.4 - 10.4 01/08/2018 [facility] MCHC 33.2 32.0 - 36.0 01/08/2018 [facility] HEMATOLOGY Platelet 301 133 - 450 01/08/2018 [facility] CHEM PANEL Magnesium Lvl 2.2 1.8 - 2.4 01/07/2018 [facility] CHEM PANEL Phosphorus 5.6 2.5 - 4.5 01/07/2018 [facility] HEMATOLOGY Lymphocytes 26.3 20.0 - 40.0 01/07/2018 [facility] HEMATOLOGY Segs 62.3 45.0 - 75.0 01/07/2018 [facility] HEMATOLOGY Eosinophils 2.3 0.0 - 4.0 01/07/2018 [facility] HEMATOLOGY Monocytes 8.3 2.0 - 12.0 01/07/2018 [facility] HEMATOLOGY Basophils # 0.1 0.0 - 0.2 01/07/2018 [facility] HEMATOLOGY Neutrophils # 6.0 1.5 - 8.1 01/07/2018 [facility] HEMATOLOGY Eosinophils # 0.2 0.0 - 0.5 01/07/2018 [facility] HEMATOLOGY Lymphocytes # 2.5 1.0 - 5.5 01/07/2018 [facility] HEMATOLOGY Basophils 0.8 0.0 - 1.0 01/07/2018 [facility] HEMATOLOGY Monocytes # 0.8 0.0 - 0.8 01/07/2018 [facility] HEMATOLOGY RBC 2.77 4.20 - 5.40 01/07/2018 [facility] MCH 30.0 27.0 - 31.0 01/07/2018 [facility] HEMATOLOGY RDW 17.9 11.5 - 14.5 01/07/2018 [facility] HEMATOLOGY Platelet 285 133 - 450 01/07/2018 [facility] MCHC 33.8 32.0 - 36.0 01/07/2018 [facility] HEMATOLOGY MCV 88.8 80.0 - 98.0 01/07/2018 [facility] Hct 24.6 36.0 - 48.0 01/07/2018 [facility] Hgb 8.3 12.0 - 16.0 01/07/2018 [facility] MPV 6.7 7.4 - 10.4 01/07/2018 [facility] WBC 9.6 3.7 - 10.4 01/07/2018 [facility] CHEM PANEL Phosphorus 3.9 2.5 - 4.5 01/06/2018 [facility] CHEM PANEL Magnesium Lvl 2.0 1.8 - 2.4 01/06/2018 [facility] LIPIDS Trig 408 <=149 mg/dL 01/06/2018 [facility] Culture: Urine Specimen contains 3 or more potential pathogens; recommend correlation with urinalysis; if catheterized specimen recommend removal and recollection. If clinical situation warrants please call the laboratory for further testing. [facility] [phone]. 01/03/2018 [facility] URINE AND STOOL UA Glucose Negative *NA* (01/02/18 6:44 AM) Negative 01/02/2018 [facility] URINE AND STOOL UA pH 5.0 5.0 - 8.0 01/02/2018 [facility] URINE AND STOOL UA Spec Grav 1.014 <=1.030 01/02/2018 [facility] URINE AND STOOL UA Color Yellow *NA* (01/02/18 6:44 AM) Yellow 01/02/2018 [facility] URINE AND STOOL UA Turbidity Marked *ABN* (01/02/18 6:44 AM) Clear 01/02/2018 [facility] URINE AND STOOL UA Protein >=300 mg/dL Negative mg/dL 01/02/2018 [facility] URINE AND STOOL UA Ketones Negative *NA* (01/02/18 6:44 AM) Negative 01/02/2018 [facility] URINE AND STOOL UA Bili Negative *NA* (01/02/18 6:44 AM) Negative 01/02/2018 [facility] URINE AND STOOL UA Bacteria Occasional /HPF None Seen /HPF 01/02/2018 [facility] URINE AND STOOL UA Mucus Few /LPF None Seen /LPF 01/02/2018 [facility] URINE AND STOOL UA WBC >182 0 - 5 01/02/2018 [facility] URINE AND STOOL UA RBC 2 0 - 2 01/02/2018 [facility] URINE AND STOOL UA Urobilinogen <=1.0 mg/dL 0.1 - 1.0 01/02/2018 [facility] URINE AND STOOL UA Nitrite Negative (01/02/18 6:44 AM) Negative 01/02/2018 [facility] URINE AND STOOL UA Blood Small *ABN* (01/02/18 6:44 AM) Negative 01/02/2018 [facility] URINE AND STOOL UA Trans Epi 11 <=0 /LPF 01/02/2018 [facility] URINE AND STOOL UA Leuk Est Large *ABN* (01/02/18 6:44 AM) Negative 01/02/2018 [facility] URINE AND STOOL UA Sq Epi Occasional /LPF Few /LPF 01/02/2018 [facility] URINE CHEM U Sodium 16 01/02/2018 [facility] URINE CHEM U Creatinine 156.00 01/02/2018 [facility] CHEM PANEL Albumin Lvl 2.4 3.5 - 5.0 01/02/2018 [facility] CHEM PANEL Total Protein 6.8 6.4 - 8.4 01/02/2018 [facility] CHEM PANEL B/C Ratio 12 6 - 25 01/02/2018 [facility] CHEM PANEL ALT 12 0 - 65 01/02/2018 [facility] CHEM PANEL A/G Ratio 0.5 0.7 - 1.6 01/02/2018 [facility] CHEM PANEL Globulin 4.4 2.7 - 4.2 01/02/2018 [facility] CHEM PANEL Alk Phos 99 39 - 136 01/02/2018 [facility] CHEM PANEL AST 11 0 - 37 01/02/2018 [facility] CHEM PANEL Bili Total 0.3 0.2 - 1.3 01/02/2018 [facility] HEMATOLOGY Basophils 0.8 0.0 - 1.0 01/02/2018 [facility] HEMATOLOGY Eosinophils 1.2 0.0 - 4.0 01/02/2018 [facility] HEMATOLOGY Lymphocytes # 2.2 1.0 - 5.5 01/02/2018 [facility] HEMATOLOGY Neutrophils # 6.9 1.5 - 8.1 01/02/2018 [facility] HEMATOLOGY Monocytes # 0.6 0.0 - 0.8 01/02/2018 [facility] HEMATOLOGY Basophils # 0.1 0.0 - 0.2 01/02/2018 [facility] HEMATOLOGY Eosinophils # 0.1 0.0 - 0.5 01/02/2018 [facility] HEMATOLOGY Lymphocytes 22.4 20.0 - 40.0 01/02/2018 [facility] Monocytes 6.2 2.0 - 12.0 01/02/2018 [facility] HEMATOLOGY Segs 69.4 45.0 - 75.0 01/02/2018 [facility] IMMUNOLOGY Prealbumin 13.9 18.0 - 45.0 01/02/2018 [facility] LIPIDS Trig 446 <=149 mg/dL 01/02/2018 [facility] CHEM PANEL Albumin Lvl 2.7 3.5 - 5.0 01/01/2018 [facility] CHEM PANEL Total Protein 7.9 6.4 - 8.4 01/01/2018 [facility] CHEM PANEL Alk Phos 118 39 - 136 01/01/2018 [facility] CHEM PANEL Bili Total 0.2 0.2 - 1.3 01/01/2018 [facility] CHEM PANEL AST 17 0 - 37 01/01/2018 [facility] CHEM PANEL ALT 16 0 - 65 01/01/2018 [facility] CHEM PANEL B/C Ratio 12 6 - 25 01/01/2018 [facility] CHEM PANEL A/G Ratio 0.5 0.7 - 1.6 01/01/2018 [facility] CHEM PANEL Globulin 5.2 2.7 - 4.2 01/01/2018 [facility] IMMUNOLOGY Prealbumin 15.3 18.0 - 45.0 01/01/2018 [facility] Pathology Reports No Data Provided for This Section Diagnostic Reports Report Value Date Source Retroperitoneal Complete US Clinical Indication: Renal insufficiency [...] Normal. IMPRESSION: Bilateral renal cortical atrophy. SL: BRANDI 02/25/2018 [facility] Abdomen/Pelvis wo IV contrast CT PROCEDURE: CT [...] 3. Small right renal cyst. END REPORT MADHAVI: [id number] 02/25/2018 [facility] Forearm 2 views DX Patient Name: JOSÉ MIGUEL MÉNDEZ : 1950; Age: 67 years y/o Female MR: [id number] * RIGHT FOREARM, 2 views History: Right forearm pain. Technique: Frontal and lateral radiographs of the right forearm were obtained. FINDINGS: There is no evidence of fracture, dislocation, or acute change. There are no destructive lesions or other osseous abnormalities. IMPRESSION: 1. Negative right forearm. SL: [id number] 02/08/2018 [facility] Ext Upper Venous Doppler Unilat US Clinical [...] Dr. Kim at the time of dictation. SL: ALBERTA 02/08/2018 [facility] Chest 1view DX Clinical Indication: - fever, tachycardia, chills. Comparison: 01/21/2018 Findings: Frontal view of the chest was obtained. Left internal jugular CVC tip projects over the superior cavoatrial junction. The cardiac silhouette is normal. Atheromatous changes are present in the aorta. There is no lobar consolidation, effusion or edema. No pneumothorax. No acute osseous abnormality. IMPRESSION: No acute cardiopulmonary abnormality. 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 Comparison: [...] A written informed consent was obtained. A 'time out' was performed per protocol prior to the [...] catheter utilizing ultrasound and fluoroscopic guidance. 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 . [...] noted. IMPRESSION: 1. No acute abnormality. SL: [id number] 01/21/2018 [facility] Chest/Abdomen/Pelvis wo IV contrast CT Patient Name: JOSÉ MIGUEL MÉNDEZ : 1950 Age: 67 years, Female MR: [id number] Study: Chest/Abdomen/Pelvis wo IV contrast CT 01/21/2018 7:58 TUBE CLOSING MACHINE OPERATOR Examination: CT chest, abdomen, and pelvis without [...] T8, T12, and L5 vertebral bodies. SL: [id number] 01/21/2018 [facility] Chest 1view DX CHEST RADIOGRAPH SINGLE VIEW INDICATION: Shortness of breath, vomiting COMPARISON: Chest radiograph 08/24/2015 IMPRESSION: No consolidation or other acute intrathoracic abnormalities are visualized. SL:16 01/21/2018 [facility] CVC Replacement VR Patient Name: JOSÉ MIGUEL MÉNDEZ : 1950 Age: 67 years Female MR: [id number] Study: CVC Replacement VR 01/03/2018 3:03 PM TUBE CLOSING MACHINE OPERATOR Indication: Malfunctioning catheter. Comparison: None. Preoperative diagnosis: [...] A written informed consent was obtained. A 'time out' was performed per protocol prior to the procedure. Clinical discussion: Focused sonographic evaluation of the neck demonstrated a patent and compressible internal jugular vein. A safe approach was determined. TECHNIQUE: The patient was placed in a supine position on the fluoroscopy table. Slag Motor Operator film was obtained which demonstrated a left [...] catheter utilizing ultrasound and fluoroscopic guidance. SL: [id number] 01/03/2018 [facility] Retroperitoneal Complete US PROCEDURE: RENAL ULTRASOUND Clinical [...] renal cysts. Otherwise normal exam. [id number] 01/01/2018 [facility] Abdomen/Pelvis wo IV contrast CT PROCEDURE: CT [...] may provide additional information. END REPORT SL: VITOR 01/01/2018 [facility] Chest 2 views DX EXAMINATION: Chest, 2 [...] acute cardiopulmonary disease. 2. Atherosclerotic aorta 08/24/2015 [facility] Small bowel series DX Exam: Small bowel x-ray series Reason for Exam: D64.9 Anemia, unspecified Comparison Exam: None Discussion: On gas flow regulator view, there are no dilated loops of [...] ileostomy within the right lower quadrant. 04/13/2015 [facility] Consultation Notes No Data Provided for This Section Discharge Summaries No Data Provided for This Section History and Physicals No Data Provided for This Section Vital Signs Vital Sign Value Date Comments Source Temperature Oral (F) 98.1 F 03/05/2018 [facility] Heart Rate 95 03/05/2018 [facility] Systolic (mm Hg) 107 03/05/2018 [facility] Diastolic (mm Hg) 57 03/05/2018 [facility] Temperature Oral (F) 98.0 F 03/05/2018 [facility] Systolic (mm Hg) 129 03/05/2018 [facility] Diastolic (mm Hg) 82 03/05/2018 [facility] Heart Rate 102 03/05/2018 [facility] Systolic (mm Hg) 122 03/05/2018 [facility] Diastolic (mm Hg) 78 03/05/2018 [facility] Respitory Rate 16 03/05/2018 [facility] Heart Rate 97 03/05/2018 [facility] Temperature Oral (F) 98.0 F 03/05/2018 [facility] Respitory Rate 16 03/05/2018 [facility] Respitory Rate 16 03/05/2018 [facility] Height 121.92 cm 02/26/2018 [facility] Weight 53.4 02/26/2018 [facility] BMI Calculated 35.92 02/26/2018 [facility] Weight 62.727 02/25/2018 [facility] BMI Calculated 25.29 02/25/2018 [facility] Height 157.48 cm 02/25/2018 [facility] Systolic (mm Hg) 145 02/13/2018 [facility] Diastolic (mm Hg) 67 02/13/2018 [facility] Temperature Oral (F) 98.5 F 02/13/2018 [facility] Heart Rate 111 02/13/2018 [facility] Temperature Oral (F) 98.7 F 02/13/2018 [facility] Heart Rate 106 02/13/2018 [facility] Systolic (mm Hg) 151 02/13/2018 [facility] Diastolic (mm Hg) 67 02/13/2018 [facility] Heart Rate 104 02/13/2018 [facility] Temperature Oral (F) 97.8 F 02/13/2018 [facility] Respitory Rate 20 02/13/2018 [facility] Systolic (mm Hg) 136 02/13/2018 [facility] Diastolic (mm Hg) 77 02/13/2018 [facility] Respitory Rate 18 02/13/2018 [facility] Respitory Rate 16 02/13/2018 [facility] Weight 59.091 01/21/2018 [facility] Weight 59.091 01/21/2018 [facility] BMI Calculated 27.23 01/21/2018 [facility] Height 147.32 cm 01/21/2018 [facility] Heart Rate 91 01/13/2018 [facility] Temperature Oral (F) 98.2 F 01/13/2018 [facility] Systolic (mm Hg) 114 01/13/2018 [facility] Diastolic (mm Hg) 73 01/13/2018 [facility] Systolic (mm Hg) 131 01/13/2018 [facility] Diastolic (mm Hg) 78 01/13/2018 [facility] Heart Rate 91 01/13/2018 [facility] Temperature Oral (F) 97.8 F 01/13/2018 [facility] Systolic (mm Hg) 124 01/13/2018 [facility] Diastolic (mm Hg) 78 01/13/2018 [facility] Respitory Rate 18 01/13/2018 [facility] Heart Rate 87 01/13/2018 [facility] Temperature Oral (F) 97.9 F 01/13/2018 [facility] Respitory Rate 18 01/13/2018 [facility] Respitory Rate 20 01/13/2018 [facility] Height 147.32 cm 01/01/2018 [facility] BMI Calculated 28.06 01/01/2018 [facility] Weight 60.909 01/01/2018 [facility] BMI Calculated 28.06 01/01/2018 [facility] Weight 60.909 01/01/2018 [facility] Height 147.32 cm 01/01/2018 [facility] Height 147.32 cm 01/01/2018 [facility] BMI Calculated 28.06 01/01/2018 [facility] Weight 60.909 01/01/2018 [facility] Encounters Location Location Details Encounter Type Encounter Number Reason For Visit Attending Provider ADM Date DC Date Status Source [facility] [place] [facility] [id number] Jarrell Gaytan 04/13/2015 04/14/2015 [facility] [place] [facility] [place] [facility] [id number] Thomas Perry 08/24/2015 08/25/2015 [facility] [place] [id number] [facility] 01/01/2018 01[facility]13/2018 [facility] [id number] [facility] 01/21/2018 02/14/2018 [facility] Inpatient [id number] [facility] 02/25/2018 03/06/2018 [facility] Procedures Procedure Code Date Perfomer Comments Source Colectomy [id number] [facility] Hemorrhoidectomy [id number] [facility] Knee joint operation [id number] [facility] Ostomy care management [id number] [facility] Wrist repair [id number] [facility] Assessment and Plan Assessment and Plan Date Source Extracted from:Title: Clinical Document Author: Celeste Samuels MD Date: 03/05/18 Progress Daily [facility] Completed: Feb, 17:44 by Celeste Samuels MD RM: 301 - 1P, SE C3BS JOSÉ MIGUEL MÉNDEZ 67y (: 1950) F Attending: Joshua Healy MD Service: Internal Medicine Reason for Admission: ABDOMINAL PAIN, ACUTE, ACUTE LOWER UTI, ACUTE RENAL EMILEE Working DRG: Code status: None Specified=FULL CODE Current diet: Isolation: No Isolation/Standard Precautions Allergies: ibuprofen, Motrin SUBJECTIVE 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 Patient does have a fistula which is low output in the upper part of the incision AK I and multiple electrolyte abnormalities secondary to high output fistula and loss of electrolytes patient needs constant monitoring and replacement PLAN and TREATMENT Patient needs catheter into the fistula connected to the suction as an outpatient to and discussed with the caser up patient needs a fistula spa assistant manager and suction at the skilled facility to facilitate to wound healing patient needs close monitoring Patient needs to follow-up with the surgeon for probably definitive management DIAGNOSES and PROBLEMS Ready for Discharge (Yes/No)? Clark still necessary (Yes/No): Line still necessary (Yes/No): 24hr Labs 03/05 1044 POC Performing Locatio See Note Glucose POC 174 H 03/05 0918 Glucose Lvl 117 H BUN 41 H Creatinine Lvl 2.18 H Sodium Lvl 134 L Potassium Lvl 3.2 L Chloride Lvl 93 L CO2 33 H AGAP 11.2 Calcium Lvl 7.8 L eGFR 23 WBC 8.5 RBC 3.23 L Hgb 9.6 L Hct 29.1 L MCV 90.3 MCH 29.8 MCHC 33.0 RDW 16.3 H Platelet 295 MPV 6.8 L 03/05 0822 POC Performing Locatio See Note Glucose POC 96 03/05 0254 POC Performing Locatio See Note Glucose POC 92 03/04 2005 POC Performing Locatio See Note Glucose POC 167 H 03/04 1748 POC Performing Locatio See Note Glucose POC 157 H Vitals Tmp(F) Pulse BP RR SpO2 FIO2 03/05 10:41 98.1 95 107/57 -- 97 --- 03/05 07:44 98.0 102 129/82 -- 98 --- 03/05 03:05 98.0 97 122/78 16 97 --- 03/04 23:34 98.0 101 109/71 16 95 --- 03/04 19:33 97.9 93 116/63 16 99 --- 24 Hr Tmax: 98.1F (36.72c) at 03/05 10:41 Vital Signs are the last 5 in the past 48 hours. Date Wt(kg) Wt(lb) Ht(cm) Ht(in) Method 02/25 (initial) 62.73 138.00 Measured 02/25 157.48 62.00 Stated I&O Record In Out Bal 03/05 24hr Tot 2 0 2 03/04 24hr Tot 1307 1325 -18 Medications (32) Active Scheduled Meds (5): 02/28/18 calcium carbonate (Tums) 1,000 mg CHEW TID-Before Meals 02/25/18 enoxaparin (Lovenox) 30 mg SUB-Q [id number] 03/02/18 metoprolol (metoprolol extended release) 25 mg [...] (SEROquel) 25 mg PO BID 02/25/18 acetaminophen-hydrocodone (Comer 5/325 oral tablet) 1 tab PO Q6H 02/25/18 acetaminophen 650 mg PO Q6H 02/25/18 bisacodyl 10 mg [place] Daily 02/25/18 diphenhydrAMINE 25 mg PO Q6H [...] 1,000 mL) 1,000 mL 125 ml/hr Extracted from:Title: Discharge Summary * Author: Joshua Healy MD Date: 03/05/18 Discharge Information [facility]position [facility] Condition stable Medications: See med reconciliation form Diet: Heart healthy Discharge Plan In the event of any worsening symptom patient was come back to the ED for further evaluation Discharge summary to greater than 35 minutes Extracted from:Title: Clinical Document Author: Celeste Samuels MD Date: [...] underwent a colectomy with ileostomy placement at [place] in September as per her she had [...] as we do not have any wound spa assistant manager in the wound clinic and she was supposed to get a wound spa assistant manager from the [facility] and follow-up in the wound clinic REVIEW [...] midline. Fistula area secondary to stool irritation INVESTMENT UNDERWRITER AAox3 NO FND Skin no wounds seen [...] you Dr. Healy for the consult Extracted from:Title: General Admission H&P * Author: Joshua Healy [...] eval Lovenox for DVT prophylaxis Case management: [facility] facility placement Disposition: Inpatient DC planning: Patient will be discharged to [facility]. 03/06/2018 [facility] Extracted from:Title: Discharge Summary * Author: Joshua Healy MD Date: 02/13/18 Discharge Information depo: home condition: stable reg diet Extracted from:Title: Clinical Document Author: John Oreilly MD Date: 02/13/18 Progress Note - Daily [facility] Completed: Feb, 16:13 by John Oreilly MD RM: 314 - 1P, SE C3BS JOSÉ MIGUEL MÉNDEZ 67y (: 1950) F Attending: Joshua Healy MD Service: Internal Medicine Reason for Admission: MAGI Working DRG: Code status: Full Code Current diet: Isolation: No Isolation/Standard Precautions Allergies: ibuprofen, Motrin SUBJECTIVE OBJECTIVE 24hr Labs 02/13 1125 POC Performing Locatio See Note Glucose POC 191 H 02/13 0841 POC Performing Locatio See Note Glucose POC 259 H 02/13 0710 Glucose Lvl 299 H BUN 11 Creatinine Lvl 1.10 Sodium Lvl 144 Potassium Lvl 3.6 Chloride Lvl 113 H CO2 19 L AGAP 15.6 Calcium Lvl 6.9 C eGFR 52 02/13 0237 POC Performing Locatio See Note Glucose POC 284 H 02/12 2151 POC Performing Locatio See Note Glucose POC 133 H 02/12 1639 POC Performing Locatio See Note Glucose POC 122 H Clark still necessary (Yes/No): Line still necessary (Yes/No): Vitals Tmp(F) Pulse BP RR SpO2 FIO2 02/13 11:23 98.5 111 145/67 -- 98 21% 02/13 07:49 98.7 106 151/67 -- 100 --- 02/13 03:30 97.8 104 136/77 20 98 --- 02/12 23:00 98.6 110 135/71 18 97 --- 02/12 19:58 98.6 97 157/65 16 97 --- 24 Hr Tmax: 98.7F (37.06c) at 02/13 07:49 Vital Signs are the last 5 in the past 48 hours. Date Wt(kg) Wt(lb) Ht(cm) Ht(in) Method 01/21 (initial) 59.09 130.00 Estimated 01/21 147.32 58.00 Stated I&O Record In Out Bal 02/13 24hr Tot 441 275 166 02/12 24hr Tot 6438 5974 146 Medications (32) Active Scheduled Meds (12): 01/22/18 amLODIPine 10 mg PO Daily 01/21/18 docusate 100 mg PO BID 01/25/18 insulin glargine 15 unit SUB-Q Bedtime 0 ml/hr 02/07/18 meropenem + Sodium Chloride 0.9% IV 100 mL (Merrem + Sodium Chloride 0.9% IV 100 mL) 500 mg IVPB [id number] 33.33 ml/hr 01/22/18 metoprolol (Toprol-XL 25 mg oral tablet, extended release) 25 mg PO Daily 01/24/18 pantoprazole (Protonix) 40 mg PO BID 02/13/18 potassium citrate (Urocit-K) 10 mEq PO TID-Meals 02/13/18 (Suspended) predniSONE 60 mg PO Daily 01/21/18 senna 17.2 mg PO Bedtime 01/22/18 sertraline 100 mg PO Daily 02/13/18 (Suspended) sodium bicarbonate (sodium bicarbonate 325 mg oral tablet) 650 mg PO BID 01/23/18 sucralfate 1 gm PO QID Unscheduled Meds: None PRN Meds (18): 01/23/18 Dextrose 50% in Water IV (Dextrose 50% Syringe) 12.5 gm IVP PRN 01/23/18 Dextrose 50% in Water IV (Dextrose 50% Syringe) 25 gm IVP PRN 01/21/18 LORazepam 0.5 mg PO BID 01/21/18 acetaminophen-hydrocodone (Comer 5/325 oral tablet) 1 tab PO Q6H 01/21/18 acetaminophen 650 mg PO Q4H 01/26/18 insulin lispro 3 unit SUB-Q TID-Before Meals 01/26/18 insulin lispro 6 unit SUB-Q TID-Before Meals 01/26/18 insulin lispro 9 unit SUB-Q TID-Before Meals 01/26/18 insulin lispro 12 unit SUB-Q TID-Before Meals 01/26/18 insulin lispro 15 unit SUB-Q TID-Before Meals 01/26/18 insulin lispro 1 unit SUB-Q Bedtime 01/26/18 insulin lispro 2 unit SUB-Q Bedtime 01/26/18 insulin lispro 3 unit SUB-Q Bedtime 01/26/18 insulin lispro 4 unit SUB-Q Bedtime 01/21/18 melatonin 3 mg PO Bedtime 01/21/18 morphine Sulfate 2 mg IV Q4H 01/21/18 ondansetron 4 mg IVP Q8H 01/21/18 promethazine + Sodium Chloride 0.9% IV 50 mL (Phenergan + Sodium Chloride 0.9% IV 50 mL) 12.5 mg IVPB Q6H 151.5 ml/hr One Time Meds (1): 02/13/18 (Completed) calcium gluconate + Sodium Chloride 0.9% IV 80 mL 2,000 mg IVPB ONCE 200 ml/hr Continuous Infusions (1): 02/13/18 (Suspended) sodium bicarbonate 75 mEq + Dextrose 5% with 0.45% NaCl IV 1,000 mL (sodium bicarbonate 8.4% additive 75 mEq + D5W 1/2NS 1,000 mL) 1,000 mL 75 ml/hr ASSESSMENT and EXAM PLAN and TREATMENT DIAGNOSES and PROBLEMS Ready for Discharge (Yes/No)? TEACHING ATTESTATION Extracted from:Title: GI Consult Note Author: Diogenes Moreno MD Date: 01/22/18 Impression and Plan 1. Epigastric Pain, H/o GERD - Plan for EGD tomorrow - Consents ordered - On PPI R/O gastric outlet obstruction, PUD, neoplasm, GERD 2. Nausea/vomiting - On Zofran and Phenergan 3. Anemia, likely of chronic disease - Stable, continue to monitor 4. S/p colectomy with ileostomy placement - Continue to monitor 5. Acute and chronic kidney disease - Renal following GI ATTENDING ATTESTATION I have examined the patient with the PA/FIELD CARE COORDINATOR and confirmed the integral components of the history, physical examination, diagnosis and treatment plan. I agree with the note and management decisions as documented by the FIELD CARE COORDINATOR/PA, and amended as needed in the text by me. Diogenes Moreno M.D, FACG, IRLANDA. Extracted from:Title: General Admission H&P * Author: Joshua Healy MD Date: 01/21/18 Impression and Plan 1. Abdominal pain with nausea/vomiting 2. Dehydration 3. Abdominal fistula leak 4. Acute kidney injury with uremia 5. Hypertension. 6. Hyperlipidemia. 7. Diabetes mellitus. 8. Metabolic encephalopathy secondary to pain meds 9. Hypomagnesemia Plan: Normal saline bolus 1 L x2, maintenance IV fluid Clear liquid diet Pain control, antinausea medication Insulin sliding scale, Accu-Cheks Replace magnesium A.m. labs Consultants: General surgery, nephrology 02/14/2018 QUINTIN Fry Extracted from:Title: Discharge Summary * Author: Joshua Healy MD Date: 01/13/18 Discharge Information Disposition to home Condition stable Medications: See med reconciliation form Diet: Heart healthy Discharge Plan In evaluating worsening symptoms patient was coming to the ED for further evaluation Discharge #2 greater than 35 minutes Extracted from:Title: Clinical Document Author: Dayan Rios Date: 01/13/18 Pain Management Progress Note Dayan Rios PA-C SUBJECTIVE Patient states that pain is stable. Reports persistent abdominal pain. No acute events overnight. Current pain: 6/10 The pain medications are tolerated well. No side effects. Regular diet. Sleeping well overnight. REVIEWS OF SYSTEMS: Negative unless otherwise stated above. OBJECTIVE GENERAL: Awake, alert and oriented. The patient appears to be in no apparent distress. Lying comfortably in bed. SKIN: Warm and dry throughout. No cyanosis. No jaundice. EYES: EOMI. Conjunctiva pink. MOUTH/ THROAT/ NECK: Supple. No masses. Trachea midline. RESPIRATORY: Normal respiratory effort. Symmetric rise of the chest wall. No accessory muscle use. CARDIOVASCULAR: Regular rate. GASTROINTESTINAL: Soft. Large open abdominal wound. MUSCULOSKELETAL: No musculoskeletal tenderness. NEUROLOGICAL: Moves all limbs spontaneously. Sensation grossly intact to light touch. EXTREMITIES: No clubbing. No edema. LABS Creatinine: 1.99 ASSESSMENT AND PLAN Ms. Méndez is a 67-year-old female with a complicated past medical history. She is status-post colectomy with ileostomy placement. Patient with persistent nonhealing wound with abdominal fistula. Patient with associated abdominal pain. Patient with controlled pain. Will continue IV Dilaudid 1mg every 12 hours as needed for moderate to severe pain. Will continue PO Comer 10/325mg every 6 hours as needed for mild to moderate pain. Discussed proper medication usage with the patient today. We left a prescription on her chart for Comer 10/325mg, #20, CTRL [id number] for upon discharge. We will continue to monitor and make adjustments as needed. Please call with any questions or concerns. Attending: Joshua Healy MD Service: Internal Medicine Code status: None Specified=FULL CODE Reason for Admission: ABDOMINAL FISTULA LEAKING Working DRG: Isolation: Contact Consulting Physicians: Prema Price MD Office: Service: Nephrology Keith Price MD Office: Service: Medicine, Nephrology Celeste Samuels MD Office: Service: Medicine Jr Louis MD Office: Service: Medicine, Neurology Larry Ragland MD Office: Service: Urology Giovana Moon MD Office: Service: Anesthesiology David Ram MD Office: Service: General Surgery Vasquez Randhawa DO Office: Service: Medicine Scheduled Meds (6): 01/04/18 amLODIPine 10 mg PO Daily 01/04/18 carvedilol 6.25 mg PO BID 01/04/18 enoxaparin (Lovenox) 30 mg SUB-Q [id number] 01/04/18 octreotide 50 microgram SUB-Q TID 01/04/18 pantoprazole 40 mg IVP Q12H 01/04/18 sertraline 100 mg PO Daily PRN Meds (16): 01/02/18 Dextrose 50% in Water IV (Dextrose 50% Syringe) 12.5 gm IVP PRN 01/02/18 Dextrose 50% in Water IV (Dextrose 50% Syringe) 25 gm IVP PRN 01/04/18 LORazepam (Ativan) 0.5 mg PO TID 01/01/18 acetaminophen-hydrocodone (Comer 10/325 oral tablet) 1 tab PO Q6H 01/03/18 acetaminophen (Tylenol) 650 mg PO Q6H 01/01/18 cloNIDine (cloNIDine 0.1 mg oral tablet) 0.1 mg PO Q8H 01/02/18 glucagon 1 mg IM PRN 01/01/18 hydromorphone (Dilaudid) 1 mg IV Q12H 01/02/18 insulin lispro 3 unit SUB-Q Sliding Scale 01/02/18 insulin lispro 6 unit SUB-Q Sliding Scale 01/02/18 insulin lispro 9 unit SUB-Q Sliding Scale 01/02/18 insulin lispro 12 unit SUB-Q Sliding Scale 01/02/18 insulin lispro 15 unit SUB-Q Sliding Scale 01/04/18 melatonin 3 mg PO Bedtime 01/01/18 ondansetron (Zofran) 4 mg IVP Q8H 01/04/18 zolpidem (Ambien) 5 mg PO Bedtime Vitals Tmp(F) Pulse BP RR SpO2 FIO2 01/13 10:54 98.2 91 114/73 -- 96 --- 01/13 07:15 97.8 91 131/78 -- 97 --- 01/13 03:57 97.9 87 124/78 18 96 --- 01/12 23:02 98.7 83 112/68 18 95 --- 12 20:18 98.5 82 115/68 20 94 --- 24 Hr Tmax: 98.7F (37.06c) at 01/12 23:02 Vital Signs are the last 5 in the past 48 hours. Lines, Tubes, and Drains: 01/06/2018 19:27 Central Lines: Internal jugular, left Non-tunneled (most common) 01/06/2018 07:00 Surgical Drains: Other: midline fistula spa assistant manager [facility] 01/01/2018 07:50 GI Ostomy: Ileostomy Established llq I&O Record In Out Bal 01/13 24hr Tot 1 0 1 01/12 24hr Tot 294 900 -606 Date Wt(kg) Wt(lb) Ht(cm) Ht(in) Method 01/01 (initial) 60.64 133.40 Measured 01/01 147.32 58.00 Stated None Specified=FULL CODE Allergies: ibuprofen, Motrin Addendum by Daniel Woodson MD on 01/14/2018 16:50 I agree with the assessment and plan per ESTIVEN Ponce. Extracted from:Title: Clinical Document Author: Celeste Samuels MD Date: 01/07/18 Wound care consultation Chief complaint: Wound care consultation was called for postoperative wound dehiscence and fistula Thank you Dr. Reid and Dr. Ram for the consult HISTORY OF PRESENT ILLNESS: The patient is a 67-year-old female with a significant past medical history of hypertension, hyperlipidemia, diabetes mellitus, diverticulitis, with multiple abdominal surgeries, underwent a colectomy with ileostomy placement at [place] in September as per her she had some blockage and it started leaking so Dr. Ram did a diversion ileostomy she says she did have a wound dehiscence and leaking since September but it was getting worse so she came to the emergency room and admitted for the above she does have this pain on and off she says she was very independent before but now unable to walk secondary to pain. Was evaluated by Dr. Ram and recommended only nonoperative management He was seen by the wound care nurse and wound spa assistant manager was placed today and she has almost full in the back. She is on liquid diet. And also on TPN REVIEW OF SYSTEMS: A 12-point review of [...] ALLERGIES: Ibuprofen. Motrin. Physical examination: Vital signs T98.4 [place] 86 BP 03/10/1967 RR 16 HEENT ROSANGELA Neck supple RS Equal AE b/l no added sounds CVS S1S2 normal no murmur P/A soft patient has a wound spa assistant manager in the midline having profuse feculent drainage She has a ileostomy could not see the wound as patient has a wound spa assistant manager INVESTMENT UNDERWRITER AAox3 NO FND Skin intact Ext no edema PP +ve Lab data Sodium 137 potassium 3.9 BUN 60-63 creatinine improved from 5 to 1.41 patient's albumin level is 2.7 hemoglobin 8.3 hematocrit 24.6 platelet count is 285 prealbumin 13.[address] abdomen and pelvis shows a short small caliber small bowel fistula draining into the midline abdominal wound and indeterminate subcentimeter hypoattenuating right renal abnormality Renal ultrasound shows cysts Assessment and plan Postoperative wound dehiscence with 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 Ram postoperative wound dehiscence is much improved so we will continue to manage conservatively Patient needs a nutritional support I have discussed with the patient at length once she is discharged from the hospital she needs to follow-up in the wound clinic I will follow the patient during the hospital stay 01/13/2018 Ang Plan of Care No Data Provided for This Section Social History Social History Date Source Social History TypeResponse Substance Abuse Use: None. Alcohol Never Smoking Status Never smoker; Exposure to Tobacco Smoke None; Cigarette Smoking Last 365 Days No; Reg Smoking Cessation Counseling No entered on: 02/25/18 02/26/2018 Ang No data available for this section 08/25/2015 OSMAN Rojas Family History No Data Provided for This Section Advance Directives No Data Provided for This Section Functional Status No Data Provided for This Section
--- OUTSIDE RECORDS SUMMARY | 2018-10-20 13:13 | XMS REPORT | Summary of Care ---
Author Author [facility] Organization [facility] Address Unknown Phone Unavailable Encounter LEONARD Stout([id number]) [id number] Date(s): 01/21/18 - 02/13/18 [facility] [address] [place] [address]- Encounter Diagnosis Persistent postprocedural fistula, initial encounter (Final) - 02/25/18 Toxic encephalopathy (Final) - Acute kidney failure, unspecified (Final) - Hypo-osmolality and hyponatremia (Final) - Acidosis (Final) - Fistula of intestine (Final) - Ulcer of esophagus without bleeding (Final) - Type 2 diabetes mellitus with diabetic chronic kidney disease (Final) - Hypertensive chronic kidney disease with stage 1 through stage 4 chronic kidney disease, or unspecified chronic kidney disease (Final) - Chronic kidney disease, stage 3 (moderate) (Final) - Hyperlipidemia, unspecified (Final) - Diaphragmatic hernia without obstruction or gangrene (Final) - Gastritis, unspecified, without bleeding (Final) - Anemia in other chronic diseases classified elsewhere (Final) - residential (current) use of insulin (Final) - Ileostomy status (Final) - Personal history of nicotine dependence (Final) - Acquired absence of other specified parts of digestive tract (Final) - Dehydration (Final) - Hyperkalemia (Final) - Hypomagnesemia (Final) - Adverse effect of unspecified nonopioid analgesic, antipyretic and antirheumatic , initial encounter (Final) - Gastro-esophageal reflux disease with esophagitis (Final) - Hypokalemia (Final) - Other malaise (Final) - Nausea with vomiting, unspecified (Final) - Type 2 diabetes mellitus with hypoglycemia without coma (Final) - Fever, unspecified (Final) - Pain in right forearm (Final) - Unspecified right bundle-branch block (Final) - Epigastric pain (Final) - Surgical operation with formation of external stoma as the cause of abnormal ingrid ction of the patient, or of later complication, without mention of misadventure at the time of the procedure (Final) - Discharge Disposition: Home Care with Home Health Attending Physician: Joshua Healy MD Admitting Physician: Joshua Healy MD Vital Signs 1 2 3 Most recent to oldest [Reference Range]: 147.32 cm (01/21/18 6:14 AM) Height 98.5 DegF (02/13/18 11:23 AM) 98.7 DegF (02/13/18 7:49 AM) 97.8 DegF (02/13/18 3:30 AM) Temperature Oral [96.4-99.1 DegF] 145/67 mmHg *HI* (02/13/18 11:23 AM) 151/67 mmHg *HI* (02/13/18 7:49 AM) 136/77 mmHg (02/13/18 3:30 AM) Blood Pressure [90-140/60-90 mmHg] 20 BRMIN (02/13/18 3:30 AM) 18 BRMIN (02/12/18 11:00 PM) 16 BRMIN (02/12/18 7:58 PM) Respiratory Rate [14-20 BRMIN] 111 bpm *HI* (02/13/18 11:23 AM) 106 bpm *HI* (02/13/18 7:49 AM) 104 bpm *HI* (02/13/18 3:30 AM) Peripheral Pulse Rate [60-100 bpm] 59.091 kg (01/21/18 11:29 AM) 59.091 kg (01/21/18 6:14 AM) Weight 27.23 m2 (01/21/18 6:14 AM) Body Mass Index Problem List No data available for this section Allergies, Adverse Reactions, Alerts Substance Reaction Severity Status ibuprofen Active Motrin Active Medications acetaminophen 650 mg, 2 tab, Route: PO, Drug form: TAB, Q4H, Dosing Weight 59.091, kg, PRN For Temp > 100.4 F, Start date: 01/21/18 9:40:00 PAINT STOCK CLERK, Duration: 30 day, Stop date: 02/20/18 9:39:00 PAINT STOCK CLERK Notes: Do not exceed 4 gm/day. (Same as: Tylenol) Start Date: 01/21/18 Stop Date: 02/13/18 Status: Discontinued Adult Parenteral Nutrition Custom - Central (TPN) 1,850 mL 1,850 mL, Rate: 75 ml/hr, Infuse over: 24.7 hr, Dosing Weight 59.091, kg, Route: IV, Total Volume: 1,850 mL, Start Date: 01/26/18 22:00:00 PAINT STOCK CLERK, Duration: 24 hr, Stop date: 01/27/18 21:59:00 PAINT STOCK CLERK, Replace Every: 24 hr Notes: Central line only Must use 1.2 micron filter AND Lipids should not be adm inistered to patients who are allergic to soy, fish, egg or peanuts. Start Date: 01/26/18 Stop Date: 01/27/18 Status: Completed Adult Parenteral Nutrition Custom - Central (TPN) 1,850 mL 1,850 mL, Rate: 75 ml/hr, Infuse over: 24.7 hr, Dosing Weight 59.091, kg, Route: IV, Total Volume: 1,850 mL, Start Date: 01/24/18 22:00:00 PAINT STOCK CLERK, Duration: 24 hr, Stop date: 01/25/18 21:59:00 PAINT STOCK CLERK, Replace Every: 24 hr Start Date: 01/24/18 Stop Date: 01/25/18 Status: Completed Adult Parenteral Nutrition Custom - Central (TPN) 1,850 mL 1,850 mL, Rate: 75 ml/hr, Infuse over: 24.7 hr, Dosing Weight 59.091, kg, Route: IV, Total Volume: 1,850 mL, Start Date: 01/25/18 22:00:00 PAINT STOCK CLERK, Duration: 24 hr, Stop date: 01/26/18 21:59:00 PAINT STOCK CLERK, Replace Every: 24 hr Notes: Central line only Must use 1.2 micron filter AND Lipids should not be adm inistered to patients who are allergic to soy, fish, egg or peanuts. Start Date: 01/25/18 Stop Date: 01/26/18 Status: Completed Adult Parenteral Nutrition Custom - Central (TPN) 1,850 mL 1,850 mL, Rate: 75 ml/hr, Infuse over: 24.7 hr, Dosing Weight 59.091, kg, Route: IV, Total Volume: 1,850 mL, Start Date: 01/23/18 22:00:00 PAINT STOCK CLERK, Duration: 24 hr, Stop date: 01/24/18 21:59:00 PAINT STOCK CLERK, Replace Every: 24 hr Start Date: 01/23/18 Stop Date: 01/24/18 Status: Completed amLODIPine 10 mg, 2 tab, Route: PO, Drug form: TAB, Daily, Dosing Weight 59.091, kg, Start date: 01/22/18 9:00:00 PAINT STOCK CLERK, Duration: 30 day, Stop date: 03/22/18 9:00:00 PAINT STOCK CLERK Notes: (Same as: Norvasc) Start Date: 01/22/18 Stop Date: 02/13/18 Status: Discontinued calcium gluconate + Sodium Chloride 0.9% IV 80 mL 2,000 mg, 20 mL, Route: IVPB, ONCE, Dosing Weight 59.091, kg, Start date: 11:36:00 PAINT STOCK CLERK, Stop date: 02/13/18 11:36:00 PAINT STOCK CLERK Notes: WASTE: F/P - Sink; E - Municipal Trash Bin Start Date: 02/13/18 Stop Date: 02/13/18 Status: Completed carvedilol 6.25 mg, 2 tab, Route: PO, Drug form: TAB, BID, Dosing Weight 59.091, kg, Start date: 01/21/18 21:00:00 PAINT STOCK CLERK, Duration: 30 day, Stop date: 02/20/18 9:00:00 PAINT STOCK CLERK Notes: Give with food. (Same As: Coreg) Start Date: 01/21/18 Stop Date: 01/21/18 Status: Canceled D5NS 1,000 mL 1,000 mL, Rate: 75 ml/hr, Infuse over: 13.3 hr, Route: IV, Dosing Weight 59.091 kg, Total Volume: 1,000, Start date: 02/04/18 7:09:00 PAINT STOCK CLERK, Duration: 30 day, Sto p date: 03/06/18 7:08:00 PAINT STOCK CLERK, 1.58, m2 Start Date: 02/04/18 Stop Date: 02/12/18 Status: Discontinued D5W 1/2NS + KCL 30mEq/L 1000ml (Premix) 1,000 mL 1,000 mL, Rate: 100 ml/hr, Infuse over: 10 hr, Route: IV, Dosing Weight 59.091 k g, Total Volume: 1,000, Start date: 01/23/18 15:57:00 PAINT STOCK CLERK, Duration: 30 day, Sto p date: 02/22/18 15:56:00 PAINT STOCK CLERK, 1.58, m2 Notes: PREMIX IV - Do Not AlterWASTE: F/P - Sink; E - Municipal Trash Bin Start Date: 01/23/18 Stop Date: 01/23/18 Status: Discontinued Dextrose 50% Syringe 25 mL, Route: IVP, Dosing Weight 59.091, kg, PRN, PRN Blood Glucose Results, Sta rt date: 01/26/18 12:49:00 PAINT STOCK CLERK, Duration: 30 day, Stop date: 02/25/18 12:48:[address] Start Date: 01/26/18 Stop Date: 01/26/18 Status: Deleted Dextrose 50% Syringe 50 mL, Route: IVP, Dosing Weight 59.091, kg, PRN, PRN Blood Glucose Results, Sta rt date: 01/26/18 12:49:00 PAINT STOCK CLERK, Duration: 30 day, Stop date: 02/25/18 12:48:[address] Start Date: 01/26/18 Stop Date: 01/26/18 Status: Deleted Dextrose 50% Syringe 25 gm, 50 mL, Route: IVP, Drug Form: INJ, Dosing Weight 59.091, kg, PRN, PRN Blo od Glucose Results, Start date: 01/21/18 9:40:00 PAINT STOCK CLERK, Duration: 30 day, Stop fatimah e: 02/20/18 9:39:00 PAINT STOCK CLERK Start Date: 01/21/18 Stop Date: 01/23/18 Status: Discontinued Dextrose 50% Syringe 12.5 gm, 25 mL, Route: IVP, Drug Form: INJ, Dosing Weight 59.091, kg, PRN, PRN B lood Glucose Results, Start date: 01/21/18 9:40:00 PAINT STOCK CLERK, Duration: 30 day, Stop d ate: 02/20/18 9:39:00 PAINT STOCK CLERK Start Date: 01/21/18 Stop Date: 01/23/18 Status: Discontinued Dextrose 50% Syringe 50 mL, Route: IVP, Dosing Weight 59.091, kg, PRN, PRN Blood Glucose Results, Sta rt date: 01/21/18 17:44:00 PAINT STOCK CLERK, Duration: 30 day, Stop date: 02/20/18 17:43:[address] Start Date: 01/21/18 Stop Date: 01/21/18 Status: Deleted Dextrose 50% Syringe 25 mL, Route: IVP, Dosing Weight 59.091, kg, PRN, PRN Blood Glucose Results, Sta rt date: 01/21/18 17:44:00 PAINT STOCK CLERK, Duration: 30 day, Stop date: 02/20/18 17:43:[address] Start Date: 01/21/18 Stop Date: 01/21/18 Status: Deleted Dextrose 50% Syringe 25 gm, 50 mL, Route: IVP, Drug Form: INJ, Dosing Weight 59.091, kg, PRN, PRN Blo od Glucose Results, Start date: 01/23/18 21:46:00 PAINT STOCK CLERK, Duration: 30 day, Stop da te: 02/22/18 21:45:00 PAINT STOCK CLERK Start Date: 01/23/18 Stop Date: 02/13/18 Status: Discontinued Dextrose 50% Syringe 12.5 gm, 25 mL, Route: IVP, Drug Form: INJ, Dosing Weight 59.091, kg, PRN, PRN B lood Glucose Results, Start date: 01/23/18 21:46:00 PAINT STOCK CLERK, Duration: 30 day, Stop date: 02/22/18 21:45:00 PAINT STOCK CLERK Start Date: 01/23/18 Stop Date: 02/13/18 Status: Discontinued docusate 100 mg, 1 cap, Route: PO, Drug form: CAP, BID, Dosing Weight 59.091, kg, Start d ate: 01/21/18 17:00:00 PAINT STOCK CLERK, Duration: 30 day, Stop date: 02/20/18 9:00:00 PAINT STOCK CLERK Notes: (Same as: Colace) (Do Not Crush) Start Date: 01/21/18 Stop Date: 02/13/18 Status: Discontinued gabapentin 300 mg oral capsule 300 mg, 1 cap, Route: PO, Drug form: CAP, Daily, Dosing Weight 59.091, kg, Start date: 01/22/18 9:00:00 PAINT STOCK CLERK, Duration: 30 day, Stop date: 02/20/18 9:00:00 PAINT STOCK CLERK Notes: (Same as: Neurontin) Start Date: 01/22/18 Stop Date: 01/21/18 Status: Canceled glucagon 1 mg, Route: IM, PRN, Dosing Weight 59.091, kg, PRN Blood Glucose Results, Start date: 01/26/18 12:49:00 PAINT STOCK CLERK, Duration: 30 day, Stop date: 02/25/18 12:48:00 PAINT STOCK CLERK Start Date: 01/26/18 Stop Date: 01/26/18 Status: Deleted glucagon 1 mg, Route: IM, Drug form: PDR/INJ, PRN, Dosing Weight 59.091, kg, PRN Blood Gl ucose Results, Start date: 01/21/18 9:40:00 PAINT STOCK CLERK, Duration: 30 day, Stop date: 9:39:00 PAINT STOCK CLERK Start Date: 01/21/18 Stop Date: 01/23/18 Status: Discontinued glucagon 1 mg, Route: IM, PRN, Dosing Weight 59.091, kg, PRN Blood Glucose Results, Start date: 01/21/18 17:44:00 PAINT STOCK CLERK, Duration: 30 day, Stop date: 02/20/18 17:43:00 PAINT STOCK CLERK Start Date: 01/21/18 Stop Date: 01/21/18 Status: Deleted glucagon 1 mg, Route: IM, Drug form: PDR/INJ, PRN, Dosing Weight 59.091, kg, PRN Blood Gl ucose Results, Start date: 01/23/18 21:46:00 PAINT STOCK CLERK, Duration: 30 day, Stop date: 0 02/22/18 21:45:00 PAINT STOCK CLERK Start Date: 01/23/18 Stop Date: 01/26/18 Status: Discontinued Imitrex 6 mg, 0.5 mL, Route: SUB-Q, Drug form: INJ, ONCE, Dosing Weight 59.091, kg, PRN Headache 6-10, Start date: 02/04/18 14:38:00 PAINT STOCK CLERK Notes: For SUBCUTANEOUS use only Start Date: 02/04/18 Stop Date: 02/04/18 Status: Completed insulin glargine 15 unit, 0.15 mL, Route: SUB-Q, Drug form: SOLN, Bedtime, Start date: 01/25/18 2 1:00:00 PAINT STOCK CLERK, Duration: 30 day, Stop date: 02/23/18 21:00:00 PAINT STOCK CLERK Notes: (Same as: Lantus)Do not hold insulin without contacting prescriberWASTE: F/P - Black; E - Municipal Trash Bin "single patient use only" Start Date: 01/25/18 Stop Date: 02/13/18 Status: Discontinued insulin lispro 2 unit, 0.02 mL, Route: SUB-Q, Drug form: SOLN, Bedtime, Dosing Weight 59.091, k g, PRN Blood Glucose Results, Start date: 01/26/18 12:49:00 PAINT STOCK CLERK, Duration: 30 da y, Stop date: 02/25/18 12:48:00 PAINT STOCK CLERK Notes: (Same as: Humalog ) Roll in palms of hands gently; Do not shake `vigorou sly. "Single Patient Use Only " WASTE: F/P - Black; E - [facility] Trash [facility] St able for 28 days at room temperature.Expires in days from Da te Start Date: 01/26/18 Stop Date: 02/13/18 Status: Discontinued insulin lispro 1 unit, 0.01 mL, Route: SUB-Q, Drug form: SOLN, Bedtime, Dosing Weight 59.091, k g, PRN Blood Glucose Results, Start date: 01/26/18 12:49:00 PAINT STOCK CLERK, Duration: 30 da y, Stop date: 02/25/18 12:48:00 PAINT STOCK CLERK Notes: (Same as: Humalog ) Roll in palms of hands gently; Do not shake `vigorou sly. "Single Patient Use Only " WASTE: F/P - Black; E - [facility] Trash [facility] St able for 28 days at room temperature.Expires in days from Da te Start Date: 01/26/18 Stop Date: 02/13/18 Status: Discontinued insulin lispro 4 unit, 0.04 mL, Route: SUB-Q, Drug form: SOLN, Bedtime, Dosing Weight 59.091, k g, PRN Blood Glucose Results, Start date: 01/26/18 12:49:00 PAINT STOCK CLERK, Duration: 30 da y, Stop date: 02/25/18 12:48:00 PAINT STOCK CLERK Notes: (Same as: Humalog ) Roll in palms of hands gently; Do not shake `vigorou sly. "Single Patient Use Only " WASTE: F/P - Black; E - [facility] Trash [facility] St able for 28 days at room temperature.Expires in days from Da te Start Date: 01/26/18 Stop Date: 02/13/18 Status: Discontinued insulin lispro 3 unit, 0.03 mL, Route: SUB-Q, Drug form: SOLN, Bedtime, Dosing Weight 59.091, k g, PRN Blood Glucose Results, Start date: 01/26/18 12:49:00 PAINT STOCK CLERK, Duration: 30 da y, Stop date: 02/25/18 12:48:00 PAINT STOCK CLERK Notes: (Same as: Humalog ) Roll in palms of hands gently; Do not shake `vigorou sly. "Single Patient Use Only " WASTE: F/P - Black; E - [facility] Trash [facility] St able for 28 days at room temperature.Expires in days from Da te Start Date: 01/26/18 Stop Date: 02/13/18 Status: Discontinued insulin lispro 15 unit, 0.15 mL, Route: SUB-Q, Drug form: SOLN, TID-Before Meals, Dosing Weight 59.091, kg, PRN Blood Glucose Results, Start date: 01/26/18 12:49:00 PAINT STOCK CLERK, Durat ion: 30 day, Stop date: 02/25/18 12:48:00 PAINT STOCK CLERK Notes: (Same as: Humalog ) Roll in palms of hands gently; Do not shake `vigorou sly. "Single Patient Use Only " WASTE: F/P - Black; E - [facility] Trash [facility] St able for 28 days at room temperature.Expires in days from Da te Start Date: 01/26/18 Stop Date: 02/13/18 Status: Discontinued insulin lispro 12 unit, 0.12 mL, Route: SUB-Q, Drug form: SOLN, TID-Before Meals, Dosing Weight 59.091, kg, PRN Blood Glucose Results, Start date: 01/26/18 12:49:00 PAINT STOCK CLERK, Durat ion: 30 day, Stop date: 02/25/18 12:48:00 PAINT STOCK CLERK Notes: (Same as: Humalog ) Roll in palms of hands gently; Do not shake `vigorou sly. "Single Patient Use Only " WASTE: F/P - Black; E - [facility] Tr[address] [facility] St able for 28 days at room temperature.Expires in days from Da te Start Date: 01/26/18 Stop Date: 02/13/18 Status: Discontinued insulin lispro 9 unit, 0.09 mL, Route: SUB-Q, Drug form: SOLN, TID-Before Meals, Dosing Weight 59.091, kg, PRN Blood Glucose Results, Start date: 01/26/18 12:49:00 PAINT STOCK CLERK, Durati on: 30 day, Stop date: 02/25/18 12:48:00 PAINT STOCK CLERK Notes: (Same as: Humalog ) Roll in palms of hands gently; Do not shake `vigorou sly. "Single Patient Use Only " WASTE: F/P - Black; E - [facility] Trash [facility] St able for 28 days at room temperature.Expires in days from Da te Start Date: 01/26/18 Stop Date: 02/13/18 Status: Discontinued insulin lispro 6 unit, 0.06 mL, Route: SUB-Q, Drug form: SOLN, TID-Before Meals, Dosing Weight 59.091, kg, PRN Blood Glucose Results, Start date: 01/26/18 12:49:00 PAINT STOCK CLERK, Durati on: 30 day, Stop date: 02/25/18 12:48:00 PAINT STOCK CLERK Notes: (Same as: Humalog ) Roll in palms of hands gently; Do not shake `vigorou sly. "Single Patient Use Only " WASTE: F/P - Black; E - [facility] Trash [facility] St able for 28 days at room temperature.Expires in days from Da te Start Date: 01/26/18 Stop Date: 02/13/18 Status: Discontinued insulin lispro 3 unit, 0.03 mL, Route: SUB-Q, Drug form: SOLN, TID-Before Meals, Dosing Weight 59.091, kg, PRN Blood Glucose Results, Start date: 01/26/18 12:49:00 PAINT STOCK CLERK, Durati on: 30 day, Stop date: 02/25/18 12:48:00 PAINT STOCK CLERK Notes: (Same as: Humalog ) Roll in palms of hands gently; Do not shake `vigorou sly. "Single Patient Use Only " WASTE: F/P - Black; E - [facility] Tr[address] [facility] St able for 28 days at room temperature.Expires in days from Da te Start Date: 01/26/18 Stop Date: 02/13/18 Status: Discontinued insulin lispro 2 unit, 0.02 mL, Route: SUB-Q, Drug form: SOLN, Bedtime, Dosing Weight 59.091, k g, PRN Blood Glucose Results, Start date: 01/21/18 17:44:00 PAINT STOCK CLERK, Duration: 30 da y, Stop date: 02/20/18 17:43:00 PAINT STOCK CLERK Notes: (Same as: Humalog ) Roll in palms of hands gently; Do not shake `vigorou sly. "Single Patient Use Only " WASTE: F/P - Black; E - [facility] Tr[address] [facility] St able for 28 days at room temperature.Expires in days from Da te Start Date: 01/21/18 Stop Date: 01/23/18 Status: Discontinued insulin lispro 1 unit, 0.01 mL, Route: SUB-Q, Drug form: SOLN, Bedtime, Dosing Weight 59.091, k g, PRN Blood Glucose Results, Start date: 01/21/18 17:44:00 PAINT STOCK CLERK, Duration: 30 da y, Stop date: 02/20/18 17:43:00 PAINT STOCK CLERK Notes: (Same as: Humalog ) Roll in palms of hands gently; Do not shake `vigorou sly. "Single Patient Use Only " WASTE: F/P - Black; E - [facility] Tr[address] St able for 28 days at room temperature.Expires in days from Da te Start Date: 01/21/18 Stop Date: 01/23/18 Status: Discontinued insulin lispro 4 unit, 0.04 mL, Route: SUB-Q, Drug form: SOLN, Bedtime, Dosing Weight 59.091, k g, PRN Blood Glucose Results, Start date: 01/21/18 17:44:00 PAINT STOCK CLERK, Duration: 30 da y, Stop date: 02/20/18 17:43:00 PAINT STOCK CLERK Notes: (Same as: Humalog ) Roll in palms of hands gently; Do not shake `vigorou sly. "Single Patient Use Only " WASTE: F/P - Black; E - [facility] Tr[address] St able for 28 days at room temperature.Expires in days from Da te Start Date: 01/21/18 Stop Date: 01/23/18 Status: Discontinued insulin lispro 3 unit, 0.03 mL, Route: SUB-Q, Drug form: SOLN, Bedtime, Dosing Weight 59.091, k g, PRN Blood Glucose Results, Start date: 01/21/18 17:44:00 PAINT STOCK CLERK, Duration: 30 da y, Stop date: 02/20/18 17:43:00 PAINT STOCK CLERK Notes: (Same as: Humalog ) Roll in palms of hands gently; Do not shake `vigorou sly. "Single Patient Use Only " WASTE: F/P - Black; E - [facility] Tr[address] [facility] St able for 28 days at room temperature.Expires in days from Da te Start Date: 01/21/18 Stop Date: 01/23/18 Status: Discontinued insulin lispro 8 unit, 0.08 mL, Route: SUB-Q, Drug form: SOLN, TID-Before Meals, Dosing Weight 59.091, kg, PRN Blood Glucose Results, Start date: 01/21/18 17:44:00 PAINT STOCK CLERK, Durati on: 30 day, Stop date: 02/20/18 17:43:00 PAINT STOCK CLERK Notes: (Same as: Humalog ) Roll in palms of hands gently; Do not shake `vigorou sly. "Single Patient Use Only " WASTE: F/P - Black; E - [facility] [facility] St able for 28 days at room temperature.Expires in days from Da te Start Date: 01/21/18 Stop Date: 01/23/18 Status: Discontinued insulin lispro 10 unit, 0.1 mL, Route: SUB-Q, Drug form: SOLN, TID-Before Meals, Dosing Weight 59.091, kg, PRN Blood Glucose Results, Start date: 01/21/18 17:44:00 PAINT STOCK CLERK, Durati on: 30 day, Stop date: 02/20/18 17:43:00 PAINT STOCK CLERK Notes: (Same as: Humalog ) Roll in palms of hands gently; Do not shake `vigorou sly. "Single Patient Use Only " WASTE: F/P - Black; E - [facility] [address] able for 28 days at room temperature.Expires in days from Da te Start Date: 01/21/18 Stop Date: 01/23/18 Status: Discontinued insulin lispro 4 unit, 0.04 mL, Route: SUB-Q, Drug form: SOLN, TID-Before Meals, Dosing Weight 59.091, kg, PRN Blood Glucose Results, Start date: 01/21/18 17:44:00 PAINT STOCK CLERK, Durati on: 30 day, Stop date: 02/20/18 17:43:00 PAINT STOCK CLERK Notes: (Same as: Humalog ) Roll in palms of hands gently; Do not shake `vigorou sly. "Single Patient Use Only " WASTE: F/P - Black; E - [facility] [facility] St able for 28 days at room temperature.Expires in days from Da te Start Date: 01/21/18 Stop Date: 01/23/18 Status: Discontinued insulin lispro 6 unit, 0.06 mL, Route: SUB-Q, Drug form: SOLN, TID-Before Meals, Dosing Weight 59.091, kg, PRN Blood Glucose Results, Start date: 01/21/18 17:44:00 PAINT STOCK CLERK, Durati on: 30 day, Stop date: 02/20/18 17:43:00 PAINT STOCK CLERK Notes: (Same as: Humalog ) Roll in palms of hands gently; Do not shake `vigorou sly. "Single Patient Use Only " WASTE: F/P - Black; E - [facility] Trash [facility] St able for 28 days at room temperature.Expires in days from Da te Start Date: 01/21/18 Stop Date: 01/23/18 Status: Discontinued insulin lispro 3 unit, 0.03 mL, Route: SUB-Q, Drug form: SOLN, Sliding Scale, Dosing Weight 59. 091, kg, PRN Blood Glucose Results, Start date: 01/23/18 21:46:00 PAINT STOCK CLERK, Duration: 30 day, Stop date: 02/22/18 21:45:00 PAINT STOCK CLERK Notes: (Same as: Humalog ) Roll in palms of hands gently; Do not shake `vigorou sly. "Single Patient Use Only " WASTE: F/P - Black; E - [facility] Tr[facility] St able for 28 days at room temperature.Expires in days from Da te Start Date: 01/23/18 Stop Date: 01/26/18 Status: Discontinued insulin lispro 12 unit, 0.12 mL, Route: SUB-Q, Drug form: SOLN, Sliding Scale, Dosing Weight 59 .091, kg, PRN Blood Glucose Results, Start date: 01/23/18 21:46:00 PAINT STOCK CLERK, Duration : 30 day, Stop date: 02/22/18 21:45:00 PAINT STOCK CLERK Notes: (Same as: Humalog ) Roll in palms of hands gently; Do not shake `vigorou sly. "Single Patient Use Only " WASTE: F/P - Black; E - [facility] Tr[facility] St able for 28 days at room temperature.Expires in days from Da te Start Date: 01/23/18 Stop Date: 01/26/18 Status: Discontinued insulin lispro 15 unit, 0.15 mL, Route: SUB-Q, Drug form: SOLN, Sliding Scale, Dosing Weight 59 .091, kg, PRN Blood Glucose Results, Start date: 01/23/18 21:46:00 PAINT STOCK CLERK, Duration : 30 day, Stop date: 02/22/18 21:45:00 PAINT STOCK CLERK Notes: (Same as: Humalog ) Roll in palms of hands gently; Do not shake `vigorou sly. "Single Patient Use Only " WASTE: F/P - Black; E - [facility] Tr[facility] St able for 28 days at room temperature.Expires in days from Da te Start Date: 01/23/18 Stop Date: 01/26/18 Status: Discontinued insulin lispro 6 unit, 0.06 mL, Route: SUB-Q, Drug form: SOLN, Sliding Scale, Dosing Weight 59. 091, kg, PRN Blood Glucose Results, Start date: 01/23/18 21:46:00 PAINT STOCK CLERK, Duration: 30 day, Stop date: 02/22/18 21:45:00 PAINT STOCK CLERK Notes: (Same as: Humalog ) Roll in palms of hands gently; Do not shake `vigorou sly. "Single Patient Use Only " WASTE: F/P - Black; E - [facility] Tr[facility] St able for 28 days at room temperature.Expires in days from Da te Start Date: 01/23/18 Stop Date: 01/26/18 Status: Discontinued insulin lispro 9 unit, 0.09 mL, Route: SUB-Q, Drug form: SOLN, Sliding Scale, Dosing Weight 59. 091, kg, PRN Blood Glucose Results, Start date: 01/23/18 21:46:00 PAINT STOCK CLERK, Duration: 30 day, Stop date: 02/22/18 21:45:00 PAINT STOCK CLERK Notes: (Same as: Humalog ) Roll in palms of hands gently; Do not shake `vigorou sly. "Single Patient Use Only " WASTE: F/P - Black; E - Municipal Trash [facility] St able for 28 days at room temperature.Expires in days from Da te Start Date: 01/23/18 Stop Date: 01/26/18 Status: Discontinued K-Dur 20 40 mEq, 2 tab, Route: PO, Drug form: ERTAB, BID, Dosing Weight 59.091, kg, Prior ity: Routine, Start date: 01/24/18 18:30:00 PAINT STOCK CLERK, Duration: 1 doses or times, Sto p date: 01/24/18 18:30:00 PAINT STOCK CLERK Notes: (Same as: K-Dur 20)"Do Not Crush" Give with food and full glass of water For patients unable to swallow tablet, dissolve in one half glass of water. Allo w about 2 minutes for the tablets to disintegrate. Stir before giving to prepare slurry and administer.Please exclude Patients with feeding tube less than 14 [place] (Dobhoff, J-tube etc) and pediatric and patients. Start Date: 01/24/18 Stop Date: 01/24/18 Status: Completed Levemir FlexPen 15 unit, Route: SUB-Q, Bedtime, Dosing Weight 59.091, kg, Start date: 01/25/18 2 1:00:00 PAINT STOCK CLERK, Duration: 30 day, Stop date: 02/23/18 21:00:00 PAINT STOCK CLERK Start Date: 01/25/18 Stop Date: 01/25/18 Status: Deleted LORazepam 0.5 mg, 1 tab, Route: PO, Drug form: TAB, BID, Dosing Weight 59.091, kg, PRN Anx iety, Start date: 01/21/18 12:38:00 PAINT STOCK CLERK, Duration: 30 day, Stop date: 02/20/18 1 2:37:00 PAINT STOCK CLERK Notes: (Same as: Ativan) Start Date: 01/21/18 Stop Date: 02/13/18 Status: Discontinued magnesium sulfate 2 gm in Water 50 ml 2 gm, 50 mL, Route: IV, Drug form: INJ, ONCE, Dosing Weight 59.091, kg, Start da te: 01/22/18 6:43:00 PAINT STOCK CLERK, Stop date: 01/22/18 6:43:00 PAINT STOCK CLERK Notes: WASTE: F/P - Sink; E - Municipal Trash Bin Start Date: 01/22/18 Stop Date: 01/22/18 Status: Completed magnesium sulfate 2gm / NS 50ml (premixed) 2 gm, 50 mL, Route: IVPB, Drug form: INJ, ONCE, Dosing Weight 59.091, kg, Start date: 01/21/18 12:32:00 PAINT STOCK CLERK, Stop date: 01/21/18 12:32:00 PAINT STOCK CLERK Notes: WASTE: F/P - Sink; E - Municipal Trash Bin Start Date: 01/21/18 Stop Date: 01/21/18 Status: Completed magnesium sulfate 2gm / NS 50ml (premixed) 2 gm, 50 mL, Route: IVPB, Drug form: INJ, ONCE, Dosing Weight 59.091, kg, Start date: 01/26/18 13:19:00 PAINT STOCK CLERK, Stop date: 01/26/18 13:19:00 PAINT STOCK CLERK Notes: WASTE: F/P - Sink; E - Municipal Trash Bin Start Date: 01/26/18 Stop Date: 01/26/18 Status: Completed melatonin 3 mg, 1 tab, Route: PO, Drug form: TAB, Bedtime, Dosing Weight 59.091, kg, PRN I nsomnia, Start date: 01/21/18 9:40:00 PAINT STOCK CLERK, Duration: 30 day, Stop date: 02/20/18 9:39:00 PAINT STOCK CLERK Notes: (Same as: Melatonin) Start Date: 01/21/18 Stop Date: 02/13/18 Status: Discontinued meropenem + sterile water 10 mL 500 mg, Route: IV, ONCE, Start date: 02/07/18 8:06:00 PAINT STOCK CLERK, Stop date: 02/07/18 8 :06:00 PAINT STOCK CLERK, ABX Indication: Bacteremia Notes: Same as Merrem MEDICATION WASTE Product Size: 500 mgProduct Wast ed: ___ mg Start Date: 02/07/18 Stop Date: 02/07/18 Status: Completed Merrem + Sodium Chloride 0.9% IV 100 mL 500 mg, Route: IVPB, ABXQ8H, Dosing Weight 59.091, kg, CrCL >=50ml/min, Extended infusion, infuse over 3 hours, Start date: 02/07/18 16:00:00 PAINT STOCK CLERK, Duration: 10 day, Stop date: 02/17/18 10:00:00 PAINT STOCK CLERK, ABX Indication: Bacteremia Notes: Same as Merrem MEDICATION WASTE Product Size: 500 mgProduct Wast ed: ___ mg Start Date: 02/07/18 Stop Date: 02/13/18 Status: Discontinued metoprolol 5 mg/5 ml INJ 5 mg, Route: IVP, Drug form: INJ, ONCE, Dosing Weight 59.091, kg, Priority: STAT , Start date: 01/21/18 9:37:00 PAINT STOCK CLERK, Stop date: 01/21/18 9:37:00 PAINT STOCK CLERK Start Date: 01/21/18 Stop Date: 01/21/18 Status: Completed Metoprolol Succinate ER 50 mg oral tablet, extended release 50 mg=1 tab, PO, Daily, TAKE 1 TABLET BY MOUTH EVERY DAY Start Date: 01/21/18 Status: Ordered morphine Sulfate 2 mg, 1 mL, Route: IV, Drug form: SOLN, Q4H, Dosing Weight 59.091, kg, PRN Pain Score 6-10, Start date: 01/21/18 17:41:00 PAINT STOCK CLERK, Duration: 30 day, Stop date: 02/11 17:40:00 PAINT STOCK CLERK Start Date: 01/21/18 Stop Date: 02/13/18 Status: Discontinued morphine Sulfate 4 mg, 1 mL, Route: IVP, Drug form: SOLN, Q4H, Dosing Weight 59.091, kg, PRN Pain Score 7-10, Start date: 01/21/18 12:35:00 PAINT STOCK CLERK, Duration: 30 day, Stop date: 11/29 12:34:00 PAINT STOCK CLERK Notes: (Same as:MORPhine Sulfate) Start Date: 01/21/18 Stop Date: 01/21/18 Status: Discontinued morphine Sulfate 4 mg, 1 mL, Route: IVP, Drug form: SOLN, ONCE, Dosing Weight 59.091, kg, Priorit y: STAT, Start date: 01/21/18 8:05:00 PAINT STOCK CLERK, Stop date: 01/21/18 8:05:00 PAINT STOCK CLERK Notes: (Same as:MORPhine Sulfate) Start Date: 01/21/18 Stop Date: 01/21/18 Status: Completed morphine Sulfate 4 mg, Route: IVP, ONCE, Dosing Weight 59.091, kg, Start date: 01/21/18 10:30:00 PAINT STOCK CLERK, Stop date: 01/21/18 10:30:00 PAINT STOCK CLERK Start Date: 01/21/18 Stop Date: 01/21/18 Status: Completed morphine Sulfate 4 mg, Route: IVP, ONCE, Dosing Weight 59.091, kg, Priority: STAT, Start date: 6:36:00 PAINT STOCK CLERK, Stop date: 01/21/18 6:36:00 PAINT STOCK CLERK Start Date: 01/21/18 Stop Date: 01/21/18 Status: Completed [place] 5/325 oral tablet 1 tab, Route: PO, Drug Form: TAB, Dosing Weight 59.091, kg, Q6H, PRN Pain Score 1-3, Start date: 01/21/18 12:35:00 PAINT STOCK CLERK, Duration: 30 day, Stop date: 02/20/18 12 :34:00 PAINT STOCK CLERK Notes: (Same as: [place] 325/5) Do not exceed 4gm/day of acetaminophen. Start Date: 01/21/18 Stop Date: 02/13/18 Status: Discontinued NS (Bolus) IV 1,000 mL, 500 ml/hr, Infuse Over: 2 hr, Route: IV, 1,000, Drug form: INJ, ONCE, Priority: STAT, Dosing Weight 59.091 kg, Start date: 01/21/18 17:39:00 PAINT STOCK CLERK, Stop date: 01/21/18 17:39:00 PAINT STOCK CLERK Start Date: 01/21/18 Stop Date: 01/21/18 Status: Completed NS (Bolus) IV 1,000 mL, 500 ml/hr, Infuse Over: 2 hr, Route: IV, 1,000, Drug form: INJ, ONCE, Priority: STAT, Dosing Weight 59.091 kg, Start date: 01/21/18 12:33:00 PAINT STOCK CLERK, Stop date: 01/21/18 12:33:00 PAINT STOCK CLERK Start Date: 01/21/18 Stop Date: 01/21/18 Status: Completed NS 1,000 mL 1,000 mL, Rate: 125 ml/hr, Infuse over: 8 hr, Route: IV, Dosing Weight 59.091 kg , Total Volume: 1,000, Start date: 01/21/18 10:10:00 PAINT STOCK CLERK, Duration: 30 day, Stop date: 02/20/18 10:09:00 PAINT STOCK CLERK, 1.58, m2 Start Date: 01/21/18 Stop Date: 01/22/18 Status: Discontinued NS 500 mL 500 mL, Rate: 1,000 ml/hr, Infuse over: 0.5 hr, Route: IV, Dosing Weight 59.091 kg, Total Volume: 500, Start date: 01/21/18 10:10:00 PAINT STOCK CLERK, Duration: 1 doses or t imes, Stop date: 01/21/18 14:09:00 PAINT STOCK CLERK, Bolus Dose, 1.58, m2 Start Date: 01/21/18 Stop Date: 01/21/18 Status: Completed ondansetron 4 mg, 2 mL, Route: IVP, Drug form: INJ, Q8H, Dosing Weight 59.091, kg, PRN Nause a & Vomiting, Start date: 01/21/18 9:40:00 PAINT STOCK CLERK, Duration: 30 day, Stop date: 02/20/18 9:39:00 PAINT STOCK CLERK Notes: (Same as: Zofran) MEDICATION WASTE Product Size: 4 mgProduct Was paul: ___ mg Start Date: 01/21/18 Stop Date: 02/13/18 Status: Discontinued ondansetron 4 mg, Route: IVP, Drug form: INJ, ONCE, Dosing Weight 59.091, kg, Priority: STAT , Start date: 01/21/18 6:36:00 PAINT STOCK CLERK, Stop date: 01/21/18 6:36:00 PAINT STOCK CLERK Start Date: 01/21/18 Stop Date: 01/21/18 Status: Completed Phenergan + Sodium Chloride 0.9% IV 50 mL 12.5 mg, 0.5 mL, Route: IVPB, Q6H, Dosing Weight 59.091, kg, PRN as needed for n ausea/vomiting, Start date: 01/21/18 17:41:00 PAINT STOCK CLERK, Duration: 30 day, Stop date: 02/20/18 17:40:00 PAINT STOCK CLERK Notes: Do not give IV push. (Same as: Phenergan) Start Date: 01/21/18 Stop Date: 02/13/18 Status: Discontinued Phenergan + Sodium Chloride 0.9% IV 50 mL 25 mg, 1 mL, Route: IVPB, Q6H, Dosing Weight 59.091, kg, PRN Nausea & Vomiting, Start date: 01/21/18 12:37:00 PAINT STOCK CLERK, Duration: 30 day, Stop date: 02/20/18 12:36:00 PAINT STOCK CLERK Notes: Do not give IV push. (Same as: Phenergan) Start Date: 01/21/18 Stop Date: 01/21/18 Status: Discontinued potassium chloride 40 mEq, 30 mL, Route: PO, Drug form: LIQ, BID, Dosing Weight 59.091, kg, Priorit y: Routine, Start date: 01/24/18 9:00:00 PAINT STOCK CLERK, Duration: 2 doses or times, Stop d ate: 01/24/18 17:00:00 PAINT STOCK CLERK Notes: (Same as: Potassium Chloride) Start Date: 01/24/18 Stop Date: 01/24/18 Status: Completed predniSONE 60 mg, 3 tab, Route: PO, Drug form: TAB, Daily, Dosing Weight 59.091, kg, Priori ty: NOW, Start date: 02/12/18 13:23:00 PAINT STOCK CLERK, Duration: 5 day, Stop date: 02/17/18 9:00:00 PAINT STOCK CLERK Notes: Take with food. Start Date: 02/12/18 Stop Date: 02/13/18 Status: Discontinued Protonix 40 mg, 1 tab, Route: PO, Drug form: ECTAB, Daily, Dosing Weight 59.091, kg, Star t date: 01/22/18 9:00:00 PAINT STOCK CLERK, Duration: 30 day, Stop date: 02/20/18 9:00:00 PAINT STOCK CLERK Notes: Tablet should not be chewed or crushed.(Same as: Protonix) Start Date: 01/22/18 Stop Date: 01/24/18 Status: Discontinued Protonix 40 mg, 1 tab, Route: PO, Drug form: ECTAB, BID, Dosing Weight 59.091, kg, Start date: 01/24/18 17:00:00 PAINT STOCK CLERK, Duration: 30 day, Stop date: 02/23/18 9:00:00 PAINT STOCK CLERK Notes: Tablet should not be chewed or crushed.(Same as: Protonix) Start Date: 01/24/18 Stop Date: 02/13/18 Status: Discontinued senna 17.2 mg, 2 tab, Route: PO, Drug Form: TAB, Dosing Weight 59.091, kg, Bedtime, St art date: 01/21/18 21:00:00 PAINT STOCK CLERK, Duration: 30 day, Stop date: 02/19/18 21:00:00 PAINT STOCK CLERK Notes: (Same as: Senokot) Start Date: 01/21/18 Stop Date: 02/13/18 Status: Discontinued sertraline 100 mg, 1 tab, Route: PO, Drug form: TAB, Daily, Dosing Weight 59.091, kg, Start date: 01/22/18 9:00:00 PAINT STOCK CLERK, Duration: 30 day, Stop date: 03/22/18 9:00:00 PAINT STOCK CLERK Notes: (Same as: Zoloft) Start Date: 01/22/18 Stop Date: 02/13/18 Status: Discontinued sodium bicarbonate 325 mg oral tablet 650 mg, 1 tab, Route: PO, Drug form: TAB, BID, Dosing Weight 59.091, kg, Start d ate: 02/12/18 9:00:00 PAINT STOCK CLERK, Duration: 30 day, Stop date: 03/13/18 17:00:00 PAINT STOCK CLERK Notes: "Dissolve tablet in a glass of water prior to oral administration. STOMA [facility] WARNING: To avoid serious injury, do not take until tablet is completely diss olved. It is very important not to take this product when overly full from food or drink." Start Date: 02/12/18 Stop Date: 02/13/18 Status: Discontinued sodium bicarbonate 8.4% 50 mEq, 50 ml, Route: IVP, Drug Form: INJ, Dosing Weight 59.091, kg, ONCE, Start date: 01/22/18 6:44:00 PAINT STOCK CLERK, Stop date: 01/22/18 6:44:00 PAINT STOCK CLERK Notes: (sodium bicarb 8.4% (1 mEq/ml) 50 ml syringe) Start Date: 01/22/18 Stop Date: 01/22/18 Status: Completed sodium bicarbonate 8.4% additive 150 mEq + sterile water INJ 1000 ml 1,000 mL 1,000 mL, Rate: 125 ml/hr, Infuse over: 9.2 hr, Route: IV, Dosing Weight 59.091 kg, Total Volume: 1,150, Start date: 01/22/18 6:43:00 PAINT STOCK CLERK, Duration: 30 day, Sto p date: 02/21/18 6:42:00 PAINT STOCK CLERK, 1.58, m2 Notes: (sodium bicarb 8.4% (1 mEq/ml) 50 ml VL) Start Date: 01/22/18 Stop Date: 01/24/18 Status: Discontinued sodium bicarbonate 8.4% additive 75 mEq + 1/2 NS 1,000 mL 1,000 mL, Rate: 70 ml/hr, Infuse over: 15.4 hr, Route: IV, Dosing Weight 59.091 kg, Total Volume: 1,075, Start date: 01/31/18 10:34:00 PAINT STOCK CLERK, Duration: 30 day, St op date: 03/02/18 10:33:00 PAINT STOCK CLERK, 1.58, m2 Notes: (sodium bicarb 8.4% (1 mEq/ml) 50 ml VL) Start Date: 01/31/18 Stop Date: 02/04/18 Status: Discontinued sodium bicarbonate 8.4% additive 75 mEq + D5W 1/2NS 1,000 mL 1,000 mL, Rate: 75 ml/hr, Infuse over: 14.3 hr, Route: IV, Dosing Weight 59.091 kg, Total Volume: 1,075, Start date: 02/12/18 7:59:00 PAINT STOCK CLERK, Duration: 30 day, Sto p date: 03/14/18 7:58:00 PAINT STOCK CLERK, 1.58, m2 Notes: (sodium bicarb 8.4% (1 mEq/ml) 50 ml VL) Start Date: 02/12/18 Stop Date: 02/13/18 Status: Discontinued Sodium Chloride 0.9% (Bolus) IV 1,000 mL, 1000 ml/hr, Infuse Over: 1 hr, Route: IV, 1,000, Drug form: INJ, ONCE, Priority: STAT, Dosing Weight 59.091 kg, Start date: 01/21/18 7:58:00 PAINT STOCK CLERK, Stop date: 01/21/18 7:58:00 PAINT STOCK CLERK Start Date: 01/21/18 Stop Date: 01/21/18 Status: Completed Sodium Chloride 0.9% (Bolus) IV 1,000 mL, Infuse Over: 1 hr, Route: IV, ONCE, Priority: STAT, Dosing Weight 59.0 91 kg, Start date: 01/21/18 6:36:00 PAINT STOCK CLERK, Stop date: 01/21/18 6:36:00 PAINT STOCK CLERK Start Date: 01/21/18 Stop Date: 01/21/18 Status: Completed Sodium Chloride 0.9% IV 1,000 mL 1,000 mL, Rate: 25 ml/hr, Infuse over: 40 hr, Route: IV, Dosing Weight 59.091 kg , Total Volume: 1,000, Start date: 01/23/18 8:24:00 PAINT STOCK CLERK, Duration: 1 day, Stop d ate: 01/24/18 8:23:00 PAINT STOCK CLERK, 1.58, m2 Start Date: 01/23/18 Stop Date: 01/23/18 Status: Discontinued sucralfate 1 gm, 1 tab, Route: PO, Drug form: TAB, QID, Dosing Weight 59.091, kg, Start fatimah e: 01/23/18 9:00:00 PAINT STOCK CLERK, Duration: 30 day, Stop date: 02/21/18 21:00:00 PAINT STOCK CLERK Notes: May interfere w/enteral feeds - Take 1 hr before or 2 hr after antacids, dairy pdt, meals & minerals - On empty stomach.For patients unable to swallow tablet, dissolve in 10mL - 30mL of water or juice and stir before giving. (Same As: Carafate) Start Date: 01/23/18 Stop Date: 02/13/18 Status: Discontinued Toprol-XL 25 mg oral tablet, extended release 25 mg, 1 tab, Route: PO, Drug form: ERTAB, Daily, Start date: 01/22/18 9:00:[address], Duration: 30 day, Stop date: 03/22/18 9:00:00 PAINT STOCK CLERK Notes: (Same as: Toprol XL) Do Not Crush Start Date: 01/22/18 Stop Date: 02/13/18 Status: Discontinued Urocit-K 10 mEq, 1 tab, Route: PO, Drug form: ERTAB, TID-Meals, Dosing Weight 59.091, kg, Start date: 02/13/18 17:00:00 PAINT STOCK CLERK, Duration: 30 day, Stop date: 03/15/18 12:00: 00 PAINT STOCK CLERK Start Date: 02/13/18 Stop Date: 02/13/18 Status: Discontinued Results 1 2 3 Most recent to oldest [Reference Range]: 3.9 K/CMM (02/11/18 5:56 AM) 5.2 K/CMM (02/04/18 5:51 AM) 8.2 K/CMM *HI* (02/01/18 5:52 AM) Neutrophils # [1.5-8.1 K/CMM] 2.1 K/CMM (02/11/18 5:56 AM) 1.7 K/CMM (02/04/18 5:51 AM) 2.1 K/CMM (02/01/18 5:52 AM) Lymphocytes # [1.0-5.5 K/CMM] 0.7 K/CMM (02/11/18 5:56 AM) 0.5 K/CMM (02/04/18 5:51 AM) 0.8 K/CMM (02/01/18 5:52 AM) Monocytes # [0.0-0.8 K/CMM] 0.2 K/CMM (02/11/18 5:56 AM) 0.1 K/CMM (02/04/18 5:51 AM) 0.2 K/CMM (02/01/18 5:52 AM) Eosinophils # [0.0-0.5 K/CMM] 0.1 K/CMM (02/01/18 5:52 AM) 0.1 K/CMM (01/24/18 3:41 AM) Basophils # [0.0-0.2 K/CMM] 53 pg/mL (01/21/18 7:35 AM) BNP [<=100 pg/mL] Normal (01/23/18 6:15 AM) Normal (01/21/18 6:39 AM) Plt Morph 52 mL/min/1.73m2 1 *NA* (02/13/18 7:10 AM) 61 mL/min/1.73m2 2 *NA* (02/11/18 5:56 AM) 38 mL/min/1.73m2 3 *NA* (02/05/18 6:49 AM) eGFR 0.6 *LOW* (01/22/18 4:29 AM) 0.6 *LOW* (01/21/18 6:39 AM) A/G Ratio [0.7-1.6] 2.7 g/dL *LOW* (01/22/18 4:29 AM) 3.2 g/dL *LOW* (01/21/18 6:39 AM) Albumin Lvl [3.5-5.0 g/dL] 79 unit/L (01/22/18 4:29 AM) 104 unit/L (01/21/18 6:39 AM) Alk Phos [39-136 unit/L] 11 unit/L (01/22/18 4:29 AM) 15 unit/L (01/21/18 6:39 AM) ALT [0-65 unit/L] 15.6 mEq/L (02/13/18 7:10 AM) 12.6 mEq/L (02/11/18 5:56 AM) 13.6 mEq/L (02/05/18 6:49 AM) AGAP [10.0-20.0 mEq/L] 13 unit/L (01/22/18 4:29 AM) 14 unit/L (01/21/18 6:39 AM) AST [0-37 unit/L] 17 (01/22/18 4:29 AM) 14 (01/21/18 6:39 AM) B/C Ratio [6-25] 0.5 % (02/11/18 5:56 AM) 0.6 % (02/04/18 5:51 AM) 1.2 % *HI* (02/01/18 5:52 AM) Basophils [0.0-1.0 %] 11 mg/dL (02/13/18 7:10 AM) 8 mg/dL (02/11/18 5:56 AM) 13 mg/dL (02/05/18 6:49 AM) BUN [7-22 mg/dL] 6.9 mg/dL 4 *CRIT* (02/13/18 7:10 AM) 6.5 mg/dL 5 *CRIT* (02/11/18 5:56 AM) 7.6 mg/dL *LOW* (02/05/18 6:49 AM) Calcium Lvl [8.5-10.5 mg/dL] 113 mEq/L *HI* (02/13/18 7:10 AM) 118 mEq/L *HI* (02/11/18 5:56 AM) 102 mEq/L (02/05/18 6:49 AM) Chloride Lvl [95-109 mEq/L] 19 mEq/L *LOW* (02/13/18 7:10 AM) 15 mEq/L *LOW* (02/11/18 5:56 AM) 28 mEq/L (02/05/18 6:49 AM) CO2 [24-32 mEq/L] 1.10 mg/dL (02/13/18 7:10 AM) 0.96 mg/dL (02/11/18 5:56 AM) 1.42 mg/dL *HI* (02/05/18 6:49 AM) Creatinine Lvl [0.50-1.40 mg/dL] 2.9 % (02/11/18 5:56 AM) 1.2 % (02/04/18 5:51 AM) 1.5 % (02/01/18 5:52 AM) Eosinophils [0.0-4.0 %] 4.7 g/dL *HI* (01/22/18 4:29 AM) 5.5 g/dL *HI* (01/21/18 6:39 AM) Globulin [2.7-4.2 g/dL] 299 mg/dL *HI* (02/13/18 7:10 AM) 80 mg/dL (02/11/18 5:56 AM) 112 mg/dL *HI* (02/05/18 6:49 AM) Glucose Lvl [70-99 mg/dL] 22.6 % *LOW* (02/11/18 5:56 AM) 24.2 % *LOW* (02/04/18 5:51 AM) 24.4 % *LOW* (02/01/18 5:52 AM) Hct [36.0-48.0 %] 7.5 g/dL *LOW* (02/11/18 5:56 AM) 8.1 g/dL *LOW* (02/04/18 5:51 AM) 8.1 g/dL *LOW* (02/01/18 5:52 AM) Hgb [12.0-16.0 g/dL] 1.16 (01/22/18 2:23 PM) 1.24 *HI* (01/21/18 7:00 AM) INR [0.85-1.17] 3.6 mEq/L (02/13/18 7:10 AM) 3.6 mEq/L (02/11/18 5:56 AM) 3.6 mEq/L (02/05/18 6:49 AM) Potassium Lvl [3.5-5.1 mEq/L] 345 unit/L (01/22/18 4:29 AM) 577 unit/L *HI* (01/21/18 6:39 AM) Lipase Lvl [73-393 unit/L] 30.3 % (02/11/18 5:56 AM) 22.7 % (02/04/18 5:51 AM) 18.5 % *LOW* (02/01/18 5:52 AM) Lymphocytes [20.0-40.0 %] 29.3 pg (02/11/18 5:56 AM) 29.4 pg (02/04/18 5:51 AM) 29.8 pg (02/01/18 5:52 AM) MCH [27.0-31.0 pg] 33.0 g/dL (02/11/18 5:56 AM) 33.5 g/dL (02/04/18 5:51 AM) 33.3 g/dL (02/01/18 5:52 AM) MCHC [32.0-36.0 g/dL] 88.6 fL (02/11/18 5:56 AM) 87.8 fL (02/04/18 5:51 AM) 89.7 fL (02/01/18 5:52 AM) MCV [80.0-98.0 fL] 2.5 mg/dL *HI* (01/27/18 4:42 AM) 1.5 mg/dL *LOW* (01/26/18 4:10 AM) 1.6 mg/dL *LOW* (01/25/18 6:25 AM) Magnesium Lvl [1.8-2.4 mg/dL] 10.1 % (02/11/18 5:56 AM) 6.9 % (02/04/18 5:51 AM) 6.7 % (02/01/18 5:52 AM) Monocytes [2.0-12.0 %] 7.0 fL *LOW* (02/11/18 5:56 AM) 6.9 fL *LOW* (02/04/18 5:51 AM) 7.8 fL (02/01/18 5:52 AM) MPV [7.4-10.4 fL] 144 mEq/L (02/13/18 7:10 AM) 142 mEq/L (02/11/18 5:56 AM) 140 mEq/L (02/05/18 6:49 AM) Sodium Lvl [135-145 mEq/L] 2.9 mg/dL (02/11/18 5:56 AM) 3.4 mg/dL (01/27/18 4:42 AM) 2.1 mg/dL *LOW* (01/26/18 4:10 AM) Phosphorus [2.5-4.5 mg/dL] 264 K/CMM (02/11/18 5:56 AM) 355 K/CMM (02/04/18 5:51 AM) 303 K/CMM (02/01/18 5:52 AM) Platelet [133-450 K/CMM] 56.2 % (02/11/18 5:56 AM) 68.6 % (02/04/18 5:51 AM) 72.1 % (02/01/18 5:52 AM) Segs [45.0-75.0 %] 7.4 g/dL (01/22/18 4:29 AM) 8.7 g/dL *HI* (01/21/18 6:39 AM) Total Protein [6.4-8.4 g/dL] 14.6 seconds (01/22/18 2:23 PM) 15.4 seconds *HI* (01/21/18 7:00 AM) PT [12.0-14.7 seconds] 29.1 seconds (01/22/18 2:23 PM) 35.1 seconds (01/21/18 7:00 AM) PTT [22.9-35.8 seconds] 2.55 M/CMM *LOW* (02/11/18 5:56 AM) 2.76 M/CMM *LOW* (02/04/18 5:51 AM) 2.72 M/CMM *LOW* (02/01/18 5:52 AM) RBC [4.20-5.40 M/CMM] Normal (01/23/18 6:15 AM) Normal (01/21/18 6:39 AM) RBC Morph 15.4 % *HI* (02/11/18 5:56 AM) 14.8 % *HI* (02/04/18 5:51 AM) 15.5 % *HI* (02/01/18 5:52 AM) RDW [11.5-14.5 %] 0.6 mg/dL (01/22/18 4:29 AM) 0.4 mg/dL (01/21/18 6:39 AM) Bili Total [0.2-1.3 mg/dL] 361 mg/dL *HI* (01/25/18 6:25 AM) Trig [<=149 mg/dL] <0.02 ng/mL (01/21/18 6:39 AM) Troponin-I [0.00-0.40 ng/mL] Few /HPF *NA* (02/07/18 10:19 PM) UA Bacteria [None Seen /HPF] Negative *NA* (02/07/18 10:19 PM) Negative *NA* (01/21/18 3:14 PM) Negative *NA* (01/21/18 6:50 AM) UA Bili [Negative] Negative (02/07/18 10:19 PM) Small *ABN* (01/21/18 3:14 PM) Negative (01/21/18 6:50 AM) UA Blood [Negative] Yellow *NA* (02/07/18 10:19 PM) Yellow *NA* (01/21/18 6:50 AM) UA Color [Yellow] Maggy *NA* (01/21/18 3:14 PM) UA Color 114.00 mg/dL *NA* (02/01/18 2:15 PM) 114.00 mg/dL *NA* (01/21/18 3:14 PM) U Creatinine 50 mg/dL *ABN* (02/07/18 10:19 PM) 150 mg/dL *ABN* (01/21/18 3:14 PM) UA Glucose [Negative mg/dL] Negative (01/21/18 6:50 AM) UA Glucose [Negative] Negative *NA* (02/07/18 10:19 PM) Trace *ABN* (01/21/18 3:14 PM) Negative *NA* (01/21/18 6:50 AM) UA Ketones [Negative] Large *ABN* (02/07/18 10:19 PM) Large *ABN* (01/21/18 3:14 PM) Negative (01/21/18 6:50 AM) UA Leuk Est [Negative] Few /LPF *NA* (01/21/18 3:14 PM) Few /LPF *NA* (01/21/18 6:50 AM) UA Mucus [None Seen /LPF] Negative (02/07/18 10:19 PM) Negative (01/21/18 3:14 PM) Negative (01/21/18 6:50 AM) UA Nitrite [Negative] 6.0 (02/07/18 10:19 PM) 5.0 (01/21/18 3:14 PM) UA pH [5.0-8.0] 6.5 (01/21/18 6:50 AM) UA pH [5.0-8.0] >=300 mg/dL *ABN* (02/07/18 10:19 PM) 100 mg/dL *ABN* (01/21/18 3:14 PM) UA Protein [Negative mg/dL] Negative (01/21/18 6:50 AM) UA Protein [Negative] 10 /HPF *HI* (02/07/18 10:19 PM) 52 /HPF *HI* (01/21/18 3:14 PM) 4 /HPF *HI* (01/21/18 6:50 AM) UA RBC [0-2 /HPF] 10 mEq/L *NA* (02/01/18 2:15 PM) 41 mEq/L *NA* (01/21/18 3:14 PM) U Sodium 1.017 (02/07/18 10:19 PM) 1.013 (01/21/18 3:14 PM) UA Spec Grav [<=1.030] 1.020 (01/21/18 6:50 AM) UA Spec Grav [<=1.030] Occasional /LPF *NA* (02/07/18 10:19 PM) Occasional /LPF (01/21/18 3:14 PM) Many /LPF *ABN* (01/21/18 6:50 AM) UA Sq Epi [Few /LPF] Marked *ABN* (02/07/18 10:19 PM) Marked *ABN* (01/21/18 3:14 PM) Slight *ABN* (01/21/18 6:50 AM) UA Turbidity [Clear] <=1.0 mg/dL *NA* (02/07/18 10:19 PM) <=1.0 mg/dL *NA* (01/21/18 3:14 PM) UA Urobilinogen [0.1-1.0 mg/dL] 0.2 EU/dL 6 (01/21/18 6:50 AM) UA Urobilinogen [0.1-1.0 EU/dL] >182 /HPF *HI* (02/07/18 10:19 PM) >182 /HPF *HI* (01/21/18 3:14 PM) 2 /HPF (01/21/18 6:50 AM) UA WBC [0-5 /HPF] Many /HPF *ABN* (01/21/18 3:14 PM) UA [place] Yeast [None Seen /HPF] 7.0 K/CMM (02/11/18 5:56 AM) 7.6 K/CMM (02/04/18 5:51 AM) 11.4 K/CMM *HI* (02/01/18 5:52 AM) WBC [3.7-10.4 K/CMM] Performed (02/07/18 10:19 PM) Performed (01/21/18 3:14 PM) Micro? 1Result Comment: The eGFR is calculated using [...] BMI. 4Result Comment: Critical Result(s) called to Ilana Aguayo at 02/13/2018 07:53 by DMF. Read back OK. 5Result Comment: Critical Result(s) called to kelly mccloud at 02/11/2018 07:06 by EFA. Read back OK. 6Result Comment: Urobilinogen performed on the Clinitek analyzer. 01/21/2018 07:27 AGUILAR Microbiology Reports TEST: Culture: Urine STATUS: Auth (Verified) BODY SITE: SOURCE: U Bladder COLLECTED DATE/TIME: 02/07/18 10:19 PM FINAL REPORT No Growth Immunizations No data available for this section [...] 02/25/18 Assessment and Plan Extracted from: Title: Discharge Summary * Author: Joshua Healy MD Date: 02/13/18 Discharge Information depo: home condition: stable reg diet Extracted from: Title: Clinical Document Author: John Oreilly MD Date: 02/13/18 Progress Note - Daily [facility] Completed: Feb, 16:13 by John Oreilly MD RM: 314 - 1P, SE [id number] MIGUEL [id number] (: 1950) F Attending: Joshua Healy MDPhone: Service: Internal Medicine Reason for Admission: MAGI Working DRG: Code status: Full CodeCurrent diet: Isolation: No Isolation/Standard Precautions Allergies: ibuprofen, Motrin SUBJECTIVE OBJECTIVE 24hr Labs 02/13 1125 POC Performing LocatioSee Note Glucose CLJ210 H 02/13 0841 POC Performing LocatioSee Note Glucose JLE035 H 02/13 0710 Glucose Szy177 H BUN11 Creatinine Lvl1.10 Sodium Hfl298 Potassium Lvl3.6 Chloride Pfq422 H CO219 L AGAP15.6 Calcium Lvl6.9 C eGFR52 02/13 0237 POC Performing LocatioSee Note Glucose YCJ869 H 02/12 2151 POC Performing LocatioSee Note Glucose QWF374 H 02/12 1639 POC Performing LocatioSee Note Glucose ENE231 H Clark still necessary (Yes/No): Line still necessary (Yes/No): VitalsTmp(F)EwedoXAKVCtI6EZE6 02/13 11:2398.9279361/67--98 21% 02/13 07:4998.4632773/67--100--- 02/13 03:3097.1448432/413531--- 02/12 23:0098.4864605/409140--- 02/12 19:5898.341931/848915--- 24 Hr Tmax: 98.7F (37.06c) at 02/13 07:49Vital Signs are the last 5 in the past 48 hours. DateWt(kg)Wt(lb)Ht(cm)Ht(in)Method 01/21 (initial) 59.09 130.00Estimated 47.32 58.00Stated I&ORecordInOutBal 02/323hr Tot 441 275 166 02/223hr Tot 2296 2150 146 Medications (32) Active Scheduled Meds (12): [...] LORazepam 0.5 mg PO BID 01/21/18 acetaminophen-hydrocodone ([place] 5/325 oral tablet) 1 tab PO Q6H [...] 1,000 mL) 1,000 mL 75 ml/hr ASSESSMENT & EXAM PLAN & TREATMENT DIAGNOSES & PROBLEMS Ready for Discharge (Yes/No)? TEACHING ATTESTATION Extracted from: Title: GI Consult Note Author: Diogenes Moreno MD Date: 01/22/18 Impression and Plan 1. Epigastric Pain, H/o GERD - Plan for EGD tomorrow - Consents ordered - On PPI R/O gastric outlet obstruction, PUD, neoplasm, GERD 2. Nausea/vomiting - On Zofran & Phenergan 3. Anemia, likely of chronic disease - Stable, continue to monitor 4. S/p colectomy with ileostomy placement - Continue to monitor 5. Acute and chronic kidney disease - Renal following GI ATTENDING ATTESTATION I have examined the patient with the PA/CORE EXTRUDER and confirmed the integral components of the history, physical examination, diagnosis and treatment plan. I agree with the note and management decisions as documented by the CORE EXTRUDER/PA, and amended as needed in the text by me. Diogenes Moreno M.D, FACG, FASGE. Extracted from: Title: General Admission H&P * [...]
--- OUTSIDE RECORDS SUMMARY | 2018-10-20 13:14 | XMS REPORT | Summary of Care ---
Author Author [facility] Organization [facility] Address Unknown Phone Unavailable Encounter LEONARD Stout([id number]) [id number] Date(s): 01/01/18 - 01/13/18 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) - Type 2 diabetes mellitus with diabetic chronic kidney disease (Final) - Hyperlipidemia, unspecified (Final) - Other disorders of phosphorus metabolism (Final) - Volume depletion, unspecified (Final) - Hyperkalemia (Final) - Unspecified osteoarthritis, unspecified site (Final) - Cyst of kidney, acquired (Final) - Acquired absence of other specified parts of digestive tract (Final) - Retention of urine, unspecified (Final) - Hypertensive chronic kidney disease with stage 1 through stage 4 chronic kidney disease, or unspecified chronic kidney disease (Final) - Discharge Disposition: Home Care with Home Health Attending Physician: Joshua Healy MD Admitting Physician: Joshua Healy MD Vital Signs 1 2 3 Most recent to oldest [Reference Range]: 147.32 cm (01/01/18 9:03 AM) 147.32 cm (01/01/18 8:24 AM) 147.32 cm (01/01/18 8:22 AM) Height 98.2 DegF (01/13/18 10:54 AM) 97.8 DegF (01/13/18 7:15 AM) 97.9 DegF (01/13/18 3:57 AM) Temperature Oral [96.4-99.1 DegF] 114/73 mmHg (01/13/18 10:54 AM) 131/78 mmHg (01/13/18 7:15 AM) 124/78 mmHg (01/13/18 3:57 AM) Blood Pressure [90-140/60-90 mmHg] 18 BRMIN (01/13/18 3:57 AM) 18 BRMIN (01/12/18 11:02 PM) 20 BRMIN (01/12/18 8:18 PM) Respiratory Rate [14-20 BRMIN] 91 bpm (01/13/18 10:54 AM) 91 bpm (01/13/18 7:15 AM) 87 bpm (01/13/18 3:57 AM) Peripheral Pulse Rate [60-100 bpm] 60.909 kg (01/01/18 9:03 AM) 60.909 kg (01/01/18 8:24 AM) 60.909 kg (01/01/18 8:22 AM) Weight 28.06 m2 (01/01/18 9:03 AM) 28.06 m2 (01/01/18 8:24 AM) 28.06 m2 (01/01/18 8:22 AM) Body Mass Index Problem List No data available for this section Allergies, Adverse Reactions, Alerts Substance Reaction Severity Status ibuprofen Active Motrin Active Medications acetaminophen 650 mg, PO, Q6H, PRN Pain 4-6/Temp > 100.4 F, 0 Refill(s) Start Date: 01/03/18 Status: Ordered Adult Parenteral Nutrition Custom - Central (TPN) 1,370 mL 1,370 mL, Rate: 55 ml/hr, Infuse over: 24.9 hr, Dosing Weight 60.909, kg, Route: IV, Total Volume: 1,370 mL, Start Date: 01/03/18 22:00:00 [employer] QU[employer] SPECIALIST, Duration: 24 hr, Stop date: 01/04/18 21:59:00 AIR QUALITY SPECIALIST, Replace Every: 24.9 hr Start Date: 01/03/18 Stop Date: 01/04/18 Status: Discontinued Adult Parenteral Nutrition Custom - Central (TPN) 1,370 mL 1,370 mL, Rate: 55 ml/hr, Infuse over: 24.9 hr, Dosing Weight 60.909, kg, Route: IV Central, Total Volume: 1,370 mL, Start Date: 01/02/18 22:00:00 [employer] QUALITY SPECIALIST, Duration: 24 hr, Stop date: 01/03/18 21:59:00 AIR QUALITY SPECIALIST, Replace Every: 24.9 hr Notes: Central line only Must use 0.22 micron filter Start Date: 01/02/18 Stop Date: 01/03/18 Status: Completed Adult Parenteral Nutrition Custom - Central (TPN) 1,850 mL 1,850 mL, Rate: 75 ml/hr, Infuse over: 24.7 hr, Dosing Weight 60.909, kg, Route: IV, Total Volume: 1,850 mL, Start Date: 01/05/18 22:00:00 AIR QUALITY SPECIALIST, Duration: 24 hr, Stop date: 01/06/18 21:59:00 AIR QUALITY SPECIALIST, Replace Every: 24.7 hr Notes: Central line only Must use 0.22 micron filter Start Date: 01/05/18 Stop Date: 01/06/18 Status: Completed Adult Parenteral Nutrition Custom - Central (TPN) 1,850 mL 1,850 mL, Rate: 75 ml/hr, Infuse over: 24.7 hr, Dosing Weight 60.909, kg, Route: IV, Total Volume: 1,850 mL, Start Date: 01/06/18 22:00:00 [employer] QUALITY SPECIALIST, Duration: 24 hr, Stop date: 01/07/18 21:59:00 AIR QUALITY SPECIALIST, Replace Every: 24 hr Notes: Central line only Must use 0.22 micron filter Start Date: 01/06/18 Stop Date: 01/07/18 Status: Completed Adult Parenteral Nutrition Custom - Central (TPN) 1,850 mL 1,850 mL, Rate: 75 ml/hr, Infuse over: 24.7 hr, Dosing Weight 60.909, kg, Route: IV, Total Volume: 1,850 mL, Start Date: 01/04/18 22:00:00 AIR QUALITY SPECIALIST, Duration: 24 hr, Stop date: 01/05/18 21:59:00 AIR QUALITY SPECIALIST, Replace Every: 24.7 hr Notes: Central line only Must use 0.22 micron filter Start Date: 01/04/18 Stop Date: 01/05/18 Status: Discontinued Adult Parenteral Nutrition Custom - Central (TPN) 1,850 mL 1,850 mL, Rate: 75 ml/hr, Infuse over: 24.7 hr, Dosing Weight 60.909, kg, Route: IV, Total Volume: 1,850 mL, Start Date: 01/07/18 22:00:00 AIR QUALITY SPECIALIST, Duration: 24 hr, Stop date: 01/08/18 21:59:00 AIR QUALITY SPECIALIST, Replace Every: 24.7 hr Start Date: 01/07/18 Stop Date: 01/08/18 Status: Completed albuterol-ipratropium 2.5-0.5 mg inhalation solution 3 mL, INHALATION, Q6H, PRN Wheezing, # 30 ea, 1 Refill(s) Start Date: 01/03/18 Status: Ordered Ambien 5 mg, 1 tab, Route: PO, Drug form: TAB, Bedtime, Dosing Weight 60.909, kg, PRN I nsomnia, Start date: 01/04/18 15:24:00 [employer] QU[employer] SPECIALIST, Duration: 30 day, Stop date: 8 15:23:00 AIR QUALITY SPECIALIST Notes: (Same As: Ambien) Start Date: 01/04/18 Stop Date: 01/13/18 Status: Discontinued amLODIPine 10 mg, 2 tab, Route: PO, Drug form: TAB, Daily, Dosing Weight 60.909, kg, Start date: 01/04/18 9:00:00 [employer] QU[employer] SPECIALIST, Duration: 30 day, Stop date: 02/02/18 9:00:00 AIR QUALITY SPECIALIST Notes: (Same as: Norvasc) Start Date: 01/04/18 Stop Date: 01/13/18 Status: Discontinued amLODIPine 10 mg oral tablet 10 mg=1 tab, PO, Daily, # 90 tab, 0 Refill(s) Start Date: 01/03/18 Status: Ordered Ativan 0.5 mg, 1 tab, Route: PO, Drug form: TAB, TID, Dosing Weight 60.909, kg, PRN Anx iety, Start date: 01/04/18 15:50:00 [employer] QU[employer] SPECIALIST, Duration: 30 day, Stop date: 02/03/18 1 5:49:00 AIR QUALITY SPECIALIST Notes: (Same as: Ativan) Start Date: 01/04/18 Stop Date: 01/13/18 Status: Discontinued carvedilol 6.25 mg, 2 tab, Route: PO, Drug form: TAB, BID, Dosing Weight 60.909, kg, Start date: 01/04/18 9:00:00 AIR QU[employer]ITY SPECIALIST, Duration: 30 day, Stop date: 02/02/18 17:00:00 AIR QUALITY SPECIALIST Notes: Give with food. (Same As: Coreg) Start Date: 01/04/18 Stop Date: 01/13/18 Status: Discontinued carvedilol 6.25 mg oral tablet 6.25 mg=1 tab, PO, BID, # 180 tab, 0 Refill(s) Start Date: 01/03/18 Stop Date: 01/21/18 Status: Discontinued cloNIDine 0.1 mg oral tablet 0.1 mg, 1 tab, Route: PO, Drug form: TAB, Q8H, Dosing Weight 60.909, kg, PRN Hyp ertension, Start date: 01/01/18 14:49:00 AIR QUALITY SPECIALIST, Duration: 30 day, Stop date: 01/31 14:48:00 AIR QUALITY SPECIALIST, SBP >160 Notes: (Same As: Catapres) Start Date: 01/01/18 Stop Date: 01/13/18 Status: Discontinued cloNIDine 0.1 mg/24 hr transdermal film, extended release 1 patch, TOP, qWeek, # 4 patch, 0 Refill(s) Start Date: 01/03/18 Stop Date: 01/13/18 Status: Discontinued Dextrose 50% Syringe 25 gm, 50 mL, Route: IVP, Drug Form: INJ, Dosing Weight 60.909, kg, PRN, PRN Blo od Glucose Results, Start date: 01/02/18 18:41:00 [employer] QU[employer]ITY SPECIALIST, Duration: 30 day, Stop da te: 02/01/18 18:40:00 AIR QUALITY SPECIALIST Start Date: 01/02/18 Stop Date: 01/13/18 Status: Discontinued Dextrose 50% Syringe 12.5 gm, 25 mL, Route: IVP, Drug Form: INJ, Dosing Weight 60.909, kg, PRN, PRN B lood Glucose Results, Start date: 01/02/18 18:41:00 [employer] QUAL[employer] SPECIALIST, Duration: 30 day, Stop date: 02/01/18 18:40:00 [employer] QUALITY SPECIALIST Start Date: 01/02/18 Stop Date: 01/13/18 Status: Discontinued Dextrose 50% Syringe 12.5 gm, 25 mL, Route: IVP, Drug Form: INJ, Dosing Weight 60.909, kg, PRN, PRN B lood Glucose Results, Start date: 01/01/18 14:47:00 AIR QUALITY SPECIALIST, Duration: 30 day, Stop date: 01/31/18 14:46:00 AIR QUALITY SPECIALIST Start Date: 01/01/18 Stop Date: 01/02/18 Status: Discontinued Dextrose 50% Syringe 25 gm, 50 mL, Route: IVP, Drug Form: INJ, Dosing Weight 60.909, kg, PRN, PRN Blo od Glucose Results, Start date: 01/01/18 14:47:00 AIR QUALITY SPECIALIST, Duration: 30 day, Stop da te: 01/31/18 14:46:00 AIR QUALITY SPECIALIST Start Date: 01/01/18 Stop Date: 01/02/18 Status: Discontinued diclofenac 1% topical kit 2 gm=, TOP, QID, 0 Refill(s) Start Date: 01/03/18 Stop Date: 03/05/18 Status: Discontinued Dilaudid 1 mg, 1 mL, Route: IV, Drug form: SOLN, Q6H, Dosing Weight 60.909, kg, PRN Pain Score 4-6, Start date: 01/01/18 8:31:00 [employer] QUALITY SPECIALIST, Stop date: 01/31/18 11:00:00 AIR QUALITY SPECIALIST Notes: (Same as: Dilaudid) Start Date: 01/01/18 Stop Date: 01/01/18 Status: Discontinued Dilaudid 1 mg, 1 mL, Route: IV, Drug form: SOLN, Q12H, Dosing Weight 60.909, kg, PRN Dres sing Change, Start date: 01/01/18 10:26:00 AIR QUALITY SPECIALIST, Stop date: 01/31/18 9:26:00 AIR QUALITY SPECIALIST Notes: (Same as: Dilaudid) Start Date: 01/01/18 Stop Date: 01/13/18 Status: Discontinued Dilaudid 1 mg/mL injectable solution 1 mg=1 ml, IM, Q4H, PRN Pain, 0 Refill(s) Start Date: 01/03/18 Stop Date: 01/13/18 Status: Discontinued gabapentin 300 mg oral capsule 300 mg=1 cap, PO, Daily, 0 Refill(s) Start Date: 01/03/18 Stop Date: 03/05/18 Status: Discontinued glucagon 1 mg, Route: IM, Drug form: PDR/INJ, PRN, Dosing Weight 60.909, kg, PRN Blood Gl ucose Results, Start date: 01/02/18 18:41:00 AIR QUALITY SPECIALIST, Duration: 30 day, Stop date: 04/04/17 18:40:00 AIR QUALITY SPECIALIST Start Date: 01/02/18 Stop Date: 01/13/18 Status: Discontinued glucagon 1 mg, Route: IM, Drug form: PDR/INJ, PRN, Dosing Weight 60.909, kg, PRN Blood Gl ucose Results, Start date: 01/01/18 14:47:00 AIR QUALITY SPECIALIST, Duration: 30 day, Stop date: 04/03/17 14:46:00 AIR QUALITY SPECIALIST Start Date: 01/01/18 Stop Date: 01/02/18 Status: Discontinued heparin 5,000 unit, 1 mL, Route: SUB-Q, Drug form: INJ, Q12H, Dosing Weight 60.909, kg, Start date: 01/01/18 21:00:00 AIR QUALITY SPECIALIST, Duration: 30 day, Stop date: 01/31/18 9:00:00 AIR QUALITY SPECIALIST Notes: porcine heparin Start Date: 01/01/18 Stop Date: 01/04/18 Status: Discontinued hydrALAZINE 10 mg, IV, Q4H, PRN Hypertension, 0 Refill(s) Start Date: 01/03/18 Stop Date: 03/05/18 Status: Discontinued hydromorphone 1 mg, 1 mL, Route: IVP, Drug form: SOLN, ONCE, Dosing Weight 60.909, kg, Priorit y: STAT, Start date: 01/10/18 13:14:00 AIR QUALITY SPECIALIST, Stop date: 01/10/18 13:14:00 AIR QUALITY SPECIALIST Notes: (Same as: Dilaudid) Start Date: 01/10/18 Stop Date: 01/10/18 Status: Completed insulin aspart SUB-Q, TID-Before Meals, 0 Refill(s) Start Date: 01/03/18 Status: Ordered insulin glargine 15 unit, 0.15 mL, Route: SUB-Q, Drug form: SOLN, Bedtime, Start date: 01/04/18 2 1:00:00 AIR QUALITY SPECIALIST, Duration: 30 day, Stop date: 02/02/18 21:00:00 AIR QUALITY SPECIALIST Notes: (Same as: Lantus)Do not hold insulin without contacting prescriberWASTE: F/P - Black; E - [facility] Trash [facility] "single patient use only" Start Date: 01/04/18 Stop Date: 01/03/18 Status: Canceled insulin lispro 15 unit, 0.15 mL, Route: SUB-Q, Drug form: SOLN, ONCE, Dosing Weight 60.909, kg, Start date: 01/04/18 22:20:00 AIR QUALITY SPECIALIST, Stop date: 01/04/18 22:20:00 AIR QUALITY SPECIALIST Notes: (Same as: Humalog ) Roll in palms of hands gently; Do not shake `vigorou sly. "Single Patient Use Only " WASTE: F/P - Black; E - [facility] [address] St able for 28 days at room temperature.Expires in days from Da te Start Date: 01/04/18 Stop Date: 01/04/18 Status: Completed insulin lispro 15 unit, 0.15 mL, Route: SUB-Q, Drug form: SOLN, Sliding Scale, Dosing Weight 60 .909, kg, PRN Blood Glucose Results, Start date: 01/02/18 18:41:00 AIR QUALITY SPECIALIST, Duration : 30 day, Stop date: 02/01/18 18:40:00 AIR QUALITY SPECIALIST Notes: (Same as: Humalog ) Roll in palms of hands gently; Do not shake `vigorou sly. "Single Patient Use Only " WASTE: F/P - Black; E - [facility] [address] St able for 28 days at room temperature.Expires in days from Da te Start Date: 01/02/18 Stop Date: 01/13/18 Status: Discontinued insulin lispro 12 unit, 0.12 mL, Route: SUB-Q, Drug form: SOLN, Sliding Scale, Dosing Weight 60 .909, kg, PRN Blood Glucose Results, Start date: 01/02/18 18:41:00 AIR QUALITY SPECIALIST, Duration : 30 day, Stop date: 02/01/18 18:40:00 AIR QUALITY SPECIALIST Notes: (Same as: Humalog ) Roll in palms of hands gently; Do not shake `vigorou sly. "Single Patient Use Only " WASTE: F/P - Black; E - [facility] [address] able for 28 days at room temperature.Expires in days from Da te Start Date: 01/02/18 Stop Date: 01/13/18 Status: Discontinued insulin lispro 9 unit, 0.09 mL, Route: SUB-Q, Drug form: SOLN, Sliding Scale, Dosing Weight 60. 909, kg, PRN Blood Glucose Results, Start date: 01/02/18 18:41:00 AIR QUALITY SPECIALIST, Duration: 30 day, Stop date: 02/01/18 18:40:00 AIR QUALITY SPECIALIST Notes: (Same as: Humalog ) Roll in palms of hands gently; Do not shake `vigorou sly. "Single Patient Use Only " WASTE: F/P - Black; E - [facility] [address] able for 28 days at room temperature.Expires in days from Da te Start Date: 01/02/18 Stop Date: 01/13/18 Status: Discontinued insulin lispro 3 unit, 0.03 mL, Route: SUB-Q, Drug form: SOLN, Sliding Scale, Dosing Weight 60. 909, kg, PRN Blood Glucose Results, Start date: 01/02/18 18:41:00 AIR QUALITY SPECIALIST, Duration: 30 day, Stop date: 02/01/18 18:40:00 AIR QUALITY SPECIALIST Notes: (Same as: Humalog ) Roll in palms of hands gently; Do not shake `vigorou sly. "Single Patient Use Only " WASTE: F/P - Black; E - [facility] [address] able for 28 days at room temperature.Expires in days from Da te Start Date: 01/02/18 Stop Date: 01/13/18 Status: Discontinued insulin lispro 6 unit, 0.06 mL, Route: SUB-Q, Drug form: SOLN, Sliding Scale, Dosing Weight 60. 909, kg, PRN Blood Glucose Results, Start date: 01/02/18 18:41:00 AIR QUALITY SPECIALIST, Duration: 30 day, Stop date: 02/01/18 18:40:00 AIR QUALITY SPECIALIST Notes: (Same as: Humalog ) Roll in palms of hands gently; Do not shake `vigorou sly. "Single Patient Use Only " WASTE: F/P - Black; E - [facility] [address] able for 28 days at room temperature.Expires in days from Da te Start Date: 01/02/18 Stop Date: 01/13/18 Status: Discontinued insulin lispro 5 unit, 0.05 mL, Route: SUB-Q, Drug form: SOLN, ONCE, Dosing Weight 60.909, kg, Start date: 01/02/18 4:18:00 AIR QUALITY SPECIALIST, Stop date: 01/02/18 4:18:00 AIR QUALITY SPECIALIST Notes: (Same as: Humalog ) Roll in palms of hands gently; Do not shake `vigorou sly. "Single Patient Use Only " WASTE: F/P - Black; E - [facility] [address] able for 28 days at room temperature.Expires in days from Da te Start Date: 01/02/18 Stop Date: 01/02/18 Status: Completed insulin lispro 4 unit, 0.04 mL, Route: SUB-Q, Drug form: SOLN, Bedtime, Dosing Weight 60.909, k g, PRN Blood Glucose Results, Start date: 01/01/18 14:47:00 AIR QUALITY SPECIALIST, Duration: 30 da y, Stop date: 01/31/18 14:46:00 AIR QUALITY SPECIALIST Notes: (Same as: Humalog ) Roll in palms of hands gently; Do not shake `vigorou sly. "Single Patient Use Only " WASTE: F/P - Black; E - [facility] [address] able for 28 days at room temperature.Expires in days from Da te Start Date: 01/01/18 Stop Date: 01/02/18 Status: Discontinued insulin lispro 3 unit, 0.03 mL, Route: SUB-Q, Drug form: SOLN, Bedtime, Dosing Weight 60.909, k g, PRN Blood Glucose Results, Start date: 01/01/18 14:47:00 AIR QUALITY SPECIALIST, Duration: 30 da y, Stop date: 01/31/18 14:46:00 AIR QUALITY SPECIALIST Notes: (Same as: Humalog ) Roll in palms of hands gently; Do not shake `vigorou sly. "Single Patient Use Only " WASTE: F/P - Black; E - [facility] [address] able for 28 days at room temperature.Expires in days from Da te Start Date: 01/01/18 Stop Date: 01/02/18 Status: Discontinued insulin lispro 2 unit, 0.02 mL, Route: SUB-Q, Drug form: SOLN, Bedtime, Dosing Weight 60.909, k g, PRN Blood Glucose Results, Start date: 01/01/18 14:47:00 AIR QUALITY SPECIALIST, Duration: 30 da y, Stop date: 01/31/18 14:46:00 AIR QUALITY SPECIALIST Notes: (Same as: Humalog ) Roll in palms of hands gently; Do not shake `vigorou sly. "Single Patient Use Only " WASTE: F/P - Black; E - [facility] [address] able for 28 days at room temperature.Expires in days from Da te Start Date: 01/01/18 Stop Date: 01/02/18 Status: Discontinued insulin lispro 1 unit, 0.01 mL, Route: SUB-Q, Drug form: SOLN, Bedtime, Dosing Weight 60.909, k g, PRN Blood Glucose Results, Start date: 01/01/18 14:47:00 AIR QUALITY SPECIALIST, Duration: 30 da y, Stop date: 01/31/18 14:46:00 AIR QUALITY SPECIALIST Notes: (Same as: Humalog ) Roll in palms of hands gently; Do not shake `vigorou sly. "Single Patient Use Only " WASTE: F/P - Black; E - [facility] [address] able for 28 days at room temperature.Expires in days from Da te Start Date: 01/01/18 Stop Date: 01/02/18 Status: Discontinued insulin lispro 8 unit, 0.08 mL, Route: SUB-Q, Drug form: SOLN, TID-Before Meals, Dosing Weight 60.909, kg, PRN Blood Glucose Results, Start date: 01/01/18 14:47:00 AIR QUALITY SPECIALIST, Durati on: 30 day, Stop date: 01/31/18 14:46:00 AIR QUALITY SPECIALIST Notes: (Same as: Humalog ) Roll in palms of hands gently; Do not shake `vigorou sly. "Single Patient Use Only " WASTE: F/P - Black; E - [facility] [address] able for 28 days at room temperature.Expires in days from Da te Start Date: 01/01/18 Stop Date: 01/02/18 Status: Discontinued insulin lispro 10 unit, 0.1 mL, Route: SUB-Q, Drug form: SOLN, TID-Before Meals, Dosing Weight 60.909, kg, PRN Blood Glucose Results, Start date: 01/01/18 14:47:00 AIR QUALITY SPECIALIST, Durati on: 30 day, Stop date: 01/31/18 14:46:00 AIR QUALITY SPECIALIST Notes: (Same as: Humalog ) Roll in palms of hands gently; Do not shake `vigorou sly. "Single Patient Use Only " WASTE: F/P - Black; E - [facility] [address] able for 28 days at room temperature.Expires in days from Da te Start Date: 01/01/18 Stop Date: 01/02/18 Status: Discontinued insulin lispro 6 unit, 0.06 mL, Route: SUB-Q, Drug form: SOLN, TID-Before Meals, Dosing Weight 60.909, kg, PRN Blood Glucose Results, Start date: 01/01/18 14:47:00 AIR QUALITY SPECIALIST, Durati on: 30 day, Stop date: 01/31/18 14:46:00 AIR QUALITY SPECIALIST Notes: (Same as: Humalog ) Roll in palms of hands gently; Do not shake `vigorou sly. "Single Patient Use Only " WASTE: F/P - Black; E - [facility] [address] able for 28 days at room temperature.Expires in days from Da te Start Date: 01/01/18 Stop Date: 01/02/18 Status: Discontinued insulin lispro 4 unit, 0.04 mL, Route: SUB-Q, Drug form: SOLN, TID-Before Meals, Dosing Weight 60.909, kg, PRN Blood Glucose Results, Start date: 01/01/18 14:47:00 AIR QUALITY SPECIALIST, Durati on: 30 day, Stop date: 01/31/18 14:46:00 AIR QUALITY SPECIALIST Notes: (Same as: Humalog ) Roll in palms of hands gently; Do not shake `vigorou sly. "Single Patient Use Only " WASTE: F/P - Black; E - [facility] [address] able for 28 days at room temperature.Expires in days from Da te Start Date: 01/01/18 Stop Date: 01/02/18 Status: Discontinued insulin lispro 2 unit, 0.02 mL, Route: SUB-Q, Drug form: SOLN, TID-Before Meals, Dosing Weight 60.909, kg, PRN Blood Glucose Results, Start date: 01/01/18 14:47:00 AIR QUALITY SPECIALIST, Durati on: 30 day, Stop date: 01/31/18 14:46:00 AIR QUALITY SPECIALIST Notes: (Same as: Humalog ) Roll in palms of hands gently; Do not shake `vigorou sly. "Single Patient Use Only " WASTE: F/P - Black; E - [facility] [address] able for 28 days at room temperature.Expires in days from Da te Start Date: 01/01/18 Stop Date: 01/02/18 Status: Discontinued Lasix 40 mg oral tablet 40 mg=1 tab, PO, Daily, # 90 tab, 0 Refill(s) Start Date: 01/03/18 Status: Ordered Levemir FlexPen 15 unit, Route: SUB-Q, Bedtime, Dosing Weight 60.909, kg, Start date: 01/04/18 2 1:00:00 AIR QUALITY SPECIALIST, Duration: 30 day, Stop date: 02/02/18 21:00:00 AIR QUALITY SPECIALIST Start Date: 01/04/18 Stop Date: 01/03/18 Status: Deleted lidocaine 4 %, IV, Daily, 0 Refill(s) Start Date: 01/03/18 Stop Date: 01/13/18 Status: Discontinued lidocaine topical patch (5% film) TOP, Daily, 0 Refill(s) Start Date: 01/03/18 Stop Date: 03/05/18 Status: Discontinued LORazepam 0.25 mg, 0.5 tab, Route: PO, Drug form: TAB, BID, Dosing Weight 60.909, kg, PRN Anxiety, Start date: 01/03/18 21:39:00 AIR QUALITY SPECIALIST, Duration: 30 day, Stop date: 8 21:38:00 AIR QUALITY SPECIALIST Notes: (Same as: Ativan) Start Date: 01/03/18 Stop Date: 01/04/18 Status: Discontinued LORazepam 0.5 mg oral tablet 0.25 mg=0.5 tab, PO, BID, PRN Anxiety, # 15 tab, 0 Refill(s) Start Date: 01/03/18 Stop Date: 01/13/18 Status: Discontinued LORazepam 0.5 mg oral tablet 0.5 mg=1 tab, PO, BID, PRN Anxiety, # 20 tab, 0 Refill(s) Start Date: 01/13/18 Status: Ordered Lovenox 30 mg, 0.3 mL, Route: SUB-Q, Drug form: INJ, [id number], Dosing Weight 60.909, kg, For CrCl <30mL/min, Start date: 01/04/18 22:00:00 AIR QUALITY SPECIALIST, Duration: 30 day, Stop date: 02/02/18 22:00:00 AIR QUALITY SPECIALIST Notes: (Same as: Lovenox) Start Date: 01/04/18 Stop Date: 01/13/18 Status: Discontinued Lovenox 40 mg/0.4 mL subcutaneous solution 40 mg, SUB-Q, Daily, # 7 ea, 0 Refill(s) Start Date: 01/03/18 Stop Date: 01/13/18 Status: Discontinued melatonin 3 mg, 1 tab, Route: PO, Drug form: TAB, Bedtime, Dosing Weight 60.909, kg, PRN S leep, Start date: 01/04/18 15:50:00 AIR QUALITY SPECIALIST, Duration: 30 day, Stop date: 02/03/18 1 5:49:00 AIR QUALITY SPECIALIST Notes: (Same as: Melatonin) Start Date: 01/04/18 Stop Date: 01/13/18 Status: Discontinued metoclopramide 5 mg, IV, 0 Refill(s) Start Date: 01/03/18 Stop Date: 01/13/18 Status: Discontinued metoprolol tartrate 25 mg oral tablet 25 mg=1 tab, PO, BID, # 60 tab, 0 Refill(s) Start Date: 01/03/18 Stop Date: 01/21/18 Status: Discontinued [place] 10/325 oral tablet 1 tab, Route: PO, Drug Form: TAB, Dosing Weight 60.909, kg, Q6H, PRN Pain Score 4-6, Start date: 01/01/18 10:26:00 AIR QUALITY SPECIALIST, Duration: 30 day, Stop date: 01/31/18 10 :25:00 AIR QUALITY SPECIALIST Notes: Do not exceed 4gm/day of acetaminophen. (Same as: [place] 325/10) Start Date: 01/01/18 Stop Date: 01/13/18 Status: Discontinued [place] 10/325 oral tablet 1 tab, PO, Q4H, PRN for pain, # 24 tab, 0 Refill(s) Start Date: 01/03/18 Stop Date: 01/07/18 Status: Ordered NS 500 mL 500 mL, Rate: 1,000 ml/hr, Infuse over: 0.5 hr, Route: IV, Dosing Weight 60.909 kg, Total Volume: 500, Start date: 01/01/18 12:45:00 AIR QUALITY SPECIALIST, Duration: 1 doses or t imes, Stop date: 01/01/18 13:14:00 AIR QUALITY SPECIALIST, Bolus Dose, 1.6, m2 Start Date: 01/01/18 Stop Date: 01/01/18 Status: Completed octreotide 50 microgram, 0.5 mL, Route: SUB-Q, Drug form: INJ, TID, Dosing Weight 60.909, k g, Start date: 01/04/18 9:00:00 AIR QUALITY SPECIALIST, Duration: 30 day, Stop date: 02/02/18 17:00 :00 AIR QUALITY SPECIALIST Notes: (Same As: SandoSTATIN). Refrigerate. MEDICATION WASTE Product S ize: 100 microgram Product Wasted: ___ microgram Start Date: 01/04/18 Stop Date: 01/13/18 Status: Discontinued octreotide 50 mcg/mL injectable solution 50 microgram, SUB-Q, TID, # 1 ml, 0 Refill(s) Start Date: 01/03/18 Stop Date: 01/13/18 Status: Discontinued pantoprazole 40 mg, Route: IVP, Drug form: INJ, Q12H, Dosing Weight 60.909, kg, Start date: 03/06/17 9:00:00 AIR QUALITY SPECIALIST, Duration: 30 day, Stop date: 02/02/18 21:00:00 AIR QUALITY SPECIALIST Notes: For IV push reconstitute with 10 ml 0.9% sodium chloride and push over 2 minutes. (Same as: Protonix) Start Date: 01/04/18 Stop Date: 01/13/18 Status: Discontinued pantoprazole 40 mg intravenous injection 40 mg, IV, Q12H, 0 Refill(s) Start Date: 01/03/18 Stop Date: 01/13/18 Status: Discontinued Protonix 40 mg oral enteric coated tablet 40 mg=1 tab, PO, Daily, # 30 tab, 0 Refill(s), Pharmacy: [facility]/pharmacy #[id number] Start Date: 01/13/18 Status: Ordered sertraline 100 mg, 1 tab, Route: PO, Drug form: TAB, Daily, Dosing Weight 60.909, kg, Start date: 01/04/18 9:00:00 [employer], Duration: 30 day, Stop date: 02/02/18 9:00:00 [employer]IST Notes: (Same as: Zoloft) Start Date: 01/04/18 Stop Date: 01/13/18 Status: Discontinued sertraline 100 mg oral tablet 100 mg=1 tab, PO, Daily, # 30 tab, 0 Refill(s) Start Date: 01/03/18 Status: Ordered sodium bicarbonate 8.4% additive 75 mEq + D5W 1/2NS 1,000 mL 1,000 mL, Rate: 125 ml/hr, Infuse over: 8.6 hr, Route: IV, Dosing Weight 60.909 kg, Total Volume: 1,075, Start date: 01/01/18 12:45:00 [employer] QUAL[employer] SPECIALIST, Duration: 30 day, St op date: 01/31/18 12:44:00 [employer]IST, 1.6, m2 Notes: (sodium bicarb 8.4% (1 mEq/ml) 50 ml VL) Start Date: 01/01/18 Stop Date: 01/02/18 Status: Discontinued Toprol-XL 25 mg oral tablet, extended release 25 mg, 1 tab, Route: PO, Drug form: ERTAB, Daily, Start date: 01/04/18 9:00:[address], Duration: 30 day, Stop date: 02/02/18 9:00:00 [employer]IST Start Date: 01/04/18 Stop Date: 01/03/18 Status: Canceled Tylenol 650 mg, 2 tab, Route: PO, Drug form: TAB, Q6H, Dosing Weight 60.909, kg, PRN Belia n 1-3/Temp > 100.4 F, Start date: 01/03/18 14:56:00 [employer]IST, Duration: 30 day, Stop date: 02/02/18 14:55:00 [employer]IST Notes: Do not exceed 4 gm/day. (Same as: Tylenol) Start Date: 01/03/18 Stop Date: 01/13/18 Status: Discontinued ziprasidone 5 mg, IM, Q6H, 0 Refill(s) Start Date: 01/03/18 Stop Date: 02/13/18 Status: Discontinued Zofran 4 mg, 2 mL, Route: IVP, Drug form: INJ, Q8H, Dosing Weight 60.909, kg, PRN as ne eded for nausea/vomiting, Priority: STAT, Start date: 01/01/18 14:49:00 [employer] SPECIALIST, Dur ation: 30 day, Stop date: 01/31/18 14:48:00 [employer] QU[employer]IST Notes: (Same as: Zofran) MEDICATION WASTE Product Size: 4 mgProduct Was paul: ___ mg Start Date: 01/01/18 Stop Date: 01/13/18 Status: Discontinued Zofran 2 mg/mL injectable solution 4 mg=2 ml, IV, Q6H, PRN Nausea & Vomiting, # 1 ea, 0 Refill(s) Start Date: 01/03/18 Stop Date: 01/13/18 Status: Discontinued Zofran ODT 4 mg oral tablet, disintegrating 4 mg=1 tab, PO, Q6H, PRN Nausea & Vomiting, Dissolve tab under tongue, # 30 tab, 0 Refill(s), Pharmacy: [id number] Start Date: 01/13/18 Status: Ordered Results 1 2 3 Most recent to oldest [Reference Range]: 4.4 K/CMM (01/08/18 3:46 AM) 6.0 K/CMM (01/07/18 7:12 AM) 6.9 K/CMM (01/02/18 4:15 AM) Neutrophils # [1.5-8.1 K/CMM] 2.3 K/CMM (01/08/18 3:46 AM) 2.5 K/CMM (01/07/18 7:12 AM) 2.2 K/CMM (01/02/18 4:15 AM) Lymphocytes # [1.0-5.5 K/CMM] 0.5 K/CMM (01/08/18 3:46 AM) 0.8 K/CMM (01/07/18 7:12 AM) 0.6 K/CMM (01/02/18 4:15 AM) Monocytes # [0.0-0.8 K/CMM] 0.2 K/CMM (01/08/18 3:46 AM) 0.2 K/CMM (01/07/18 7:12 AM) 0.1 K/CMM (01/02/18 4:15 AM) Eosinophils # [0.0-0.5 K/CMM] 0.1 K/CMM (01/07/18 7:12 AM) 0.1 K/CMM (01/02/18 4:15 AM) Basophils # [0.0-0.2 K/CMM] 11 /LPF *HI* (01/02/18 6:44 AM) UA Trans Epi [<=0 /LPF] 25 mL/min/1.73m2 1 *NA* (01/10/18 5:37 AM) 38 mL/min/1.73m2 2 *NA* (01/09/18 6:56 AM) 39 mL/min/1.73m2 3 *NA* (01/08/18 3:46 AM) eGFR 0.5 *LOW* (01/02/18 4:15 AM) 0.5 *LOW* (01/01/18 9:00 AM) A/G Ratio [0.7-1.6] 2.4 g/dL *LOW* (01/02/18 4:15 AM) 2.7 g/dL *LOW* (01/01/18 9:00 AM) Albumin Lvl [3.5-5.0 g/dL] 99 unit/L (01/02/18 4:15 AM) 118 unit/L (01/01/18 9:00 AM) Alk Phos [39-136 unit/L] 12 unit/L (01/02/18 4:15 AM) 16 unit/L (01/01/18 9:00 AM) ALT [0-65 unit/L] 14.3 mEq/L (01/10/18 5:37 AM) 14.1 mEq/L (01/09/18 6:56 AM) 13.6 mEq/L (01/08/18 3:46 AM) AGAP [10.0-20.0 mEq/L] 11 unit/L (01/02/18 4:15 AM) 17 unit/L (01/01/18 9:00 AM) AST [0-37 unit/L] 12 (01/02/18 4:15 AM) 12 (01/01/18 9:00 AM) B/C Ratio [6-25] 0.6 % (01/08/18 3:46 AM) 0.8 % (01/07/18 7:12 AM) 0.8 % (01/02/18 4:15 AM) Basophils [0.0-1.0 %] 51 mg/dL *HI* (01/10/18 5:37 AM) 47 mg/dL *HI* (01/09/18 6:56 AM) 57 mg/dL *HI* (01/08/18 3:46 AM) BUN [7-22 mg/dL] 9.0 mg/dL (01/10/18 5:37 AM) 8.4 mg/dL *LOW* (01/09/18 6:56 AM) 8.1 mg/dL *LOW* (01/08/18 3:46 AM) Calcium Lvl [8.5-10.5 mg/dL] 99 mEq/L (01/10/18 5:37 AM) 100 mEq/L (01/09/18 6:56 AM) 96 mEq/L (01/08/18 3:46 AM) Chloride Lvl [95-109 mEq/L] 25 mEq/L (01/10/18 5:37 AM) 26 mEq/L (01/09/18 6:56 AM) 28 mEq/L (01/08/18 3:46 AM) CO2 [24-32 mEq/L] 1.99 mg/dL *HI* (01/10/18 5:37 AM) 1.41 mg/dL *HI* (01/09/18 6:56 AM) 1.38 mg/dL (01/08/18 3:46 AM) Creatinine Lvl [0.50-1.40 mg/dL] 3.2 % (01/08/18 3:46 AM) 2.3 % (01/07/18 7:12 AM) 1.2 % (01/02/18 4:15 AM) Eosinophils [0.0-4.0 %] 4.4 g/dL *HI* (01/02/18 4:15 AM) 5.2 g/dL *HI* (01/01/18 9:00 AM) Globulin [2.7-4.2 g/dL] 126 mg/dL *HI* (01/10/18 5:37 AM) 191 mg/dL *HI* (01/09/18 6:56 AM) 159 mg/dL *HI* (01/08/18 3:46 AM) Glucose Lvl [70-99 mg/dL] 26.8 % *LOW* (01/10/18 5:37 AM) 24.0 % *LOW* (01/08/18 3:46 AM) 24.6 % *LOW* (01/07/18 7:12 AM) Hct [36.0-48.0 %] 8.7 g/dL *LOW* (01/10/18 5:37 AM) 8.0 g/dL *LOW* (01/08/18 3:46 AM) 8.3 g/dL *LOW* (01/07/18 7:12 AM) Hgb [12.0-16.0 g/dL] 4.3 mEq/L (01/10/18 5:37 AM) 4.1 mEq/L (01/09/18 6:56 AM) 3.6 mEq/L (01/08/18 3:46 AM) Potassium Lvl [3.5-5.1 mEq/L] 30.9 % (01/08/18 3:46 AM) 26.3 % (01/07/18 7:12 AM) 22.4 % (01/02/18 4:15 AM) Lymphocytes [20.0-40.0 %] 29.1 pg (01/10/18 5:37 AM) 29.6 pg (01/08/18 3:46 AM) 30.0 pg (01/07/18 7:12 AM) MCH [27.0-31.0 pg] 32.5 g/dL (01/10/18 5:37 AM) 33.2 g/dL (01/08/18 3:46 AM) 33.8 g/dL (01/07/18 7:12 AM) MCHC [32.0-36.0 g/dL] 89.7 fL (01/10/18 5:37 AM) 89.0 fL (01/08/18 3:46 AM) 88.8 fL (01/07/18 7:12 AM) MCV [80.0-98.0 fL] 1.9 mg/dL (01/08/18 3:46 AM) 2.2 mg/dL (01/07/18 7:12 AM) 2.0 mg/dL (01/06/18 3:41 AM) Magnesium Lvl [1.8-2.4 mg/dL] 6.9 % (01/08/18 3:46 AM) 8.3 % (01/07/18 7:12 AM) 6.2 % (01/02/18 4:15 AM) Monocytes [2.0-12.0 %] 6.8 fL *LOW* (01/10/18 5:37 AM) 7.4 fL (01/08/18 3:46 AM) 6.7 fL *LOW* (01/07/18 7:12 AM) MPV [7.4-10.4 fL] 134 mEq/L *LOW* (01/10/18 5:37 AM) 136 mEq/L (01/09/18 6:56 AM) 134 mEq/L *LOW* (01/08/18 3:46 AM) Sodium Lvl [135-145 mEq/L] 4.0 mg/dL (01/08/18 3:46 AM) 5.6 mg/dL *HI* (01/07/18 7:12 AM) 3.9 mg/dL (01/06/18 3:41 AM) Phosphorus [2.5-4.5 mg/dL] 345 K/CMM (01/10/18 5:37 AM) 301 K/CMM (01/08/18 3:46 AM) 285 K/CMM (01/07/18 7:12 AM) Platelet [133-450 K/CMM] 58.4 % (01/08/18 3:46 AM) 62.3 % (01/07/18 7:12 AM) 69.4 % (01/02/18 4:15 AM) Segs [45.0-75.0 %] 13.9 mg/dL *LOW* (01/02/18 4:15 AM) 15.3 mg/dL *LOW* (01/01/18 9:00 AM) Prealbumin [18.0-45.0 mg/dL] 6.8 g/dL (01/02/18 4:15 AM) 7.9 g/dL (01/01/18 9:00 AM) Total Protein [6.4-8.4 g/dL] 2.99 M/CMM *LOW* (01/10/18 5:37 AM) 2.70 M/CMM *LOW* (01/08/18 3:46 AM) 2.77 M/CMM *LOW* (01/07/18 7:12 AM) RBC [4.20-5.40 M/CMM] 17.9 % *HI* (01/10/18 5:37 AM) 18.0 % *HI* (01/08/18 3:46 AM) 17.9 % *HI* (01/07/18 7:12 AM) RDW [11.5-14.5 %] 0.3 mg/dL (01/02/18 4:15 AM) 0.2 mg/dL (01/01/18 9:00 AM) Bili Total [0.2-1.3 mg/dL] 408 mg/dL *HI* (01/06/18 3:41 AM) 446 mg/dL *HI* (01/02/18 4:15 AM) Trig [<=149 mg/dL] Occasional /HPF *NA* (01/02/18 6:44 AM) UA Bacteria [None Seen /HPF] Negative *NA* (01/02/18 6:44 AM) UA Bili [Negative] Small *ABN* (01/02/18 6:44 AM) UA Blood [Negative] Yellow *NA* (01/02/18 6:44 AM) UA Color [Yellow] 156.00 mg/dL *NA* (01/02/18 6:44 AM) U Creatinine Negative *NA* (01/02/18 6:44 AM) UA Glucose [Negative] Negative *NA* (01/02/18 6:44 AM) UA Ketones [Negative] Large *ABN* (01/02/18 6:44 AM) UA Leuk Est [Negative] Few /LPF *NA* (01/02/18 6:44 AM) UA Mucus [None Seen /LPF] Negative (01/02/18 6:44 AM) UA Nitrite [Negative] 5.0 (01/02/18 6:44 AM) UA pH [5.0-8.0] >=300 mg/dL *ABN* (01/02/18 6:44 AM) UA Protein [Negative mg/dL] 2 /HPF (01/02/18 6:44 AM) UA RBC [0-2 /HPF] 16 mEq/L *NA* (01/02/18 6:44 AM) U Sodium 1.014 (01/02/18 6:44 AM) UA Spec Grav [<=1.030] Occasional /LPF *NA* (01/02/18 6:44 AM) UA Sq Epi [Few /LPF] Marked *ABN* (01/02/18 6:44 AM) UA Turbidity [Clear] <=1.0 mg/dL *NA* (01/02/18 6:44 AM) UA Urobilinogen [0.1-1.0 mg/dL] >182 /HPF *HI* (01/02/18 6:44 AM) UA WBC [0-5 /HPF] 8.4 K/CMM (01/10/18 5:37 AM) 7.6 K/CMM (01/08/18 3:46 AM) 9.6 K/CMM (01/07/18 7:12 AM) WBC [3.7-10.4 K/CMM] 1Result Comment: The eGFR is calculated using [...] be mul tiplied by the estimated BMI. Microbiology Reports TEST: Culture: Urine STATUS: Auth (Verified) BODY SITE: SOURCE: Urine, Clean Catch COLLECTED DATE/TIME: 01/03/18 1:00 AM FINAL REPORT Specimen contains 3 or more potential pathogens; recommend correlation with urinalysis; if catheterized specimen recommend removal and recollection. If clinical situation warrants please call the laboratory for further testing. [place] [facility] [phone]. Immunizations No data available for this section [...] Discharge #2 greater than 35 minutes Extracted from: Title: Clinical Document Author: Dayan Rios Date: 01/13/18 [...] moderate to severe pain. Will continue PO Moul[place] 10/325mg every 6 hours as needed for mild to moderate pain. Discussed proper medication usage with the patient today. We left a prescription on her chart for Moul[place] 10/325mg, #20, CTRL [id number] for upon discharge. We will continue to monitor and make adjustments as needed. Please call with any questions or concerns. Attending: Joshua Healy MDPhone: Service: Internal Medicine Code status: None Specified=FULL CODE Reason for Admission: ABDOMINAL FISTULA LEAKING Working DRG: Isolation: Contact Consulting Physicians: Prema Price MDOffice: Service: Nephrology Keith Price MDOffice: Service: Medicine, Nephrology Celeste Samuels MDOffice: Service: Medicine Jr Louis MDOffice: Service: Medicine, Neurology Larry Ragland MDOffice: Service: Urology Giovana Moon I MDOffice: Service: Anesthesiology David Ram MDOffice: Service: General Surgery Vasquez Randhawa DOOffice: Service: Medicine Scheduled Meds (6): 01/04/18 amLODIPine 10 mg PO Daily 01/04/18 carvedilol 6.25 mg PO BID 01/04/18 enoxaparin (Lovenox) 30 mg SUB-Q [id number] 01/04/18 octreotide 50 microgram SUB-Q TID 01/04/18 pantoprazole 40 mg IVP Q12H 01/04/18 sertraline 100 mg PO Daily PRN Meds (16): 01/02/18 Dextrose 50% in Water IV (Dextrose 50% Syringe) 12.5 gm IVP PRN 01/02/18 Dextrose 50% in Water IV (Dextrose 50% Syringe) 25 gm IVP PRN 01/04/18 LORazepam (Ativan) 0.5 mg PO TID 01/01/18 acetaminophen-hydrocodone ([place] 10/325 oral tablet) 1 tab PO Q6H [...] 01/04/18 zolpidem (Ambien) 5 mg PO Bedtime VitalsTmp(F)[id number] 01/13 10:5498.899762/73--96--- 01/13 07:1597.781313/78--97--- 01/13 03:5797.772821/867480--- 01/12 23:0298.652970/951019--- 01/12 20:1898.011818/783052--- 24 Hr Tmax: 98.7F (37.06c) at 01/12 23:02Vital Signs are the last 5 in the past 48 hours. Lines, Tubes, and Drains: 01/06/2018 19:27 Central Lines: Internal jugular, left Non-tunneled (most common) 01/06/2018 07:00 Surgical Drains: Other: midline fistula patient relations manager Medial 01/01/2018 07:50 GI Ostomy: Ileostomy Established llq I&ORecordInOutBal 01/324hr Tot 1 0 1 01/224hr Tot 294 490 -606 DateWt(kg)Wt(lb)Ht(cm)Ht(in)Method 01/01 (initial) 60.64 133.40Measured 47.32 58.00Stated None Specified=FULL CODE Allergies: ibuprofen, Motrin Addendum I agree with the assessment and plan per ESTIVEN Ponce. by Daniel Woodson MD on 01/14/2018 16:50 Extracted from: Title: Clinical Document Author: Celeste [...] underwent a colectomy with ileostomy placement at [facility] in September as per her she had [...] by the wound care nurse and wound patient relations manager was placed today and she has [...] Ibuprofen. Motrin. Physical examination: Vital signs T98.4 DE 86 BP 03/10/1967 RR 16 HEENT ROSANGELA Neck supple RS Equal AE b/l no added sounds CVS S1S2 normal no murmur P/A soft patient has a wound patient relations manager in the midline having profuse feculent drainage She has a ileostomy could not see the wound as patient has a wound patient relations manager MALT LOADER AAox3 NO FND Skin intact Ext no [...] can when we reevaluate without a wound patient relations manager and as per the patient and [...]
[2018-10-20] MEDS ORDERED: SODIUM CHLORIDE 0.9% 1000ML 1,000 ML IV STA ×2 (13:58)
[2018-10-20] MEDS ORDERED: PANTOPRAZOLE 40 MG 10ML VIAL IV ONE (14:00)
[2018-10-20] MEDS ORDERED: MORPHINE SULFATE 2 MG/ML SYR 1ML IV PRN (14:15)
[2018-10-20] MEDS ORDERED: ONDANSETRON HCL INJ 2MG/ML 2ML 2 MG/ML VIAL IV ONE (14:30)
[2018-10-20] MEDS ORDERED: MORPHINE SULFATE 2 MG/ML SYR 1ML IV ONE (14:30)
--- NOTE | 2018-10-20 14:31 | NUR ---
STRAIGHT CATH INSERTED FOR UA VIA ASEPTIC TECHNIQUE PER MD ORDERS; URINE OUTPUT APPROX 20 CC; URINE COLLECTED AND SENT TO LAB
[2018-10-20 14:51] LABS: BILIRUBIN,URINE SMALL (NEGATIVE); CLARITY,URINE CLOUDY (CLEAR); COLOR,URINE YELLOW (YELLOW); KETONES,URINE NEGATIVE (NEGATIVE); LEUKOCYTE ESTERASE ,URINE LARGE (NEGATIVE); NITRITE,URINE NEGATIVE (NEGATIVE); URINE UROBILINOGEN 0.2 mg/dL (0.2 - 1)
[2018-10-20 14:52] LABS: PROTEIN,URINE DIPSTICK 2+ (NEGATIVE)
--- OUTSIDE RECORDS SUMMARY | 2018-10-20 15:01 | XMS REPORT | Clinical Summary ---
Author Author [facility] Address Unknown Phone Unavailable Care Team Providers Care Blasting Coal Miner Name Role Phone Cody Cheng MD PCP [...] Advance Directives For more information, please contact: [phone] Patient Medical Editor Explanation Type Date Recorded Advance Directives, Living Will and Medical Power of Mud Boss
--- OUTSIDE RECORDS SUMMARY | 2018-10-20 15:01 | XMS REPORT | Clinical Summary ---
Author Author [facility] Address Unknown Phone Unavailable Care Team Providers Care Senior Internet Sales Consultant Name Role Phone Cody Cheng PCP Jarrell Gaytan MD Unavailable Unavailable Arnulfo Pina MD 3 Allergies Not on File Medications End Date Status Medication Sig Dispensed Refills Start Date Active metoprolol (TOPROL-XL) Take 100 mg 0 100 MG 24 hr by mouth tabletIndications: ESRD daily. (end stage renal disease) ([facility]) Active pantoprazole (PROTONIX) Take 20 mg by 0 20 MG tabletIndications: mouth daily. ESRD (end stage renal disease) ([facility]) Active folic acid (FOLVITE) 1 MG Take 1 mg by 0 tabletIndications: ESRD mouth daily. (end stage renal disease) ([facility]) Active ondansetron (ZOFRAN) 8 MG Take by mouth 0 tabletIndications: ESRD every 8 (end stage renal disease) (eight) hours ([facility]) as needed for Nausea. Active sodium bicarbonate 650 MG Take 1 tablet 0 tabletIndications: ESRD by mouth 4 (end stage renal disease) (four) times ([facility]) daily. Active sertraline (ZOLOFT) 100 Take 100 mg 0 MG tabletIndications: by mouth ESRD (end stage renal daily. disease) ([facility]) Active ranitidine (ZANTAC) 150 Take 150 mg 0 MG capsuleIndications: by mouth 2 ESRD (end stage renal (two) times disease) ([facility]) daily. Active sevelamer (RENVELA) 800 Take 800 mg 0 mg tabletIndications: by mouth 3 ESRD (end stage renal (three) times disease) ([facility]) daily with meals. Active metoclopramide HCl Take 10 mg by 0 (REGLAN) 10 MG mouth 4 tabletIndications: ESRD (four) times (end stage renal disease) daily as ([facility]) needed for Nausea. Active amLODIPine (NORVASC) 10 Take 10 mg by 0 MG tabletIndications: mouth daily. ESRD (end stage renal disease) ([facility]) Active SUMAtriptan (IMITREX) 100 Take 100 mg 0 MG tabletIndications: by mouth once ESRD (end stage renal as needed for disease) ([facility]) Headaches. Active zolpidem (AMBIEN) 10 mg Take 10 mg by 0 tabletIndications: ESRD mouth every (end stage renal disease) night as ([facility]) needed for Insomnia. Active promethazine (PHENERGAN) Take 25 mg by 0 25 MG tabletIndications: mouth every 6 ESRD (end stage renal (six) hours disease) ([facility]) as needed for Nausea. Active insulin aspart (NOVOLOG) Inject 12 0 100 unit/mL Units InPnIndications: ESRD subcutaneousl (end stage renal disease) y 3 (three) ([facility]) times daily with meals. Active insulin detemir (LEVEMIR) Inject 30 0 100 unit/mL (3 mL) InPn Units injectionIndications: subcutaneousl ESRD (end stage renal y nightly. disease) ([facility]) Active vit B cmplex Take 1 tablet 0 2-LF-P-biot-Zn ox by mouth 1-60-300-12.5 daily. sf-fm-zgb-mg TabIndications: ESRD (end stage renal disease) ([facility]) Active cholecalciferol, vitamin Take 1,000 0 D3, 1,000 unit Units by capsuleIndications: ESRD mouth daily. (end stage renal disease) ([facility]) Active LORazepam (ATIVAN) 0.5 MG Take 0.5 mg 0 tabletIndications: ESRD by mouth (end stage renal disease) every 6 (six) ([facility]) hours as needed for Anxiety. Active Problems [...]
[2018-10-20 15:03] LABS: BACTERIA,URINE MANY /HPF; EPITHELIAL CELLS,URINE RARE /LPF; RBC,URINE 0-5 /HPF (0-5)
--- OUTSIDE RECORDS SUMMARY | 2018-10-20 15:03 | XMS REPORT | Continuity of Care Document ---
Author Author [employer] Organization [employer] Address Unknown Phone Unavailable Care Team Providers Care Cork Grinder Name Role Phone [employer] Unavailable Unavailable Problems Problem Status Onset Date Classification Date Reported Comments Source Persistent postprocedural fistula, initial encounter 03/22/2018 09/22/2018 [facility] ABD PAIN Active 02/25/2018 [facility] ABDOMINAL PAIN, ACUTE, ACUTE LOWER UTI, Active 02/25/2018 [facility] Other complications of enterostomy 01/21/2018 08/02/2018 [facility] N/V Active 01/21/2018 [facility] MAGI Active 01/21/2018 [facility] ABDOMINAL FISTULA LEAKING Active 12/31/2017 [facility] R10.10 - "UPPER ABDOMINAL PAIN, UNSPECIF Active 03[facility]17[facility] [place] Unspecified abdominal pain 08/02/2018 [facility] Hypo-osmolality and hyponatremia 09/02/2018 [facility] Acidosis 09/22/2018 [facility] Fistula of intestine 09/22/2018 [facility] Acute kidney failure, unspecified 09/22/2018 [facility] Disruption of external operation wound, not elsewhere classified, initial encounter 08/02/2018 [facility] Chronic kidney disease, stage 4 08/02/2018 [facility] Iron deficiency anemia secondary to blood loss 08/02/2018 [facility] Type 2 diabetes mellitus with diabetic chronic kidney disease 09/22/2018 [facility] Hyperlipidemia, unspecified 09/22/2018 [facility] Other disorders of phosphorus metabolism 08/02/2018 [facility] Volume depletion, unspecified 08/02/2018 [facility] Hyperkalemia 09/02/2018 [facility] Unspecified osteoarthritis, unspecified site 09/22/2018 [facility] Cyst of kidney, acquired 09/22/2018 [facility] Acquired absence of other specified parts of digestive tract 09/22/2018 [facility] Retention of urine, unspecified 08/02/2018 [facility] Hypertensive chronic kidney disease with stage 1 through stage 4 chronic kidney disease, or unspecified chronic kidney disease 09/22/2018 [facility] Toxic encephalopathy 09/02/2018 [facility] Ulcer of esophagus without bleeding 09/02/2018 [facility] Chronic kidney disease, stage 3 09/02/2018 [facility] Diaphragmatic hernia without obstruction or gangrene 09/02/2018 [facility] Gastritis, unspecified, without bleeding 09/02/2018 [facility] Anemia in other chronic diseases classified elsewhere 09/02/2018 [facility] FCI use of insulin 09/02/2018 [facility] Ileostomy status 09/02/2018 [facility] Personal history of nicotine dependence 09/22/2018 [facility] Dehydration 09/22/2018 [facility] Hypomagnesemia 09/22/2018 [facility] Adverse effect of unspecified nonopioid analgesic, antipyretic and antirheumatic, initial encounter 09/02/2018 [facility] Gastro-esophageal reflux disease with esophagitis 09/02/2018 [facility] Hypokalemia 09/22/2018 [facility] Other malaise 09/22/2018 [facility] Nausea with vomiting, unspecified 09/02/2018 [facility] Type 2 diabetes mellitus with hypoglycemia without coma 09/02/2018 [facility] Fever, unspecified 09/02/2018 [facility] Pain in right forearm 09/02/2018 [facility] Unspecified right bundle-branch block 09/02/2018 [facility] Epigastric pain 09/02/2018 [facility] Surgical operation with formation of external stoma as the cause of abnormal reaction of the patient, or of later complication, without mention of misadventure at the time of the procedure 09/02/2018 [facility] Urinary tract infection, site not specified 09/22/2018 [facility] Chronic kidney disease, stage 3 (moderate) 09/22/2018 [facility] Tremor, unspecified 09/22/2018 [facility] Hypocalcemia 09/22/2018 [facility] Pressure ulcer of sacral region, unstageable 09/22/2018 [facility] Anemia in chronic kidney disease 09/22/2018 [facility] Other specified disorders of the skin and subcutaneous tissue 09/22/2018 [facility] Colostomy status 09/22/2018 [facility] Bed confinement status 09/22/2018 [facility] UNSPECIFIED ABDOMINAL PAIN Active [facility] FISTULA OF STOMACH AND DUODENUM Active [facility] ACUTE KIDNEY FAILURE, UNSPECIFIED Active [facility] URINARY TRACT INFECTION, SITE NOT SPECIF Active [facility] Medications Medication Details Route Status Patient Instructions Ordering Provider Order Date Source Octreotide 0.1 MG/ML Injectable Solution [Sandostatin] 100 microgram, SUB-Q, BID, X 30 day, # 60 vial, 0 Refill(s), other No Longer Active 03/05/2018 [facility] loperamide 2 mg oral capsule 2 mg=1 cap, PO, Q4H, PRN loose stools, # 30 cap, 0 Refill(s), other Active 03/05/2018 [facility] potassium chloride 20 mEq oral tablet, extended release 40 mEq, 2 tab, Route: PO, Drug form: ERTAB, ONCE, Dosing Weight 53.4, kg, Start date: 03/05/18 17:41:00 SHIP WIRER, Stop date: 03/05/18 17:41:00 CSTNotes: (Same as: K- Dur 20) "Do Not Crush" Give with food and full glass of water For patients unable to swallow tablet, dissolve in one half glass of water. Allow about 2 minutes for the tablets to disintegrate. Stir before giving to prepare slurry an d administer. Please exclude Patients with feeding tube less than 14 Q[address] (Dobhoff, J-tube etc) and pediatric and patients. Inactive 03/05/2018 [facility] Ondansetron 4 MG Disintegrating Tablet [Zofran] 4 mg=1 tab, PO, TID, Dissolve tab under tongue, # 20 tab, 0 Refill(s) Active 03/05/2018 [facility] enoxaparin 30 mg/0.3 mL subcutaneous solution 30 mg=0.3 mL, SUB-Q, [id number], 0 Refill(s) Active 03/05/2018 [facility] Acetaminophen 300 MG / Codeine Phosphate 30 MG Oral Tablet [Tylenol with Codeine #3] 1 tab, PO, Q6H, PRN Pain, # 25 tab, 0 Refill(s) Active 03/05/2018 [facility] Phenergan 25 mg oral tablet 25 mg=1 tab, PO, Q6H, PRN Nausea, # 30 tab, 0 Refill(s), other Active 03/05/2018 [facility] metoprolol extended release 25 mg, 1 tab, Route: PO, Drug form: ERTAB, Daily, Priority: NOW, Start date: 03/02/18 23:10:00 SHIP WIRER, Duration: 30 day, Stop date: 04/01/18 9:00:00 CSTNotes: (Same as: Toprol XL) Do Not Crush No Longer Active 03/03/2018 [facility] Promethazine 25 mg, 1 mL, Route: IVPB, Q6H, Dosing Weight 53.4, kg, PRN Nausea & Vomiting, Start date: 03/02/18 7:41:00 SHIP WIRER, Duration: 30 day, Stop date: 04/01/18 7:40:00 CSTNotes: Do not give IV push. (Same as: Phenergan) No Longer Active 03/02/2018 [facility] Magnesium Sulfate 2 gm, 50 mL, Route: IVPB, Drug form: INJ, ONCE, Dosing Weight 53.4, kg, Start date: 02/28/18 17:34:00 SHIP WIRER, Stop date: 02/28/18 17:34:00 CSTNotes: WASTE: F/P - Sink; E - Municipal Trash Bin Inactive 02/28/2018 [facility] Tums 1,000 mg, 2 tab, Route: CHEW, Drug form: CHEWTAB, TID-Before Meals, Dosing Weight 53.4, kg, Start date: 02/28/18 16:30:00 SHIP WIRER, Duration: 30 day, Stop date: 03/30/18 11:30:00 CSTNotes: (Same As: Tums) Calcium Carbonate 500 lb=059 mg elemental calcium Dose= mg calcium carbonate ( mg elemental calcium) No Longer Active 02/28/2018 [facility] Calcium Gluconate 1,000 mg, 10 mL, Route: IVPB, ONCE, Dosing Weight 53.4, kg, Start date: 02/28/18 13:54:00 SHIP WIRER, Stop date: 02/28/18 13:54:00 CSTNotes: WASTE: F/P - Sink; E - [employer] Trash Bin Inactive 02/28/2018 [facility] Magnesium Sulfate 2 gm, 50 mL, Route: IVPB, Drug form: INJ, ONCE, Dosing Weight 53.4, kg, Start date: 02/28/18 13:54:00 SHIP WIRER, Stop date: 02/28/18 13:54:00 CSTNotes: WASTE: F/P - Sink; E - [employer] Trash Bin Inactive 02/28/2018 [facility] Magnesium Sulfate 2 gm, 50 mL, Route: IV, Drug form: INJ, ONCE, Dosing Weight 53.4, kg, Start date: 02/28/18 10:56:00 SHIP WIRER, Stop date: 02/28/18 10:56:00 CSTNotes: WASTE: F/P - Sink; E - [employer] Trash Bin Inactive 02/28/2018 [facility] Dilaudid 1 mg, 1 mL, Route: IVP, Drug form: SOLN, ONCE, Dosing Weight 53.4, kg, Priority: STAT, Start date: 02/28/18 10:37:00 SHIP WIRER, Stop date: 02/28/18 10:37:00 CSTNotes: (Same as: Dilaudid) Inactive 02/28/2018 [facility] Insulin Lispro 2 unit, 0.02 mL, Route: SUB-Q, Drug form: SOLN, Bedtime, Dosing Weight 53.4, kg, PRN Blood Glucose Results, Start date: 02/27/18 22:09:00 SHIP WIRER, Duration: 30 day, Stop date: 03/29/18 22:08:00 CSTNotes: (Same as: Humalog ) Roll in palms of hands gently; Do not shake `vigorously. "Single Patient Use Only " WASTE: F/P - Black; E - [employer] Trash Bin Stable for 28 days at room temperature. Expires in days from Date No Longer Active 02/28/2018 [facility] Dextrose 50% Syringe 25 gm, 50 mL, Route: IVP, Drug Form: INJ, Dosing Weight 53.4, kg, PRN, PRN Blood Glucose Results, Start date: 02/27/18 22:09:00 SHIP WIRER, Duration: 30 day, Stop date: 03/29/18 22:08:00 SHIP WIRER No Longer Active 02/28/2018 [facility] Glucagon 1 mg, Route: IM, Drug form: PDR/INJ, PRN, Dosing Weight 53.4, kg, PRN Blood Glucose Results, Start date: 02/27/18 22:09:00 SHIP WIRER, Duration: 30 day, Stop date: 03/29/18 22:08:00 SHIP WIRER No Longer Active 02/28/2018 [facility] Tums 1,000 mg, 2 tab, Route: CHEW, Drug form: CHEWTAB, TID-Meals, Dosing Weight 53.4, kg, Start date: 02/27/18 17:00:00 SHIP WIRER, Duration: 30 day, Stop date: 03/29/18 12:00:00 CSTNotes: (Same As: Tums) Calcium Carbonate 500 mm=547 mg elemental calcium Dose= mg calcium carbonate ( mg elemental calcium) No Longer Active 02/27/2018 [facility] Calcium Gluconate 2,000 mg, 20 mL, Route: IVPB, ONCE, Dosing Weight 53.4, kg, Start date: 02/27/18 10:59:00 SHIP WIRER, Stop date: 02/27/18 10:59:00 CSTNotes: WASTE: F/P - Sink; E - [employer] Trash Bin Inactive 02/27/2018 [facility] Potassium Chloride 1.33 MEQ/ML Oral Solution 20 mEq, 1 tab, Route: PO, Drug form: ERTAB, ONCE, Dosing Weight 53.4, kg, Start date: 02/27/18 10:59:00 SHIP WIRER, Stop date: 02/27/18 10:59:00 SHIP WIRER Inactive 02/27/2018 [facility] Zinc Oxide 0.2 MG/MG Topical Ointment Route: TOP, BID, Drug form: OINT, Start date: 02/27/18 9:00:00 SHIP WIRER, Duration: 30 day, Stop date: 03/28/18 17:00:00 CSTNotes: Same as: Desitin No Longer Active 02/27/2018 [facility] Timothy packet 1 pkt, Route: PO, Drug Form: PWDR, Dosing Weight 53.4, kg, BID-Before Meals, Start date: 02/27/18 7:30:00 SHIP WIRER, Duration: 28 day, Stop date: 03/26/18 16:30:00 CSTNotes: (Same as: Timothy Screven) No Longer Active 02/27/2018 [facility] cefepime 1 gm, Route: IVPB, [id number], Dosing Weight 62.727, kg, (CrCl >/=50 ml/min), Start date: 02/26/18 16:00:00 SHIP WIRER, Duration: 7 day, Stop date: 03/04/18 16:00:00 SHIP WIRER, ABX Indication: Urinary Tract InfectionNotes: (Same As: Maxipime) MEDICATION WASTE Product Size: 1000 mg Product Wasted: ___ mg No Longer Active 02/26/2018 [facility] Promethazine 25 mg, PO, Q6H, 0 Refill(s) No Longer Active 02/26/2018 [facility] Famotidine 40 mg, PO, Bedtime, # 60 tab, 0 Refill(s) Active 02/26/2018 [facility] pramipexole 0.125 mg oral tablet 0.125 mg=1 tab, PO, Daily, 0 Refill(s) Active 02/26/2018 [facility] sucralfate 1 g oral tablet 1 gm=1 tab, PO, QID-Before Meals, 0 Refill(s) Active 02/26/2018 [facility] Sodium Bicarbonate 10 grain, PO, BID, 0 Refill(s) Active 02/26/2018 [facility] atorvastatin 40 mg oral tablet 40 mg=1 tab, PO, Bedtime, # 90 tab, 1 Refill(s) Active 02/26/2018 [facility] Lovenox 30 mg, 0.3 mL, Route: SUB-Q, Drug form: INJ, [id number], Dosing Weight 62.727, kg, Start date: 02/25/18 20:00:00 SHIP WIRER, Duration: 30 day, Stop date: 03/26/18 20:00:00 CSTNotes: (Same as: Lovenox) No Longer Active 02/26/2018 [facility] Calcium Gluconate 3,000 mg, 30 mL, Route: IVPB, ONCE, Dosing Weight 62.727, kg, Start date: 02/25/18 18:58:00 SHIP WIRER, Stop date: 02/25/18 18:58:00 CSTNotes: WASTE: F/P - Sink; E - [employer] Trash Bin Inactive 02/26/2018 [facility] Hydromorphone 0.5 mg, Route: IVP, ONCE, Dosing Weight 62.727, kg, Priority: STAT, Start date: 02/25/18 18:45:00 SHIP WIRER, Stop date: 02/25/18 18:45:00 SHIP WIRER Inactive 02/26/2018 [facility] Hydralazine 10 mg, 0.5 mL, Route: IVP, Drug form: INJ, Q4H, Dosing Weight 62.727, kg, PRN Hypertension, Priority: Routine, Start date: 02/25/18 18:09:00 SHIP WIRER, Duration: 30 day, Stop date: 03/27/18 18:08:00 CSTNotes: (Same as: Apresoline) Push over 5 minutes No Longer Active 02/26/2018 [facility] Seroquel 25 mg, 1 tab, Route: PO, Drug form: TAB, BID, Dosing Weight 62.727, kg, PRN Agitation, Start date: 02/25/18 18:09:00 SHIP WIRER, Duration: 30 day, Stop date: 03/27/18 18:08:00 CSTNotes: (Same as: SEROquel) No Longer Active 02/26/2018 [facility] Acetaminophen 325 MG / Hydrocodone Bitartrate 5 MG Oral Tablet [[place] 5/325] 1 tab, Route: PO, Drug Form: TAB, Dosing Weight 62.727, kg, Q6H, PRN Pain Score 1-3, Start date: 02/25/18 18:09:00 SHIP WIRER, Duration: 30 day, Stop date: 03/27/18 18:08:00 CSTNotes: (Same as: [place] 325/5) Do not exceed 4gm/day of acetaminophen. No Longer Active 02/26/2018 [facility] Morphine 2 mg, 0.5 mL, Route: IVP, Drug form: SOLN, Q4H, Dosing Weight 62.727, kg, PRN Pain Score 7-10, Start date: 02/25/18 18:09:00 SHIP WIRER, Duration: 30 day, Stop date: 03/27/18 18:08:00 CSTNotes: (Same as:MORPhine Sulfate) No Longer Active 02/26/2018 [facility] magnesium citrate 58.2 MG/ML Oral Solution 300 ml, Route: PO, Drug Form: LIQ, Dosing Weight 62.727, kg, ONCE, PRN Constipation, Start date: 02/25/18 18:09:00 CSTNotes: (Same as: Citrate of Magnesia) Concentration: 1.745 gm / 30 mL No Longer Active 02/26/2018 [facility] Nicotine 21 mg, 1 patch, Route: TOP, Drug form: ERFILM, Daily, Dosing Weight 62.727, kg, PRN as needed for smoking cessation, Start date: 02/25/18 18:09:00 SHIP WIRER, Duration: 30 day, Stop date: 03/27/18 18:08:00 SHIP WIRER Notes: (Same as: Habitrol) "Remove old patch before application of new patch" WASTE: F/P - P Waste Black; E - P Waste Black No Longer Active 02/26/2018 [facility] Glucagon 1 mg, Route: IM, Drug form: PDR/INJ, PRN, Dosing Weight 62.727, kg, PRN Blood Glucose Results, Start date: 02/25/18 18:09:00 SHIP WIRER, Duration: 30 day, Stop date: 03/27/18 18:08:00 SHIP WIRER No Longer Active 02/26/2018 [facility] Dextrose 50% Syringe 12.5 gm, 25 mL, Route: IVP, Drug Form: INJ, Dosing Weight 62.727, kg, PRN, PRN Blood Glucose Results, Start date: 02/25/18 18:09:00 SHIP WIRER, Duration: 30 day, Stop date: 03/27/18 18:08:00 SHIP WIRER No Longer Active 02/26/2018 [facility] Acetaminophen 650 mg, 2 tab, Route: PO, Drug form: TAB, Q6H, Dosing Weight 62.727, kg, PRN For Temp > 100.4 F, Start date: 02/25/18 18:09:00 SHIP WIRER, Duration: 30 day, Stop date: 03/27/18 18:08:00 CSTNotes: Do not exceed 4 gm/day. (Same as: Tylenol) No Longer Active 02/26/2018 [facility] Trazodone 50 mg, 1 tab, Route: PO, Drug form: TAB, Bedtime, Dosing Weight 62.727, kg, PRN Insomnia, Start date: 02/25/18 18:09:00 SHIP WIRER, Duration: 30 day, Stop date: 03/27/18 18:08:00 CSTNotes: (Same As: Desyrel) No Longer Active 02/26/2018 [facility] Melatonin 3 mg, 1 tab, Route: PO, Drug form: TAB, Bedtime, Dosing Weight 62.727, kg, PRN Insomnia, Start date: 02/25/18 18:09:00 SHIP WIRER, Duration: 30 day, Stop date: 03/27/18 18:08:00 CSTNotes: (Same as: Melatonin) No Longer Active 02/26/2018 [facility] Diphenhydramine 25 mg, 1 tab, Route: PO, Drug form: TAB, Q6H, Dosing Weight 62.727, kg, PRN as needed for allergy symptoms, Start date: 02/25/18 18:09:00 SHIP WIRER, Duration: 30 day, Stop date: 03/27/18 18:08:00 SHIP WIRER No Longer Active 02/26/2018 [facility] POLYETHYLENE GLYCOL 3350 17 gm, 1 pkt, Route: PO, Drug form: PWDR, Daily, Dosing Weight 62.727, kg, PRN Constipation, Start date: 02/25/18 18:09:00 SHIP WIRER, Duration: 30 day, Stop date: 03/27/18 18:08:00 CSTNotes: Dissolve in 8 oz of water or juice. (Same as: Miralax) No Longer Active 02/26/2018 [facility] Ondansetron 4 mg, 2 mL, Route: IVP, Drug form: INJ, Q6H, Dosing Weight 62.727, kg, PRN Nausea & Vomiting, Start date: 02/25/18 18:09:00 SHIP WIRER, Duration: 30 day, Stop date: 03/27/18 18:08:00 CSTNotes: (Same as: Zofran) MEDICATION WASTE Product Size: 4 mg Product Wasted: ___ mg No Longer Active 02/26/2018 [facility] Bisacodyl 10 mg, 1 supp, Route: OH, Drug form: SUPP, Daily, Dosing Weight 62.727, kg, PRN Constipation, Start date: 02/25/18 18:09:00 SHIP WIRER, Duration: 30 day, Stop date: 03/27/18 18:08:00 CSTNotes: (Same As: Dulcolax, Bisco-Lax) No Longer Active 02/26/2018 [facility] NS 1,000 mL 1,000 mL, Rate: 125 ml/hr, Infuse over: 8 hr, Route: IV, Dosing Weight 53.4 kg, Total Volume: 1,000, Start date: 02/25/18 16:38:00 SHIP WIRER, Duration: 30 day, Stop date: 03/27/18 16:37:00 SHIP WIRER, 1.38, m2 No Longer Active 02/25/2018 [facility] Sodium Chloride 0.9% (Bolus) IV 1,000 mL, 1000 ml/hr, Infuse Over: 1 hr, Route: IV, 1,000, Drug form: INJ, ONCE, Priority: STAT, Dosing Weight 62.727 kg, Start date: 02/25/18 15:24:00 SHIP WIRER, Stop date: 02/25/18 15:24:00 SHIP WIRER Inactive 02/25/2018 [facility] cefepime 1 gm, Route: IVPB, ONCE, Dosing Weight 62.727, kg, Priority: STAT, Start date: 02/25/18 15:20:00 SHIP WIRER, Stop date: 02/25/18 15:20:00 SHIP WIRER, ABX Indication: Urinary Tract Infection Inactive 02/25/2018 [facility] Morphine 2 mg, 1 mL, Route: IVP, Drug form: SOLN, ONCE, Dosing Weight 62.727, kg, Priority: STAT, Start date: 02/25/18 13:24:00 SHIP WIRER, Stop date: 02/25/18 13:24:00 SHIP WIRER Inactive 02/25/2018 [facility] Ondansetron 4 mg, 2 mL, Route: IVP, Drug form: INJ, ONCE, Dosing Weight 62.727, kg, Priority: STAT, Start date: 02/25/18 13:24:00 SHIP WIRER, Stop date: 02/25/18 13:24:00 CSTNotes: (Same as: Tomas) MEDICATION WASTE Product Size: 4 mg Product Wasted: ___ mg Inactive 02/25/2018 [facility] Sodium Chloride 0.9% (Bolus) IV 1,000 mL, 1000 ml/hr, Infuse Over: 1 hr, Route: IV, 1,000, Drug form: INJ, ONCE, Priority: STAT, Dosing Weight 62.727 kg, Start date: 02/25/18 13:24:00 SHIP WIRER, Stop date: 02/25/18 13:24:00 SHIP WIRER Inactive 02/25/2018 [facility] Saline Flush 0.9% 10 mL, Route: IVP, Drug Form: INJ, Dosing Weight 62.727, kg, PRN, PRN Line Flush, Start date: 02/25/18 13:24:00 SHIP WIRER, Duration: 30 day, Stop date: 03/27/18 13:23:00 CSTNotes: Same as: BD Posiflush Sterile No Longer Active 02/25/2018 [facility] Urocit-K 10 mEq, 1 tab, Route: PO, Drug form: ERTAB, TID- Meals, Dosing Weight 59.091, kg, Start date: 02/13/18 17:00:00 SHIP WIRER, Duration: 30 day, Stop date: 03/15/18 12:00:00 SHIP WIRER Inactive 02/13/2018 [facility] Calcium Gluconate 2,000 mg, 20 mL, Route: IVPB, ONCE, Dosing Weight 59.091, kg, Start date: 02/13/18 11:36:00 SHIP WIRER, Stop date: 02/13/18 11:36:00 CSTNotes: WASTE: F/P - Sink; E - [employer] Trash Bin Inactive 02/13/2018 [facility] Prednisone 60 mg, 3 tab, Route: PO, Drug form: TAB, Daily, Dosing Weight 59.091, kg, Priority: NOW, Start date: 02/12/18 13:23:00 SHIP WIRER, Duration: 5 day, Stop date: 02/17/18 9:00:00 CSTNotes: Take with food. No Longer Active 02/12/2018 [facility] Sodium Bicarbonate 325 MG Oral Tablet 650 mg, 1 tab, Route: PO, Drug form: TAB, BID, Dosing Weight 59.091, kg, Start date: 02/12/18 9:00:00 SHIP WIRER, Duration: 30 day, Stop date: 03/13/18 17:00:00 CSTNotes: "Dissolve tablet in a glass of water prior to oral administration. STOMACH WARNING: To avoid serious injury, do not take until tablet is completely dissolved. It is very important not to take this product when overly full from food or drink." No Longer Active 02/12/2018 [facility] sodium bicarbonate 8.4% additive 75 mEq + D5W 1/2NS 1,000 mL 1,000 mL, Rate: 75 ml/hr, Infuse over: 14.3 hr, Route: IV, Dosing Weight 59.091 kg, Total Volume: 1,075, Start date: 02/12/18 7:59:00 SHIP WIRER, Duration: 30 day, Stop date: 03/14/18 7:58:00 SHIP WIRER, 1.58, [id number]: (sodium bicarb 8.4% (1 mEq/ml) 50 ml VL) No Longer Active 02/12/2018 [facility] Merrem 500 mg, Route: IVPB, [id number], Dosing Weight 59.091, kg, CrCL >=50ml/min, Extended infusion, infuse over 3 hours, Start date: 02/07/18 16:00:00 SHIP WIRER, Duration: 10 day, Stop date: 02/17/18 10:00:00 SHIP WIRER, ABX Indication: BacteremiaNotes: Same as Merrem MEDICATION WASTE Product Size: 500 mg Product Wasted: ___ mg No Longer Active 02/07/2018 [facility] meropenem + sterile water 10 mL 500 mg, Route: IV, ONCE, Start date: 02/07/18 8:06:00 SHIP WIRER, Stop date: 02/07/18 8:06:00 SHIP WIRER, ABX Indication: BacteremiaNotes: Same as Merrem MEDICATION WASTE Product Size: 500 mg Product Wasted: ___ mg Inactive 02/07/2018 [facility] Imitrex 6 mg, 0.5 mL, Route: SUB-Q, Drug form: INJ, ONCE, Dosing Weight 59.091, kg, PRN Headache 6-10, Start date: 02/04/18 14:38:00 CSTNotes: For SUBCUTANEOUS use only Inactive 02/04/2018 [facility] D5NS 1,000 mL 1,000 mL, Rate: 75 ml/hr, Infuse over: 13.3 hr, Route: IV, Dosing Weight 59.091 kg, Total Volume: 1,000, Start date: 02/04/18 7:09:00 SHIP WIRER, Duration: 30 day, Stop date: 03/06/18 7:08:00 SHIP WIRER, 1.58, m2 No Longer Active 02/04/2018 [facility] sodium bicarbonate 8.4% additive 75 mEq + 1/2 NS 1,000 mL 1,000 mL, Rate: 70 ml/hr, Infuse over: 15.4 hr, Route: IV, Dosing Weight 59.091 kg, Total Volume: 1,075, Start date: 01/31/18 10:34:00 SHIP WIRER, Duration: 30 day, Stop date: 03/02/18 10:33:00 SHIP WIRER, 1.58, [id number]: (sodium bicarb 8.4% (1 mEq/ml) 50 ml VL) No Longer Active 01/31/2018 [facility] Adult Parenteral Nutrition Custom - Central (TPN) 1,850 mL 1,850 mL, Rate: 75 ml/hr, Infuse over: 24.7 hr, Dosing Weight 59.091, kg, Route: IV, Total Volume: 1,850 mL, Start Date: 01/26/18 22:00:00 SHIP WIRER, Duration: 24 hr, Stop date: 01/27/18 21:59:00 SHIP WIRER, Replace Every: 24 hrNotes: Central line only Must use 1.2 micron filter AND Lipids should not be administered to patients who are allergic to soy, fish, egg or peanuts. No Longer Active 01/27/2018 [facility] Magnesium Sulfate 2 gm, 50 mL, Route: IVPB, Drug form: INJ, ONCE, Dosing Weight 59.091, kg, Start date: 01/26/18 13:19:00 SHIP WIRER, Stop date: 01/26/18 13:19:00 CSTNotes: WASTE: F/P - Sink; E - [employer] Trash Bin Inactive 01/26/2018 [facility] Insulin Lispro 2 unit, 0.02 mL, Route: SUB-Q, Drug form: SOLN, Bedtime, Dosing Weight 59.091, kg, PRN Blood Glucose Results, Start date: 01/26/18 12:49:00 SHIP WIRER, Duration: 30 day, Stop date: 02/25/18 12:48:00 CSTNotes: (Same as: Humalog ) Roll in palms of hands gently; Do not shake `vigorously. "Single Patient Use Only " WASTE: F/P - Black; E - [employer] Trash Bin Stable for 28 days at room temperature. Expires in days from Date No Longer Active 01/26/2018 [facility] Dextrose 50% Syringe 25 mL, Route: IVP, Dosing Weight 59.091, kg, PRN, PRN Blood Glucose Results, Start date: 01/26/18 12:49:00 SHIP WIRER, Duration: 30 day, Stop date: 02/25/18 12:48:00 SHIP WIRER Inactive 01/26/2018 [facility] Glucagon 1 mg, Route: IM, PRN, Dosing Weight 59.091, kg, PRN Blood Glucose Results, Start date: 01/26/18 12:49:00 SHIP WIRER, Duration: 30 day, Stop date: 02/25/18 12:48:00 SHIP WIRER Inactive 01/26/2018 [facility] Adult Parenteral Nutrition Custom - Central (TPN) 1,850 mL 1,850 mL, Rate: 75 ml/hr, Infuse over: 24.7 hr, Dosing Weight 59.091, kg, Route: IV, Total Volume: 1,850 mL, Start Date: 01/25/18 22:00:00 SHIP WIRER, Duration: 24 hr, Stop date: 01/26/18 21:59:00 SHIP WIRER, Replace Every: 24 hrNotes: Central line only Must use 1.2 micron filter AND Lipids should not be administered to patients who are allergic to soy, fish, egg or peanuts. No Longer Active 01/26/2018 [facility] Levemir FlexPen 15 unit, Route: SUB-Q, Bedtime, Dosing Weight 59.091, kg, Start date: 01/25/18 21:00:00 SHIP WIRER, Duration: 30 day, Stop date: 02/23/18 21:00:00 SHIP WIRER Inactive 01/26/2018 [facility] insulin glargine 15 unit, 0.15 mL, Route: SUB-Q, Drug form: SOLN, Bedtime, Start date: 01/25/18 21:00:00 SHIP WIRER, Duration: 30 day, Stop date: 02/23/18 21:00:00 CSTNotes: (Same as: Lantus) Do not hold insulin without contac ting prescriber WASTE: F/P - Black; E - [facility] Tr[facility] "single patient use only" No Longer Active 01/26/2018 [facility] Adult Parenteral Nutrition Custom - Central (TPN) 1,850 mL 1,850 mL, Rate: 75 ml/hr, Infuse over: 24.7 hr, Dosing Weight 59.091, kg, Route: IV, Total Volume: 1,850 mL, Start Date: 01/24/18 22:00:00 SHIP WIRER, Duration: 24 hr, Stop date: 01/25/18 21:59:00 SHIP WIRER, Replace Every: 24 hr No Longer Active 01/25/2018 [facility] K-Dur 20 40 mEq, 2 tab, Route: PO, Drug form: ERTAB, BID, Dosing Weight 59.091, kg, Priority: Routine, Start date: 01/24/18 18:30:00 SHIP WIRER, Duration: 1 doses or times, Stop date: [...] Patients with feeding tube less than 14 Q[place] (Dobhoff, J-tube etc) and pediatric and patients. Inactive 01/25/2018 [facility] Protonix 40 mg, 1 tab, Route: PO, Drug form: ECTAB, BID, Dosing Weight 59.091, kg, Start date: 01/24/18 17:00:00 SHIP WIRER, Duration: 30 day, Stop date: 02/23/18 9:00:00 CSTNotes: Tablet should not be chewed or crushed. (Same as: Protonix) No Longer Active 01/24/2018 [facility] Potassium Chloride 40 mEq, 30 mL, Route: PO, Drug form: LIQ, BID, Dosing Weight 59.091, kg, Priority: Routine, Start date: 01/24/18 9:00:00 SHIP WIRER, Duration: 2 doses or times, Stop date: 01/24/18 17:00:00 CSTNotes: (Same as: Potassium Chloride) Inactive 01/24/2018 [facility] Adult Parenteral Nutrition Custom - Central (TPN) 1,850 mL 1,850 mL, Rate: 75 ml/hr, Infuse over: 24.7 hr, Dosing Weight 59.091, kg, Route: IV, Total Volume: 1,850 mL, Start Date: 01/23/18 22:00:00 SHIP WIRER, Duration: 24 hr, Stop date: 01/24/18 21:59:00 SHIP WIRER, Replace Every: 24 hr No Longer Active 01/24/2018 [facility] Insulin Lispro 3 unit, 0.03 mL, Route: SUB-Q, Drug form: SOLN, Sliding Scale, Dosing Weight 59.091, kg, PRN Blood Glucose Results, Start date: 01/23/18 21:46:00 SHIP WIRER, Duration: 30 day, Stop date: 02/22/18 21:45:00 CSTN otes: (Same as: Humalog ) Roll in palms of hands gently; Do not shake `vigorously. "Single Patient Use Only " WASTE: F/P - Black; E - Municipal Trash Bin Stable for 28 days at room temperature. Expires in days from Date No Longer Active 01/24/2018 [facility] Glucagon 1 mg, Route: IM, Drug form: PDR/INJ, PRN, Dosing Weight 59.091, kg, PRN Blood Glucose Results, Start date: 01/23/18 21:46:00 SHIP WIRER, Duration: 30 day, Stop date: 02/22/18 21:45:00 SHIP WIRER No Longer Active 01/24/2018 [facility] Dextrose 50% Syringe 25 gm, 50 mL, Route: IVP, Drug Form: INJ, Dosing Weight 59.091, kg, PRN, PRN Blood Glucose Results, Start date: 01/23/18 21:46:00 SHIP WIRER, Duration: 30 day, Stop date: 02/22/18 21:45:00 SHIP WIRER No Longer Active 01/24/2018 [facility] D5W 1/2NS + KCL 30mEq/L 1000ml (Premix) 1,000 mL 1,000 mL, Rate: 100 ml/hr, Infuse over: 10 hr, Route: IV, Dosing Weight 59.091 kg, Total Volume: 1,000, Start date: 01/23/18 15:57:00 SHIP WIRER, Duration: 30 day, Stop date: 02/22/18 15:56:00 SHIP WIRER, 1.58, [id number]: PREMIX IV - Do Not Alter WASTE: F/P - Sink; E - Municipal Trash Bin Inactive 01/23/2018 [facility] Sucralfate 100 MG/ML Oral Suspension [Carafate] 1 gm, 1 tab, Route: PO, Drug form: TAB, QID, Dosing Weight 59.091, kg, Start date: 01/23/18 9:00:00 SHIP WIRER, Duration: 30 day, Stop date: 02/21/18 21:00:00 CSTNotes: May interfere w/enteral feeds - Take 1 hr before or 2 hr after antacids, dairy pdt, meals & minerals - On empty stomach. For patients unable to swallow tablet, dissolve in 10mL - 30mL of water or juice and stir before giving. (Same As: Carafate) No Longer Active 01/23/2018 [facility] Sodium Chloride 0.9% IV 1,000 mL 1,000 mL, Rate: 25 ml/hr, Infuse over: 40 hr, Route: IV, Dosing Weight 59.091 kg, Total Volume: 1,000, Start date: 01/23/18 8:24:00 SHIP WIRER, Duration: 1 day, Stop date: 01/24/18 8:23:00 SHIP WIRER, 1.58, m2 Inactive 01/23/2018 [facility] Amlodipine 10 mg, 2 tab, Route: PO, Drug form: TAB, Daily, Dosing Weight 59.091, kg, Start date: 01/22/18 9:00:00 SHIP WIRER, Duration: 30 day, Stop date: 03/22/18 9:00:00 CSTNotes: (Same as: Norvasc) No Longer Active 01/22/2018 [facility] Sertraline 100 mg, 1 tab, Route: PO, Drug form: TAB, Daily, Dosing Weight 59.091, kg, Start date: 01/22/18 9:00:00 SHIP WIRER, Duration: 30 day, Stop date: 03/22/18 9:00:00 CSTNotes: (Same as: Zoloft) No Longer Active 01/22/2018 [facility] Protonix 40 mg, 1 tab, Route: PO, Drug form: ECTAB, Daily, Dosing Weight 59.091, kg, Start date: 01/22/18 9:00:00 SHIP WIRER, Duration: 30 day, Stop date: 02/20/18 9:00:00 CSTNotes: Tablet should not be chewed or crushed. (Same as: Protonix) No Longer Active 01/22/2018 [facility] 24 HR Metoprolol Tartrate 25 MG Extended Release Tablet [Toprol] 25 mg, 1 tab, Route: PO, Drug form: ERTAB, Daily, Start date: 01/22/18 9:00:00 SHIP WIRER, Duration: 30 day, Stop date: 03/22/18 9:00:00 CSTNotes: (Same as: Toprol XL) Do Not Crush No Longer Active 01/22/2018 [facility] gabapentin 300 MG Oral Capsule 300 mg, 1 cap, Route: PO, Drug form: CAP, Daily, Dosing Weight 59.091, kg, Start date: 01/22/18 9:00:00 SHIP WIRER, Duration: 30 day, Stop date: 02/20/18 9:00:00 CSTNotes: (Same as: Neurontin) No Longer Active 01/22/2018 [facility] sodium bicarbonate 8.4% 50 mEq, 50 ml, Route: IVP, Drug Form: INJ, Dosing Weight 59.091, kg, ONCE, Start date: 01/22/18 6:44:00 SHIP WIRER, Stop date: 01/22/18 6:44:00 CSTNotes: (sodium bicarb 8.4% (1 mEq/ml) 50 ml syringe) Inactive 01/22/2018 [facility] Magnesium Sulfate 2 gm, 50 mL, Route: IV, Drug form: INJ, ONCE, Dosing Weight 59.091, kg, Start date: 01/22/18 6:43:00 SHIP WIRER, Stop date: 01/22/18 6:43:00 CSTNotes: WASTE: F/P - Sink; E - Municipal Trash Bin Inactive 01/22/2018 [facility] Water 1000 MG/ML Injectable Solution 1,000 mL, Rate: 125 ml/hr, Infuse over: 9.2 hr, Route: IV, Dosing Weight 59.091 kg, Total Volume: 1,150, Start date: 01/22/18 6:43:00 SHIP WIRER, Duration: 30 day, Stop date: 02/21/18 6:42:00 SHIP WIRER, 1.58, [id number]: (sodium bicarb 8.4% (1 mEq/ml) 50 ml VL) No Longer Active 01/22/2018 [facility] carvedilol 6.25 mg, 2 tab, Route: PO, Drug form: TAB, BID, Dosing Weight 59.091, kg, Start date: 01/21/18 21:00:00 SHIP WIRER, Duration: 30 day, Stop date: 02/20/18 9:00:00 CSTNotes: Give with food. (Same As: Coreg) Inactive 01/22/2018 [facility] sennosides, INTERMEDIATE 17.2 mg, 2 tab, Route: PO, Drug Form: TAB, Dosing Weight 59.091, kg, Bedtime, Start date: 01/21/18 21:00:00 SHIP WIRER, Duration: 30 day, Stop date: 02/19/18 21:00:00 CSTNotes: (Same as: Senokot) No Longer Active 01/22/2018 [facility] Insulin Lispro 2 unit, 0.02 mL, Route: SUB-Q, Drug form: SOLN, Bedtime, Dosing Weight 59.091, kg, PRN Blood Glucose Results, Start date: 01/21/18 17:44:00 SHIP WIRER, Duration: 30 day, Stop date: 02/20/18 17:43:00 CSTNotes: (Same as: Humalog ) Roll in palms of hands gently; Do not shake `vigorously. "Single Patient Use Only " WASTE: F/P - Black; E - Municipal Trash Bin Stable for 28 days at room temperature. Expires in days from Date No Longer Active 01/21/2018 [facility] Glucagon 1 mg, Route: IM, PRN, Dosing Weight 59.091, kg, PRN Blood Glucose Results, Start date: 01/21/18 17:44:00 SHIP WIRER, Duration: 30 day, Stop date: 02/20/18 17:43:00 SHIP WIRER Inactive 01/21/2018 [facility] Dextrose 50% Syringe 50 mL, Route: IVP, Dosing Weight 59.091, kg, PRN, PRN Blood Glucose Results, Start date: 01/21/18 17:44:00 SHIP WIRER, Duration: 30 day, Stop date: 02/20/18 17:43:00 SHIP WIRER Inactive 01/21/2018 [facility] Morphine 2 mg, 1 mL, Route: IV, Drug form: SOLN, Q4H, Dosing Weight 59.091, kg, PRN Pain Score 6-10, Start date: 01/21/18 17:41:00 SHIP WIRER, Duration: 30 day, Stop date: 02/20/18 17:40:00 SHIP WIRER No Longer Active 01/21/2018 [facility] Phenergan 12.5 mg, 0.5 mL, Route: IVPB, Q6H, Dosing Weight 59.091, kg, PRN as needed for nausea/vomiting, Start date: 01/21/18 17:41:00 SHIP WIRER, Duration: 30 day, Stop date: 02/20/18 17:40:00 CSTNotes: Do not give IV push. (Same as: Phenergan) No Longer Active 01/21/2018 [facility] NS (Bolus) IV 1,000 mL, 500 ml/hr, Infuse Over: 2 hr, Route: IV, 1,000, Drug form: INJ, ONCE, Priority: STAT, Dosing Weight 59.091 kg, Start date: 01/21/18 17:39:00 SHIP WIRER, Stop date: 01/21/18 17:39:00 SHIP WIRER Inactive 01/21/2018 [facility] Docusate 100 mg, 1 cap, Route: PO, Drug form: CAP, BID, Dosing Weight 59.091, kg, Start date: 01/21/18 17:00:00 SHIP WIRER, Duration: 30 day, Stop date: 02/20/18 9:00:00 CSTNotes: (Same as: Colace) (Do Not Crush) No Longer Active 01/21/2018 [facility] Metoprolol Succinate ER 50 mg oral tablet, extended release 50 mg=1 tab, PO, Daily, TAKE 1 TABLET BY MOUTH EVERY DAY Active 01/21/2018 [facility] Lorazepam 0.5 mg, 1 tab, Route: PO, Drug form: TAB, BID, Dosing Weight 59.091, kg, PRN Anxiety, Start date: 01/21/18 12:38:00 SHIP WIRER, Duration: 30 day, Stop date: 02/20/18 12:37:00 CSTNotes: (Same as: Ativan) No Longer Active 01/21/2018 [facility] Phenergan 25 mg, 1 mL, Route: IVPB, Q6H, Dosing Weight 59.091, kg, PRN Nausea & Vomiting, Start date: 01/21/18 12:37:00 SHIP WIRER, Duration: 30 day, Stop date: 02/20/18 12:36:00 CSTNotes: Do not give IV push. (Same as: Phenergan) Inactive 01/21/2018 [facility] Acetaminophen 325 MG / Hydrocodone Bitartrate 5 MG Oral Tablet [[place] 5/325] 1 tab, Route: PO, Drug Form: TAB, Dosing Weight 59.091, kg, Q6H, PRN Pain Score 1-3, Start date: 01/21/18 12:35:00 SHIP WIRER, Duration: 30 day, Stop date: 02/20/18 12:34:00 CSTNotes: (Same as: [place] 325/5) Do not exceed 4gm/day of acetaminophen. No Longer Active 01/21/2018 [facility] Morphine 4 mg, 1 mL, Route: IVP, Drug form: SOLN, Q4H, Dosing Weight 59.091, kg, PRN Pain Score 7-10, Start date: 01/21/18 12:35:00 SHIP WIRER, Duration: 30 day, Stop date: 02/20/18 12:34:00 CSTNotes: (Same as:MORPhine Sulfate) Inactive 01/21/2018 [facility] NS (Bolus) IV 1,000 mL, 500 ml/hr, Infuse Over: 2 hr, Route: IV, 1,000, Drug form: INJ, ONCE, Priority: STAT, Dosing Weight 59.091 kg, Start date: 01/21/18 12:33:00 SHIP WIRER, Stop date: 01/21/18 12:33:00 SHIP WIRER Inactive 01/21/2018 [facility] Magnesium Sulfate 2 gm, 50 mL, Route: IVPB, Drug form: INJ, ONCE, Dosing Weight 59.091, kg, Start date: 01/21/18 12:32:00 SHIP WIRER, Stop date: 01/21/18 12:32:00 CSTNotes: WASTE: F/P - Sink; E - Municipal Trash Bin Inactive 01/21/2018 [facility] Morphine 4 mg, Route: IVP, ONCE, Dosing Weight 59.091, kg, Start date: 01/21/18 10:30:00 SHIP WIRER, Stop date: 01/21/18 10:30:00 SHIP WIRER Inactive 01/21/2018 [facility] NS 1,000 mL 1,000 mL, Rate: 125 ml/hr, Infuse over: 8 hr, Route: IV, Dosing Weight 59.091 kg, Total Volume: 1,000, Start date: 01/21/18 10:10:00 SHIP WIRER, Duration: 30 day, Stop date: 02/20/18 10:09:00 SHIP WIRER, 1.58, m2 No Longer Active 01/21/2018 [facility] NS 500 mL 500 mL, Rate: 1,000 ml/hr, Infuse over: 0.5 hr, Route: IV, Dosing Weight 59.091 kg, Total Volume: 500, Start date: 01/21/18 10:10:00 SHIP WIRER, Duration: 1 doses or times, Stop date: 01/21/18 14:09:00 SHIP WIRER, Bolus Dose, 1.58, m2 Inactive 01/21/2018 [facility] Dextrose 50% Syringe 25 gm, 50 mL, Route: IVP, Drug Form: INJ, Dosing Weight 59.091, kg, PRN, PRN Blood Glucose Results, Start date: 01/21/18 9:40:00 SHIP WIRER, Duration: 30 day, Stop date: 02/20/18 9:39:00 SHIP WIRER No Longer Active 01/21/2018 [facility] Glucagon 1 mg, Route: IM, Drug form: PDR/INJ, PRN, Dosing Weight 59.091, kg, PRN Blood Glucose Results, Start date: 01/21/18 9:40:00 SHIP WIRER, Duration: 30 day, Stop date: 02/20/18 9:39:00 SHIP WIRER No Longer Active 01/21/2018 [facility] Acetaminophen 650 mg, 2 tab, Route: PO, Drug form: TAB, Q4H, Dosing Weight 59.091, kg, PRN For Temp > 100.4 F, Start date: 01/21/18 9:40:00 SHIP WIRER, Duration: 30 day, Stop date: 02/20/18 9:39:00 CSTNotes: Do not exceed 4 gm/day. (Same as: Tylenol) No Longer Active 01/21/2018 [facility] Melatonin 3 mg, 1 tab, Route: PO, Drug form: TAB, Bedtime, Dosing Weight 59.091, kg, PRN Insomnia, Start date: 01/21/18 9:40:00 SHIP WIRER, Duration: 30 day, Stop date: 02/20/18 9:39:00 CSTNotes: (Same as: Melatonin) No Longer Active 01/21/2018 [facility] Ondansetron 4 mg, 2 mL, Route: IVP, Drug form: INJ, Q8H, Dosing Weight 59.091, kg, PRN Nausea & Vomiting, Start date: 01/21/18 9:40:00 SHIP WIRER, Duration: 30 day, Stop date: 02/20/18 9:39:00 CSTNotes: (Same as: Zofran) MEDICATION WASTE Product Size: 4 mg Product Wasted: ___ mg No Longer Active 01/21/2018 [facility] Metoprolol 5 mg, Route: IVP, Drug form: INJ, ONCE, Dosing Weight 59.091, kg, Priority: STAT, Start date: 01/21/18 9:37:00 SHIP WIRER, Stop date: 01/21/18 9:37:00 SHIP WIRER Inactive 01/21/2018 [facility] Morphine 4 mg, 1 mL, Route: IVP, Drug form: SOLN, ONCE, Dosing Weight 59.091, kg, Priority: STAT, Start date: 01/21/18 8:05:00 SHIP WIRER, Stop date: 01/21/18 8:05:00 CSTNotes: (Same as:MORPhine Sulfate) Inactive 01/21/2018 [facility] Sodium Chloride 0.9% (Bolus) IV 1,000 mL, 1000 ml/hr, Infuse Over: 1 hr, Route: IV, 1,000, Drug form: INJ, ONCE, Priority: STAT, Dosing Weight 59.091 kg, Start date: 01/21/18 7:58:00 SHIP WIRER, Stop date: 01/21/18 7:58:00 SHIP WIRER Inactive 01/21/2018 [facility] Ondansetron 4 mg, Route: IVP, Drug form: INJ, ONCE, Dosing Weight 59.091, kg, Priority: STAT, Start date: 01/21/18 6:36:00 SHIP WIRER, Stop date: 01/21/18 6:36:00 SHIP WIRER Inactive 01/21/2018 [facility] Sodium Chloride 0.9% (Bolus) IV 1,000 mL, Infuse Over: 1 hr, Route: IV, ONCE, Priority: STAT, Dosing Weight 59.091 kg, Start date: 01/21/18 6:36:00 SHIP WIRER, Stop date: 01/21/18 6:36:00 SHIP WIRER Inactive 01/21/2018 [facility] Morphine 4 mg, Route: IVP, ONCE, Dosing Weight 59.091, kg, Priority: STAT, Start date: 01/21/18 6:36:00 SHIP WIRER, Stop date: 01/21/18 6:36:00 SHIP WIRER Inactive 01/21/2018 [facility] LORazepam 0.5 mg oral tablet 0.5 mg=1 tab, PO, BID, PRN Anxiety, # 20 tab, 0 Refill(s) Active 01/13/2018 [facility] pantoprazole 40 MG Enteric Coated Tablet [Protonix] 40 mg=1 tab, PO, Daily, # 30 tab, 0 Refill(s), Pharmacy: [facility]/pharmacy #[id number] Active 01/13/2018 [facility] Ondansetron 4 MG Disintegrating Tablet [Zofran] 4 mg=1 tab, PO, Q6H, PRN Nausea & Vomiting, Dissolve tab under tongue, # 30 tab, 0 Refill(s), Pharmacy: [facility]/pharmacy #[id number] Active 01/13/2018 [facility] Hydromorphone 1 mg, 1 mL, Route: IVP, Drug form: SOLN, ONCE, Dosing Weight 60.909, kg, Priority: STAT, Start date: 01/10/18 13:14:00 SHIP WIRER, Stop date: 01/10/18 13:14:00 CSTNotes: (Same as: Dilaudid) Inactive 01/10/2018 [facility] Adult Parenteral Nutrition Custom - Central (TPN) 1,850 mL 1,850 mL, Rate: 75 ml/hr, Infuse over: 24.7 hr, Dosing Weight 60.909, kg, Route: IV, Total Volume: 1,850 mL, Start Date: 01/07/18 22:00:00 SHIP WIRER, Duration: 24 hr, Stop date: 01/08/18 21:59:00 SHIP WIRER, Replace Every: 24.7 hr No Longer Active 01/08/2018 [facility] Adult Parenteral Nutrition Custom - Central (TPN) 1,850 mL 1,850 mL, Rate: 75 ml/hr, Infuse over: 24.7 hr, Dosing Weight 60.909, kg, Route: IV, Total Volume: 1,850 mL, Start Date: 01/06/18 22:00:00 SHIP WIRER, Duration: 24 hr, Stop date: 01/07/18 21:59:00 SHIP WIRER, Replace Every: 24 hrNotes: Central line only Must use 0.22 micron filter No Longer Active 01/07/2018 [facility] Adult Parenteral Nutrition Custom - Central (TPN) 1,850 mL 1,850 mL, Rate: 75 ml/hr, Infuse over: 24.7 hr, Dosing Weight 60.909, kg, Route: IV, Total Volume: 1,850 mL, Start Date: 01/05/18 22:00:00 SHIP WIRER, Duration: 24 hr, Stop date: 01/06/18 21:59:00 SHIP WIRER, Replace Every: 24.7 hrNotes: Central line only Must use 0.22 micron filter No Longer Active 01/06/2018 [facility] Insulin Lispro 15 unit, 0.15 mL, Route: SUB-Q, Drug form: SOLN, ONCE, Dosing Weight 60.909, kg, Start date: 01/04/18 22:20:00 SHIP WIRER, Stop date: 01/04/18 22:20:00 CSTNotes: (Same as: Humalog ) Roll in palms of hands g ently; Do not shake `vigorously. "Single Patient Use Only " WASTE: F/P - Black; E - Municipal Trash Bin Stable for 28 days at room temperature. Expires in days from Date Inactive 01/05/2018 [facility] Lovenox 30 mg, 0.3 mL, Route: SUB-Q, Drug form: INJ, [id number], Dosing Weight 60.909, kg, For CrCl Notes: (Same as: Lovenox) No Longer Active 01/05/2018 [facility] Adult Parenteral Nutrition Custom - Central (TPN) 1,850 mL 1,850 mL, Rate: 75 ml/hr, Infuse over: 24.7 hr, Dosing Weight 60.909, kg, Route: IV, Total Volume: 1,850 mL, Start Date: 01/04/18 22:00:00 SHIP WIRER, Duration: 24 hr, Stop date: 01/05/18 21:59:00 SHIP WIRER, Replace Every: 24.7 hrNotes: Central line only Must use 0.22 micron filter No Longer Active 01/05/2018 [facility] insulin glargine 15 unit, 0.15 mL, Route: SUB-Q, Drug form: SOLN, Bedtime, Start date: 01/04/18 21:00:00 SHIP WIRER, Duration: 30 day, Stop date: 02/02/18 21:00:00 CSTNotes: (Same as: Lantus) Do not hold insulin without contac ting prescriber WASTE: F/P - Black; E - Municipal Trash Bin "single patient use only" No Longer Active 01/05/2018 [facility] Levemir FlexPen 15 unit, Route: SUB-Q, Bedtime, Dosing Weight 60.909, kg, Start date: 01/04/18 21:00:00 SHIP WIRER, Duration: 30 day, Stop date: 02/02/18 21:00:00 SHIP WIRER No Longer Active 01/05/2018 [facility] Melatonin 3 mg, 1 tab, Route: PO, Drug form: TAB, Bedtime, Dosing Weight 60.909, kg, PRN Sleep, Start date: 01/04/18 15:50:00 SHIP WIRER, Duration: 30 day, Stop date: 02/03/18 15:49:00 CSTNotes: (Same as: Melatonin) No Longer Active 01/04/2018 [facility] Ativan 0.5 mg, 1 tab, Route: PO, Drug form: TAB, TID, Dosing Weight 60.909, kg, PRN Anxiety, Start date: 01/04/18 15:50:00 SHIP WIRER, Duration: 30 day, Stop date: 02/03/18 15:49:00 CSTNotes: (Same as: Ativan) No Longer Active 01/04/2018 [facility] Ambien 5 mg, 1 tab, Route: PO, Drug form: TAB, Bedtime, Dosing Weight 60.909, kg, PRN Insomnia, Start date: 01/04/18 15:24:00 SHIP WIRER, Duration: 30 day, Stop date: 02/03/18 15:23:00 CSTNotes: (Same As: Ambien) No Longer Active 01/04/2018 [facility] Amlodipine 10 mg, 2 tab, Route: PO, Drug form: TAB, Daily, Dosing Weight 60.909, kg, Start date: 01/04/18 9:00:00 SHIP WIRER, Duration: 30 day, Stop date: 02/02/18 9:00:00 CSTNotes: (Same as: Norvasc) No Longer Active 01/04/2018 [facility] carvedilol 6.25 mg, 2 tab, Route: PO, Drug form: TAB, BID, Dosing Weight 60.909, kg, Start date: 01/04/18 9:00:00 SHIP WIRER, Duration: 30 day, Stop date: 02/02/18 17:00:00 CSTNotes: Give with food. (Same As: Coreg) No Longer Active 01/04/2018 [facility] Sertraline 100 mg, 1 tab, Route: PO, Drug form: TAB, Daily, Dosing Weight 60.909, kg, Start date: 01/04/18 9:00:00 SHIP WIRER, Duration: 30 day, Stop date: 02/02/18 9:00:00 CSTNotes: (Same as: Zoloft) No Longer Active 01/04/2018 [facility] pantoprazole 40 mg, Route: IVP, Drug form: INJ, Q12H, Dosing Weight 60.909, kg, Start date: 01/04/18 9:00:00 SHIP WIRER, Duration: 30 day, Stop date: 02/02/18 21:00:00 CSTNotes: For IV push reconstitute with 10 ml 0.9% sod ium chloride and push over 2 minutes. (Same as: Protonix) No Longer Active 01/04/2018 [facility] Octreotide 50 microgram, 0.5 mL, Route: SUB-Q, Drug form: INJ, TID, Dosing Weight 60.909, kg, Start date: 01/04/18 9:00:00 SHIP WIRER, Duration: 30 day, Stop date: 02/02/18 17:00:00 CSTNotes: (Same As: SandoSTATIN). Ref rigerate. MEDICATION WASTE Product Size: 100 microgram Product Wasted: ___ microgram No Longer Active 01/04/2018 [facility] 24 HR Metoprolol Tartrate 25 MG Extended Release Tablet [Toprol] 25 mg, 1 tab, Route: PO, Drug form: ERTAB, Daily, Start date: 01/04/18 9:00:00 SHIP WIRER, Duration: 30 day, Stop date: 02/02/18 9:00:00 SHIP WIRER No Longer Active 01/04/2018 [facility] Adult Parenteral Nutrition Custom - Central (TPN) 1,370 mL 1,370 mL, Rate: 55 ml/hr, Infuse over: 24.9 hr, Dosing Weight 60.909, kg, Route: IV, Total Volume: 1,370 mL, Start Date: 01/03/18 22:00:00 SHIP WIRER, Duration: 24 hr, Stop date: 01/04/18 21:59:00 SHIP WIRER, Replace Every: 24.9 hr No Longer Active 01/04/2018 [facility] Lorazepam 0.25 mg, 0.5 tab, Route: PO, Drug form: TAB, BID, Dosing Weight 60.909, kg, PRN Anxiety, Start date: 01/03/18 21:39:00 SHIP WIRER, Duration: 30 day, Stop date: 02/02/18 21:38:00 CSTNotes: (Same as: Ativan) No Longer Active 01/04/2018 [facility] octreotide 50 mcg/mL injectable solution 50 microgram, SUB-Q, TID, # 1 ml, 0 Refill(s) No Longer Active 01/04/2018 [facility] gabapentin 300 MG Oral Capsule 300 mg=1 cap, PO, Daily, 0 Refill(s) No Longer Active 01/04/2018 [facility] Furosemide 40 MG Oral Tablet [Lasix] 40 mg=1 tab, PO, Daily, # 90 tab, 0 Refill(s) Active 01/04/2018 [facility] 0.4 ML Enoxaparin sodium 100 MG/ML Prefilled Syringe [Lovenox] 40 mg, SUB-Q, Daily, # 7 ea, 0 Refill(s) No Longer Active 01/04/2018 [facility] ziprasidone 5 mg, IM, Q6H, 0 Refill(s) No Longer Active 01/04/2018 [facility] Insulin, Aspart, Human SUB-Q, TID-Before Meals, 0 Refill(s) Active 01/04/2018 [facility] Diclofenac Sodium 0.01 MG/MG Topical Gel 2 gm=, TOP, QID, 0 Refill(s) No Longer Active 01/04/2018 [facility] 1 ML Hydromorphone Hydrochloride 1 MG/ML Prefilled Syringe [Dilaudid] 1 mg=1 ml, IM, Q4H, PRN Pain, 0 Refill(s) No Longer Active 01/04/2018 [facility] LORazepam 0.5 mg oral tablet 0.25 mg=0.5 tab, PO, BID, PRN Anxiety, # 15 tab, 0 Refill(s) No Longer Active 01/04/2018 [facility] 168 HR Clonidine 0.60997 MG/HR Transdermal Patch 1 patch, TOP, qWeek, # 4 patch, 0 Refill(s) No Longer Active 01/04/2018 [facility] carvedilol 6.25 mg oral tablet 6.25 mg=1 tab, PO, BID, # 180 tab, 0 Refill(s) No Longer Active 01/04/2018 [facility] amLODIPine 10 mg oral tablet 10 mg=1 tab, PO, Daily, # 90 tab, 0 Refill(s) Active 01/04/2018 [facility] metoprolol tartrate 25 mg oral tablet 25 mg=1 tab, PO, BID, # 60 tab, 0 Refill(s) No Longer Active 01/04/2018 [facility] Lidocaine 4 %, IV, Daily, 0 Refill(s) No Longer Active 01/04/2018 [facility] Lidocaine 0.05 MG/MG Transdermal Patch TOP, Daily, 0 Refill(s) No Longer Active 01/04/2018 [facility] sertraline 100 mg oral tablet 100 mg=1 tab, PO, Daily, # 30 tab, 0 Refill(s) Active 01/04/2018 [facility] Acetaminophen 325 MG / Hydrocodone Bitartrate 10 MG Oral Tablet [[place] 10/325] 1 tab, PO, Q4H, PRN for pain, # 24 tab, 0 Refill(s) Active 01/04/2018 [facility] Albuterol 0.833 MG/ML / Ipratropium [place] 0.167 MG/ML Inhalant Solution 3 mL, INHALATION, Q6H, PRN Wheezing, # 30 ea, 1 Refill(s) Active 01/04/2018 [facility] pantoprazole 40 mg intravenous injection 40 mg, IV, Q12H, 0 Refill(s) No Longer Active 01/04/2018 [facility] Hydralazine 10 mg, IV, Q4H, PRN Hypertension, 0 Refill(s) No Longer Active 01/04/2018 [facility] Ondansetron 2 MG/ML Injectable Solution [Zofran] 4 mg=2 ml, IV, Q6H, PRN Nausea & Vomiting, # 1 ea, 0 Refill(s) No Longer Active 01/04/2018 [facility] Metoclopramide 5 mg, IV, 0 Refill(s) No Longer Active 01/04/2018 [facility] Acetaminophen 650 mg, PO, Q6H, PRN Pain 4-6/Temp > 100.4 F, 0 Refill(s) Active 01/04/2018 [facility] Tylenol 650 mg, 2 tab, Route: PO, Drug form: TAB, Q6H, Dosing Weight 60.909, kg, PRN Pain 1-3/Temp > 100.4 F, Start date: 01/03/18 14:56:00 [employer]IP [employer]IRER, Duration: 30 day, Stop date: 02/02/18 14:55:00 CSTNotes: Do not exceed 4 gm/day. (Same as: Tylenol) No Longer Active 01/03/2018 [facility] Adult Parenteral Nutrition Custom - Central (TPN) 1,370 mL 1,370 mL, Rate: 55 ml/hr, Infuse over: 24.9 hr, Dosing Weight 60.909, kg, Route: IV Central, Total Volume: 1,370 mL, Start Date: 01/02/18 22:00:00 SHIP WIRER, Duration: 24 hr, Stop date: 01/03/18 21:59:00 SHIP WIRER, Replace Every: 24.9 hrNotes: Central line only Must use 0.22 micron filter No Longer Active 01/03/2018 [facility] Insulin Lispro 15 unit, 0.15 mL, Route: SUB-Q, Drug form: SOLN, Sliding Scale, Dosing Weight 60.909, kg, PRN Blood Glucose Results, Start date: 01/02/18 18:41:00 SHIP WIRER, Duration: 30 day, Stop date: 02/01/18 18:40:00 SHIP WIRER Notes: (Same as: Humalog ) Roll in palms of hands gently; Do not shake `vigorously. "Single Patient Use Only " WASTE: F/P - Black; E - [employer] Trash Bin Stable for 28 days at room temperature. Expires in days from Date No Longer Active 01/03/2018 [facility] Dextrose 50% Syringe 25 gm, 50 mL, Route: IVP, Drug Form: INJ, Dosing Weight 60.909, kg, PRN, PRN Blood Glucose Results, Start date: 01/02/18 18:41:00 SHIP WIRER, Duration: 30 day, Stop date: 02/01/18 18:40:00 SHIP WIRER No Longer Active 01/03/2018 [facility] Glucagon 1 mg, Route: IM, Drug form: PDR/INJ, PRN, Dosing Weight 60.909, kg, PRN Blood Glucose Results, Start date: 01/02/18 18:41:00 SHIP WIRER, Duration: 30 day, Stop date: 02/01/18 18:40:00 SHIP WIRER No Longer Active 01/03/2018 [facility] Insulin Lispro 5 unit, 0.05 mL, Route: SUB-Q, Drug form: SOLN, ONCE, Dosing Weight 60.909, kg, Start date: 01/02/18 4:18:00 SHIP WIRER, Stop date: 01/02/18 4:18:00 CSTNotes: (Same as: Humalog ) Roll in palms of hands gent ly; Do not shake `vigorously. "Single Patient Use Only " WASTE: F/P - Black; E - [employer] Trash Bin Stable for 28 days at room temperature. Expires in days from Date Inactive 01/02/2018 [facility] heparin 5,000 unit, 1 mL, Route: SUB-Q, Drug form: INJ, Q12H, Dosing Weight 60.909, kg, Start date: 01/01/18 21:00:00 SHIP WIRER, Duration: 30 day, Stop date: 01/31/18 9:00:00 CSTNotes: porcine heparin No Longer Active 01/02/2018 [facility] Clonidine Hydrochloride 0.1 MG Oral Tablet 0.1 mg, 1 tab, Route: PO, Drug form: TAB, Q8H, Dosing Weight 60.909, kg, PRN Hypertension, Start date: 01/01/18 14:49:00 SHIP WIRER, Duration: 30 day, Stop date: 01/31/18 14:48:00 SHIP WIRER, SBP >160Notes: (Same As: Catapres) No Longer Active 01/01/2018 [facility] Zofran 4 mg, 2 mL, Route: IVP, Drug form: INJ, Q8H, Dosing Weight 60.909, kg, PRN as needed for nausea/vomiting, Priority: STAT, Start date: 01/01/18 14:49:00 SHIP WIRER, Duration: 30 day, Stop date: 01/31/18 14:48:00 CSTNotes: (Same as: Zofran) MEDICATION WASTE Product Size: 4 mg Product Wasted: ___ mg No Longer Active 01/01/2018 [facility] Insulin Lispro 4 unit, 0.04 mL, Route: SUB-Q, Drug form: SOLN, Bedtime, Dosing Weight 60.909, kg, PRN Blood Glucose Results, Start date: 01/01/18 14:47:00 SHIP WIRER, Duration: 30 day, Stop date: 01/31/18 14:46:00 CSTNotes: (Same as: Humalog ) Roll in palms of hands gently; Do not shake `vigorously. "Single Patient Use Only " WASTE: F/P - Black; E - [employer] Trash Bin Stable for 28 days at room temperature. Expires in days from Date No Longer Active 01/01/2018 [facility] Glucagon 1 mg, Route: IM, Drug form: PDR/INJ, PRN, Dosing Weight 60.909, kg, PRN Blood Glucose Results, Start date: 01/01/18 14:47:00 SHIP WIRER, Duration: 30 day, Stop date: 01/31/18 14:46:00 SHIP WIRER No Longer Active 01/01/2018 [facility] Dextrose 50% Syringe 12.5 gm, 25 mL, Route: IVP, Drug Form: INJ, Dosing Weight 60.909, kg, PRN, PRN Blood Glucose Results, Start date: 01/01/18 14:47:00 SHIP WIRER, Duration: 30 day, Stop date: 01/31/18 14:46:00 SHIP WIRER No Longer Active 01/01/2018 [facility] sodium bicarbonate 8.4% additive 75 mEq + D5W 1/2NS 1,000 mL 1,000 mL, Rate: 125 ml/hr, Infuse over: 8.6 hr, Route: IV, Dosing Weight 60.909 kg, Total Volume: 1,075, Start date: 01/01/18 12:45:00 SHIP WIRER, Duration: 30 day, Stop date: 01/31/18 12:44:00 SHIP WIRER, 1.6, [id number]: (sodium bicarb 8.4% (1 mEq/ml) 50 ml VL) No Longer Active 01/01/2018 [facility] NS 500 mL 500 mL, Rate: 1,000 ml/hr, Infuse over: 0.5 hr, Route: IV, Dosing Weight 60.909 kg, Total Volume: 500, Start date: 01/01/18 12:45:00 SHIP WIRER, Duration: 1 doses or times, Stop date: 01/01/18 13:14:00 SHIP WIRER, Bolus Dose, 1.6, m2 Inactive 01/01/2018 [facility] Dilaudid 1 mg, 1 mL, Route: IV, Drug form: SOLN, Q12H, Dosing Weight 60.909, kg, PRN Dressing Change, Start date: 01/01/18 10:26:00 SHIP WIRER, Stop date: 01/31/18 9:26:00 CSTNotes: (Same as: Dilaudid) No Longer Active 01/01/2018 [facility] Acetaminophen 325 MG / Hydrocodone Bitartrate 10 MG Oral Tablet [[place] 10/325] 1 tab, Route: PO, Drug Form: TAB, Dosing Weight 60.909, kg, Q6H, PRN Pain Score 4-6, Start date: 01/01/18 10:26:00 SHIP WIRER, Duration: 30 day, Stop date: 01/31/18 10:25:00 CSTNotes: Do not exceed 4gm/day of acetaminophen. (Same as: [place] 325/10) No Longer Active 01/01/2018 [facility] Dilaudid 1 mg, 1 mL, Route: IV, Drug form: SOLN, Q6H, Dosing Weight 60.909, kg, PRN Pain Score 4-6, Start date: 01/01/18 8:31:00 SHIP WIRER, Stop date: 01/31/18 11:00:00 CSTNotes: (Same as: Dilaudid) Inactive 01/01/2018 [facility] Allergies, Adverse Reactions, Alerts Substance Category Reaction Severity Reaction type Status Date Reported Comments Source ibuprofen Assertion Drug allergy Active [facility] Motrin Assertion Drug allergy Active [facility] Immunizations No Data Provided for This Section Results Order Name Results Value Reference Range Date Interpretation Comments Source ELECTROLYTES AGAP 11.2 10.0 - 20.0 03/05/2018 [facility] ELECTROLYTES Sodium Lvl 134 135 - 145 03/05/2018 [facility] ELECTROLYTES Potassium Lvl 3.2 3.5 - 5.1 03/05/2018 [facility] ELECTROLYTES Chloride Lvl 93 95 - 109 03/05/2018 [facility] ELECTROLYTES eGFR 23 03/05/2018 Result Comment: The [...] should be multiplied by the estimated BMI. [facility] ELECTROLYTES Calcium Lvl 7.8 8.5 - 10.5 03/05/2018 [facility] ELECTROLYTES Creatinine Lvl 2.18 0.50 - 1.40 03/05/2018 [facility] ELECTROLYTES CO2 33 24 - 32 03/05/2018 [facility] ELECTROLYTES Glucose Lvl 117 70 - 99 03/05/2018 [facility] ELECTROLYTES BUN 41 7 - 22 03/05/2018 [facility] HEMATOLOGY MCH 29.8 27.0 - 31.0 03/05/2018 [facility] HEMATOLOGY MCV 90.3 80.0 - 98.0 03/05/2018 [facility] HEMATOLOGY Hct 29.1 36.0 - 48.0 03/05/2018 [facility] MPV 6.8 7.4 - 10.4 03/05/2018 [facility] HEMATOLOGY Platelet 295 133 - 450 03/05/2018 [facility] HEMATOLOGY RDW 16.3 11.5 - 14.5 03/05/2018 [facility] HEMATOLOGY RBC 3.23 4.20 - 5.40 03/05/2018 [facility] HEMATOLOGY WBC 8.5 3.7 - 10.4 03/05/2018 [facility] Hgb 9.6 12.0 - 16.0 03/05/2018 [facility] MCHC 33.0 32.0 - 36.0 03/05/2018 [facility] CHEM PANEL Glucose Lvl 150 70 - 99 03/04/2018 [facility] CHEM PANEL BUN 50 7 - 22 03/04/2018 [facility] CHEM PANEL Calcium Lvl 7.5 8.5 - 10.5 03/04/2018 [facility] CHEM PANEL Chloride Lvl 93 95 - 109 03/04/2018 [facility] CHEM PANEL CO2 30 24 - 32 03/04/2018 [facility] CHEM PANEL AGAP 15.7 10.0 - 20.0 03/04/2018 [facility] CHEM PANEL eGFR 20 03/04/2018 Result Comment: [...] Sodium Lvl 135 135 - 145 03/04/2018 [facility] CHEM PANEL Potassium Lvl 3.7 3.5 - 5.1 03/04/2018 [facility] CHEM PANEL Creatinine Lvl 2.41 0.50 - 1.40 03/04/2018 [facility] CHEM PANEL eGFR 14 03/03/2018 Result Comment: [...] Glucose Lvl 211 70 - 99 03/03/2018 [facility] CHEM PANEL Creatinine Lvl 3.34 0.50 - 1.40 03/03/2018 [facility] CHEM PANEL Potassium Lvl 3.5 3.5 - 5.1 03/03/2018 [facility] CHEM PANEL Sodium Lvl 134 135 - 145 03/03/2018 [facility] CHEM PANEL Chloride Lvl 88 95 - 109 03/03/2018 [facility] CHEM PANEL Calcium Lvl 8.3 8.5 - 10.5 03/03/2018 [facility] CHEM PANEL CO2 31 24 - 32 03/03/2018 [facility] CHEM PANEL AGAP 18.5 10.0 - 20.0 03/03/2018 [facility] CHEM PANEL Magnesium Lvl 2.8 1.8 - 2.4 03/01/2018 [facility] CHEM PANEL Phosphorus 3.5 2.5 - 4.5 03/01/2018 [facility] PARATHYROID PROFILE Ca Ion WB 1.15 1.05 - 1.25 03/01/2018 [facility] PARATHYROID PROFILE Ca Norm WB 1.15 1.05 - 1.25 03/01/2018 [facility] CHEM PANEL Phosphorus 4.2 2.5 - 4.5 02/28/2018 [facility] CHEM PANEL Magnesium Lvl 0.5 1.8 - 2.4 02/28/2018 Result Comment: Critical Result(s) called to Pushpa Hester at 02/28/2018 10:16 by DMF. Read back OK. [facility] CHEM PANEL Phosphorus 2.1 2.5 - 4.5 02/28/2018 [facility] CHEM PANEL Magnesium Lvl <0.3 1.8 - 2.4 02/28/2018 Result Comment: Critical Result(s) called to RN. Milly Thao at 02/28/2018 05:40 by drt. Read back OK. [facility] CHEM PANEL Vitamin D, 25-OH, Total 24.8 30.0 - 100.0 02/27/2018 [facility] PARATHYROID PROFILE PTH Intact 50.3 18.4 - 80.1 02/27/2018 [facility] HEMATOLOGY Lymphocytes # 2.3 1.0 - 5.5 02/27/2018 [facility] HEMATOLOGY Basophils # 0.1 0.0 - 0.2 02/27/2018 [facility] HEMATOLOGY Monocytes # 1.0 0.0 - 0.8 02/27/2018 [facility] HEMATOLOGY Eosinophils # 0.2 0.0 - 0.5 02/27/2018 [facility] HEMATOLOGY Neutrophils # 5.2 1.5 - 8.1 02/27/2018 [facility] HEMATOLOGY Basophils 1.0 0.0 - 1.0 02/27/2018 [facility] HEMATOLOGY Eosinophils 2.0 0.0 - 4.0 02/27/2018 [facility] HEMATOLOGY Lymphocytes 26.5 20.0 - 40.0 02/27/2018 [facility] HEMATOLOGY Monocytes 11.6 2.0 - 12.0 02/27/2018 [facility] HEMATOLOGY Segs 58.9 45.0 - 75.0 02/27/2018 [facility] HEMATOLOGY MCHC 32.6 32.0 - 36.0 02/27/2018 [facility] HEMATOLOGY MPV 6.9 7.4 - 10.4 02/27/2018 [facility] HEMATOLOGY Platelet 382 133 - 450 02/27/2018 [facility] HEMATOLOGY RDW 16.5 11.5 - 14.5 02/27/2018 [facility] HEMATOLOGY MCH 29.5 27.0 - 31.0 02/27/2018 [facility] HEMATOLOGY MCV 90.4 80.0 - 98.0 02/27/2018 [facility] HEMATOLOGY RBC 3.24 4.20 - 5.40 02/27/2018 [facility] HEMATOLOGY WBC 8.8 3.7 - 10.4 02/27/2018 [facility] HEMATOLOGY Hct 29.3 36.0 - 48.0 02/27/2018 [facility] HEMATOLOGY Hgb 9.6 12.0 - 16.0 02/27/2018 [facility] HEMATOLOGY MCV 88.6 80.0 - 98.0 02/26/2018 [facility] HEMATOLOGY MCH 29.8 27.0 - 31.0 02/26/2018 [facility] HEMATOLOGY MCHC 33.7 32.0 - 36.0 02/26/2018 [facility] HEMATOLOGY MPV 6.5 7.4 - 10.4 02/26/2018 [facility] HEMATOLOGY Hct 25.7 36.0 - 48.0 02/26/2018 [facility] HEMATOLOGY Platelet 432 133 - 450 02/26/2018 [facility] HEMATOLOGY RDW 16.1 11.5 - 14.5 02/26/2018 [facility] HEMATOLOGY WBC 9.9 3.7 - 10.4 02/26/2018 [facility] HEMATOLOGY RBC 2.91 4.20 - 5.40 02/26/2018 [facility] HEMATOLOGY Hgb 8.7 12.0 - 16.0 02/26/2018 [facility] LIPIDS Chol 106 <=199 mg/dL 02/26/2018 [facility] LIPIDS Trig 220 <=149 mg/dL 02/26/2018 [facility] LIPIDS HDL 34 >=61 mg/dL 02/26/2018 [facility] LIPIDS LDL (Calculated) 28 <=99 mg/dL 02/26/2018 [facility] LIPIDS VLDL 44 02/26/2018 [facility] LIPIDS CHD Risk 3.12 3.90 - 5.80 02/26/2018 [facility] SPECIAL CHEMISTRY Hgb A1C 6.6 <=5.6 % 02/26/2018 [facility] URINE AND STOOL UA RBC 132 0 - 2 02/26/2018 [facility] URINE AND STOOL UA Sq Epi Many /LPF Few /LPF 02/26/2018 [facility] URINE AND STOOL UA WBC >182 0 - 5 02/26/2018 [facility] URINE AND STOOL UA Bacteria Occasional /HPF None Seen /HPF 02/26/2018 [facility] URINE AND STOOL UA Mucus Few /LPF None Seen /LPF 02/26/2018 [facility] URINE AND STOOL UA Nitrite Negative (02/25/18 11:35 PM) Negative 02/26/2018 [facility] URINE AND STOOL UA Leuk Est Small *ABN* (02/25/18 11:35 PM) Negative 02/26/2018 [facility] URINE AND STOOL UA Urobilinogen 0.2 0.1 - 1.0 02/26/2018 [facility] URINE AND STOOL UA Protein 100 mg/dL Negative mg/dL 02/26/2018 [facility] URINE AND STOOL UA Color Yellow *NA* (02/25/18 11:35 PM) Yellow 02/26/2018 [facility] URINE AND STOOL UA Turbidity Cloudy *ABN* (02/25/18 11:35 PM) Clear 02/26/2018 [facility] URINE AND STOOL UA pH 5.5 5.0 - 8.0 02/26/2018 [facility] URINE AND STOOL UA Spec Grav >=1.030 *ABN* (02/25/18 11:35 PM) <=1.030 02/26/2018 [facility] URINE AND STOOL UA Blood Large *ABN* (02/25/18 11:35 PM) Negative 02/26/2018 [facility] URINE AND STOOL UA Glucose 100 mg/dL Negative mg/dL 02/26/2018 [facility] URINE AND STOOL UA Bili Moderate *ABN* (02/25/18 11:35 PM) Negative 02/26/2018 [facility] URINE AND STOOL UA Ketones Trace *ABN* (02/25/18 11:35 PM) Negative 02/26/2018 [facility] URINE CHEM U Creatinine 213.00 02/26/2018 [facility] URINE CHEM U Sodium 6 02/26/2018 [facility] Culture: Urine Specimen contains 3 or more potential pathogens; recommend correlation with urinalysis; if catheterized specimen recommend removal and recollection. If clinical situation warrants please call the laboratory for further testing. [place] [facility] [phone]. 02/26/2018 [facility] HEMATOLOGY Monocytes # 0.9 0.0 - 0.8 02/26/2018 [facility] HEMATOLOGY Basophils # 0.1 0.0 - 0.2 02/26/2018 [facility] HEMATOLOGY Lymphocytes # 1.7 1.0 - 5.5 02/26/2018 [facility] HEMATOLOGY Neutrophils # 10.8 1.5 - 8.1 02/26/2018 [facility] HEMATOLOGY Basophils 0.6 0.0 - 1.0 02/26/2018 [facility] HEMATOLOGY RBC Morph Normal (02/25/18 6:29 PM) 02/26/2018 [facility] HEMATOLOGY Plt Morph Normal (02/25/18 6:29 PM) 02/26/2018 [facility] HEMATOLOGY Segs 80.6 45.0 - 75.0 02/26/2018 [facility] Monocytes 6.4 2.0 - 12.0 02/26/2018 [facility] HEMATOLOGY Eosinophils 0.1 0.0 - 4.0 02/26/2018 [facility] Lymphocytes 12.3 20.0 - 40.0 02/26/2018 [facility] CHEM PANEL A/G Ratio 0.5 0.7 - 1.6 02/25/2018 [facility] CHEM PANEL Albumin Lvl 2.1 3.5 - 5.0 02/25/2018 [facility] CHEM PANEL Globulin 4.5 2.7 - 4.2 02/25/2018 [facility] CHEM PANEL Total Protein 6.6 6.4 - 8.4 02/25/2018 [facility] CHEM PANEL AST 22 0 - 37 02/25/2018 [facility] CHEM PANEL Alk Phos 70 39 - 136 02/25/2018 [facility] CHEM PANEL Bili Total 0.3 0.2 - 1.3 02/25/2018 [facility] CHEM PANEL ALT 11 0 - 65 02/25/2018 [facility] CHEM PANEL B/C Ratio 20 6 - 25 02/25/2018 [facility] CHEM PANEL Lactic Acid Lvl 1.1 0.5 - 2.2 02/25/2018 [facility] CHEM PANEL Procalcitonin Lvl 0.30 0.00 - 0.10 02/25/2018 [facility] URINE AND STOOL UA Protein 100 mg/dL Negative mg/dL 02/25/2018 [facility] URINE AND STOOL UA Glucose Negative (02/25/18 3:19 PM) Negative 02/25/2018 [facility] URINE AND STOOL UA Bili Small *ABN* (02/25/18 3:19 PM) Negative 02/25/2018 [facility] URINE AND STOOL UA Urobilinogen 0.2 0.1 - 1.0 02/25/2018 [facility] URINE AND STOOL UA Ketones Trace *ABN* (02/25/18 3:19 PM) Negative 02/25/2018 [facility] URINE AND STOOL UA Blood Moderate *ABN* (02/25/18 3:19 PM) Negative 02/25/2018 [facility] URINE AND STOOL UA Turbidity Marked *ABN* (02/25/18 3:19 PM) Clear 02/25/2018 [facility] URINE AND STOOL UA Spec Grav >=1.030 *ABN* (02/25/18 3:19 PM) <=1.030 02/25/2018 [facility] URINE AND STOOL UA pH 5.5 5.0 - 8.0 02/25/2018 [facility] URINE AND STOOL UA Bacteria Moderate /HPF None Seen /HPF 02/25/2018 [facility] URINE AND STOOL UA Mucus Few /LPF None Seen /LPF 02/25/2018 [facility] URINE AND STOOL UA WBC >182 /HPF 0 - 5 02/25/2018 [facility] URINE AND STOOL UA Leuk Est Moderate *ABN* (02/25/18 3:19 PM) Negative 02/25/2018 [facility] URINE AND STOOL UA Sq Epi Occasional /LPF Few /LPF 02/25/2018 [facility] URINE AND STOOL UA Nitrite Negative (02/25/18 3:19 PM) Negative 02/25/2018 [facility] URINE AND STOOL UA RBC 3-5 /HPF 0 - 2 02/25/2018 [facility] URINE AND STOOL UA Color See Note 6 (02/25/18 3:19 PM) Yellow 02/25/2018 Result Comment: Urine color is white(mucus)on 02/25/2018 16:39 by Jerome. [facility] CHEM PANEL Lipase Lvl 78 73 - 393 02/25/2018 [facility] CHEM PANEL Amylase Lvl 24 25 - 115 02/25/2018 [facility] HEMATOLOGY PTT 39.4 22.9 - 35.8 02/25/2018 [facility] HEMATOLOGY INR 1.20 0.85 - 1.17 02/25/2018 [facility] HEMATOLOGY PT 15.0 12.0 - 14.7 02/25/2018 [facility] HEMATOLOGY Basophils # 0.1 0.0 - 0.2 02/25/2018 [facility] HEMATOLOGY Lymphocytes # 1.6 1.0 - 5.5 02/25/2018 [facility] HEMATOLOGY Eosinophils # 0.1 0.0 - 0.5 02/25/2018 [facility] HEMATOLOGY Monocytes # 1.2 0.0 - 0.8 02/25/2018 [facility] HEMATOLOGY Neutrophils # 13.7 1.5 - 8.1 02/25/2018 [facility] HEMATOLOGY Basophils 0.7 0.0 - 1.0 02/25/2018 [facility] HEMATOLOGY Eosinophils 0.4 0.0 - 4.0 02/25/2018 [facility] HEMATOLOGY Lymphocytes 9.4 20.0 - 40.0 02/25/2018 [facility] HEMATOLOGY Segs 82.5 45.0 - 75.0 02/25/2018 [facility] HEMATOLOGY Monocytes 7.0 2.0 - 12.0 02/25/2018 [facility] CHEM PANEL AST 21 0 - 37 02/25/2018 [facility] CHEM PANEL Alk Phos 87 39 - 136 02/25/2018 [facility] CHEM PANEL Bili Total 0.4 0.2 - 1.3 02/25/2018 [facility] CHEM PANEL ALT 13 0 - 65 02/25/2018 [facility] CHEM PANEL A/G Ratio 0.5 0.7 - 1.6 02/25/2018 [facility] CHEM PANEL B/C Ratio 17 6 - 25 02/25/2018 [facility] CHEM PANEL Total Protein 8.4 6.4 - 8.4 02/25/2018 [facility] CHEM PANEL Albumin Lvl 2.8 3.5 - 5.0 02/25/2018 [facility] CHEM PANEL Globulin 5.6 2.7 - 4.2 02/25/2018 [facility] ELECTROLYTES AGAP 15.6 10.0 - 20.0 02/13/2018 [facility] ELECTROLYTES Calcium Lvl 6.9 8.5 - 10.5 02/13/2018 Result Comment: Critical Result(s) called to Ilana Aguayo at 02/13/2018 07:53 by DMF. Read back OK. [facility] ELECTROLYTES Creatinine Lvl 1.10 0.50 - 1.40 02/13/2018 [facility] ELECTROLYTES Sodium Lvl 144 135 - 145 02/13/2018 [facility] ELECTROLYTES Potassium Lvl 3.6 3.5 - 5.1 02/13/2018 [facility] ELECTROLYTES CO2 19 24 - 32 02/13/2018 [facility] ELECTROLYTES Chloride Lvl 113 95 - 109 02/13/2018 [facility] ELECTROLYTES Glucose Lvl 299 70 - 99 02/13/2018 [facility] ELECTROLYTES BUN 11 7 - 22 02/13/2018 [facility] ELECTROLYTES eGFR 52 02/13/2018 Result Comment: The [...] should be multiplied by the estimated BMI. [facility] CHEM PANEL Phosphorus 2.9 2.5 - 4.5 02/11/2018 [facility] CHEM PANEL eGFR 61 02/11/2018 Result Comment: [...] should be multiplied by the estimated BMI. [facility] CHEM PANEL Chloride Lvl 118 95 - 109 02/11/2018 [facility] CHEM PANEL Potassium Lvl 3.6 3.5 - 5.1 02/11/2018 [facility] CHEM PANEL AGAP 12.6 10.0 - 20.0 02/11/2018 [facility] CHEM PANEL CO2 15 24 - 32 02/11/2018 [facility] CHEM PANEL Calcium Lvl 6.5 8.5 - 10.5 02/11/2018 Result Comment: Critical Result(s) called to kelly [email or web address] at 02/11/2018 07:06 by EFA. Read back OK. [facility] CHEM PANEL Glucose Lvl 80 70 - 99 02/11/2018 [facility] CHEM PANEL Sodium Lvl 142 135 - 145 02/11/2018 [facility] CHEM PANEL Creatinine Lvl 0.96 0.50 - 1.40 02/11/2018 [facility] CHEM PANEL BUN 8 7 - 22 02/11/2018 [facility] HEMATOLOGY Monocytes # 0.7 0.0 - 0.8 02/11/2018 [facility] HEMATOLOGY Eosinophils # 0.2 0.0 - 0.5 02/11/2018 [facility] HEMATOLOGY Segs 56.2 45.0 - 75.0 02/11/2018 [facility] HEMATOLOGY Lymphocytes 30.3 20.0 - 40.0 02/11/2018 [facility] HEMATOLOGY Monocytes 10.1 2.0 - 12.0 02/11/2018 [facility] HEMATOLOGY Eosinophils 2.9 0.0 - 4.0 02/11/2018 [facility] HEMATOLOGY Neutrophils # 3.9 1.5 - 8.1 02/11/2018 [facility] HEMATOLOGY Basophils 0.5 0.0 - 1.0 02/11/2018 [facility] HEMATOLOGY Lymphocytes # 2.1 1.0 - 5.5 02/11/2018 [facility] HEMATOLOGY MPV 7.0 7.4 - 10.4 02/11/2018 [facility] HEMATOLOGY MCHC 33.0 32.0 - 36.0 02/11/2018 [facility] HEMATOLOGY RDW 15.4 11.5 - 14.5 02/11/2018 [facility] HEMATOLOGY Platelet 264 133 - 450 02/11/2018 [facility] HEMATOLOGY WBC 7.0 3.7 - 10.4 02/11/2018 [facility] HEMATOLOGY RBC 2.55 4.20 - 5.40 02/11/2018 [facility] HEMATOLOGY Hgb 7.5 12.0 - 16.0 02/11/2018 [facility] HEMATOLOGY Hct 22.6 36.0 - 48.0 02/11/2018 [facility] HEMATOLOGY MCV 88.6 80.0 - 98.0 02/11/2018 [facility] HEMATOLOGY MCH 29.3 27.0 - 31.0 02/11/2018 [facility] URINE AND STOOL UA pH 6.0 5.0 - 8.0 02/08/2018 [facility] URINE AND STOOL UA Urobilinogen <=1.0 mg/dL 0.1 - 1.0 02/08/2018 [facility] URINE AND STOOL UA Spec Grav 1.017 <=1.030 02/08/2018 [facility] URINE AND STOOL UA Turbidity Marked *ABN* (02/07/18 10:19 PM) Clear 02/08/2018 [facility] URINE AND STOOL UA Color Yellow *NA* (02/07/18 10:19 PM) Yellow 02/08/2018 [facility] URINE AND STOOL UA Blood Negative (02/07/18 10:19 PM) Negative 02/08/2018 [facility] URINE AND STOOL UA Glucose 50 mg/dL Negative mg/dL 02/08/2018 [facility] URINE AND STOOL UA Ketones Negative *NA* (02/07/18 10:19 PM) Negative 02/08/2018 [facility] URINE AND STOOL UA Protein >=300 mg/dL Negative mg/dL 02/08/2018 [facility] URINE AND STOOL UA Bili Negative *NA* (02/07/18 10:19 PM) Negative 02/08/2018 [facility] URINE AND STOOL UA Leuk Est Large *ABN* (02/07/18 10:19 PM) Negative 02/08/2018 [facility] URINE AND STOOL Micro? Performed (02/07/18 10:19 PM) 02/08/2018 [facility] URINE AND STOOL UA Nitrite Negative (02/07/18 10:19 PM) Negative 02/08/2018 [facility] URINE AND STOOL UA Sq Epi Occasional /LPF Few /LPF 02/08/2018 [facility] URINE AND STOOL UA Bacteria Few /HPF None Seen /HPF 02/08/2018 [facility] URINE AND STOOL UA RBC 10 0 - 2 02/08/2018 [facility] URINE AND STOOL UA WBC >182 0 - 5 02/08/2018 [facility] Culture: Urine No Growth 02/08/2018 [facility] CHEM PANEL eGFR 38 02/05/2018 Result Comment: [...] should be multiplied by the estimated BMI. [facility] CHEM PANEL BUN 13 7 - 22 02/05/2018 [facility] CHEM PANEL Creatinine Lvl 1.42 0.50 - 1.40 02/05/2018 [facility] CHEM PANEL Glucose Lvl 112 70 - 99 02/05/2018 [facility] CHEM PANEL Calcium Lvl 7.6 8.5 - 10.5 02/05/2018 [facility] CHEM PANEL Sodium Lvl 140 135 - 145 02/05/2018 [facility] CHEM PANEL Potassium Lvl 3.6 3.5 - 5.1 02/05/2018 [facility] CHEM PANEL AGAP 13.6 10.0 - 20.0 02/05/2018 [facility] CHEM PANEL CO2 28 24 - 32 02/05/2018 [facility] CHEM PANEL Chloride Lvl 102 95 - 109 02/05/2018 [facility] HEMATOLOGY WBC 7.6 3.7 - 10.4 02/04/2018 [facility] HEMATOLOGY RBC 2.76 4.20 - 5.40 02/04/2018 [facility] MCHC 33.5 32.0 - 36.0 02/04/2018 [facility] MCH 29.4 27.0 - 31.0 02/04/2018 [facility] Hct 24.2 36.0 - 48.0 02/04/2018 [facility] HEMATOLOGY Hgb 8.1 12.0 - 16.0 02/04/2018 [facility] MCV 87.8 80.0 - 98.0 02/04/2018 [facility] RDW 14.8 11.5 - 14.5 02/04/2018 [facility] Platelet 355 133 - 450 02/04/2018 [facility] MPV 6.9 7.4 - 10.4 02/04/2018 [facility] Lymphocytes # 1.7 1.0 - 5.5 02/04/2018 [facility] Monocytes # 0.5 0.0 - 0.8 02/04/2018 [facility] HEMATOLOGY Basophils 0.6 0.0 - 1.0 02/04/2018 [facility] HEMATOLOGY Neutrophils # 5.2 1.5 - 8.1 02/04/2018 [facility] HEMATOLOGY Lymphocytes 22.7 20.0 - 40.0 02/04/2018 [facility] HEMATOLOGY Monocytes 6.9 2.0 - 12.0 02/04/2018 [facility] HEMATOLOGY Segs 68.6 45.0 - 75.0 02/04/2018 [facility] HEMATOLOGY Eosinophils 1.2 0.0 - 4.0 02/04/2018 [facility] HEMATOLOGY Eosinophils # 0.1 0.0 - 0.5 02/04/2018 [facility] URINE CHEM U Creatinine 114.00 02/01/2018 [facility] URINE CHEM U Sodium 10 02/01/2018 [facility] HEMATOLOGY MPV 7.8 7.4 - 10.4 02/01/2018 [facility] HEMATOLOGY Platelet 303 133 - 450 02/01/2018 [facility] HEMATOLOGY Hgb 8.1 12.0 - 16.0 02/01/2018 [facility] HEMATOLOGY Hct 24.4 36.0 - 48.0 02/01/2018 [facility] HEMATOLOGY WBC 11.4 3.7 - 10.4 02/01/2018 [facility] HEMATOLOGY RBC 2.72 4.20 - 5.40 02/01/2018 [facility] HEMATOLOGY MCV 89.7 80.0 - 98.0 02/01/2018 [facility] HEMATOLOGY MCH 29.8 27.0 - 31.0 02/01/2018 [facility] HEMATOLOGY MCHC 33.3 32.0 - 36.0 02/01/2018 [facility] HEMATOLOGY RDW 15.5 11.5 - 14.5 02/01/2018 [facility] HEMATOLOGY Basophils # 0.1 0.0 - 0.2 02/01/2018 [facility] HEMATOLOGY Eosinophils # 0.2 0.0 - 0.5 02/01/2018 [facility] HEMATOLOGY Neutrophils # 8.2 1.5 - 8.1 02/01/2018 [facility] HEMATOLOGY Lymphocytes # 2.1 1.0 - 5.5 02/01/2018 [facility] HEMATOLOGY Monocytes # 0.8 0.0 - 0.8 02/01/2018 [facility] HEMATOLOGY Basophils 1.2 0.0 - 1.0 02/01/2018 [facility] HEMATOLOGY Eosinophils 1.5 0.0 - 4.0 02/01/2018 [facility] HEMATOLOGY Lymphocytes 18.5 20.0 - 40.0 02/01/2018 [facility] HEMATOLOGY Monocytes 6.7 2.0 - 12.0 02/01/2018 [facility] HEMATOLOGY Segs 72.1 45.0 - 75.0 02/01/2018 [facility] CHEM PANEL Magnesium Lvl 2.5 1.8 - 2.4 01/27/2018 [facility] CHEM PANEL Phosphorus 3.4 2.5 - 4.5 01/27/2018 [facility] CHEM PANEL Magnesium Lvl 1.5 1.8 - 2.4 01/26/2018 [facility] CHEM PANEL Phosphorus 2.1 2.5 - 4.5 01/26/2018 [facility] CHEM PANEL Magnesium Lvl 1.6 1.8 - 2.4 01/25/2018 [facility] LIPIDS Trig 361 <=149 mg/dL 01/25/2018 [facility] HEMATOLOGY Basophils # 0.1 0.0 - 0.2 01/24/2018 [facility] HEMATOLOGY Plt Morph Normal (01/23/18 6:15 AM) 01/23/2018 [facility] HEMATOLOGY RBC Morph Normal (01/23/18 6:15 AM) 01/23/2018 [facility] HEMATOLOGY INR 1.16 0.85 - 1.17 01/22/2018 [facility] HEMATOLOGY PT 14.6 12.0 - 14.7 01/22/2018 [facility] HEMATOLOGY PTT 29.1 22.9 - 35.8 01/22/2018 [facility] CHEM PANEL Lipase Lvl 345 73 - 393 01/22/2018 [facility] CHEM PANEL Alk Phos 79 39 - 136 01/22/2018 [facility] CHEM PANEL ALT 11 0 - 65 01/22/2018 [facility] CHEM PANEL Bili Total 0.6 0.2 - 1.3 01/22/2018 [facility] CHEM PANEL AST 13 0 - 37 01/22/2018 [facility] CHEM PANEL A/G Ratio 0.6 0.7 - 1.6 01/22/2018 [facility] CHEM PANEL B/C Ratio 17 6 - 25 01/22/2018 [facility] CHEM PANEL Albumin Lvl 2.7 3.5 - 5.0 01/22/2018 [facility] CHEM PANEL Total Protein 7.4 6.4 - 8.4 01/22/2018 [facility] CHEM PANEL Globulin 4.7 2.7 - 4.2 01/22/2018 [facility] URINE AND STOOL UA Nitrite Negative (01/21/18 3:14 PM) Negative 01/21/2018 [facility] URINE AND STOOL UA Urobilinogen <=1.0 mg/dL 0.1 - 1.0 01/21/2018 [facility] URINE AND STOOL UA Blood Small *ABN* (01/21/18 3:14 PM) Negative 01/21/2018 [facility] URINE AND STOOL UA Protein 100 mg/dL Negative mg/dL 01/21/2018 [facility] URINE AND STOOL UA Glucose 150 mg/dL Negative mg/dL 01/21/2018 [facility] URINE AND STOOL Micro? Performed (01/21/18 3:14 PM) 01/21/2018 [facility] URINE AND STOOL UA Leuk Est Large *ABN* (01/21/18 3:14 PM) Negative 01/21/2018 [facility] URINE AND STOOL UA Color Maggy 01/21/2018 [facility] URINE AND STOOL UA Bili Negative *NA* (01/21/18 3:14 PM) Negative 01/21/2018 [facility] URINE AND STOOL UA Ketones Trace *ABN* (01/21/18 3:14 PM) Negative 01/21/2018 [facility] URINE AND STOOL UA pH 5.0 5.0 - 8.0 01/21/2018 [facility] URINE AND STOOL UA Spec Grav 1.013 <=1.030 01/21/2018 [facility] URINE AND STOOL UA Turbidity Marked *ABN* (01/21/18 3:14 PM) Clear 01/21/2018 [facility] URINE AND STOOL UA Mucus Few /LPF None Seen /LPF 01/21/2018 [facility] URINE AND STOOL UA [place] Yeast Many /HPF None Seen /HPF 01/21/2018 [facility] URINE AND STOOL UA RBC 52 0 - 2 01/21/2018 [facility] URINE AND STOOL UA WBC >182 0 - 5 01/21/2018 [facility] URINE AND STOOL UA Sq Epi Occasional /LPF Few /LPF 01/21/2018 [facility] URINE CHEM U Creatinine 114.00 01/21/2018 [facility] URINE CHEM U Sodium 41 01/21/2018 [facility] CARDIAC ENZYMES BNP 53 <=100 pg/mL 01/21/2018 [facility] HEMATOLOGY INR 1.24 0.85 - 1.17 01/21/2018 [facility] HEMATOLOGY PT 15.4 12.0 - 14.7 01/21/2018 [facility] HEMATOLOGY PTT 35.1 22.9 - 35.8 01/21/2018 [facility] URINE AND STOOL UA RBC 4 0 - 2 01/21/2018 [facility] URINE AND STOOL UA Sq Epi Many [...] Slight *ABN* (01/21/18 6:50 AM) Clear 01/21/2018 [facility] URINE AND STOOL UA pH 6.5 5.0 - 8.0 01/21/2018 [facility] URINE AND STOOL UA Leuk Est Negative (01/21/18 6:50 AM) Negative 01/21/2018 [facility] URINE AND STOOL UA Nitrite Negative (01/21/18 6:50 AM) Negative 01/21/2018 [facility] URINE AND STOOL UA Bili Negative *NA* (01/21/18 6:50 AM) Negative 01/21/2018 [facility] URINE AND STOOL UA Blood Negative (01/21/18 6:50 AM) Negative 01/21/2018 [facility] URINE AND STOOL UA Urobilinogen 0.2 0.1 - 1.0 01/21/2018 Result Comment: Urobilinogen performed on the Clinitek analyzer. 01/21/2018 07:27 AGUILAR [facility] URINE AND STOOL UA Color Yellow *NA* (01/21/18 6:50 AM) Yellow 01/21/2018 [facility] CARDIAC ENZYMES Troponin-I <0.02 0.00 - 0.40 01/21/2018 [facility] CHEM PANEL Lipase Lvl 577 73 - 393 01/21/2018 [facility] CHEM PANEL Albumin Lvl 3.2 3.5 - 5.0 01/21/2018 [facility] CHEM PANEL Total Protein 8.7 6.4 - 8.4 01/21/2018 [facility] CHEM PANEL Alk Phos 104 39 - 136 01/21/2018 [facility] CHEM PANEL AST 14 0 - 37 01/21/2018 [facility] CHEM PANEL ALT 15 0 - 65 01/21/2018 [facility] CHEM PANEL Bili Total 0.4 0.2 - 1.3 01/21/2018 [facility] CHEM PANEL A/G Ratio 0.6 0.7 - 1.6 01/21/2018 [facility] CHEM PANEL Globulin 5.5 2.7 - 4.2 01/21/2018 [facility] CHEM PANEL B/C Ratio 14 6 - 25 01/21/2018 [facility] HEMATOLOGY Plt Morph Normal (01/21/18 6:39 AM) 01/21/2018 [facility] HEMATOLOGY RBC Morph Normal (01/21/18 6:39 AM) 01/21/2018 [facility] ELECTROLYTES Sodium Lvl 134 135 - 145 01/10/2018 [facility] ELECTROLYTES Potassium Lvl 4.3 3.5 - 5.1 01/10/2018 [facility] ELECTROLYTES Chloride Lvl 99 95 - 109 01/10/2018 [facility] ELECTROLYTES Creatinine Lvl 1.99 0.50 - 1.40 01/10/2018 [facility] ELECTROLYTES Glucose Lvl 126 70 - 99 01/10/2018 [facility] ELECTROLYTES BUN 51 7 - 22 01/10/2018 [facility] ELECTROLYTES eGFR 25 01/10/2018 Result Comment: The [...] should be multiplied by the estimated BMI. [facility] ELECTROLYTES CO2 25 24 - 32 01/10/2018 [facility] ELECTROLYTES AGAP 14.3 10.0 - 20.0 01/10/2018 [facility] ELECTROLYTES Calcium Lvl 9.0 8.5 - 10.5 01/10/2018 [facility] MPV 6.8 7.4 - 10.4 01/10/2018 [facility] Hgb 8.7 12.0 - 16.0 01/10/2018 [facility] Hct 26.8 36.0 - 48.0 01/10/2018 [facility] WBC 8.4 3.7 - 10.4 01/10/2018 [facility] Platelet 345 133 - 450 01/10/2018 [facility] RDW 17.9 11.5 - 14.5 01/10/2018 [facility] MCHC 32.5 32.0 - 36.0 01/10/2018 [facility] MCV 89.7 80.0 - 98.0 01/10/2018 [facility] MCH 29.1 27.0 - 31.0 01/10/2018 [facility] RBC 2.99 4.20 - 5.40 01/10/2018 [facility] CHEM PANEL eGFR 38 01/09/2018 Result Comment: [...] should be multiplied by the estimated BMI. [facility] CHEM PANEL Chloride Lvl 100 95 - 109 01/09/2018 [facility] CHEM PANEL Potassium Lvl 4.1 3.5 - 5.1 01/09/2018 [facility] CHEM PANEL AGAP 14.1 10.0 - 20.0 01/09/2018 [facility] CHEM PANEL CO2 26 24 - 32 01/09/2018 [facility] CHEM PANEL Calcium Lvl 8.4 8.5 - 10.5 01/09/2018 [facility] CHEM PANEL Glucose Lvl 191 70 - 99 01/09/2018 [facility] CHEM PANEL Sodium Lvl 136 135 - 145 01/09/2018 [facility] CHEM PANEL Creatinine Lvl 1.41 0.50 - 1.40 01/09/2018 [facility] CHEM PANEL BUN 47 7 - 22 01/09/2018 [facility] CHEM PANEL eGFR 39 01/08/2018 Result Comment: [...] should be multiplied by the estimated BMI. [facility] CHEM PANEL Calcium Lvl 8.1 8.5 - 10.5 01/08/2018 [facility] CHEM PANEL CO2 28 24 - 32 01/08/2018 [facility] CHEM PANEL Chloride Lvl 96 95 - 109 01/08/2018 [facility] CHEM PANEL Sodium Lvl 134 135 - 145 01/08/2018 [facility] CHEM PANEL Potassium Lvl 3.6 3.5 - 5.1 01/08/2018 [facility] CHEM PANEL BUN 57 7 - 22 01/08/2018 [facility] CHEM PANEL Creatinine Lvl 1.38 0.50 - 1.40 01/08/2018 [facility] CHEM PANEL Glucose Lvl 159 70 - 99 01/08/2018 [facility] CHEM PANEL AGAP 13.6 10.0 - 20.0 01/08/2018 [facility] CHEM PANEL Magnesium Lvl 1.9 1.8 - 2.4 01/08/2018 [facility] CHEM PANEL Phosphorus 4.0 2.5 - 4.5 01/08/2018 [facility] HEMATOLOGY Monocytes # 0.5 0.0 - 0.8 01/08/2018 [facility] HEMATOLOGY Neutrophils # 4.4 1.5 - 8.1 01/08/2018 [facility] HEMATOLOGY Eosinophils # 0.2 0.0 - 0.5 01/08/2018 [facility] HEMATOLOGY Lymphocytes # 2.3 1.0 - 5.5 01/08/2018 [facility] HEMATOLOGY Segs 58.4 45.0 - 75.0 01/08/2018 [facility] HEMATOLOGY Monocytes 6.9 2.0 - 12.0 01/08/2018 [facility] HEMATOLOGY Basophils 0.6 0.0 - 1.0 01/08/2018 [facility] HEMATOLOGY Lymphocytes 30.9 20.0 - 40.0 01/08/2018 [facility] HEMATOLOGY Eosinophils 3.2 0.0 - 4.0 01/08/2018 [facility] HEMATOLOGY Hgb 8.0 12.0 - 16.0 01/08/2018 [facility] HEMATOLOGY RBC 2.70 4.20 - 5.40 01/08/2018 [facility] HEMATOLOGY MCV 89.0 80.0 - 98.0 01/08/2018 [facility] HEMATOLOGY Hct 24.0 36.0 - 48.0 01/08/2018 [facility] HEMATOLOGY WBC 7.6 3.7 - 10.4 01/08/2018 [facility] MCH 29.6 27.0 - 31.0 01/08/2018 [facility] HEMATOLOGY RDW 18.0 11.5 - 14.5 01/08/2018 [facility] HEMATOLOGY MPV 7.4 7.4 - 10.4 01/08/2018 [facility] MCHC 33.2 32.0 - 36.0 01/08/2018 [facility] HEMATOLOGY Platelet 301 133 - 450 01/08/2018 [facility] CHEM PANEL Magnesium Lvl 2.2 1.8 - 2.4 01/07/2018 [facility] CHEM PANEL Phosphorus 5.6 2.5 - 4.5 01/07/2018 [facility] HEMATOLOGY Lymphocytes 26.3 20.0 - 40.0 01/07/2018 [facility] HEMATOLOGY Segs 62.3 45.0 - 75.0 01/07/2018 [facility] HEMATOLOGY Eosinophils 2.3 0.0 - 4.0 01/07/2018 [facility] HEMATOLOGY Monocytes 8.3 2.0 - 12.0 01/07/2018 [facility] HEMATOLOGY Basophils # 0.1 0.0 - 0.2 01/07/2018 [facility] HEMATOLOGY Neutrophils # 6.0 1.5 - 8.1 01/07/2018 [facility] HEMATOLOGY Eosinophils # 0.2 0.0 - 0.5 01/07/2018 [facility] HEMATOLOGY Lymphocytes # 2.5 1.0 - 5.5 01/07/2018 [facility] HEMATOLOGY Basophils 0.8 0.0 - 1.0 01/07/2018 [facility] HEMATOLOGY Monocytes # 0.8 0.0 - 0.8 01/07/2018 [facility] HEMATOLOGY RBC 2.77 4.20 - 5.40 01/07/2018 [facility] MCH 30.0 27.0 - 31.0 01/07/2018 [facility] HEMATOLOGY RDW 17.9 11.5 - 14.5 01/07/2018 [facility] HEMATOLOGY Platelet 285 133 - 450 01/07/2018 [facility] MCHC 33.8 32.0 - 36.0 01/07/2018 [facility] HEMATOLOGY MCV 88.8 80.0 - 98.0 01/07/2018 [facility] Hct 24.6 36.0 - 48.0 01/07/2018 [facility] Hgb 8.3 12.0 - 16.0 01/07/2018 [facility] MPV 6.7 7.4 - 10.4 01/07/2018 [facility] WBC 9.6 3.7 - 10.4 01/07/2018 [facility] CHEM PANEL Phosphorus 3.9 2.5 - 4.5 01/06/2018 [facility] CHEM PANEL Magnesium Lvl 2.0 1.8 - 2.4 01/06/2018 [facility] LIPIDS Trig 408 <=149 mg/dL 01/06/2018 [facility] Culture: Urine Specimen contains 3 or more potential pathogens; recommend correlation with urinalysis; if catheterized specimen recommend removal and recollection. If clinical situation warrants please call the laboratory for further testing. [place] Microbiology [phone]. 01/03/2018 [facility] URINE AND STOOL UA Glucose Negative *NA* (01/02/18 6:44 AM) Negative 01/02/2018 [facility] URINE AND STOOL UA pH 5.0 5.0 - 8.0 01/02/2018 [facility] URINE AND STOOL UA Spec Grav 1.014 <=1.030 01/02/2018 [facility] URINE AND STOOL UA Color Yellow *NA* (01/02/18 6:44 AM) Yellow 01/02/2018 [facility] URINE AND STOOL UA Turbidity Marked *ABN* (01/02/18 6:44 AM) Clear 01/02/2018 [facility] URINE AND STOOL UA Protein >=300 mg/dL Negative mg/dL 01/02/2018 [facility] URINE AND STOOL UA Ketones Negative *NA* (01/02/18 6:44 AM) Negative 01/02/2018 [facility] URINE AND STOOL UA Bili Negative *NA* (01/02/18 6:44 AM) Negative 01/02/2018 [facility] URINE AND STOOL UA Bacteria Occasional /HPF None Seen /HPF 01/02/2018 [facility] URINE AND STOOL UA Mucus Few /LPF None Seen /LPF 01/02/2018 [facility] URINE AND STOOL UA WBC >182 0 - 5 01/02/2018 [facility] URINE AND STOOL UA RBC 2 0 - 2 01/02/2018 [facility] URINE AND STOOL UA Urobilinogen <=1.0 mg/dL 0.1 - 1.0 01/02/2018 [facility] URINE AND STOOL UA Nitrite Negative (01/02/18 6:44 AM) Negative 01/02/2018 [facility] URINE AND STOOL UA Blood Small *ABN* (01/02/18 6:44 AM) Negative 01/02/2018 [facility] URINE AND STOOL UA Trans Epi 11 <=0 /LPF 01/02/2018 [facility] URINE AND STOOL UA Leuk Est Large *ABN* (01/02/18 6:44 AM) Negative 01/02/2018 [facility] URINE AND STOOL UA Sq Epi Occasional /LPF Few /LPF 01/02/2018 [facility] URINE CHEM U Sodium 16 01/02/2018 [facility] URINE CHEM U Creatinine 156.00 01/02/2018 [facility] CHEM PANEL Albumin Lvl 2.4 3.5 - 5.0 01/02/2018 [facility] CHEM PANEL Total Protein 6.8 6.4 - 8.4 01/02/2018 [facility] CHEM PANEL B/C Ratio 12 6 - 25 01/02/2018 [facility] CHEM PANEL ALT 12 0 - 65 01/02/2018 [facility] CHEM PANEL A/G Ratio 0.5 0.7 - 1.6 01/02/2018 [facility] CHEM PANEL Globulin 4.4 2.7 - 4.2 01/02/2018 [facility] CHEM PANEL Alk Phos 99 39 - 136 01/02/2018 [facility] CHEM PANEL AST 11 0 - 37 01/02/2018 [facility] CHEM PANEL Bili Total 0.3 0.2 - 1.3 01/02/2018 [facility] HEMATOLOGY Basophils 0.8 0.0 - 1.0 01/02/2018 [facility] HEMATOLOGY Eosinophils 1.2 0.0 - 4.0 01/02/2018 [facility] HEMATOLOGY Lymphocytes # 2.2 1.0 - 5.5 01/02/2018 [facility] HEMATOLOGY Neutrophils # 6.9 1.5 - 8.1 01/02/2018 [facility] HEMATOLOGY Monocytes # 0.6 0.0 - 0.8 01/02/2018 [facility] HEMATOLOGY Basophils # 0.1 0.0 - 0.2 01/02/2018 [facility] HEMATOLOGY Eosinophils # 0.1 0.0 - 0.5 01/02/2018 [facility] HEMATOLOGY Lymphocytes 22.4 20.0 - 40.0 01/02/2018 [facility] Monocytes 6.2 2.0 - 12.0 01/02/2018 [facility] HEMATOLOGY Segs 69.4 45.0 - 75.0 01/02/2018 [facility] IMMUNOLOGY Prealbumin 13.9 18.0 - 45.0 01/02/2018 [facility] LIPIDS Trig 446 <=149 mg/dL 01/02/2018 [facility] CHEM PANEL Albumin Lvl 2.7 3.5 - 5.0 01/01/2018 [facility] CHEM PANEL Total Protein 7.9 6.4 - 8.4 01/01/2018 [facility] CHEM PANEL Alk Phos 118 39 - 136 01/01/2018 [facility] CHEM PANEL Bili Total 0.2 0.2 - 1.3 01/01/2018 [facility] CHEM PANEL AST 17 0 - 37 01/01/2018 [facility] CHEM PANEL ALT 16 0 - 65 01/01/2018 [facility] CHEM PANEL B/C Ratio 12 6 - 25 01/01/2018 [facility] CHEM PANEL A/G Ratio 0.5 0.7 - 1.6 01/01/2018 [facility] CHEM PANEL Globulin 5.2 2.7 - 4.2 01/01/2018 [facility] IMMUNOLOGY Prealbumin 15.3 18.0 - 45.0 01/01/2018 [facility] Pathology Reports No Data Provided for This [...] Bilateral renal cortical atrophy. SL: BRANDI 02/25/2018 [facility] Abdomen/Pelvis wo IV contrast CT PROCEDURE: CT [...] renal cyst. END REPORT MADHAVI: [id number] 02/25/2018 [facility] Forearm 2 views DX Patient Name: JOSÉ MIGUEL MÉNDEZ : 1950; Age: 67 years y/o Female MR: [id number] * RIGHT FOREARM, 2 views History: Right forearm pain. Technique: Frontal and lateral radiographs of the right forearm were obtained. FINDINGS: There is no evidence of fracture, dislocation, or acute change. There are no destructive lesions or other osseous abnormalities. IMPRESSION: 1. Negative right forearm. SL: [id number] 02/08/2018 [facility] Ext Upper Venous Doppler Unilat US Clinical [...] the time of dictation. SL: ALBERTA 02/08/2018 [facility] Chest 1view DX Clinical Indication: - fever, tachycardia, chills. Comparison: 01/21/2018 Findings: Frontal view of the chest was obtained. Left internal jugular CVC tip projects over the superior cavoatrial junction. The cardiac silhouette is normal. Atheromatous changes are present in the aorta. There is no lobar consolidation, effusion or edema. No pneumothorax. No acute osseous abnormality. IMPRESSION: No acute cardiopulmonary abnormality. SL: [id number] 02/07/2018 [facility] CVC insert non-tunnel age 5+ yrs VR Patient Name: JOSÉ MIGUEL MÉNDEZ : 1950 Age: 67 years Female MR: [id number] Study: CVC insert non-tunnel age 5+ yrs VR 01/22/2018 11:22 SHIP WIRER Indication: Need for central venous access. Comparison: [...] catheter utilizing ultrasound and fluoroscopic guidance. SL: [id number] 01/22/2018 [facility] Retroperitoneal Complete US Patient Name: JOSÉ MIGUEL MÉNDEZ : 1950; Age: 67 years Female MR: [id number] Study: Retroperitoneal Complete US 01/21/2018 9:48 SHIP WIRER Clinical Indication: Renal insufficiency - magi/ckd. . [...] noted. IMPRESSION: 1. No acute abnormality. SL: [id number] 01/21/2018 [facility] Chest/Abdomen/Pelvis wo IV contrast CT Patient Name: JOSÉ MIGUEL MÉNDEZ : 1950 Age: 67 years, Female MR: [id number] Study: Chest/Abdomen/Pelvis wo IV contrast CT 01/21/2018 7:58 SHIP WIRER Examination: CT chest, abdomen, and pelvis without [...] T8, T12, and L5 vertebral bodies. SL: [id number] 01/21/2018 [facility] Chest 1view DX CHEST RADIOGRAPH SINGLE VIEW INDICATION: Shortness of breath, vomiting COMPARISON: Chest radiograph 08/24/2015 IMPRESSION: No consolidation or other acute intrathoracic abnormalities are visualized. SL:16 01/21/2018 [facility] CVC Replacement VR Patient Name: JOSÉ MIGUEL MÉNDEZ : 1950 Age: 67 years Female MR: [id number] Study: CVC Replacement VR 01/03/2018 3:03 PM SHIP WIRER Indication: Malfunctioning catheter. Comparison: None. Preoperative diagnosis: [...] a supine position on the fluoroscopy table. [employer] Fund Accountant film was obtained which demonstrated a left [...] catheter utilizing ultrasound and fluoroscopic guidance. SL: [id number] 01/03/2018 [facility] Retroperitoneal Complete US PROCEDURE: RENAL ULTRASOUND Clinical [...] renal cysts. Otherwise normal exam. [id number] 01/01/2018 [facility] Abdomen/Pelvis wo IV contrast CT PROCEDURE: CT [...] additional information. END REPORT SL: VITOR 01/01/2018 [facility] Chest 2 views DX EXAMINATION: Chest, 2 [...] Anemia, unspecified Comparison Exam: None Discussion: On program manager environmental planning view, there are no dilated loops of [...] Source Temperature Oral (F) 98.1 F 03/05/2018 [facility] Heart Rate 95 03/05/2018 [facility] Systolic (mm Hg) 107 03/05/2018 [facility] Diastolic (mm Hg) 57 03/05/2018 [facility] Temperature Oral (F) 98.0 F 03/05/2018 [facility] Systolic (mm Hg) 129 03/05/2018 [facility] Diastolic (mm Hg) 82 03/05/2018 [facility] Heart Rate 102 03/05/2018 [facility] Systolic (mm Hg) 122 03/05/2018 [facility] Diastolic (mm Hg) 78 03/05/2018 [facility] Respitory Rate 16 03/05/2018 [facility] Heart Rate 97 03/05/2018 [facility] Temperature Oral (F) 98.0 F 03/05/2018 [facility] Respitory Rate 16 03/05/2018 [facility] Respitory Rate 16 03/05/2018 [facility] Height 121.92 cm 02/26/2018 [facility] Weight 53.4 02/26/2018 [facility] BMI Calculated 35.92 02/26/2018 [facility] Weight 62.727 02/25/2018 [facility] BMI Calculated 25.29 02/25/2018 [facility] Height 157.48 cm 02/25/2018 [facility] Systolic (mm Hg) 145 02/13/2018 [facility] Diastolic (mm Hg) 67 02/13/2018 [facility] Temperature Oral (F) 98.5 F 02/13/2018 [facility] Heart Rate 111 02/13/2018 [facility] Temperature Oral (F) 98.7 F 02/13/2018 [facility] Heart Rate 106 02/13/2018 [facility] Systolic (mm Hg) 151 02/13/2018 [facility] Diastolic (mm Hg) 67 02/13/2018 [facility] Heart Rate 104 02/13/2018 [facility] Temperature Oral (F) 97.8 F 02/13/2018 [facility] Respitory Rate 20 02/13/2018 [facility] Systolic (mm Hg) 136 02/13/2018 [facility] Diastolic (mm Hg) 77 02/13/2018 [facility] Respitory Rate 18 02/13/2018 [facility] Respitory Rate 16 02/13/2018 [facility] Weight 59.091 01/21/2018 [facility] Weight 59.091 01/21/2018 [facility] BMI Calculated 27.23 01/21/2018 [facility] Height 147.32 cm 01/21/2018 [facility] Heart Rate 91 01/13/2018 [facility] Temperature Oral (F) 98.2 F 01/13/2018 [facility] Systolic (mm Hg) 114 01/13/2018 [facility] Diastolic (mm Hg) 73 01/13/2018 [facility] Systolic (mm Hg) 131 01/13/2018 [facility] Diastolic (mm Hg) 78 01/13/2018 [facility] Heart Rate 91 01/13/2018 [facility] Temperature Oral (F) 97.8 F 01/13/2018 [facility] Systolic (mm Hg) 124 01/13/2018 [facility] Diastolic (mm Hg) 78 01/13/2018 [facility] Respitory Rate 18 01/13/2018 [facility] Heart Rate 87 01/13/2018 [facility] Temperature Oral (F) 97.9 F 01/13/2018 [facility] Respitory Rate 18 01/13/2018 [facility] Respitory Rate 20 01/13/2018 [facility] Height 147.32 cm 01/01/2018 [facility] BMI Calculated 28.06 01/01/2018 [facility] Weight 60.909 01/01/2018 [facility] BMI Calculated 28.06 01/01/2018 [facility] Weight 60.909 01/01/2018 [facility] Height 147.32 cm 01/01/2018 [facility] Height 147.32 cm 01/01/2018 [facility] BMI Calculated 28.06 01/01/2018 [facility] Weight 60.909 01/01/2018 [facility] Encounters Location Location Details Encounter Type Encounter Number Reason For Visit Attending Provider ADM Date DC Date Status Source [facility] [id number] Jarrell Gaytan 04/13/2015 04/14/2015 [facility] [id number] [facility] [place] 08/24/2015 08/25/2015 [facility] [id number]2018 [id number] Procedures Procedure Code Date Perfomer Comments Source Colectomy [id number] [facility] Hemorrhoidectomy [id number] [facility] Knee joint operation [id number] [facility] Ostomy care management [id number] [facility] Wrist repair [id number] [facility] Assessment and Plan Assessment and Plan Date Source Extracted from:Title: Clinical Document Author: Celeste Samuels MD Date: 03/05/18 Progress Daily [facility] Completed: Feb, 17:44 by Celeste Samuels MD [...] on and off leakage from the fistula manager zone. Apparently she is accepted to a skilled [...] connected to the suction tube draining profusely ORGANIZATIONAL DEVELOPMENT CONSULTANT AAox3 NO FND Skin no wounds seen [...] an outpatient to and discussed with the community case manager patient needs a fistula manager zone and suction at the skilled facility to [...] Meals 02/25/18 enoxaparin (Lovenox) 30 mg [id number] 03/02/18 metoprolol (metoprolol extended release) 25 mg [...] (SEROquel) 25 mg PO BID 02/25/18 acetaminophen-hydrocodone ([place] 5/325 oral tablet) 1 tab PO Q6H 02/25/18 acetaminophen 650 mg PO Q6H 02/25/18 bisacodyl 10 mg [place] Daily 02/25/18 diphenhydrAMINE 25 mg PO Q6H [...] MD Date: 03/05/18 Discharge Information Disposition to long term facility Condition stable Medications: See med reconciliation [...] underwent a colectomy with ileostomy placement at [facility] in September as per her she had [...] as we do not have any wound manager zone in the wound clinic and she was supposed to get a wound manager zone from the [facility] and follow-up in the wound clinic REVIEW [...] midline. Fistula area secondary to stool irritation ORGANIZATIONAL DEVELOPMENT CONSULTANT AAox3 NO FND Skin no wounds seen [...] eval Lovenox for DVT prophylaxis Case management: shelter facility placement Disposition: Inpatient DC planning: Patient will be discharged to long term facility placement. 03/06/2018 [facility] Extracted from:Title: Discharge Summary * Author: Joshua Healy MD Date: 02/13/18 Discharge Information depo: home condition: stable reg diet Extracted from:Title: Clinical Document Author: John Oreilly MD Date: 02/13/18 Progress Note - Daily [facility] Completed: Feb, 16:13 by John Oreilly MD [...] Tot [phone] 02/12 24hr Tot [phone] Medications (32) Active Scheduled Meds (12): [...] LORazepam 0.5 mg PO BID 01/21/18 acetaminophen-hydrocodone ([place] 5/325 oral tablet) 1 tab PO Q6H [...] I have examined the patient with the PA/MARKET RESEARCH INTERVIEWER and confirmed the integral components of the history, physical examination, diagnosis and treatment plan. I agree with the note and management decisions as documented by the MARKET RESEARCH INTERVIEWER/PA, and amended as needed in the text [...] [place] Extracted from:Title: Discharge Summary * Author: oJshua Healy MD Date: 01/13/18 Discharge Information Disposition [...] moderate to severe pain. Will continue PO [place] 10/325mg every 6 hours as needed for mild to moderate pain. Discussed proper medication usage with the patient today. We left a prescription on her chart for [place] 10/325mg, #20, CTRL [id number] for upon discharge. We will continue to [...] BID 01/04/18 enoxaparin (Lovenox) 30 mg SUB-Q [id number] 01/04/18 octreotide 50 microgram SUB-Q TID 01/04/18 pantoprazole 40 mg IVP Q12H 01/04/18 sertraline 100 mg PO Daily PRN Meds (16): 01/02/18 Dextrose 50% in Water IV (Dextrose 50% Syringe) 12.5 gm IVP PRN 01/02/18 Dextrose 50% in Water IV (Dextrose 50% Syringe) 25 gm IVP PRN 01/04/18 LORazepam (Ativan) 0.5 mg PO TID 01/01/18 acetaminophen-hydrocodone ([place] 10/325 oral tablet) 1 tab PO Q6H [...] 01/06/2018 07:00 Surgical Drains: Other: midline fistula manager zone [facility] 01/01/2018 07:50 GI Ostomy: Ileostomy Established [...] underwent a colectomy with ileostomy placement at [facility] in September as per her she had [...] by the wound care nurse and wound manager zone was placed today and she has almost [...] Ibuprofen. Motrin. Physical examination: Vital signs T98.4 OH 86 BP 03/10/1967 RR 16 HEENT ROSANGELA Neck supple RS Equal AE b/l no added sounds CVS S1S2 normal no murmur P/A soft patient has a wound manager zone in the midline having profuse feculent drainage She has a ileostomy could not see the wound as patient has a wound manager zone [employer]GAN[employer]ATIONAL DEVELOPMENT CONSULTANT AAox3 NO FND Skin intact Ext no [...] can when we reevaluate without a wound manager zone and as per the patient and wound [...]
--- NOTE | 2018-10-20 15:43 | Diagnostic Imaging Report ---
EXAMINATION: CHEST SINGLE (PORTABLE) INDICATION: Abdominal pain, nausea vomiting COMPARISON: Chest radiograph of 06/13/2018 FINDINGS: LINES/TUBES:Left chest port with catheter tip terminating in the superior vena cava. EKG leads overlie the chest. LUNGS:The lungs are well-inflated. No focal consolidation or pulmonary edema. PLEURA:No pleural effusion or pneumothorax. MEDIASTINUM:The cardiomediastinal silhouette appears normal in size and shape. Atherosclerotic calcifications of the thoracic aorta. BONES/SOFT TISSUES:No acute osseous injury. ABDOMEN:No free air under the diaphragm. IMPRESSION: No focal pneumonia or pulmonary edema. Interval placement of left chest port with catheter tip terminating in the superior vena cava. Signed by: Melanie Fischer MD on 10/20/2018 3:39 PM
[2018-10-20 16:00] LABS: BASOPHILS # (AUTO) 0.1 (0.0-0.1); BASOPHILS % 0.6 % (0.0-1.0); EOSINOPHILS # (AUTO) 0.1 (0.0-0.4); HEMATOCRIT 35.8 % (34.2-44.1); HEMOGLOBIN 12.4 g/dL (12.0-16.0); LYMPHOCYTES # (AUTO) 2.6 (1.0-3.2); MEAN CORPUSCULAR HEMOGLOBIN 32.5 pg (28-32); MEAN CORPUSCULAR HGB CONC 34.6 g/dL (31-35); MONOCYTES # (AUTO) 0.6 (0.2-0.8); MONOCYTES % 4.8 % (4.4-11.3); NEUTROPHILS # (AUTO) 8.9 (2.1-6.9); NEUTROPHILS % 71.9 % (38.7-80.0); PLATELET COUNT 305 x10e3/uL (140-360); RED BLOOD COUNT 3.81 x10e6/uL (3.6-5.1); RED CELL DISTRIBUTION WIDTH 14.7 % (11.7-14.4)
[2018-10-20 16:12] LABS: INR 1.02; PARTIAL THROMBOPLASTIN TIME 28.7 seconds (23.8-35.5); PROTHROMBIN TIME 13.9 seconds (11.9-14.5)
[2018-10-20] MEDS ORDERED: CEFTRIAXONE SOD 1 GM/NS 50 ML 50 ML IV ONE (16:15)
[2018-10-20 16:20] LABS: ALBUMIN 4.1 g/dL (3.5-5.0); ALBUMIN/GLOBULIN RATIO 0.8 (0.8-2.0); ANION GAP 30.6 mmol/L (8-16); CREATININE, SERUM 7.28 mg/dL (0.57-1.11)
[2018-10-20 16:23] LABS: MAGNESIUM 0.9 MG/DL (1.3-2.1); POTASSIUM 6.6 mmol/L (3.5-5.1)
[2018-10-20] MEDS ORDERED: ALBUTEROL SULF 0.083% NEB SOLN 3 ML NEB NEB STA (16:33)
[2018-10-20] MEDS ORDERED: SODIUM BICARBONATE 8.4% 50 ML VIAL IV STA (16:33)
[2018-10-20] MEDS ORDERED: DEXTROSE 50% SYRINGE 50 ML IV STA (16:33)
[2018-10-20 16:40] LABS: CREATINE KINASE MB 3.3 ng/mL (0-5.0); THYROID STIMULATING HORMONE 0.727 uIU/mL (0.350-4.940)
[2018-10-20] MEDS: CEFTRIAXONE SOD 1 GM/NS 50 ML 50 ML IV SCH (16:41)
[2018-10-20] MEDS: SODIUM CHLORIDE 0.9% 1000ML 1,000 ML IV SCH (16:41)
[2018-10-20] MEDS ORDERED: IPRATROPIUM BROMIDE 0.02% 2.5 ML NEB NEB ONE (16:45)
[2018-10-20] MEDS ORDERED: INSULIN REGULAR, HUMAN 100 UNIT/1 ML 3ML VIAL IV ONE (16:45)
[2018-10-20] MEDS ORDERED: CALCIUM GLUCONATE 10% INJ 4.65 MEQ in SODIUM CHLORIDE 0.9% 50ML 50 ML IV ONE (16:45)
[2018-10-20] MEDS ORDERED: SOD POLYSTYRENE SULFONATE SUSP 15 GM/60 ML BTL PO ONE (16:45)
[2018-10-20] MEDS ORDERED: SODIUM BICARBONATE 8.4% INJ 50 ML SYR IV ONE (17:00)
[2018-10-20] MEDS ORDERED: MAGNESIUM SULFATE 2GM/50ML 50 ML IV ONE ×2 (17:00→17:45)
--- NOTE | 2018-10-20 17:24 | NUR ---
DR Rizwan THOMAS AT PT BEDSIDE
--- NOTE | 2018-10-20 18:14 | NUR ---
[facility] AT [facility] [phone] CALLED FOR DIALYSIS STAT PER DR Denny THOMAS
[2018-10-20] MEDS ORDERED: SODIUM CHLORIDE 0.9% 1000ML 2,000 ML ONE ×2 (19:15→20:14)
[2018-10-20] MEDS ORDERED: SODIUM CHLORIDE 0.9% 1000ML 1,000 ML IV ONE (19:30)
[2018-10-20] MEDS ORDERED: SODIUM CHLORIDE 0.9% 1000ML 2,000 ML IV SCH (19:30)
--- NOTE | 2018-10-20 19:37 | Diagnostic Imaging Report ---
EXAMINATION: CHEST XRAY LINE PLACEMENT INDICATION: ^[id number] ^1830 COMPARISON: Chest radiograph 10/20/2018 FINDINGS: AP view TUBES and LINES: Left-sided chest port with tip overlying the cavoatrial junction, which appears advanced when compared to prior exam. Interval placement of a left IJ central venous catheter with tip overlying the cavoatrial junction. PEG tube overlying the left upper quadrant. LUNGS: Lungs are well inflated. Lungs are clear. There is no evidence of pneumonia or pulmonary edema. PLEURA: No pleural effusion or pneumothorax. HEART AND MEDIASTINUM: The cardiomediastinal silhouette is unremarkable. Unchanged mild calcifications of the aortic arch. BONES AND SOFT TISSUES: No acute osseous lesion. Soft tissues are unremarkable. UPPER ABDOMEN: No free air under the diaphragm. IMPRESSION: New left IJ central venous catheter with tip overlying the cavoatrial junction. No pneumothorax. Signed by: Dr. Leana Glasgow M.D. on 10/20/2018 7:34 PM
[2018-10-20] MEDS ORDERED: SODIUM CHLORIDE 0.9% 1000ML 2,000 ML IV ONE (19:45)
--- NOTE | 2018-10-20 19:50 | NUR ---
PER ER - DR COHN - DIALYSIS CATHETER OKAY TO USE; CHEST X RAY VERIFIED BY SHARIF BURGER
[2018-10-20] MEDS ORDERED: MANNITOL 25% 12.5GM/50ML 100 ML ONE (20:28)
[2018-10-20] MEDS: ONDANSETRON HCL INJ 2MG/ML 2ML 2 MG/ML VIAL IV PRN (20:40)
--- NOTE | 2018-10-20 20:45 | Diagnostic Imaging Report ---
EXAM: CT Abdomen and Pelvis WITHOUT contrast INDICATION: ^abd pain , vomit ^[id number] ^1928 ^Y COMPARISON: None. TECHNIQUE: Abdomen and pelvis were scanned utilizing a multidetector helical scanner from the lung base to the pubic symphysis without administration of IV contrast. Absence of intravenous contrast decreases sensitivity for detection of focal lesions and vascular pathology. Coronal and sagittal reformations were obtained. Routine protocol was performed. IV CONTRAST: None. ORAL CONTRAST: Water RADIATION DOSE: Total DLP: 196 mGy*cm Estimated effective dose: (DLP x 0.015 x size factor) mSv COMPLICATIONS: None FINDINGS: LINES and TUBES: Clark catheter in the urinary bladder with associated distention of the urinary bladder and air-fluid levels. Next to within the stomach. LOWER THORAX: Mild reticulonodular scarring in the right lower lobe. HEPATOBILIARY: No focal hepatic lesions. No biliary ductal dilation. GALLBLADDER: Cholecystectomy. SPLEEN: No splenomegaly. PANCREAS: No focal masses or ductal dilatation. ADRENALS: No adrenal nodules KIDNEYS/URETERS: No hydronephrosis. No cystic or solid mass lesions. No stones. GI TRACT: Diffuse wall thickening of the stoma, duodenum, and few loops of jejunum with associated mild distention, measuring up to 3.9 cm. No transition point. The colon is decompressed. Right lower quadrant colostomy without fluid collections or bowel dilatation. PELVIC ORGANS/BLADDER: Unremarkable. LYMPH NODES: No lymphadenopathy. VESSELS: Diffuse atherosclerotic calcifications of the abdominal aorta and pelvic arteries without aneurysm. PERITONEUM / RETROPERITONEUM: No free air or fluid. BONES: Unremarkable. SOFT TISSUES: Unremarkable. IMPRESSION: Diffuse wall thickening of the stomach, duodenum, and small bowel are suggestive of gastroenteritis. Signed by: Dr. Leana Glasgow M.D. on 10/20/2018 8:42 PM
[2018-10-20] MEDS ORDERED: HEPARIN SOD (PORCINE) 1000 UNIT/ML SDV ONE (22:45)
--- NOTE | 2018-10-20 23:20 | NUR ---
PT'S COLOSTOMY BAG EMPTIED
[2018-10-21] VITALS (17 sets, daily range): BP systolic 99–169; BP diastolic 48–74
[2018-10-21] MEDS: HYDROMORPHONE 1MG/1ML INJ IV PRN ×5 (00:30→21:50)
[2018-10-21] MEDS: ONDANSETRON HCL INJ 2MG/ML 2ML 2 MG/ML VIAL IV PRN ×2 (00:30→22:19)
--- NOTE | 2018-10-21 01:36 | Consultation ---
DATE OF CONSULTATION: Seen in the emergency room. REASON FOR CONSULTATION: Acute kidney injury, life-threatening hyperkalemia. The patient known to me. HISTORY OF PRESENT ILLNESS: She is a 68-year-old female, who has had history of recurrent nausea, vomiting, dehydration, acute kidney injuries, prior history of ATN requiring dialysis, has come off dialysis, was recently at [facility] and discharged. Has had multiple surgeries between Dr. Ram and Dr. Vences. 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 Now she is off, developed 3-day worth of intractable nausea and vomiting. No hematemesis associated with some diarrhea. Denied any fever and chills or any abdominal pain, presented to the hospital. Appears extremely dehydrated. Awake, alert, and oriented x3, though with laboratory test shows white count 12.4, hemoglobin 12.4, sodium 129, potassium 6.6, bicarbonate 19, BUN 106, creatinine 7.28, magnesium 0.9, blood sugar 162. She does not have a Clark catheter. She does not remember when the last time she urinated. Urinalysis shows pH 5, specific gravity 1.020 with rbc 0-5 and wbc 11-20. ALLERGIES: IBUPROFEN. HOME MEDICATIONS: Not reconciled yet. SOCIAL HISTORY: She is . Does not smoke or drink. She is currently receiving emergent treatment for hyperkalemia. She has already received a liter of normal saline bolus. PHYSICAL EXAMINATION: GENERAL: Awake, alert, and oriented x3. Short statured female, very poor muscle mass with extremely dry skin, dry mucosa with a blood pressure 159/88, pulse rate 133, afebrile, oxygen saturation 98% on room air. HEAD AND NECK: Cornea clear. Mucosa dry. Neck veins flat. LUNGS: Relatively clear. No rales. HEART: S1, S2 audible. ABDOMEN: Soft. Ileostomy noted with dressing noted middle of abdomen not removed. EXTREMITIES: Lower extremity, no edema. SKIN: Very poor turgor. The patient has a Port-A-Cath on the left side of the chest. IMPRESSION AND PLAN: Severe dehydration, acute tubular necrosis, hyperkalemia, metabolic acidosis, hypomagnesemia. Plan to agree with emergent management of hyperkalemia. Awaiting IR to put a dialysis catheter, they have been placed stat for a dialysis catheter. Thereafter, the patient will need emergent dialysis. We will give two more liters of normal saline bolus and continue thereafter at 125 mL an hour. Clark catheter to be placed. MD LIZZETH Garcia/GABI /[id number]
[2018-10-21] MEDS: SODIUM CHLORIDE 0.9% 1000ML 1,000 ML IV SCH ×4 (01:46→22:19)
--- NOTE | 2018-10-21 02:38 | NUR ---
Paged Dr. Lou ([phone]) for pt BS of 35, left message, awaiting call back. Pt states she feels "okay" at this time, now sleeping.
[2018-10-21] MEDS ORDERED: DEXTROSE 50% SYRINGE 50 ML IV STA (03:09)
[2018-10-21 06:20] LABS: BASOPHILS % 0.4 % (0.0-1.0); EOSINOPHILS # (AUTO) 0.2 (0.0-0.4); EOSINOPHILS % 2.1 % (0.0-6.0); HEMATOCRIT 23.7 % (34.2-44.1); LYMPHOCYTES # (AUTO) 1.5 (1.0-3.2); LYMPHOCYTES % 15.8 % (18.0-39.1); MEAN CORPUSCULAR HEMOGLOBIN 32.4 pg (28-32); MEAN CORPUSCULAR HGB CONC 33.8 g/dL (31-35); MONOCYTES # (AUTO) 0.7 (0.2-0.8); NEUTROPHILS # (AUTO) 7.2 (2.1-6.9); NEUTROPHILS % 74.2 % (38.7-80.0); PLATELET COUNT 189 x10e3/uL (140-360); RED BLOOD COUNT 2.47 x10e6/uL (3.6-5.1); RED CELL DISTRIBUTION WIDTH 14.7 % (11.7-14.4)
[2018-10-21 06:46] LABS: ALBUMIN 2.7 g/dL (3.5-5.0); ALBUMIN/GLOBULIN RATIO 0.8 (0.8-2.0); ANION GAP 13.4 mmol/L (8-16); CREATININE, SERUM 2.71 mg/dL (0.57-1.11); POTASSIUM 3.4 mmol/L (3.5-5.1)
[2018-10-21 07:34] LABS: CREATINE KINASE MB 2.7 ng/mL (0-5.0)
--- NOTE | 2018-10-21 12:15 | NUR ---
ASSESSMENT: Spiritual concern Pt thankful for clxipevy-vj-rrl's support. Pt states her late son's lives with her and her and appreciated her support. Pt states her is recovering from recent back surgery. Intervention: Provided hospitality and empathic listening. Provided information on how to reach tree girdler, if needed. Outcome: Pt expressed appreciation for visit. FAUSTO SKY Professor Computer Science Spiritual Care Department O: [phone] Pager: [phone] ([phone] number calling from)
[2018-10-21 15:49] LABS: CREATINE KINASE MB 2.7 ng/mL (0-5.0)
[2018-10-21] MEDS ORDERED: NON-FORMULARY MEDICATION (Cholecalciferol (Vitamin D3) (Vitamin D3) 5,000 UNITS) PO SCH (16:15)
[2018-10-21] MEDS ORDERED: ONDANSETRON HCL INJ 2MG/ML 2ML 2 MG/ML VIAL IV PRN (16:15)
[2018-10-21] MEDS ORDERED: HYDROCODONE/APAP 10MG-325MG TAB PO PRN (16:15)
[2018-10-21] MEDS ORDERED: HYDRALAZINE HCL 20 MG/ML VIAL IV PRN (16:15)
[2018-10-21] MEDS: CEFTRIAXONE SOD 1 GM/NS 50 ML 50 ML IV SCH (20:01)
[2018-10-21] MEDS ORDERED: MELATONIN 5 MG TABLET PO PRN (21:00)
[2018-10-21] MEDS: MIRTAZAPINE 15 MG TAB PO SCH (21:45)
[2018-10-21] MEDS: ATORVASTATIN 40 MG TAB PO SCH (21:45)
[2018-10-22] VITALS (22 sets, daily range): BP systolic 121–182; BP diastolic 58–92
[2018-10-22] MEDS: HYDROMORPHONE 1MG/1ML INJ IV PRN ×4 (05:13→20:03)
[2018-10-22] MEDS: ONDANSETRON HCL INJ 2MG/ML 2ML 2 MG/ML VIAL IV PRN (05:13)
[2018-10-22] MEDS: SODIUM CHLORIDE 0.9% 1000ML 1,000 ML IV SCH ×3 (06:05→20:03)
[2018-10-22] MEDS: FOLIC ACID/CYANOCOB/PYRIDOXINE TAB PO SCH (08:00)
[2018-10-22] MEDS: ASPIRIN 81 MG CHEW TAB PO SCH (08:00)
[2018-10-22] MEDS: PANTOPRAZOLE SOD 40 MG TABEC PO SCH (08:00)
[2018-10-22] MEDS: CHOLECALCIFEROL 1,000 UNIT TAB PO SCH (08:00)
--- NOTE | 2018-10-22 08:39 | Diagnostic Imaging Report ---
ADDENDUM #1 PROCEDURE: Non-tunneled central venous catheter placement Procedural Personnel Attending physician(s): Melanie Fischer MD Fellow physician(s): None Resident physician(s): None Advanced practice provider(s): None Pre-procedure diagnosis: Acute kidney injury Post-procedure diagnosis: Same Indication: Performance of hemodialysis Additional clinical history: None Complications: No immediate complications. IMPRESSION: Ultrasound guided insertion of left-sided non-tunneled triple-lumen Trialysis catheter. Plan: Immediate post-procedural radiograph to confirm positioning prior to use. PROCEDURE SUMMARY: - Venous access with ultrasound guidance - Non-tunneled central venous catheter insertion with fluoroscopic guidance - Additional procedure(s): None PROCEDURE DETAILS: Pre-procedure Consent: Informed consent for the procedure including risks, benefits and alternatives was obtained and time-out was performed prior to the procedure. Preparation (MIPS): The site was prepared and draped using all elements of maximal sterile barrier technique including sterile gloves, sterile gown, cap, mask, large sterile sheet, sterile ultrasound probe cover, hand hygiene and cutaneous antisepsis with 2% chlorhexidine. Medical reason for site preparation exception (MIPS): Not applicable Anesthesia/sedation Level of anesthesia/sedation: No sedation Anesthesia/sedation administered by: Independent trained observer under attending supervision with continuous monitoring of the patient?s level of consciousness and physiologic status Access Local anesthesia was administered. The vessel was sonographically evaluated and determined to be patent. Real time ultrasound was used to visualize needle entry into the vessel and a permanent image was stored. Vein accessed: Internal jugular vein Access technique: Micropuncture set with 21 gauge needle Catheter placement The access site was dilated and the catheter was placed into the vein over a wire under fluoroscopic guidance. The catheter tip location was fluoroscopically verified and a permanent image was stored.. A sterile dressing was applied. Catheter placed: Bard trialysis Catheter size (Albanian): 13 Catheter length (cm): 15 Catheter flush: Normal saline Catheter securement technique: Non-absorbable suture Contrast Contrast agent: None Radiation Dose None Additional Details Additional description of procedure: None Equipment details: None Specimens removed: None Estimated blood loss (mL): Less than 10 Standardized report: [email or web address] Attestation Signer name: Melanie Fischer MD I attest that I was present for the entire procedure. I reviewed the stored images and agree with the report as written. Signed by: Melanie Fischer MD on 11/03/2018 4:42 PM ORIGINAL REPORT PROCEDURE: Non-tunneled central venous catheter placement Procedural Personnel Attending physician(s): Melanie Fischer MD Fellow physician(s): None Resident physician(s): None Advanced practice provider(s): None Pre-procedure diagnosis: Acute kidney injury Post-procedure diagnosis: Same Indication: Performance of hemodialysis Additional clinical history: None Complications: No immediate complications. IMPRESSION: Insertion of left-sided non-tunneled triple-lumen Trialysis catheter, with tip in the expected location of the cavoatrial junction. Plan: Immediate post-procedural radiograph to confirm positioning prior to use. PROCEDURE SUMMARY: - Venous access with ultrasound guidance - Non-tunneled central venous catheter insertion with fluoroscopic guidance - Additional procedure(s): None PROCEDURE DETAILS: Pre-procedure Consent: Informed consent for the procedure including risks, benefits and alternatives was obtained and time-out was performed prior to the procedure. Preparation (MIPS): The site was prepared and draped using all elements of maximal sterile barrier technique including sterile gloves, sterile gown, cap, mask, large sterile sheet, sterile ultrasound probe cover, hand hygiene and cutaneous antisepsis with 2% chlorhexidine. Medical reason for site preparation exception (MIPS): Not applicable Anesthesia/sedation Level of anesthesia/sedation: No sedation Anesthesia/sedation administered by: Independent trained observer under attending supervision with continuous monitoring of the patient?s level of consciousness and physiologic status Access Local anesthesia was administered. The vessel was sonographically evaluated and determined to be patent. Real time ultrasound was used to visualize needle entry into the vessel and a permanent image was stored. Vein accessed: Internal jugular vein Access technique: Micropuncture set with 21 gauge needle Catheter placement The access site was dilated and the catheter was placed into the vein over a wire under fluoroscopic guidance. The catheter tip location was fluoroscopically verified and a permanent image was stored.. A sterile dressing was applied. Catheter placed: Bard trialysis Catheter size (Albanian): 13 Catheter length (cm): 15 Catheter flush: Normal saline Catheter securement technique: Non-absorbable suture Contrast Contrast agent: None Radiation Dose None Additional Details Additional description of procedure: None Equipment details: None Specimens removed: None Estimated blood loss (mL): Less than 10 Standardized report: [email or web address] Attestation Signer name: Melanie Fischer MD I attest that I was present for the entire procedure. I reviewed the stored images and agree with the report as written. Signed by: Melanie Fischer MD on 10/22/2018 8:36 AM
[2018-10-22] MEDS ORDERED: CLONIDINE HCL 0.3MG/24 HR PATCH TD SCH (10:00)
[2018-10-22] MEDS ORDERED: LEVOFLOXACIN 750MG/D5W 150ML 150 ML IV SCH (10:00)
[2018-10-22] MEDS ORDERED: LEVOFLOXACIN 250MG/D5W 50ML 50 ML IV SCH (10:00)
[2018-10-22] MEDS ORDERED: LEVOFLOXACIN 750MG/D5W 150ML 150 ML IV ONE (10:30)
--- NOTE | 2018-10-22 12:20 | NUR ---
WOUND CARE NURSE CONSULTATION. 68 YEAR OLD FEMALE ADMITTED TO [facility] WITH DX OF DEHYDRATION, VOMITING AND WEAKNESS. HEAD TO TOE SKIN ASSESSMENT PERFORMED TODAY. PT PRESENTS WITH A PAST HEALED SURGICAL INCISION TO ABDOMEN THAT IS NOW OPEN AND DENUDED DUE TO A LEAK FROM COLOSTOMY BAG. 100% GRANULAR. NO S/S OF INFECTION. PEG TUBE IS PRESENT AND RLQ COLOSTOMY. PT ALSO PRESENTS WITH BLANCHABLE REDNESS TO SACRUM. THERE ARE NO OTHER AREAS OF CONCERN NOTED AT THIS TIME. PT AND AT BEDSIDE EDUCATED ON COLOSTOMY CARE AND WAYS TO PREVENT LEAKAGE. LABS: WBC: 9.70 GLUCOSE: 98 ALB: 2.7 BLOOD CX RESULTS PENDING. RECOMMENDATIONS: CLEAN ABDOMEN WITH NS, APPLY PURACOL AG AND COVER WITH FOAM DRESSING. CONTINUE WITH ALLEVYN FOAM TO SACRUM DAILY AND MONITOR FOR AREAS OF PRESSURE. CONTINUE WITH ALTERNATING LOW AIR LOSS MATTRESS. PROVIDE PT WITH BILATERAL HEEL PROTECTORS AND PILLOW SUSPENSIONS. TURN PT EVERY TWO HOURS AND PRN. THANKS FOR THIS CONSULTATION. Addendum: 10/22/18 at 1229 by Michelle Lou RN Amended: Links added.
[2018-10-22 16:01] LABS: ANION GAP 13.1 mmol/L (8-16); CALCIUM 7.9 mg/dL (8.4-10.2); CREATININE, SERUM 2.74 mg/dL (0.57-1.11); POTASSIUM 3.1 mmol/L (3.5-5.1)
[2018-10-22] MEDS: METOPROLOL TARTRATE 50 MG TAB PO SCH (16:15)
[2018-10-22] MEDS: NIFEDIPINE CR 30 MG TAB PO SCH (16:16)
[2018-10-22] MEDS ORDERED: POTASSIUM CHLORIDE 20MEQ/100ML 200 ML IV ONE ×2 (16:30→20:15)
[2018-10-22] MEDS ORDERED: MAGNESIUM SULFATE 2GM/50ML 50 ML IV ONE (16:30)
[2018-10-22] MEDS ORDERED: MAGNESIUM SULF 1GRAM/DEXTROSE 100 ML IV ONE ×2 (16:30→18:22)
--- NOTE | 2018-10-22 16:31 | NUR ---
RN notified ESBL growing in urine. Dr. Crawford notified, IV antibiotics changed. PT came and assessed patient. cd manufacturing supervisor came to evaluate pt. Dr. Escalante orders labs during rounding, was notified of mag 0.8 along with the rest of BMP results. Orders given for magnesium and potassium replacement IV. Dr. Escalante ordered consult for Dr. Jace Weller and Dr. Victoria. Per Dr. Crawford infectious disease consult not necessary as antibiotics have already been changed. Dr. Amauri Weller notified of consult for chronic n/v. Dr. Crawford ordered evaluation for SNF and progress diet to mechanical soft.
--- NOTE | 2018-10-22 16:38 | NUR ---
Nutrition Screen Note RD Recommendation for Physician: -Rec Renal/GI soft diet as medically appropriate -If PO <50%, rec Nepro BID to increase protein-calorie intake Plan of Care: RD following, monitoring for tolerance and adequacy Nutrition reason for involvement: Nutrition Risk Trigger MST Primary Diagnose(s): dehydration, vomiting, weakness PMH: recurrent nausea and vomiting, dehydration, MAGI requiring dialysis Ht: 59in Wt: 109.38lb BMI: 22.1kg/m2 IBW: 98lb +/- 10% RD Assessment: (10/22) Chart reviewed. Labs and meds reviewed. 68yo F, who was admitted for 3 days worth of intractable nausea and vomiting. CT abd/pel suggested gastroenteritis. +colostomy with 1L output today, per RN. +ESBL in urine. Pt was sleeping during my visit. Per RN, diet has been advanced to renal/ mechanical soft. Per RN, pt had no complain of nausea or vomiting today while on clear liquid. Pt was eager to eat. Will continue to monitor and follow. Current Diet: renal/ mechanical soft Malnutrition Evaluation (10/22/2018) The patient does not meet criteria for a specified degree of malnutrition at this time. Will re-evaluate at follow-up as appropriate. Diet Education Needs Assessment: Diet education not indicated. Nutrition Care Level: low Signed: Janice Alex, MS, RD, LD
--- NOTE | 2018-10-22 17:32 | NUR ---
SPOKE WITH PT AND VAIBHAV, HE STATES SHE HAS BEEN TO 2 DIFFERENT FACILITIES AND REFUSES TO LET HER GO BACK, HE STATES "THEY ARE FILTHY AND SHE WILL RETURN HOME UPON DISCHARGE", PT AGREES WITH .
[2018-10-22] MEDS: MIRTAZAPINE 15 MG TAB PO SCH (21:30)
[2018-10-22] MEDS: ATORVASTATIN 40 MG TAB PO SCH (21:30)
--- NOTE | 2018-10-22 22:20 | NUR ---
received pt from ICU, AAOx3, no resp distress, no c/o pain or discomfort, tele #20 with patient, bed in lowest and locked position, call light in reach
[2018-10-23] VITALS (8 sets, daily range): BP systolic 102–180; BP diastolic 57–96
[2018-10-23] MEDS: HYDROMORPHONE 1MG/1ML INJ IV PRN ×3 (00:16→10:04)
[2018-10-23] MEDS ORDERED: PANTOPRAZOLE 40 MG 10ML VIAL IV STA (01:14)
[2018-10-23] MEDS: SODIUM CHLORIDE 0.9% 1000ML 1,000 ML IV SCH ×2 (04:23→13:17)
[2018-10-23 05:04] LABS: BASOPHILS % 0.3 % (0.0-1.0); EOSINOPHILS # (AUTO) 0.4 (0.0-0.4); EOSINOPHILS % 4.1 % (0.0-6.0); HEMATOCRIT 23.9 % (34.2-44.1); MEAN CORPUSCULAR HEMOGLOBIN 32.8 pg (28-32); MEAN CORPUSCULAR HGB CONC 33.5 g/dL (31-35); MONOCYTES # (AUTO) 0.7 (0.2-0.8); MONOCYTES % 6.5 % (4.4-11.3); NEUTROPHILS # (AUTO) 7.1 (2.1-6.9); NEUTROPHILS % 69.6 % (38.7-80.0); PLATELET COUNT 158 x10e3/uL (140-360); RED BLOOD COUNT 2.44 x10e6/uL (3.6-5.1); RED CELL DISTRIBUTION WIDTH 14.4 % (11.7-14.4)
[2018-10-23 05:17] LABS: ALBUMIN 2.3 g/dL (3.5-5.0); ALBUMIN/GLOBULIN RATIO 0.7 (0.8-2.0); ANION GAP 11.6 mmol/L (8-16); CALCIUM 8.2 mg/dL (8.4-10.2); CREATININE, SERUM 2.45 mg/dL (0.57-1.11); POTASSIUM 3.6 mmol/L (3.5-5.1)
--- NOTE | 2018-10-23 07:11 | NUR ---
PT ASLEEP RESP EVEN AND UNLABORED AT THIS TIME NO DISTRESS NOTED, PT AROUSED TO NAME, NO C/O PAIN WHEN ASKED, PT HAS LAM, ILEOSTOMY, LEFT NECK DIALYSIS CATHETER, WITH PIG TAIL FOR USE, CALL RIGHT IN REACH.
--- NOTE | 2018-10-23 08:22 | NUR ---
no dialysis today per Dr. Escalante.
[2018-10-23] MEDS: PANTOPRAZOLE 40 MG 10ML VIAL IV SCH ×2 (09:50→17:15)
[2018-10-23] MEDS: CHOLECALCIFEROL 1,000 UNIT TAB PO SCH (09:53)
[2018-10-23] MEDS: FOLIC ACID/CYANOCOB/PYRIDOXINE TAB PO SCH (09:53)
[2018-10-23] MEDS: PANTOPRAZOLE SOD 40 MG TABEC PO SCH (09:53)
[2018-10-23] MEDS: ASPIRIN 81 MG CHEW TAB PO SCH (09:53)
[2018-10-23] MEDS: METOPROLOL TARTRATE 50 MG TAB PO SCH ×2 (09:54→17:51)
[2018-10-23] MEDS: NIFEDIPINE CR 30 MG TAB PO SCH ×2 (09:54→17:51)
--- NOTE | 2018-10-23 12:10 | NUR ---
PT OFF UNIT FOR EGD.
[2018-10-23] MEDS: LORATADINE 10 MG TAB PO SCH (12:21)
[2018-10-23] MEDS: METOCLOPRAMIDE HCL 10 MG/2ML VIAL IV SCH ×3 (12:21→21:58)
--- NOTE | 2018-10-23 14:32 | Operative Report ---
DATE OF PROCEDURE: 10/23/2018 SURGEON: Tj Weller MD PROCEDURE: Esophagogastroduodenoscopy with biopsies. INDICATIONS FOR COLONOSCOPY: Recurrent nausea, vomiting, thickened gastric and duodenal wall on CT scan of the abdomen. MEDICATIONS: The patient was done under MAC, please see anesthesiologist's note. PROCEDURE IN DETAIL: With the patient in left lateral decubitus position, flexible fiberoptic Olympus gastroscope was introduced into the esophagus under direct visualization without any difficulty. There was some patchy erythema noted in distal esophagus. The scope was then advanced with ease into the stomach. Mucosa overlying the antrum and the body revealed some patchy erythema, low-grade to moderate edema and biopsies were obtained and sent to stain for H pylori. G-tube bumper appeared to be in good position. A flat somewhat raised lesion was noted in the proximal body of the stomach and that was biopsied. Pylorus was intubated with ease and the scope was advanced all the way to the second portion of the duodenum. The scope was then withdrawn slowly, mucosa overlying the proximal second portion and duodenal bulb appeared to be within normal limits. The scope was then withdrawn back into the stomach and retroflexed and the cardia and the fundus appeared to be within normal limits. The scope was then straightened out, it was subsequently withdrawn. The patient tolerated the procedure well. IMPRESSION: 1. Mild distal esophagitis. 2. Gastritis, biopsied. Biopsies sent to stain for Helicobacter pylori. 3. Flat somewhat raised lesion, proximal body of stomach, biopsied. 4. G-tube bumper in good position. PLAN: Follow up histology. Continue PPI therapy. Tj Weller MD [facility] [place]/GABI /[id number] cc: Denzel Crawford MD
--- NOTE | 2018-10-23 14:42 | NUR ---
PT RETURNED TO UNIT RESP EVEN, AND UNLABORED AT THIS TIME, WILL CONT TO MONITOR, CALL LIGHT IN REACH.
--- NOTE | 2018-10-23 17:00 | NUR ---
here to see pt, also want dialysis catheter removed.
[2018-10-23] MEDS: MEROPENEM 500MG/ NS 50ML 500 MG in MEROPENEM 500MG/ NS 50ML 50 ML IV SCH (17:15)
--- NOTE | 2018-10-23 17:48 | NUR ---
pt refused dialysis catheter removal.
--- NOTE | 2018-10-23 18:03 | Consultation ---
DATE OF CONSULTATION: REASON FOR CONSULTATION: UTI, cystitis. HISTORY OF PRESENT ILLNESS: This patient, who is a very pleasant and well known to me, 68-year-old with complicated medical history. The patient comes in with nausea and vomiting, which she had episodes like that before when she came with nausea and vomiting. The patient, who had multiple admissions to the hospital for the last couple of years. 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 Her course was complicated by several long admissions to the hospital, several episodes of sepsis, fungemia, and line infection as well as pneumonia. The patient had colostomy. The patient has history of chronic kidney disease, history of hypertension, and multiple abdominal surgeries. The patient did improve finally and went home and she is coming with nausea and vomiting, which she had this before. There was no fever, no chills. She did not have any Clark catheter, but urine culture was obtained and showed E. coli ESBL, more than 100,000. The patient felt a bit feverish. Her tells me she had a low fever, maybe 99 at the house. The patient was admitted. Her laboratory data when she first came, her white count was 12.41 and hemoglobin 12.4. Her sodium 138, potassium 3.6, and creatinine 2.45. The patient is currently lying in bed comfortably. There are no complaints. Feeling better. The patient, who had history of acute kidney injury and ATN before, on dialysis before, came off dialysis just recently at [facility] for that and [facility]. She was known to Dr. Ram and Dr. Vences. She was on TPN for prolonged time with fungemia, coming now with nausea and vomiting, but all the symptoms are resolved at present time, but I am asked to see her. PAST MEDICAL HISTORY: As above. PAST SURGICAL HISTORY: As above. She also had Port-A-Cath, also she had colostomy. ALLERGIES: NKA. SOCIAL HISTORY: There is no smoking, drug abuse, or alcohol abuse. FAMILY HISTORY: Otherwise noncontributory. REVIEW OF SYSTEMS: At the present time, HEENT: Negative. PULMONARY: Negative. CARDIAC: Negative. : Negative. SKIN: There are no other rashes. PHYSICAL EXAMINATION: VITAL SIGNS: Since admission, she has no fever. HEENT: She is not icteric. NECK: Supple. CHEST: Clear bilateral. HEART: S1 and S2. No S3, S4, or murmur. ABDOMEN: Soft. Bowel sounds present. Colostomy site noted. Old scar in the midline abdomen noted. Clark catheter noted. LABORATORY DATA: CAT scan was done showed diffuse gastroenteritis. Chest x-ray was done showed no pneumonia. The patient is going for dialysis. The hemodialysis catheter was placed. IMPRESSION: 1. Cystitis/probable urinary tract infection. Agree with meropenem. Continue as above. Plan on 14 days, 500 mg daily. 2. Hjutt-cz-yyikeuc kidney disease, on dialysis. 3. Discontinue Levaquin. Continue with meropenem. 4. Anemia of chronic disease. 5. Debility. 6. We will follow with you. Thank you for asking me to see this patient. MD LELIA Santiago/GABI /[id number]
--- NOTE | 2018-10-23 18:10 | NUR ---
DR THOMAS WAS CALLED ABOUT PT REFUSAL OF DIALYSIS REMOVAL REFUSAL. AWAITING RETURN CALL.
[2018-10-23] MEDS ORDERED: PROPOFOL IV EMULSION 10 MG/ML 50 ML VIAL ONE (18:38)
--- NOTE | 2018-10-23 19:22 | NUR ---
REPORT GIVEN, PT STABLE, NO DISTRESS NOTED
[2018-10-23] MEDS: MIRTAZAPINE 15 MG TAB PO SCH (21:58)
[2018-10-23] MEDS: ATORVASTATIN 40 MG TAB PO SCH (21:58)
[2018-10-24] VITALS: BP 145/76
[2018-10-24] MEDS: HYDROMORPHONE 1MG/1ML INJ IV PRN ×3 (03:46→14:52)
[2018-10-24 04:00] VITALS: BP 154/75
[2018-10-24] MEDS: SODIUM CHLORIDE 0.9% 1000ML 1,000 ML IV SCH (05:23)
[2018-10-24 05:36] LABS: BASOPHILS % 0.2 % (0.0-1.0); EOSINOPHILS # (AUTO) 0.2 (0.0-0.4); EOSINOPHILS % 2.5 % (0.0-6.0); HEMATOCRIT 23.2 % (34.2-44.1); HEMOGLOBIN 7.8 g/dL (12.0-16.0); LYMPHOCYTES # (AUTO) 2.1 (1.0-3.2); LYMPHOCYTES % 23.9 % (18.0-39.1); MEAN CORPUSCULAR HEMOGLOBIN 32.8 pg (28-32); MEAN CORPUSCULAR HGB CONC 33.6 g/dL (31-35); MEAN CORPUSCULAR VOLUME 97.5 fL (81-99); MONOCYTES # (AUTO) 0.6 (0.2-0.8); MONOCYTES % 6.3 % (4.4-11.3); NEUTROPHILS # (AUTO) 5.9 (2.1-6.9); NEUTROPHILS % 66.8 % (38.7-80.0); PLATELET COUNT 156 x10e3/uL (140-360); RED BLOOD COUNT 2.38 x10e6/uL (3.6-5.1); RED CELL DISTRIBUTION WIDTH 14.5 % (11.7-14.4)
[2018-10-24 07:50] LABS: ANION GAP 11.3 mmol/L (8-16); CALCIUM 8.8 mg/dL (8.4-10.2); CREATININE, SERUM 2.53 mg/dL (0.57-1.11); POTASSIUM 3.3 mmol/L (3.5-5.1)
[2018-10-24 08:17] VITALS: BP 140/77
--- NOTE | 2018-10-24 08:25 | NUR ---
potassium 3.[address] Escalante new order recvd, patient not in any distress, emptied ileostomy bag 250cc
[2018-10-24] MEDS: ASPIRIN 81 MG CHEW TAB PO SCH (08:52)
[2018-10-24] MEDS: MEROPENEM 500MG/ NS 50ML 500 MG in MEROPENEM 500MG/ NS 50ML 50 ML IV SCH (08:52)
[2018-10-24] MEDS: METOCLOPRAMIDE HCL 10 MG/2ML VIAL IV SCH ×3 (08:52→17:20)
[2018-10-24] MEDS: PANTOPRAZOLE 40 MG 10ML VIAL IV SCH ×2 (08:52→17:20)
[2018-10-24] MEDS: FOLIC ACID/CYANOCOB/PYRIDOXINE TAB PO SCH (08:52)
[2018-10-24] MEDS: LORATADINE 10 MG TAB PO SCH (08:52)
[2018-10-24] MEDS: METOPROLOL TARTRATE 50 MG TAB PO SCH ×2 (08:52→17:10)
[2018-10-24 08:53] VITALS: BP 140/77
[2018-10-24] MEDS: CHOLECALCIFEROL 1,000 UNIT TAB PO SCH (08:53)
[2018-10-24] MEDS: PANTOPRAZOLE SOD 40 MG TABEC PO SCH (08:53)
[2018-10-24] MEDS: NIFEDIPINE CR 30 MG TAB PO SCH ×2 (08:53→17:10)
[2018-10-24] MEDS ORDERED: POTASSIUM CHLORIDE 20 MEQ TAB CR PO ONE (09:00)
[2018-10-24] MEDS ORDERED: POTASSIUM CHLORIDE 20MEQ/100ML 200 ML IV ONE (09:00)
[2018-10-24] MEDS ORDERED: MERREM500 MG IV (09:14)
[2018-10-24] MEDS ORDERED: METOCLOPRAMIDE10 MG PO (09:14)
[2018-10-24] MEDS ORDERED: PANTOPRAZOLE SO40 MG PO (09:14)
[2018-10-24] MEDS ORDERED: ZOFRAN8 MG PO (09:14)
[2018-10-24] MEDS ORDERED: LEVOFLOXACIN 250MG/D5W 50ML 50 ML IV SCH (10:00)
--- NOTE | 2018-10-24 10:05 | NUR ---
Left sided port-a-cath accessed with .75 20 gauge Rockwell needle. Packed with 3.5cc Heparin (350 units). Port draws and flushed easily; pt tolerated well.
--- NOTE | 2018-10-24 10:49 | NUR ---
Received order for home IV abx. Spoke to pt at bedside and she is agreeable to use a company that takes her insurance. Pt also stated that she is currently on service with [facility]. Choice letter signed for [facility] and placed in chart. Copy to pt. Discharge pending IV abx set up and renal clearance. IV ABX order faxed to [facility] at [phone] / P [phone]. Kalli Ponce with [facility] was informed of referral. CM called [facility] and spoke to Marva. Verified that pt is currently on service with them. Informed her of DC plan. She states if pt discharges today, they will be able to admit her tomorrow. Faxed orders and clinicals to [phone] / .
--- NOTE | 2018-10-24 12:07 | NUR ---
EDUCATED ABOUT IMM, SIGNED, FILED IN CHART, WITH COPY LEFT WITH FAMILY AT BEDSIDE.
[2018-10-24 12:18] VITALS: BP 151/70
--- NOTE | 2018-10-24 14:42 | NUR ---
Right sided ileostomy bag was leaking , changed with new bag, patient tolerated well
[2018-10-24 16:00] VITALS: BP 127/67
--- NOTE | 2018-10-24 17:28 | NUR ---
Spoke to Kalli Ponce with [facility]. Pt has copay of $80. The office has spoken to pt. They will deliver medications tonight. Spoke with Marva with [facility]. Informed her that pt will discharge today. They will see pt tomorrow. Per pt's at bedside, [facility] has already called him to schedule a time to admit pt tomorrow.
--- NOTE | 2018-10-24 18:10 | NUR ---
Ileostomy bag changed X3, lt EJ Catheter take it out as per Dr Escalante, pressure dressing applied, no bleeding, patient tolerated well
--- NOTE | 2018-10-26 21:45 | Discharge Summary ---
ADMISSION DIAGNOSES: Acute kidney injury and acute tubular necrosis due to recurrent intractable nausea and vomiting with severe dehydration and volume depletion requiring emergent hemodialysis, electrolyte imbalances due to: 1. Urinary tract infection with sepsis, present on admission. 2. Hypertension. 3. Type 2 diabetes. 4. Presence of ileostomy and a left chest Port-A-Cath. 5. Stage 2 decubitus ulcer. 6. Generalized weakness and ambulatory dysfunction. 7. Depression. 8. Anxiety. 9. Insomnia. 10. Gastroesophageal reflux disease. DISCHARGE DIAGNOSES: Acute kidney injury and acute tubular necrosis due to recurrent intractable nausea and vomiting with severe dehydration and volume depletion requiring emergent hemodialysis, electrolyte imbalances due to: 1. Urinary tract infection with sepsis, present on admission. 2. Hypertension. 3. Type 2 diabetes. 4. Presence of ileostomy and a left chest Port-A-Cath. 5. Stage 2 decubitus ulcer. 6. Generalized weakness and ambulatory dysfunction. 7. Depression. 8. Anxiety. 9. Insomnia. 10. Gastroesophageal reflux disease. 11. Esophagitis. 12. Gastritis. 13. Extended spectrum beta-lactamase urinary tract infection present on admission. 14. Gastroenteritis. HISTORY: CAD, non-STEMI, recurrent intractable nausea, vomiting, recurrent and frequent UTIs, hyperlipidemia, CKD 3, hypertension, type 2 diabetes, kidney stones, GERD, depression, anxiety, glaucoma, RA, diverticulosis, diverticulitis, insomnia, cachexia, SBO. SURGICAL HISTORY: Left upper arm fistula, ileostomy placement, Port-A-Cath in the left chest, abdominal adhesiolysis, bowel resection with hernia repair and a feeding tube placement. HOSPITAL COURSE: A 68-year-old female admitted via the ER for 3-day duration of nausea and vomiting and she is unable to keep food and water down. She denies sick contacts or camping or exposure to food. She was on recent antibiotics at [facility]. Nothing improves or worsens the symptoms. On admission, the patient's GFR was 6. She was started on emergency dialysis via left side non-tunneled Trialysis catheter placement. Chest x-ray showed no pneumonia or pulmonary edema. CT of the abdomen and pelvis showed diffuse wall thickening of the stomach, duodenum and small bowel are suggestive of gastroenteritis. Blood cultures were negative. Urine culture came back positive for ESBL. The patient was initially on Rocephin, but was switched to Merrem. Her Port-A-Cath was accessed and Infectious Disease was consulted. Due to the nausea and vomiting, GI was consulted and patient had an EGD on 10/23, which showed gastritis, esophagitis, a flat, somewhat raised lesion on the stomach. The patient was started on Protonix, Reglan, and she will have two weeks total of IV Merrem per Infectious Disease recommendation. After the EGD, the patient is tolerating her diet, no longer having nausea, vomiting, or abdominal pain. She will discharge home with home health for long-term antibiotics and follow up with primary care, Nephrology and Infectious Disease in 1 to 2 weeks. The patient and son understand discharge instructions and agree to plan. Vital signs stable, patient afebrile. Dictated by Carolynn Blas NP MD LATRELL Verdugo/MODL /[id number]
[2018-10-29] MEDS ORDERED: CLONIDINE HCL 0.3MG/24 HR PATCH TD SCH (09:00)
== END 2018-10-24 20:21 | disposition home health service (06) | DRG 871 ==
LOC: ER 13:07 → ERHOLD 14:05 → ICU 10-21 00:40 → MED/SURG2 10-22 22:22
PROVIDERS: ADMIT Internal Medicine; ATTEND Internal Medicine
PROC: 0DB68ZX Excision of Stomach, Via Natural or Artificial Opening Endoscopic, Diagnostic (ICD-10-PCS; principal; 2018-10-20)
PROC: 0DB78ZX Excision of Stomach, Pylorus, Via Natural or Artificial Opening Endoscopic, Diagnostic (ICD-10-PCS; 2018-10-20)
PROC: 02HV33Z Insertion of Infusion Device into Superior Vena Cava, Percutaneous Approach (ICD-10-PCS; 2018-10-22)
DX: A41.9 Sepsis, unspecified organism (principal); N17.0 Acute kidney failure with tubular necrosis; N39.0 Urinary tract infection, site not specified; E87.2 Acidosis; E87.1 Hypo-osmolality and hyponatremia; N18.3 Chronic kidney disease, stage 3 (moderate); E11.22 Type 2 diabetes mellitus with diabetic chronic kidney disease; L89.152 Pressure ulcer of sacral region, stage 2; E87.5 Hyperkalemia; E83.42 Hypomagnesemia; E86.0 Dehydration; F32.9 Major depressive disorder, single episode, unspecified; F41.9 Anxiety disorder, unspecified; R26.9 Unspecified abnormalities of gait and mobility; I12.9 Hypertensive chronic kidney disease with stage 1 through stage 4 chronic kidney disease, or unspecified chronic kidney disease; G47.00 Insomnia, unspecified; Z93.2 Ileostomy status; L89.92 Pressure ulcer of unspecified site, stage 2; K20.9 Esophagitis, unspecified; K29.70 Gastritis, unspecified, without bleeding; E87.8 Other disorders of electrolyte and fluid balance, not elsewhere classified; B96.20 Unspecified Escherichia coli [E. coli] as the cause of diseases classified elsewhere; Z16.12 Extended spectrum beta lactamase (ESBL) resistance
CPT/HCPCS: 36415; 36556; 43239; 51700; 71045; 74176; 74470; 76937; 80048; 80053; 81001; 82550; 82553; 82948; 83036; 83690; 83735; 83880; 84100; 84443; 84484; 85025; 85610; 85730; 87040; 87086; 87186; 88305; 88312; 88331; 93005; 94640; 96361; 97139; 99285; J0610; J0696; J1170; J1642; J1644; J1817; J2150; J2270; J2405; J2765; J3475; J3480; J7030; J7799

== ENCOUNTER 2018-11-05 07:07 | Inpatient (IN) | payer OTHER ==
[~2018-11-05] VITALS: Ht 144.8 cm; Wt 47.2 kg
[~2018-11-05 07:07] MED LIST changes: +MERREM500 MG IV; +METOCLOPRAMIDE10 MG PO
--- OUTSIDE RECORDS SUMMARY | 2018-11-05 07:12 | XMS REPORT | Clinical Summary ---
Author Author [facility] Address Unknown Phone Unavailable Care Team Providers Care Pleater Name Role Phone Cody Cheng MD PCP Allergies Not on File Medications No known medications Active Problems No known active problems Encounters Care Team Description Date Type Specialty N/A 04/30/2018 Intake Access N/A 04/25/2018 Intake Access after 11/04/2017 Social History Date Tobacco Use Types Packs/Day [...] INFLUENZA VACCINE 09/11/2018 Results Not on fileafter 11/04/2017 Insurance Type Payer Benefit Subscriber ID Effective Phone Address Plan / Dates Group HMO [employer] xxxxxxxxx 2017- [id number] Present Medicaid MEDICAID MEDICAID xxxxxxxxx [id number] Advance Directives For more information, please contact: [phone] Patient Bartender Explanation Type Date Recorded Advance Directives, Living Will and Medical Power of Design Chief
--- OUTSIDE RECORDS SUMMARY | 2018-11-05 07:12 | XMS REPORT | Clinical Summary ---
Author Author [facility] Address Unknown Phone Unavailable Care Team Providers Care Entry Level Buyer Name Role Phone Cody Cheng PCP Jarrell Gaytan MD Unavailable Unavailable Arnulfo Pina MD 3 Allergies Not on File Medications End Date Status Medication Sig Dispensed Refills Start Date Active metoprolol (TOPROL-XL) Take 100 mg 0 100 MG 24 hr by mouth tabletIndications: ESRD daily. (end stage renal disease) ([facility]) Active pantoprazole (PROTONIX) Take 20 mg by 0 20 MG tabletIndications: mouth daily. ESRD (end stage renal disease) ([facility]) Active folic acid (FOLVITE) 1 MG Take 1 mg by 0 tabletIndications: ESRD mouth daily. (end stage renal disease) ([facility]) Active ondansetron (ZOFRAN) 8 MG Take by mouth 0 tabletIndications: ESRD every 8 (end stage renal disease) (eight) hours ([facility]) as needed for Nausea. Active sodium bicarbonate 650 MG Take 1 tablet 0 tabletIndications: ESRD by mouth 4 (end stage renal disease) (four) times ([facility]) daily. Active sertraline (ZOLOFT) 100 Take 100 mg 0 MG tabletIndications: by mouth ESRD (end stage renal daily. disease) ([facility]) Active ranitidine (ZANTAC) 150 Take 150 mg 0 MG capsuleIndications: by mouth 2 ESRD (end stage renal (two) times disease) ([facility]) daily. Active sevelamer (RENVELA) 800 Take 800 mg 0 mg tabletIndications: by mouth 3 ESRD (end stage renal (three) times disease) ([facility]) daily with meals. Active metoclopramide HCl Take 10 mg by 0 (REGLAN) 10 MG mouth 4 tabletIndications: ESRD (four) times (end stage renal disease) daily as ([facility]) needed for Nausea. Active amLODIPine (NORVASC) 10 Take 10 mg by 0 MG tabletIndications: mouth daily. ESRD (end stage renal disease) ([facility]) Active SUMAtriptan (IMITREX) 100 Take 100 mg 0 MG tabletIndications: by mouth once ESRD (end stage renal as needed for disease) ([facility]) Headaches. Active zolpidem (AMBIEN) 10 mg Take 10 mg by 0 tabletIndications: ESRD mouth every (end stage renal disease) night as ([facility]) needed for Insomnia. Active promethazine (PHENERGAN) Take 25 mg by 0 25 MG tabletIndications: mouth every 6 ESRD (end stage renal (six) hours disease) ([facility]) as needed for Nausea. Active insulin aspart (NOVOLOG) Inject 12 0 100 unit/mL Units InPnIndications: ESRD subcutaneousl (end stage renal disease) y 3 (three) ([facility]) times daily with meals. Active insulin detemir (LEVEMIR) Inject 30 0 100 unit/mL (3 mL) InPn Units injectionIndications: subcutaneousl ESRD (end stage renal y nightly. disease) ([facility]) Active vit B cmplex Take 1 tablet 0 6-KH-[id number]-[id number]-Zn ox by mouth 1-60-300-12.5 daily. [id number] TabIndications: ESRD (end stage renal disease) ([facility]) Active cholecalciferol, vitamin Take 1,000 0 D3, 1,000 unit Units by capsuleIndications: ESRD mouth daily. (end stage renal disease) ([facility]) Active LORazepam (ATIVAN) 0.5 MG Take 0.5 mg 0 tabletIndications: ESRD by mouth (end stage renal disease) every 6 (six) ([facility]) hours as needed for Anxiety. [...] INFLUENZA VACCINE 11/11/2017 Results Not on fileafter 11/04/2017 Insurance Payer Benefit Subscriber ID Type Phone Address Plan / Group [employer] xxxxxxxxx Maps HMO ALL Contracted MEDICAID MEDICAID xxxxxxxxx Medicaid OF [place]
--- OUTSIDE RECORDS SUMMARY | 2018-11-05 07:14 | XMS REPORT | Continuity of Care Document ---
Author Author [employer] Organization [employer] Address Unknown Phone Unavailable Care Team Providers Care Book Sorter Name Role Phone [employer] Unavailable Unavailable Problems Problem Status Onset Date Classification Date Reported Comments Source Persistent postprocedural fistula, initial encounter 03/22/2018 09/22/2018 [facility] ABD PAIN Active 02/25/2018 [facility] ABDOMINAL PAIN, ACUTE, ACUTE LOWER UTI, Active 02/25/2018 [facility] Other complications of enterostomy 01/21/2018 08/02/2018 [facility] N/V Active 01/21/2018 [facility] MAGI Active 01/21/2018 [facility] ABDOMINAL FISTULA LEAKING Active 12/31/2017 [facility] R10.10 - "UPPER ABDOMINAL PAIN, UNSPECIF Active 03[facility]17/[facility] [place] Unspecified abdominal pain 08/02/2018 [facility] Hypo-osmolality and hyponatremia 09/02/2018 [facility] Acidosis 09/22/2018 [facility] Fistula of intestine 09/22/2018 [facility] Acute kidney failure, unspecified 09/22/2018 [facility] Disruption of external operation wound, not elsewhere classified, initial encounter 08/02/2018 [facility] Chronic kidney disease, stage 4 08/02/2018 [facility] Iron deficiency anemia secondary to blood loss 08/02/2018 [facility] Type 2 diabetes mellitus with diabetic chronic kidney disease 09/22/2018 [facility] Hyperlipidemia, unspecified 09/22/2018 [facility] Other disorders of phosphorus metabolism 08/02/2018 [facility] Volume depletion, unspecified 08/02/2018 [facility] Hyperkalemia 09/02/2018 [facility] Unspecified osteoarthritis, unspecified site 09/22/2018 [facility] Cyst of kidney, acquired 09/22/2018 [facility] Acquired absence of other specified parts of digestive tract 09/22/2018 [facility] Retention of urine, unspecified 08/02/2018 [facility] Hypertensive chronic kidney disease with stage 1 through stage 4 chronic kidney disease, or unspecified chronic kidney disease 09/22/2018 [facility] Toxic encephalopathy 09/02/2018 [facility] Ulcer of esophagus without bleeding 09/02/2018 [facility] Chronic kidney disease, stage 3 09/02/2018 [facility] Diaphragmatic hernia without obstruction or gangrene 09/02/2018 [facility] Gastritis, unspecified, without bleeding 09/02/2018 [facility] Anemia in other chronic diseases classified elsewhere 09/02/2018 [facility] senior living use of insulin 09/02/2018 [facility] Ileostomy status 09/02/2018 [facility] Personal history of nicotine dependence 09/22/2018 [facility] Dehydration 09/22/2018 [facility] Hypomagnesemia 09/22/2018 [facility] Adverse effect of unspecified nonopioid analgesic, antipyretic and antirheumatic, initial encounter 09/02/2018 [facility] Gastro-esophageal reflux disease with esophagitis 09/02/2018 [facility] Hypokalemia 09/22/2018 [facility] Other malaise 09/22/2018 [facility] Nausea with vomiting, unspecified 09/02/2018 [facility] Type 2 diabetes mellitus with hypoglycemia without coma 09/02/2018 [facility] Fever, unspecified 09/02/2018 [facility] Pain in right forearm 09/02/2018 [facility] Unspecified right bundle-branch block 09/02/2018 [facility] Epigastric pain 09/02/2018 [facility] Surgical operation with formation of external stoma as the cause of abnormal reaction of the patient, or of later complication, without mention of misadventure at the time of the procedure 09/02/2018 [facility] Urinary tract infection, site not specified 09/22/2018 [facility] Chronic kidney disease, stage 3 (moderate) 09/22/2018 [facility] Tremor, unspecified 09/22/2018 [facility] Hypocalcemia 09/22/2018 [facility] Pressure ulcer of sacral region, unstageable 09/22/2018 [facility] Anemia in chronic kidney disease 09/22/2018 [facility] Other specified disorders of the skin and subcutaneous tissue 09/22/2018 [facility] Colostomy status 09/22/2018 [facility] Bed confinement status 09/22/2018 [facility] UNSPECIFIED ABDOMINAL PAIN Active [facility] FISTULA OF STOMACH AND DUODENUM Active [facility] ACUTE KIDNEY FAILURE, UNSPECIFIED Active [facility] URINARY TRACT INFECTION, SITE NOT SPECIF Active [facility] Medications Medication Details Route Status Patient Instructions Ordering Provider Order Date Source Octreotide 0.1 MG/ML Injectable Solution [Sandostatin] 100 microgram, SUB-Q, BID, X 30 day, # 60 vial, 0 Refill(s), other No Longer Active 03/05/2018 [facility] loperamide 2 mg oral capsule 2 mg=1 cap, PO, Q4H, PRN loose stools, # 30 cap, 0 Refill(s), other Active 03/05/2018 [facility] potassium chloride 20 mEq oral tablet, extended release 40 mEq, 2 tab, Route: PO, Drug form: ERTAB, ONCE, Dosing Weight 53.4, kg, Start date: 03/05/18 17:41:00 TRAINING PROJECT MANAGER, Stop date: 03/05/18 17:41:00 CSTNotes: (Same as: K- Dur 20) "Do Not Crush" Give with food and full glass of water For patients unable to swallow tablet, dissolve in one half glass of water. Allow about 2 minutes for the tablets to disintegrate. Stir before giving to prepare slurry an d administer. Please exclude Patients with feeding tube less than 14 [place] (Dobhoff, J-tube etc) and pediatric and patients. Inactive 03/05/2018 [facility] Ondansetron 4 MG Disintegrating Tablet [Zofran] 4 mg=1 tab, PO, TID, Dissolve tab under tongue, # 20 tab, 0 Refill(s) Active 03/05/2018 [facility] enoxaparin 30 mg/0.3 mL subcutaneous solution 30 mg=0.3 mL, SUB-Q, [id number], 0 Refill(s) Active 03/05/2018 [facility] Acetaminophen 300 MG / Codeine Phosphate 30 MG Oral Tablet [Tylenol with Codeine #3] 1 tab, PO, Q6H, PRN Pain, # 25 tab, 0 Refill(s) Active 03/05/2018 [facility] Phenergan 25 mg oral tablet 25 mg=1 tab, PO, Q6H, PRN Nausea, # 30 tab, 0 Refill(s), other Active 03/05/2018 [facility] metoprolol extended release 25 mg, 1 tab, Route: PO, Drug form: ERTAB, Daily, Priority: NOW, Start date: 03/02/18 23:10:00 TRAINING PROJECT MANAGER, Duration: 30 day, Stop date: 04/01/18 9:00:00 CSTNotes: (Same as: Toprol XL) Do Not Crush No Longer Active 03/03/2018 [facility] Promethazine 25 mg, 1 mL, Route: IVPB, Q6H, Dosing Weight 53.4, kg, PRN Nausea & Vomiting, Start date: 03/02/18 7:41:00 TRAINING PROJECT MANAGER, Duration: 30 day, Stop date: 04/01/18 7:40:00 CSTNotes: Do not give IV push. (Same as: Phenergan) No Longer Active 03/02/2018 [facility] Magnesium Sulfate 2 gm, 50 mL, Route: IVPB, Drug form: INJ, ONCE, Dosing Weight 53.4, kg, Start date: 02/28/18 17:34:00 TRAINING PROJECT MANAGER, Stop date: 02/28/18 17:34:00 CSTNotes: WASTE: F/P - Sink; E - Municipal Trash Bin Inactive 02/28/2018 [facility] Tums 1,000 mg, 2 tab, Route: CHEW, Drug form: CHEWTAB, TID-Before Meals, Dosing Weight 53.4, kg, Start date: 02/28/18 16:30:00 TRAINING PROJECT MANAGER, Duration: 30 day, Stop date: 03/30/18 11:30:00 CSTNotes: (Same As: Tums) Calcium Carbonate 500 pv=158 mg elemental calcium Dose= mg calcium carbonate ( mg elemental calcium) No Longer Active 02/28/2018 [facility] Calcium Gluconate 1,000 mg, 10 mL, Route: IVPB, ONCE, Dosing Weight 53.4, kg, Start date: 02/28/18 13:54:00 TRAINING PROJECT MANAGER, Stop date: 02/28/18 13:54:00 CSTNotes: WASTE: F/P - Sink; E - [employer] Trash Bin Inactive 02/28/2018 [facility] Magnesium Sulfate 2 gm, 50 mL, Route: IVPB, Drug form: INJ, ONCE, Dosing Weight 53.4, kg, Start date: 02/28/18 13:54:00 TRAINING PROJECT MANAGER, Stop date: 02/28/18 13:54:00 CSTNotes: WASTE: F/P - Sink; E - Municipal Trash Bin Inactive 02/28/2018 [facility] Magnesium Sulfate 2 gm, 50 mL, Route: IV, Drug form: INJ, ONCE, Dosing Weight 53.4, kg, Start date: 02/28/18 10:56:00 TRAINING PROJECT MANAGER, Stop date: 02/28/18 10:56:00 CSTNotes: WASTE: F/P - Sink; E - Municipal Trash Bin Inactive 02/28/2018 [facility] Dilaudid 1 mg, 1 mL, Route: IVP, Drug form: SOLN, ONCE, Dosing Weight 53.4, kg, Priority: STAT, Start date: 02/28/18 10:37:00 TRAINING PROJECT MANAGER, Stop date: 02/28/18 10:37:00 CSTNotes: (Same as: Dilaudid) Inactive 02/28/2018 [facility] Insulin Lispro 2 unit, 0.02 mL, Route: SUB-Q, Drug form: SOLN, Bedtime, Dosing Weight 53.4, kg, PRN Blood Glucose Results, Start date: 02/27/18 22:09:00 TRAINING PROJECT MANAGER, Duration: 30 day, Stop date: 03/29/18 22:08:00 CSTNotes: (Same as: Humalog ) Roll in palms of hands gently; Do not shake `vigorously. "Single Patient Use Only " WASTE: F/P - Black; E - Municipal Trash Bin Stable for 28 days at room temperature. Expires in days from Date No Longer Active 02/28/2018 [facility] Dextrose 50% Syringe 25 gm, 50 mL, Route: IVP, Drug Form: INJ, Dosing Weight 53.4, kg, PRN, PRN Blood Glucose Results, Start date: 02/27/18 22:09:00 TRAINING PROJECT MANAGER, Duration: 30 day, Stop date: 03/29/18 22:08:00 TRAINING PROJECT MANAGER No Longer Active 02/28/2018 [facility] Glucagon 1 mg, Route: IM, Drug form: PDR/INJ, PRN, Dosing Weight 53.4, kg, PRN Blood Glucose Results, Start date: 02/27/18 22:09:00 TRAINING PROJECT MANAGER, Duration: 30 day, Stop date: 03/29/18 22:08:00 TRAINING PROJECT MANAGER No Longer Active 02/28/2018 [facility] Tums 1,000 mg, 2 tab, Route: CHEW, Drug form: CHEWTAB, TID-Meals, Dosing Weight 53.4, kg, Start date: 02/27/18 17:00:00 TRAINING PROJECT MANAGER, Duration: 30 day, Stop date: 03/29/18 12:00:00 CSTNotes: (Same As: Tums) Calcium Carbonate 500 rl=469 mg elemental calcium Dose= mg calcium carbonate ( mg elemental calcium) No Longer Active 02/27/2018 [facility] Calcium Gluconate 2,000 mg, 20 mL, Route: IVPB, ONCE, Dosing Weight 53.4, kg, Start date: 02/27/18 10:59:00 TRAINING PROJECT MANAGER, Stop date: 02/27/18 10:59:00 CSTNotes: WASTE: F/P - Sink; E - Municipal Trash Bin Inactive 02/27/2018 [facility] Potassium Chloride 1.33 MEQ/ML Oral Solution 20 mEq, 1 tab, Route: PO, Drug form: ERTAB, ONCE, Dosing Weight 53.4, kg, Start date: 02/27/18 10:59:00 TRAINING PROJECT MANAGER, Stop date: 02/27/18 10:59:00 TRAINING PROJECT MANAGER Inactive 02/27/2018 [facility] Zinc Oxide 0.2 MG/MG Topical Ointment Route: TOP, BID, Drug form: OINT, Start date: 02/27/18 9:00:00 TRAINING PROJECT MANAGER, Duration: 30 day, Stop date: 03/28/18 17:00:00 CSTNotes: Same as: Desitin No Longer Active 02/27/2018 [facility] Timothy packet 1 pkt, Route: PO, Drug Form: PWDR, Dosing Weight 53.4, kg, BID-Before Meals, Start date: 02/27/18 7:30:00 TRAINING PROJECT MANAGER, Duration: 28 day, Stop date: 03/26/18 16:30:00 CSTNotes: (Same as: [place]) No Longer Active 02/27/2018 [facility] cefepime 1 gm, Route: IVPB, [id number], Dosing Weight 62.727, kg, (CrCl >/=50 ml/min), Start date: 02/26/18 16:00:00 TRAINING PROJECT MANAGER, Duration: 7 day, Stop date: 03/04/18 16:00:00 TRAINING PROJECT MANAGER, ABX Indication: Urinary Tract InfectionNotes: (Same As: Maxipime) MEDICATION WASTE Product Size: 1000 mg Product Wasted: ___ mg No Longer Active 02/26/2018 [facility] Promethazine 25 mg, PO, Q6H, 0 Refill(s) No Longer Active 02/26/2018 [facility] Famotidine 40 mg, PO, Bedtime, # 60 tab, 0 Refill(s) Active 02/26/2018 [facility] pramipexole 0.125 mg oral tablet 0.125 mg=1 tab, PO, Daily, 0 Refill(s) Active 02/26/2018 [facility] sucralfate 1 g oral tablet 1 gm=1 tab, PO, QID-Before Meals, 0 Refill(s) Active 02/26/2018 [facility] Sodium Bicarbonate 10 grain, PO, BID, 0 Refill(s) Active 02/26/2018 [facility] atorvastatin 40 mg oral tablet 40 mg=1 tab, PO, Bedtime, # 90 tab, 1 Refill(s) Active 02/26/2018 [facility] Lovenox 30 mg, 0.3 mL, Route: SUB-Q, Drug form: INJ, [id number], Dosing Weight 62.727, kg, Start date: 02/25/18 20:00:00 TRAINING PROJECT MANAGER, Duration: 30 day, Stop date: 03/26/18 20:00:00 CSTNotes: (Same as: Lovenox) No Longer Active 02/26/2018 [facility] Calcium Gluconate 3,000 mg, 30 mL, Route: IVPB, ONCE, Dosing Weight 62.727, kg, Start date: 02/25/18 18:58:00 TRAINING PROJECT MANAGER, Stop date: 02/25/18 18:58:00 CSTNotes: WASTE: F/P - Sink; E - Municipal Trash Bin Inactive 02/26/2018 [facility] Hydromorphone 0.5 mg, Route: IVP, ONCE, Dosing Weight 62.727, kg, Priority: STAT, Start date: 02/25/18 18:45:00 TRAINING PROJECT MANAGER, Stop date: 02/25/18 18:45:00 TRAINING PROJECT MANAGER Inactive 02/26/2018 [facility] Hydralazine 10 mg, 0.5 mL, Route: IVP, Drug form: INJ, Q4H, Dosing Weight 62.727, kg, PRN Hypertension, Priority: Routine, Start date: 02/25/18 18:09:00 TRAINING PROJECT MANAGER, Duration: 30 day, Stop date: 03/27/18 18:08:00 CSTNotes: (Same as: Apresoline) Push over 5 minutes No Longer Active 02/26/2018 [facility] Seroquel 25 mg, 1 tab, Route: PO, Drug form: TAB, BID, Dosing Weight 62.727, kg, PRN Agitation, Start date: 02/25/18 18:09:00 TRAINING PROJECT MANAGER, Duration: 30 day, Stop date: 03/27/18 18:08:00 CSTNotes: (Same as: SEROquel) No Longer Active 02/26/2018 [facility] Acetaminophen 325 MG / Hydrocodone Bitartrate 5 MG Oral Tablet [[place] 5/325] 1 tab, Route: PO, Drug Form: TAB, Dosing Weight 62.727, kg, Q6H, PRN Pain Score 1-3, Start date: 02/25/18 18:09:00 TRAINING PROJECT MANAGER, Duration: 30 day, Stop date: 03/27/18 18:08:00 CSTNotes: (Same as: [place] 325/5) Do not exceed 4gm/day of acetaminophen. No Longer Active 02/26/2018 [facility] Morphine 2 mg, 0.5 mL, Route: IVP, Drug form: SOLN, Q4H, Dosing Weight 62.727, kg, PRN Pain Score 7-10, Start date: 02/25/18 18:09:00 TRAINING PROJECT MANAGER, Duration: 30 day, Stop date: 03/27/18 18:08:00 CSTNotes: (Same as:MORPhine Sulfate) No Longer Active 02/26/2018 [facility] magnesium citrate 58.2 MG/ML Oral Solution 300 ml, Route: PO, Drug Form: LIQ, Dosing Weight 62.727, kg, ONCE, PRN Constipation, Start date: 02/25/18 18:09:00 CSTNotes: (Same as: Citrate of Magnesia) Concentration: 1.745 gm / 30 mL No Longer Active 02/26/2018 [facility] Nicotine 21 mg, 1 patch, Route: TOP, Drug form: ERFILM, Daily, Dosing Weight 62.727, kg, PRN as needed for smoking cessation, Start date: 02/25/18 18:09:00 TRAINING PROJECT MANAGER, Duration: 30 day, Stop date: 03/27/18 18:08:00 TRAINING PROJECT MANAGER Notes: (Same as: Habitrol) "Remove old patch before application of new patch" WASTE: F/P - P Waste Black; E - P Waste Black No Longer Active 02/26/2018 [facility] Glucagon 1 mg, Route: IM, Drug form: PDR/INJ, PRN, Dosing Weight 62.727, kg, PRN Blood Glucose Results, Start date: 02/25/18 18:09:00 TRAINING PROJECT MANAGER, Duration: 30 day, Stop date: 03/27/18 18:08:00 TRAINING PROJECT MANAGER No Longer Active 02/26/2018 [facility] Dextrose 50% Syringe 12.5 gm, 25 mL, Route: IVP, Drug Form: INJ, Dosing Weight 62.727, kg, PRN, PRN Blood Glucose Results, Start date: 02/25/18 18:09:00 TRAINING PROJECT MANAGER, Duration: 30 day, Stop date: 03/27/18 18:08:00 TRAINING PROJECT MANAGER No Longer Active 02/26/2018 [facility] Acetaminophen 650 mg, 2 tab, Route: PO, Drug form: TAB, Q6H, Dosing Weight 62.727, kg, PRN For Temp > 100.4 F, Start date: 02/25/18 18:09:00 TRAINING PROJECT MANAGER, Duration: 30 day, Stop date: 03/27/18 18:08:00 CSTNotes: Do not exceed 4 gm/day. (Same as: Tylenol) No Longer Active 02/26/2018 [facility] Trazodone 50 mg, 1 tab, Route: PO, Drug form: TAB, Bedtime, Dosing Weight 62.727, kg, PRN Insomnia, Start date: 02/25/18 18:09:00 TRAINING PROJECT MANAGER, Duration: 30 day, Stop date: 03/27/18 18:08:00 CSTNotes: (Same As: Desyrel) No Longer Active 02/26/2018 [facility] Melatonin 3 mg, 1 tab, Route: PO, Drug form: TAB, Bedtime, Dosing Weight 62.727, kg, PRN Insomnia, Start date: 02/25/18 18:09:00 TRAINING PROJECT MANAGER, Duration: 30 day, Stop date: 03/27/18 18:08:00 CSTNotes: (Same as: Melatonin) No Longer Active 02/26/2018 [facility] Diphenhydramine 25 mg, 1 tab, Route: PO, Drug form: TAB, Q6H, Dosing Weight 62.727, kg, PRN as needed for allergy symptoms, Start date: 02/25/18 18:09:00 TRAINING PROJECT MANAGER, Duration: 30 day, Stop date: 03/27/18 18:08:00 TRAINING PROJECT MANAGER No Longer Active 02/26/2018 [facility] POLYETHYLENE GLYCOL 3350 17 gm, 1 pkt, Route: PO, Drug form: PWDR, Daily, Dosing Weight 62.727, kg, PRN Constipation, Start date: 02/25/18 18:09:00 TRAINING PROJECT MANAGER, Duration: 30 day, Stop date: 03/27/18 18:08:00 CSTNotes: Dissolve in 8 oz of water or juice. (Same as: Miralax) No Longer Active 02/26/2018 [facility] Ondansetron 4 mg, 2 mL, Route: IVP, Drug form: INJ, Q6H, Dosing Weight 62.727, kg, PRN Nausea & Vomiting, Start date: 02/25/18 18:09:00 TRAINING PROJECT MANAGER, Duration: 30 day, Stop date: 03/27/18 18:08:00 CSTNotes: (Same as: Zofran) MEDICATION WASTE Product Size: 4 mg Product Wasted: ___ mg No Longer Active 02/26/2018 [facility] Bisacodyl 10 mg, 1 supp, Route: TN, Drug form: SUPP, Daily, Dosing Weight 62.727, kg, PRN Constipation, Start date: 02/25/18 18:09:00 TRAINING PROJECT MANAGER, Duration: 30 day, Stop date: 03/27/18 18:08:00 CSTNotes: (Same As: Dulcolax, Bisco-Lax) No Longer Active 02/26/2018 [facility] NS 1,000 mL 1,000 mL, Rate: 125 ml/hr, Infuse over: 8 hr, Route: IV, Dosing Weight 53.4 kg, Total Volume: 1,000, Start date: 02/25/18 16:38:00 TRAINING PROJECT MANAGER, Duration: 30 day, Stop date: 03/27/18 16:37:00 TRAINING PROJECT MANAGER, 1.38, m2 No Longer Active 02/25/2018 [facility] Sodium Chloride 0.9% (Bolus) IV 1,000 mL, 1000 ml/hr, Infuse Over: 1 hr, Route: IV, 1,000, Drug form: INJ, ONCE, Priority: STAT, Dosing Weight 62.727 kg, Start date: 02/25/18 15:24:00 TRAINING PROJECT MANAGER, Stop date: 02/25/18 15:24:00 TRAINING PROJECT MANAGER Inactive 02/25/2018 [facility] cefepime 1 gm, Route: IVPB, ONCE, Dosing Weight 62.727, kg, Priority: STAT, Start date: 02/25/18 15:20:00 TRAINING PROJECT MANAGER, Stop date: 02/25/18 15:20:00 TRAINING PROJECT MANAGER, ABX Indication: Urinary Tract Infection Inactive 02/25/2018 [facility] Morphine 2 mg, 1 mL, Route: IVP, Drug form: SOLN, ONCE, Dosing Weight 62.727, kg, Priority: STAT, Start date: 02/25/18 13:24:00 TRAINING PROJECT MANAGER, Stop date: 02/25/18 13:24:00 TRAINING PROJECT MANAGER Inactive 02/25/2018 [facility] Ondansetron 4 mg, 2 mL, Route: IVP, Drug form: INJ, ONCE, Dosing Weight 62.727, kg, Priority: STAT, Start date: 02/25/18 13:24:00 TRAINING PROJECT MANAGER, Stop date: 02/25/18 13:24:00 CSTNotes: (Same as: Tomas) MEDICATION WASTE Product Size: 4 mg Product Wasted: ___ mg Inactive 02/25/2018 [facility] Sodium Chloride 0.9% (Bolus) IV 1,000 mL, 1000 ml/hr, Infuse Over: 1 hr, Route: IV, 1,000, Drug form: INJ, ONCE, Priority: STAT, Dosing Weight 62.727 kg, Start date: 02/25/18 13:24:00 TRAINING PROJECT MANAGER, Stop date: 02/25/18 13:24:00 TRAINING PROJECT MANAGER Inactive 02/25/2018 [facility] Saline Flush 0.9% 10 mL, Route: IVP, Drug Form: INJ, Dosing Weight 62.727, kg, PRN, PRN Line Flush, Start date: 02/25/18 13:24:00 TRAINING PROJECT MANAGER, Duration: 30 day, Stop date: 03/27/18 13:23:00 CSTNotes: Same as: BD Posiflush Sterile No Longer Active 02/25/2018 [facility] Urocit-K 10 mEq, 1 tab, Route: PO, Drug form: ERTAB, TID- Meals, Dosing Weight 59.091, kg, Start date: 02/13/18 17:00:00 TRAINING PROJECT MANAGER, Duration: 30 day, Stop date: 03/15/18 12:00:00 TRAINING PROJECT MANAGER Inactive 02/13/2018 [facility] Calcium Gluconate 2,000 mg, 20 mL, Route: IVPB, ONCE, Dosing Weight 59.091, kg, Start date: 02/13/18 11:36:00 TRAINING PROJECT MANAGER, Stop date: 02/13/18 11:36:00 CSTNotes: WASTE: F/P - Sink; E - Municipal Trash Bin Inactive 02/13/2018 [facility] Prednisone 60 mg, 3 tab, Route: PO, Drug form: TAB, Daily, Dosing Weight 59.091, kg, Priority: NOW, Start date: 02/12/18 13:23:00 TRAINING PROJECT MANAGER, Duration: 5 day, Stop date: 02/17/18 9:00:00 CSTNotes: Take with food. No Longer Active 02/12/2018 [facility] Sodium Bicarbonate 325 MG Oral Tablet 650 mg, 1 tab, Route: PO, Drug form: TAB, BID, Dosing Weight 59.091, kg, Start date: 02/12/18 9:00:00 TRAINING PROJECT MANAGER, Duration: 30 day, Stop date: 03/13/18 17:00:00 CSTNotes: "Dissolve tablet in a glass of water prior to oral administration. STOMACH WARNING: To avoid serious injury, do not take until tablet is completely dissolved. It is very important not to take this product when overly full from food or drink." No Longer Active 02/12/2018 [facility] sodium bicarbonate 8.4% additive 75 mEq + D5W 1/2NS 1,000 mL 1,000 mL, Rate: 75 ml/hr, Infuse over: 14.3 hr, Route: IV, Dosing Weight 59.091 kg, Total Volume: 1,075, Start date: 02/12/18 7:59:00 TRAINING PROJECT MANAGER, Duration: 30 day, Stop date: 03/14/18 7:58:00 TRAINING PROJECT MANAGER, 1.58, f5Discg: (sodium bicarb 8.4% (1 mEq/ml) 50 ml VL) No Longer Active 02/12/2018 [facility] Merrem 500 mg, Route: IVPB, [id number], Dosing Weight 59.091, kg, CrCL >=50ml/min, Extended infusion, infuse over 3 hours, Start date: 02/07/18 16:00:00 TRAINING PROJECT MANAGER, Duration: 10 day, Stop date: 02/17/18 10:00:00 TRAINING PROJECT MANAGER, ABX Indication: BacteremiaNotes: Same as Merrem MEDICATION WASTE Product Size: 500 mg Product Wasted: ___ mg No Longer Active 02/07/2018 [facility] meropenem + sterile water 10 mL 500 mg, Route: IV, ONCE, Start date: 02/07/18 8:06:00 TRAINING PROJECT MANAGER, Stop date: 02/07/18 8:06:00 TRAINING PROJECT MANAGER, ABX Indication: BacteremiaNotes: Same as Merrem MEDICATION WASTE Product Size: 500 mg Product Wasted: ___ mg Inactive 02/07/2018 [facility] Imitrex 6 mg, 0.5 mL, Route: SUB-Q, Drug form: INJ, ONCE, Dosing Weight 59.091, kg, PRN Headache 6-10, Start date: 02/04/18 14:38:00 CSTNotes: For SUBCUTANEOUS use only Inactive 02/04/2018 [facility] D5NS 1,000 mL 1,000 mL, Rate: 75 ml/hr, Infuse over: 13.3 hr, Route: IV, Dosing Weight 59.091 kg, Total Volume: 1,000, Start date: 02/04/18 7:09:00 TRAINING PROJECT MANAGER, Duration: 30 day, Stop date: 03/06/18 7:08:00 TRAINING PROJECT MANAGER, 1.58, m2 No Longer Active 02/04/2018 [facility] sodium bicarbonate 8.4% additive 75 mEq + 1/2 NS 1,000 mL 1,000 mL, Rate: 70 ml/hr, Infuse over: 15.4 hr, Route: IV, Dosing Weight 59.091 kg, Total Volume: 1,075, Start date: 01/31/18 10:34:00 TRAINING PROJECT MANAGER, Duration: 30 day, Stop date: 03/02/18 10:33:00 TRAINING PROJECT MANAGER, 1.58, [id number]: (sodium bicarb 8.4% (1 mEq/ml) 50 ml VL) No Longer Active 01/31/2018 [facility] Adult Parenteral Nutrition Custom - Central (TPN) 1,850 mL 1,850 mL, Rate: 75 ml/hr, Infuse over: 24.7 hr, Dosing Weight 59.091, kg, Route: IV, Total Volume: 1,850 mL, Start Date: 01/26/18 22:00:00 TRAINING PROJECT MANAGER, Duration: 24 hr, Stop date: 01/27/18 21:59:00 TRAINING PROJECT MANAGER, Replace Every: 24 hrNotes: Central line only Must use 1.2 micron filter AND Lipids should not be administered to patients who are allergic to soy, fish, egg or peanuts. No Longer Active 01/27/2018 [facility] Magnesium Sulfate 2 gm, 50 mL, Route: IVPB, Drug form: INJ, ONCE, Dosing Weight 59.091, kg, Start date: 01/26/18 13:19:00 TRAINING PROJECT MANAGER, Stop date: 01/26/18 13:19:00 CSTNotes: WASTE: F/P - Sink; E - Municipal Trash Bin Inactive 01/26/2018 [facility] Insulin Lispro 2 unit, 0.02 mL, Route: SUB-Q, Drug form: SOLN, Bedtime, Dosing Weight 59.091, kg, PRN Blood Glucose Results, Start date: 01/26/18 12:49:00 TRAINING PROJECT MANAGER, Duration: 30 day, Stop date: 02/25/18 12:48:00 CSTNotes: (Same as: Humalog ) Roll in palms of hands gently; Do not shake `vigorously. "Single Patient Use Only " WASTE: F/P - Black; E - Municipal Trash Bin Stable for 28 days at room temperature. Expires in days from Date No Longer Active 01/26/2018 [facility] Dextrose 50% Syringe 25 mL, Route: IVP, Dosing Weight 59.091, kg, PRN, PRN Blood Glucose Results, Start date: 01/26/18 12:49:00 TRAINING PROJECT MANAGER, Duration: 30 day, Stop date: 02/25/18 12:48:00 TRAINING PROJECT MANAGER Inactive 01/26/2018 [facility] Glucagon 1 mg, Route: IM, PRN, Dosing Weight 59.091, kg, PRN Blood Glucose Results, Start date: 01/26/18 12:49:00 TRAINING PROJECT MANAGER, Duration: 30 day, Stop date: 02/25/18 12:48:00 TRAINING PROJECT MANAGER Inactive 01/26/2018 [facility] Adult Parenteral Nutrition Custom - Central (TPN) 1,850 mL 1,850 mL, Rate: 75 ml/hr, Infuse over: 24.7 hr, Dosing Weight 59.091, kg, Route: IV, Total Volume: 1,850 mL, Start Date: 01/25/18 22:00:00 TRAINING PROJECT MANAGER, Duration: 24 hr, Stop date: 01/26/18 21:59:00 TRAINING PROJECT MANAGER, Replace Every: 24 hrNotes: Central line only Must use 1.2 micron filter AND Lipids should not be administered to patients who are allergic to soy, fish, egg or peanuts. No Longer Active 01/26/2018 [facility] Levemir FlexPen 15 unit, Route: SUB-Q, Bedtime, Dosing Weight 59.091, kg, Start date: 01/25/18 21:00:00 TRAINING PROJECT MANAGER, Duration: 30 day, Stop date: 02/23/18 21:00:00 TRAINING PROJECT MANAGER Inactive 01/26/2018 [facility] insulin glargine 15 unit, 0.15 mL, Route: SUB-Q, Drug form: SOLN, Bedtime, Start date: 01/25/18 21:00:00 TRAINING PROJECT MANAGER, Duration: 30 day, Stop date: 02/23/18 21:00:00 CSTNotes: (Same as: Lantus) Do not hold insulin without contac ting prescriber WASTE: F/P - Black; E - Municipal Trash Bin "single patient use only" No Longer Active 01/26/2018 [facility] Adult Parenteral Nutrition Custom - Central (TPN) 1,850 mL 1,850 mL, Rate: 75 ml/hr, Infuse over: 24.7 hr, Dosing Weight 59.091, kg, Route: IV, Total Volume: 1,850 mL, Start Date: 01/24/18 22:00:00 TRAINING PROJECT MANAGER, Duration: 24 hr, Stop date: 01/25/18 21:59:00 TRAINING PROJECT MANAGER, Replace Every: 24 hr No Longer Active 01/25/2018 [facility] K-Dur 20 40 mEq, 2 tab, Route: PO, Drug form: ERTAB, BID, Dosing Weight 59.091, kg, Priority: Routine, Start date: 01/24/18 18:30:00 TRAINING PROJECT MANAGER, Duration: 1 doses or times, Stop date: [...] Patients with feeding tube less than 14 [place] (Dobhoff, J-tube etc) and pediatric and patients. Inactive 01/25/2018 [facility] Protonix 40 mg, 1 tab, Route: PO, Drug form: ECTAB, BID, Dosing Weight 59.091, kg, Start date: 01/24/18 17:00:00 TRAINING PROJECT MANAGER, Duration: 30 day, Stop date: 02/23/18 9:00:00 CSTNotes: Tablet should not be chewed or crushed. (Same as: Protonix) No Longer Active 01/24/2018 [facility] Potassium Chloride 40 mEq, 30 mL, Route: PO, Drug form: LIQ, BID, Dosing Weight 59.091, kg, Priority: Routine, Start date: 01/24/18 9:00:00 TRAINING PROJECT MANAGER, Duration: 2 doses or times, Stop date: 01/24/18 17:00:00 CSTNotes: (Same as: Potassium Chloride) Inactive 01/24/2018 [facility] Adult Parenteral Nutrition Custom - Central (TPN) 1,850 mL 1,850 mL, Rate: 75 ml/hr, Infuse over: 24.7 hr, Dosing Weight 59.091, kg, Route: IV, Total Volume: 1,850 mL, Start Date: 01/23/18 22:00:00 TRAINING PROJECT MANAGER, Duration: 24 hr, Stop date: 01/24/18 21:59:00 TRAINING PROJECT MANAGER, Replace Every: 24 hr No Longer Active 01/24/2018 [facility] Insulin Lispro 3 unit, 0.03 mL, Route: SUB-Q, Drug form: SOLN, Sliding Scale, Dosing Weight 59.091, kg, PRN Blood Glucose Results, Start date: 01/23/18 21:46:00 TRAINING PROJECT MANAGER, Duration: 30 day, Stop date: 02/22/18 21:45:00 CSTN otes: (Same as: Humalog ) Roll in palms of hands gently; Do not shake `vigorously. "Single Patient Use Only " WASTE: F/P - Black; E - Municipal Trash Bin Stable for 28 days at room temperature. Expires in days from Date No Longer Active 01/24/2018 [facility] Glucagon 1 mg, Route: IM, Drug form: PDR/INJ, PRN, Dosing Weight 59.091, kg, PRN Blood Glucose Results, Start date: 01/23/18 21:46:00 TRAINING PROJECT MANAGER, Duration: 30 day, Stop date: 02/22/18 21:45:00 TRAINING PROJECT MANAGER No Longer Active 01/24/2018 [facility] Dextrose 50% Syringe 25 gm, 50 mL, Route: IVP, Drug Form: INJ, Dosing Weight 59.091, kg, PRN, PRN Blood Glucose Results, Start date: 01/23/18 21:46:00 TRAINING PROJECT MANAGER, Duration: 30 day, Stop date: 02/22/18 21:45:00 TRAINING PROJECT MANAGER No Longer Active 01/24/2018 [facility] D5W 1/2NS + KCL 30mEq/L 1000ml (Premix) 1,000 mL 1,000 mL, Rate: 100 ml/hr, Infuse over: 10 hr, Route: IV, Dosing Weight 59.091 kg, Total Volume: 1,000, Start date: 01/23/18 15:57:00 TRAINING PROJECT MANAGER, Duration: 30 day, Stop date: 02/22/18 15:56:00 TRAINING PROJECT MANAGER, 1.58, [id number]: PREMIX IV - Do Not Alter WASTE: F/P - Sink; E - Municipal Trash Bin Inactive 01/23/2018 [facility] Sucralfate 100 MG/ML Oral Suspension [Carafate] 1 gm, 1 tab, Route: PO, Drug form: TAB, QID, Dosing Weight 59.091, kg, Start date: 01/23/18 9:00:00 TRAINING PROJECT MANAGER, Duration: 30 day, Stop date: 02/21/18 21:00:00 CSTNotes: May interfere w/enteral feeds - Take 1 hr before or 2 hr after antacids, dairy pdt, meals & minerals - On empty stomach. For patients unable to swallow tablet, dissolve in 10mL - 30mL of water or juice and stir before giving. (Same As: Carafate) No Longer Active 01/23/2018 [facility] Sodium Chloride 0.9% IV 1,000 mL 1,000 mL, Rate: 25 ml/hr, Infuse over: 40 hr, Route: IV, Dosing Weight 59.091 kg, Total Volume: 1,000, Start date: 01/23/18 8:24:00 TRAINING PROJECT MANAGER, Duration: 1 day, Stop date: 01/24/18 8:23:00 TRAINING PROJECT MANAGER, 1.58, m2 Inactive 01/23/2018 [facility] Amlodipine 10 mg, 2 tab, Route: PO, Drug form: TAB, Daily, Dosing Weight 59.091, kg, Start date: 01/22/18 9:00:00 TRAINING PROJECT MANAGER, Duration: 30 day, Stop date: 03/22/18 9:00:00 CSTNotes: (Same as: Norvasc) No Longer Active 01/22/2018 [facility] Sertraline 100 mg, 1 tab, Route: PO, Drug form: TAB, Daily, Dosing Weight 59.091, kg, Start date: 01/22/18 9:00:00 TRAINING PROJECT MANAGER, Duration: 30 day, Stop date: 03/22/18 9:00:00 CSTNotes: (Same as: Zoloft) No Longer Active 01/22/2018 [facility] Protonix 40 mg, 1 tab, Route: PO, Drug form: ECTAB, Daily, Dosing Weight 59.091, kg, Start date: 01/22/18 9:00:00 TRAINING PROJECT MANAGER, Duration: 30 day, Stop date: 02/20/18 9:00:00 CSTNotes: Tablet should not be chewed or crushed. (Same as: Protonix) No Longer Active 01/22/2018 [facility] 24 HR Metoprolol Tartrate 25 MG Extended Release Tablet [Toprol] 25 mg, 1 tab, Route: PO, Drug form: ERTAB, Daily, Start date: 01/22/18 9:00:00 TRAINING PROJECT MANAGER, Duration: 30 day, Stop date: 03/22/18 9:00:00 CSTNotes: (Same as: Toprol XL) Do Not Crush No Longer Active 01/22/2018 [facility] gabapentin 300 MG Oral Capsule 300 mg, 1 cap, Route: PO, Drug form: CAP, Daily, Dosing Weight 59.091, kg, Start date: 01/22/18 9:00:00 TRAINING PROJECT MANAGER, Duration: 30 day, Stop date: 02/20/18 9:00:00 CSTNotes: (Same as: Neurontin) No Longer Active 01/22/2018 [facility] sodium bicarbonate 8.4% 50 mEq, 50 ml, Route: IVP, Drug Form: INJ, Dosing Weight 59.091, kg, ONCE, Start date: 01/22/18 6:44:00 TRAINING PROJECT MANAGER, Stop date: 01/22/18 6:44:00 CSTNotes: (sodium bicarb 8.4% (1 mEq/ml) 50 ml syringe) Inactive 01/22/2018 [facility] Magnesium Sulfate 2 gm, 50 mL, Route: IV, Drug form: INJ, ONCE, Dosing Weight 59.091, kg, Start date: 01/22/18 6:43:00 TRAINING PROJECT MANAGER, Stop date: 01/22/18 6:43:00 CSTNotes: WASTE: F/P - Sink; E - Municipal Trash Bin Inactive 01/22/2018 [facility] Water 1000 MG/ML Injectable Solution 1,000 mL, Rate: 125 ml/hr, Infuse over: 9.2 hr, Route: IV, Dosing Weight 59.091 kg, Total Volume: 1,150, Start date: 01/22/18 6:43:00 TRAINING PROJECT MANAGER, Duration: 30 day, Stop date: 02/21/18 6:42:00 TRAINING PROJECT MANAGER, 1.58, [id number]: (sodium bicarb 8.4% (1 mEq/ml) 50 ml VL) No Longer Active 01/22/2018 [facility] carvedilol 6.25 mg, 2 tab, Route: PO, Drug form: TAB, BID, Dosing Weight 59.091, kg, Start date: 01/21/18 21:00:00 TRAINING PROJECT MANAGER, Duration: 30 day, Stop date: 02/20/18 9:00:00 CSTNotes: Give with food. (Same As: Coreg) Inactive 01/22/2018 [facility] sennosides, LONG-TERM 17.2 mg, 2 tab, Route: PO, Drug Form: TAB, Dosing Weight 59.091, kg, Bedtime, Start date: 01/21/18 21:00:00 TRAINING PROJECT MANAGER, Duration: 30 day, Stop date: 02/19/18 21:00:00 CSTNotes: (Same as: Senokot) No Longer Active 01/22/2018 [facility] Insulin Lispro 2 unit, 0.02 mL, Route: SUB-Q, Drug form: SOLN, Bedtime, Dosing Weight 59.091, kg, PRN Blood Glucose Results, Start date: 01/21/18 17:44:00 TRAINING PROJECT MANAGER, Duration: 30 day, Stop date: 02/20/18 17:43:00 CSTNotes: (Same as: Humalog ) Roll in palms of hands gently; Do not shake `vigorously. "Single Patient Use Only " WASTE: F/P - Black; E - Municipal Trash Bin Stable for 28 days at room temperature. Expires in days from Date No Longer Active 01/21/2018 [facility] Glucagon 1 mg, Route: IM, PRN, Dosing Weight 59.091, kg, PRN Blood Glucose Results, Start date: 01/21/18 17:44:00 TRAINING PROJECT MANAGER, Duration: 30 day, Stop date: 02/20/18 17:43:00 TRAINING PROJECT MANAGER Inactive 01/21/2018 [facility] Dextrose 50% Syringe 50 mL, Route: IVP, Dosing Weight 59.091, kg, PRN, PRN Blood Glucose Results, Start date: 01/21/18 17:44:00 TRAINING PROJECT MANAGER, Duration: 30 day, Stop date: 02/20/18 17:43:00 TRAINING PROJECT MANAGER Inactive 01/21/2018 [facility] Morphine 2 mg, 1 mL, Route: IV, Drug form: SOLN, Q4H, Dosing Weight 59.091, kg, PRN Pain Score 6-10, Start date: 01/21/18 17:41:00 TRAINING PROJECT MANAGER, Duration: 30 day, Stop date: 02/20/18 17:40:00 TRAINING PROJECT MANAGER No Longer Active 01/21/2018 [facility] Phenergan 12.5 mg, 0.5 mL, Route: IVPB, Q6H, Dosing Weight 59.091, kg, PRN as needed for nausea/vomiting, Start date: 01/21/18 17:41:00 TRAINING PROJECT MANAGER, Duration: 30 day, Stop date: 02/20/18 17:40:00 CSTNotes: Do not give IV push. (Same as: Phenergan) No Longer Active 01/21/2018 [facility] NS (Bolus) IV 1,000 mL, 500 ml/hr, Infuse Over: 2 hr, Route: IV, 1,000, Drug form: INJ, ONCE, Priority: STAT, Dosing Weight 59.091 kg, Start date: 01/21/18 17:39:00 TRAINING PROJECT MANAGER, Stop date: 01/21/18 17:39:00 TRAINING PROJECT MANAGER Inactive 01/21/2018 [facility] Docusate 100 mg, 1 cap, Route: PO, Drug form: CAP, BID, Dosing Weight 59.091, kg, Start date: 01/21/18 17:00:00 TRAINING PROJECT MANAGER, Duration: 30 day, Stop date: 02/20/18 9:00:00 CSTNotes: (Same as: Colace) (Do Not Crush) No Longer Active 01/21/2018 [facility] Metoprolol Succinate ER 50 mg oral tablet, extended release 50 mg=1 tab, PO, Daily, TAKE 1 TABLET BY MOUTH EVERY DAY Active 01/21/2018 [facility] Lorazepam 0.5 mg, 1 tab, Route: PO, Drug form: TAB, BID, Dosing Weight 59.091, kg, PRN Anxiety, Start date: 01/21/18 12:38:00 TRAINING PROJECT MANAGER, Duration: 30 day, Stop date: 02/20/18 12:37:00 CSTNotes: (Same as: Ativan) No Longer Active 01/21/2018 [facility] Phenergan 25 mg, 1 mL, Route: IVPB, Q6H, Dosing Weight 59.091, kg, PRN Nausea & Vomiting, Start date: 01/21/18 12:37:00 TRAINING PROJECT MANAGER, Duration: 30 day, Stop date: 02/20/18 12:36:00 CSTNotes: Do not give IV push. (Same as: Phenergan) Inactive 01/21/2018 [facility] Acetaminophen 325 MG / Hydrocodone Bitartrate 5 MG Oral Tablet [[place] 5/325] 1 tab, Route: PO, Drug Form: TAB, Dosing Weight 59.091, kg, Q6H, PRN Pain Score 1-3, Start date: 01/21/18 12:35:00 TRAINING PROJECT MANAGER, Duration: 30 day, Stop date: 02/20/18 12:34:00 CSTNotes: (Same as: [place] 325/5) Do not exceed 4gm/day of acetaminophen. No Longer Active 01/21/2018 [facility] Morphine 4 mg, 1 mL, Route: IVP, Drug form: SOLN, Q4H, Dosing Weight 59.091, kg, PRN Pain Score 7-10, Start date: 01/21/18 12:35:00 TRAINING PROJECT MANAGER, Duration: 30 day, Stop date: 02/20/18 12:34:00 CSTNotes: (Same as:MORPhine Sulfate) Inactive 01/21/2018 [facility] NS (Bolus) IV 1,000 mL, 500 ml/hr, Infuse Over: 2 hr, Route: IV, 1,000, Drug form: INJ, ONCE, Priority: STAT, Dosing Weight 59.091 kg, Start date: 01/21/18 12:33:00 TRAINING PROJECT MANAGER, Stop date: 01/21/18 12:33:00 TRAINING PROJECT MANAGER Inactive 01/21/2018 [facility] Magnesium Sulfate 2 gm, 50 mL, Route: IVPB, Drug form: INJ, ONCE, Dosing Weight 59.091, kg, Start date: 01/21/18 12:32:00 TRAINING PROJECT MANAGER, Stop date: 01/21/18 12:32:00 CSTNotes: WASTE: F/P - Sink; E - Municipal Trash Bin Inactive 01/21/2018 [facility] Morphine 4 mg, Route: IVP, ONCE, Dosing Weight 59.091, kg, Start date: 01/21/18 10:30:00 TRAINING PROJECT MANAGER, Stop date: 01/21/18 10:30:00 TRAINING PROJECT MANAGER Inactive 01/21/2018 [facility] NS 1,000 mL 1,000 mL, Rate: 125 ml/hr, Infuse over: 8 hr, Route: IV, Dosing Weight 59.091 kg, Total Volume: 1,000, Start date: 01/21/18 10:10:00 TRAINING PROJECT MANAGER, Duration: 30 day, Stop date: 02/20/18 10:09:00 TRAINING PROJECT MANAGER, 1.58, m2 No Longer Active 01/21/2018 [facility] NS 500 mL 500 mL, Rate: 1,000 ml/hr, Infuse over: 0.5 hr, Route: IV, Dosing Weight 59.091 kg, Total Volume: 500, Start date: 01/21/18 10:10:00 TRAINING PROJECT MANAGER, Duration: 1 doses or times, Stop date: 01/21/18 14:09:00 TRAINING PROJECT MANAGER, Bolus Dose, 1.58, m2 Inactive 01/21/2018 [facility] Dextrose 50% Syringe 25 gm, 50 mL, Route: IVP, Drug Form: INJ, Dosing Weight 59.091, kg, PRN, PRN Blood Glucose Results, Start date: 01/21/18 9:40:00 TRAINING PROJECT MANAGER, Duration: 30 day, Stop date: 02/20/18 9:39:00 TRAINING PROJECT MANAGER No Longer Active 01/21/2018 [facility] Glucagon 1 mg, Route: IM, Drug form: PDR/INJ, PRN, Dosing Weight 59.091, kg, PRN Blood Glucose Results, Start date: 01/21/18 9:40:00 TRAINING PROJECT MANAGER, Duration: 30 day, Stop date: 02/20/18 9:39:00 TRAINING PROJECT MANAGER No Longer Active 01/21/2018 [facility] Acetaminophen 650 mg, 2 tab, Route: PO, Drug form: TAB, Q4H, Dosing Weight 59.091, kg, PRN For Temp > 100.4 F, Start date: 01/21/18 9:40:00 TRAINING PROJECT MANAGER, Duration: 30 day, Stop date: 02/20/18 9:39:00 CSTNotes: Do not exceed 4 gm/day. (Same as: Tylenol) No Longer Active 01/21/2018 [facility] Melatonin 3 mg, 1 tab, Route: PO, Drug form: TAB, Bedtime, Dosing Weight 59.091, kg, PRN Insomnia, Start date: 01/21/18 9:40:00 TRAINING PROJECT MANAGER, Duration: 30 day, Stop date: 02/20/18 9:39:00 CSTNotes: (Same as: Melatonin) No Longer Active 01/21/2018 [facility] Ondansetron 4 mg, 2 mL, Route: IVP, Drug form: INJ, Q8H, Dosing Weight 59.091, kg, PRN Nausea & Vomiting, Start date: 01/21/18 9:40:00 TRAINING PROJECT MANAGER, Duration: 30 day, Stop date: 02/20/18 9:39:00 CSTNotes: (Same as: Zofran) MEDICATION WASTE Product Size: 4 mg Product Wasted: ___ mg No Longer Active 01/21/2018 [facility] Metoprolol 5 mg, Route: IVP, Drug form: INJ, ONCE, Dosing Weight 59.091, kg, Priority: STAT, Start date: 01/21/18 9:37:00 TRAINING PROJECT MANAGER, Stop date: 01/21/18 9:37:00 TRAINING PROJECT MANAGER Inactive 01/21/2018 [facility] Morphine 4 mg, 1 mL, Route: IVP, Drug form: SOLN, ONCE, Dosing Weight 59.091, kg, Priority: STAT, Start date: 01/21/18 8:05:00 TRAINING PROJECT MANAGER, Stop date: 01/21/18 8:05:00 CSTNotes: (Same as:MORPhine Sulfate) Inactive 01/21/2018 [facility] Sodium Chloride 0.9% (Bolus) IV 1,000 mL, 1000 ml/hr, Infuse Over: 1 hr, Route: IV, 1,000, Drug form: INJ, ONCE, Priority: STAT, Dosing Weight 59.091 kg, Start date: 01/21/18 7:58:00 TRAINING PROJECT MANAGER, Stop date: 01/21/18 7:58:00 TRAINING PROJECT MANAGER Inactive 01/21/2018 [facility] Ondansetron 4 mg, Route: IVP, Drug form: INJ, ONCE, Dosing Weight 59.091, kg, Priority: STAT, Start date: 01/21/18 6:36:00 TRAINING PROJECT MANAGER, Stop date: 01/21/18 6:36:00 TRAINING PROJECT MANAGER Inactive 01/21/2018 [facility] Sodium Chloride 0.9% (Bolus) IV 1,000 mL, Infuse Over: 1 hr, Route: IV, ONCE, Priority: STAT, Dosing Weight 59.091 kg, Start date: 01/21/18 6:36:00 TRAINING PROJECT MANAGER, Stop date: 01/21/18 6:36:00 TRAINING PROJECT MANAGER Inactive 01/21/2018 [facility] Morphine 4 mg, Route: IVP, ONCE, Dosing Weight 59.091, kg, Priority: STAT, Start date: 01/21/18 6:36:00 TRAINING PROJECT MANAGER, Stop date: 01/21/18 6:36:00 TRAINING PROJECT MANAGER Inactive 01/21/2018 [facility] LORazepam 0.5 mg oral tablet 0.5 mg=1 tab, PO, BID, PRN Anxiety, # 20 tab, 0 Refill(s) Active 01/13/2018 [facility] pantoprazole 40 MG Enteric Coated Tablet [Protonix] 40 mg=1 tab, PO, Daily, # 30 tab, 0 Refill(s), Pharmacy: [facility]/pharmacy #[id number] Active 01/13/2018 [facility] Ondansetron 4 MG Disintegrating Tablet [Zofran] 4 mg=1 tab, PO, Q6H, PRN Nausea & Vomiting, Dissolve tab under tongue, # 30 tab, 0 Refill(s), Pharmacy: [facility]/pharmacy #[id number] Active 01/13/2018 [facility] Hydromorphone 1 mg, 1 mL, Route: IVP, Drug form: SOLN, ONCE, Dosing Weight 60.909, kg, Priority: STAT, Start date: 01/10/18 13:14:00 TRAINING PROJECT MANAGER, Stop date: 01/10/18 13:14:00 CSTNotes: (Same as: Dilaudid) Inactive 01/10/2018 [facility] Adult Parenteral Nutrition Custom - Central (TPN) 1,850 mL 1,850 mL, Rate: 75 ml/hr, Infuse over: 24.7 hr, Dosing Weight 60.909, kg, Route: IV, Total Volume: 1,850 mL, Start Date: 01/07/18 22:00:00 TRAINING PROJECT MANAGER, Duration: 24 hr, Stop date: 01/08/18 21:59:00 TRAINING PROJECT MANAGER, Replace Every: 24.7 hr No Longer Active 01/08/2018 [facility] Adult Parenteral Nutrition Custom - Central (TPN) 1,850 mL 1,850 mL, Rate: 75 ml/hr, Infuse over: 24.7 hr, Dosing Weight 60.909, kg, Route: IV, Total Volume: 1,850 mL, Start Date: 01/06/18 22:00:00 TRAINING PROJECT MANAGER, Duration: 24 hr, Stop date: 01/07/18 21:59:00 TRAINING PROJECT MANAGER, Replace Every: 24 hrNotes: Central line only Must use 0.22 micron filter No Longer Active 01/07/2018 [facility] Adult Parenteral Nutrition Custom - Central (TPN) 1,850 mL 1,850 mL, Rate: 75 ml/hr, Infuse over: 24.7 hr, Dosing Weight 60.909, kg, Route: IV, Total Volume: 1,850 mL, Start Date: 01/05/18 22:00:00 TRAINING PROJECT MANAGER, Duration: 24 hr, Stop date: 01/06/18 21:59:00 TRAINING PROJECT MANAGER, Replace Every: 24.7 hrNotes: Central line only Must use 0.22 micron filter No Longer Active 01/06/2018 [facility] Insulin Lispro 15 unit, 0.15 mL, Route: SUB-Q, Drug form: SOLN, ONCE, Dosing Weight 60.909, kg, Start date: 01/04/18 22:20:00 TRAINING PROJECT MANAGER, Stop date: 01/04/18 22:20:00 CSTNotes: (Same as: Humalog ) Roll in palms of hands g ently; Do not shake `vigorously. "Single Patient Use Only " WASTE: F/P - Black; E - Municipal Trash Bin Stable for 28 days at room temperature. Expires in days from Date Inactive 01/05/2018 [facility] Lovenox 30 mg, 0.3 mL, Route: SUB-Q, Drug form: INJ, [id number], Dosing Weight 60.909, kg, For CrCl Notes: (Same as: Lovenox) No Longer Active 01/05/2018 [facility] Adult Parenteral Nutrition Custom - Central (TPN) 1,850 mL 1,850 mL, Rate: 75 ml/hr, Infuse over: 24.7 hr, Dosing Weight 60.909, kg, Route: IV, Total Volume: 1,850 mL, Start Date: 01/04/18 22:00:00 TRAINING PROJECT MANAGER, Duration: 24 hr, Stop date: 01/05/18 21:59:00 TRAINING PROJECT MANAGER, Replace Every: 24.7 hrNotes: Central line only Must use 0.22 micron filter No Longer Active 01/05/2018 [facility] insulin glargine 15 unit, 0.15 mL, Route: SUB-Q, Drug form: SOLN, Bedtime, Start date: 01/04/18 21:00:00 TRAINING PROJECT MANAGER, Duration: 30 day, Stop date: 02/02/18 21:00:00 CSTNotes: (Same as: Lantus) Do not hold insulin without contac ting prescriber WASTE: F/P - Black; E - Municipal Trash Bin "single patient use only" No Longer Active 01/05/2018 [facility] Levemir FlexPen 15 unit, Route: SUB-Q, Bedtime, Dosing Weight 60.909, kg, Start date: 01/04/18 21:00:00 TRAINING PROJECT MANAGER, Duration: 30 day, Stop date: 02/02/18 21:00:00 TRAINING PROJECT MANAGER No Longer Active 01/05/2018 [facility] Melatonin 3 mg, 1 tab, Route: PO, Drug form: TAB, Bedtime, Dosing Weight 60.909, kg, PRN Sleep, Start date: 01/04/18 15:50:00 TRAINING PROJECT MANAGER, Duration: 30 day, Stop date: 02/03/18 15:49:00 CSTNotes: (Same as: Melatonin) No Longer Active 01/04/2018 [facility] Ativan 0.5 mg, 1 tab, Route: PO, Drug form: TAB, TID, Dosing Weight 60.909, kg, PRN Anxiety, Start date: 01/04/18 15:50:00 TRAINING PROJECT MANAGER, Duration: 30 day, Stop date: 02/03/18 15:49:00 CSTNotes: (Same as: Ativan) No Longer Active 01/04/2018 [facility] Ambien 5 mg, 1 tab, Route: PO, Drug form: TAB, Bedtime, Dosing Weight 60.909, kg, PRN Insomnia, Start date: 01/04/18 15:24:00 TRAINING PROJECT MANAGER, Duration: 30 day, Stop date: 02/03/18 15:23:00 CSTNotes: (Same As: Ambien) No Longer Active 01/04/2018 [facility] Amlodipine 10 mg, 2 tab, Route: PO, Drug form: TAB, Daily, Dosing Weight 60.909, kg, Start date: 01/04/18 9:00:00 TRAINING PROJECT MANAGER, Duration: 30 day, Stop date: 02/02/18 9:00:00 CSTNotes: (Same as: Norvasc) No Longer Active 01/04/2018 [facility] carvedilol 6.25 mg, 2 tab, Route: PO, Drug form: TAB, BID, Dosing Weight 60.909, kg, Start date: 01/04/18 9:00:00 TRAINING PROJECT MANAGER, Duration: 30 day, Stop date: 02/02/18 17:00:00 CSTNotes: Give with food. (Same As: Coreg) No Longer Active 01/04/2018 [facility] Sertraline 100 mg, 1 tab, Route: PO, Drug form: TAB, Daily, Dosing Weight 60.909, kg, Start date: 01/04/18 9:00:00 TRAINING PROJECT MANAGER, Duration: 30 day, Stop date: 02/02/18 9:00:00 CSTNotes: (Same as: Zoloft) No Longer Active 01/04/2018 [facility] pantoprazole 40 mg, Route: IVP, Drug form: INJ, Q12H, Dosing Weight 60.909, kg, Start date: 01/04/18 9:00:00 TRAINING PROJECT MANAGER, Duration: 30 day, Stop date: 02/02/18 21:00:00 CSTNotes: For IV push reconstitute with 10 ml 0.9% sod ium chloride and push over 2 minutes. (Same as: Protonix) No Longer Active 01/04/2018 [facility] Octreotide 50 microgram, 0.5 mL, Route: SUB-Q, Drug form: INJ, TID, Dosing Weight 60.909, kg, Start date: 01/04/18 9:00:00 TRAINING PROJECT MANAGER, Duration: 30 day, Stop date: 02/02/18 17:00:00 CSTNotes: (Same As: SandoSTATIN). Ref rigerate. MEDICATION WASTE Product Size: 100 microgram Product Wasted: ___ microgram No Longer Active 01/04/2018 [facility] 24 HR Metoprolol Tartrate 25 MG Extended Release Tablet [Toprol] 25 mg, 1 tab, Route: PO, Drug form: ERTAB, Daily, Start date: 01/04/18 9:00:00 TRAINING PROJECT MANAGER, Duration: 30 day, Stop date: 02/02/18 9:00:00 TRAINING PROJECT MANAGER No Longer Active 01/04/2018 [facility] Adult Parenteral Nutrition Custom - Central (TPN) 1,370 mL 1,370 mL, Rate: 55 ml/hr, Infuse over: 24.9 hr, Dosing Weight 60.909, kg, Route: IV, Total Volume: 1,370 mL, Start Date: 01/03/18 22:00:00 TRAINING PROJECT MANAGER, Duration: 24 hr, Stop date: 01/04/18 21:59:00 TRAINING PROJECT MANAGER, Replace Every: 24.9 hr No Longer Active 01/04/2018 [facility] Lorazepam 0.25 mg, 0.5 tab, Route: PO, Drug form: TAB, BID, Dosing Weight 60.909, kg, PRN Anxiety, Start date: 01/03/18 21:39:00 TRAINING PROJECT MANAGER, Duration: 30 day, Stop date: 02/02/18 21:38:00 CSTNotes: (Same as: Ativan) No Longer Active 01/04/2018 [facility] octreotide 50 mcg/mL injectable solution 50 microgram, SUB-Q, TID, # 1 ml, 0 Refill(s) No Longer Active 01/04/2018 [facility] gabapentin 300 MG Oral Capsule 300 mg=1 cap, PO, Daily, 0 Refill(s) No Longer Active 01/04/2018 [facility] Furosemide 40 MG Oral Tablet [Lasix] 40 mg=1 tab, PO, Daily, # 90 tab, 0 Refill(s) Active 01/04/2018 [facility] 0.4 ML Enoxaparin sodium 100 MG/ML Prefilled Syringe [Lovenox] 40 mg, SUB-Q, Daily, # 7 ea, 0 Refill(s) No Longer Active 01/04/2018 [facility] ziprasidone 5 mg, IM, Q6H, 0 Refill(s) No Longer Active 01/04/2018 [facility] Insulin, Aspart, Human SUB-Q, TID-Before Meals, 0 Refill(s) Active 01/04/2018 [facility] Diclofenac Sodium 0.01 MG/MG Topical Gel 2 gm=, TOP, QID, 0 Refill(s) No Longer Active 01/04/2018 [facility] 1 ML Hydromorphone Hydrochloride 1 MG/ML Prefilled Syringe [Dilaudid] 1 mg=1 ml, IM, Q4H, PRN Pain, 0 Refill(s) No Longer Active 01/04/2018 [facility] LORazepam 0.5 mg oral tablet 0.25 mg=0.5 tab, PO, BID, PRN Anxiety, # 15 tab, 0 Refill(s) No Longer Active 01/04/2018 [facility] 168 HR Clonidine 0.75342 MG/HR Transdermal Patch 1 patch, TOP, qWeek, # 4 patch, 0 Refill(s) No Longer Active 01/04/2018 [facility] carvedilol 6.25 mg oral tablet 6.25 mg=1 tab, PO, BID, # 180 tab, 0 Refill(s) No Longer Active 01/04/2018 [facility] amLODIPine 10 mg oral tablet 10 mg=1 tab, PO, Daily, # 90 tab, 0 Refill(s) Active 01/04/2018 [facility] metoprolol tartrate 25 mg oral tablet 25 mg=1 tab, PO, BID, # 60 tab, 0 Refill(s) No Longer Active 01/04/2018 [facility] Lidocaine 4 %, IV, Daily, 0 Refill(s) No Longer Active 01/04/2018 [facility] Lidocaine 0.05 MG/MG Transdermal Patch TOP, Daily, 0 Refill(s) No Longer Active 01/04/2018 [facility] sertraline 100 mg oral tablet 100 mg=1 tab, PO, Daily, # 30 tab, 0 Refill(s) Active 01/04/2018 [facility] Acetaminophen 325 MG / Hydrocodone Bitartrate 10 MG Oral Tablet [[place] 10/325] 1 tab, PO, Q4H, PRN for pain, # 24 tab, 0 Refill(s) Active 01/04/2018 [facility] Albuterol 0.833 MG/ML / Ipratropium [place] 0.167 MG/ML Inhalant Solution 3 mL, INHALATION, Q6H, PRN Wheezing, # 30 ea, 1 Refill(s) Active 01/04/2018 [facility] pantoprazole 40 mg intravenous injection 40 mg, IV, Q12H, 0 Refill(s) No Longer Active 01/04/2018 [facility] Hydralazine 10 mg, IV, Q4H, PRN Hypertension, 0 Refill(s) No Longer Active 01/04/2018 [facility] Ondansetron 2 MG/ML Injectable Solution [Zofran] 4 mg=2 ml, IV, Q6H, PRN Nausea & Vomiting, # 1 ea, 0 Refill(s) No Longer Active 01/04/2018 [facility] Metoclopramide 5 mg, IV, 0 Refill(s) No Longer Active 01/04/2018 [facility] Acetaminophen 650 mg, PO, Q6H, PRN Pain 4-6/Temp > 100.4 F, 0 Refill(s) Active 01/04/2018 [facility] Tylenol 650 mg, 2 tab, Route: PO, Drug form: TAB, Q6H, Dosing Weight 60.909, kg, PRN Pain 1-3/Temp > 100.4 F, Start date: 01/03/18 14:56:00 TRAINING PROJECT MANAGER, Duration: 30 day, Stop date: 02/02/18 14:55:00 CSTNotes: Do not exceed 4 gm/day. (Same as: Tylenol) No Longer Active 01/03/2018 [facility] Adult Parenteral Nutrition Custom - Central (TPN) 1,370 mL 1,370 mL, Rate: 55 ml/hr, Infuse over: 24.9 hr, Dosing Weight 60.909, kg, Route: IV Central, Total Volume: 1,370 mL, Start Date: 01/02/18 22:00:00 TRAINING PROJECT MANAGER, Duration: 24 hr, Stop date: 01/03/18 21:59:00 TRAINING PROJECT MANAGER, Replace Every: 24.9 hrNotes: Central line only Must use 0.22 micron filter No Longer Active 01/03/2018 [facility] Insulin Lispro 15 unit, 0.15 mL, Route: SUB-Q, Drug form: SOLN, Sliding Scale, Dosing Weight 60.909, kg, PRN Blood Glucose Results, Start date: 01/02/18 18:41:00 TRAINING PROJECT MANAGER, Duration: 30 day, Stop date: 02/01/18 18:40:00 TRAINING PROJECT MANAGER Notes: (Same as: Humalog ) Roll in palms of hands gently; Do not shake `vigorously. "Single Patient Use Only " WASTE: F/P - Black; E - [employer] Trash Bin Stable for 28 days at room temperature. Expires in days from Date No Longer Active 01/03/2018 [facility] Dextrose 50% Syringe 25 gm, 50 mL, Route: IVP, Drug Form: INJ, Dosing Weight 60.909, kg, PRN, PRN Blood Glucose Results, Start date: 01/02/18 18:41:00 TRAINING PROJECT MANAGER, Duration: 30 day, Stop date: 02/01/18 18:40:00 TRAINING PROJECT MANAGER No Longer Active 01/03/2018 [facility] Glucagon 1 mg, Route: IM, Drug form: PDR/INJ, PRN, Dosing Weight 60.909, kg, PRN Blood Glucose Results, Start date: 01/02/18 18:41:00 TRAINING PROJECT MANAGER, Duration: 30 day, Stop date: 02/01/18 18:40:00 TRAINING PROJECT MANAGER No Longer Active 01/03/2018 [facility] Insulin Lispro 5 unit, 0.05 mL, Route: SUB-Q, Drug form: SOLN, ONCE, Dosing Weight 60.909, kg, Start date: 01/02/18 4:18:00 TRAINING PROJECT MANAGER, Stop date: 01/02/18 4:18:00 CSTNotes: (Same as: Humalog ) Roll in palms of hands gent ly; Do not shake `vigorously. "Single Patient Use Only " WASTE: F/P - Black; E - [employer] Trash Bin Stable for 28 days at room temperature. Expires in days from Date Inactive 01/02/2018 [facility] heparin 5,000 unit, 1 mL, Route: SUB-Q, Drug form: INJ, Q12H, Dosing Weight 60.909, kg, Start date: 01/01/18 21:00:00 TRAINING PROJECT MANAGER, Duration: 30 day, Stop date: 01/31/18 9:00:00 CSTNotes: porcine heparin No Longer Active 01/02/2018 [facility] Clonidine Hydrochloride 0.1 MG Oral Tablet 0.1 mg, 1 tab, Route: PO, Drug form: TAB, Q8H, Dosing Weight 60.909, kg, PRN Hypertension, Start date: 01/01/18 14:49:00 TRAINING PROJECT MANAGER, Duration: 30 day, Stop date: 01/31/18 14:48:00 TRAINING PROJECT MANAGER, SBP >160Notes: (Same As: Catapres) No Longer Active 01/01/2018 [facility] Zofran 4 mg, 2 mL, Route: IVP, Drug form: INJ, Q8H, Dosing Weight 60.909, kg, PRN as needed for nausea/vomiting, Priority: STAT, Start date: 01/01/18 14:49:00 TRAINING PROJECT MANAGER, Duration: 30 day, Stop date: 01/31/18 14:48:00 CSTNotes: (Same as: Zofran) MEDICATION WASTE Product Size: 4 mg Product Wasted: ___ mg No Longer Active 01/01/2018 [facility] Insulin Lispro 4 unit, 0.04 mL, Route: SUB-Q, Drug form: SOLN, Bedtime, Dosing Weight 60.909, kg, PRN Blood Glucose Results, Start date: 01/01/18 14:47:00 TRAINING PROJECT MANAGER, Duration: 30 day, Stop date: 01/31/18 14:46:00 CSTNotes: (Same as: Humalog ) Roll in palms of hands gently; Do not shake `vigorously. "Single Patient Use Only " WASTE: F/P - Black; E - [employer] Trash Bin Stable for 28 days at room temperature. Expires in days from Date No Longer Active 01/01/2018 [facility] Glucagon 1 mg, Route: IM, Drug form: PDR/INJ, PRN, Dosing Weight 60.909, kg, PRN Blood Glucose Results, Start date: 01/01/18 14:47:00 TRAINING PROJECT MANAGER, Duration: 30 day, Stop date: 01/31/18 14:46:00 TRAINING PROJECT MANAGER No Longer Active 01/01/2018 [facility] Dextrose 50% Syringe 12.5 gm, 25 mL, Route: IVP, Drug Form: INJ, Dosing Weight 60.909, kg, PRN, PRN Blood Glucose Results, Start date: 01/01/18 14:47:00 TRAINING PROJECT MANAGER, Duration: 30 day, Stop date: 01/31/18 14:46:00 TRAINING PROJECT MANAGER No Longer Active 01/01/2018 [facility] sodium bicarbonate 8.4% additive 75 mEq + D5W 1/2NS 1,000 mL 1,000 mL, Rate: 125 ml/hr, Infuse over: 8.6 hr, Route: IV, Dosing Weight 60.909 kg, Total Volume: 1,075, Start date: 01/01/18 12:45:00 TRAINING PROJECT MANAGER, Duration: 30 day, Stop date: 01/31/18 12:44:00 TRAINING PROJECT MANAGER, 1.6, n5Lpgdz: (sodium bicarb 8.4% (1 mEq/ml) 50 ml VL) No Longer Active 01/01/2018 [facility] NS 500 mL 500 mL, Rate: 1,000 ml/hr, Infuse over: 0.5 hr, Route: IV, Dosing Weight 60.909 kg, Total Volume: 500, Start date: 01/01/18 12:45:00 TRAINING PROJECT MANAGER, Duration: 1 doses or times, Stop date: 01/01/18 13:14:00 TRAINING PROJECT MANAGER, Bolus Dose, 1.6, m2 Inactive 01/01/2018 [facility] Dilaudid 1 mg, 1 mL, Route: IV, Drug form: SOLN, Q12H, Dosing Weight 60.909, kg, PRN Dressing Change, Start date: 01/01/18 10:26:00 TRAINING PROJECT MANAGER, Stop date: 01/31/18 9:26:00 CSTNotes: (Same as: Dilaudid) No Longer Active 01/01/2018 [facility] Acetaminophen 325 MG / Hydrocodone Bitartrate 10 MG Oral Tablet [[place] 10/325] 1 tab, Route: PO, Drug Form: TAB, Dosing Weight 60.909, kg, Q6H, PRN Pain Score 4-6, Start date: 01/01/18 10:26:00 TRAINING PROJECT MANAGER, Duration: 30 day, Stop date: 01/31/18 10:25:00 CSTNotes: Do not exceed 4gm/day of acetaminophen. (Same as: [place] 325/10) No Longer Active 01/01/2018 [facility] Dilaudid 1 mg, 1 mL, Route: IV, Drug form: SOLN, Q6H, Dosing Weight 60.909, kg, PRN Pain Score 4-6, Start date: 01/01/18 8:31:00 TRAINING PROJECT MANAGER, Stop date: 01/31/18 11:00:00 CSTNotes: (Same as: Dilaudid) Inactive 01/01/2018 [facility] Allergies, Adverse Reactions, Alerts Substance Category Reaction Severity Reaction type Status Date Reported Comments Source ibuprofen Assertion Drug allergy Active [facility] Motrin Assertion Drug allergy Active [facility] Immunizations No Data Provided for This Section Results Order Name Results Value Reference Range Date Interpretation Comments Source ELECTROLYTES AGAP 11.2 10.0 - 20.0 03/05/2018 [facility] ELECTROLYTES Sodium Lvl 134 135 - 145 03/05/2018 [facility] ELECTROLYTES Potassium Lvl 3.2 3.5 - 5.1 03/05/2018 [facility] ELECTROLYTES Chloride Lvl 93 95 - 109 03/05/2018 [facility] ELECTROLYTES eGFR 23 03/05/2018 Result Comment: [...] should be multiplied by the estimated BMI. [facility] ELECTROLYTES Calcium Lvl 7.8 8.5 - 10.5 03/05/2018 [facility] ELECTROLYTES Creatinine Lvl 2.18 0.50 - 1.40 03/05/2018 [facility] ELECTROLYTES CO2 33 24 - 32 03/05/2018 [facility] ELECTROLYTES Glucose Lvl 117 70 - 99 03/05/2018 [facility] ELECTROLYTES BUN 41 7 - 22 03/05/2018 [facility] HEMATOLOGY MCH 29.8 27.0 - 31.0 03/05/2018 [facility] HEMATOLOGY MCV 90.3 80.0 - 98.0 03/05/2018 [facility] HEMATOLOGY Hct 29.1 36.0 - 48.0 03/05/2018 [facility] MPV 6.8 7.4 - 10.4 03/05/2018 [facility] HEMATOLOGY Platelet 295 133 - 450 03/05/2018 [facility] HEMATOLOGY RDW 16.3 11.5 - 14.5 03/05/2018 [facility] HEMATOLOGY RBC 3.23 4.20 - 5.40 03/05/2018 [facility] HEMATOLOGY WBC 8.5 3.7 - 10.4 03/05/2018 [facility] Hgb 9.6 12.0 - 16.0 03/05/2018 [facility] MCHC 33.0 32.0 - 36.0 03/05/2018 [facility] CHEM PANEL Glucose Lvl 150 70 - 99 03/04/2018 [facility] CHEM PANEL BUN 50 7 - 22 03/04/2018 [facility] CHEM PANEL Calcium Lvl 7.5 8.5 - 10.5 03/04/2018 [facility] CHEM PANEL Chloride Lvl 93 95 - 109 03/04/2018 [facility] CHEM PANEL CO2 30 24 - 32 03/04/2018 [facility] CHEM PANEL AGAP 15.7 10.0 - 20.0 03/04/2018 [facility] CHEM PANEL eGFR 20 03/04/2018 Result [...] Sodium Lvl 135 135 - 145 03/04/2018 [facility] CHEM PANEL Potassium Lvl 3.7 3.5 - 5.1 03/04/2018 [facility] CHEM PANEL Creatinine Lvl 2.41 0.50 - 1.40 03/04/2018 [facility] CHEM PANEL eGFR 14 03/03/2018 Result [...] Glucose Lvl 211 70 - 99 03/03/2018 [facility] CHEM PANEL Creatinine Lvl 3.34 0.50 - 1.40 03/03/2018 [facility] CHEM PANEL Potassium Lvl 3.5 3.5 - 5.1 03/03/2018 [facility] CHEM PANEL Sodium Lvl 134 135 - 145 03/03/2018 [facility] CHEM PANEL Chloride Lvl 88 95 - 109 03/03/2018 [facility] CHEM PANEL Calcium Lvl 8.3 8.5 - 10.5 03/03/2018 [facility] CHEM PANEL CO2 31 24 - 32 03/03/2018 [facility] CHEM PANEL AGAP 18.5 10.0 - 20.0 03/03/2018 [facility] CHEM PANEL Magnesium Lvl 2.8 1.8 - 2.4 03/01/2018 [facility] CHEM PANEL Phosphorus 3.5 2.5 - 4.5 03/01/2018 [facility] PARATHYROID PROFILE Ca Ion WB 1.15 1.05 - 1.25 03/01/2018 [facility] PARATHYROID PROFILE Ca Norm WB 1.15 1.05 - 1.25 03/01/2018 [facility] CHEM PANEL Phosphorus 4.2 2.5 - 4.5 02/28/2018 [facility] CHEM PANEL Magnesium Lvl 0.5 1.8 - 2.4 02/28/2018 Result Comment: Critical Result(s) called to Pushpa Hester at 02/28/2018 10:16 by DMF. Read back OK. [facility] CHEM PANEL Phosphorus 2.1 2.5 - 4.5 02/28/2018 [facility] CHEM PANEL Magnesium Lvl <0.3 1.8 - 2.4 02/28/2018 Result Comment: Critical Result(s) called to RN. Milly Thao at 02/28/2018 05:40 by drt. Read back OK. [facility] CHEM PANEL Vitamin D, 25-OH, Total 24.8 30.0 - 100.0 02/27/2018 [facility] PARATHYROID PROFILE PTH Intact 50.3 18.4 - 80.1 02/27/2018 [facility] HEMATOLOGY Lymphocytes # 2.3 1.0 - 5.5 02/27/2018 [facility] HEMATOLOGY Basophils # 0.1 0.0 - 0.2 02/27/2018 [facility] HEMATOLOGY Monocytes # 1.0 0.0 - 0.8 02/27/2018 [facility] HEMATOLOGY Eosinophils # 0.2 0.0 - 0.5 02/27/2018 [facility] HEMATOLOGY Neutrophils # 5.2 1.5 - 8.1 02/27/2018 [facility] HEMATOLOGY Basophils 1.0 0.0 - 1.0 02/27/2018 [facility] HEMATOLOGY Eosinophils 2.0 0.0 - 4.0 02/27/2018 [facility] HEMATOLOGY Lymphocytes 26.5 20.0 - 40.0 02/27/2018 [facility] HEMATOLOGY Monocytes 11.6 2.0 - 12.0 02/27/2018 [facility] HEMATOLOGY Segs 58.9 45.0 - 75.0 02/27/2018 [facility] HEMATOLOGY MCHC 32.6 32.0 - 36.0 02/27/2018 [facility] HEMATOLOGY MPV 6.9 7.4 - 10.4 02/27/2018 [facility] HEMATOLOGY Platelet 382 133 - 450 02/27/2018 [facility] HEMATOLOGY RDW 16.5 11.5 - 14.5 02/27/2018 [facility] HEMATOLOGY MCH 29.5 27.0 - 31.0 02/27/2018 [facility] HEMATOLOGY MCV 90.4 80.0 - 98.0 02/27/2018 [facility] HEMATOLOGY RBC 3.24 4.20 - 5.40 02/27/2018 [facility] HEMATOLOGY WBC 8.8 3.7 - 10.4 02/27/2018 [facility] HEMATOLOGY Hct 29.3 36.0 - 48.0 02/27/2018 [facility] HEMATOLOGY Hgb 9.6 12.0 - 16.0 02/27/2018 [facility] HEMATOLOGY MCV 88.6 80.0 - 98.0 02/26/2018 [facility] HEMATOLOGY MCH 29.8 27.0 - 31.0 02/26/2018 [facility] HEMATOLOGY MCHC 33.7 32.0 - 36.0 02/26/2018 [facility] HEMATOLOGY MPV 6.5 7.4 - 10.4 02/26/2018 [facility] HEMATOLOGY Hct 25.7 36.0 - 48.0 02/26/2018 [facility] HEMATOLOGY Platelet 432 133 - 450 02/26/2018 [facility] HEMATOLOGY RDW 16.1 11.5 - 14.5 02/26/2018 [facility] HEMATOLOGY WBC 9.9 3.7 - 10.4 02/26/2018 [facility] HEMATOLOGY RBC 2.91 4.20 - 5.40 02/26/2018 [facility] HEMATOLOGY Hgb 8.7 12.0 - 16.0 02/26/2018 [facility] LIPIDS Chol 106 <=199 mg/dL 02/26/2018 [facility] LIPIDS Trig 220 <=149 mg/dL 02/26/2018 [facility] LIPIDS HDL 34 >=61 mg/dL 02/26/2018 [facility] LIPIDS LDL (Calculated) 28 <=99 mg/dL 02/26/2018 [facility] LIPIDS VLDL 44 02/26/2018 [facility] LIPIDS CHD Risk 3.12 3.90 - 5.80 02/26/2018 [facility] SPECIAL CHEMISTRY Hgb A1C 6.6 <=5.6 % 02/26/2018 [facility] URINE AND STOOL UA RBC 132 0 - 2 02/26/2018 [facility] URINE AND STOOL UA Sq Epi Many /LPF Few /LPF 02/26/2018 [facility] URINE AND STOOL UA WBC >182 0 - 5 02/26/2018 [facility] URINE AND STOOL UA Bacteria Occasional /HPF None Seen /HPF 02/26/2018 [facility] URINE AND STOOL UA Mucus Few /LPF None Seen /LPF 02/26/2018 [facility] URINE AND STOOL UA Nitrite Negative (02/25/18 11:35 PM) Negative 02/26/2018 [facility] URINE AND STOOL UA Leuk Est Small *ABN* (02/25/18 11:35 PM) Negative 02/26/2018 [facility] URINE AND STOOL UA Urobilinogen 0.2 0.1 - 1.0 02/26/2018 [facility] URINE AND STOOL UA Protein 100 mg/dL Negative mg/dL 02/26/2018 [facility] URINE AND STOOL UA Color Yellow *NA* (02/25/18 11:35 PM) Yellow 02/26/2018 [facility] URINE AND STOOL UA Turbidity Cloudy *ABN* (02/25/18 11:35 PM) Clear 02/26/2018 [facility] URINE AND STOOL UA pH 5.5 5.0 - 8.0 02/26/2018 [facility] URINE AND STOOL UA Spec Grav >=1.030 *ABN* (02/25/18 11:35 PM) <=1.030 02/26/2018 [facility] URINE AND STOOL UA Blood Large *ABN* (02/25/18 11:35 PM) Negative 02/26/2018 [facility] URINE AND STOOL UA Glucose 100 mg/dL Negative mg/dL 02/26/2018 [facility] URINE AND STOOL UA Bili Moderate *ABN* (02/25/18 11:35 PM) Negative 02/26/2018 [facility] URINE AND STOOL UA Ketones Trace *ABN* (02/25/18 11:35 PM) Negative 02/26/2018 [facility] URINE CHEM U Creatinine 213.00 02/26/2018 [facility] URINE CHEM U Sodium 6 02/26/2018 [facility] Culture: Urine Specimen contains 3 or more potential pathogens; recommend correlation with urinalysis; if catheterized specimen recommend removal and recollection. If clinical situation warrants please call the laboratory for further testing. [facility] [phone]. 02/26/2018 [facility] HEMATOLOGY Monocytes # 0.9 0.0 - 0.8 02/26/2018 [facility] HEMATOLOGY Basophils # 0.1 0.0 - 0.2 02/26/2018 [facility] HEMATOLOGY Lymphocytes # 1.7 1.0 - 5.5 02/26/2018 [facility] HEMATOLOGY Neutrophils # 10.8 1.5 - 8.1 02/26/2018 [facility] HEMATOLOGY Basophils 0.6 0.0 - 1.0 02/26/2018 [facility] HEMATOLOGY RBC Morph Normal (02/25/18 6:29 PM) 02/26/2018 [facility] HEMATOLOGY Plt Morph Normal (02/25/18 6:29 PM) 02/26/2018 [facility] HEMATOLOGY Segs 80.6 45.0 - 75.0 02/26/2018 [facility] Monocytes 6.4 2.0 - 12.0 02/26/2018 [facility] HEMATOLOGY Eosinophils 0.1 0.0 - 4.0 02/26/2018 [facility] Lymphocytes 12.3 20.0 - 40.0 02/26/2018 [facility] CHEM PANEL A/G Ratio 0.5 0.7 - 1.6 02/25/2018 [facility] CHEM PANEL Albumin Lvl 2.1 3.5 - 5.0 02/25/2018 [facility] CHEM PANEL Globulin 4.5 2.7 - 4.2 02/25/2018 [facility] CHEM PANEL Total Protein 6.6 6.4 - 8.4 02/25/2018 [facility] CHEM PANEL AST 22 0 - 37 02/25/2018 [facility] CHEM PANEL Alk Phos 70 39 - 136 02/25/2018 [facility] CHEM PANEL Bili Total 0.3 0.2 - 1.3 02/25/2018 [facility] CHEM PANEL ALT 11 0 - 65 02/25/2018 [facility] CHEM PANEL B/C Ratio 20 6 - 25 02/25/2018 [facility] CHEM PANEL Lactic Acid Lvl 1.1 0.5 - 2.2 02/25/2018 [facility] CHEM PANEL Procalcitonin Lvl 0.30 0.00 - 0.10 02/25/2018 [facility] URINE AND STOOL UA Protein 100 mg/dL Negative mg/dL 02/25/2018 [facility] URINE AND STOOL UA Glucose Negative (02/25/18 3:19 PM) Negative 02/25/2018 [facility] URINE AND STOOL UA Bili Small *ABN* (02/25/18 3:19 PM) Negative 02/25/2018 [facility] URINE AND STOOL UA Urobilinogen 0.2 0.1 - 1.0 02/25/2018 [facility] URINE AND STOOL UA Ketones Trace [...] UA pH 5.5 5.0 - 8.0 02/25/2018 [facility] URINE AND STOOL UA Bacteria Moderate /HPF None Seen /HPF 02/25/2018 [facility] URINE AND STOOL UA Mucus Few /LPF None Seen /LPF 02/25/2018 [facility] URINE AND STOOL UA WBC >182 /HPF 0 - 5 02/25/2018 [facility] URINE AND STOOL UA Leuk Est Moderate *ABN* (02/25/18 3:19 PM) Negative 02/25/2018 [facility] URINE AND STOOL UA Sq Epi Occasional /LPF Few /LPF 02/25/2018 [facility] URINE AND STOOL UA Nitrite Negative (02/25/18 3:19 PM) Negative 02/25/2018 [facility] URINE AND STOOL UA RBC 3-5 /HPF 0 - 2 02/25/2018 [facility] URINE AND STOOL UA Color See Note 6 (02/25/18 3:19 PM) Yellow 02/25/2018 Result Comment: Urine color is white(mucus)on 02/25/2018 16:39 by Jerome. [facility] CHEM PANEL Lipase Lvl 78 73 - 393 02/25/2018 [facility] CHEM PANEL Amylase Lvl 24 25 - 115 02/25/2018 [facility] HEMATOLOGY PTT 39.4 22.9 - 35.8 02/25/2018 [facility] HEMATOLOGY INR 1.20 0.85 - 1.17 02/25/2018 [facility] HEMATOLOGY PT 15.0 12.0 - 14.7 02/25/2018 [facility] HEMATOLOGY Basophils # 0.1 0.0 - 0.2 02/25/2018 [facility] HEMATOLOGY Lymphocytes # 1.6 1.0 - 5.5 02/25/2018 [facility] HEMATOLOGY Eosinophils # 0.1 0.0 - 0.5 02/25/2018 [facility] HEMATOLOGY Monocytes # 1.2 0.0 - 0.8 02/25/2018 [facility] HEMATOLOGY Neutrophils # 13.7 1.5 - 8.1 02/25/2018 [facility] HEMATOLOGY Basophils 0.7 0.0 - 1.0 02/25/2018 [facility] HEMATOLOGY Eosinophils 0.4 0.0 - 4.0 02/25/2018 [facility] HEMATOLOGY Lymphocytes 9.4 20.0 - 40.0 02/25/2018 [facility] HEMATOLOGY Segs 82.5 45.0 - 75.0 02/25/2018 [facility] HEMATOLOGY Monocytes 7.0 2.0 - 12.0 02/25/2018 [facility] CHEM PANEL AST 21 0 - 37 02/25/2018 [facility] CHEM PANEL Alk Phos 87 39 - 136 02/25/2018 [facility] CHEM PANEL Bili Total 0.4 0.2 - 1.3 02/25/2018 [facility] CHEM PANEL ALT 13 0 - 65 02/25/2018 [facility] CHEM PANEL A/G Ratio 0.5 0.7 - 1.6 02/25/2018 [facility] CHEM PANEL B/C Ratio 17 6 - 25 02/25/2018 [facility] CHEM PANEL Total Protein 8.4 6.4 - 8.4 02/25/2018 [facility] CHEM PANEL Albumin Lvl 2.8 3.5 - 5.0 02/25/2018 [facility] CHEM PANEL Globulin 5.6 2.7 - 4.2 02/25/2018 [facility] ELECTROLYTES AGAP 15.6 10.0 - 20.0 02/13/2018 [facility] ELECTROLYTES Calcium Lvl 6.9 8.5 - 10.5 02/13/2018 Result Comment: Critical Result(s) called to Ilana Aguayo at 02/13/2018 07:53 by DMF. Read back OK. [facility] ELECTROLYTES Creatinine Lvl 1.10 0.50 - 1.40 02/13/2018 [facility] ELECTROLYTES Sodium Lvl 144 135 - 145 02/13/2018 [facility] ELECTROLYTES Potassium Lvl 3.6 3.5 - 5.1 02/13/2018 [facility] ELECTROLYTES CO2 19 24 - 32 02/13/2018 [facility] ELECTROLYTES Chloride Lvl 113 95 - 109 02/13/2018 [facility] ELECTROLYTES Glucose Lvl 299 70 - 99 02/13/2018 [facility] ELECTROLYTES BUN 11 7 - 22 02/13/2018 [facility] ELECTROLYTES eGFR 52 02/13/2018 Result Comment: [...] should be multiplied by the estimated BMI. [facility] CHEM PANEL Phosphorus 2.9 2.5 - 4.5 02/11/2018 [facility] CHEM PANEL eGFR 61 02/11/2018 Result [...] should be multiplied by the estimated BMI. [facility] CHEM PANEL Chloride Lvl 118 95 - 109 02/11/2018 [facility] CHEM PANEL Potassium Lvl 3.6 3.5 - 5.1 02/11/2018 [facility] CHEM PANEL AGAP 12.6 10.0 - 20.0 02/11/2018 [facility] CHEM PANEL CO2 15 24 - 32 02/11/2018 [facility] CHEM PANEL Calcium Lvl 6.5 8.5 - 10.5 02/11/2018 Result Comment: Critical Result(s) called to kelly [email or web address] at 02/11/2018 07:06 by EFA. Read back OK. [facility] CHEM PANEL Glucose Lvl 80 70 - 99 02/11/2018 [facility] CHEM PANEL Sodium Lvl 142 135 - 145 02/11/2018 [facility] CHEM PANEL Creatinine Lvl 0.96 0.50 - 1.40 02/11/2018 [facility] CHEM PANEL BUN 8 7 - 22 02/11/2018 [facility] HEMATOLOGY Monocytes # 0.7 0.0 - 0.8 02/11/2018 [facility] HEMATOLOGY Eosinophils # 0.2 0.0 - 0.5 02/11/2018 [facility] HEMATOLOGY Segs 56.2 45.0 - 75.0 02/11/2018 [facility] HEMATOLOGY Lymphocytes 30.3 20.0 - 40.0 02/11/2018 [facility] HEMATOLOGY Monocytes 10.1 2.0 - 12.0 02/11/2018 [facility] HEMATOLOGY Eosinophils 2.9 0.0 - 4.0 02/11/2018 [facility] HEMATOLOGY Neutrophils # 3.9 1.5 - 8.1 02/11/2018 [facility] HEMATOLOGY Basophils 0.5 0.0 - 1.0 02/11/2018 [facility] HEMATOLOGY Lymphocytes # 2.1 1.0 - 5.5 02/11/2018 [facility] HEMATOLOGY MPV 7.0 7.4 - 10.4 02/11/2018 [facility] HEMATOLOGY MCHC 33.0 32.0 - 36.0 02/11/2018 [facility] HEMATOLOGY RDW 15.4 11.5 - 14.5 02/11/2018 [facility] HEMATOLOGY Platelet 264 133 - 450 02/11/2018 [facility] HEMATOLOGY WBC 7.0 3.7 - 10.4 02/11/2018 [facility] HEMATOLOGY RBC 2.55 4.20 - 5.40 02/11/2018 [facility] HEMATOLOGY Hgb 7.5 12.0 - 16.0 02/11/2018 [facility] HEMATOLOGY Hct 22.6 36.0 - 48.0 02/11/2018 [facility] HEMATOLOGY MCV 88.6 80.0 - 98.0 02/11/2018 [facility] HEMATOLOGY MCH 29.3 27.0 - 31.0 02/11/2018 [facility] URINE AND STOOL UA pH 6.0 5.0 - 8.0 02/08/2018 [facility] URINE AND STOOL UA Urobilinogen <=1.0 mg/dL 0.1 - 1.0 02/08/2018 [facility] URINE AND STOOL UA Spec Grav 1.017 <=1.030 02/08/2018 [facility] URINE AND STOOL UA Turbidity Marked *ABN* (02/07/18 10:19 PM) Clear 02/08/2018 [facility] URINE AND STOOL UA Color Yellow *NA* (02/07/18 10:19 PM) Yellow 02/08/2018 [facility] URINE AND STOOL UA Blood Negative (02/07/18 10:19 PM) Negative 02/08/2018 [facility] URINE AND STOOL UA Glucose 50 mg/dL Negative mg/dL 02/08/2018 [facility] URINE AND STOOL UA Ketones Negative *NA* (02/07/18 10:19 PM) Negative 02/08/2018 [facility] URINE AND STOOL UA Protein >=300 mg/dL Negative mg/dL 02/08/2018 [facility] URINE AND STOOL UA Bili Negative *NA* (02/07/18 10:19 PM) Negative 02/08/2018 [facility] URINE AND STOOL UA Leuk Est Large *ABN* (02/07/18 10:19 PM) Negative 02/08/2018 [facility] URINE AND STOOL Micro? Performed (02/07/18 10:19 PM) 02/08/2018 [facility] URINE AND STOOL UA Nitrite Negative (02/07/18 10:19 PM) Negative 02/08/2018 [facility] URINE AND STOOL UA Sq Epi Occasional /LPF Few /LPF 02/08/2018 [facility] URINE AND STOOL UA Bacteria Few /HPF None Seen /HPF 02/08/2018 [facility] URINE AND STOOL UA RBC 10 0 - 2 02/08/2018 [facility] URINE AND STOOL UA WBC >182 0 - 5 02/08/2018 [facility] Culture: Urine No Growth 02/08/2018 [facility] CHEM PANEL eGFR 38 02/05/2018 Result [...] should be multiplied by the estimated BMI. [facility] CHEM PANEL BUN 13 7 - 22 02/05/2018 [facility] CHEM PANEL Creatinine Lvl 1.42 0.50 - 1.40 02/05/2018 [facility] CHEM PANEL Glucose Lvl 112 70 - 99 02/05/2018 [facility] CHEM PANEL Calcium Lvl 7.6 8.5 - 10.5 02/05/2018 [facility] CHEM PANEL Sodium Lvl 140 135 - 145 02/05/2018 [facility] CHEM PANEL Potassium Lvl 3.6 3.5 - 5.1 02/05/2018 [facility] CHEM PANEL AGAP 13.6 10.0 - 20.0 02/05/2018 [facility] CHEM PANEL CO2 28 24 - 32 02/05/2018 [facility] CHEM PANEL Chloride Lvl 102 95 - 109 02/05/2018 [facility] HEMATOLOGY WBC 7.6 3.7 - 10.4 02/04/2018 [facility] HEMATOLOGY RBC 2.76 4.20 - 5.40 02/04/2018 [facility] MCHC 33.5 32.0 - 36.0 02/04/2018 [facility] MCH 29.4 27.0 - 31.0 02/04/2018 [facility] Hct 24.2 36.0 - 48.0 02/04/2018 [facility] HEMATOLOGY Hgb 8.1 12.0 - 16.0 02/04/2018 [facility] MCV 87.8 80.0 - 98.0 02/04/2018 [facility] RDW 14.8 11.5 - 14.5 02/04/2018 [facility] Platelet 355 133 - 450 02/04/2018 [facility] MPV 6.9 7.4 - 10.4 02/04/2018 [facility] Lymphocytes # 1.7 1.0 - 5.5 02/04/2018 [facility] Monocytes # 0.5 0.0 - 0.8 02/04/2018 [facility] HEMATOLOGY Basophils 0.6 0.0 - 1.0 02/04/2018 [facility] HEMATOLOGY Neutrophils # 5.2 1.5 - 8.1 02/04/2018 [facility] HEMATOLOGY Lymphocytes 22.7 20.0 - 40.0 02/04/2018 [facility] HEMATOLOGY Monocytes 6.9 2.0 - 12.0 02/04/2018 [facility] HEMATOLOGY Segs 68.6 45.0 - 75.0 02/04/2018 [facility] HEMATOLOGY Eosinophils 1.2 0.0 - 4.0 02/04/2018 [facility] HEMATOLOGY Eosinophils # 0.1 0.0 - 0.5 02/04/2018 [facility] URINE CHEM U Creatinine 114.00 02/01/2018 [facility] URINE CHEM U Sodium 10 02/01/2018 [facility] HEMATOLOGY MPV 7.8 7.4 - 10.4 02/01/2018 [facility] HEMATOLOGY Platelet 303 133 - 450 02/01/2018 [facility] HEMATOLOGY Hgb 8.1 12.0 - 16.0 02/01/2018 [facility] HEMATOLOGY Hct 24.4 36.0 - 48.0 02/01/2018 [facility] HEMATOLOGY WBC 11.4 3.7 - 10.4 02/01/2018 [facility] HEMATOLOGY RBC 2.72 4.20 - 5.40 02/01/2018 [facility] HEMATOLOGY MCV 89.7 80.0 - 98.0 02/01/2018 [facility] HEMATOLOGY MCH 29.8 27.0 - 31.0 02/01/2018 [facility] HEMATOLOGY MCHC 33.3 32.0 - 36.0 02/01/2018 [facility] HEMATOLOGY RDW 15.5 11.5 - 14.5 02/01/2018 [facility] HEMATOLOGY Basophils # 0.1 0.0 - 0.2 02/01/2018 [facility] HEMATOLOGY Eosinophils # 0.2 0.0 - 0.5 02/01/2018 [facility] HEMATOLOGY Neutrophils # 8.2 1.5 - 8.1 02/01/2018 [facility] HEMATOLOGY Lymphocytes # 2.1 1.0 - 5.5 02/01/2018 [facility] HEMATOLOGY Monocytes # 0.8 0.0 - 0.8 02/01/2018 [facility] HEMATOLOGY Basophils 1.2 0.0 - 1.0 02/01/2018 [facility] HEMATOLOGY Eosinophils 1.5 0.0 - 4.0 02/01/2018 [facility] HEMATOLOGY Lymphocytes 18.5 20.0 - 40.0 02/01/2018 [facility] HEMATOLOGY Monocytes 6.7 2.0 - 12.0 02/01/2018 [facility] HEMATOLOGY Segs 72.1 45.0 - 75.0 02/01/2018 [facility] CHEM PANEL Magnesium Lvl 2.5 1.8 - 2.4 01/27/2018 [facility] CHEM PANEL Phosphorus 3.4 2.5 - 4.5 01/27/2018 [facility] CHEM PANEL Magnesium Lvl 1.5 1.8 - 2.4 01/26/2018 [facility] CHEM PANEL Phosphorus 2.1 2.5 - 4.5 01/26/2018 [facility] CHEM PANEL Magnesium Lvl 1.6 1.8 - 2.4 01/25/2018 [facility] LIPIDS Trig 361 <=149 mg/dL 01/25/2018 [facility] HEMATOLOGY Basophils # 0.1 0.0 - 0.2 01/24/2018 [facility] HEMATOLOGY Plt Morph Normal (01/23/18 6:15 AM) 01/23/2018 [facility] HEMATOLOGY RBC Morph Normal (01/23/18 6:15 AM) 01/23/2018 [facility] HEMATOLOGY INR 1.16 0.85 - 1.17 01/22/2018 [facility] HEMATOLOGY PT 14.6 12.0 - 14.7 01/22/2018 [facility] HEMATOLOGY PTT 29.1 22.9 - 35.8 01/22/2018 [facility] CHEM PANEL Lipase Lvl 345 73 - 393 01/22/2018 [facility] CHEM PANEL Alk Phos 79 39 - 136 01/22/2018 [facility] CHEM PANEL ALT 11 0 - 65 01/22/2018 [facility] CHEM PANEL Bili Total 0.6 0.2 - 1.3 01/22/2018 [facility] CHEM PANEL AST 13 0 - 37 01/22/2018 [facility] CHEM PANEL A/G Ratio 0.6 0.7 - 1.6 01/22/2018 [facility] CHEM PANEL B/C Ratio 17 6 - 25 01/22/2018 [facility] CHEM PANEL Albumin Lvl 2.7 3.5 - 5.0 01/22/2018 [facility] CHEM PANEL Total Protein 7.4 6.4 - 8.4 01/22/2018 [facility] CHEM PANEL Globulin 4.7 2.7 - 4.2 01/22/2018 [facility] URINE AND STOOL UA Nitrite Negative (01/21/18 3:14 PM) Negative 01/21/2018 [facility] URINE AND STOOL UA Urobilinogen <=1.0 mg/dL 0.1 - 1.0 01/21/2018 [facility] URINE AND STOOL UA Blood Small *ABN* (01/21/18 3:14 PM) Negative 01/21/2018 [facility] URINE AND STOOL UA Protein 100 mg/dL Negative mg/dL 01/21/2018 [facility] URINE AND STOOL UA Glucose 150 mg/dL Negative mg/dL 01/21/2018 [facility] URINE AND STOOL Micro? Performed (01/21/18 3:14 PM) 01/21/2018 [facility] URINE AND STOOL UA Leuk Est Large *ABN* (01/21/18 3:14 PM) Negative 01/21/2018 [facility] URINE AND STOOL UA Color Maggy 01/21/2018 [facility] URINE AND STOOL UA Bili Negative *NA* (01/21/18 3:14 PM) Negative 01/21/2018 [facility] URINE AND STOOL UA Ketones Trace *ABN* (01/21/18 3:14 PM) Negative 01/21/2018 [facility] URINE AND STOOL UA pH 5.0 5.0 - 8.0 01/21/2018 [facility] URINE AND STOOL UA Spec Grav 1.013 <=1.030 01/21/2018 [facility] URINE AND STOOL UA Turbidity Marked *ABN* (01/21/18 3:14 PM) Clear 01/21/2018 [facility] URINE AND STOOL UA Mucus Few /LPF None Seen /LPF 01/21/2018 [facility] URINE AND STOOL UA [place] Yeast Many /HPF None Seen /HPF 01/21/2018 [facility] URINE AND STOOL UA RBC 52 0 - 2 01/21/2018 [facility] URINE AND STOOL UA WBC >182 0 - 5 01/21/2018 [facility] URINE AND STOOL UA Sq Epi Occasional /LPF Few /LPF 01/21/2018 [facility] URINE CHEM U Creatinine 114.00 01/21/2018 [facility] URINE CHEM U Sodium 41 01/21/2018 [facility] CARDIAC ENZYMES BNP 53 <=100 pg/mL 01/21/2018 [facility] HEMATOLOGY INR 1.24 0.85 - 1.17 01/21/2018 [facility] HEMATOLOGY PT 15.4 12.0 - 14.7 01/21/2018 [facility] HEMATOLOGY PTT 35.1 22.9 - 35.8 01/21/2018 [facility] URINE AND STOOL UA RBC 4 0 - 2 01/21/2018 [facility] URINE AND STOOL UA Sq Epi [...] Slight *ABN* (01/21/18 6:50 AM) Clear 01/21/2018 [facility] URINE AND STOOL UA pH 6.5 5.0 - 8.0 01/21/2018 [facility] URINE AND STOOL UA Leuk Est Negative (01/21/18 6:50 AM) Negative 01/21/2018 [facility] URINE AND STOOL UA Nitrite Negative (01/21/18 6:50 AM) Negative 01/21/2018 [facility] URINE AND STOOL UA Bili Negative *NA* (01/21/18 6:50 AM) Negative 01/21/2018 [facility] URINE AND STOOL UA Blood Negative (01/21/18 6:50 AM) Negative 01/21/2018 [facility] URINE AND STOOL UA Urobilinogen 0.2 0.1 - 1.0 01/21/2018 Result Comment: Urobilinogen performed on the [employer] analyzer. 01/21/2018 07:27 AGUILAR [facility] URINE AND STOOL UA Color Yellow *NA* (01/21/18 6:50 AM) Yellow 01/21/2018 [facility] CARDIAC ENZYMES Troponin-I <0.02 0.00 - 0.40 01/21/2018 [facility] CHEM PANEL Lipase Lvl 577 73 - 393 01/21/2018 [facility] CHEM PANEL Albumin Lvl 3.2 3.5 - 5.0 01/21/2018 [facility] CHEM PANEL Total Protein 8.7 6.4 - 8.4 01/21/2018 [facility] CHEM PANEL Alk Phos 104 39 - 136 01/21/2018 [facility] CHEM PANEL AST 14 0 - 37 01/21/2018 [facility] CHEM PANEL ALT 15 0 - 65 01/21/2018 [facility] CHEM PANEL Bili Total 0.4 0.2 - 1.3 01/21/2018 [facility] CHEM PANEL A/G Ratio 0.6 0.7 - 1.6 01/21/2018 [facility] CHEM PANEL Globulin 5.5 2.7 - 4.2 01/21/2018 [facility] CHEM PANEL B/C Ratio 14 6 - 25 01/21/2018 [facility] HEMATOLOGY Plt Morph Normal (01/21/18 6:39 AM) 01/21/2018 [facility] HEMATOLOGY RBC Morph Normal (01/21/18 6:39 AM) 01/21/2018 [facility] ELECTROLYTES Sodium Lvl 134 135 - 145 01/10/2018 [facility] ELECTROLYTES Potassium Lvl 4.3 3.5 - 5.1 01/10/2018 [facility] ELECTROLYTES Chloride Lvl 99 95 - 109 01/10/2018 [facility] ELECTROLYTES Creatinine Lvl 1.99 0.50 - 1.40 01/10/2018 [facility] ELECTROLYTES Glucose Lvl 126 70 - 99 01/10/2018 [facility] ELECTROLYTES BUN 51 7 - 22 01/10/2018 [facility] ELECTROLYTES eGFR 25 01/10/2018 Result Comment: [...] should be multiplied by the estimated BMI. [facility] ELECTROLYTES CO2 25 24 - 32 01/10/2018 [facility] ELECTROLYTES AGAP 14.3 10.0 - 20.0 01/10/2018 [facility] ELECTROLYTES Calcium Lvl 9.0 8.5 - 10.5 01/10/2018 [facility] MPV 6.8 7.4 - 10.4 01/10/2018 [facility] Hgb 8.7 12.0 - 16.0 01/10/2018 [facility] Hct 26.8 36.0 - 48.0 01/10/2018 [facility] WBC 8.4 3.7 - 10.4 01/10/2018 [facility] Platelet 345 133 - 450 01/10/2018 [facility] RDW 17.9 11.5 - 14.5 01/10/2018 [facility] MCHC 32.5 32.0 - 36.0 01/10/2018 [facility] MCV 89.7 80.0 - 98.0 01/10/2018 [facility] MCH 29.1 27.0 - 31.0 01/10/2018 [facility] RBC 2.99 4.20 - 5.40 01/10/2018 [facility] CHEM PANEL eGFR 38 01/09/2018 Result [...] should be multiplied by the estimated BMI. [facility] CHEM PANEL Chloride Lvl 100 95 - 109 01/09/2018 [facility] CHEM PANEL Potassium Lvl 4.1 3.5 - 5.1 01/09/2018 [facility] CHEM PANEL AGAP 14.1 10.0 - 20.0 01/09/2018 [facility] CHEM PANEL CO2 26 24 - 32 01/09/2018 [facility] CHEM PANEL Calcium Lvl 8.4 8.5 - 10.5 01/09/2018 [facility] CHEM PANEL Glucose Lvl 191 70 - 99 01/09/2018 [facility] CHEM PANEL Sodium Lvl 136 135 - 145 01/09/2018 [facility] CHEM PANEL Creatinine Lvl 1.41 0.50 - 1.40 01/09/2018 [facility] CHEM PANEL BUN 47 7 - 22 01/09/2018 [facility] CHEM PANEL eGFR 39 01/08/2018 Result [...] should be multiplied by the estimated BMI. [facility] CHEM PANEL Calcium Lvl 8.1 8.5 - 10.5 01/08/2018 [facility] CHEM PANEL CO2 28 24 - 32 01/08/2018 [facility] CHEM PANEL Chloride Lvl 96 95 - 109 01/08/2018 [facility] CHEM PANEL Sodium Lvl 134 135 - 145 01/08/2018 [facility] CHEM PANEL Potassium Lvl 3.6 3.5 - 5.1 01/08/2018 [facility] CHEM PANEL BUN 57 7 - 22 01/08/2018 [facility] CHEM PANEL Creatinine Lvl 1.38 0.50 - 1.40 01/08/2018 [facility] CHEM PANEL Glucose Lvl 159 70 - 99 01/08/2018 [facility] CHEM PANEL AGAP 13.6 10.0 - 20.0 01/08/2018 [facility] CHEM PANEL Magnesium Lvl 1.9 1.8 - 2.4 01/08/2018 [facility] CHEM PANEL Phosphorus 4.0 2.5 - 4.5 01/08/2018 [facility] HEMATOLOGY Monocytes # 0.5 0.0 - 0.8 01/08/2018 [facility] HEMATOLOGY Neutrophils # 4.4 1.5 - 8.1 01/08/2018 [facility] HEMATOLOGY Eosinophils # 0.2 0.0 - 0.5 01/08/2018 [facility] HEMATOLOGY Lymphocytes # 2.3 1.0 - 5.5 01/08/2018 [facility] HEMATOLOGY Segs 58.4 45.0 - 75.0 01/08/2018 [facility] HEMATOLOGY Monocytes 6.9 2.0 - 12.0 01/08/2018 [facility] HEMATOLOGY Basophils 0.6 0.0 - 1.0 01/08/2018 [facility] HEMATOLOGY Lymphocytes 30.9 20.0 - 40.0 01/08/2018 [facility] HEMATOLOGY Eosinophils 3.2 0.0 - 4.0 01/08/2018 [facility] HEMATOLOGY Hgb 8.0 12.0 - 16.0 01/08/2018 [facility] HEMATOLOGY RBC 2.70 4.20 - 5.40 01/08/2018 [facility] HEMATOLOGY MCV 89.0 80.0 - 98.0 01/08/2018 [facility] HEMATOLOGY Hct 24.0 36.0 - 48.0 01/08/2018 [facility] HEMATOLOGY WBC 7.6 3.7 - 10.4 01/08/2018 [facility] MCH 29.6 27.0 - 31.0 01/08/2018 [facility] HEMATOLOGY RDW 18.0 11.5 - 14.5 01/08/2018 [facility] HEMATOLOGY MPV 7.4 7.4 - 10.4 01/08/2018 [facility] MCHC 33.2 32.0 - 36.0 01/08/2018 [facility] HEMATOLOGY Platelet 301 133 - 450 01/08/2018 [facility] CHEM PANEL Magnesium Lvl 2.2 1.8 - 2.4 01/07/2018 [facility] CHEM PANEL Phosphorus 5.6 2.5 - 4.5 01/07/2018 [facility] HEMATOLOGY Lymphocytes 26.3 20.0 - 40.0 01/07/2018 [facility] HEMATOLOGY Segs 62.3 45.0 - 75.0 01/07/2018 [facility] HEMATOLOGY Eosinophils 2.3 0.0 - 4.0 01/07/2018 [facility] HEMATOLOGY Monocytes 8.3 2.0 - 12.0 01/07/2018 [facility] HEMATOLOGY Basophils # 0.1 0.0 - 0.2 01/07/2018 [facility] HEMATOLOGY Neutrophils # 6.0 1.5 - 8.1 01/07/2018 [facility] HEMATOLOGY Eosinophils # 0.2 0.0 - 0.5 01/07/2018 [facility] HEMATOLOGY Lymphocytes # 2.5 1.0 - 5.5 01/07/2018 [facility] HEMATOLOGY Basophils 0.8 0.0 - 1.0 01/07/2018 [facility] HEMATOLOGY Monocytes # 0.8 0.0 - 0.8 01/07/2018 [facility] HEMATOLOGY RBC 2.77 4.20 - 5.40 01/07/2018 [facility] MCH 30.0 27.0 - 31.0 01/07/2018 [facility] HEMATOLOGY RDW 17.9 11.5 - 14.5 01/07/2018 [facility] HEMATOLOGY Platelet 285 133 - 450 01/07/2018 [facility] MCHC 33.8 32.0 - 36.0 01/07/2018 [facility] HEMATOLOGY MCV 88.8 80.0 - 98.0 01/07/2018 [facility] Hct 24.6 36.0 - 48.0 01/07/2018 [facility] Hgb 8.3 12.0 - 16.0 01/07/2018 [facility] MPV 6.7 7.4 - 10.4 01/07/2018 [facility] WBC 9.6 3.7 - 10.4 01/07/2018 [facility] CHEM PANEL Phosphorus 3.9 2.5 - 4.5 01/06/2018 [facility] CHEM PANEL Magnesium Lvl 2.0 1.8 - 2.4 01/06/2018 [facility] LIPIDS Trig 408 <=149 mg/dL 01/06/2018 [facility] Culture: Urine Specimen contains 3 or more potential pathogens; recommend correlation with urinalysis; if catheterized specimen recommend removal and recollection. If clinical situation warrants please call the laboratory for further testing. [place] [facility] [phone]. 01/03/2018 [facility] URINE AND STOOL UA Glucose Negative *NA* (01/02/18 6:44 AM) Negative 01/02/2018 [facility] URINE AND STOOL UA pH 5.0 5.0 - 8.0 01/02/2018 [facility] URINE AND STOOL UA Spec Grav 1.014 <=1.030 01/02/2018 [facility] URINE AND STOOL UA Color Yellow *NA* (01/02/18 6:44 AM) Yellow 01/02/2018 [facility] URINE AND STOOL UA Turbidity Marked *ABN* (01/02/18 6:44 AM) Clear 01/02/2018 [facility] URINE AND STOOL UA Protein >=300 mg/dL Negative mg/dL 01/02/2018 [facility] URINE AND STOOL UA Ketones Negative *NA* (01/02/18 6:44 AM) Negative 01/02/2018 [facility] URINE AND STOOL UA Bili Negative *NA* (01/02/18 6:44 AM) Negative 01/02/2018 [facility] URINE AND STOOL UA Bacteria Occasional /HPF None Seen /HPF 01/02/2018 [facility] URINE AND STOOL UA Mucus Few /LPF None Seen /LPF 01/02/2018 [facility] URINE AND STOOL UA WBC >182 0 - 5 01/02/2018 [facility] URINE AND STOOL UA RBC 2 0 - 2 01/02/2018 [facility] URINE AND STOOL UA Urobilinogen <=1.0 mg/dL 0.1 - 1.0 01/02/2018 [facility] URINE AND STOOL UA Nitrite Negative (01/02/18 6:44 AM) Negative 01/02/2018 [facility] URINE AND STOOL UA Blood Small *ABN* (01/02/18 6:44 AM) Negative 01/02/2018 [facility] URINE AND STOOL UA Trans Epi 11 <=0 /LPF 01/02/2018 [facility] URINE AND STOOL UA Leuk Est Large *ABN* (01/02/18 6:44 AM) Negative 01/02/2018 [facility] URINE AND STOOL UA Sq Epi Occasional /LPF Few /LPF 01/02/2018 [facility] URINE CHEM U Sodium 16 01/02/2018 [facility] URINE CHEM U Creatinine 156.00 01/02/2018 [facility] CHEM PANEL Albumin Lvl 2.4 3.5 - 5.0 01/02/2018 [facility] CHEM PANEL Total Protein 6.8 6.4 - 8.4 01/02/2018 [facility] CHEM PANEL B/C Ratio 12 6 - 25 01/02/2018 [facility] CHEM PANEL ALT 12 0 - 65 01/02/2018 [facility] CHEM PANEL A/G Ratio 0.5 0.7 - 1.6 01/02/2018 [facility] CHEM PANEL Globulin 4.4 2.7 - 4.2 01/02/2018 [facility] CHEM PANEL Alk Phos 99 39 - 136 01/02/2018 [facility] CHEM PANEL AST 11 0 - 37 01/02/2018 [facility] CHEM PANEL Bili Total 0.3 0.2 - 1.3 01/02/2018 [facility] HEMATOLOGY Basophils 0.8 0.0 - 1.0 01/02/2018 [facility] HEMATOLOGY Eosinophils 1.2 0.0 - 4.0 01/02/2018 [facility] HEMATOLOGY Lymphocytes # 2.2 1.0 - 5.5 01/02/2018 [facility] HEMATOLOGY Neutrophils # 6.9 1.5 - 8.1 01/02/2018 [facility] HEMATOLOGY Monocytes # 0.6 0.0 - 0.8 01/02/2018 [facility] HEMATOLOGY Basophils # 0.1 0.0 - 0.2 01/02/2018 [facility] HEMATOLOGY Eosinophils # 0.1 0.0 - 0.5 01/02/2018 [facility] HEMATOLOGY Lymphocytes 22.4 20.0 - 40.0 01/02/2018 [facility] Monocytes 6.2 2.0 - 12.0 01/02/2018 [facility] HEMATOLOGY Segs 69.4 45.0 - 75.0 01/02/2018 [facility] IMMUNOLOGY Prealbumin 13.9 18.0 - 45.0 01/02/2018 [facility] LIPIDS Trig 446 <=149 mg/dL 01/02/2018 [facility] CHEM PANEL Albumin Lvl 2.7 3.5 - 5.0 01/01/2018 [facility] CHEM PANEL Total Protein 7.9 6.4 - 8.4 01/01/2018 [facility] CHEM PANEL Alk Phos 118 39 - 136 01/01/2018 [facility] CHEM PANEL Bili Total 0.2 0.2 - 1.3 01/01/2018 [facility] CHEM PANEL AST 17 0 - 37 01/01/2018 [facility] CHEM PANEL ALT 16 0 - 65 01/01/2018 [facility] CHEM PANEL B/C Ratio 12 6 - 25 01/01/2018 [facility] CHEM PANEL A/G Ratio 0.5 0.7 - 1.6 01/01/2018 [facility] CHEM PANEL Globulin 5.2 2.7 - 4.2 01/01/2018 [facility] IMMUNOLOGY Prealbumin 15.3 18.0 - 45.0 01/01/2018 [facility] Pathology Reports No Data Provided for [...] Bilateral renal cortical atrophy. SL: BRANDI 02/25/2018 [facility] Abdomen/Pelvis wo IV contrast CT PROCEDURE: [...] renal cyst. END REPORT MADHAVI: [id number] 02/25/2018 [facility] Forearm 2 views DX Patient Name: JOSÉ MIGUEL MNÉDEZ : 1950; Age: 67 years y/o Female MR: [id number] * RIGHT FOREARM, 2 views History: Right forearm pain. Technique: Frontal and lateral radiographs of the right forearm were obtained. FINDINGS: There is no evidence of fracture, dislocation, or acute change. There are no destructive lesions or other osseous abnormalities. IMPRESSION: 1. Negative right forearm. SL: [id number] 02/08/2018 [facility] Ext Upper Venous Doppler Unilat US [...] the time of dictation. SL: ALBERTA 02/08/2018 [facility] Chest 1view DX Clinical Indication: - fever, tachycardia, chills. Comparison: 01/21/2018 Findings: Frontal view of the chest was obtained. Left internal jugular CVC tip projects over the superior cavoatrial junction. The cardiac silhouette is normal. Atheromatous changes are present in the aorta. There is no lobar consolidation, effusion or edema. No pneumothorax. No acute osseous abnormality. IMPRESSION: No acute cardiopulmonary abnormality. SL: [id number] 02/07/2018 [facility] CVC insert non-tunnel age 5+ yrs VR Patient Name: JOSÉ MIGUEL MÉNDEZ : 1950 Age: 67 years Female MR: [id number] Study: CVC insert non-tunnel age 5+ yrs VR 01/22/2018 11:22 TRAINING PROJECT MANAGER Indication: Need for central venous access. Comparison: [...] catheter utilizing ultrasound and fluoroscopic guidance. SL: [id number] 01/22/2018 [facility] Retroperitoneal Complete US Patient Name: JOSÉ MIGUEL MÉNDEZ : 1950; Age: 67 years Female MR: [id number] Study: Retroperitoneal Complete US 01/21/2018 9:48 TRAINING PROJECT MANAGER Clinical Indication: Renal insufficiency - magi/ckd. . [...] noted. IMPRESSION: 1. No acute abnormality. SL: [id number] 01/21/2018 [facility] Chest/Abdomen/Pelvis wo IV contrast CT Patient Name: JOSÉ MIGUEL MÉNDEZ : 1950 Age: 67 years, Female MR: [id number] Study: Chest/Abdomen/Pelvis wo IV contrast CT 01/21/2018 7:58 TRAINING PROJECT MANAGER Examination: CT chest, abdomen, and pelvis without [...] T8, T12, and L5 vertebral bodies. SL: [id number] 01/21/2018 [facility] Chest 1view DX CHEST RADIOGRAPH SINGLE VIEW INDICATION: Shortness of breath, vomiting COMPARISON: Chest radiograph 08/24/2015 IMPRESSION: No consolidation or other acute intrathoracic abnormalities are visualized. SL:16 01/21/2018 [facility] CVC Replacement VR Patient Name: JOSÉ MIGUEL MÉNDEZ : 1950 Age: 67 years Female MR: [id number] Study: CVC Replacement VR 01/03/2018 3:03 PM TRAINING PROJECT MANAGER Indication: Malfunctioning catheter. Comparison: None. Preoperative diagnosis: [...] a supine position on the fluoroscopy table. Neurosurgical Nurse Practitioner film was obtained which demonstrated a left [...] catheter utilizing ultrasound and fluoroscopic guidance. SL: [id number] 01/03/2018 [facility] Retroperitoneal Complete US PROCEDURE: RENAL ULTRASOUND [...] renal cysts. Otherwise normal exam. WR1-M 01/01/2018 [facility] Abdomen/Pelvis wo IV contrast CT PROCEDURE: [...] additional information. END REPORT SL: VITOR 01/01/2018 [facility] Chest 2 views DX EXAMINATION: Chest, [...] Anemia, unspecified Comparison Exam: None Discussion: On structural shop helper view, there are no dilated loops of [...] Source Temperature Oral (F) 98.1 F 03/05/2018 [facility] Heart Rate 95 03/05/2018 [facility] Systolic (mm Hg) 107 03/05/2018 [facility] Diastolic (mm Hg) 57 03/05/2018 [facility] Temperature Oral (F) 98.0 F 03/05/2018 [facility] Systolic (mm Hg) 129 03/05/2018 [facility] Diastolic (mm Hg) 82 03/05/2018 [facility] Heart Rate 102 03/05/2018 [facility] Systolic (mm Hg) 122 03/05/2018 [facility] Diastolic (mm Hg) 78 03/05/2018 [facility] Respitory Rate 16 03/05/2018 [facility] Heart Rate 97 03/05/2018 [facility] Temperature Oral (F) 98.0 F 03/05/2018 [facility] Respitory Rate 16 03/05/2018 [facility] Respitory Rate 16 03/05/2018 [facility] Height 121.92 cm 02/26/2018 [facility] Weight 53.4 02/26/2018 [facility] BMI Calculated 35.92 02/26/2018 [facility] Weight 62.727 02/25/2018 [facility] BMI Calculated 25.29 02/25/2018 [facility] Height 157.48 cm 02/25/2018 [facility] Systolic (mm Hg) 145 02/13/2018 [facility] Diastolic (mm Hg) 67 02/13/2018 [facility] Temperature Oral (F) 98.5 F 02/13/2018 [facility] Heart Rate 111 02/13/2018 [facility] Temperature Oral (F) 98.7 F 02/13/2018 [facility] Heart Rate 106 02/13/2018 [facility] Systolic (mm Hg) 151 02/13/2018 [facility] Diastolic (mm Hg) 67 02/13/2018 [facility] Heart Rate 104 02/13/2018 [facility] Temperature Oral (F) 97.8 F 02/13/2018 [facility] Respitory Rate 20 02/13/2018 [facility] Systolic (mm Hg) 136 02/13/2018 [facility] Diastolic (mm Hg) 77 02/13/2018 [facility] Respitory Rate 18 02/13/2018 [facility] Respitory Rate 16 02/13/2018 [facility] Weight 59.091 01/21/2018 [facility] Weight 59.091 01/21/2018 [facility] BMI Calculated 27.23 01/21/2018 [facility] Height 147.32 cm 01/21/2018 [facility] Heart Rate 91 01/13/2018 [facility] Temperature Oral (F) 98.2 F 01/13/2018 [facility] Systolic (mm Hg) 114 01/13/2018 [facility] Diastolic (mm Hg) 73 01/13/2018 [facility] Systolic (mm Hg) 131 01/13/2018 [facility] Diastolic (mm Hg) 78 01/13/2018 [facility] Heart Rate 91 01/13/2018 [facility] Temperature Oral (F) 97.8 F 01/13/2018 [facility] Systolic (mm Hg) 124 01/13/2018 [facility] Diastolic (mm Hg) 78 01/13/2018 [facility] Respitory Rate 18 01/13/2018 [facility] Heart Rate 87 01/13/2018 [facility] Temperature Oral (F) 97.9 F 01/13/2018 [facility] Respitory Rate 18 01/13/2018 [facility] Respitory Rate 20 01/13/2018 [facility] Height 147.32 cm 01/01/2018 [facility] BMI Calculated 28.06 01/01/2018 [facility] Weight 60.909 01/01/2018 [facility] BMI Calculated 28.06 01/01/2018 [facility] Weight 60.909 01/01/2018 [facility] Height 147.32 cm 01/01/2018 [facility] Height 147.32 cm 01/01/2018 [facility] BMI Calculated 28.06 01/01/2018 [facility] Weight 60.909 01/01/2018 [facility] Encounters Location Location Details Encounter Type Encounter Number Reason For Visit Attending Provider ADM Date DC Date Status Source [facility] [place] [facility] [id number] Jarrell Gaytan 04/13/2015 04/14/2015 [facility] [place] [facility] [place] [facility] [id number] Thomas Perry 08/24/2015 08/25/2015 [facility] [place] [facility] [id number] [facility] 01[facility]01/2018 01/13/2018 [facility] [id number] [facility] 01/21/2018 02/14/2018 [facility] [id number] [facility] 02/25/2018 03/06/2018 [facility] Procedures Procedure Code Date Perfomer Comments Source Colectomy 32308441 [facility] Hemorrhoidectomy [id number] [facility] Knee joint operation [id number] [facility] Ostomy care management [id number] [facility] Wrist repair [id number] [facility] Assessment and Plan Assessment and Plan Date Source Extracted from:Title: Clinical Document Author: Celeste Samuels MD Date: 03/05/18 Progress Daily [facility] Completed: Feb, 17:44 by Celeste Samuels MD [...] and off leakage from the fistula manager hardware. Apparently she is accepted to a skilled [...] connected to the suction tube draining profusely [employer]DER [employer] AAox3 NO FND Skin no wounds seen [...] an outpatient to and discussed with the medical case manager patient needs a fistula manager hardware and suction at the skilled facility to [...] Meals 02/25/18 enoxaparin (Lovenox) 30 mg SUB-Q [id number] 03/02/18 metoprolol (metoprolol extended release) 25 mg [...] (SEROquel) 25 mg PO BID 02/25/18 acetaminophen-hydrocodone ([place] 5/325 oral tablet) 1 tab PO Q6H 02/25/18 acetaminophen 650 mg PO Q6H 02/25/18 bisacodyl 10 mg TN Daily 02/25/18 diphenhydrAMINE 25 mg PO Q6H [...] MD Date: 03/05/18 Discharge Information Disposition to fdc facility Condition stable Medications: See med reconciliation [...] underwent a colectomy with ileostomy placement at [facility] in September as per her she had [...] we do not have any wound manager hardware in the wound clinic and she was supposed to get a wound manager hardware from the [employer] and follow-up in the wound clinic REVIEW [...] midline. Fistula area secondary to stool irritation [employer] AAox3 NO FND Skin no wounds seen [...] eval Lovenox for DVT prophylaxis Case management: alf facility placement Disposition: Inpatient DC planning: Patient will be discharged to fdc facility placement. 03/06/2018 [facility] Extracted from:Title: Discharge Summary * Author: Joshua Healy MD Date: 02/13/18 Discharge Information depo: home condition: stable reg diet Extracted from:Title: Clinical Document Author: John Oreilly MD Date: 02/13/18 Progress Note - Daily [facility] Completed: Feb, 16:13 by John Oreilly MD [...] Tot 441 275 166 02/12 24hr Tot [id number] 146 Medications (32) Active Scheduled Meds (12): [...] LORazepam 0.5 mg PO BID 01/21/18 acetaminophen-hydrocodone ([place] 5/325 oral tablet) 1 tab PO Q6H [...] I have examined the patient with the PA/AIR BATTLE MANAGER and confirmed the integral components of the history, physical examination, diagnosis and treatment plan. I agree with the note and management decisions as documented by the AIR BATTLE MANAGER/PA, and amended as needed in the text [...] moderate to severe pain. Will continue PO [place]wood 10/325mg every 6 hours as needed for mild to moderate pain. Discussed proper medication usage with the patient today. We left a prescription on her chart for [place] 10/325mg, #20, CTRL [id number] for upon discharge. We will continue to [...] BID 01/04/18 enoxaparin (Lovenox) 30 mg SUB-Q [id number] 01/04/18 octreotide 50 microgram SUB-Q TID 01/04/18 pantoprazole 40 mg IVP Q12H 01/04/18 sertraline 100 mg PO Daily PRN Meds (16): 01/02/18 Dextrose 50% in Water IV (Dextrose 50% Syringe) 12.5 gm IVP PRN 01/02/18 Dextrose 50% in Water IV (Dextrose 50% Syringe) 25 gm IVP PRN 01/04/18 LORazepam (Ativan) 0.5 mg PO TID 01/01/18 acetaminophen-hydrocodone ([place] 10/325 oral tablet) 1 tab PO Q6H [...] 07:00 Surgical Drains: Other: midline fistula manager hardware [facility] 01/01/2018 07:50 GI Ostomy: Ileostomy Established [...] underwent a colectomy with ileostomy placement at [facility] in September as per her she had [...] the wound care nurse and wound manager hardware was placed today and she has almost [...] Ibuprofen. Motrin. Physical examination: Vital signs T98.4 TN 86 BP 03/10[birth year]1966 RR 16 HEENT ROSANGELA Neck supple RS Equal AE b/l no added sounds CVS S1S2 normal no murmur P/A soft patient has a wound manager hardware in the midline having profuse feculent drainage She has a ileostomy could not see the wound as patient has a wound manager hardware [employer] AAox3 NO FND Skin intact Ext no [...] when we reevaluate without a wound manager hardware and as per the patient and wound [...]
--- OUTSIDE RECORDS SUMMARY | 2018-11-05 07:18 | XMS REPORT | Clinical Summary ---
Author Author [facility] Address Unknown Phone Unavailable Care Team Providers Care Livestock Trucker Name Role Phone Cody Cheng PCP Jarrell Gaytan MD Unavailable Unavailable Arnulfo Pina MD 3 Allergies Not on File Medications End Date Status Medication Sig Dispensed Refills Start Date Active metoprolol (TOPROL-XL) Take 100 mg 0 100 MG 24 hr by mouth tabletIndications: ESRD daily. (end stage renal disease) ([facility]) Active pantoprazole (PROTONIX) Take 20 mg by 0 20 MG tabletIndications: mouth daily. ESRD (end stage renal disease) ([facility]) Active folic acid (FOLVITE) 1 MG Take 1 mg by 0 tabletIndications: ESRD mouth daily. (end stage renal disease) ([facility]) Active ondansetron (ZOFRAN) 8 MG Take by mouth 0 tabletIndications: ESRD every 8 (end stage renal disease) (eight) hours ([facility]) as needed for Nausea. Active sodium bicarbonate 650 MG Take 1 tablet 0 tabletIndications: ESRD by mouth 4 (end stage renal disease) (four) times ([facility]) daily. Active sertraline (ZOLOFT) 100 Take 100 mg 0 MG tabletIndications: by mouth ESRD (end stage renal daily. disease) ([facility]) Active ranitidine (ZANTAC) 150 Take 150 mg 0 MG capsuleIndications: by mouth 2 ESRD (end stage renal (two) times disease) ([facility]) daily. Active sevelamer (RENVELA) 800 Take 800 mg 0 mg tabletIndications: by mouth 3 ESRD (end stage renal (three) times disease) ([facility]) daily with meals. Active metoclopramide HCl Take 10 mg by 0 (REGLAN) 10 MG mouth 4 tabletIndications: ESRD (four) times (end stage renal disease) daily as ([facility]) needed for Nausea. Active amLODIPine (NORVASC) 10 Take 10 mg by 0 MG tabletIndications: mouth daily. ESRD (end stage renal disease) ([facility]) Active SUMAtriptan (IMITREX) 100 Take 100 mg 0 MG tabletIndications: by mouth once ESRD (end stage renal as needed for disease) ([facility]) Headaches. Active zolpidem (AMBIEN) 10 mg Take 10 mg by 0 tabletIndications: ESRD mouth every (end stage renal disease) night as ([facility]) needed for Insomnia. Active promethazine (PHENERGAN) Take 25 mg by 0 25 MG tabletIndications: mouth every 6 ESRD (end stage renal (six) hours disease) ([facility]) as needed for Nausea. Active insulin aspart (NOVOLOG) Inject 12 0 100 unit/mL Units InPnIndications: ESRD subcutaneousl (end stage renal disease) y 3 (three) ([facility]) times daily with meals. Active insulin detemir (LEVEMIR) Inject 30 0 100 unit/mL (3 mL) InPn Units injectionIndications: subcutaneousl ESRD (end stage renal y nightly. disease) ([facility]) Active vit B cmplex Take 1 tablet 0 8-UF-X-biot-Zn ox by mouth 1-60-300-12.5 daily. [id number] TabIndications: ESRD (end stage renal disease) ([facility]) Active cholecalciferol, vitamin Take 1,000 0 D3, 1,000 unit Units by capsuleIndications: ESRD mouth daily. (end stage renal disease) ([facility]) Active LORazepam (ATIVAN) 0.5 MG Take 0.5 mg 0 tabletIndications: ESRD by mouth (end stage renal disease) every 6 (six) ([facility]) hours as needed for Anxiety. Active [...]
--- OUTSIDE RECORDS SUMMARY | 2018-11-05 07:18 | XMS REPORT | Clinical Summary ---
Author Author [facility] Address Unknown Phone Unavailable Care Team Providers Care Special Agent Name Role Phone Cody Cheng MD PCP [...] Advance Directives For more information, please contact: [phone] Patient Leak Detection Engineer Explanation Type Date Recorded Advance Directives, Living Will and Medical Power of Equine Science Instructor
--- OUTSIDE RECORDS SUMMARY | 2018-11-05 07:20 | XMS REPORT | Continuity of Care Document ---
Author Author [employer] Organization [employer] Address Unknown Phone Unavailable Care Team Providers Care Abap Developer Name Role Phone [employer] Unavailable Unavailable Problems Problem Status Onset Date Classification Date Reported Comments Source Persistent postprocedural fistula, initial encounter 03/22/2018 09/22/2018 [facility] ABD PAIN Active 02/25/2018 [facility] ABDOMINAL PAIN, ACUTE, ACUTE LOWER UTI, Active 02/25/2018 [facility] Other complications of enterostomy 01/21/2018 08/02/2018 [facility] N/V Active 01/21/2018 [facility] MAGI Active 01/21/2018 [facility] ABDOMINAL FISTULA LEAKING Active 12/31/2017 [facility] R10.10 - "UPPER ABDOMINAL PAIN, UNSPECIF [facility] [place] Unspecified abdominal pain 08/02/2018 [facility] Hypo-osmolality and hyponatremia 09/02/2018 [facility] Acidosis 09/22/2018 [facility] Fistula of intestine 09/22/2018 [facility] Acute kidney failure, unspecified 09/22/2018 [facility] Disruption of external operation wound, not elsewhere classified, initial encounter 08/02/2018 [facility] Chronic kidney disease, stage 4 08/02/2018 [facility] Iron deficiency anemia secondary to blood loss 08/02/2018 [facility] Type 2 diabetes mellitus with diabetic chronic kidney disease 09/22/2018 [facility] Hyperlipidemia, unspecified 09/22/2018 [facility] Other disorders of phosphorus metabolism 08/02/2018 [facility] Volume depletion, unspecified 08/02/2018 [facility] Hyperkalemia 09/02/2018 [facility] Unspecified osteoarthritis, unspecified site 09/22/2018 [facility] Cyst of kidney, acquired 09/22/2018 [facility] Acquired absence of other specified parts of digestive tract 09/22/2018 [facility] Retention of urine, unspecified 08/02/2018 [facility] Hypertensive chronic kidney disease with stage 1 through stage 4 chronic kidney disease, or unspecified chronic kidney disease 09/22/2018 [facility] Toxic encephalopathy 09/02/2018 [facility] Ulcer of esophagus without bleeding 09/02/2018 [facility] Chronic kidney disease, stage 3 09/02/2018 [facility] Diaphragmatic hernia without obstruction or gangrene 09/02/2018 [facility] Gastritis, unspecified, without bleeding 09/02/2018 [facility] Anemia in other chronic diseases classified elsewhere 09/02/2018 [facility] FCI use of insulin 09/02/2018 [facility] Ileostomy status 09/02/2018 [facility] Personal history of nicotine dependence 09/22/2018 [facility] Dehydration 09/22/2018 [facility] Hypomagnesemia 09/22/2018 [facility] Adverse effect of unspecified nonopioid analgesic, antipyretic and antirheumatic, initial encounter 09/02/2018 [facility] Gastro-esophageal reflux disease with esophagitis 09/02/2018 [facility] Hypokalemia 09/22/2018 [facility] Other malaise 09/22/2018 [facility] Nausea with vomiting, unspecified 09/02/2018 [facility] Type 2 diabetes mellitus with hypoglycemia without coma 09/02/2018 [facility] Fever, unspecified 09/02/2018 [facility] Pain in right forearm 09/02/2018 [facility] Unspecified right bundle-branch block 09/02/2018 [facility] Epigastric pain 09/02/2018 [facility] Surgical operation with formation of external stoma as the cause of abnormal reaction of the patient, or of later complication, without mention of misadventure at the time of the procedure 09/02/2018 [facility] Urinary tract infection, site not specified 09/22/2018 [facility] Chronic kidney disease, stage 3 (moderate) 09/22/2018 [facility] Tremor, unspecified 09/22/2018 [facility] Hypocalcemia 09/22/2018 [facility] Pressure ulcer of sacral region, unstageable 09/22/2018 [facility] Anemia in chronic kidney disease 09/22/2018 [facility] Other specified disorders of the skin and subcutaneous tissue 09/22/2018 [facility] Colostomy status 09/22/2018 [facility] Bed confinement status 09/22/2018 [facility] UNSPECIFIED ABDOMINAL PAIN Active [facility] FISTULA OF STOMACH AND DUODENUM Active [facility] ACUTE KIDNEY FAILURE, UNSPECIFIED Active [facility] URINARY TRACT INFECTION, SITE NOT SPECIF Active [facility] Medications Medication Details Route Status Patient Instructions Ordering Provider Order Date Source Octreotide 0.1 MG/ML Injectable Solution [Sandostatin] 100 microgram, SUB-Q, BID, X 30 day, # 60 vial, 0 Refill(s), other No Longer Active 03/05/2018 [facility] loperamide 2 mg oral capsule 2 mg=1 cap, PO, Q4H, PRN loose stools, # 30 cap, 0 Refill(s), other Active 03/05/2018 [facility] potassium chloride 20 mEq oral tablet, extended release 40 mEq, 2 tab, Route: PO, Drug form: ERTAB, ONCE, Dosing Weight 53.4, kg, Start date: 03/05/18 17:41:00 TAPE COATER, Stop date: 03/05/18 17:41:00 CSTNotes: (Same as: K- Dur 20) "Do Not Crush" Give with food and full glass of water For patients unable to swallow tablet, dissolve in one half glass of water. Allow about 2 minutes for the tablets to disintegrate. Stir before giving to prepare slurry an d administer. Please exclude Patients with feeding tube less than 14 [place] (Dobhoff, J-tube etc) and pediatric and patients. Inactive 03/05/2018 [facility] Ondansetron 4 MG Disintegrating Tablet [Zofran] 4 mg=1 tab, PO, TID, Dissolve tab under tongue, # 20 tab, 0 Refill(s) Active 03/05/2018 [facility] enoxaparin 30 mg/0.3 mL subcutaneous solution 30 mg=0.3 mL, SUB-Q, [id number], 0 Refill(s) Active 03/05/2018 [facility] Acetaminophen 300 MG / Codeine Phosphate 30 MG Oral Tablet [Tylenol with Codeine #3] 1 tab, PO, Q6H, PRN Pain, # 25 tab, 0 Refill(s) Active 03/05/2018 [facility] Phenergan 25 mg oral tablet 25 mg=1 tab, PO, Q6H, PRN Nausea, # 30 tab, 0 Refill(s), other Active 03/05/2018 [facility] metoprolol extended release 25 mg, 1 tab, Route: PO, Drug form: ERTAB, Daily, Priority: NOW, Start date: 03/02/18 23:10:00 TAPE COATER, Duration: 30 day, Stop date: 04/01/18 9:00:00 CSTNotes: (Same as: Toprol XL) Do Not Crush No Longer Active 03/03/2018 [facility] Promethazine 25 mg, 1 mL, Route: IVPB, Q6H, Dosing Weight 53.4, kg, PRN Nausea & Vomiting, Start date: 03/02/18 7:41:00 TAPE COATER, Duration: 30 day, Stop date: 04/01/18 7:40:00 CSTNotes: Do not give IV push. (Same as: Phenergan) No Longer Active 03/02/2018 [facility] Magnesium Sulfate 2 gm, 50 mL, Route: IVPB, Drug form: INJ, ONCE, Dosing Weight 53.4, kg, Start date: 02/28/18 17:34:00 TAPE COATER, Stop date: 02/28/18 17:34:00 CSTNotes: WASTE: F/P - Sink; E - Municipal Trash Bin Inactive 02/28/2018 [facility] Tums 1,000 mg, 2 tab, Route: CHEW, Drug form: CHEWTAB, TID-Before Meals, Dosing Weight 53.4, kg, Start date: 02/28/18 16:30:00 TAPE COATER, Duration: 30 day, Stop date: 03/30/18 11:30:00 CSTNotes: (Same As: Tums) Calcium Carbonate 500 ay=532 mg elemental calcium Dose= mg calcium carbonate ( mg elemental calcium) No Longer Active 02/28/2018 [facility] Calcium Gluconate 1,000 mg, 10 mL, Route: IVPB, ONCE, Dosing Weight 53.4, kg, Start date: 02/28/18 13:54:00 TAPE COATER, Stop date: 02/28/18 13:54:00 CSTNotes: WASTE: F/P - Sink; E - [employer] Trash Bin Inactive 02/28/2018 [facility] Magnesium Sulfate 2 gm, 50 mL, Route: IVPB, Drug form: INJ, ONCE, Dosing Weight 53.4, kg, Start date: 02/28/18 13:54:00 TAPE COATER, Stop date: 02/28/18 13:54:00 CSTNotes: WASTE: F/P - Sink; E - Municipal Trash Bin Inactive 02/28/2018 [facility] Magnesium Sulfate 2 gm, 50 mL, Route: IV, Drug form: INJ, ONCE, Dosing Weight 53.4, kg, Start date: 02/28/18 10:56:00 TAPE COATER, Stop date: 02/28/18 10:56:00 CSTNotes: WASTE: F/P - Sink; E - Municipal Trash Bin Inactive 02/28/2018 [facility] Dilaudid 1 mg, 1 mL, Route: IVP, Drug form: SOLN, ONCE, Dosing Weight 53.4, kg, Priority: STAT, Start date: 02/28/18 10:37:00 TAPE COATER, Stop date: 02/28/18 10:37:00 CSTNotes: (Same as: Dilaudid) Inactive 02/28/2018 [facility] Insulin Lispro 2 unit, 0.02 mL, Route: SUB-Q, Drug form: SOLN, Bedtime, Dosing Weight 53.4, kg, PRN Blood Glucose Results, Start date: 02/27/18 22:09:00 TAPE COATER, Duration: 30 day, Stop date: 03/29/18 22:08:00 CSTNotes: (Same as: Humalog ) Roll in palms of hands gently; Do not shake `vigorously. "Single Patient Use Only " WASTE: F/P - Black; E - Municipal Trash Bin Stable for 28 days at room temperature. Expires in days from Date No Longer Active 02/28/2018 [facility] Dextrose 50% Syringe 25 gm, 50 mL, Route: IVP, Drug Form: INJ, Dosing Weight 53.4, kg, PRN, PRN Blood Glucose Results, Start date: 02/27/18 22:09:00 TAPE COATER, Duration: 30 day, Stop date: 03/29/18 22:08:00 TAPE COATER No Longer Active 02/28/2018 [facility] Glucagon 1 mg, Route: IM, Drug form: PDR/INJ, PRN, Dosing Weight 53.4, kg, PRN Blood Glucose Results, Start date: 02/27/18 22:09:00 TAPE COATER, Duration: 30 day, Stop date: 03/29/18 22:08:00 TAPE COATER No Longer Active 02/28/2018 [facility] Tums 1,000 mg, 2 tab, Route: CHEW, Drug form: CHEWTAB, TID-Meals, Dosing Weight 53.4, kg, Start date: 02/27/18 17:00:00 TAPE COATER, Duration: 30 day, Stop date: 03/29/18 12:00:00 CSTNotes: (Same As: Tums) Calcium Carbonate 500 af=697 mg elemental calcium Dose= mg calcium carbonate ( mg elemental calcium) No Longer Active 02/27/2018 [facility] Calcium Gluconate 2,000 mg, 20 mL, Route: IVPB, ONCE, Dosing Weight 53.4, kg, Start date: 02/27/18 10:59:00 TAPE COATER, Stop date: 02/27/18 10:59:00 CSTNotes: WASTE: F/P - Sink; E - Municipal Trash Bin Inactive 02/27/2018 [facility] Potassium Chloride 1.33 MEQ/ML Oral Solution 20 mEq, 1 tab, Route: PO, Drug form: ERTAB, ONCE, Dosing Weight 53.4, kg, Start date: 02/27/18 10:59:00 TAPE COATER, Stop date: 02/27/18 10:59:00 TAPE COATER Inactive 02/27/2018 [facility] Zinc Oxide 0.2 MG/MG Topical Ointment Route: TOP, BID, Drug form: OINT, Start date: 02/27/18 9:00:00 TAPE COATER, Duration: 30 day, Stop date: 03/28/18 17:00:00 CSTNotes: Same as: Desitin No Longer Active 02/27/2018 [facility] Timothy packet 1 pkt, Route: PO, Drug Form: PWDR, Dosing Weight 53.4, kg, BID-Before Meals, Start date: 02/27/18 7:30:00 TAPE COATER, Duration: 28 day, Stop date: 03/26/18 16:30:00 CSTNotes: (Same as: Timothy Liberty) No Longer Active 02/27/2018 [facility] cefepime 1 gm, Route: IVPB, [id number], Dosing Weight 62.727, kg, (CrCl >/=50 ml/min), Start date: 02/26/18 16:00:00 TAPE COATER, Duration: 7 day, Stop date: 03/04/18 16:00:00 TAPE COATER, ABX Indication: Urinary Tract InfectionNotes: (Same As: Maxipime) MEDICATION WASTE Product Size: 1000 mg Product Wasted: ___ mg No Longer Active 02/26/2018 [facility] Promethazine 25 mg, PO, Q6H, 0 Refill(s) No Longer Active 02/26/2018 [facility] Famotidine 40 mg, PO, Bedtime, # 60 tab, 0 Refill(s) Active 02/26/2018 [facility] pramipexole 0.125 mg oral tablet 0.125 mg=1 tab, PO, Daily, 0 Refill(s) Active 02/26/2018 [facility] sucralfate 1 g oral tablet 1 gm=1 tab, PO, QID-Before Meals, 0 Refill(s) Active 02/26/2018 [facility] Sodium Bicarbonate 10 grain, PO, BID, 0 Refill(s) Active 02/26/2018 [facility] atorvastatin 40 mg oral tablet 40 mg=1 tab, PO, Bedtime, # 90 tab, 1 Refill(s) Active 02/26/2018 [facility] Lovenox 30 mg, 0.3 mL, Route: SUB-Q, Drug form: INJ, [id number], Dosing Weight 62.727, kg, Start date: 02/25/18 20:00:00 TAPE COATER, Duration: 30 day, Stop date: 03/26/18 20:00:00 CSTNotes: (Same as: Lovenox) No Longer Active 02/26/2018 [facility] Calcium Gluconate 3,000 mg, 30 mL, Route: IVPB, ONCE, Dosing Weight 62.727, kg, Start date: 02/25/18 18:58:00 TAPE COATER, Stop date: 02/25/18 18:58:00 CSTNotes: WASTE: F/P - Sink; E - Municipal Trash Bin Inactive 02/26/2018 [facility] Hydromorphone 0.5 mg, Route: IVP, ONCE, Dosing Weight 62.727, kg, Priority: STAT, Start date: 02/25/18 18:45:00 TAPE COATER, Stop date: 02/25/18 18:45:00 TAPE COATER Inactive 02/26/2018 [facility] Hydralazine 10 mg, 0.5 mL, Route: IVP, Drug form: INJ, Q4H, Dosing Weight 62.727, kg, PRN Hypertension, Priority: Routine, Start date: 02/25/18 18:09:00 TAPE COATER, Duration: 30 day, Stop date: 03/27/18 18:08:00 CSTNotes: (Same as: Apresoline) Push over 5 minutes No Longer Active 02/26/2018 [facility] Seroquel 25 mg, 1 tab, Route: PO, Drug form: TAB, BID, Dosing Weight 62.727, kg, PRN Agitation, Start date: 02/25/18 18:09:00 TAPE COATER, Duration: 30 day, Stop date: 03/27/18 18:08:00 CSTNotes: (Same as: SEROquel) No Longer Active 02/26/2018 [facility] Acetaminophen 325 MG / Hydrocodone Bitartrate 5 MG Oral Tablet [[place] 5/325] 1 tab, Route: PO, Drug Form: TAB, Dosing Weight 62.727, kg, Q6H, PRN Pain Score 1-3, Start date: 02/25/18 18:09:00 TAPE COATER, Duration: 30 day, Stop date: 03/27/18 18:08:00 CSTNotes: (Same as: [place] 325/5) Do not exceed 4gm/day of acetaminophen. No Longer Active 02/26/2018 [facility] Morphine 2 mg, 0.5 mL, Route: IVP, Drug form: SOLN, Q4H, Dosing Weight 62.727, kg, PRN Pain Score 7-10, Start date: 02/25/18 18:09:00 TAPE COATER, Duration: 30 day, Stop date: 03/27/18 18:08:00 CSTNotes: (Same as:MORPhine Sulfate) No Longer Active 02/26/2018 [facility] magnesium citrate 58.2 MG/ML Oral Solution 300 ml, Route: PO, Drug Form: LIQ, Dosing Weight 62.727, kg, ONCE, PRN Constipation, Start date: 02/25/18 18:09:00 CSTNotes: (Same as: Citrate of Magnesia) Concentration: 1.745 gm / 30 mL No Longer Active 02/26/2018 [facility] Nicotine 21 mg, 1 patch, Route: TOP, Drug form: ERFILM, Daily, Dosing Weight 62.727, kg, PRN as needed for smoking cessation, Start date: 02/25/18 18:09:00 TAPE COATER, Duration: 30 day, Stop date: 03/27/18 18:08:00 TAPE COATER Notes: (Same as: Habitrol) "Remove old patch before application of new patch" WASTE: F/P - P Waste Black; E - P Waste Black No Longer Active 02/26/2018 [facility] Glucagon 1 mg, Route: IM, Drug form: PDR/INJ, PRN, Dosing Weight 62.727, kg, PRN Blood Glucose Results, Start date: 02/25/18 18:09:00 TAPE COATER, Duration: 30 day, Stop date: 03/27/18 18:08:00 TAPE COATER No Longer Active 02/26/2018 [facility] Dextrose 50% Syringe 12.5 gm, 25 mL, Route: IVP, Drug Form: INJ, Dosing Weight 62.727, kg, PRN, PRN Blood Glucose Results, Start date: 02/25/18 18:09:00 TAPE COATER, Duration: 30 day, Stop date: 03/27/18 18:08:00 TAPE COATER No Longer Active 02/26/2018 [facility] Acetaminophen 650 mg, 2 tab, Route: PO, Drug form: TAB, Q6H, Dosing Weight 62.727, kg, PRN For Temp > 100.4 F, Start date: 02/25/18 18:09:00 TAPE COATER, Duration: 30 day, Stop date: 03/27/18 18:08:00 CSTNotes: Do not exceed 4 gm/day. (Same as: Tylenol) No Longer Active 02/26/2018 [facility] Trazodone 50 mg, 1 tab, Route: PO, Drug form: TAB, Bedtime, Dosing Weight 62.727, kg, PRN Insomnia, Start date: 02/25/18 18:09:00 TAPE COATER, Duration: 30 day, Stop date: 03/27/18 18:08:00 CSTNotes: (Same As: Desyrel) No Longer Active 02/26/2018 [facility] Melatonin 3 mg, 1 tab, Route: PO, Drug form: TAB, Bedtime, Dosing Weight 62.727, kg, PRN Insomnia, Start date: 02/25/18 18:09:00 TAPE COATER, Duration: 30 day, Stop date: 03/27/18 18:08:00 CSTNotes: (Same as: Melatonin) No Longer Active 02/26/2018 [facility] Diphenhydramine 25 mg, 1 tab, Route: PO, Drug form: TAB, Q6H, Dosing Weight 62.727, kg, PRN as needed for allergy symptoms, Start date: 02/25/18 18:09:00 TAPE COATER, Duration: 30 day, Stop date: 03/27/18 18:08:00 TAPE COATER No Longer Active 02/26/2018 [facility] POLYETHYLENE GLYCOL 3350 17 gm, 1 pkt, Route: PO, Drug form: PWDR, Daily, Dosing Weight 62.727, kg, PRN Constipation, Start date: 02/25/18 18:09:00 TAPE COATER, Duration: 30 day, Stop date: 03/27/18 18:08:00 CSTNotes: Dissolve in 8 oz of water or juice. (Same as: Miralax) No Longer Active 02/26/2018 [facility] Ondansetron 4 mg, 2 mL, Route: IVP, Drug form: INJ, Q6H, Dosing Weight 62.727, kg, PRN Nausea & Vomiting, Start date: 02/25/18 18:09:00 TAPE COATER, Duration: 30 day, Stop date: 03/27/18 18:08:00 CSTNotes: (Same as: Zofran) MEDICATION WASTE Product Size: 4 mg Product Wasted: ___ mg No Longer Active 02/26/2018 [facility] Bisacodyl 10 mg, 1 supp, Route: MD, Drug form: SUPP, Daily, Dosing Weight 62.727, kg, PRN Constipation, Start date: 02/25/18 18:09:00 TAPE COATER, Duration: 30 day, Stop date: 03/27/18 18:08:00 CSTNotes: (Same As: Dulcolax, Bisco-Lax) No Longer Active 02/26/2018 [facility] NS 1,000 mL 1,000 mL, Rate: 125 ml/hr, Infuse over: 8 hr, Route: IV, Dosing Weight 53.4 kg, Total Volume: 1,000, Start date: 02/25/18 16:38:00 TAPE COATER, Duration: 30 day, Stop date: 03/27/18 16:37:00 TAPE COATER, 1.38, m2 No Longer Active 02/25/2018 [facility] Sodium Chloride 0.9% (Bolus) IV 1,000 mL, 1000 ml/hr, Infuse Over: 1 hr, Route: IV, 1,000, Drug form: INJ, ONCE, Priority: STAT, Dosing Weight 62.727 kg, Start date: 02/25/18 15:24:00 TAPE COATER, Stop date: 02/25/18 15:24:00 TAPE COATER Inactive 02/25/2018 [facility] cefepime 1 gm, Route: IVPB, ONCE, Dosing Weight 62.727, kg, Priority: STAT, Start date: 02/25/18 15:20:00 TAPE COATER, Stop date: 02/25/18 15:20:00 TAPE COATER, ABX Indication: Urinary Tract Infection Inactive 02/25/2018 [facility] Morphine 2 mg, 1 mL, Route: IVP, Drug form: SOLN, ONCE, Dosing Weight 62.727, kg, Priority: STAT, Start date: 02/25/18 13:24:00 TAPE COATER, Stop date: 02/25/18 13:24:00 TAPE COATER Inactive 02/25/2018 [facility] Ondansetron 4 mg, 2 mL, Route: IVP, Drug form: INJ, ONCE, Dosing Weight 62.727, kg, Priority: STAT, Start date: 02/25/18 13:24:00 TAPE COATER, Stop date: 02/25/18 13:24:00 CSTNotes: (Same as: Tomas) MEDICATION WASTE Product Size: 4 mg Product Wasted: ___ mg Inactive 02/25/2018 [facility] Sodium Chloride 0.9% (Bolus) IV 1,000 mL, 1000 ml/hr, Infuse Over: 1 hr, Route: IV, 1,000, Drug form: INJ, ONCE, Priority: STAT, Dosing Weight 62.727 kg, Start date: 02/25/18 13:24:00 TAPE COATER, Stop date: 02/25/18 13:24:00 TAPE COATER Inactive 02/25/2018 [facility] Saline Flush 0.9% 10 mL, Route: IVP, Drug Form: INJ, Dosing Weight 62.727, kg, PRN, PRN Line Flush, Start date: 02/25/18 13:24:00 TAPE COATER, Duration: 30 day, Stop date: 03/27/18 13:23:00 CSTNotes: Same as: BD Posiflush Sterile No Longer Active 02/25/2018 [facility] Urocit-K 10 mEq, 1 tab, Route: PO, Drug form: ERTAB, TID- Meals, Dosing Weight 59.091, kg, Start date: 02/13/18 17:00:00 TAPE COATER, Duration: 30 day, Stop date: 03/15/18 12:00:00 TAPE COATER Inactive 02/13/2018 [facility] Calcium Gluconate 2,000 mg, 20 mL, Route: IVPB, ONCE, Dosing Weight 59.091, kg, Start date: 02/13/18 11:36:00 TAPE COATER, Stop date: 02/13/18 11:36:00 CSTNotes: WASTE: F/P - Sink; E - Municipal Trash Bin Inactive 02/13/2018 [facility] Prednisone 60 mg, 3 tab, Route: PO, Drug form: TAB, Daily, Dosing Weight 59.091, kg, Priority: NOW, Start date: 02/12/18 13:23:00 TAPE COATER, Duration: 5 day, Stop date: 02/17/18 9:00:00 CSTNotes: Take with food. No Longer Active 02/12/2018 [facility] Sodium Bicarbonate 325 MG Oral Tablet 650 mg, 1 tab, Route: PO, Drug form: TAB, BID, Dosing Weight 59.091, kg, Start date: 02/12/18 9:00:00 TAPE COATER, Duration: 30 day, Stop date: 03/13/18 17:00:00 CSTNotes: "Dissolve tablet in a glass of water prior to oral administration. STOMACH WARNING: To avoid serious injury, do not take until tablet is completely dissolved. It is very important not to take this product when overly full from food or drink." No Longer Active 02/12/2018 [facility] sodium bicarbonate 8.4% additive 75 mEq + D5W 1/2NS 1,000 mL 1,000 mL, Rate: 75 ml/hr, Infuse over: 14.3 hr, Route: IV, Dosing Weight 59.091 kg, Total Volume: 1,075, Start date: 02/12/18 7:59:00 TAPE COATER, Duration: 30 day, Stop date: 03/14/18 7:58:00 TAPE COATER, 1.58, [id number]: (sodium bicarb 8.4% (1 mEq/ml) 50 ml VL) No Longer Active 02/12/2018 [facility] Merrem 500 mg, Route: IVPB, [id number], Dosing Weight 59.091, kg, CrCL >=50ml/min, Extended infusion, infuse over 3 hours, Start date: 02/07/18 16:00:00 TAPE COATER, Duration: 10 day, Stop date: 02/17/18 10:00:00 TAPE COATER, ABX Indication: BacteremiaNotes: Same as Merrem MEDICATION WASTE Product Size: 500 mg Product Wasted: ___ mg No Longer Active 02/07/2018 [facility] meropenem + sterile water 10 mL 500 mg, Route: IV, ONCE, Start date: 02/07/18 8:06:00 TAPE COATER, Stop date: 02/07/18 8:06:00 TAPE COATER, ABX Indication: BacteremiaNotes: Same as Merrem MEDICATION WASTE Product Size: 500 mg Product Wasted: ___ mg Inactive 02/07/2018 [facility] Imitrex 6 mg, 0.5 mL, Route: SUB-Q, Drug form: INJ, ONCE, Dosing Weight 59.091, kg, PRN Headache 6-10, Start date: 02/04/18 14:38:00 CSTNotes: For SUBCUTANEOUS use only Inactive 02/04/2018 [facility] D5NS 1,000 mL 1,000 mL, Rate: 75 ml/hr, Infuse over: 13.3 hr, Route: IV, Dosing Weight 59.091 kg, Total Volume: 1,000, Start date: 02/04/18 7:09:00 TAPE COATER, Duration: 30 day, Stop date: 03/06/18 7:08:00 TAPE COATER, 1.58, m2 No Longer Active 02/04/2018 [facility] sodium bicarbonate 8.4% additive 75 mEq + 1/2 NS 1,000 mL 1,000 mL, Rate: 70 ml/hr, Infuse over: 15.4 hr, Route: IV, Dosing Weight 59.091 kg, Total Volume: 1,075, Start date: 01/31/18 10:34:00 TAPE COATER, Duration: 30 day, Stop date: 03/02/18 10:33:00 TAPE COATER, 1.58, [id number]: (sodium bicarb 8.4% (1 mEq/ml) 50 ml VL) No Longer Active 01/31/2018 [facility] Adult Parenteral Nutrition Custom - Central (TPN) 1,850 mL 1,850 mL, Rate: 75 ml/hr, Infuse over: 24.7 hr, Dosing Weight 59.091, kg, Route: IV, Total Volume: 1,850 mL, Start Date: 01/26/18 22:00:00 TAPE COATER, Duration: 24 hr, Stop date: 01/27/18 21:59:00 TAPE COATER, Replace Every: 24 hrNotes: Central line only Must use 1.2 micron filter AND Lipids should not be administered to patients who are allergic to soy, fish, egg or peanuts. No Longer Active 01/27/2018 [facility] Magnesium Sulfate 2 gm, 50 mL, Route: IVPB, Drug form: INJ, ONCE, Dosing Weight 59.091, kg, Start date: 01/26/18 13:19:00 TAPE COATER, Stop date: 01/26/18 13:19:00 CSTNotes: WASTE: F/P - Sink; E - Municipal Trash Bin Inactive 01/26/2018 [facility] Insulin Lispro 2 unit, 0.02 mL, Route: SUB-Q, Drug form: SOLN, Bedtime, Dosing Weight 59.091, kg, PRN Blood Glucose Results, Start date: 01/26/18 12:49:00 TAPE COATER, Duration: 30 day, Stop date: 02/25/18 12:48:00 CSTNotes: (Same as: Humalog ) Roll in palms of hands gently; Do not shake `vigorously. "Single Patient Use Only " WASTE: F/P - Black; E - Municipal Trash Bin Stable for 28 days at room temperature. Expires in days from Date No Longer Active 01/26/2018 [facility] Dextrose 50% Syringe 25 mL, Route: IVP, Dosing Weight 59.091, kg, PRN, PRN Blood Glucose Results, Start date: 01/26/18 12:49:00 TAPE COATER, Duration: 30 day, Stop date: 02/25/18 12:48:00 TAPE COATER Inactive 01/26/2018 [facility] [facility] Gl[facility] mg, Route: IM, PRN, Dosing Weight 59.091, kg, PRN Blood Glucose Results, Start date: 01/26/18 12:49:00 TAPE COATER, Duration: 30 day, Stop date: 02/25/18 12:48:00 TAPE COATER Inactive 01/26/2018 [facility] Adult Parenteral Nutrition Custom - Central (TPN) 1,850 mL 1,850 mL, Rate: 75 ml/hr, Infuse over: 24.7 hr, Dosing Weight 59.091, kg, Route: IV, Total Volume: 1,850 mL, Start Date: 01/25/18 22:00:00 TAPE COATER, Duration: 24 hr, Stop date: 01/26/18 21:59:00 TAPE COATER, Replace Every: 24 hrNotes: Central line only Must use 1.2 micron filter AND Lipids should not be administered to patients who are allergic to soy, fish, egg or peanuts. No Longer Active 01/26/2018 [facility] Levemir FlexPen 15 unit, Route: SUB-Q, Bedtime, Dosing Weight 59.091, kg, Start date: 01/25/18 21:00:00 TAPE COATER, Duration: 30 day, Stop date: 02/23/18 21:00:00 TAPE COATER Inactive 01/26/2018 [facility] insulin glargine 15 unit, 0.15 mL, Route: SUB-Q, Drug form: SOLN, Bedtime, Start date: 01/25/18 21:00:00 TAPE COATER, Duration: 30 day, Stop date: 02/23/18 21:00:00 CSTNotes: (Same as: Lantus) Do not hold insulin without contac ting prescriber WASTE: F/P - Black; E - Municipal Trash Bin "single patient use only" No Longer Active 01/26/2018 [facility] Adult Parenteral Nutrition Custom - Central (TPN) 1,850 mL 1,850 mL, Rate: 75 ml/hr, Infuse over: 24.7 hr, Dosing Weight 59.091, kg, Route: IV, Total Volume: 1,850 mL, Start Date: 01/24/18 22:00:00 TAPE COATER, Duration: 24 hr, Stop date: 01/25/18 21:59:00 TAPE COATER, Replace Every: 24 hr No Longer Active 01/25/2018 [facility] K-Dur 20 40 mEq, 2 tab, Route: PO, Drug form: ERTAB, BID, Dosing Weight 59.091, kg, Priority: Routine, Start date: 01/24/18 18:30:00 TAPE COATER, Duration: 1 doses or times, Stop date: [...] Patients with feeding tube less than 14 [place] (Dobhoff, J-tube etc) and pediatric and patients. Inactive 01/25/2018 [facility] Protonix 40 mg, 1 tab, Route: PO, Drug form: ECTAB, BID, Dosing Weight 59.091, kg, Start date: 01/24/18 17:00:00 TAPE COATER, Duration: 30 day, Stop date: 02/23/18 9:00:00 CSTNotes: Tablet should not be chewed or crushed. (Same as: Protonix) No Longer Active 01/24/2018 [facility] Potassium Chloride 40 mEq, 30 mL, Route: PO, Drug form: LIQ, BID, Dosing Weight 59.091, kg, Priority: Routine, Start date: 01/24/18 9:00:00 TAPE COATER, Duration: 2 doses or times, Stop date: 01/24/18 17:00:00 CSTNotes: (Same as: Potassium Chloride) Inactive 01/24/2018 [facility] Adult Parenteral Nutrition Custom - Central (TPN) 1,850 mL 1,850 mL, Rate: 75 ml/hr, Infuse over: 24.7 hr, Dosing Weight 59.091, kg, Route: IV, Total Volume: 1,850 mL, Start Date: 01/23/18 22:00:00 TAPE COATER, Duration: 24 hr, Stop date: 01/24/18 21:59:00 TAPE COATER, Replace Every: 24 hr No Longer Active 01/24/2018 [facility] Insulin Lispro 3 unit, 0.03 mL, Route: SUB-Q, Drug form: SOLN, Sliding Scale, Dosing Weight 59.091, kg, PRN Blood Glucose Results, Start date: 01/23/18 21:46:00 TAPE COATER, Duration: 30 day, Stop date: 02/22/18 21:45:00 CSTN otes: (Same as: Humalog ) Roll in palms of hands gently; Do not shake `vigorously. "Single Patient Use Only " WASTE: F/P - Black; E - Municipal Trash Bin Stable for 28 days at room temperature. Expires in days from Date No Longer Active 01/24/2018 [facility] Glucagon 1 mg, Route: IM, Drug form: PDR/INJ, PRN, Dosing Weight 59.091, kg, PRN Blood Glucose Results, Start date: 01/23/18 21:46:00 TAPE COATER, Duration: 30 day, Stop date: 02/22/18 21:45:00 TAPE COATER No Longer Active 01/24/2018 [facility] Dextrose 50% Syringe 25 gm, 50 mL, Route: IVP, Drug Form: INJ, Dosing Weight 59.091, kg, PRN, PRN Blood Glucose Results, Start date: 01/23/18 21:46:00 TAPE COATER, Duration: 30 day, Stop date: 02/22/18 21:45:00 TAPE COATER No Longer Active 01/24/2018 [facility] D5W 1/2NS + KCL 30mEq/L 1000ml (Premix) 1,000 mL 1,000 mL, Rate: 100 ml/hr, Infuse over: 10 hr, Route: IV, Dosing Weight 59.091 kg, Total Volume: 1,000, Start date: 01/23/18 15:57:00 TAPE COATER, Duration: 30 day, Stop date: 02/22/18 15:56:00 TAPE COATER, 1.58, [id number]: PREMIX IV - Do Not Alter WASTE: F/P - Sink; E - Municipal Trash Bin Inactive 01/23/2018 [facility] Sucralfate 100 MG/ML Oral Suspension [Carafate] 1 gm, 1 tab, Route: PO, Drug form: TAB, QID, Dosing Weight 59.091, kg, Start date: 01/23/18 9:00:00 TAPE COATER, Duration: 30 day, Stop date: 02/21/18 21:00:00 CSTNotes: May interfere w/enteral feeds - Take 1 hr before or 2 hr after antacids, dairy pdt, meals & minerals - On empty stomach. For patients unable to swallow tablet, dissolve in 10mL - 30mL of water or juice and stir before giving. (Same As: Carafate) No Longer Active 01/23/2018 [facility] Sodium Chloride 0.9% IV 1,000 mL 1,000 mL, Rate: 25 ml/hr, Infuse over: 40 hr, Route: IV, Dosing Weight 59.091 kg, Total Volume: 1,000, Start date: 01/23/18 8:24:00 TAPE COATER, Duration: 1 day, Stop date: 01/24/18 8:23:00 TAPE COATER, 1.58, m2 Inactive 01/23/2018 [facility] Amlodipine 10 mg, 2 tab, Route: PO, Drug form: TAB, Daily, Dosing Weight 59.091, kg, Start date: 01/22/18 9:00:00 TAPE COATER, Duration: 30 day, Stop date: 03/22/18 9:00:00 CSTNotes: (Same as: Norvasc) No Longer Active 01/22/2018 [facility] Sertraline 100 mg, 1 tab, Route: PO, Drug form: TAB, Daily, Dosing Weight 59.091, kg, Start date: 01/22/18 9:00:00 TAPE COATER, Duration: 30 day, Stop date: 03/22/18 9:00:00 CSTNotes: (Same as: Zoloft) No Longer Active 01/22/2018 [facility] Protonix 40 mg, 1 tab, Route: PO, Drug form: ECTAB, Daily, Dosing Weight 59.091, kg, Start date: 01/22/18 9:00:00 TAPE COATER, Duration: 30 day, Stop date: 02/20/18 9:00:00 CSTNotes: Tablet should not be chewed or crushed. (Same as: Protonix) No Longer Active 01/22/2018 [facility] 24 HR Metoprolol Tartrate 25 MG Extended Release Tablet [Toprol] 25 mg, 1 tab, Route: PO, Drug form: ERTAB, Daily, Start date: 01/22/18 9:00:00 TAPE COATER, Duration: 30 day, Stop date: 03/22/18 9:00:00 CSTNotes: (Same as: Toprol XL) Do Not Crush No Longer Active 01/22/2018 [facility] gabapentin 300 MG Oral Capsule 300 mg, 1 cap, Route: PO, Drug form: CAP, Daily, Dosing Weight 59.091, kg, Start date: 01/22/18 9:00:00 TAPE COATER, Duration: 30 day, Stop date: 02/20/18 9:00:00 CSTNotes: (Same as: Neurontin) No Longer Active 01/22/2018 [facility] sodium bicarbonate 8.4% 50 mEq, 50 ml, Route: IVP, Drug Form: INJ, Dosing Weight 59.091, kg, ONCE, Start date: 01/22/18 6:44:00 TAPE COATER, Stop date: 01/22/18 6:44:00 CSTNotes: (sodium bicarb 8.4% (1 mEq/ml) 50 ml syringe) Inactive 01/22/2018 [facility] Magnesium Sulfate 2 gm, 50 mL, Route: IV, Drug form: INJ, ONCE, Dosing Weight 59.091, kg, Start date: 01/22/18 6:43:00 TAPE COATER, Stop date: 01/22/18 6:43:00 CSTNotes: WASTE: F/P - Sink; E - Municipal Trash Bin Inactive 01/22/2018 [facility] Water 1000 MG/ML Injectable Solution 1,000 mL, Rate: 125 ml/hr, Infuse over: 9.2 hr, Route: IV, Dosing Weight 59.091 kg, Total Volume: 1,150, Start date: 01/22/18 6:43:00 TAPE COATER, Duration: 30 day, Stop date: 02/21/18 6:42:00 TAPE COATER, 1.58, [id number]: (sodium bicarb 8.4% (1 mEq/ml) 50 ml VL) No Longer Active 01/22/2018 [facility] carvedilol 6.25 mg, 2 tab, Route: PO, Drug form: TAB, BID, Dosing Weight 59.091, kg, Start date: 01/21/18 21:00:00 TAPE COATER, Duration: 30 day, Stop date: 02/20/18 9:00:00 CSTNotes: Give with food. (Same As: Coreg) Inactive 01/22/2018 [facility] sennosides, SHELTER 17.2 mg, 2 tab, Route: PO, Drug Form: TAB, Dosing Weight 59.091, kg, Bedtime, Start date: 01/21/18 21:00:00 TAPE COATER, Duration: 30 day, Stop date: 02/19/18 21:00:00 CSTNotes: (Same as: Senokot) No Longer Active 01/22/2018 [facility] Insulin Lispro 2 unit, 0.02 mL, Route: SUB-Q, Drug form: SOLN, Bedtime, Dosing Weight 59.091, kg, PRN Blood Glucose Results, Start date: 01/21/18 17:44:00 TAPE COATER, Duration: 30 day, Stop date: 02/20/18 17:43:00 CSTNotes: (Same as: Humalog ) Roll in palms of hands gently; Do not shake `vigorously. "Single Patient Use Only " WASTE: F/P - Black; E - Municipal Trash Bin Stable for 28 days at room temperature. Expires in days from Date No Longer Active 01/21/2018 [facility] Glucagon 1 mg, Route: IM, PRN, Dosing Weight 59.091, kg, PRN Blood Glucose Results, Start date: 01/21/18 17:44:00 TAPE COATER, Duration: 30 day, Stop date: 02/20/18 17:43:00 TAPE COATER Inactive 01/21/2018 [facility] Dextrose 50% Syringe 50 mL, Route: IVP, Dosing Weight 59.091, kg, PRN, PRN Blood Glucose Results, Start date: 01/21/18 17:44:00 TAPE COATER, Duration: 30 day, Stop date: 02/20/18 17:43:00 TAPE COATER Inactive 01/21/2018 [facility] Morphine 2 mg, 1 mL, Route: IV, Drug form: SOLN, Q4H, Dosing Weight 59.091, kg, PRN Pain Score 6-10, Start date: 01/21/18 17:41:00 TAPE COATER, Duration: 30 day, Stop date: 02/20/18 17:40:00 TAPE COATER No Longer Active 01/21/2018 [facility] Phenergan 12.5 mg, 0.5 mL, Route: IVPB, Q6H, Dosing Weight 59.091, kg, PRN as needed for nausea/vomiting, Start date: 01/21/18 17:41:00 TAPE COATER, Duration: 30 day, Stop date: 02/20/18 17:40:00 CSTNotes: Do not give IV push. (Same as: Phenergan) No Longer Active 01/21/2018 [facility] NS (Bolus) IV 1,000 mL, 500 ml/hr, Infuse Over: 2 hr, Route: IV, 1,000, Drug form: INJ, ONCE, Priority: STAT, Dosing Weight 59.091 kg, Start date: 01/21/18 17:39:00 TAPE COATER, Stop date: 01/21/18 17:39:00 TAPE COATER Inactive 01/21/2018 [facility] Docusate 100 mg, 1 cap, Route: PO, Drug form: CAP, BID, Dosing Weight 59.091, kg, Start date: 01/21/18 17:00:00 TAPE COATER, Duration: 30 day, Stop date: 02/20/18 9:00:00 CSTNotes: (Same as: Colace) (Do Not Crush) No Longer Active 01/21/2018 [facility] Metoprolol Succinate ER 50 mg oral tablet, extended release 50 mg=1 tab, PO, Daily, TAKE 1 TABLET BY MOUTH EVERY DAY Active 01/21/2018 [facility] Lorazepam 0.5 mg, 1 tab, Route: PO, Drug form: TAB, BID, Dosing Weight 59.091, kg, PRN Anxiety, Start date: 01/21/18 12:38:00 TAPE COATER, Duration: 30 day, Stop date: 02/20/18 12:37:00 CSTNotes: (Same as: Ativan) No Longer Active 01/21/2018 [facility] Phenergan 25 mg, 1 mL, Route: IVPB, Q6H, Dosing Weight 59.091, kg, PRN Nausea & Vomiting, Start date: 01/21/18 12:37:00 TAPE COATER, Duration: 30 day, Stop date: 02/20/18 12:36:00 CSTNotes: Do not give IV push. (Same as: Phenergan) Inactive 01/21/2018 [facility] Acetaminophen 325 MG / Hydrocodone Bitartrate 5 MG Oral Tablet [[place] 5/325] 1 tab, Route: PO, Drug Form: TAB, Dosing Weight 59.091, kg, Q6H, PRN Pain Score 1-3, Start date: 01/21/18 12:35:00 TAPE COATER, Duration: 30 day, Stop date: 02/20/18 12:34:00 CSTNotes: (Same as: [place] 325/5) Do not exceed 4gm/day of acetaminophen. No Longer Active 01/21/2018 [facility] Morphine 4 mg, 1 mL, Route: IVP, Drug form: SOLN, Q4H, Dosing Weight 59.091, kg, PRN Pain Score 7-10, Start date: 01/21/18 12:35:00 TAPE COATER, Duration: 30 day, Stop date: 02/20/18 12:34:00 CSTNotes: (Same as:MORPhine Sulfate) Inactive 01/21/2018 [facility] NS (Bolus) IV 1,000 mL, 500 ml/hr, Infuse Over: 2 hr, Route: IV, 1,000, Drug form: INJ, ONCE, Priority: STAT, Dosing Weight 59.091 kg, Start date: 01/21/18 12:33:00 TAPE COATER, Stop date: 01/21/18 12:33:00 TAPE COATER Inactive 01/21/2018 [facility] Magnesium Sulfate 2 gm, 50 mL, Route: IVPB, Drug form: INJ, ONCE, Dosing Weight 59.091, kg, Start date: 01/21/18 12:32:00 TAPE COATER, Stop date: 01/21/18 12:32:00 CSTNotes: WASTE: F/P - Sink; E - Municipal Trash Bin Inactive 01/21/2018 [facility] Morphine 4 mg, Route: IVP, ONCE, Dosing Weight 59.091, kg, Start date: 01/21/18 10:30:00 TAPE COATER, Stop date: 01/21/18 10:30:00 TAPE COATER Inactive 01/21/2018 [facility] NS 1,000 mL 1,000 mL, Rate: 125 ml/hr, Infuse over: 8 hr, Route: IV, Dosing Weight 59.091 kg, Total Volume: 1,000, Start date: 01/21/18 10:10:00 TAPE COATER, Duration: 30 day, Stop date: 02/20/18 10:09:00 TAPE COATER, 1.58, m2 No Longer Active 01/21/2018 [facility] NS 500 mL 500 mL, Rate: 1,000 ml/hr, Infuse over: 0.5 hr, Route: IV, Dosing Weight 59.091 kg, Total Volume: 500, Start date: 01/21/18 10:10:00 TAPE COATER, Duration: 1 doses or times, Stop date: 01/21/18 14:09:00 TAPE COATER, Bolus Dose, 1.58, m2 Inactive 01/21/2018 [facility] Dextrose 50% Syringe 25 gm, 50 mL, Route: IVP, Drug Form: INJ, Dosing Weight 59.091, kg, PRN, PRN Blood Glucose Results, Start date: 01/21/18 9:40:00 TAPE COATER, Duration: 30 day, Stop date: 02/20/18 9:39:00 TAPE COATER No Longer Active 01/21/2018 [facility] Glucagon 1 mg, Route: IM, Drug form: PDR/INJ, PRN, Dosing Weight 59.091, kg, PRN Blood Glucose Results, Start date: 01/21/18 9:40:00 TAPE COATER, Duration: 30 day, Stop date: 02/20/18 9:39:00 TAPE COATER No Longer Active 01/21/2018 [facility] Acetaminophen 650 mg, 2 tab, Route: PO, Drug form: TAB, Q4H, Dosing Weight 59.091, kg, PRN For Temp > 100.4 F, Start date: 01/21/18 9:40:00 TAPE COATER, Duration: 30 day, Stop date: 02/20/18 9:39:00 CSTNotes: Do not exceed 4 gm/day. (Same as: Tylenol) No Longer Active 01/21/2018 [facility] Melatonin 3 mg, 1 tab, Route: PO, Drug form: TAB, Bedtime, Dosing Weight 59.091, kg, PRN Insomnia, Start date: 01/21/18 9:40:00 TAPE COATER, Duration: 30 day, Stop date: 02/20/18 9:39:00 CSTNotes: (Same as: Melatonin) No Longer Active 01/21/2018 [facility] Ondansetron 4 mg, 2 mL, Route: IVP, Drug form: INJ, Q8H, Dosing Weight 59.091, kg, PRN Nausea & Vomiting, Start date: 01/21/18 9:40:00 TAPE COATER, Duration: 30 day, Stop date: 02/20/18 9:39:00 CSTNotes: (Same as: Zofran) MEDICATION WASTE Product Size: 4 mg Product Wasted: ___ mg No Longer Active 01/21/2018 [facility] Metoprolol 5 mg, Route: IVP, Drug form: INJ, ONCE, Dosing Weight 59.091, kg, Priority: STAT, Start date: 01/21/18 9:37:00 TAPE COATER, Stop date: 01/21/18 9:37:00 TAPE COATER Inactive 01/21/2018 [facility] Morphine 4 mg, 1 mL, Route: IVP, Drug form: SOLN, ONCE, Dosing Weight 59.091, kg, Priority: STAT, Start date: 01/21/18 8:05:00 TAPE COATER, Stop date: 01/21/18 8:05:00 CSTNotes: (Same as:MORPhine Sulfate) Inactive 01/21/2018 [facility] Sodium Chloride 0.9% (Bolus) IV 1,000 mL, 1000 ml/hr, Infuse Over: 1 hr, Route: IV, 1,000, Drug form: INJ, ONCE, Priority: STAT, Dosing Weight 59.091 kg, Start date: 01/21/18 7:58:00 TAPE COATER, Stop date: 01/21/18 7:58:00 TAPE COATER Inactive 01/21/2018 [facility] Ondansetron 4 mg, Route: IVP, Drug form: INJ, ONCE, Dosing Weight 59.091, kg, Priority: STAT, Start date: 01/21/18 6:36:00 TAPE COATER, Stop date: 01/21/18 6:36:00 TAPE COATER Inactive 01/21/2018 [facility] Sodium Chloride 0.9% (Bolus) IV 1,000 mL, Infuse Over: 1 hr, Route: IV, ONCE, Priority: STAT, Dosing Weight 59.091 kg, Start date: 01/21/18 6:36:00 TAPE COATER, Stop date: 01/21/18 6:36:00 TAPE COATER Inactive 01/21/2018 [facility] Morphine 4 mg, Route: IVP, ONCE, Dosing Weight 59.091, kg, Priority: STAT, Start date: 01/21/18 6:36:00 TAPE COATER, Stop date: 01/21/18 6:36:00 TAPE COATER Inactive 01/21/2018 [facility] LORazepam 0.5 mg oral tablet 0.5 mg=1 tab, PO, BID, PRN Anxiety, # 20 tab, 0 Refill(s) Active 01/13/2018 [facility] pantoprazole 40 MG Enteric Coated Tablet [Protonix] 40 mg=1 tab, PO, Daily, # 30 tab, 0 Refill(s), Pharmacy: [facility]/pharmacy #[id number] Active 01/13/2018 [facility] Ondansetron 4 MG Disintegrating Tablet [Zofran] 4 mg=1 tab, PO, Q6H, PRN Nausea & Vomiting, Dissolve tab under tongue, # 30 tab, 0 Refill(s), Pharmacy: [facility]/pharmacy #[id number] Active 01/13/2018 [facility] Hydromorphone 1 mg, 1 mL, Route: IVP, Drug form: SOLN, ONCE, Dosing Weight 60.909, kg, Priority: STAT, Start date: 01/10/18 13:14:00 TAPE COATER, Stop date: 01/10/18 13:14:00 CSTNotes: (Same as: Dilaudid) Inactive 01/10/2018 [facility] Adult Parenteral Nutrition Custom - Central (TPN) 1,850 mL 1,850 mL, Rate: 75 ml/hr, Infuse over: 24.7 hr, Dosing Weight 60.909, kg, Route: IV, Total Volume: 1,850 mL, Start Date: 01/07/18 22:00:00 TAPE COATER, Duration: 24 hr, Stop date: 01/08/18 21:59:00 TAPE COATER, Replace Every: 24.7 hr No Longer Active 01/08/2018 [facility] Adult Parenteral Nutrition Custom - Central (TPN) 1,850 mL 1,850 mL, Rate: 75 ml/hr, Infuse over: 24.7 hr, Dosing Weight 60.909, kg, Route: IV, Total Volume: 1,850 mL, Start Date: 01/06/18 22:00:00 TAPE COATER, Duration: 24 hr, Stop date: 01/07/18 21:59:00 TAPE COATER, Replace Every: 24 hrNotes: Central line only Must use 0.22 micron filter No Longer Active 01/07/2018 [facility] Adult Parenteral Nutrition Custom - Central (TPN) 1,850 mL 1,850 mL, Rate: 75 ml/hr, Infuse over: 24.7 hr, Dosing Weight 60.909, kg, Route: IV, Total Volume: 1,850 mL, Start Date: 01/05/18 22:00:00 TAPE COATER, Duration: 24 hr, Stop date: 01/06/18 21:59:00 TAPE COATER, Replace Every: 24.7 hrNotes: Central line only Must use 0.22 micron filter No Longer Active 01/06/2018 [facility] Insulin Lispro 15 unit, 0.15 mL, Route: SUB-Q, Drug form: SOLN, ONCE, Dosing Weight 60.909, kg, Start date: 01/04/18 22:20:00 TAPE COATER, Stop date: 01/04/18 22:20:00 CSTNotes: (Same as: Humalog ) Roll in palms of hands g ently; Do not shake `vigorously. "Single Patient Use Only " WASTE: F/P - Black; E - Municipal Trash Bin Stable for 28 days at room temperature. Expires in days from Date Inactive 01/05/2018 [facility] Lovenox 30 mg, 0.3 mL, Route: SUB-Q, Drug form: INJ, [id number], Dosing Weight 60.909, kg, For CrCl Notes: (Same as: Lovenox) No Longer Active 01/05/2018 [facility] Adult Parenteral Nutrition Custom - Central (TPN) 1,850 mL 1,850 mL, Rate: 75 ml/hr, Infuse over: 24.7 hr, Dosing Weight 60.909, kg, Route: IV, Total Volume: 1,850 mL, Start Date: 01/04/18 22:00:00 TAPE COATER, Duration: 24 hr, Stop date: 01/05/18 21:59:00 TAPE COATER, Replace Every: 24.7 hrNotes: Central line only Must use 0.22 micron filter No Longer Active 01/05/2018 [facility] insulin glargine 15 unit, 0.15 mL, Route: SUB-Q, Drug form: SOLN, Bedtime, Start date: 01/04/18 21:00:00 TAPE COATER, Duration: 30 day, Stop date: 02/02/18 21:00:00 CSTNotes: (Same as: Lantus) Do not hold insulin without contac ting prescriber WASTE: F/P - Black; E - Municipal Trash Bin "single patient use only" No Longer Active 01/05/2018 [facility] Levemir FlexPen 15 unit, Route: SUB-Q, Bedtime, Dosing Weight 60.909, kg, Start date: 01/04/18 21:00:00 TAPE COATER, Duration: 30 day, Stop date: 02/02/18 21:00:00 TAPE COATER No Longer Active 01/05/2018 [facility] Melatonin 3 mg, 1 tab, Route: PO, Drug form: TAB, Bedtime, Dosing Weight 60.909, kg, PRN Sleep, Start date: 01/04/18 15:50:00 TAPE COATER, Duration: 30 day, Stop date: 02/03/18 15:49:00 CSTNotes: (Same as: Melatonin) No Longer Active 01/04/2018 [facility] Ativan 0.5 mg, 1 tab, Route: PO, Drug form: TAB, TID, Dosing Weight 60.909, kg, PRN Anxiety, Start date: 01/04/18 15:50:00 TAPE COATER, Duration: 30 day, Stop date: 02/03/18 15:49:00 CSTNotes: (Same as: Ativan) No Longer Active 01/04/2018 [facility] Ambien 5 mg, 1 tab, Route: PO, Drug form: TAB, Bedtime, Dosing Weight 60.909, kg, PRN Insomnia, Start date: 01/04/18 15:24:00 TAPE COATER, Duration: 30 day, Stop date: 02/03/18 15:23:00 CSTNotes: (Same As: Ambien) No Longer Active 01/04/2018 [facility] Amlodipine 10 mg, 2 tab, Route: PO, Drug form: TAB, Daily, Dosing Weight 60.909, kg, Start date: 01/04/18 9:00:00 TAPE COATER, Duration: 30 day, Stop date: 02/02/18 9:00:00 CSTNotes: (Same as: Norvasc) No Longer Active 01/04/2018 [facility] carvedilol 6.25 mg, 2 tab, Route: PO, Drug form: TAB, BID, Dosing Weight 60.909, kg, Start date: 01/04/18 9:00:00 TAPE COATER, Duration: 30 day, Stop date: 02/02/18 17:00:00 CSTNotes: Give with food. (Same As: Coreg) No Longer Active 01/04/2018 [facility] Sertraline 100 mg, 1 tab, Route: PO, Drug form: TAB, Daily, Dosing Weight 60.909, kg, Start date: 01/04/18 9:00:00 TAPE COATER, Duration: 30 day, Stop date: 02/02/18 9:00:00 CSTNotes: (Same as: Zoloft) No Longer Active 01/04/2018 [facility] pantoprazole 40 mg, Route: IVP, Drug form: INJ, Q12H, Dosing Weight 60.909, kg, Start date: 01/04/18 9:00:00 TAPE COATER, Duration: 30 day, Stop date: 02/02/18 21:00:00 CSTNotes: For IV push reconstitute with 10 ml 0.9% sod ium chloride and push over 2 minutes. (Same as: Protonix) No Longer Active 01/04/2018 [facility] Octreotide 50 microgram, 0.5 mL, Route: SUB-Q, Drug form: INJ, TID, Dosing Weight 60.909, kg, Start date: 01/04/18 9:00:00 TAPE COATER, Duration: 30 day, Stop date: 02/02/18 17:00:00 CSTNotes: (Same As: SandoSTATIN). Ref rigerate. MEDICATION WASTE Product Size: 100 microgram Product Wasted: ___ microgram No Longer Active 01/04/2018 [facility] 24 HR Metoprolol Tartrate 25 MG Extended Release Tablet [Toprol] 25 mg, 1 tab, Route: PO, Drug form: ERTAB, Daily, Start date: 01/04/18 9:00:00 TAPE COATER, Duration: 30 day, Stop date: 02/02/18 9:00:00 TAPE COATER No Longer Active 01/04/2018 [facility] Adult Parenteral Nutrition Custom - Central (TPN) 1,370 mL 1,370 mL, Rate: 55 ml/hr, Infuse over: 24.9 hr, Dosing Weight 60.909, kg, Route: IV, Total Volume: 1,370 mL, Start Date: 01/03/18 22:00:00 TAPE COATER, Duration: 24 hr, Stop date: 01/04/18 21:59:00 TAPE COATER, Replace Every: 24.9 hr No Longer Active 01/04/2018 [facility] Lorazepam 0.25 mg, 0.5 tab, Route: PO, Drug form: TAB, BID, Dosing Weight 60.909, kg, PRN Anxiety, Start date: 01/03/18 21:39:00 TAPE COATER, Duration: 30 day, Stop date: 02/02/18 21:38:00 CSTNotes: (Same as: Ativan) No Longer Active 01/04/2018 [facility] octreotide 50 mcg/mL injectable solution 50 microgram, SUB-Q, TID, # 1 ml, 0 Refill(s) No Longer Active 01/04/2018 [facility] gabapentin 300 MG Oral Capsule 300 mg=1 cap, PO, Daily, 0 Refill(s) No Longer Active 01/04/2018 [facility] Furosemide 40 MG Oral Tablet [Lasix] 40 mg=1 tab, PO, Daily, # 90 tab, 0 Refill(s) Active 01/04/2018 [facility] 0.4 ML Enoxaparin sodium 100 MG/ML Prefilled Syringe [Lovenox] 40 mg, SUB-Q, Daily, # 7 ea, 0 Refill(s) No Longer Active 01/04/2018 [facility] ziprasidone 5 mg, IM, Q6H, 0 Refill(s) No Longer Active 01/04/2018 [facility] Insulin, Aspart, Human SUB-Q, TID-Before Meals, 0 Refill(s) Active 01/04/2018 [facility] Diclofenac Sodium 0.01 MG/MG Topical Gel 2 gm=, TOP, QID, 0 Refill(s) No Longer Active 01/04/2018 [facility] 1 ML Hydromorphone Hydrochloride 1 MG/ML Prefilled Syringe [Dilaudid] 1 mg=1 ml, IM, Q4H, PRN Pain, 0 Refill(s) No Longer Active 01/04/2018 [facility] LORazepam 0.5 mg oral tablet 0.25 mg=0.5 tab, PO, BID, PRN Anxiety, # 15 tab, 0 Refill(s) No Longer Active 01/04/2018 [facility] 168 HR Clonidine 0.72354 MG/HR Transdermal Patch 1 patch, TOP, qWeek, # 4 patch, 0 Refill(s) No Longer Active 01/04/2018 [facility] carvedilol 6.25 mg oral tablet 6.25 mg=1 tab, PO, BID, # 180 tab, 0 Refill(s) No Longer Active 01/04/2018 [facility] amLODIPine 10 mg oral tablet 10 mg=1 tab, PO, Daily, # 90 tab, 0 Refill(s) Active 01/04/2018 [facility] metoprolol tartrate 25 mg oral tablet 25 mg=1 tab, PO, BID, # 60 tab, 0 Refill(s) No Longer Active 01/04/2018 [facility] Lidocaine 4 %, IV, Daily, 0 Refill(s) No Longer Active 01/04/2018 [facility] Lidocaine 0.05 MG/MG Transdermal Patch TOP, Daily, 0 Refill(s) No Longer Active 01/04/2018 [facility] sertraline 100 mg oral tablet 100 mg=1 tab, PO, Daily, # 30 tab, 0 Refill(s) Active 01/04/2018 [facility] Acetaminophen 325 MG / Hydrocodone Bitartrate 10 MG Oral Tablet [[place] 10/325] 1 tab, PO, Q4H, PRN for pain, # 24 tab, 0 Refill(s) Active 01/04/2018 [facility] Albuterol 0.833 MG/ML / Ipratropium [place] 0.167 MG/ML Inhalant Solution 3 mL, INHALATION, Q6H, PRN Wheezing, # 30 ea, 1 Refill(s) Active 01/04/2018 [facility] pantoprazole 40 mg intravenous injection 40 mg, IV, Q12H, 0 Refill(s) No Longer Active 01/04/2018 [facility] Hydralazine 10 mg, IV, Q4H, PRN Hypertension, 0 Refill(s) No Longer Active 01/04/2018 [facility] Ondansetron 2 MG/ML Injectable Solution [Zofran] 4 mg=2 ml, IV, Q6H, PRN Nausea & Vomiting, # 1 ea, 0 Refill(s) No Longer Active 01/04/2018 [facility] Metoclopramide 5 mg, IV, 0 Refill(s) No Longer Active 01/04/2018 [facility] Acetaminophen 650 mg, PO, Q6H, PRN Pain 4-6/Temp > 100.4 F, 0 Refill(s) Active 01/04/2018 [facility] Tylenol 650 mg, 2 tab, Route: PO, Drug form: TAB, Q6H, Dosing Weight 60.909, kg, PRN Pain 1-3/Temp > 100.4 F, Start date: 01/03/18 14:56:00 TAPE COATER, Duration: 30 day, Stop date: 02/02/18 14:55:00 CSTNotes: Do not exceed 4 gm/day. (Same as: Tylenol) No Longer Active 01/03/2018 [facility] Adult Parenteral Nutrition Custom - Central (TPN) 1,370 mL 1,370 mL, Rate: 55 ml/hr, Infuse over: 24.9 hr, Dosing Weight 60.909, kg, Route: IV Central, Total Volume: 1,370 mL, Start Date: 01/02/18 22:00:00 TAPE COATER, Duration: 24 hr, Stop date: 01/03/18 21:59:00 TAPE COATER, Replace Every: 24.9 hrNotes: Central line only Must use 0.22 micron filter No Longer Active 01/03/2018 [facility] Insulin Lispro 15 unit, 0.15 mL, Route: SUB-Q, Drug form: SOLN, Sliding Scale, Dosing Weight 60.909, kg, PRN Blood Glucose Results, Start date: 01/02/18 18:41:00 TAPE COATER, Duration: 30 day, Stop date: 02/01/18 18:40:00 TAPE COATER Notes: (Same as: Humalog ) Roll in palms of hands gently; Do not shake `vigorously. "Single Patient Use Only " WASTE: F/P - Black; E - [employer] Trash Bin Stable for 28 days at room temperature. Expires in days from Date No Longer Active 01/03/2018 [facility] Dextrose 50% Syringe 25 gm, 50 mL, Route: IVP, Drug Form: INJ, Dosing Weight 60.909, kg, PRN, PRN Blood Glucose Results, Start date: 01/02/18 18:41:00 TAPE COATER, Duration: 30 day, Stop date: 02/01/18 18:40:00 TAPE COATER No Longer Active 01/03/2018 [facility] Glucagon 1 mg, Route: IM, Drug form: PDR/INJ, PRN, Dosing Weight 60.909, kg, PRN Blood Glucose Results, Start date: 01/02/18 18:41:00 TAPE COATER, Duration: 30 day, Stop date: 02/01/18 18:40:00 TAPE COATER No Longer Active 01/03/2018 [facility] Insulin Lispro 5 unit, 0.05 mL, Route: SUB-Q, Drug form: SOLN, ONCE, Dosing Weight 60.909, kg, Start date: 01/02/18 4:18:00 TAPE COATER, Stop date: 01/02/18 4:18:00 CSTNotes: (Same as: Humalog ) Roll in palms of hands gent ly; Do not shake `vigorously. "Single Patient Use Only " WASTE: F/P - Black; E - Municipal Trash Bin Stable for 28 days at room temperature. Expires in days from Date Inactive 01/02/2018 [facility] heparin 5,000 unit, 1 mL, Route: SUB-Q, Drug form: INJ, Q12H, Dosing Weight 60.909, kg, Start date: 01/01/18 21:00:00 TAPE COATER, Duration: 30 day, Stop date: 01/31/18 9:00:00 CSTNotes: porcine heparin No Longer Active 01/02/2018 [facility] Clonidine Hydrochloride 0.1 MG Oral Tablet 0.1 mg, 1 tab, Route: PO, Drug form: TAB, Q8H, Dosing Weight 60.909, kg, PRN Hypertension, Start date: 01/01/18 14:49:00 TAPE COATER, Duration: 30 day, Stop date: 01/31/18 14:48:00 TAPE COATER, SBP >160Notes: (Same As: Catapres) No Longer Active 01/01/2018 [facility] Zofran 4 mg, 2 mL, Route: IVP, Drug form: INJ, Q8H, Dosing Weight 60.909, kg, PRN as needed for nausea/vomiting, Priority: STAT, Start date: 01/01/18 14:49:00 TAPE COATER, Duration: 30 day, Stop date: 01/31/18 14:48:00 CSTNotes: (Same as: Zofran) MEDICATION WASTE Product Size: 4 mg Product Wasted: ___ mg No Longer Active 01/01/2018 [facility] Insulin Lispro 4 unit, 0.04 mL, Route: SUB-Q, Drug form: SOLN, Bedtime, Dosing Weight 60.909, kg, PRN Blood Glucose Results, Start date: 01/01/18 14:47:00 TAPE COATER, Duration: 30 day, Stop date: 01/31/18 14:46:00 CSTNotes: (Same as: Humalog ) Roll in palms of hands gently; Do not shake `vigorously. "Single Patient Use Only " WASTE: F/P - Black; E - Municipal Trash Bin Stable for 28 days at room temperature. Expires in days from Date No Longer Active 01/01/2018 [facility] Glucagon 1 mg, Route: IM, Drug form: PDR/INJ, PRN, Dosing Weight 60.909, kg, PRN Blood Glucose Results, Start date: 01/01/18 14:47:00 TAPE COATER, Duration: 30 day, Stop date: 01/31/18 14:46:00 TAPE COATER No Longer Active 01/01/2018 [facility] Dextrose 50% Syringe 12.5 gm, 25 mL, Route: IVP, Drug Form: INJ, Dosing Weight 60.909, kg, PRN, PRN Blood Glucose Results, Start date: 01/01/18 14:47:00 TAPE COATER, Duration: 30 day, Stop date: 01/31/18 14:46:00 TAPE COATER No Longer Active 01/01/2018 [facility] sodium bicarbonate 8.4% additive 75 mEq + D5W 1/2NS 1,000 mL 1,000 mL, Rate: 125 ml/hr, Infuse over: 8.6 hr, Route: IV, Dosing Weight 60.909 kg, Total Volume: 1,075, Start date: 01/01/18 12:45:00 TAPE COATER, Duration: 30 day, Stop date: 01/31/18 12:44:00 TAPE COATER, 1.6, [id number]: (sodium bicarb 8.4% (1 mEq/ml) 50 ml VL) No Longer Active 01/01/2018 [facility] NS 500 mL 500 mL, Rate: 1,000 ml/hr, Infuse over: 0.5 hr, Route: IV, Dosing Weight 60.909 kg, Total Volume: 500, Start date: 01/01/18 12:45:00 TAPE COATER, Duration: 1 doses or times, Stop date: 01/01/18 13:14:00 TAPE COATER, Bolus Dose, 1.6, m2 Inactive 01/01/2018 [facility] Dilaudid 1 mg, 1 mL, Route: IV, Drug form: SOLN, Q12H, Dosing Weight 60.909, kg, PRN Dressing Change, Start date: 01/01/18 10:26:00 TAPE COATER, Stop date: 01/31/18 9:26:00 CSTNotes: (Same as: Dilaudid) No Longer Active 01/01/2018 [facility] Acetaminophen 325 MG / Hydrocodone Bitartrate 10 MG Oral Tablet [[place] 10/325] 1 tab, Route: PO, Drug Form: TAB, Dosing Weight 60.909, kg, Q6H, PRN Pain Score 4-6, Start date: 01/01/18 10:26:00 TAPE COATER, Duration: 30 day, Stop date: 01/31/18 10:25:00 CSTNotes: Do not exceed 4gm/day of acetaminophen. (Same as: [place] 325/10) No Longer Active 01/01/2018 [facility] Dilaudid 1 mg, 1 mL, Route: IV, Drug form: SOLN, Q6H, Dosing Weight 60.909, kg, PRN Pain Score 4-6, Start date: 01/01/18 8:31:00 TAPE COATER, Stop date: 01/31/18 11:00:00 CSTNotes: (Same as: Dilaudid) Inactive 01/01/2018 [facility] Allergies, Adverse Reactions, Alerts Substance Category Reaction Severity Reaction type Status Date Reported Comments Source ibuprofen Assertion Drug allergy Active [facility] Motrin Assertion Drug allergy Active [facility] Immunizations No Data Provided for This Section Results Order Name Results Value Reference Range Date Interpretation Comments Source ELECTROLYTES AGAP 11.2 10.0 - 20.0 03/05/2018 [facility] ELECTROLYTES Sodium Lvl 134 135 - 145 03/05/2018 [facility] ELECTROLYTES Potassium Lvl 3.2 3.5 - 5.1 03/05/2018 [facility] ELECTROLYTES Chloride Lvl 93 95 - 109 03/05/2018 [facility] ELECTROLYTES eGFR 23 03/05/2018 Result Comment: [...] should be multiplied by the estimated BMI. [facility] ELECTROLYTES Calcium Lvl 7.8 8.5 - 10.5 03/05/2018 [facility] ELECTROLYTES Creatinine Lvl 2.18 0.50 - 1.40 03/05/2018 [facility] ELECTROLYTES CO2 33 24 - 32 03/05/2018 [facility] ELECTROLYTES Glucose Lvl 117 70 - 99 03/05/2018 [facility] ELECTROLYTES BUN 41 7 - 22 03/05/2018 [facility] HEMATOLOGY MCH 29.8 27.0 - 31.0 03/05/2018 [facility] HEMATOLOGY MCV 90.3 80.0 - 98.0 03/05/2018 [facility] HEMATOLOGY Hct 29.1 36.0 - 48.0 03/05/2018 [facility] MPV 6.8 7.4 - 10.4 03/05/2018 [facility] HEMATOLOGY Platelet 295 133 - 450 03/05/2018 [facility] HEMATOLOGY RDW 16.3 11.5 - 14.5 03/05/2018 [facility] HEMATOLOGY RBC 3.23 4.20 - 5.40 03/05/2018 [facility] HEMATOLOGY WBC 8.5 3.7 - 10.4 03/05/2018 [facility] Hgb 9.6 12.0 - 16.0 03/05/2018 [facility] MCHC 33.0 32.0 - 36.0 03/05/2018 [facility] CHEM PANEL Glucose Lvl 150 70 - 99 03/04/2018 [facility] CHEM PANEL BUN 50 7 - 22 03/04/2018 [facility] CHEM PANEL Calcium Lvl 7.5 8.5 - 10.5 03/04/2018 [facility] CHEM PANEL Chloride Lvl 93 95 - 109 03/04/2018 [facility] CHEM PANEL CO2 30 24 - 32 03/04/2018 [facility] CHEM PANEL AGAP 15.7 10.0 - 20.0 03/04/2018 [facility] CHEM PANEL eGFR 20 03/04/2018 Result [...] Sodium Lvl 135 135 - 145 03/04/2018 [facility] CHEM PANEL Potassium Lvl 3.7 3.5 - 5.1 03/04/2018 [facility] CHEM PANEL Creatinine Lvl 2.41 0.50 - 1.40 03/04/2018 [facility] CHEM PANEL eGFR 14 03/03/2018 Result [...] Glucose Lvl 211 70 - 99 03/03/2018 [facility] CHEM PANEL Creatinine Lvl 3.34 0.50 - 1.40 03/03/2018 [facility] CHEM PANEL Potassium Lvl 3.5 3.5 - 5.1 03/03/2018 [facility] CHEM PANEL Sodium Lvl 134 135 - 145 03/03/2018 [facility] CHEM PANEL Chloride Lvl 88 95 - 109 03/03/2018 [facility] CHEM PANEL Calcium Lvl 8.3 8.5 - 10.5 03/03/2018 [facility] CHEM PANEL CO2 31 24 - 32 03/03/2018 [facility] CHEM PANEL AGAP 18.5 10.0 - 20.0 03/03/2018 [facility] CHEM PANEL Magnesium Lvl 2.8 1.8 - 2.4 03/01/2018 [facility] CHEM PANEL Phosphorus 3.5 2.5 - 4.5 03/01/2018 [facility] PARATHYROID PROFILE Ca Ion WB 1.15 1.05 - 1.25 03/01/2018 [facility] PARATHYROID PROFILE Ca Norm WB 1.15 1.05 - 1.25 03/01/2018 [facility] CHEM PANEL Phosphorus 4.2 2.5 - 4.5 02/28/2018 [facility] CHEM PANEL Magnesium Lvl 0.5 1.8 - 2.4 02/28/2018 Result Comment: Critical Result(s) called to Pushpa Hester at 02/28/2018 10:16 by DMF. Read back OK. [facility] CHEM PANEL Phosphorus 2.1 2.5 - 4.5 02/28/2018 [facility] CHEM PANEL Magnesium Lvl <0.3 1.8 - 2.4 02/28/2018 Result Comment: Critical Result(s) called to RN. Milly Thao at 02/28/2018 05:40 by drt. Read back OK. [facility] CHEM PANEL Vitamin D, 25-OH, Total 24.8 30.0 - 100.0 02/27/2018 [facility] PARATHYROID PROFILE PTH Intact 50.3 18.4 - 80.1 02/27/2018 [facility] HEMATOLOGY Lymphocytes # 2.3 1.0 - 5.5 02/27/2018 [facility] HEMATOLOGY Basophils # 0.1 0.0 - 0.2 02/27/2018 [facility] HEMATOLOGY Monocytes # 1.0 0.0 - 0.8 02/27/2018 [facility] HEMATOLOGY Eosinophils # 0.2 0.0 - 0.5 02/27/2018 [facility] HEMATOLOGY Neutrophils # 5.2 1.5 - 8.1 02/27/2018 [facility] HEMATOLOGY Basophils 1.0 0.0 - 1.0 02/27/2018 [facility] HEMATOLOGY Eosinophils 2.0 0.0 - 4.0 02/27/2018 [facility] HEMATOLOGY Lymphocytes 26.5 20.0 - 40.0 02/27/2018 [facility] HEMATOLOGY Monocytes 11.6 2.0 - 12.0 02/27/2018 [facility] HEMATOLOGY Segs 58.9 45.0 - 75.0 02/27/2018 [facility] HEMATOLOGY MCHC 32.6 32.0 - 36.0 02/27/2018 [facility] HEMATOLOGY MPV 6.9 7.4 - 10.4 02/27/2018 [facility] HEMATOLOGY Platelet 382 133 - 450 02/27/2018 [facility] HEMATOLOGY RDW 16.5 11.5 - 14.5 02/27/2018 [facility] HEMATOLOGY MCH 29.5 27.0 - 31.0 02/27/2018 [facility] HEMATOLOGY MCV 90.4 80.0 - 98.0 02/27/2018 [facility] HEMATOLOGY RBC 3.24 4.20 - 5.40 02/27/2018 [facility] HEMATOLOGY WBC 8.8 3.7 - 10.4 02/27/2018 [facility] HEMATOLOGY Hct 29.3 36.0 - 48.0 02/27/2018 [facility] HEMATOLOGY Hgb 9.6 12.0 - 16.0 02/27/2018 [facility] HEMATOLOGY MCV 88.6 80.0 - 98.0 02/26/2018 [facility] HEMATOLOGY MCH 29.8 27.0 - 31.0 02/26/2018 [facility] HEMATOLOGY MCHC 33.7 32.0 - 36.0 02/26/2018 [facility] HEMATOLOGY MPV 6.5 7.4 - 10.4 02/26/2018 [facility] HEMATOLOGY Hct 25.7 36.0 - 48.0 02/26/2018 [facility] HEMATOLOGY Platelet 432 133 - 450 02/26/2018 [facility] HEMATOLOGY RDW 16.1 11.5 - 14.5 02/26/2018 [facility] HEMATOLOGY WBC 9.9 3.7 - 10.4 02/26/2018 [facility] HEMATOLOGY RBC 2.91 4.20 - 5.40 02/26/2018 [facility] HEMATOLOGY Hgb 8.7 12.0 - 16.0 02/26/2018 [facility] LIPIDS Chol 106 <=199 mg/dL 02/26/2018 [facility] LIPIDS Trig 220 <=149 mg/dL 02/26/2018 [facility] LIPIDS HDL 34 >=61 mg/dL 02/26/2018 [facility] LIPIDS LDL (Calculated) 28 <=99 mg/dL 02/26/2018 [facility] LIPIDS VLDL 44 02/26/2018 [facility] LIPIDS CHD Risk 3.12 3.90 - 5.80 02/26/2018 [facility] SPECIAL CHEMISTRY Hgb A1C 6.6 <=5.6 % 02/26/2018 [facility] URINE AND STOOL UA RBC 132 0 - 2 02/26/2018 [facility] URINE AND STOOL UA Sq Epi Many /LPF Few /LPF 02/26/2018 [facility] URINE AND STOOL UA WBC >182 0 - 5 02/26/2018 [facility] URINE AND STOOL UA Bacteria Occasional /HPF None Seen /HPF 02/26/2018 [facility] URINE AND STOOL UA Mucus Few /LPF None Seen /LPF 02/26/2018 [facility] URINE AND STOOL UA Nitrite Negative (02/25/18 11:35 PM) Negative 02/26/2018 [facility] URINE AND STOOL UA Leuk Est Small *ABN* (02/25/18 11:35 PM) Negative 02/26/2018 [facility] URINE AND STOOL UA Urobilinogen 0.2 0.1 - 1.0 02/26/2018 [facility] URINE AND STOOL UA Protein 100 mg/dL Negative mg/dL 02/26/2018 [facility] URINE AND STOOL UA Color Yellow *NA* (02/25/18 11:35 PM) Yellow 02/26/2018 [facility] URINE AND STOOL UA Turbidity Cloudy *ABN* (02/25/18 11:35 PM) Clear 02/26/2018 [facility] URINE AND STOOL UA pH 5.5 5.0 - 8.0 02/26/2018 [facility] URINE AND STOOL UA Spec Grav >=1.030 *ABN* (02/25/18 11:35 PM) <=1.030 02/26/2018 [facility] URINE AND STOOL UA Blood Large *ABN* (02/25/18 11:35 PM) Negative 02/26/2018 [facility] URINE AND STOOL UA Glucose 100 mg/dL Negative mg/dL 02/26/2018 [facility] URINE AND STOOL UA Bili Moderate *ABN* (02/25/18 11:35 PM) Negative 02/26/2018 [facility] URINE AND STOOL UA Ketones Trace *ABN* (02/25/18 11:35 PM) Negative 02/26/2018 [facility] URINE CHEM U Creatinine 213.00 02/26/2018 [facility] URINE CHEM U Sodium 6 02/26/2018 [facility] Culture: Urine Specimen contains 3 or more potential pathogens; recommend correlation with urinalysis; if catheterized specimen recommend removal and recollection. If clinical situation warrants please call the laboratory for further testing. [place] [facility] [phone]. 02/26/2018 [facility] HEMATOLOGY Monocytes # 0.9 0.0 - 0.8 02/26/2018 [facility] HEMATOLOGY Basophils # 0.1 0.0 - 0.2 02/26/2018 [facility] HEMATOLOGY Lymphocytes # 1.7 1.0 - 5.5 02/26/2018 [facility] HEMATOLOGY Neutrophils # 10.8 1.5 - 8.1 02/26/2018 [facility] HEMATOLOGY Basophils 0.6 0.0 - 1.0 02/26/2018 [facility] HEMATOLOGY RBC Morph Normal (02/25/18 6:29 PM) 02/26/2018 [facility] HEMATOLOGY Plt Morph Normal (02/25/18 6:29 PM) 02/26/2018 [facility] HEMATOLOGY Segs 80.6 45.0 - 75.0 02/26/2018 [facility] Monocytes 6.4 2.0 - 12.0 02/26/2018 [facility] HEMATOLOGY Eosinophils 0.1 0.0 - 4.0 02/26/2018 [facility] Lymphocytes 12.3 20.0 - 40.0 02/26/2018 [facility] CHEM PANEL A/G Ratio 0.5 0.7 - 1.6 02/25/2018 [facility] CHEM PANEL Albumin Lvl 2.1 3.5 - 5.0 02/25/2018 [facility] CHEM PANEL Globulin 4.5 2.7 - 4.2 02/25/2018 [facility] CHEM PANEL Total Protein 6.6 6.4 - 8.4 02/25/2018 [facility] CHEM PANEL AST 22 0 - 37 02/25/2018 [facility] CHEM PANEL Alk Phos 70 39 - 136 02/25/2018 [facility] CHEM PANEL Bili Total 0.3 0.2 - 1.3 02/25/2018 [facility] CHEM PANEL ALT 11 0 - 65 02/25/2018 [facility] CHEM PANEL B/C Ratio 20 6 - 25 02/25/2018 [facility] CHEM PANEL Lactic Acid Lvl 1.1 0.5 - 2.2 02/25/2018 [facility] CHEM PANEL Procalcitonin Lvl 0.30 0.00 - 0.10 02/25/2018 [facility] URINE AND STOOL UA Protein 100 mg/dL Negative mg/dL 02/25/2018 [facility] URINE AND STOOL UA Glucose Negative (02/25/18 3:19 PM) Negative 02/25/2018 [facility] URINE AND STOOL UA Bili Small *ABN* (02/25/18 3:19 PM) Negative 02/25/2018 [facility] URINE AND STOOL UA Urobilinogen 0.2 0.1 - 1.0 02/25/2018 [facility] URINE AND STOOL UA Ketones Trace [...] UA pH 5.5 5.0 - 8.0 02/25/2018 [facility] URINE AND STOOL UA Bacteria Moderate /HPF None Seen /HPF 02/25/2018 [facility] URINE AND STOOL UA Mucus Few /LPF None Seen /LPF 02/25/2018 [facility] URINE AND STOOL UA WBC >182 /HPF 0 - 5 02/25/2018 [facility] URINE AND STOOL UA Leuk Est Moderate *ABN* (02/25/18 3:19 PM) Negative 02/25/2018 [facility] URINE AND STOOL UA Sq Epi Occasional /LPF Few /LPF 02/25/2018 [facility] URINE AND STOOL UA Nitrite Negative (02/25/18 3:19 PM) Negative 02/25/2018 [facility] URINE AND STOOL UA RBC 3-5 /HPF 0 - 2 02/25/2018 [facility] URINE AND STOOL UA Color See Note 6 (02/25/18 3:19 PM) Yellow 02/25/2018 Result Comment: Urine color is white(mucus)on 02/25/2018 16:39 by Jerome. [facility] CHEM PANEL Lipase Lvl 78 73 - 393 02/25/2018 [facility] CHEM PANEL Amylase Lvl 24 25 - 115 02/25/2018 [facility] HEMATOLOGY PTT 39.4 22.9 - 35.8 02/25/2018 [facility] HEMATOLOGY INR 1.20 0.85 - 1.17 02/25/2018 [facility] HEMATOLOGY PT 15.0 12.0 - 14.7 02/25/2018 [facility] HEMATOLOGY Basophils # 0.1 0.0 - 0.2 02/25/2018 [facility] HEMATOLOGY Lymphocytes # 1.6 1.0 - 5.5 02/25/2018 [facility] HEMATOLOGY Eosinophils # 0.1 0.0 - 0.5 02/25/2018 [facility] HEMATOLOGY Monocytes # 1.2 0.0 - 0.8 02/25/2018 [facility] HEMATOLOGY Neutrophils # 13.7 1.5 - 8.1 02/25/2018 [facility] HEMATOLOGY Basophils 0.7 0.0 - 1.0 02/25/2018 [facility] HEMATOLOGY Eosinophils 0.4 0.0 - 4.0 02/25/2018 [facility] HEMATOLOGY Lymphocytes 9.4 20.0 - 40.0 02/25/2018 [facility] HEMATOLOGY Segs 82.5 45.0 - 75.0 02/25/2018 [facility] HEMATOLOGY Monocytes 7.0 2.0 - 12.0 02/25/2018 [facility] CHEM PANEL AST 21 0 - 37 02/25/2018 [facility] CHEM PANEL Alk Phos 87 39 - 136 02/25/2018 [facility] CHEM PANEL Bili Total 0.4 0.2 - 1.3 02/25/2018 [facility] CHEM PANEL ALT 13 0 - 65 02/25/2018 [facility] CHEM PANEL A/G Ratio 0.5 0.7 - 1.6 02/25/2018 [facility] CHEM PANEL B/C Ratio 17 6 - 25 02/25/2018 [facility] CHEM PANEL Total Protein 8.4 6.4 - 8.4 02/25/2018 [facility] CHEM PANEL Albumin Lvl 2.8 3.5 - 5.0 02/25/2018 [facility] CHEM PANEL Globulin 5.6 2.7 - 4.2 02/25/2018 [facility] ELECTROLYTES AGAP 15.6 10.0 - 20.0 02/13/2018 [facility] ELECTROLYTES Calcium Lvl 6.9 8.5 - 10.5 02/13/2018 Result Comment: Critical Result(s) called to Ilana Aguayo at 02/13/2018 07:53 by DMF. Read back OK. [facility] ELECTROLYTES Creatinine Lvl 1.10 0.50 - 1.40 02/13/2018 [facility] ELECTROLYTES Sodium Lvl 144 135 - 145 02/13/2018 [facility] ELECTROLYTES Potassium Lvl 3.6 3.5 - 5.1 02/13/2018 [facility] ELECTROLYTES CO2 19 24 - 32 02/13/2018 [facility] ELECTROLYTES Chloride Lvl 113 95 - 109 02/13/2018 [facility] ELECTROLYTES Glucose Lvl 299 70 - 99 02/13/2018 [facility] ELECTROLYTES BUN 11 7 - 22 02/13/2018 [facility] ELECTROLYTES eGFR 52 02/13/2018 Result Comment: [...] should be multiplied by the estimated BMI. [facility] CHEM PANEL Phosphorus 2.9 2.5 - 4.5 02/11/2018 [facility] CHEM PANEL eGFR 61 02/11/2018 Result [...] should be multiplied by the estimated BMI. [facility] CHEM PANEL Chloride Lvl 118 95 - 109 02/11/2018 [facility] CHEM PANEL Potassium Lvl 3.6 3.5 - 5.1 02/11/2018 [facility] CHEM PANEL AGAP 12.6 10.0 - 20.0 02/11/2018 [facility] CHEM PANEL CO2 15 24 - 32 02/11/2018 [facility] CHEM PANEL Calcium Lvl 6.5 8.5 - 10.5 02/11/2018 Result Comment: Critical Result(s) called to kelly mccloud at 02/11/2018 07:06 by EFA. Read back OK. [facility] CHEM PANEL Glucose Lvl 80 70 - 99 02/11/2018 [facility] CHEM PANEL Sodium Lvl 142 135 - 145 02/11/2018 [facility] CHEM PANEL Creatinine Lvl 0.96 0.50 - 1.40 02/11/2018 [facility] CHEM PANEL BUN 8 7 - 22 02/11/2018 [facility] HEMATOLOGY Monocytes # 0.7 0.0 - 0.8 02/11/2018 [facility] HEMATOLOGY Eosinophils # 0.2 0.0 - 0.5 02/11/2018 [facility] HEMATOLOGY Segs 56.2 45.0 - 75.0 02/11/2018 [facility] HEMATOLOGY Lymphocytes 30.3 20.0 - 40.0 02/11/2018 [facility] HEMATOLOGY Monocytes 10.1 2.0 - 12.0 02/11/2018 [facility] HEMATOLOGY Eosinophils 2.9 0.0 - 4.0 02/11/2018 [facility] HEMATOLOGY Neutrophils # 3.9 1.5 - 8.1 02/11/2018 [facility] HEMATOLOGY Basophils 0.5 0.0 - 1.0 02/11/2018 [facility] HEMATOLOGY Lymphocytes # 2.1 1.0 - 5.5 02/11/2018 [facility] HEMATOLOGY MPV 7.0 7.4 - 10.4 02/11/2018 [facility] HEMATOLOGY MCHC 33.0 32.0 - 36.0 02/11/2018 [facility] HEMATOLOGY RDW 15.4 11.5 - 14.5 02/11/2018 [facility] HEMATOLOGY Platelet 264 133 - 450 02/11/2018 [facility] HEMATOLOGY WBC 7.0 3.7 - 10.4 02/11/2018 [facility] HEMATOLOGY RBC 2.55 4.20 - 5.40 02/11/2018 [facility] HEMATOLOGY Hgb 7.5 12.0 - 16.0 02/11/2018 [facility] HEMATOLOGY Hct 22.6 36.0 - 48.0 02/11/2018 [facility] HEMATOLOGY MCV 88.6 80.0 - 98.0 02/11/2018 [facility] HEMATOLOGY MCH 29.3 27.0 - 31.0 02/11/2018 [facility] URINE AND STOOL UA pH 6.0 5.0 - 8.0 02/08/2018 [facility] URINE AND STOOL UA Urobilinogen <=1.0 mg/dL 0.1 - 1.0 02/08/2018 [facility] URINE AND STOOL UA Spec Grav 1.017 <=1.030 02/08/2018 [facility] URINE AND STOOL UA Turbidity Marked *ABN* (02/07/18 10:19 PM) Clear 02/08/2018 [facility] URINE AND STOOL UA Color Yellow *NA* (02/07/18 10:19 PM) Yellow 02/08/2018 [facility] URINE AND STOOL UA Blood Negative (02/07/18 10:19 PM) Negative 02/08/2018 [facility] URINE AND STOOL UA Glucose 50 mg/dL Negative mg/dL 02/08/2018 [facility] URINE AND STOOL UA Ketones Negative *NA* (02/07/18 10:19 PM) Negative 02/08/2018 [facility] URINE AND STOOL UA Protein >=300 mg/dL Negative mg/dL 02/08/2018 [facility] URINE AND STOOL UA Bili Negative *NA* (02/07/18 10:19 PM) Negative 02/08/2018 [facility] URINE AND STOOL UA Leuk Est Large *ABN* (02/07/18 10:19 PM) Negative 02/08/2018 [facility] URINE AND STOOL Micro? Performed (02/07/18 10:19 PM) 02/08/2018 [facility] URINE AND STOOL UA Nitrite Negative (02/07/18 10:19 PM) Negative 02/08/2018 [facility] URINE AND STOOL UA Sq Epi Occasional /LPF Few /LPF 02/08/2018 [facility] URINE AND STOOL UA Bacteria Few /HPF None Seen /HPF 02/08/2018 [facility] URINE AND STOOL UA RBC 10 0 - 2 02/08/2018 [facility] URINE AND STOOL UA WBC >182 0 - 5 02/08/2018 [facility] Culture: Urine No Growth 02/08/2018 [facility] CHEM PANEL eGFR 38 02/05/2018 Result [...] should be multiplied by the estimated BMI. [facility] CHEM PANEL BUN 13 7 - 22 02/05/2018 [facility] CHEM PANEL Creatinine Lvl 1.42 0.50 - 1.40 02/05/2018 [facility] CHEM PANEL Glucose Lvl 112 70 - 99 02/05/2018 [facility] CHEM PANEL Calcium Lvl 7.6 8.5 - 10.5 02/05/2018 [facility] CHEM PANEL Sodium Lvl 140 135 - 145 02/05/2018 [facility] CHEM PANEL Potassium Lvl 3.6 3.5 - 5.1 02/05/2018 [facility] CHEM PANEL AGAP 13.6 10.0 - 20.0 02/05/2018 [facility] CHEM PANEL CO2 28 24 - 32 02/05/2018 [facility] CHEM PANEL Chloride Lvl 102 95 - 109 02/05/2018 [facility] HEMATOLOGY WBC 7.6 3.7 - 10.4 02/04/2018 [facility] HEMATOLOGY RBC 2.76 4.20 - 5.40 02/04/2018 [facility] MCHC 33.5 32.0 - 36.0 02/04/2018 [facility] MCH 29.4 27.0 - 31.0 02/04/2018 [facility] Hct 24.2 36.0 - 48.0 02/04/2018 [facility] HEMATOLOGY Hgb 8.1 12.0 - 16.0 02/04/2018 [facility] MCV 87.8 80.0 - 98.0 02/04/2018 [facility] RDW 14.8 11.5 - 14.5 02/04/2018 [facility] Platelet 355 133 - 450 02/04/2018 [facility] MPV 6.9 7.4 - 10.4 02/04/2018 [facility] Lymphocytes # 1.7 1.0 - 5.5 02/04/2018 [facility] Monocytes # 0.5 0.0 - 0.8 02/04/2018 [facility] HEMATOLOGY Basophils 0.6 0.0 - 1.0 02/04/2018 [facility] HEMATOLOGY Neutrophils # 5.2 1.5 - 8.1 02/04/2018 [facility] HEMATOLOGY Lymphocytes 22.7 20.0 - 40.0 02/04/2018 [facility] HEMATOLOGY Monocytes 6.9 2.0 - 12.0 02/04/2018 [facility] HEMATOLOGY Segs 68.6 45.0 - 75.0 02/04/2018 [facility] HEMATOLOGY Eosinophils 1.2 0.0 - 4.0 02/04/2018 [facility] HEMATOLOGY Eosinophils # 0.1 0.0 - 0.5 02/04/2018 [facility] URINE CHEM U Creatinine 114.00 02/01/2018 [facility] URINE CHEM U Sodium 10 02/01/2018 [facility] HEMATOLOGY MPV 7.8 7.4 - 10.4 02/01/2018 [facility] HEMATOLOGY Platelet 303 133 - 450 02/01/2018 [facility] HEMATOLOGY Hgb 8.1 12.0 - 16.0 02/01/2018 [facility] HEMATOLOGY Hct 24.4 36.0 - 48.0 02/01/2018 [facility] HEMATOLOGY WBC 11.4 3.7 - 10.4 02/01/2018 [facility] HEMATOLOGY RBC 2.72 4.20 - 5.40 02/01/2018 [facility] HEMATOLOGY MCV 89.7 80.0 - 98.0 02/01/2018 [facility] HEMATOLOGY MCH 29.8 27.0 - 31.0 02/01/2018 [facility] HEMATOLOGY MCHC 33.3 32.0 - 36.0 02/01/2018 [facility] HEMATOLOGY RDW 15.5 11.5 - 14.5 02/01/2018 [facility] HEMATOLOGY Basophils # 0.1 0.0 - 0.2 02/01/2018 [facility] HEMATOLOGY Eosinophils # 0.2 0.0 - 0.5 02/01/2018 [facility] HEMATOLOGY Neutrophils # 8.2 1.5 - 8.1 02/01/2018 [facility] HEMATOLOGY Lymphocytes # 2.1 1.0 - 5.5 02/01/2018 [facility] HEMATOLOGY Monocytes # 0.8 0.0 - 0.8 02/01/2018 [facility] HEMATOLOGY Basophils 1.2 0.0 - 1.0 02/01/2018 [facility] HEMATOLOGY Eosinophils 1.5 0.0 - 4.0 02/01/2018 [facility] HEMATOLOGY Lymphocytes 18.5 20.0 - 40.0 02/01/2018 [facility] HEMATOLOGY Monocytes 6.7 2.0 - 12.0 02/01/2018 [facility] HEMATOLOGY Segs 72.1 45.0 - 75.0 02/01/2018 [facility] CHEM PANEL Magnesium Lvl 2.5 1.8 - 2.4 01/27/2018 [facility] CHEM PANEL Phosphorus 3.4 2.5 - 4.5 01/27/2018 [facility] CHEM PANEL Magnesium Lvl 1.5 1.8 - 2.4 01/26/2018 [facility] CHEM PANEL Phosphorus 2.1 2.5 - 4.5 01/26/2018 [facility] CHEM PANEL Magnesium Lvl 1.6 1.8 - 2.4 01/25/2018 [facility] LIPIDS Trig 361 <=149 mg/dL 01/25/2018 [facility] HEMATOLOGY Basophils # 0.1 0.0 - 0.2 01/24/2018 [facility] HEMATOLOGY Plt Morph Normal (01/23/18 6:15 AM) 01/23/2018 [facility] HEMATOLOGY RBC Morph Normal (01/23/18 6:15 AM) 01/23/2018 [facility] HEMATOLOGY INR 1.16 0.85 - 1.17 01/22/2018 [facility] HEMATOLOGY PT 14.6 12.0 - 14.7 01/22/2018 [facility] HEMATOLOGY PTT 29.1 22.9 - 35.8 01/22/2018 [facility] CHEM PANEL Lipase Lvl 345 73 - 393 01/22/2018 [facility] CHEM PANEL Alk Phos 79 39 - 136 01/22/2018 [facility] CHEM PANEL ALT 11 0 - 65 01/22/2018 [facility] CHEM PANEL Bili Total 0.6 0.2 - 1.3 01/22/2018 [facility] CHEM PANEL AST 13 0 - 37 01/22/2018 [facility] CHEM PANEL A/G Ratio 0.6 0.7 - 1.6 01/22/2018 [facility] CHEM PANEL B/C Ratio 17 6 - 25 01/22/2018 [facility] CHEM PANEL Albumin Lvl 2.7 3.5 - 5.0 01/22/2018 [facility] CHEM PANEL Total Protein 7.4 6.4 - 8.4 01/22/2018 [facility] CHEM PANEL Globulin 4.7 2.7 - 4.2 01/22/2018 [facility] URINE AND STOOL UA Nitrite Negative (01/21/18 3:14 PM) Negative 01/21/2018 [facility] URINE AND STOOL UA Urobilinogen <=1.0 mg/dL 0.1 - 1.0 01/21/2018 [facility] URINE AND STOOL UA Blood Small *ABN* (01/21/18 3:14 PM) Negative 01/21/2018 [facility] URINE AND STOOL UA Protein 100 mg/dL Negative mg/dL 01/21/2018 [facility] URINE AND STOOL UA Glucose 150 mg/dL Negative mg/dL 01/21/2018 [facility] URINE AND STOOL Micro? Performed (01/21/18 3:14 PM) 01/21/2018 [facility] URINE AND STOOL UA Leuk Est Large *ABN* (01/21/18 3:14 PM) Negative 01/21/2018 [facility] URINE AND STOOL UA Color Maggy 01/21/2018 [facility] URINE AND STOOL UA Bili Negative *NA* (01/21/18 3:14 PM) Negative 01/21/2018 [facility] URINE AND STOOL UA Ketones Trace *ABN* (01/21/18 3:14 PM) Negative 01/21/2018 [facility] URINE AND STOOL UA pH 5.0 5.0 - 8.0 01/21/2018 [facility] URINE AND STOOL UA Spec Grav 1.013 <=1.030 01/21/2018 [facility] URINE AND STOOL UA Turbidity Marked *ABN* (01/21/18 3:14 PM) Clear 01/21/2018 [facility] URINE AND STOOL UA Mucus Few /LPF None Seen /LPF 01/21/2018 [facility] URINE AND STOOL UA [place] Yeast Many /HPF None Seen /HPF 01/21/2018 [facility] URINE AND STOOL UA RBC 52 0 - 2 01/21/2018 [facility] URINE AND STOOL UA WBC >182 0 - 5 01/21/2018 [facility] URINE AND STOOL UA Sq Epi Occasional /LPF Few /LPF 01/21/2018 [facility] URINE CHEM U Creatinine 114.00 01/21/2018 [facility] URINE CHEM U Sodium 41 01/21/2018 [facility] CARDIAC ENZYMES BNP 53 <=100 pg/mL 01/21/2018 [facility] HEMATOLOGY INR 1.24 0.85 - 1.17 01/21/2018 [facility] HEMATOLOGY PT 15.4 12.0 - 14.7 01/21/2018 [facility] HEMATOLOGY PTT 35.1 22.9 - 35.8 01/21/2018 [facility] URINE AND STOOL UA RBC 4 0 - 2 01/21/2018 [facility] URINE AND STOOL UA Sq Epi [...] Slight *ABN* (01/21/18 6:50 AM) Clear 01/21/2018 [facility] URINE AND STOOL UA pH 6.5 5.0 - 8.0 01/21/2018 [facility] URINE AND STOOL UA Leuk Est Negative (01/21/18 6:50 AM) Negative 01/21/2018 [facility] URINE AND STOOL UA Nitrite Negative (01/21/18 6:50 AM) Negative 01/21/2018 [facility] URINE AND STOOL UA Bili Negative *NA* (01/21/18 6:50 AM) Negative 01/21/2018 [facility] URINE AND STOOL UA Blood Negative (01/21/18 6:50 AM) Negative 01/21/2018 [facility] URINE AND STOOL UA Urobilinogen 0.2 0.1 - 1.0 01/21/2018 Result Comment: Urobilinogen performed on the Clinitek analyzer. 01/21/2018 07:27 AGUILAR [facility] URINE AND STOOL UA Color Yellow *NA* (01/21/18 6:50 AM) Yellow 01/21/2018 [facility] CARDIAC ENZYMES Troponin-I <0.02 0.00 - 0.40 01/21/2018 [facility] CHEM PANEL Lipase Lvl 577 73 - 393 01/21/2018 [facility] CHEM PANEL Albumin Lvl 3.2 3.5 - 5.0 01/21/2018 [facility] CHEM PANEL Total Protein 8.7 6.4 - 8.4 01/21/2018 [facility] CHEM PANEL Alk Phos 104 39 - 136 01/21/2018 [facility] CHEM PANEL AST 14 0 - 37 01/21/2018 [facility] CHEM PANEL ALT 15 0 - 65 01/21/2018 [facility] CHEM PANEL Bili Total 0.4 0.2 - 1.3 01/21/2018 [facility] CHEM PANEL A/G Ratio 0.6 0.7 - 1.6 01/21/2018 [facility] CHEM PANEL Globulin 5.5 2.7 - 4.2 01/21/2018 [facility] CHEM PANEL B/C Ratio 14 6 - 25 01/21/2018 [facility] HEMATOLOGY Plt Morph Normal (01/21/18 6:39 AM) 01/21/2018 [facility] HEMATOLOGY RBC Morph Normal (01/21/18 6:39 AM) 01/21/2018 [facility] ELECTROLYTES Sodium Lvl 134 135 - 145 01/10/2018 [facility] ELECTROLYTES Potassium Lvl 4.3 3.5 - 5.1 01/10/2018 [facility] ELECTROLYTES Chloride Lvl 99 95 - 109 01/10/2018 [facility] ELECTROLYTES Creatinine Lvl 1.99 0.50 - 1.40 01/10/2018 [facility] ELECTROLYTES Glucose Lvl 126 70 - 99 01/10/2018 [facility] ELECTROLYTES BUN 51 7 - 22 01/10/2018 [facility] ELECTROLYTES eGFR 25 01/10/2018 Result Comment: [...] should be multiplied by the estimated BMI. [facility] ELECTROLYTES CO2 25 24 - 32 01/10/2018 [facility] ELECTROLYTES AGAP 14.3 10.0 - 20.0 01/10/2018 [facility] ELECTROLYTES Calcium Lvl 9.0 8.5 - 10.5 01/10/2018 [facility] MPV 6.8 7.4 - 10.4 01/10/2018 [facility] Hgb 8.7 12.0 - 16.0 01/10/2018 [facility] Hct 26.8 36.0 - 48.0 01/10/2018 [facility] WBC 8.4 3.7 - 10.4 01/10/2018 [facility] Platelet 345 133 - 450 01/10/2018 [facility] RDW 17.9 11.5 - 14.5 01/10/2018 [facility] MCHC 32.5 32.0 - 36.0 01/10/2018 [facility] MCV 89.7 80.0 - 98.0 01/10/2018 [facility] MCH 29.1 27.0 - 31.0 01/10/2018 [facility] RBC 2.99 4.20 - 5.40 01/10/2018 [facility] CHEM PANEL eGFR 38 01/09/2018 Result [...] should be multiplied by the estimated BMI. [facility] CHEM PANEL Chloride Lvl 100 95 - 109 01/09/2018 [facility] CHEM PANEL Potassium Lvl 4.1 3.5 - 5.1 01/09/2018 [facility] CHEM PANEL AGAP 14.1 10.0 - 20.0 01/09/2018 [facility] CHEM PANEL CO2 26 24 - 32 01/09/2018 [facility] CHEM PANEL Calcium Lvl 8.4 8.5 - 10.5 01/09/2018 [facility] CHEM PANEL Glucose Lvl 191 70 - 99 01/09/2018 [facility] CHEM PANEL Sodium Lvl 136 135 - 145 01/09/2018 [facility] CHEM PANEL Creatinine Lvl 1.41 0.50 - 1.40 01/09/2018 [facility] CHEM PANEL BUN 47 7 - 22 01/09/2018 [facility] CHEM PANEL eGFR 39 01/08/2018 Result [...] should be multiplied by the estimated BMI. [facility] CHEM PANEL Calcium Lvl 8.1 8.5 - 10.5 01/08/2018 [facility] CHEM PANEL CO2 28 24 - 32 01/08/2018 [facility] CHEM PANEL Chloride Lvl 96 95 - 109 01/08/2018 [facility] CHEM PANEL Sodium Lvl 134 135 - 145 01/08/2018 [facility] CHEM PANEL Potassium Lvl 3.6 3.5 - 5.1 01/08/2018 [facility] CHEM PANEL BUN 57 7 - 22 01/08/2018 [facility] CHEM PANEL Creatinine Lvl 1.38 0.50 - 1.40 01/08/2018 [facility] CHEM PANEL Glucose Lvl 159 70 - 99 01/08/2018 [facility] CHEM PANEL AGAP 13.6 10.0 - 20.0 01/08/2018 [facility] CHEM PANEL Magnesium Lvl 1.9 1.8 - 2.4 01/08/2018 [facility] CHEM PANEL Phosphorus 4.0 2.5 - 4.5 01/08/2018 [facility] HEMATOLOGY Monocytes # 0.5 0.0 - 0.8 01/08/2018 [facility] HEMATOLOGY Neutrophils # 4.4 1.5 - 8.1 01/08/2018 [facility] HEMATOLOGY Eosinophils # 0.2 0.0 - 0.5 01/08/2018 [facility] HEMATOLOGY Lymphocytes # 2.3 1.0 - 5.5 01/08/2018 [facility] HEMATOLOGY Segs 58.4 45.0 - 75.0 01/08/2018 [facility] HEMATOLOGY Monocytes 6.9 2.0 - 12.0 01/08/2018 [facility] HEMATOLOGY Basophils 0.6 0.0 - 1.0 01/08/2018 [facility] HEMATOLOGY Lymphocytes 30.9 20.0 - 40.0 01/08/2018 [facility] HEMATOLOGY Eosinophils 3.2 0.0 - 4.0 01/08/2018 [facility] HEMATOLOGY Hgb 8.0 12.0 - 16.0 01/08/2018 [facility] HEMATOLOGY RBC 2.70 4.20 - 5.40 01/08/2018 [facility] HEMATOLOGY MCV 89.0 80.0 - 98.0 01/08/2018 [facility] HEMATOLOGY Hct 24.0 36.0 - 48.0 01/08/2018 [facility] HEMATOLOGY WBC 7.6 3.7 - 10.4 01/08/2018 [facility] MCH 29.6 27.0 - 31.0 01/08/2018 [facility] HEMATOLOGY RDW 18.0 11.5 - 14.5 01/08/2018 [facility] HEMATOLOGY MPV 7.4 7.4 - 10.4 01/08/2018 [facility] MCHC 33.2 32.0 - 36.0 01/08/2018 [facility] HEMATOLOGY Platelet 301 133 - 450 01/08/2018 [facility] CHEM PANEL Magnesium Lvl 2.2 1.8 - 2.4 01/07/2018 [facility] CHEM PANEL Phosphorus 5.6 2.5 - 4.5 01/07/2018 [facility] HEMATOLOGY Lymphocytes 26.3 20.0 - 40.0 01/07/2018 [facility] HEMATOLOGY Segs 62.3 45.0 - 75.0 01/07/2018 [facility] HEMATOLOGY Eosinophils 2.3 0.0 - 4.0 01/07/2018 [facility] HEMATOLOGY Monocytes 8.3 2.0 - 12.0 01/07/2018 [facility] HEMATOLOGY Basophils # 0.1 0.0 - 0.2 01/07/2018 [facility] HEMATOLOGY Neutrophils # 6.0 1.5 - 8.1 01/07/2018 [facility] HEMATOLOGY Eosinophils # 0.2 0.0 - 0.5 01/07/2018 [facility] HEMATOLOGY Lymphocytes # 2.5 1.0 - 5.5 01/07/2018 [facility] HEMATOLOGY Basophils 0.8 0.0 - 1.0 01/07/2018 [facility] HEMATOLOGY Monocytes # 0.8 0.0 - 0.8 01/07/2018 [facility] HEMATOLOGY RBC 2.77 4.20 - 5.40 01/07/2018 [facility] MCH 30.0 27.0 - 31.0 01/07/2018 [facility] HEMATOLOGY RDW 17.9 11.5 - 14.5 01/07/2018 [facility] HEMATOLOGY Platelet 285 133 - 450 01/07/2018 [facility] MCHC 33.8 32.0 - 36.0 01/07/2018 [facility] HEMATOLOGY MCV 88.8 80.0 - 98.0 01/07/2018 [facility] Hct 24.6 36.0 - 48.0 01/07/2018 [facility] Hgb 8.3 12.0 - 16.0 01/07/2018 [facility] MPV 6.7 7.4 - 10.4 01/07/2018 [facility] WBC 9.6 3.7 - 10.4 01/07/2018 [facility] CHEM PANEL Phosphorus 3.9 2.5 - 4.5 01/06/2018 [facility] CHEM PANEL Magnesium Lvl 2.0 1.8 - 2.4 01/06/2018 [facility] LIPIDS Trig 408 <=149 mg/dL 01/06/2018 [facility] Culture: Urine Specimen contains 3 or more potential pathogens; recommend correlation with urinalysis; if catheterized specimen recommend removal and recollection. If clinical situation warrants please call the laboratory for further testing. [place] [facility] [phone]. 01/03/2018 [facility] URINE AND STOOL UA Glucose Negative *NA* (01/02/18 6:44 AM) Negative 01/02/2018 [facility] URINE AND STOOL UA pH 5.0 5.0 - 8.0 01/02/2018 [facility] URINE AND STOOL UA Spec Grav 1.014 <=1.030 01/02/2018 [facility] URINE AND STOOL UA Color Yellow *NA* (01/02/18 6:44 AM) Yellow 01/02/2018 [facility] URINE AND STOOL UA Turbidity Marked *ABN* (01/02/18 6:44 AM) Clear 01/02/2018 [facility] URINE AND STOOL UA Protein >=300 mg/dL Negative mg/dL 01/02/2018 [facility] URINE AND STOOL UA Ketones Negative *NA* (01/02/18 6:44 AM) Negative 01/02/2018 [facility] URINE AND STOOL UA Bili Negative *NA* (01/02/18 6:44 AM) Negative 01/02/2018 [facility] URINE AND STOOL UA Bacteria Occasional /HPF None Seen /HPF 01/02/2018 [facility] URINE AND STOOL UA Mucus Few /LPF None Seen /LPF 01/02/2018 [facility] URINE AND STOOL UA WBC >182 0 - 5 01/02/2018 [facility] URINE AND STOOL UA RBC 2 0 - 2 01/02/2018 [facility] URINE AND STOOL UA Urobilinogen <=1.0 mg/dL 0.1 - 1.0 01/02/2018 [facility] URINE AND STOOL UA Nitrite Negative (01/02/18 6:44 AM) Negative 01/02/2018 [facility] URINE AND STOOL UA Blood Small *ABN* (01/02/18 6:44 AM) Negative 01/02/2018 [facility] URINE AND STOOL UA Trans Epi 11 <=0 /LPF 01/02/2018 [facility] URINE AND STOOL UA Leuk Est Large *ABN* (01/02/18 6:44 AM) Negative 01/02/2018 [facility] URINE AND STOOL UA Sq Epi Occasional /LPF Few /LPF 01/02/2018 [facility] URINE CHEM U Sodium 16 01/02/2018 [facility] URINE CHEM U Creatinine 156.00 01/02/2018 [facility] CHEM PANEL Albumin Lvl 2.4 3.5 - 5.0 01/02/2018 [facility] CHEM PANEL Total Protein 6.8 6.4 - 8.4 01/02/2018 [facility] CHEM PANEL B/C Ratio 12 6 - 25 01/02/2018 [facility] CHEM PANEL ALT 12 0 - 65 01/02/2018 [facility] CHEM PANEL A/G Ratio 0.5 0.7 - 1.6 01/02/2018 [facility] CHEM PANEL Globulin 4.4 2.7 - 4.2 01/02/2018 [facility] CHEM PANEL Alk Phos 99 39 - 136 01/02/2018 [facility] CHEM PANEL AST 11 0 - 37 01/02/2018 [facility] CHEM PANEL Bili Total 0.3 0.2 - 1.3 01/02/2018 [facility] HEMATOLOGY Basophils 0.8 0.0 - 1.0 01/02/2018 [facility] HEMATOLOGY Eosinophils 1.2 0.0 - 4.0 01/02/2018 [facility] HEMATOLOGY Lymphocytes # 2.2 1.0 - 5.5 01/02/2018 [facility] HEMATOLOGY Neutrophils # 6.9 1.5 - 8.1 01/02/2018 [facility] HEMATOLOGY Monocytes # 0.6 0.0 - 0.8 01/02/2018 [facility] HEMATOLOGY Basophils # 0.1 0.0 - 0.2 01/02/2018 [facility] HEMATOLOGY Eosinophils # 0.1 0.0 - 0.5 01/02/2018 [facility] HEMATOLOGY Lymphocytes 22.4 20.0 - 40.0 01/02/2018 [facility] Monocytes 6.2 2.0 - 12.0 01/02/2018 [facility] HEMATOLOGY Segs 69.4 45.0 - 75.0 01/02/2018 [facility] IMMUNOLOGY Prealbumin 13.9 18.0 - 45.0 01/02/2018 [facility] LIPIDS Trig 446 <=149 mg/dL 01/02/2018 [facility] CHEM PANEL Albumin Lvl 2.7 3.5 - 5.0 01/01/2018 [facility] CHEM PANEL Total Protein 7.9 6.4 - 8.4 01/01/2018 [facility] CHEM PANEL Alk Phos 118 39 - 136 01/01/2018 [facility] CHEM PANEL Bili Total 0.2 0.2 - 1.3 01/01/2018 [facility] CHEM PANEL AST 17 0 - 37 01/01/2018 [facility] CHEM PANEL ALT 16 0 - 65 01/01/2018 [facility] CHEM PANEL B/C Ratio 12 6 - 25 01/01/2018 [facility] CHEM PANEL A/G Ratio 0.5 0.7 - 1.6 01/01/2018 [facility] CHEM PANEL Globulin 5.2 2.7 - 4.2 01/01/2018 [facility] IMMUNOLOGY Prealbumin 15.3 18.0 - 45.0 01/01/2018 [facility] Pathology Reports No Data Provided for [...] Bilateral renal cortical atrophy. SL: BRANDI 02/25/2018 [facility] Abdomen/Pelvis wo IV contrast CT PROCEDURE: [...] renal cyst. END REPORT MADHAVI: [id number] 02/25/2018 [facility] Forearm 2 views DX Patient Name: JOSÉ MIGUEL MÉNDEZ : 1950; Age: 67 years y/o Female MR: [id number] * RIGHT FOREARM, 2 views History: Right forearm pain. Technique: Frontal and lateral radiographs of the right forearm were obtained. FINDINGS: There is no evidence of fracture, dislocation, or acute change. There are no destructive lesions or other osseous abnormalities. IMPRESSION: 1. Negative right forearm. SL: [id number] 02/08/2018 [facility] Ext Upper Venous Doppler Unilat US [...] the time of dictation. SL: ALBERTA 02/08/2018 [facility] Chest 1view DX Clinical Indication: - fever, tachycardia, chills. Comparison: 01/21/2018 Findings: Frontal view of the chest was obtained. Left internal jugular CVC tip projects over the superior cavoatrial junction. The cardiac silhouette is normal. Atheromatous changes are present in the aorta. There is no lobar consolidation, effusion or edema. No pneumothorax. No acute osseous abnormality. IMPRESSION: No acute cardiopulmonary abnormality. SL: [id number] 02/07/2018 [facility] CVC insert non-tunnel age 5+ yrs VR Patient Name: JOSÉ MIGUEL MÉNDEZ : 1950 Age: 67 years Female MR: [id number] Study: CVC insert non-tunnel age 5+ yrs VR 01/22/2018 11:22 TAPE COATER Indication: Need for central venous access. Comparison: [...] catheter utilizing ultrasound and fluoroscopic guidance. SL: [id number] 01/22/2018 [facility] Retroperitoneal Complete US Patient Name: JOSÉ MIGUEL MÉNDEZ : 1950; Age: 67 years Female MR: [id number] Study: Retroperitoneal Complete US 01/21/2018 9:48 TAPE COATER Clinical Indication: Renal insufficiency - magi/ckd. . [...] noted. IMPRESSION: 1. No acute abnormality. SL: [id number] 01/21/2018 [facility] Chest/Abdomen/Pelvis wo IV contrast CT Patient Name: JOSÉ MIGUEL MÉNDEZ : 1950 Age: 67 years, Female MR: [id number] Study: Chest/Abdomen/Pelvis wo IV contrast CT 01/21/2018 7:58 TAPE COATER Examination: CT chest, abdomen, and pelvis without [...] T8, T12, and L5 vertebral bodies. SL: [id number] 01/21/2018 [facility] Chest 1view DX CHEST RADIOGRAPH SINGLE VIEW INDICATION: Shortness of breath, vomiting COMPARISON: Chest radiograph 08/24/2015 IMPRESSION: No consolidation or other acute intrathoracic abnormalities are visualized. SL:16 01/21/2018 [facility] CVC Replacement VR Patient Name: JOSÉ MIGUEL MÉNDEZ : 1950 Age: 67 years Female MR: [id number] Study: CVC Replacement VR 01/03/2018 3:03 PM TAPE COATER Indication: Malfunctioning catheter. Comparison: None. Preoperative diagnosis: [...] a supine position on the fluoroscopy table. Fund Development Manager film was obtained which demonstrated a left [...] catheter utilizing ultrasound and fluoroscopic guidance. SL: [id number] 01/03/2018 [facility] Retroperitoneal Complete US PROCEDURE: RENAL ULTRASOUND [...] renal cysts. Otherwise normal exam. [id number] 01/01/2018 [facility] Abdomen/Pelvis wo IV contrast CT PROCEDURE: [...] additional information. END REPORT SL: VITOR 01/01/2018 [facility] Chest 2 views DX EXAMINATION: Chest, [...] Anemia, unspecified Comparison Exam: None Discussion: On veterinary virus serum inspector view, there are no dilated loops of [...] Source Temperature Oral (F) 98.1 F 03/05/2018 [facility] Heart Rate 95 03/05/2018 [facility] Systolic (mm Hg) 107 03/05/2018 [facility] Diastolic (mm Hg) 57 03/05/2018 [facility] Temperature Oral (F) 98.0 F 03/05/2018 [facility] Systolic (mm Hg) 129 03/05/2018 [facility] Diastolic (mm Hg) 82 03/05/2018 [facility] Heart Rate 102 03/05/2018 [facility] Systolic (mm Hg) 122 03/05/2018 [facility] Diastolic (mm Hg) 78 03/05/2018 [facility] Respitory Rate 16 03/05/2018 [facility] Heart Rate 97 03/05/2018 [facility] Temperature Oral (F) 98.0 F 03/05/2018 [facility] Respitory Rate 16 03/05/2018 [facility] Respitory Rate 16 03/05/2018 [facility] Height 121.92 cm 02/26/2018 [facility] Weight 53.4 02/26/2018 [facility] BMI Calculated 35.92 02/26/2018 [facility] Weight 62.727 02/25/2018 [facility] BMI Calculated 25.29 02/25/2018 [facility] Height 157.48 cm 02/25/2018 [facility] Systolic (mm Hg) 145 02/13/2018 [facility] Diastolic (mm Hg) 67 02/13/2018 [facility] Temperature Oral (F) 98.5 F 02/13/2018 [facility] Heart Rate 111 02/13/2018 [facility] Temperature Oral (F) 98.7 F 02/13/2018 [facility] Heart Rate 106 02/13/2018 [facility] Systolic (mm Hg) 151 02/13/2018 [facility] Diastolic (mm Hg) 67 02/13/2018 [facility] Heart Rate 104 02/13/2018 [facility] Temperature Oral (F) 97.8 F 02/13/2018 [facility] Respitory Rate 20 02/13/2018 [facility] Systolic (mm Hg) 136 02/13/2018 [facility] Diastolic (mm Hg) 77 02/13/2018 [facility] Respitory Rate 18 02/13/2018 [facility] Respitory Rate 16 02/13/2018 [facility] Weight 59.091 01/21/2018 [facility] Weight 59.091 01/21/2018 [facility] BMI Calculated 27.23 01/21/2018 [facility] Height 147.32 cm 01/21/2018 [facility] Heart Rate 91 01/13/2018 [facility] Temperature Oral (F) 98.2 F 01/13/2018 [facility] Systolic (mm Hg) 114 01/13/2018 [facility] Diastolic (mm Hg) 73 01/13/2018 [facility] Systolic (mm Hg) 131 01/13/2018 [facility] Diastolic (mm Hg) 78 01/13/2018 [facility] Heart Rate 91 01/13/2018 [facility] Temperature Oral (F) 97.8 F 01/13/2018 [facility] Systolic (mm Hg) 124 01/13/2018 [facility] Diastolic (mm Hg) 78 01/13/2018 [facility] Respitory Rate 18 01/13/2018 [facility] Heart Rate 87 01/13/2018 [facility] Temperature Oral (F) 97.9 F 01/13/2018 [facility] Respitory Rate 18 01/13/2018 [facility] Respitory Rate 20 01/13/2018 [facility] Height 147.32 cm 01/01/2018 [facility] BMI Calculated 28.06 01/01/2018 [facility] Weight 60.909 01/01/2018 [facility] BMI Calculated 28.06 01/01/2018 [facility] Weight 60.909 01/01/2018 [facility] Height 147.32 cm 01/01/2018 [facility] Height 147.32 cm 01/01/2018 [facility] BMI Calculated 28.06 01/01/2018 [facility] Weight 60.909 01/01/2018 [facility] Encounters Location Location Details Encounter Type Encounter Number Reason For Visit Attending Provider ADM Date DC Date Status Source [facility] [place] [facility] [id number] Jarrell Gaytan 04/13/2015 04/14/2015 [facility] [place] [facility] [place] [facility] [id number] Thomas Perry 08/24/2015 08/25/2015 [facility] [place] [facility] [id number] [facility] 01/01/2018 01/13/2018 [facility] [id number] [facility] 01/21/2018 02/14/2018 [facility] [id number] [facility] 02/25/2018 03/06/2018 [facility] Procedures Procedure Code Date Perfomer Comments Source Colectomy 14054346 [facility] Hemorrhoidectomy [id number] [facility] Knee joint operation [id number] [facility] Ostomy care management [id number] [facility] Wrist repair [id number] [facility] Assessment and Plan Assessment and Plan Date Source Extracted from:Title: Clinical Document Author: Celeste Samuels MD Date: 03/05/18 Progress Daily [facility] Completed: Feb, 17:44 by Celeste Samuels MD [...] and off leakage from the fistula manager willow. Apparently she is accepted to a skilled [...] connected to the suction tube draining profusely BLUNGER LOADER AAox3 NO FND Skin no wounds seen [...] an outpatient to and discussed with the case manager specialist patient needs a fistula manager willow and suction at the skilled facility to [...] Meals 02/25/18 enoxaparin (Lovenox) 30 mg SUB-Q [id number] 03/02/18 metoprolol (metoprolol extended release) 25 mg [...] (SEROquel) 25 mg PO BID 02/25/18 acetaminophen-hydrocodone ([place] 5/325 oral tablet) 1 tab PO Q6H 02/25/18 acetaminophen 650 mg PO Q6H 02/25/18 bisacodyl 10 mg MD Daily 02/25/18 diphenhydrAMINE 25 mg PO Q6H [...] underwent a colectomy with ileostomy placement at [facility] in September as per her she had [...] we do not have any wound manager willow in the wound clinic and she was supposed to get a wound manager willow from the [place] and follow-up in the wound clinic REVIEW [...] midline. Fistula area secondary to stool irritation BLUNGER LOADER AAox3 NO FND Skin no wounds seen [...] be discharged to nursing home facility placement. 03/06/2018 [facility] Extracted from:Title: Discharge Summary * Author: Joshua Healy MD Date: 02/13/18 Discharge Information depo: home condition: stable reg diet Extracted from:Title: Clinical Document Author: John Oreilly MD Date: 02/13/18 Progress Note - Daily [facility] Completed: Feb, 16:13 by John Oreilly MD [...] Tot 441 275 166 02/12 24hr Tot [id number] 146 Medications (32) Active Scheduled Meds (12): [...] LORazepam 0.5 mg PO BID 01/21/18 acetaminophen-hydrocodone ([place] 5/325 oral tablet) 1 tab PO Q6H [...] I have examined the patient with the PA/SENIOR SYSTEMS SOFTWARE ENGINEER and confirmed the integral components of the history, physical examination, diagnosis and treatment plan. I agree with the note and management decisions as documented by the SENIOR SYSTEMS SOFTWARE ENGINEER/PA, and amended as needed in the text [...] moderate to severe pain. Will continue PO [place] 10/325mg every 6 hours as needed for mild to moderate pain. Discussed proper medication usage with the patient today. We left a prescription on her chart for [place] 10/325mg, #20, CTRL [id number] for upon discharge. We will continue to [...] BID 01/04/18 enoxaparin (Lovenox) 30 mg SUB-Q [id number] 01/04/18 octreotide 50 microgram SUB-Q TID 01/04/18 pantoprazole 40 mg IVP Q12H 01/04/18 sertraline 100 mg PO Daily PRN Meds (16): 01/02/18 Dextrose 50% in Water IV (Dextrose 50% Syringe) 12.5 gm IVP PRN 01/02/18 Dextrose 50% in Water IV (Dextrose 50% Syringe) 25 gm IVP PRN 01/04/18 LORazepam (Ativan) 0.5 mg PO TID 01/01/18 acetaminophen-hydrocodone ([place] 10/325 oral tablet) 1 tab PO Q6H [...] 07:00 Surgical Drains: Other: midline fistula manager willow [facility] 01/01/2018 07:50 GI Ostomy: Ileostomy Established [...] underwent a colectomy with ileostomy placement at [facility] in September as per her she had [...] the wound care nurse and wound manager willow was placed today and she has almost [...] Ibuprofen. Motrin. Physical examination: Vital signs T98.4 MD 86 BP 03/10/1967 RR 16 HEENT ROSANGELA Neck supple RS Equal AE b/l no added sounds CVS S1S2 normal no murmur P/A soft patient has a wound manager willow in the midline having profuse feculent drainage She has a ileostomy could not see the wound as patient has a wound manager willow BLUNGER LOADER AAox3 NO FND Skin intact Ext [...] when we reevaluate without a wound manager willow and as per the patient and wound [...]
[2018-11-05] MEDS ORDERED: ASPIRIN 81 MG CHEW TAB PO ONE (07:30)
[2018-11-05] MEDS ORDERED: PANTOPRAZOLE 40 MG 10ML VIAL IV ONE (07:34)
[2018-11-05] MEDS ORDERED: SODIUM CHLORIDE 0.9% 1000ML 1,000 ML IV STA (07:34)
[2018-11-05] MEDS ORDERED: MORPHINE SULFATE 2 MG/ML SYR 1ML IV ONE ×2 (07:34→10:37)
[2018-11-05] MEDS ORDERED: ONDANSETRON HCL INJ 2MG/ML 2ML 2 MG/ML VIAL IV ONE (07:34)
[2018-11-05 09:28] LABS: BASOPHILS # (AUTO) 0.1 (0.0-0.1); BASOPHILS % 0.9 % (0.0-1.0); EOSINOPHILS # (AUTO) 1.2 (0.0-0.4); EOSINOPHILS % 8.7 % (0.0-6.0); HEMATOCRIT 31.2 % (34.2-44.1); HEMOGLOBIN 10.5 g/dL (12.0-16.0); LYMPHOCYTES # (AUTO) 1.6 (1.0-3.2); LYMPHOCYTES % 11.2 % (18.0-39.1); MEAN CORPUSCULAR HEMOGLOBIN 32.2 pg (28-32); MEAN CORPUSCULAR HGB CONC 33.7 g/dL (31-35); MEAN CORPUSCULAR VOLUME 95.7 fL (81-99); MONOCYTES # (AUTO) 0.7 (0.2-0.8); NEUTROPHILS # (AUTO) 10.2 (2.1-6.9); NEUTROPHILS % 72.4 % (38.7-80.0); PLATELET COUNT 277 x10e3/uL (140-360); RED BLOOD COUNT 3.26 x10e6/uL (3.6-5.1); RED CELL DISTRIBUTION WIDTH 13.7 % (11.7-14.4)
[2018-11-05 09:39] LABS: INR 1.15; PARTIAL THROMBOPLASTIN TIME 32.1 seconds (23.8-35.5); PROTHROMBIN TIME 15.3 seconds (11.9-14.5)
[2018-11-05 09:45] LABS: AMYLASE 104 U/L (25-125); LIPASE 39 U/L (8-78)
[2018-11-05 10:02] LABS: BILIRUBIN,URINE SMALL (NEGATIVE); CLARITY,URINE SL CLOUDY (CLEAR); COLOR,URINE YELLOW (YELLOW); KETONES,URINE TRACE (NEGATIVE); LEUKOCYTE ESTERASE ,URINE SMALL (NEGATIVE); NITRITE,URINE NEGATIVE (NEGATIVE); PROTEIN,URINE DIPSTICK 2+ (NEGATIVE); URINE UROBILINOGEN 0.2 mg/dL (0.2 - 1)
[2018-11-05 10:18] LABS: WBC,URINE (MAN) 0-5 /HPF (0-5)
[2018-11-05 10:19] LABS: BACTERIA,URINE RARE /HPF; EPITHELIAL CELLS,URINE FEW /LPF; RBC,URINE 0-5 /HPF (0-5)
[2018-11-05 10:41] LABS: ALANINE AMINOTRANSFERASE 18 IU/L (0-55); ALBUMIN 3.3 g/dL (3.5-5.0); ALBUMIN/GLOBULIN RATIO 0.7 (0.8-2.0); ALKALINE PHOSPHATASE 87 IU/L (40-150); ANION GAP 26.9 mmol/L (8-16); BLOOD UREA NITROGEN 101 mg/dL (7-26); BUN/CREATININE RATIO 12 (6-25); CARBON DIOXIDE 21 mmol/L (22-29); CHLORIDE 90 mmol/L (98-107); CREATINE KINASE 70 IU/L (29-168); CREATININE, SERUM 8.31 mg/dL (0.57-1.11); EST GLOMERULAR FILTRATION RATE 5 ML/MIN (60-); GLUCOSE 149 mg/dL (74-118); SODIUM 132 mmol/L (136-145)
[2018-11-05 10:44] LABS: POTASSIUM 5.9 mmol/L (3.5-5.1)
[2018-11-05 10:45] LABS: CALCIUM 6.8 mg/dL (8.4-10.2); MAGNESIUM < 0.6 MG/DL (1.3-2.1)
[2018-11-05] MEDS ORDERED: SODIUM BICARBONATE 8.4% 50 ML VIAL IV STA ×2 (11:08→11:33)
[2018-11-05] MEDS ORDERED: DEXTROSE 50% SYRINGE 50 ML IV STA (11:08)
[2018-11-05] MEDS ORDERED: INSULIN REGULAR, HUMAN 100 UNIT/1 ML 3ML VIAL IV ONE ×2 (11:15→11:45)
[2018-11-05] MEDS ORDERED: CALCIUM GLUCONATE 10% INJ 4.65 MEQ in SODIUM CHLORIDE 0.9% 50ML 50 ML IV ONE ×2 (11:15→11:45)
--- NOTE | 2018-11-05 11:27 | NUR ---
fish bait processing supervisor called for STAT dialysis
[2018-11-05] MEDS ORDERED: MAGNESIUM SULFATE 2GM/50ML 100 ML IV ONE ×2 (11:30→11:45)
[2018-11-05] MEDS ORDERED: DEXTROSE 50% SYRINGE 50 ML IV ONE (11:33)
--- NOTE | 2018-11-05 11:56 | Diagnostic Imaging Report ---
EXAMINATION: CHEST SINGLE (PORTABLE) INDICATION: Chest pain COMPARISON: Chest radiograph 10/20/2018 FINDINGS: LINES/TUBES:Left chest port with tip terminating in the superior vena cava. EKG leads overlie the chest. LUNGS:The lungs are well-inflated. Mild central bronchial wall thickening. PLEURA:No pleural effusion or pneumothorax. MEDIASTINUM:The cardiomediastinal silhouette appears normal in size and shape. Atherosclerotic calcifications of the thoracic aorta. BONES/SOFT TISSUES:No acute osseous injury. ABDOMEN:No free air under the diaphragm. IMPRESSION: No focal pneumonia or pulmonary edema. Mild central bronchial wall thickening can be seen with bronchitis. Signed by: Melanie Fischer MD on 11/05/2018 11:43 AM
[2018-11-05] MEDS ORDERED: SODIUM BICARBONATE 8.4% INJ 50 ML SYR IV ONE ×2 (12:15)
[2018-11-05] MEDS ORDERED: DEXTROSE 50% SYRINGE 50 ML IV PRN (12:15)
[2018-11-05] MEDS ORDERED: ONDANSETRON HCL INJ 2MG/ML 2ML 2 MG/ML VIAL IV PRN (12:15)
[2018-11-05] MEDS ORDERED: FAMOTIDINE 20 MG/2 ML VIAL IV SCH (12:15)
--- OUTSIDE RECORDS SUMMARY | 2018-11-05 12:19 | XMS REPORT | Clinical Summary ---
Author Author [facility] Address Unknown Phone Unavailable Care Team Providers Care Landscape Management Technician Name Role Phone Cody Cheng PCP Jarrell Gaytan MD Unavailable Unavailable Arnulfo Pina MD 3 Allergies Not on File Medications End Date Status Medication Sig Dispensed Refills Start Date Active metoprolol (TOPROL-XL) Take 100 mg 0 100 MG 24 hr by mouth tabletIndications: ESRD daily. (end stage renal disease) ([facility]) Active pantoprazole (PROTONIX) Take 20 mg by 0 20 MG tabletIndications: mouth daily. ESRD (end stage renal disease) ([facility]) Active folic acid (FOLVITE) 1 MG Take 1 mg by 0 tabletIndications: ESRD mouth daily. (end stage renal disease) ([facility]) Active ondansetron (ZOFRAN) 8 MG Take by mouth 0 tabletIndications: ESRD every 8 (end stage renal disease) (eight) hours ([facility]) as needed for Nausea. Active sodium bicarbonate 650 MG Take 1 tablet 0 tabletIndications: ESRD by mouth 4 (end stage renal disease) (four) times ([facility]) daily. Active sertraline (ZOLOFT) 100 Take 100 mg 0 MG tabletIndications: by mouth ESRD (end stage renal daily. disease) ([facility]) Active ranitidine (ZANTAC) 150 Take 150 mg 0 MG capsuleIndications: by mouth 2 ESRD (end stage renal (two) times disease) ([facility]) daily. Active sevelamer (RENVELA) 800 Take 800 mg 0 mg tabletIndications: by mouth 3 ESRD (end stage renal (three) times disease) ([facility]) daily with meals. Active metoclopramide HCl Take 10 mg by 0 (REGLAN) 10 MG mouth 4 tabletIndications: ESRD (four) times (end stage renal disease) daily as ([facility]) needed for Nausea. Active amLODIPine (NORVASC) 10 Take 10 mg by 0 MG tabletIndications: mouth daily. ESRD (end stage renal disease) ([facility]) Active SUMAtriptan (IMITREX) 100 Take 100 mg 0 MG tabletIndications: by mouth once ESRD (end stage renal as needed for disease) ([facility]) Headaches. Active zolpidem (AMBIEN) 10 mg Take 10 mg by 0 tabletIndications: ESRD mouth every (end stage renal disease) night as ([facility]) needed for Insomnia. Active promethazine (PHENERGAN) Take 25 mg by 0 25 MG tabletIndications: mouth every 6 ESRD (end stage renal (six) hours disease) ([facility]) as needed for Nausea. Active insulin aspart (NOVOLOG) Inject 12 0 100 unit/mL Units InPnIndications: ESRD subcutaneousl (end stage renal disease) y 3 (three) ([facility]) times daily with meals. Active insulin detemir (LEVEMIR) Inject 30 0 100 unit/mL (3 mL) InPn Units injectionIndications: subcutaneousl ESRD (end stage renal y nightly. disease) ([facility]) Active vit B cmplex Take 1 tablet 0 8-KW-N-biot-Zn ox by mouth 1-60-300-12.5 daily. dl-[id number]-mg TabIndications: ESRD (end stage renal disease) ([facility]) Active cholecalciferol, vitamin Take 1,000 0 D3, 1,000 unit Units by capsuleIndications: ESRD mouth daily. (end stage renal disease) ([facility]) Active LORazepam (ATIVAN) 0.5 MG Take 0.5 mg 0 tabletIndications: ESRD by mouth (end stage renal disease) every 6 (six) ([facility]) hours as needed for Anxiety. [...]
--- OUTSIDE RECORDS SUMMARY | 2018-11-05 12:19 | XMS REPORT | Clinical Summary ---
Author Author [facility] Address Unknown Phone Unavailable Care Team Providers Care Direct Support Worker Name Role Phone Cody Cheng MD PCP [...] Advance Directives For more information, please contact: [phone] Patient Patient Care Representative Explanation Type Date Recorded Advance Directives, Living Will and Medical Power of Business Segment Manager
--- OUTSIDE RECORDS SUMMARY | 2018-11-05 12:20 | XMS REPORT | Continuity of Care Document ---
Author Author [facility] Organization [facility] Address Unknown Phone Unavailable Care Team Providers Care Tile Erector Name Role Phone [facility] Unavailable Unavailable Problems Problem Status Onset Date Classification Date Reported Comments Source Persistent postprocedural fistula, initial encounter 03/22/2018 09/22/2018 [facility] ABD PAIN Active 02/25/2018 [facility] ABDOMINAL PAIN, ACUTE, ACUTE LOWER UTI, Active 02/25/2018 [facility] Other complications of enterostomy 01/21/2018 08/02/2018 [facility] N/V Active 01/21/2018 [facility] MAGI Active 01/21/2018 [facility] ABDOMINAL FISTULA LEAKING Active 12/31/2017 [facility] R10.10 - "UPPER ABDOMINAL PAIN, UNSPECIF Active [facility] [place] Unspecified abdominal pain 08/02/2018 [facility] Hypo-osmolality and hyponatremia 09/02/2018 [facility] Acidosis 09/22/2018 [facility] Fistula of intestine 09/22/2018 [facility] Acute kidney failure, unspecified 09/22/2018 [facility] Disruption of external operation wound, not elsewhere classified, initial encounter 08/02/2018 [facility] Chronic kidney disease, stage 4 08/02/2018 [facility] Iron deficiency anemia secondary to blood loss 08/02/2018 [facility] Type 2 diabetes mellitus with diabetic chronic kidney disease 09/22/2018 [facility] Hyperlipidemia, unspecified 09/22/2018 [facility] Other disorders of phosphorus metabolism 08/02/2018 [facility] Volume depletion, unspecified 08/02/2018 [facility] Hyperkalemia 09/02/2018 [facility] Unspecified osteoarthritis, unspecified site 09/22/2018 [facility] Cyst of kidney, acquired 09/22/2018 [facility] Acquired absence of other specified parts of digestive tract 09/22/2018 [facility] Retention of urine, unspecified 08/02/2018 [facility] Hypertensive chronic kidney disease with stage 1 through stage 4 chronic kidney disease, or unspecified chronic kidney disease 09/22/2018 [facility] Toxic encephalopathy 09/02/2018 [facility] Ulcer of esophagus without bleeding 09/02/2018 [facility] Chronic kidney disease, stage 3 09/02/2018 [facility] Diaphragmatic hernia without obstruction or gangrene 09/02/2018 [facility] Gastritis, unspecified, without bleeding 09/02/2018 [facility] Anemia in other chronic diseases classified elsewhere 09/02/2018 [facility] jail use of insulin 09/02/2018 [facility] Ileostomy status 09/02/2018 [facility] Personal history of nicotine dependence 09/22/2018 [facility] Dehydration 09/22/2018 [facility] Hypomagnesemia 09/22/2018 [facility] Adverse effect of unspecified nonopioid analgesic, antipyretic and antirheumatic, initial encounter 09/02/2018 [facility] Gastro-esophageal reflux disease with esophagitis 09/02/2018 [facility] Hypokalemia 09/22/2018 [facility] Other malaise 09/22/2018 [facility] Nausea with vomiting, unspecified 09/02/2018 [facility] Type 2 diabetes mellitus with hypoglycemia without coma 09/02/2018 [facility] Fever, unspecified 09/02/2018 [facility] Pain in right forearm 09/02/2018 [facility] Unspecified right bundle-branch block 09/02/2018 [facility] Epigastric pain 09/02/2018 [facility] Surgical operation with formation of external stoma as the cause of abnormal reaction of the patient, or of later complication, without mention of misadventure at the time of the procedure 09/02/2018 [facility] Urinary tract infection, site not specified 09/22/2018 [facility] Chronic kidney disease, stage 3 (moderate) 09/22/2018 [facility] Tremor, unspecified 09/22/2018 [facility] Hypocalcemia 09/22/2018 [facility] Pressure ulcer of sacral region, unstageable 09/22/2018 [facility] Anemia in chronic kidney disease 09/22/2018 [facility] Other specified disorders of the skin and subcutaneous tissue 09/22/2018 [facility] Colostomy status 09/22/2018 [facility] Bed confinement status 09/22/2018 [facility] UNSPECIFIED ABDOMINAL PAIN Active [facility] FISTULA OF STOMACH AND DUODENUM Active [facility] ACUTE KIDNEY FAILURE, UNSPECIFIED Active [facility] URINARY TRACT INFECTION, SITE NOT SPECIF Active [facility] Medications Medication Details Route Status Patient Instructions Ordering Provider Order Date Source Octreotide 0.1 MG/ML Injectable Solution [Sandostatin] 100 microgram, SUB-Q, BID, X 30 day, # 60 vial, 0 Refill(s), other No Longer Active 03/05/2018 [facility] loperamide 2 mg oral capsule 2 mg=1 cap, PO, Q4H, PRN loose stools, # 30 cap, 0 Refill(s), other Active 03/05/2018 [facility] potassium chloride 20 mEq oral tablet, extended release 40 mEq, 2 tab, Route: PO, Drug form: ERTAB, ONCE, Dosing Weight 53.4, kg, Start date: 03/05/18 17:41:00 ECOLOGICAL MODELER, Stop date: 03/05/18 17:41:00 CSTNotes: (Same as: K- Dur 20) "Do Not Crush" Give with food and full glass of water For patients unable to swallow tablet, dissolve in one half glass of water. Allow about 2 minutes for the tablets to disintegrate. Stir before giving to prepare slurry an d administer. Please exclude Patients with feeding tube less than 14 [place] (Dobhoff, J-tube etc) and pediatric and patients. Inactive 03/05/2018 [facility] Ondansetron 4 MG Disintegrating Tablet [Zofran] 4 mg=1 tab, PO, TID, Dissolve tab under tongue, # 20 tab, 0 Refill(s) Active 03/05/2018 [facility] enoxaparin 30 mg/0.3 mL subcutaneous solution 30 mg=0.3 mL, SUB-Q, [id number], 0 Refill(s) Active 03/05/2018 [facility] Acetaminophen 300 MG / Codeine Phosphate 30 MG Oral Tablet [Tylenol with Codeine #3] 1 tab, PO, Q6H, PRN Pain, # 25 tab, 0 Refill(s) Active 03/05/2018 [facility] Phenergan 25 mg oral tablet 25 mg=1 tab, PO, Q6H, PRN Nausea, # 30 tab, 0 Refill(s), other Active 03/05/2018 [facility] metoprolol extended release 25 mg, 1 tab, Route: PO, Drug form: ERTAB, Daily, Priority: NOW, Start date: 03/02/18 23:10:00 ECOLOGICAL MODELER, Duration: 30 day, Stop date: 04/01/18 9:00:00 CSTNotes: (Same as: Toprol XL) Do Not Crush No Longer Active 03/03/2018 [facility] Promethazine 25 mg, 1 mL, Route: IVPB, Q6H, Dosing Weight 53.4, kg, PRN Nausea & Vomiting, Start date: 03/02/18 7:41:00 ECOLOGICAL MODELER, Duration: 30 day, Stop date: 04/01/18 7:40:00 CSTNotes: Do not give IV push. (Same as: Phenergan) No Longer Active 03/02/2018 [facility] Magnesium Sulfate 2 gm, 50 mL, Route: IVPB, Drug form: INJ, ONCE, Dosing Weight 53.4, kg, Start date: 02/28/18 17:34:00 ECOLOGICAL MODELER, Stop date: 02/28/18 17:34:00 CSTNotes: WASTE: F/P - Sink; E - Municipal Trash Bin Inactive 02/28/2018 [facility] Tums 1,000 mg, 2 tab, Route: CHEW, Drug form: CHEWTAB, TID-Before Meals, Dosing Weight 53.4, kg, Start date: 02/28/18 16:30:00 ECOLOGICAL MODELER, Duration: 30 day, Stop date: 03/30/18 11:30:00 CSTNotes: (Same As: Tums) Calcium Carbonate 500 lp=036 mg elemental calcium Dose= mg calcium carbonate ( mg elemental calcium) No Longer Active 02/28/2018 [facility] Calcium Gluconate 1,000 mg, 10 mL, Route: IVPB, ONCE, Dosing Weight 53.4, kg, Start date: 02/28/18 13:54:00 ECOLOGICAL MODELER, Stop date: 02/28/18 13:54:00 CSTNotes: WASTE: F/P - Sink; E - [employer] Trash Bin Inactive 02/28/2018 [facility] Magnesium Sulfate 2 gm, 50 mL, Route: IVPB, Drug form: INJ, ONCE, Dosing Weight 53.4, kg, Start date: 02/28/18 13:54:00 ECOLOGICAL MODELER, Stop date: 02/28/18 13:54:00 CSTNotes: WASTE: F/P - Sink; E - Municipal Trash Bin Inactive 02/28/2018 [facility] Magnesium Sulfate 2 gm, 50 mL, Route: IV, Drug form: INJ, ONCE, Dosing Weight 53.4, kg, Start date: 02/28/18 10:56:00 ECOLOGICAL MODELER, Stop date: 02/28/18 10:56:00 CSTNotes: WASTE: F/P - Sink; E - Municipal Trash Bin Inactive 02/28/2018 [facility] Dilaudid 1 mg, 1 mL, Route: IVP, Drug form: SOLN, ONCE, Dosing Weight 53.4, kg, Priority: STAT, Start date: 02/28/18 10:37:00 ECOLOGICAL MODELER, Stop date: 02/28/18 10:37:00 CSTNotes: (Same as: Dilaudid) Inactive 02/28/2018 [facility] Insulin Lispro 2 unit, 0.02 mL, Route: SUB-Q, Drug form: SOLN, Bedtime, Dosing Weight 53.4, kg, PRN Blood Glucose Results, Start date: 02/27/18 22:09:00 ECOLOGICAL MODELER, Duration: 30 day, Stop date: 03/29/18 22:08:00 CSTNotes: (Same as: Humalog ) Roll in palms of hands gently; Do not shake `vigorously. "Single Patient Use Only " WASTE: F/P - Black; E - Municipal Trash Bin Stable for 28 days at room temperature. Expires in days from Date No Longer Active 02/28/2018 [facility] Dextrose 50% Syringe 25 gm, 50 mL, Route: IVP, Drug Form: INJ, Dosing Weight 53.4, kg, PRN, PRN Blood Glucose Results, Start date: 02/27/18 22:09:00 ECOLOGICAL MODELER, Duration: 30 day, Stop date: 03/29/18 22:08:00 ECOLOGICAL MODELER No Longer Active 02/28/2018 [facility] Glucagon 1 mg, Route: IM, Drug form: PDR/INJ, PRN, Dosing Weight 53.4, kg, PRN Blood Glucose Results, Start date: 02/27/18 22:09:00 ECOLOGICAL MODELER, Duration: 30 day, Stop date: 03/29/18 22:08:00 ECOLOGICAL MODELER No Longer Active 02/28/2018 [facility] Tums 1,000 mg, 2 tab, Route: CHEW, Drug form: CHEWTAB, TID-Meals, Dosing Weight 53.4, kg, Start date: 02/27/18 17:00:00 ECOLOGICAL MODELER, Duration: 30 day, Stop date: 03/29/18 12:00:00 CSTNotes: (Same As: Tums) Calcium Carbonate 500 yg=595 mg elemental calcium Dose= mg calcium carbonate ( mg elemental calcium) No Longer Active 02/27/2018 [facility] Calcium Gluconate 2,000 mg, 20 mL, Route: IVPB, ONCE, Dosing Weight 53.4, kg, Start date: 02/27/18 10:59:00 ECOLOGICAL MODELER, Stop date: 02/27/18 10:59:00 CSTNotes: WASTE: F/P - Sink; E - Municipal Trash Bin Inactive 02/27/2018 [facility] Potassium Chloride 1.33 MEQ/ML Oral Solution 20 mEq, 1 tab, Route: PO, Drug form: ERTAB, ONCE, Dosing Weight 53.4, kg, Start date: 02/27/18 10:59:00 ECOLOGICAL MODELER, Stop date: 02/27/18 10:59:00 ECOLOGICAL MODELER Inactive 02/27/2018 [facility] Zinc Oxide 0.2 MG/MG Topical Ointment Route: TOP, BID, Drug form: OINT, Start date: 02/27/18 9:00:00 ECOLOGICAL MODELER, Duration: 30 day, Stop date: 03/28/18 17:00:00 CSTNotes: Same as: Desitin No Longer Active 02/27/2018 [facility] Timothy packet 1 pkt, Route: PO, Drug Form: PWDR, Dosing Weight 53.4, kg, BID-Before Meals, Start date: 02/27/18 7:30:00 ECOLOGICAL MODELER, Duration: 28 day, Stop date: 03/26/18 16:30:00 CSTNotes: (Same as: Timothy [place]) No Longer Active 02/27/2018 [facility] cefepime 1 gm, Route: IVPB, [id number], Dosing Weight 62.727, kg, (CrCl >/=50 ml/min), Start date: 02/26/18 16:00:00 ECOLOGICAL MODELER, Duration: 7 day, Stop date: 03/04/18 16:00:00 ECOLOGICAL MODELER, ABX Indication: Urinary Tract InfectionNotes: (Same As: Maxipime) MEDICATION WASTE Product Size: 1000 mg Product Wasted: ___ mg No Longer Active 02/26/2018 [facility] Promethazine 25 mg, PO, Q6H, 0 Refill(s) No Longer Active 02/26/2018 [facility] Famotidine 40 mg, PO, Bedtime, # 60 tab, 0 Refill(s) Active 02/26/2018 [facility] pramipexole 0.125 mg oral tablet 0.125 mg=1 tab, PO, Daily, 0 Refill(s) Active 02/26/2018 [facility] sucralfate 1 g oral tablet 1 gm=1 tab, PO, QID-Before Meals, 0 Refill(s) Active 02/26/2018 [facility] Sodium Bicarbonate 10 grain, PO, BID, 0 Refill(s) Active 02/26/2018 [facility] atorvastatin 40 mg oral tablet 40 mg=1 tab, PO, Bedtime, # 90 tab, 1 Refill(s) Active 02/26/2018 [facility] Lovenox 30 mg, 0.3 mL, Route: SUB-Q, Drug form: INJ, [id number], Dosing Weight 62.727, kg, Start date: 02/25/18 20:00:00 ECOLOGICAL MODELER, Duration: 30 day, Stop date: 03/26/18 20:00:00 CSTNotes: (Same as: Lovenox) No Longer Active 02/26/2018 [facility] Calcium Gluconate 3,000 mg, 30 mL, Route: IVPB, ONCE, Dosing Weight 62.727, kg, Start date: 02/25/18 18:58:00 ECOLOGICAL MODELER, Stop date: 02/25/18 18:58:00 CSTNotes: WASTE: F/P - Sink; E - Municipal Trash Bin Inactive 02/26/2018 [facility] Hydromorphone 0.5 mg, Route: IVP, ONCE, Dosing Weight 62.727, kg, Priority: STAT, Start date: 02/25/18 18:45:00 ECOLOGICAL MODELER, Stop date: 02/25/18 18:45:00 ECOLOGICAL MODELER Inactive 02/26/2018 [facility] Hydralazine 10 mg, 0.5 mL, Route: IVP, Drug form: INJ, Q4H, Dosing Weight 62.727, kg, PRN Hypertension, Priority: Routine, Start date: 02/25/18 18:09:00 ECOLOGICAL MODELER, Duration: 30 day, Stop date: 03/27/18 18:08:00 CSTNotes: (Same as: Apresoline) Push over 5 minutes No Longer Active 02/26/2018 [facility] Seroquel 25 mg, 1 tab, Route: PO, Drug form: TAB, BID, Dosing Weight 62.727, kg, PRN Agitation, Start date: 02/25/18 18:09:00 ECOLOGICAL MODELER, Duration: 30 day, Stop date: 03/27/18 18:08:00 CSTNotes: (Same as: SEROquel) No Longer Active 02/26/2018 [facility] Acetaminophen 325 MG / Hydrocodone Bitartrate 5 MG Oral Tablet [[place] 5/325] 1 tab, Route: PO, Drug Form: TAB, Dosing Weight 62.727, kg, Q6H, PRN Pain Score 1-3, Start date: 02/25/18 18:09:00 ECOLOGICAL MODELER, Duration: 30 day, Stop date: 03/27/18 18:08:00 CSTNotes: (Same as: [place] 325/5) Do not exceed 4gm/day of acetaminophen. No Longer Active 02/26/2018 [facility] Morphine 2 mg, 0.5 mL, Route: IVP, Drug form: SOLN, Q4H, Dosing Weight 62.727, kg, PRN Pain Score 7-10, Start date: 02/25/18 18:09:00 ECOLOGICAL MODELER, Duration: 30 day, Stop date: 03/27/18 18:08:00 CSTNotes: (Same as:MORPhine Sulfate) No Longer Active 02/26/2018 [facility] magnesium citrate 58.2 MG/ML Oral Solution 300 ml, Route: PO, Drug Form: LIQ, Dosing Weight 62.727, kg, ONCE, PRN Constipation, Start date: 02/25/18 18:09:00 CSTNotes: (Same as: Citrate of Magnesia) Concentration: 1.745 gm / 30 mL No Longer Active 02/26/2018 [facility] Nicotine 21 mg, 1 patch, Route: TOP, Drug form: ERFILM, Daily, Dosing Weight 62.727, kg, PRN as needed for smoking cessation, Start date: 02/25/18 18:09:00 ECOLOGICAL MODELER, Duration: 30 day, Stop date: 03/27/18 18:08:00 ECOLOGICAL MODELER Notes: (Same as: Habitrol) "Remove old patch before application of new patch" WASTE: F/P - P Waste Black; E - P Waste Black No Longer Active 02/26/2018 [facility] Glucagon 1 mg, Route: IM, Drug form: PDR/INJ, PRN, Dosing Weight 62.727, kg, PRN Blood Glucose Results, Start date: 02/25/18 18:09:00 ECOLOGICAL MODELER, Duration: 30 day, Stop date: 03/27/18 18:08:00 ECOLOGICAL MODELER No Longer Active 02/26/2018 [facility] Dextrose 50% Syringe 12.5 gm, 25 mL, Route: IVP, Drug Form: INJ, Dosing Weight 62.727, kg, PRN, PRN Blood Glucose Results, Start date: 02/25/18 18:09:00 ECOLOGICAL MODELER, Duration: 30 day, Stop date: 03/27/18 18:08:00 ECOLOGICAL MODELER No Longer Active 02/26/2018 [facility] Acetaminophen 650 mg, 2 tab, Route: PO, Drug form: TAB, Q6H, Dosing Weight 62.727, kg, PRN For Temp > 100.4 F, Start date: 02/25/18 18:09:00 ECOLOGICAL MODELER, Duration: 30 day, Stop date: 03/27/18 18:08:00 CSTNotes: Do not exceed 4 gm/day. (Same as: Tylenol) No Longer Active 02/26/2018 [facility] Trazodone 50 mg, 1 tab, Route: PO, Drug form: TAB, Bedtime, Dosing Weight 62.727, kg, PRN Insomnia, Start date: 02/25/18 18:09:00 ECOLOGICAL MODELER, Duration: 30 day, Stop date: 03/27/18 18:08:00 CSTNotes: (Same As: Desyrel) No Longer Active 02/26/2018 [facility] Melatonin 3 mg, 1 tab, Route: PO, Drug form: TAB, Bedtime, Dosing Weight 62.727, kg, PRN Insomnia, Start date: 02/25/18 18:09:00 ECOLOGICAL MODELER, Duration: 30 day, Stop date: 03/27/18 18:08:00 CSTNotes: (Same as: Melatonin) No Longer Active 02/26/2018 [facility] Diphenhydramine 25 mg, 1 tab, Route: PO, Drug form: TAB, Q6H, Dosing Weight 62.727, kg, PRN as needed for allergy symptoms, Start date: 02/25/18 18:09:00 ECOLOGICAL MODELER, Duration: 30 day, Stop date: 03/27/18 18:08:00 ECOLOGICAL MODELER No Longer Active 02/26/2018 [facility] POLYETHYLENE GLYCOL 3350 17 gm, 1 pkt, Route: PO, Drug form: PWDR, Daily, Dosing Weight 62.727, kg, PRN Constipation, Start date: 02/25/18 18:09:00 ECOLOGICAL MODELER, Duration: 30 day, Stop date: 03/27/18 18:08:00 CSTNotes: Dissolve in 8 oz of water or juice. (Same as: Miralax) No Longer Active 02/26/2018 [facility] Ondansetron 4 mg, 2 mL, Route: IVP, Drug form: INJ, Q6H, Dosing Weight 62.727, kg, PRN Nausea & Vomiting, Start date: 02/25/18 18:09:00 ECOLOGICAL MODELER, Duration: 30 day, Stop date: 03/27/18 18:08:00 CSTNotes: (Same as: Zofran) MEDICATION WASTE Product Size: 4 mg Product Wasted: ___ mg No Longer Active 02/26/2018 [facility] Bisacodyl 10 mg, 1 supp, Route: NC, Drug form: SUPP, Daily, Dosing Weight 62.727, kg, PRN Constipation, Start date: 02/25/18 18:09:00 ECOLOGICAL MODELER, Duration: 30 day, Stop date: 03/27/18 18:08:00 CSTNotes: (Same As: Dulcolax, [place]-Lax) No Longer Active 02/26/2018 [facility] NS 1,000 mL 1,000 mL, Rate: 125 ml/hr, Infuse over: 8 hr, Route: IV, Dosing Weight 53.4 kg, Total Volume: 1,000, Start date: 02/25/18 16:38:00 ECOLOGICAL MODELER, Duration: 30 day, Stop date: 03/27/18 16:37:00 ECOLOGICAL MODELER, 1.38, m2 No Longer Active 02/25/2018 [facility] Sodium Chloride 0.9% (Bolus) IV 1,000 mL, 1000 ml/hr, Infuse Over: 1 hr, Route: IV, 1,000, Drug form: INJ, ONCE, Priority: STAT, Dosing Weight 62.727 kg, Start date: 02/25/18 15:24:00 ECOLOGICAL MODELER, Stop date: 02/25/18 15:24:00 ECOLOGICAL MODELER Inactive 02/25/2018 [facility] cefepime 1 gm, Route: IVPB, ONCE, Dosing Weight 62.727, kg, Priority: STAT, Start date: 02/25/18 15:20:00 ECOLOGICAL MODELER, Stop date: 02/25/18 15:20:00 ECOLOGICAL MODELER, ABX Indication: Urinary Tract Infection Inactive 02/25/2018 [facility] Morphine 2 mg, 1 mL, Route: IVP, Drug form: SOLN, ONCE, Dosing Weight 62.727, kg, Priority: STAT, Start date: 02/25/18 13:24:00 ECOLOGICAL MODELER, Stop date: 02/25/18 13:24:00 ECOLOGICAL MODELER Inactive 02/25/2018 [facility] Ondansetron 4 mg, 2 mL, Route: IVP, Drug form: INJ, ONCE, Dosing Weight 62.727, kg, Priority: STAT, Start date: 02/25/18 13:24:00 ECOLOGICAL MODELER, Stop date: 02/25/18 13:24:00 CSTNotes: (Same as: Tomas) MEDICATION WASTE Product Size: 4 mg Product Wasted: ___ mg Inactive 02/25/2018 [facility] Sodium Chloride 0.9% (Bolus) IV 1,000 mL, 1000 ml/hr, Infuse Over: 1 hr, Route: IV, 1,000, Drug form: INJ, ONCE, Priority: STAT, Dosing Weight 62.727 kg, Start date: 02/25/18 13:24:00 ECOLOGICAL MODELER, Stop date: 02/25/18 13:24:00 ECOLOGICAL MODELER Inactive 02/25/2018 [facility] Saline Flush 0.9% 10 mL, Route: IVP, Drug Form: INJ, Dosing Weight 62.727, kg, PRN, PRN Line Flush, Start date: 02/25/18 13:24:00 ECOLOGICAL MODELER, Duration: 30 day, Stop date: 03/27/18 13:23:00 CSTNotes: Same as: BD Posiflush Sterile No Longer Active 02/25/2018 [facility] Urocit-K 10 mEq, 1 tab, Route: PO, Drug form: ERTAB, TID- Meals, Dosing Weight 59.091, kg, Start date: 02/13/18 17:00:00 ECOLOGICAL MODELER, Duration: 30 day, Stop date: 03/15/18 12:00:00 ECOLOGICAL MODELER Inactive 02/13/2018 [facility] Calcium Gluconate 2,000 mg, 20 mL, Route: IVPB, ONCE, Dosing Weight 59.091, kg, Start date: 02/13/18 11:36:00 ECOLOGICAL MODELER, Stop date: 02/13/18 11:36:00 CSTNotes: WASTE: F/P - Sink; E - Municipal Trash Bin Inactive 02/13/2018 [facility] Prednisone 60 mg, 3 tab, Route: PO, Drug form: TAB, Daily, Dosing Weight 59.091, kg, Priority: NOW, Start date: 02/12/18 13:23:00 ECOLOGICAL MODELER, Duration: 5 day, Stop date: 02/17/18 9:00:00 CSTNotes: Take with food. No Longer Active 02/12/2018 [facility] Sodium Bicarbonate 325 MG Oral Tablet 650 mg, 1 tab, Route: PO, Drug form: TAB, BID, Dosing Weight 59.091, kg, Start date: 02/12/18 9:00:00 ECOLOGICAL MODELER, Duration: 30 day, Stop date: 03/13/18 17:00:00 CSTNotes: "Dissolve tablet in a glass of water prior to oral administration. STOMACH WARNING: To avoid serious injury, do not take until tablet is completely dissolved. It is very important not to take this product when overly full from food or drink." No Longer Active 02/12/2018 [facility] sodium bicarbonate 8.4% additive 75 mEq + D5W 1/2NS 1,000 mL 1,000 mL, Rate: 75 ml/hr, Infuse over: 14.3 hr, Route: IV, Dosing Weight 59.091 kg, Total Volume: 1,075, Start date: 02/12/18 7:59:00 ECOLOGICAL MODELER, Duration: 30 day, Stop date: 03/14/18 7:58:00 ECOLOGICAL MODELER, 1.58, [id number]: (sodium bicarb 8.4% (1 mEq/ml) 50 ml VL) No Longer Active 02/12/2018 [facility] Merrem 500 mg, Route: IVPB, [id number], Dosing Weight 59.091, kg, CrCL >=50ml/min, Extended infusion, infuse over 3 hours, Start date: 02/07/18 16:00:00 ECOLOGICAL MODELER, Duration: 10 day, Stop date: 02/17/18 10:00:00 ECOLOGICAL MODELER, ABX Indication: BacteremiaNotes: Same as Merrem MEDICATION WASTE Product Size: 500 mg Product Wasted: ___ mg No Longer Active 02/07/2018 [facility] meropenem + sterile water 10 mL 500 mg, Route: IV, ONCE, Start date: 02/07/18 8:06:00 ECOLOGICAL MODELER, Stop date: 02/07/18 8:06:00 ECOLOGICAL MODELER, ABX Indication: BacteremiaNotes: Same as Merrem MEDICATION WASTE Product Size: 500 mg Product Wasted: ___ mg Inactive 02/07/2018 [facility] Imitrex 6 mg, 0.5 mL, Route: SUB-Q, Drug form: INJ, ONCE, Dosing Weight 59.091, kg, PRN Headache 6-10, Start date: 02/04/18 14:38:00 CSTNotes: For SUBCUTANEOUS use only Inactive 02/04/2018 [facility] D5NS 1,000 mL 1,000 mL, Rate: 75 ml/hr, Infuse over: 13.3 hr, Route: IV, Dosing Weight 59.091 kg, Total Volume: 1,000, Start date: 02/04/18 7:09:00 ECOLOGICAL MODELER, Duration: 30 day, Stop date: 03/06/18 7:08:00 ECOLOGICAL MODELER, 1.58, m2 No Longer Active 02/04/2018 [facility] sodium bicarbonate 8.4% additive 75 mEq + 1/2 NS 1,000 mL 1,000 mL, Rate: 70 ml/hr, Infuse over: 15.4 hr, Route: IV, Dosing Weight 59.091 kg, Total Volume: 1,075, Start date: 01/31/18 10:34:00 ECOLOGICAL MODELER, Duration: 30 day, Stop date: 03/02/18 10:33:00 ECOLOGICAL MODELER, 1.58, [id number]: (sodium bicarb 8.4% (1 mEq/ml) 50 ml VL) No Longer Active 01/31/2018 [facility] Adult Parenteral Nutrition Custom - Central (TPN) 1,850 mL 1,850 mL, Rate: 75 ml/hr, Infuse over: 24.7 hr, Dosing Weight 59.091, kg, Route: IV, Total Volume: 1,850 mL, Start Date: 01/26/18 22:00:00 ECOLOGICAL MODELER, Duration: 24 hr, Stop date: 01/27/18 21:59:00 ECOLOGICAL MODELER, Replace Every: 24 hrNotes: Central line only Must use 1.2 micron filter AND Lipids should not be administered to patients who are allergic to soy, fish, egg or peanuts. No Longer Active 01/27/2018 [facility] Magnesium Sulfate 2 gm, 50 mL, Route: IVPB, Drug form: INJ, ONCE, Dosing Weight 59.091, kg, Start date: 01/26/18 13:19:00 ECOLOGICAL MODELER, Stop date: 01/26/18 13:19:00 CSTNotes: WASTE: F/P - Sink; E - Municipal Trash Bin Inactive 01/26/2018 [facility] Insulin Lispro 2 unit, 0.02 mL, Route: SUB-Q, Drug form: SOLN, Bedtime, Dosing Weight 59.091, kg, PRN Blood Glucose Results, Start date: 01/26/18 12:49:00 ECOLOGICAL MODELER, Duration: 30 day, Stop date: 02/25/18 12:48:00 CSTNotes: (Same as: Humalog ) Roll in palms of hands gently; Do not shake `vigorously. "Single Patient Use Only " WASTE: F/P - Black; E - Municipal Trash Bin Stable for 28 days at room temperature. Expires in days from Date No Longer Active 01/26/2018 [facility] Dextrose 50% Syringe 25 mL, Route: IVP, Dosing Weight 59.091, kg, PRN, PRN Blood Glucose Results, Start date: 01/26/18 12:49:00 ECOLOGICAL MODELER, Duration: 30 day, Stop date: 02/25/18 12:48:00 ECOLOGICAL MODELER Inactive 01/26/2018 [facility] Glucagon 1 mg, Route: IM, PRN, Dosing Weight 59.091, kg, PRN Blood Glucose Results, Start date: 01/26/18 12:49:00 ECOLOGICAL MODELER, Duration: 30 day, Stop date: 02/25/18 12:48:00 ECOLOGICAL MODELER Inactive 01/26/2018 [facility] Adult Parenteral Nutrition Custom - Central (TPN) 1,850 mL 1,850 mL, Rate: 75 ml/hr, Infuse over: 24.7 hr, Dosing Weight 59.091, kg, Route: IV, Total Volume: 1,850 mL, Start Date: 01/25/18 22:00:00 ECOLOGICAL MODELER, Duration: 24 hr, Stop date: 01/26/18 21:59:00 ECOLOGICAL MODELER, Replace Every: 24 hrNotes: Central line only Must use 1.2 micron filter AND Lipids should not be administered to patients who are allergic to soy, fish, egg or peanuts. No Longer Active 01/26/2018 [facility] Levemir FlexPen 15 unit, Route: SUB-Q, Bedtime, Dosing Weight 59.091, kg, Start date: 01/25/18 21:00:00 ECOLOGICAL MODELER, Duration: 30 day, Stop date: 02/23/18 21:00:00 ECOLOGICAL MODELER Inactive 01/26/2018 [facility] insulin glargine 15 unit, 0.15 mL, Route: SUB-Q, Drug form: SOLN, Bedtime, Start date: 01/25/18 21:00:00 ECOLOGICAL MODELER, Duration: 30 day, Stop date: 02/23/18 21:00:00 CSTNotes: (Same as: Lantus) Do not hold insulin without contac ting prescriber WASTE: F/P - Black; E - Municipal Trash Bin "single patient use only" No Longer Active 01/26/2018 [facility] Adult Parenteral Nutrition Custom - Central (TPN) 1,850 mL 1,850 mL, Rate: 75 ml/hr, Infuse over: 24.7 hr, Dosing Weight 59.091, kg, Route: IV, Total Volume: 1,850 mL, Start Date: 01/24/18 22:00:00 ECOLOGICAL MODELER, Duration: 24 hr, Stop date: 01/25/18 21:59:00 ECOLOGICAL MODELER, Replace Every: 24 hr No Longer Active 01/25/2018 [facility] K-Dur 20 40 mEq, 2 tab, Route: PO, Drug form: ERTAB, BID, Dosing Weight 59.091, kg, Priority: Routine, Start date: 01/24/18 18:30:00 ECOLOGICAL MODELER, Duration: 1 doses or times, Stop date: [...] Patients with feeding tube less than 14 [place] (Dobhoff, J-tube etc) and pediatric and patients. Inactive 01/25/2018 [facility] Protonix 40 mg, 1 tab, Route: PO, Drug form: ECTAB, BID, Dosing Weight 59.091, kg, Start date: 01/24/18 17:00:00 ECOLOGICAL MODELER, Duration: 30 day, Stop date: 02/23/18 9:00:00 CSTNotes: Tablet should not be chewed or crushed. (Same as: Protonix) No Longer Active 01/24/2018 [facility] Potassium Chloride 40 mEq, 30 mL, Route: PO, Drug form: LIQ, BID, Dosing Weight 59.091, kg, Priority: Routine, Start date: 01/24/18 9:00:00 ECOLOGICAL MODELER, Duration: 2 doses or times, Stop date: 01/24/18 17:00:00 CSTNotes: (Same as: Potassium Chloride) Inactive 01/24/2018 [facility] Adult Parenteral Nutrition Custom - Central (TPN) 1,850 mL 1,850 mL, Rate: 75 ml/hr, Infuse over: 24.7 hr, Dosing Weight 59.091, kg, Route: IV, Total Volume: 1,850 mL, Start Date: 01/23/18 22:00:00 ECOLOGICAL MODELER, Duration: 24 hr, Stop date: 01/24/18 21:59:00 ECOLOGICAL MODELER, Replace Every: 24 hr No Longer Active 01/24/2018 [facility] Insulin Lispro 3 unit, 0.03 mL, Route: SUB-Q, Drug form: SOLN, Sliding Scale, Dosing Weight 59.091, kg, PRN Blood Glucose Results, Start date: 01/23/18 21:46:00 ECOLOGICAL MODELER, Duration: 30 day, Stop date: 02/22/18 21:45:00 CSTN otes: (Same as: Humalog ) Roll in palms of hands gently; Do not shake `vigorously. "Single Patient Use Only " WASTE: F/P - Black; E - Municipal Trash Bin Stable for 28 days at room temperature. Expires in days from Date No Longer Active 01/24/2018 [facility] Glucagon 1 mg, Route: IM, Drug form: PDR/INJ, PRN, Dosing Weight 59.091, kg, PRN Blood Glucose Results, Start date: 01/23/18 21:46:00 ECOLOGICAL MODELER, Duration: 30 day, Stop date: 02/22/18 21:45:00 ECOLOGICAL MODELER No Longer Active 01/24/2018 [facility] Dextrose 50% Syringe 25 gm, 50 mL, Route: IVP, Drug Form: INJ, Dosing Weight 59.091, kg, PRN, PRN Blood Glucose Results, Start date: 01/23/18 21:46:00 ECOLOGICAL MODELER, Duration: 30 day, Stop date: 02/22/18 21:45:00 ECOLOGICAL MODELER No Longer Active 01/24/2018 [facility] D5W 1/2NS + KCL 30mEq/L 1000ml (Premix) 1,000 mL 1,000 mL, Rate: 100 ml/hr, Infuse over: 10 hr, Route: IV, Dosing Weight 59.091 kg, Total Volume: 1,000, Start date: 01/23/18 15:57:00 ECOLOGICAL MODELER, Duration: 30 day, Stop date: 02/22/18 15:56:00 ECOLOGICAL MODELER, 1.58, [id number]: PREMIX IV - Do Not Alter WASTE: F/P - Sink; E - Municipal Trash Bin Inactive 01/23/2018 [facility] Sucralfate 100 MG/ML Oral Suspension [Carafate] 1 gm, 1 tab, Route: PO, Drug form: TAB, QID, Dosing Weight 59.091, kg, Start date: 01/23/18 9:00:00 ECOLOGICAL MODELER, Duration: 30 day, Stop date: 02/21/18 21:00:00 CSTNotes: May interfere w/enteral feeds - Take 1 hr before or 2 hr after antacids, dairy pdt, meals & minerals - On empty stomach. For patients unable to swallow tablet, dissolve in 10mL - 30mL of water or juice and stir before giving. (Same As: Carafate) No Longer Active 01/23/2018 [facility] Sodium Chloride 0.9% IV 1,000 mL 1,000 mL, Rate: 25 ml/hr, Infuse over: 40 hr, Route: IV, Dosing Weight 59.091 kg, Total Volume: 1,000, Start date: 01/23/18 8:24:00 ECOLOGICAL MODELER, Duration: 1 day, Stop date: 01/24/18 8:23:00 ECOLOGICAL MODELER, 1.58, m2 Inactive 01/23/2018 [facility] Amlodipine 10 mg, 2 tab, Route: PO, Drug form: TAB, Daily, Dosing Weight 59.091, kg, Start date: 01/22/18 9:00:00 ECOLOGICAL MODELER, Duration: 30 day, Stop date: 03/22/18 9:00:00 CSTNotes: (Same as: Norvasc) No Longer Active 01/22/2018 [facility] Sertraline 100 mg, 1 tab, Route: PO, Drug form: TAB, Daily, Dosing Weight 59.091, kg, Start date: 01/22/18 9:00:00 ECOLOGICAL MODELER, Duration: 30 day, Stop date: 03/22/18 9:00:00 CSTNotes: (Same as: Zoloft) No Longer Active 01/22/2018 [facility] Protonix 40 mg, 1 tab, Route: PO, Drug form: ECTAB, Daily, Dosing Weight 59.091, kg, Start date: 01/22/18 9:00:00 ECOLOGICAL MODELER, Duration: 30 day, Stop date: 02/20/18 9:00:00 CSTNotes: Tablet should not be chewed or crushed. (Same as: Protonix) No Longer Active 01/22/2018 [facility] 24 HR Metoprolol Tartrate 25 MG Extended Release Tablet [Toprol] 25 mg, 1 tab, Route: PO, Drug form: ERTAB, Daily, Start date: 01/22/18 9:00:00 ECOLOGICAL MODELER, Duration: 30 day, Stop date: 03/22/18 9:00:00 CSTNotes: (Same as: Toprol XL) Do Not Crush No Longer Active 01/22/2018 [facility] gabapentin 300 MG Oral Capsule 300 mg, 1 cap, Route: PO, Drug form: CAP, Daily, Dosing Weight 59.091, kg, Start date: 01/22/18 9:00:00 ECOLOGICAL MODELER, Duration: 30 day, Stop date: 02/20/18 9:00:00 CSTNotes: (Same as: Neurontin) No Longer Active 01/22/2018 [facility] sodium bicarbonate 8.4% 50 mEq, 50 ml, Route: IVP, Drug Form: INJ, Dosing Weight 59.091, kg, ONCE, Start date: 01/22/18 6:44:00 ECOLOGICAL MODELER, Stop date: 01/22/18 6:44:00 CSTNotes: (sodium bicarb 8.4% (1 mEq/ml) 50 ml syringe) Inactive 01/22/2018 [facility] Magnesium Sulfate 2 gm, 50 mL, Route: IV, Drug form: INJ, ONCE, Dosing Weight 59.091, kg, Start date: 01/22/18 6:43:00 ECOLOGICAL MODELER, Stop date: 01/22/18 6:43:00 CSTNotes: WASTE: F/P - Sink; E - Municipal Trash Bin Inactive 01/22/2018 [facility] Water 1000 MG/ML Injectable Solution 1,000 mL, Rate: 125 ml/hr, Infuse over: 9.2 hr, Route: IV, Dosing Weight 59.091 kg, Total Volume: 1,150, Start date: 01/22/18 6:43:00 ECOLOGICAL MODELER, Duration: 30 day, Stop date: 02/21/18 6:42:00 ECOLOGICAL MODELER, 1.58, [id number]: (sodium bicarb 8.4% (1 mEq/ml) 50 ml VL) No Longer Active 01/22/2018 [facility] carvedilol 6.25 mg, 2 tab, Route: PO, Drug form: TAB, BID, Dosing Weight 59.091, kg, Start date: 01/21/18 21:00:00 ECOLOGICAL MODELER, Duration: 30 day, Stop date: 02/20/18 9:00:00 CSTNotes: Give with food. (Same As: Coreg) Inactive 01/22/2018 [facility] sennosides, SNF 17.2 mg, 2 tab, Route: PO, Drug Form: TAB, Dosing Weight 59.091, kg, Bedtime, Start date: 01/21/18 21:00:00 ECOLOGICAL MODELER, Duration: 30 day, Stop date: 02/19/18 21:00:00 CSTNotes: (Same as: Senokot) No Longer Active 01/22/2018 [facility] Insulin Lispro 2 unit, 0.02 mL, Route: SUB-Q, Drug form: SOLN, Bedtime, Dosing Weight 59.091, kg, PRN Blood Glucose Results, Start date: 01/21/18 17:44:00 ECOLOGICAL MODELER, Duration: 30 day, Stop date: 02/20/18 17:43:00 CSTNotes: (Same as: Humalog ) Roll in palms of hands gently; Do not shake `vigorously. "Single Patient Use Only " WASTE: F/P - Black; E - Municipal Trash Bin Stable for 28 days at room temperature. Expires in days from Date No Longer Active 01/21/2018 [facility] Glucagon 1 mg, Route: IM, PRN, Dosing Weight 59.091, kg, PRN Blood Glucose Results, Start date: 01/21/18 17:44:00 ECOLOGICAL MODELER, Duration: 30 day, Stop date: 02/20/18 17:43:00 ECOLOGICAL MODELER Inactive 01/21/2018 [facility] Dextrose 50% Syringe 50 mL, Route: IVP, Dosing Weight 59.091, kg, PRN, PRN Blood Glucose Results, Start date: 01/21/18 17:44:00 ECOLOGICAL MODELER, Duration: 30 day, Stop date: 02/20/18 17:43:00 ECOLOGICAL MODELER Inactive 01/21/2018 [facility] Morphine 2 mg, 1 mL, Route: IV, Drug form: SOLN, Q4H, Dosing Weight 59.091, kg, PRN Pain Score 6-10, Start date: 01/21/18 17:41:00 ECOLOGICAL MODELER, Duration: 30 day, Stop date: 02/20/18 17:40:00 ECOLOGICAL MODELER No Longer Active 01/21/2018 [facility] Phenergan 12.5 mg, 0.5 mL, Route: IVPB, Q6H, Dosing Weight 59.091, kg, PRN as needed for nausea/vomiting, Start date: 01/21/18 17:41:00 ECOLOGICAL MODELER, Duration: 30 day, Stop date: 02/20/18 17:40:00 CSTNotes: Do not give IV push. (Same as: Phenergan) No Longer Active 01/21/2018 [facility] NS (Bolus) IV 1,000 mL, 500 ml/hr, Infuse Over: 2 hr, Route: IV, 1,000, Drug form: INJ, ONCE, Priority: STAT, Dosing Weight 59.091 kg, Start date: 01/21/18 17:39:00 ECOLOGICAL MODELER, Stop date: 01/21/18 17:39:00 ECOLOGICAL MODELER Inactive 01/21/2018 [facility] Docusate 100 mg, 1 cap, Route: PO, Drug form: CAP, BID, Dosing Weight 59.091, kg, Start date: 01/21/18 17:00:00 ECOLOGICAL MODELER, Duration: 30 day, Stop date: 02/20/18 9:00:00 CSTNotes: (Same as: Colace) (Do Not Crush) No Longer Active 01/21/2018 [facility] Metoprolol Succinate ER 50 mg oral tablet, extended release 50 mg=1 tab, PO, Daily, TAKE 1 TABLET BY MOUTH EVERY DAY Active 01/21/2018 [facility] Lorazepam 0.5 mg, 1 tab, Route: PO, Drug form: TAB, BID, Dosing Weight 59.091, kg, PRN Anxiety, Start date: 01/21/18 12:38:00 ECOLOGICAL MODELER, Duration: 30 day, Stop date: 02/20/18 12:37:00 CSTNotes: (Same as: Ativan) No Longer Active 01/21/2018 [facility] Phenergan 25 mg, 1 mL, Route: IVPB, Q6H, Dosing Weight 59.091, kg, PRN Nausea & Vomiting, Start date: 01/21/18 12:37:00 ECOLOGICAL MODELER, Duration: 30 day, Stop date: 02/20/18 12:36:00 CSTNotes: Do not give IV push. (Same as: Phenergan) Inactive 01/21/2018 [facility] Acetaminophen 325 MG / Hydrocodone Bitartrate 5 MG Oral Tablet [[place] 5/325] 1 tab, Route: PO, Drug Form: TAB, Dosing Weight 59.091, kg, Q6H, PRN Pain Score 1-3, Start date: 01/21/18 12:35:00 ECOLOGICAL MODELER, Duration: 30 day, Stop date: 02/20/18 12:34:00 CSTNotes: (Same as: [place] 325/5) Do not exceed 4gm/day of acetaminophen. No Longer Active 01/21/2018 [facility] Morphine 4 mg, 1 mL, Route: IVP, Drug form: SOLN, Q4H, Dosing Weight 59.091, kg, PRN Pain Score 7-10, Start date: 01/21/18 12:35:00 ECOLOGICAL MODELER, Duration: 30 day, Stop date: 02/20/18 12:34:00 CSTNotes: (Same as:MORPhine Sulfate) Inactive 01/21/2018 [facility] NS (Bolus) IV 1,000 mL, 500 ml/hr, Infuse Over: 2 hr, Route: IV, 1,000, Drug form: INJ, ONCE, Priority: STAT, Dosing Weight 59.091 kg, Start date: 01/21/18 12:33:00 ECOLOGICAL MODELER, Stop date: 01/21/18 12:33:00 ECOLOGICAL MODELER Inactive 01/21/2018 [facility] Magnesium Sulfate 2 gm, 50 mL, Route: IVPB, Drug form: INJ, ONCE, Dosing Weight 59.091, kg, Start date: 01/21/18 12:32:00 ECOLOGICAL MODELER, Stop date: 01/21/18 12:32:00 CSTNotes: WASTE: F/P - Sink; E - Municipal Trash Bin Inactive 01/21/2018 [facility] Morphine 4 mg, Route: IVP, ONCE, Dosing Weight 59.091, kg, Start date: 01/21/18 10:30:00 ECOLOGICAL MODELER, Stop date: 01/21/18 10:30:00 ECOLOGICAL MODELER Inactive 01/21/2018 [facility] NS 1,000 mL 1,000 mL, Rate: 125 ml/hr, Infuse over: 8 hr, Route: IV, Dosing Weight 59.091 kg, Total Volume: 1,000, Start date: 01/21/18 10:10:00 ECOLOGICAL MODELER, Duration: 30 day, Stop date: 02/20/18 10:09:00 ECOLOGICAL MODELER, 1.58, m2 No Longer Active 01/21/2018 [facility] NS 500 mL 500 mL, Rate: 1,000 ml/hr, Infuse over: 0.5 hr, Route: IV, Dosing Weight 59.091 kg, Total Volume: 500, Start date: 01/21/18 10:10:00 ECOLOGICAL MODELER, Duration: 1 doses or times, Stop date: 01/21/18 14:09:00 ECOLOGICAL MODELER, Bolus Dose, 1.58, m2 Inactive 01/21/2018 [facility] Dextrose 50% Syringe 25 gm, 50 mL, Route: IVP, Drug Form: INJ, Dosing Weight 59.091, kg, PRN, PRN Blood Glucose Results, Start date: 01/21/18 9:40:00 ECOLOGICAL MODELER, Duration: 30 day, Stop date: 02/20/18 9:39:00 ECOLOGICAL MODELER No Longer Active 01/21/2018 [facility] Glucagon 1 mg, Route: IM, Drug form: PDR/INJ, PRN, Dosing Weight 59.091, kg, PRN Blood Glucose Results, Start date: 01/21/18 9:40:00 ECOLOGICAL MODELER, Duration: 30 day, Stop date: 02/20/18 9:39:00 ECOLOGICAL MODELER No Longer Active 01/21/2018 [facility] Acetaminophen 650 mg, 2 tab, Route: PO, Drug form: TAB, Q4H, Dosing Weight 59.091, kg, PRN For Temp > 100.4 F, Start date: 01/21/18 9:40:00 ECOLOGICAL MODELER, Duration: 30 day, Stop date: 02/20/18 9:39:00 CSTNotes: Do not exceed 4 gm/day. (Same as: Tylenol) No Longer Active 01/21/2018 [facility] Melatonin 3 mg, 1 tab, Route: PO, Drug form: TAB, Bedtime, Dosing Weight 59.091, kg, PRN Insomnia, Start date: 01/21/18 9:40:00 ECOLOGICAL MODELER, Duration: 30 day, Stop date: 02/20/18 9:39:00 CSTNotes: (Same as: Melatonin) No Longer Active 01/21/2018 [facility] Ondansetron 4 mg, 2 mL, Route: IVP, Drug form: INJ, Q8H, Dosing Weight 59.091, kg, PRN Nausea & Vomiting, Start date: 01/21/18 9:40:00 ECOLOGICAL MODELER, Duration: 30 day, Stop date: 02/20/18 9:39:00 CSTNotes: (Same as: Zofran) MEDICATION WASTE Product Size: 4 mg Product Wasted: ___ mg No Longer Active 01/21/2018 [facility] Metoprolol 5 mg, Route: IVP, Drug form: INJ, ONCE, Dosing Weight 59.091, kg, Priority: STAT, Start date: 01/21/18 9:37:00 ECOLOGICAL MODELER, Stop date: 01/21/18 9:37:00 ECOLOGICAL MODELER Inactive 01/21/2018 [facility] Morphine 4 mg, 1 mL, Route: IVP, Drug form: SOLN, ONCE, Dosing Weight 59.091, kg, Priority: STAT, Start date: 01/21/18 8:05:00 ECOLOGICAL MODELER, Stop date: 01/21/18 8:05:00 CSTNotes: (Same as:MORPhine Sulfate) Inactive 01/21/2018 [facility] Sodium Chloride 0.9% (Bolus) IV 1,000 mL, 1000 ml/hr, Infuse Over: 1 hr, Route: IV, 1,000, Drug form: INJ, ONCE, Priority: STAT, Dosing Weight 59.091 kg, Start date: 01/21/18 7:58:00 ECOLOGICAL MODELER, Stop date: 01/21/18 7:58:00 ECOLOGICAL MODELER Inactive 01/21/2018 [facility] Ondansetron 4 mg, Route: IVP, Drug form: INJ, ONCE, Dosing Weight 59.091, kg, Priority: STAT, Start date: 01/21/18 6:36:00 ECOLOGICAL MODELER, Stop date: 01/21/18 6:36:00 ECOLOGICAL MODELER Inactive 01/21/2018 [facility] Sodium Chloride 0.9% (Bolus) IV 1,000 mL, Infuse Over: 1 hr, Route: IV, ONCE, Priority: STAT, Dosing Weight 59.091 kg, Start date: 01/21/18 6:36:00 ECOLOGICAL MODELER, Stop date: 01/21/18 6:36:00 ECOLOGICAL MODELER Inactive 01/21/2018 [facility] Morphine 4 mg, Route: IVP, ONCE, Dosing Weight 59.091, kg, Priority: STAT, Start date: 01/21/18 6:36:00 ECOLOGICAL MODELER, Stop date: 01/21/18 6:36:00 ECOLOGICAL MODELER Inactive 01/21/2018 [facility] LORazepam 0.5 mg oral tablet 0.5 mg=1 tab, PO, BID, PRN Anxiety, # 20 tab, 0 Refill(s) Active 01/13/2018 [facility] pantoprazole 40 MG Enteric Coated Tablet [Protonix] 40 mg=1 tab, PO, Daily, # 30 tab, 0 Refill(s), Pharmacy: [facility]/pharmacy #[id number] Active 01/13/2018 [facility] Ondansetron 4 MG Disintegrating Tablet [Zofran] 4 mg=1 tab, PO, Q6H, PRN Nausea & Vomiting, Dissolve tab under tongue, # 30 tab, 0 Refill(s), Pharmacy: [facility]/pharmacy #[id number] Active 01/13/2018 [facility] Hydromorphone 1 mg, 1 mL, Route: IVP, Drug form: SOLN, ONCE, Dosing Weight 60.909, kg, Priority: STAT, Start date: 01/10/18 13:14:00 ECOLOGICAL MODELER, Stop date: 01/10/18 13:14:00 CSTNotes: (Same as: Dilaudid) Inactive 01/10/2018 [facility] Adult Parenteral Nutrition Custom - Central (TPN) 1,850 mL 1,850 mL, Rate: 75 ml/hr, Infuse over: 24.7 hr, Dosing Weight 60.909, kg, Route: IV, Total Volume: 1,850 mL, Start Date: 01/07/18 22:00:00 ECOLOGICAL MODELER, Duration: 24 hr, Stop date: 01/08/18 21:59:00 ECOLOGICAL MODELER, Replace Every: 24.7 hr No Longer Active 01/08/2018 [facility] Adult Parenteral Nutrition Custom - Central (TPN) 1,850 mL 1,850 mL, Rate: 75 ml/hr, Infuse over: 24.7 hr, Dosing Weight 60.909, kg, Route: IV, Total Volume: 1,850 mL, Start Date: 01/06/18 22:00:00 ECOLOGICAL MODELER, Duration: 24 hr, Stop date: 01/07/18 21:59:00 ECOLOGICAL MODELER, Replace Every: 24 hrNotes: Central line only Must use 0.22 micron filter No Longer Active 01/07/2018 [facility] Adult Parenteral Nutrition Custom - Central (TPN) 1,850 mL 1,850 mL, Rate: 75 ml/hr, Infuse over: 24.7 hr, Dosing Weight 60.909, kg, Route: IV, Total Volume: 1,850 mL, Start Date: 01/05/18 22:00:00 ECOLOGICAL MODELER, Duration: 24 hr, Stop date: 01/06/18 21:59:00 ECOLOGICAL MODELER, Replace Every: 24.7 hrNotes: Central line only Must use 0.22 micron filter No Longer Active 01/06/2018 [facility] Insulin Lispro 15 unit, 0.15 mL, Route: SUB-Q, Drug form: SOLN, ONCE, Dosing Weight 60.909, kg, Start date: 01/04/18 22:20:00 ECOLOGICAL MODELER, Stop date: 01/04/18 22:20:00 CSTNotes: (Same as: Humalog ) Roll in palms of hands g ently; Do not shake `vigorously. "Single Patient Use Only " WASTE: F/P - Black; E - Municipal Trash Bin Stable for 28 days at room temperature. Expires in days from Date Inactive 01/05/2018 [facility] Lovenox 30 mg, 0.3 mL, Route: SUB-Q, Drug form: INJ, [id number], Dosing Weight 60.909, kg, For CrCl Notes: (Same as: Lovenox) No Longer Active 01/05/2018 [facility] Adult Parenteral Nutrition Custom - Central (TPN) 1,850 mL 1,850 mL, Rate: 75 ml/hr, Infuse over: 24.7 hr, Dosing Weight 60.909, kg, Route: IV, Total Volume: 1,850 mL, Start Date: 01/04/18 22:00:00 ECOLOGICAL MODELER, Duration: 24 hr, Stop date: 01/05/18 21:59:00 ECOLOGICAL MODELER, Replace Every: 24.7 hrNotes: Central line only Must use 0.22 micron filter No Longer Active 01/05/2018 [facility] insulin glargine 15 unit, 0.15 mL, Route: SUB-Q, Drug form: SOLN, Bedtime, Start date: 01/04/18 21:00:00 ECOLOGICAL MODELER, Duration: 30 day, Stop date: 02/02/18 21:00:00 CSTNotes: (Same as: Lantus) Do not hold insulin without contac ting prescriber WASTE: F/P - Black; E - Municipal Trash Bin "single patient use only" No Longer Active 01/05/2018 [facility] Levemir FlexPen 15 unit, Route: SUB-Q, Bedtime, Dosing Weight 60.909, kg, Start date: 01/04/18 21:00:00 ECOLOGICAL MODELER, Duration: 30 day, Stop date: 02/02/18 21:00:00 ECOLOGICAL MODELER No Longer Active 01/05/2018 [facility] Melatonin 3 mg, 1 tab, Route: PO, Drug form: TAB, Bedtime, Dosing Weight 60.909, kg, PRN Sleep, Start date: 01/04/18 15:50:00 ECOLOGICAL MODELER, Duration: 30 day, Stop date: 02/03/18 15:49:00 CSTNotes: (Same as: Melatonin) No Longer Active 01/04/2018 [facility] Ativan 0.5 mg, 1 tab, Route: PO, Drug form: TAB, TID, Dosing Weight 60.909, kg, PRN Anxiety, Start date: 01/04/18 15:50:00 ECOLOGICAL MODELER, Duration: 30 day, Stop date: 02/03/18 15:49:00 CSTNotes: (Same as: Ativan) No Longer Active 01/04/2018 [facility] Ambien 5 mg, 1 tab, Route: PO, Drug form: TAB, Bedtime, Dosing Weight 60.909, kg, PRN Insomnia, Start date: 01/04/18 15:24:00 ECOLOGICAL MODELER, Duration: 30 day, Stop date: 02/03/18 15:23:00 CSTNotes: (Same As: Ambien) No Longer Active 01/04/2018 [facility] Amlodipine 10 mg, 2 tab, Route: PO, Drug form: TAB, Daily, Dosing Weight 60.909, kg, Start date: 01/04/18 9:00:00 ECOLOGICAL MODELER, Duration: 30 day, Stop date: 02/02/18 9:00:00 CSTNotes: (Same as: Norvasc) No Longer Active 01/04/2018 [facility] carvedilol 6.25 mg, 2 tab, Route: PO, Drug form: TAB, BID, Dosing Weight 60.909, kg, Start date: 01/04/18 9:00:00 ECOLOGICAL MODELER, Duration: 30 day, Stop date: 02/02/18 17:00:00 CSTNotes: Give with food. (Same As: Coreg) No Longer Active 01/04/2018 [facility] Sertraline 100 mg, 1 tab, Route: PO, Drug form: TAB, Daily, Dosing Weight 60.909, kg, Start date: 01/04/18 9:00:00 ECOLOGICAL MODELER, Duration: 30 day, Stop date: 02/02/18 9:00:00 CSTNotes: (Same as: Zoloft) No Longer Active 01/04/2018 [facility] pantoprazole 40 mg, Route: IVP, Drug form: INJ, Q12H, Dosing Weight 60.909, kg, Start date: 01/04/18 9:00:00 ECOLOGICAL MODELER, Duration: 30 day, Stop date: 02/02/18 21:00:00 CSTNotes: For IV push reconstitute with 10 ml 0.9% sod ium chloride and push over 2 minutes. (Same as: Protonix) No Longer Active 01/04/2018 [facility] Octreotide 50 microgram, 0.5 mL, Route: SUB-Q, Drug form: INJ, TID, Dosing Weight 60.909, kg, Start date: 01/04/18 9:00:00 ECOLOGICAL MODELER, Duration: 30 day, Stop date: 02/02/18 17:00:00 CSTNotes: (Same As: SandoSTATIN). Ref rigerate. MEDICATION WASTE Product Size: 100 microgram Product Wasted: ___ microgram No Longer Active 01/04/2018 [facility] 24 HR Metoprolol Tartrate 25 MG Extended Release Tablet [Toprol] 25 mg, 1 tab, Route: PO, Drug form: ERTAB, Daily, Start date: 01/04/18 9:00:00 ECOLOGICAL MODELER, Duration: 30 day, Stop date: 02/02/18 9:00:00 ECOLOGICAL MODELER No Longer Active 01/04/2018 [facility] Adult Parenteral Nutrition Custom - Central (TPN) 1,370 mL 1,370 mL, Rate: 55 ml/hr, Infuse over: 24.9 hr, Dosing Weight 60.909, kg, Route: IV, Total Volume: 1,370 mL, Start Date: 01/03/18 22:00:00 ECOLOGICAL MODELER, Duration: 24 hr, Stop date: 01/04/18 21:59:00 ECOLOGICAL MODELER, Replace Every: 24.9 hr No Longer Active 01/04/2018 [facility] Lorazepam 0.25 mg, 0.5 tab, Route: PO, Drug form: TAB, BID, Dosing Weight 60.909, kg, PRN Anxiety, Start date: 01/03/18 21:39:00 ECOLOGICAL MODELER, Duration: 30 day, Stop date: 02/02/18 21:38:00 CSTNotes: (Same as: Ativan) No Longer Active 01/04/2018 [facility] octreotide 50 mcg/mL injectable solution 50 microgram, SUB-Q, TID, # 1 ml, 0 Refill(s) No Longer Active 01/04/2018 [facility] gabapentin 300 MG Oral Capsule 300 mg=1 cap, PO, Daily, 0 Refill(s) No Longer Active 01/04/2018 [facility] Furosemide 40 MG Oral Tablet [Lasix] 40 mg=1 tab, PO, Daily, # 90 tab, 0 Refill(s) Active 01/04/2018 [facility] 0.4 ML Enoxaparin sodium 100 MG/ML Prefilled Syringe [Lovenox] 40 mg, SUB-Q, Daily, # 7 ea, 0 Refill(s) No Longer Active 01/04/2018 [facility] ziprasidone 5 mg, IM, Q6H, 0 Refill(s) No Longer Active 01/04/2018 [facility] Insulin, Aspart, Human SUB-Q, TID-Before Meals, 0 Refill(s) Active 01/04/2018 [facility] Diclofenac Sodium 0.01 MG/MG Topical Gel 2 gm=, TOP, QID, 0 Refill(s) No Longer Active 01/04/2018 [facility] 1 ML Hydromorphone Hydrochloride 1 MG/ML Prefilled Syringe [Dilaudid] 1 mg=1 ml, IM, Q4H, PRN Pain, 0 Refill(s) No Longer Active 01/04/2018 [facility] LORazepam 0.5 mg oral tablet 0.25 mg=0.5 tab, PO, BID, PRN Anxiety, # 15 tab, 0 Refill(s) No Longer Active 01/04/2018 [facility] 168 HR Clonidine 0.89800 MG/HR Transdermal Patch 1 patch, TOP, qWeek, # 4 patch, 0 Refill(s) No Longer Active 01/04/2018 [facility] carvedilol 6.25 mg oral tablet 6.25 mg=1 tab, PO, BID, # 180 tab, 0 Refill(s) No Longer Active 01/04/2018 [facility] amLODIPine 10 mg oral tablet 10 mg=1 tab, PO, Daily, # 90 tab, 0 Refill(s) Active 01/04/2018 [facility] metoprolol tartrate 25 mg oral tablet 25 mg=1 tab, PO, BID, # 60 tab, 0 Refill(s) No Longer Active 01/04/2018 [facility] Lidocaine 4 %, IV, Daily, 0 Refill(s) No Longer Active 01/04/2018 [facility] Lidocaine 0.05 MG/MG Transdermal Patch TOP, Daily, 0 Refill(s) No Longer Active 01/04/2018 [facility] sertraline 100 mg oral tablet 100 mg=1 tab, PO, Daily, # 30 tab, 0 Refill(s) Active 01/04/2018 [facility] Acetaminophen 325 MG / Hydrocodone Bitartrate 10 MG Oral Tablet [[place] 10/325] 1 tab, PO, Q4H, PRN for pain, # 24 tab, 0 Refill(s) Active 01/04/2018 [facility] Albuterol 0.833 MG/ML / Ipratropium [place] 0.167 MG/ML Inhalant Solution 3 mL, INHALATION, Q6H, PRN Wheezing, # 30 ea, 1 Refill(s) Active 01/04/2018 [facility] pantoprazole 40 mg intravenous injection 40 mg, IV, Q12H, 0 Refill(s) No Longer Active 01/04/2018 [facility] Hydralazine 10 mg, IV, Q4H, PRN Hypertension, 0 Refill(s) No Longer Active 01/04/2018 [facility] Ondansetron 2 MG/ML Injectable Solution [Zofran] 4 mg=2 ml, IV, Q6H, PRN Nausea & Vomiting, # 1 ea, 0 Refill(s) No Longer Active 01/04/2018 [facility] Metoclopramide 5 mg, IV, 0 Refill(s) No Longer Active 01/04/2018 [facility] Acetaminophen 650 mg, PO, Q6H, PRN Pain 4-6/Temp > 100.4 F, 0 Refill(s) Active 01/04/2018 [facility] Tylenol 650 mg, 2 tab, Route: PO, Drug form: TAB, Q6H, Dosing Weight 60.909, kg, PRN Pain 1-3/Temp > 100.4 F, Start date: 01/03/18 14:56:00 [employer], Duration: 30 day, Stop date: 02/02/18 14:55:00 CSTNotes: Do not exceed 4 gm/day. (Same as: Tylenol) No Longer Active 01/03/2018 [facility] Adult Parenteral Nutrition Custom - Central (TPN) 1,370 mL 1,370 mL, Rate: 55 ml/hr, Infuse over: 24.9 hr, Dosing Weight 60.909, kg, Route: IV Central, Total Volume: 1,370 mL, Start Date: 01/02/18 22:00:00 [employer], Duration: 24 hr, Stop date: 01/03/18 21:59:00 [employer]OLOGICAL [employer]ER, Replace Every: 24.9 hrNotes: Central line only Must use 0.22 micron filter No Longer Active 01/03/2018 [facility] Insulin Lispro 15 unit, 0.15 mL, Route: SUB-Q, Drug form: SOLN, Sliding Scale, Dosing Weight 60.909, kg, PRN Blood Glucose Results, Start date: 01/02/18 18:41:00 [employer], Duration: 30 day, Stop date: 02/01/18 18:40:00 [employer]OLOGICAL [employer]DELER Notes: (Same as: Humalog ) Roll in palms of hands gently; Do not shake `vigorously. "Single Patient Use Only " WASTE: F/P - Black; E - Weddingful Trash Bin Stable for 28 days at room temperature. Expires in days from Date No Longer Active 01/03/2018 [facility] Dextrose 50% Syringe 25 gm, 50 mL, Route: IVP, Drug Form: INJ, Dosing Weight 60.909, kg, PRN, PRN Blood Glucose Results, Start date: 01/02/18 18:41:00 [employer], Duration: 30 day, Stop date: 02/01/18 18:40:00 [employer]ER No Longer Active 01/03/2018 [facility] Glucagon 1 mg, Route: IM, Drug form: PDR/INJ, PRN, Dosing Weight 60.909, kg, PRN Blood Glucose Results, Start date: 01/02/18 18:41:00 [employer], Duration: 30 day, Stop date: 02/01/18 18:40:00 [employer]ICAL [employer]ER No Longer Active 01/03/2018 [facility] Insulin Lispro 5 unit, 0.05 mL, Route: SUB-Q, Drug form: SOLN, ONCE, Dosing Weight 60.909, kg, Start date: 01/02/18 4:18:00 ECOLOGICAL [employer]DELER, Stop date: 01/02/18 4:18:00 CSTNotes: (Same as: Humalog ) Roll in palms of hands gent ly; Do not shake `vigorously. "Single Patient Use Only " WASTE: F/P - Black; E - Municipal Trash Bin Stable for 28 days at room temperature. Expires in days from Date Inactive 01/02/2018 [facility] heparin 5,000 unit, 1 mL, Route: SUB-Q, Drug form: INJ, Q12H, Dosing Weight 60.909, kg, Start date: 01/01/18 21:00:00 [employer], Duration: 30 day, Stop date: 01/31/18 9:00:00 CSTNotes: porcine heparin No Longer Active 01/02/2018 [facility] Clonidine Hydrochloride 0.1 MG Oral Tablet 0.1 mg, 1 tab, Route: PO, Drug form: TAB, Q8H, Dosing Weight 60.909, kg, PRN Hypertension, Start date: 01/01/18 14:49:00 [employer]ICAL [employer], Duration: 30 day, Stop date: 01/31/18 14:48:00 [employer]OLOGICAL MODELER, SBP >160Notes: (Same As: Catapres) No Longer Active 01/01/2018 [facility] Zofran 4 mg, 2 mL, Route: IVP, Drug form: INJ, Q8H, Dosing Weight 60.909, kg, PRN as needed for nausea/vomiting, Priority: STAT, Start date: 01/01/18 14:49:00 [employer]ICAL [employer]DELER, Duration: 30 day, Stop date: 01/31/18 14:48:00 CSTNotes: (Same as: Zofran) MEDICATION WASTE Product Size: 4 mg Product Wasted: ___ mg No Longer Active 01/01/2018 [facility] Insulin Lispro 4 unit, 0.04 mL, Route: SUB-Q, Drug form: SOLN, Bedtime, Dosing Weight 60.909, kg, PRN Blood Glucose Results, Start date: 01/01/18 14:47:00 [employer]ICAL [employer], Duration: 30 day, Stop date: 01/31/18 14:46:00 CSTNotes: (Same as: Humalog ) Roll in palms of hands gently; Do not shake `vigorously. "Single Patient Use Only " WASTE: F/P - Black; E - Municipal Trash Bin Stable for 28 days at room temperature. Expires in days from Date No Longer Active 01/01/2018 [facility] Glucagon 1 mg, Route: IM, Drug form: PDR/INJ, PRN, Dosing Weight 60.909, kg, PRN Blood Glucose Results, Start date: 01/01/18 14:47:00 [employer]ICAL [employer]ER, Duration: 30 day, Stop date: 01/31/18 14:46:00 [employer]OLOGICAL [employer]ER No Longer Active 01/01/2018 [facility] Dextrose 50% Syringe 12.5 gm, 25 mL, Route: IVP, Drug Form: INJ, Dosing Weight 60.909, kg, PRN, PRN Blood Glucose Results, Start date: 01/01/18 14:47:00 [employer]OLOGICAL [employer]DELER, Duration: 30 day, Stop date: 01/31/18 14:46:00 [employer]OLOGICAL [employer]ER No Longer Active 01/01/2018 [facility] sodium bicarbonate 8.4% additive 75 mEq + D5W 1/2NS 1,000 mL 1,000 mL, Rate: 125 ml/hr, Infuse over: 8.6 hr, Route: IV, Dosing Weight 60.909 kg, Total Volume: 1,075, Start date: 01/01/18 12:45:00 ECOLOGICAL MODELER, Duration: 30 day, Stop date: 01/31/18 12:44:00 ECOLOGICAL MODELER, 1.6, x4Wliew: (sodium bicarb 8.4% (1 mEq/ml) 50 ml VL) No Longer Active 01/01/2018 [facility] NS 500 mL 500 mL, Rate: 1,000 ml/hr, Infuse over: 0.5 hr, Route: IV, Dosing Weight 60.909 kg, Total Volume: 500, Start date: 01/01/18 12:45:00 [employer]OLOGICAL [employer]DELER, Duration: 1 doses or times, Stop date: 01/01/18 13:14:00 [employer]OLOGICAL MODELER, Bolus Dose, 1.6, m2 Inactive 01/01/2018 [facility] Dilaudid 1 mg, 1 mL, Route: IV, Drug form: SOLN, Q12H, Dosing Weight 60.909, kg, PRN Dressing Change, Start date: 01/01/18 10:26:00 [employer]OLOGICAL MODELER, Stop date: 01/31/18 9:26:00 CSTNotes: (Same as: Dilaudid) No Longer Active 01/01/2018 [facility] Acetaminophen 325 MG / Hydrocodone Bitartrate 10 MG Oral Tablet [[place] 10/325] 1 tab, Route: PO, Drug Form: TAB, Dosing Weight 60.909, kg, Q6H, PRN Pain Score 4-6, Start date: 01/01/18 10:26:00 [employer]OLOGICAL [employer]DELER, Duration: 30 day, Stop date: 01/31/18 10:25:00 CSTNotes: Do not exceed 4gm/day of acetaminophen. (Same as: [place] 325/10) No Longer Active 01/01/2018 [facility] Dilaudid 1 mg, 1 mL, Route: IV, Drug form: SOLN, Q6H, Dosing Weight 60.909, kg, PRN Pain Score 4-6, Start date: 01/01/18 8:31:00 ECOLOGICAL MODELER, Stop date: 01/31/18 11:00:00 CSTNotes: (Same as: Dilaudid) Inactive 01/01/2018 [facility] Allergies, Adverse Reactions, Alerts Substance Category Reaction Severity Reaction type Status Date Reported Comments Source ibuprofen Assertion Drug allergy Active [facility] Motrin Assertion Drug allergy Active [facility] Immunizations No Data Provided for This Section Results Order Name Results Value Reference Range Date Interpretation Comments Source ELECTROLYTES AGAP 11.2 10.0 - 20.0 03/05/2018 [facility] ELECTROLYTES Sodium Lvl 134 135 - 145 03/05/2018 [facility] ELECTROLYTES Potassium Lvl 3.2 3.5 - 5.1 03/05/2018 [facility] ELECTROLYTES Chloride Lvl 93 95 - 109 03/05/2018 [facility] ELECTROLYTES eGFR 23 03/05/2018 Result Comment: [...] should be multiplied by the estimated BMI. [facility] ELECTROLYTES Calcium Lvl 7.8 8.5 - 10.5 03/05/2018 [facility] ELECTROLYTES Creatinine Lvl 2.18 0.50 - 1.40 03/05/2018 [facility] ELECTROLYTES CO2 33 24 - 32 03/05/2018 [facility] ELECTROLYTES Glucose Lvl 117 70 - 99 03/05/2018 [facility] ELECTROLYTES BUN 41 7 - 22 03/05/2018 [facility] HEMATOLOGY MCH 29.8 27.0 - 31.0 03/05/2018 [facility] HEMATOLOGY MCV 90.3 80.0 - 98.0 03/05/2018 [facility] HEMATOLOGY Hct 29.1 36.0 - 48.0 03/05/[address] [facility] MPV 6.8 7.4 - 10.4 03/05/2018 [facility] HEMATOLOGY Platelet 295 133 - 450 03/05/2018 [facility] HEMATOLOGY RDW 16.3 11.5 - 14.5 03/05/2018 [facility] HEMATOLOGY RBC 3.23 4.20 - 5.40 03/05/2018 [facility] HEMATOLOGY WBC 8.5 3.7 - 10.4 03/05/[address] [facility] Hgb 9.6 12.0 - 16.0 03/05/[address] [facility] MCHC 33.0 32.0 - 36.0 03/05/2018 [facility] CHEM PANEL Glucose Lvl 150 70 - 99 03/04/2018 [facility] CHEM PANEL BUN 50 7 - 22 03/04/2018 [facility] CHEM PANEL Calcium Lvl 7.5 8.5 - 10.5 03/04/2018 [facility] CHEM PANEL Chloride Lvl 93 95 - 109 03/04/2018 [facility] CHEM PANEL CO2 30 24 - 32 03/04/2018 [facility] CHEM PANEL AGAP 15.7 10.0 - 20.0 03/04/2018 [facility] CHEM PANEL eGFR 20 03/04/2018 Result [...] Sodium Lvl 135 135 - 145 03/04/2018 [facility] CHEM PANEL Potassium Lvl 3.7 3.5 - 5.1 03/04/2018 [facility] CHEM PANEL Creatinine Lvl 2.41 0.50 - 1.40 03/04/2018 [facility] CHEM PANEL eGFR 14 03/03/2018 Result [...] Glucose Lvl 211 70 - 99 03/03/2018 [facility] CHEM PANEL Creatinine Lvl 3.34 0.50 - 1.40 03/03/2018 [facility]M PANEL Potassium Lvl 3.5 3.5 - 5.1 03/03/2018 [facility] CHEM PANEL Sodium Lvl 134 135 - 145 03/03/2018 [facility] CHEM PANEL Chloride Lvl 88 95 - 109 03/03/2018 [facility] CHEM PANEL Calcium Lvl 8.3 8.5 - 10.5 03/03/2018 [facility] CHEM PANEL CO2 31 24 - 32 03/03/2018 [facility] CHEM PANEL AGAP 18.5 10.0 - 20.0 03/03/2018 [facility] CHEM PANEL Magnesium Lvl 2.8 1.8 - 2.4 03/01/2018 [facility] CHEM PANEL Phosphorus 3.5 2.5 - 4.5 03/01/2018 [facility] PARATHYROID PROFILE Ca Ion WB 1.15 1.05 - 1.25 03/01/2018 [facility] PARATHYROID PROFILE Ca Norm WB 1.15 1.05 - 1.25 03/01/2018 [facility] CHEM PANEL Phosphorus 4.2 2.5 - 4.5 02/28/2018 [facility] CHEM PANEL Magnesium Lvl 0.5 1.8 - 2.4 02/28/2018 Result Comment: Critical Result(s) called to Pushpa Hester at 02/28/2018 10:16 by DMF. Read back OK. [facility] CHEM PANEL Phosphorus 2.1 2.5 - 4.5 02/28/2018 [facility] CHEM PANEL Magnesium Lvl <0.3 1.8 - 2.4 02/28/2018 Result Comment: Critical Result(s) called to RN. Milly Thao at 02/28/2018 05:40 by drt. Read back OK. [facility] CHEM PANEL Vitamin D, 25-OH, Total 24.8 30.0 - 100.0 02/27/2018 [facility] PARATHYROID PROFILE PTH Intact 50.3 18.4 - 80.1 02/27/2018 [facility] HEMATOLOGY Lymphocytes # 2.3 1.0 - 5.5 02/27/2018 [facility] HEMATOLOGY Basophils # 0.1 0.0 - 0.2 02/27/2018 [facility] HEMATOLOGY Monocytes # 1.0 0.0 - 0.8 02/27/2018 [facility] HEMATOLOGY Eosinophils # 0.2 0.0 - 0.5 02/27/2018 [facility] HEMATOLOGY Neutrophils # 5.2 1.5 - 8.1 02/27/2018 [facility] HEMATOLOGY Basophils 1.0 0.0 - 1.0 02/27/2018 [facility] HEMATOLOGY Eosinophils 2.0 0.0 - 4.0 02/27/2018 [facility] HEMATOLOGY Lymphocytes 26.5 20.0 - 40.0 02/27/2018 [facility] HEMATOLOGY Monocytes 11.6 2.0 - 12.0 02/27/2018 [facility] HEMATOLOGY Segs 58.9 45.0 - 75.0 02/27/2018 [facility] HEMATOLOGY MCHC 32.6 32.0 - 36.0 02/27/2018 [facility] HEMATOLOGY MPV 6.9 7.4 - 10.4 02/27/2018 [facility] HEMATOLOGY Platelet 382 133 - 450 02/27/2018 [facility] HEMATOLOGY RDW 16.5 11.5 - 14.5 02/27/2018 [facility] HEMATOLOGY MCH 29.5 27.0 - 31.0 02/27/2018 [facility] HEMATOLOGY MCV 90.4 80.0 - 98.0 02/27/2018 [facility] HEMATOLOGY RBC 3.24 4.20 - 5.40 02/27/2018 [facility] HEMATOLOGY WBC 8.8 3.7 - 10.4 02/27/2018 [facility] HEMATOLOGY Hct 29.3 36.0 - 48.0 02/27/2018 [facility] HEMATOLOGY Hgb 9.6 12.0 - 16.0 02/27/2018 [facility] HEMATOLOGY MCV 88.6 80.0 - 98.0 02/26/2018 [facility] HEMATOLOGY MCH 29.8 27.0 - 31.0 02/26/2018 [facility] HEMATOLOGY MCHC 33.7 32.0 - 36.0 02/26/2018 [facility] HEMATOLOGY MPV 6.5 7.4 - 10.4 02/26/2018 [facility] HEMATOLOGY Hct 25.7 36.0 - 48.0 02/26/2018 [facility] HEMATOLOGY Platelet 432 133 - 450 02/26/2018 [facility] HEMATOLOGY RDW 16.1 11.5 - 14.5 02/26/2018 [facility] HEMATOLOGY WBC 9.9 3.7 - 10.4 02/26/2018 [facility] HEMATOLOGY RBC 2.91 4.20 - 5.40 02/26/2018 [facility] HEMATOLOGY Hgb 8.7 12.0 - 16.0 02/26/2018 [facility] LIPIDS Chol 106 <=199 mg/dL 02/26/2018 [facility] LIPIDS Trig 220 <=149 mg/dL 02/26/2018 [facility] LIPIDS HDL 34 >=61 mg/dL 02/26/2018 [facility] LIPIDS LDL (Calculated) 28 <=99 mg/dL 02/26/2018 [facility] LIPIDS VLDL 44 02/26/2018 [facility] LIPIDS CHD Risk 3.12 3.90 - 5.80 02/26/2018 [facility] SPECIAL CHEMISTRY Hgb A1C 6.6 <=5.6 % 02/26/2018 [facility] URINE AND STOOL UA RBC 132 0 - 2 02/26/2018 [facility] URINE AND STOOL UA Sq Epi Many /LPF Few /LPF 02/26/2018 [facility] URINE AND STOOL UA WBC >182 0 - 5 02/26/2018 [facility] URINE AND STOOL UA Bacteria Occasional /HPF None Seen /HPF 02/26/2018 [facility] URINE AND STOOL UA Mucus Few /LPF None Seen /LPF 02/26/2018 [facility] URINE AND STOOL UA Nitrite Negative (02/25/18 11:35 PM) Negative 02/26/2018 [facility] URINE AND STOOL UA Leuk Est Small *ABN* (02/25/18 11:35 PM) Negative 02/26/2018 [facility] URINE AND STOOL UA Urobilinogen 0.2 0.1 - 1.0 02/26/2018 [facility] URINE AND STOOL UA Protein 100 mg/dL Negative mg/dL 02/26/2018 [facility] URINE AND STOOL UA Color Yellow *NA* (02/25/18 11:35 PM) Yellow 02/26/2018 [facility] URINE AND STOOL UA Turbidity Cloudy *ABN* (02/25/18 11:35 PM) Clear 02/26/2018 [facility] URINE AND STOOL UA pH 5.5 5.0 - 8.0 02/26/2018 [facility] URINE AND STOOL UA Spec Grav >=1.030 *ABN* (02/25/18 11:35 PM) <=1.030 02/26/2018 [facility] URINE AND STOOL UA Blood Large *ABN* (02/25/18 11:35 PM) Negative 02/26/2018 [facility] URINE AND STOOL UA Glucose 100 mg/dL Negative mg/dL 02/26/2018 [facility] URINE AND STOOL UA Bili Moderate *ABN* (02/25/18 11:35 PM) Negative 02/26/2018 [facility] URINE AND STOOL UA Ketones Trace *ABN* (02/25/18 11:35 PM) Negative 02/26/2018 [facility] URINE CHEM U Creatinine 213.00 02/26/2018 [facility] URINE CHEM U Sodium 6 02/26/2018 [facility] Culture: Urine Specimen contains 3 or more potential pathogens; recommend correlation with urinalysis; if catheterized specimen recommend removal and recollection. If clinical situation warrants please call the laboratory for further testing. [place] [facility] [phone]. 02/26/2018 [facility] HEMATOLOGY Monocytes # 0.9 0.0 - 0.8 02/26/2018 [facility] HEMATOLOGY Basophils # 0.1 0.0 - 0.2 02/26/2018 [facility] HEMATOLOGY Lymphocytes # 1.7 1.0 - 5.5 02/26/2018 [facility] HEMATOLOGY Neutrophils # 10.8 1.5 - 8.1 02/26/2018 [facility] HEMATOLOGY Basophils 0.6 0.0 - 1.0 02/26/2018 [facility] HEMATOLOGY RBC Morph Normal (02/25/18 6:29 PM) 02/26/2018 [facility] HEMATOLOGY Plt Morph Normal (02/25/18 6:29 PM) 02/26/2018 [facility] HEMATOLOGY Segs 80.6 45.0 - 75.0 02/26/[address] [facility] Monocytes 6.4 2.0 - 12.0 02/26/2018 [facility] HEMATOLOGY Eosinophils 0.1 0.0 - 4.0 02/26/[address] [facility] Lymphocytes 12.3 20.0 - 40.0 02/26/2018 [facility] CHEM PANEL A/G Ratio 0.5 0.7 - 1.6 02/25/2018 [facility] CHEM PANEL Albumin Lvl 2.1 3.5 - 5.0 02/25/2018 [facility] CHEM PANEL Globulin 4.5 2.7 - 4.2 02/25/2018 [facility] CHEM PANEL Total Protein 6.6 6.4 - 8.4 02/25/2018 [facility] CHEM PANEL AST 22 0 - 37 02/25/2018 [facility] CHEM PANEL Alk Phos 70 39 - 136 02/25/2018 [facility] CHEM PANEL Bili Total 0.3 0.2 - 1.3 02/25/2018 [facility] CHEM PANEL ALT 11 0 - 65 02/25/2018 [facility] CHEM PANEL B/C Ratio 20 6 - 25 02/25/2018 [facility] CHEM PANEL Lactic Acid Lvl 1.1 0.5 - 2.2 02/25/2018 [facility] CHEM PANEL Procalcitonin Lvl 0.30 0.00 - 0.10 02/25/2018 [facility] URINE AND STOOL UA Protein 100 mg/dL Negative mg/dL 02/25/2018 [facility] URINE AND STOOL UA Glucose Negative (02/25/18 3:19 PM) Negative 02/25/2018 [facility] URINE AND STOOL UA Bili Small *ABN* (02/25/18 3:19 PM) Negative 02/25/2018 [facility] URINE AND STOOL UA Urobilinogen 0.2 0.1 - 1.0 02/25/2018 [facility] URINE AND STOOL UA Ketones Trace [...] UA pH 5.5 5.0 - 8.0 02/25/2018 [facility] URINE AND STOOL UA Bacteria Moderate /HPF None Seen /HPF 02/25/2018 [facility] URINE AND STOOL UA Mucus Few /LPF None Seen /LPF 02/25/2018 [facility] URINE AND STOOL UA WBC >182 /HPF 0 - 5 02/25/2018 [facility] URINE AND STOOL UA Leuk Est Moderate *ABN* (02/25/18 3:19 PM) Negative 02/25/2018 [facility] URINE AND STOOL UA Sq Epi Occasional /LPF Few /LPF 02/25/2018 [facility] URINE AND STOOL UA Nitrite Negative (02/25/18 3:19 PM) Negative 02/25/2018 [facility] URINE AND STOOL UA RBC 3-5 /HPF 0 - 2 02/25/2018 [facility] URINE AND STOOL UA Color See Note 6 (02/25/18 3:19 PM) Yellow 02/25/2018 Result Comment: Urine color is white(mucus)on 02/25/2018 16:39 by Jerome. [facility] CHEM PANEL Lipase Lvl 78 73 - 393 02/25/2018 [facility] CHEM PANEL Amylase Lvl 24 25 - 115 02/25/2018 [facility] HEMATOLOGY PTT 39.4 22.9 - 35.8 02/25/2018 [facility] HEMATOLOGY INR 1.20 0.85 - 1.17 02/25/2018 [facility] HEMATOLOGY PT 15.0 12.0 - 14.7 02/25/2018 [facility] HEMATOLOGY Basophils # 0.1 0.0 - 0.2 02/25/2018 [facility] HEMATOLOGY Lymphocytes # 1.6 1.0 - 5.5 02/25/2018 [facility] HEMATOLOGY Eosinophils # 0.1 0.0 - 0.5 02/25/2018 [facility] HEMATOLOGY Monocytes # 1.2 0.0 - 0.8 02/25/2018 [facility] HEMATOLOGY Neutrophils # 13.7 1.5 - 8.1 02/25/2018 [facility] HEMATOLOGY Basophils 0.7 0.0 - 1.0 02/25/2018 [facility] HEMATOLOGY Eosinophils 0.4 0.0 - 4.0 02/25/2018 [facility] HEMATOLOGY Lymphocytes 9.4 20.0 - 40.0 02/25/2018 [facility] HEMATOLOGY Segs 82.5 45.0 - 75.0 02/25/2018 [facility] HEMATOLOGY Monocytes 7.0 2.0 - 12.0 02/25/2018 [facility] CHEM PANEL AST 21 0 - 37 02/25/2018 [facility] CHEM PANEL Alk Phos 87 39 - 136 02/25/2018 [facility] CHEM PANEL Bili Total 0.4 0.2 - 1.3 02/25/2018 [facility] CHEM PANEL ALT 13 0 - 65 02/25/2018 [facility] CHEM PANEL A/G Ratio 0.5 0.7 - 1.6 02/25/2018 [facility] CHEM PANEL B/C Ratio 17 6 - 25 02/25/2018 [facility] CHEM PANEL Total Protein 8.4 6.4 - 8.4 02/25/2018 [facility] CHEM PANEL Albumin Lvl 2.8 3.5 - 5.0 02/25/2018 [facility] CHEM PANEL Globulin 5.6 2.7 - 4.2 02/25/2018 [facility] ELECTROLYTES AGAP 15.6 10.0 - 20.0 02/13/2018 [facility] ELECTROLYTES Calcium Lvl 6.9 8.5 - 10.5 02/13/2018 Result Comment: Critical Result(s) called to Ilana Aguayo at 02/13/2018 07:53 by DMF. Read back OK. [facility] ELECTROLYTES Creatinine Lvl 1.10 0.50 - 1.40 02/13/2018 [facility] ELECTROLYTES Sodium Lvl 144 135 - 145 02/13/2018 [facility] ELECTROLYTES Potassium Lvl 3.6 3.5 - 5.1 02/13/2018 [facility] ELECTROLYTES CO2 19 24 - 32 02/13/2018 [facility] ELECTROLYTES Chloride Lvl 113 95 - 109 02/13/2018 [facility] ELECTROLYTES Glucose Lvl 299 70 - 99 02/13/2018 [facility] ELECTROLYTES BUN 11 7 - 22 02/13/2018 [facility] ELECTROLYTES eGFR 52 02/13/2018 Result Comment: [...] should be multiplied by the estimated BMI. [facility] CHEM PANEL Phosphorus 2.9 2.5 - 4.5 02/11/2018 [facility] CHEM PANEL eGFR 61 02/11/2018 Result [...] should be multiplied by the estimated BMI. [facility] CHEM PANEL Chloride Lvl 118 95 - 109 02/11/2018 [facility] CHEM PANEL Potassium Lvl 3.6 3.5 - 5.1 02/11/2018 [facility] CHEM PANEL AGAP 12.6 10.0 - 20.0 02/11/2018 [facility] CHEM PANEL CO2 15 24 - 32 02/11/2018 [facility] CHEM PANEL Calcium Lvl 6.5 8.5 - 10.5 02/11/2018 Result Comment: Critical Result(s) called to kelly mccloud at 02/11/2018 07:06 by EFA. Read back OK. [facility] CHEM PANEL Glucose Lvl 80 70 - 99 02/11/2018 [facility] CHEM PANEL Sodium Lvl 142 135 - 145 02/11/2018 [facility] CHEM PANEL Creatinine Lvl 0.96 0.50 - 1.40 02/11/2018 [facility] CHEM PANEL BUN 8 7 - 22 02/11/2018 [facility] HEMATOLOGY Monocytes # 0.7 0.0 - 0.8 02/11/2018 [facility] HEMATOLOGY Eosinophils # 0.2 0.0 - 0.5 02/11/2018 [facility] HEMATOLOGY Segs 56.2 45.0 - 75.0 02/11/2018 [facility] HEMATOLOGY Lymphocytes 30.3 20.0 - 40.0 02/11/2018 [facility] HEMATOLOGY Monocytes 10.1 2.0 - 12.0 02/11/2018 [facility] HEMATOLOGY Eosinophils 2.9 0.0 - 4.0 02/11/2018 [facility] HEMATOLOGY Neutrophils # 3.9 1.5 - 8.1 02/11/2018 [facility] HEMATOLOGY Basophils 0.5 0.0 - 1.0 02/11/2018 [facility] HEMATOLOGY Lymphocytes # 2.1 1.0 - 5.5 02/11/2018 [facility] HEMATOLOGY MPV 7.0 7.4 - 10.4 02/11/2018 [facility] HEMATOLOGY MCHC 33.0 32.0 - 36.0 02/11/2018 [facility] HEMATOLOGY RDW 15.4 11.5 - 14.5 02/11/2018 [facility] HEMATOLOGY Platelet 264 133 - 450 02/11/2018 [facility] HEMATOLOGY WBC 7.0 3.7 - 10.4 02/11/2018 [facility] HEMATOLOGY RBC 2.55 4.20 - 5.40 02/11/2018 [facility] HEMATOLOGY Hgb 7.5 12.0 - 16.0 02/11/2018 [facility] HEMATOLOGY Hct 22.6 36.0 - 48.0 02/11/2018 [facility] HEMATOLOGY MCV 88.6 80.0 - 98.0 02/11/2018 [facility] HEMATOLOGY MCH 29.3 27.0 - 31.0 02/11/2018 [facility] URINE AND STOOL UA pH 6.0 5.0 - 8.0 02/08/2018 [facility] URINE AND STOOL UA Urobilinogen <=1.0 mg/dL 0.1 - 1.0 02/08/2018 [facility] URINE AND STOOL UA Spec Grav 1.017 <=1.030 02/08/2018 [facility] URINE AND STOOL UA Turbidity Marked *ABN* (02/07/18 10:19 PM) Clear 02/08/2018 [facility] URINE AND STOOL UA Color Yellow *NA* (02/07/18 10:19 PM) Yellow 02/08/2018 [facility] URINE AND STOOL UA Blood Negative (02/07/18 10:19 PM) Negative 02/08/2018 [facility] URINE AND STOOL UA Glucose 50 mg/dL Negative mg/dL 02/08/2018 [facility] URINE AND STOOL UA Ketones Negative *NA* (02/07/18 10:19 PM) Negative 02/08/2018 [facility] URINE AND STOOL UA Protein >=300 mg/dL Negative mg/dL 02/08/2018 [facility] URINE AND STOOL UA Bili Negative *NA* (02/07/18 10:19 PM) Negative 02/08/2018 [facility] URINE AND STOOL UA Leuk Est Large *ABN* (02/07/18 10:19 PM) Negative 02/08/2018 [facility] URINE AND STOOL Micro? Performed (02/07/18 10:19 PM) 02/08/2018 [facility] URINE AND STOOL UA Nitrite Negative (02/07/18 10:19 PM) Negative 02/08/2018 [facility] URINE AND STOOL UA Sq Epi Occasional /LPF Few /LPF 02/08/2018 [facility] URINE AND STOOL UA Bacteria Few /HPF None Seen /HPF 02/08/2018 [facility] URINE AND STOOL UA RBC 10 0 - 2 02/08/2018 [facility] URINE AND STOOL UA WBC >182 0 - 5 02/08/2018 [facility] Culture: Urine No Growth 02/08/2018 [facility] CHEM PANEL eGFR 38 02/05/2018 Result [...] should be multiplied by the estimated BMI. [facility] CHEM PANEL BUN 13 7 - 22 02/05/2018 [facility] CHEM PANEL Creatinine Lvl 1.42 0.50 - 1.40 02/05/2018 [facility] CHEM PANEL Glucose Lvl 112 70 - 99 02/05/2018 [facility] CHEM PANEL Calcium Lvl 7.6 8.5 - 10.5 02/05/2018 [facility] CHEM PANEL Sodium Lvl 140 135 - 145 02/05/2018 [facility] CHEM PANEL Potassium Lvl 3.6 3.5 - 5.1 02/05/2018 [facility] CHEM PANEL AGAP 13.6 10.0 - 20.0 02/05/2018 [facility] CHEM PANEL CO2 28 24 - 32 02/05/2018 [facility] CHEM PANEL Chloride Lvl 102 95 - 109 02/05/2018 [facility] HEMATOLOGY WBC 7.6 3.7 - 10.4 02/04/2018 [facility] HEMATOLOGY RBC 2.76 4.20 - 5.40 02/04/[address] [facility] MCHC 33.5 32.0 - 36.0 02/04/[address] [facility] MCH 29.4 27.0 - 31.0 02/04/[address] [facility] Hct 24.2 36.0 - 48.0 02/04/2018 [facility] HEMATOLOGY Hgb 8.1 12.0 - 16.0 02/04/[address] [facility] MCV 87.8 80.0 - 98.0 02/04/[address] [facility] RDW 14.8 11.5 - 14.5 02/04/[address] [facility] Platelet 355 133 - 450 02/04/[address] [facility] MPV 6.9 7.4 - 10.4 02/04/[address] [facility] Lymphocytes # 1.7 1.0 - 5.5 02/04/[address] [facility] Monocytes # 0.5 0.0 - 0.8 02/04/2018 [facility] HEMATOLOGY Basophils 0.6 0.0 - 1.0 02/04/2018 [facility] HEMATOLOGY Neutrophils # 5.2 1.5 - 8.1 02/04/2018 [facility] HEMATOLOGY Lymphocytes 22.7 20.0 - 40.0 02/04/2018 [facility] HEMATOLOGY Monocytes 6.9 2.0 - 12.0 02/04/2018 [facility] HEMATOLOGY Segs 68.6 45.0 - 75.0 02/04/2018 [facility] HEMATOLOGY Eosinophils 1.2 0.0 - 4.0 02/04/2018 [facility] HEMATOLOGY Eosinophils # 0.1 0.0 - 0.5 02/04/2018 [facility] URINE CHEM U Creatinine 114.00 02/01/2018 [facility] URINE CHEM U Sodium 10 02/01/2018 [facility] HEMATOLOGY MPV 7.8 7.4 - 10.4 02/01/2018 [facility] HEMATOLOGY Platelet 303 133 - 450 02/01/2018 [facility] HEMATOLOGY Hgb 8.1 12.0 - 16.0 02/01/2018 [facility] HEMATOLOGY Hct 24.4 36.0 - 48.0 02/01/2018 [facility] HEMATOLOGY WBC 11.4 3.7 - 10.4 02/01/2018 [facility] HEMATOLOGY RBC 2.72 4.20 - 5.40 02/01/2018 [facility] HEMATOLOGY MCV 89.7 80.0 - 98.0 02/01/2018 [facility] HEMATOLOGY MCH 29.8 27.0 - 31.0 02/01/2018 [facility] HEMATOLOGY MCHC 33.3 32.0 - 36.0 02/01/2018 [facility] HEMATOLOGY RDW 15.5 11.5 - 14.5 02/01/2018 [facility] HEMATOLOGY Basophils # 0.1 0.0 - 0.2 02/01/2018 [facility] HEMATOLOGY Eosinophils # 0.2 0.0 - 0.5 02/01/2018 [facility] HEMATOLOGY Neutrophils # 8.2 1.5 - 8.1 02/01/2018 [facility] HEMATOLOGY Lymphocytes # 2.1 1.0 - 5.5 02/01/2018 [facility] HEMATOLOGY Monocytes # 0.8 0.0 - 0.8 02/01/2018 [facility] HEMATOLOGY Basophils 1.2 0.0 - 1.0 02/01/2018 [facility] HEMATOLOGY Eosinophils 1.5 0.0 - 4.0 02/01/2018 [facility] HEMATOLOGY Lymphocytes 18.5 20.0 - 40.0 02/01/2018 [facility] HEMATOLOGY Monocytes 6.7 2.0 - 12.0 02/01/2018 [facility] HEMATOLOGY Segs 72.1 45.0 - 75.0 02/01/2018 [facility] CHEM PANEL Magnesium Lvl 2.5 1.8 - 2.4 01/27/2018 [facility] CHEM PANEL Phosphorus 3.4 2.5 - 4.5 01/27/2018 [facility] CHEM PANEL Magnesium Lvl 1.5 1.8 - 2.4 01/26/2018 [facility] CHEM PANEL Phosphorus 2.1 2.5 - 4.5 01/26/2018 [facility] CHEM PANEL Magnesium Lvl 1.6 1.8 - 2.4 01/25/2018 [facility] LIPIDS Trig 361 <=149 mg/dL 01/25/2018 [facility] HEMATOLOGY Basophils # 0.1 0.0 - 0.2 01/24/2018 [facility] HEMATOLOGY Plt Morph Normal (01/23/18 6:15 AM) 01/23/2018 [facility] HEMATOLOGY RBC Morph Normal (01/23/18 6:15 AM) 01/23/2018 [facility] HEMATOLOGY INR 1.16 0.85 - 1.17 01/22/2018 [facility] HEMATOLOGY PT 14.6 12.0 - 14.7 01/22/2018 [facility] HEMATOLOGY PTT 29.1 22.9 - 35.8 01/22/2018 [facility] CHEM PANEL Lipase Lvl 345 73 - 393 01/22/2018 [facility] CHEM PANEL Alk Phos 79 39 - 136 01/22/2018 [facility] CHEM PANEL ALT 11 0 - 65 01/22/2018 [facility] CHEM PANEL Bili Total 0.6 0.2 - 1.3 01/22/2018 [facility] CHEM PANEL AST 13 0 - 37 01/22/2018 [facility] CHEM PANEL A/G Ratio 0.6 0.7 - 1.6 01/22/2018 [facility] CHEM PANEL B/C Ratio 17 6 - 25 01/22/2018 [facility] CHEM PANEL Albumin Lvl 2.7 3.5 - 5.0 01/22/2018 [facility] CHEM PANEL Total Protein 7.4 6.4 - 8.4 01/22/2018 [facility] CHEM PANEL Globulin 4.7 2.7 - 4.2 01/22/2018 [facility] URINE AND STOOL UA Nitrite Negative (01/21/18 3:14 PM) Negative 01/21/2018 [facility] URINE AND STOOL UA Urobilinogen <=1.0 mg/dL 0.1 - 1.0 01/21/2018 [facility] URINE AND STOOL UA Blood Small *ABN* (01/21/18 3:14 PM) Negative 01/21/2018 [facility] URINE AND STOOL UA Protein 100 mg/dL Negative mg/dL 01/21/2018 [facility] URINE AND STOOL UA Glucose 150 mg/dL Negative mg/dL 01/21/2018 [facility] URINE AND STOOL Micro? Performed (01/21/18 3:14 PM) 01/21/2018 [facility] URINE AND STOOL UA Leuk Est Large *ABN* (01/21/18 3:14 PM) Negative 01/21/2018 [facility] URINE AND STOOL UA Color Maggy 01/21/2018 [facility] URINE AND STOOL UA Bili Negative *NA* (01/21/18 3:14 PM) Negative 01/21/2018 [facility] URINE AND STOOL UA Ketones Trace *ABN* (01/21/18 3:14 PM) Negative 01/21/2018 [facility] URINE AND STOOL UA pH 5.0 5.0 - 8.0 01/21/2018 [facility] URINE AND STOOL UA Spec Grav 1.013 <=1.030 01/21/2018 [facility] URINE AND STOOL UA Turbidity Marked *ABN* (01/21/18 3:14 PM) Clear 01/21/2018 [facility] URINE AND STOOL UA Mucus Few /LPF None Seen /LPF 01/21/2018 [facility] URINE AND STOOL UA Chauvin Yeast Many /HPF None Seen /HPF 01/21/2018 [facility] URINE AND STOOL UA RBC 52 0 - 2 01/21/2018 [facility] URINE AND STOOL UA WBC >182 0 - 5 01/21/2018 [facility] URINE AND STOOL UA Sq Epi Occasional /LPF Few /LPF 01/21/2018 [facility] URINE CHEM U Creatinine 114.00 01/21/2018 [facility] URINE CHEM U Sodium 41 01/21/2018 [facility] CARDIAC ENZYMES BNP 53 <=100 pg/mL 01/21/2018 [facility] HEMATOLOGY INR 1.24 0.85 - 1.17 01/21/2018 [facility] HEMATOLOGY PT 15.4 12.0 - 14.7 01/21/2018 [facility] HEMATOLOGY PTT 35.1 22.9 - 35.8 01/21/2018 [facility] URINE AND STOOL UA RBC 4 0 - 2 01/21/2018 [facility] URINE AND STOOL UA Sq Epi [...] Slight *ABN* (01/21/18 6:50 AM) Clear 01/21/2018 [facility] URINE AND STOOL UA pH 6.5 5.0 - 8.0 01/21/2018 [facility] URINE AND STOOL UA Leuk Est Negative (01/21/18 6:50 AM) Negative 01/21/2018 [facility] URINE AND STOOL UA Nitrite Negative (01/21/18 6:50 AM) Negative 01/21/2018 [facility] URINE AND STOOL UA Bili Negative *NA* (01/21/18 6:50 AM) Negative 01/21/2018 [facility] URINE AND STOOL UA Blood Negative (01/21/18 6:50 AM) Negative 01/21/2018 [facility] URINE AND STOOL UA Urobilinogen 0.2 0.1 - 1.0 01/21/2018 Result Comment: Urobilinogen performed on the Clinitek analyzer. 01/21/2018 07:27 AGUILAR [facility] URINE AND STOOL UA Color Yellow *NA* (01/21/18 6:50 AM) Yellow 01/21/2018 [facility] CARDIAC ENZYMES Troponin-I <0.02 0.00 - 0.40 01/21/2018 [facility] CHEM PANEL Lipase Lvl 577 73 - 393 01/21/2018 [facility] CHEM PANEL Albumin Lvl 3.2 3.5 - 5.0 01/21/2018 [facility] CHEM PANEL Total Protein 8.7 6.4 - 8.4 01/21/2018 [facility] CHEM PANEL Alk Phos 104 39 - 136 01/21/2018 [facility] CHEM PANEL AST 14 0 - 37 01/21/2018 [facility] CHEM PANEL ALT 15 0 - 65 01/21/2018 [facility] CHEM PANEL Bili Total 0.4 0.2 - 1.3 01/21/2018 [facility] CHEM PANEL A/G Ratio 0.6 0.7 - 1.6 01/21/2018 [facility] CHEM PANEL Globulin 5.5 2.7 - 4.2 01/21/2018 [facility] CHEM PANEL B/C Ratio 14 6 - 25 01/21/2018 [facility] HEMATOLOGY Plt Morph Normal (01/21/18 6:39 AM) 01/21/2018 [facility] HEMATOLOGY RBC Morph Normal (01/21/18 6:39 AM) 01/21/2018 [facility] ELECTROLYTES Sodium Lvl 134 135 - 145 01/10/2018 [facility] ELECTROLYTES Potassium Lvl 4.3 3.5 - 5.1 01/10/2018 [facility] ELECTROLYTES Chloride Lvl 99 95 - 109 01/10/2018 [facility] ELECTROLYTES Creatinine Lvl 1.99 0.50 - 1.40 01/10/2018 [facility] ELECTROLYTES Glucose Lvl 126 70 - 99 01/10/2018 [facility] ELECTROLYTES BUN 51 7 - 22 01/10/2018 [facility] ELECTROLYTES eGFR 25 01/10/2018 Result Comment: [...] should be multiplied by the estimated BMI. [facility] ELECTROLYTES CO2 25 24 - 32 01/10/2018 [facility] ELECTROLYTES AGAP 14.3 10.0 - 20.0 01/10/2018 [facility] ELECTROLYTES Calcium Lvl 9.0 8.5 - 10.5 01/10/[address] [facility] MPV 6.8 7.4 - 10.4 01/10/[address] [facility] Hgb 8.7 12.0 - 16.0 01/10/[address] [facility] Hct 26.8 36.0 - 48.0 01/10/[address] [facility] WBC 8.4 3.7 - 10.4 01/10/[address] [facility] Platelet 345 133 - 450 01/10/[address] [facility] RDW 17.9 11.5 - 14.5 01/10/[address] [facility] MCHC 32.5 32.0 - 36.0 01/10/[address] [facility] MCV 89.7 80.0 - 98.0 01/10/[address] [facility] MCH 29.1 27.0 - 31.0 01/10/[address] [facility] RBC 2.99 4.20 - 5.40 01/10/2018 [facility] CHEM PANEL eGFR 38 01/09/2018 Result [...] should be multiplied by the estimated BMI. [facility] CHEM PANEL Chloride Lvl 100 95 - 109 01/09/2018 [facility] CHEM PANEL Potassium Lvl 4.1 3.5 - 5.1 01/09/2018 [facility] CHEM PANEL AGAP 14.1 10.0 - 20.0 01/09/2018 [facility] CHEM PANEL CO2 26 24 - 32 01/09/2018 [facility] CHEM PANEL Calcium Lvl 8.4 8.5 - 10.5 01/09/2018 [facility] CHEM PANEL Glucose Lvl 191 70 - 99 01/09/2018 [facility] CHEM PANEL Sodium Lvl 136 135 - 145 01/09/2018 [facility] CHEM PANEL Creatinine Lvl 1.41 0.50 - 1.40 01/09/2018 [facility] CHEM PANEL BUN 47 7 - 22 01/09/2018 [facility] CHEM PANEL eGFR 39 01/08/2018 Result [...] should be multiplied by the estimated BMI. [facility] CHEM PANEL Calcium Lvl 8.1 8.5 - 10.5 01/08/2018 [facility] CHEM PANEL CO2 28 24 - 32 01/08/2018 [facility] CHEM PANEL Chloride Lvl 96 95 - 109 01/08/2018 [facility] CHEM PANEL Sodium Lvl 134 135 - 145 01/08/2018 [facility] CHEM PANEL Potassium Lvl 3.6 3.5 - 5.1 01/08/2018 [facility] CHEM PANEL BUN 57 7 - 22 01/08/2018 [facility] CHEM PANEL Creatinine Lvl 1.38 0.50 - 1.40 01/08/2018 [facility] CHEM PANEL Glucose Lvl 159 70 - 99 01/08/2018 [facility] CHEM PANEL AGAP 13.6 10.0 - 20.0 01/08/2018 [facility] CHEM PANEL Magnesium Lvl 1.9 1.8 - 2.4 01/08/2018 [facility] CHEM PANEL Phosphorus 4.0 2.5 - 4.5 01/08/2018 [facility] HEMATOLOGY Monocytes # 0.5 0.0 - 0.8 01/08/2018 [facility] HEMATOLOGY Neutrophils # 4.4 1.5 - 8.1 01/08/2018 [facility] HEMATOLOGY Eosinophils # 0.2 0.0 - 0.5 01/08/2018 [facility] HEMATOLOGY Lymphocytes # 2.3 1.0 - 5.5 01/08/2018 [facility] HEMATOLOGY Segs 58.4 45.0 - 75.0 01/08/2018 [facility] HEMATOLOGY Monocytes 6.9 2.0 - 12.0 01/08/2018 [facility] HEMATOLOGY Basophils 0.6 0.0 - 1.0 01/08/2018 [facility] HEMATOLOGY Lymphocytes 30.9 20.0 - 40.0 01/08/2018 [facility] HEMATOLOGY Eosinophils 3.2 0.0 - 4.0 01/08/2018 [facility] HEMATOLOGY Hgb 8.0 12.0 - 16.0 01/08/2018 [facility] HEMATOLOGY RBC 2.70 4.20 - 5.40 01/08/2018 [facility] HEMATOLOGY MCV 89.0 80.0 - 98.0 01/08/2018 [facility] HEMATOLOGY Hct 24.0 36.0 - 48.0 01/08/2018 [facility] HEMATOLOGY WBC 7.6 3.7 - 10.4 01/08/[address] [facility] MCH 29.6 27.0 - 31.0 01/08/2018 [facility] HEMATOLOGY RDW 18.0 11.5 - 14.5 01/08/2018 [facility] HEMATOLOGY MPV 7.4 7.4 - 10.4 01/08/[address] [facility] MCHC 33.2 32.0 - 36.0 01/08/2018 [facility] HEMATOLOGY Platelet 301 133 - 450 01/08/2018 [facility] CHEM PANEL Magnesium Lvl 2.2 1.8 - 2.4 01/07/2018 [facility] CHEM PANEL Phosphorus 5.6 2.5 - 4.5 01/07/2018 [facility] HEMATOLOGY Lymphocytes 26.3 20.0 - 40.0 01/07/2018 [facility] HEMATOLOGY Segs 62.3 45.0 - 75.0 01/07/2018 [facility] HEMATOLOGY Eosinophils 2.3 0.0 - 4.0 01/07/2018 [facility] HEMATOLOGY Monocytes 8.3 2.0 - 12.0 01/07/2018 [facility] HEMATOLOGY Basophils # 0.1 0.0 - 0.2 01/07/2018 [facility] HEMATOLOGY Neutrophils # 6.0 1.5 - 8.1 01/07/2018 [facility] HEMATOLOGY Eosinophils # 0.2 0.0 - 0.5 01/07/2018 [facility] HEMATOLOGY Lymphocytes # 2.5 1.0 - 5.5 01/07/2018 [facility] HEMATOLOGY Basophils 0.8 0.0 - 1.0 01/07/2018 [facility] HEMATOLOGY Monocytes # 0.8 0.0 - 0.8 01/07/2018 [facility] HEMATOLOGY RBC 2.77 4.20 - 5.40 01/07/[address] [facility] MCH 30.0 27.0 - 31.0 01/07/2018 [facility] HEMATOLOGY RDW 17.9 11.5 - 14.5 01/07/2018 [facility] HEMATOLOGY Platelet 285 133 - 450 01/07/[address] [facility] MCHC 33.8 32.0 - 36.0 01/07/2018 [facility] HEMATOLOGY MCV 88.8 80.0 - 98.0 01/07/[address] [facility] Hct 24.6 36.0 - 48.0 01/07/[address] [facility] Hgb 8.3 12.0 - 16.0 01/07/[address] [facility] MPV 6.7 7.4 - 10.4 01/07/[address] [facility] WBC 9.6 3.7 - 10.4 01/07/2018 [facility] CHEM PANEL Phosphorus 3.9 2.5 - 4.5 01/06/2018 [facility] CHEM PANEL Magnesium Lvl 2.0 1.8 - 2.4 01/06/2018 [facility] LIPIDS Trig 408 <=149 mg/dL 01/06/2018 [facility] Culture: Urine Specimen contains 3 or more potential pathogens; recommend correlation with urinalysis; if catheterized specimen recommend removal and recollection. If clinical situation warrants please call the laboratory for further testing. [place] [facility] [phone]. 01/03/2018 [facility] URINE AND STOOL UA Glucose Negative *NA* (01/02/18 6:44 AM) Negative 01/02/2018 [facility] URINE AND STOOL UA pH 5.0 5.0 - 8.0 01/02/2018 [facility] URINE AND STOOL UA Spec Grav 1.014 <=1.030 01/02/2018 [facility] URINE AND STOOL UA Color Yellow *NA* (01/02/18 6:44 AM) Yellow 01/02/2018 [facility] URINE AND STOOL UA Turbidity Marked *ABN* (01/02/18 6:44 AM) Clear 01/02/2018 [facility] URINE AND STOOL UA Protein >=300 mg/dL Negative mg/dL 01/02/2018 [facility] URINE AND STOOL UA Ketones Negative *NA* (01/02/18 6:44 AM) Negative 01/02/2018 [facility] URINE AND STOOL UA Bili Negative *NA* (01/02/18 6:44 AM) Negative 01/02/2018 [facility] URINE AND STOOL UA Bacteria Occasional /HPF None Seen /HPF 01/02/2018 [facility] URINE AND STOOL UA Mucus Few /LPF None Seen /LPF 01/02/2018 [facility] URINE AND STOOL UA WBC >182 0 - 5 01/02/2018 [facility] URINE AND STOOL UA RBC 2 0 - 2 01/02/2018 [facility] URINE AND STOOL UA Urobilinogen <=1.0 mg/dL 0.1 - 1.0 01/02/2018 [facility] URINE AND STOOL UA Nitrite Negative (01/02/18 6:44 AM) Negative 01/02/2018 [facility] URINE AND STOOL UA Blood Small *ABN* (01/02/18 6:44 AM) Negative 01/02/2018 [facility] URINE AND STOOL UA Trans Epi 11 <=0 /LPF 01/02/2018 [facility] URINE AND STOOL UA Leuk Est Large *ABN* (01/02/18 6:44 AM) Negative 01/02/2018 [facility] URINE AND STOOL UA Sq Epi Occasional /LPF Few /LPF 01/02/2018 [facility] URINE CHEM U Sodium 16 01/02/2018 [facility] URINE CHEM U Creatinine 156.00 01/02/2018 [facility] CHEM PANEL Albumin Lvl 2.4 3.5 - 5.0 01/02/2018 [facility] CHEM PANEL Total Protein 6.8 6.4 - 8.4 01/02/2018 [facility] CHEM PANEL B/C Ratio 12 6 - 25 01/02/2018 [facility] CHEM PANEL ALT 12 0 - 65 01/02/2018 [facility] CHEM PANEL A/G Ratio 0.5 0.7 - 1.6 01/02/2018 [facility] CHEM PANEL Globulin 4.4 2.7 - 4.2 01/02/2018 [facility] CHEM PANEL Alk Phos 99 39 - 136 01/02/2018 [facility] CHEM PANEL AST 11 0 - 37 01/02/2018 [facility] CHEM PANEL Bili Total 0.3 0.2 - 1.3 01/02/2018 [facility] HEMATOLOGY Basophils 0.8 0.0 - 1.0 01/02/2018 [facility] HEMATOLOGY Eosinophils 1.2 0.0 - 4.0 01/02/2018 [facility] HEMATOLOGY Lymphocytes # 2.2 1.0 - 5.5 01/02/2018 [facility] HEMATOLOGY Neutrophils # 6.9 1.5 - 8.1 01/02/2018 [facility] HEMATOLOGY Monocytes # 0.6 0.0 - 0.8 01/02/2018 [facility] HEMATOLOGY Basophils # 0.1 0.0 - 0.2 01/02/2018 [facility] HEMATOLOGY Eosinophils # 0.1 0.0 - 0.5 01/02/2018 [facility] HEMATOLOGY Lymphocytes 22.4 20.0 - 40.0 01/02/[address] [facility] Monocytes 6.2 2.0 - 12.0 01/02/2018 [facility] HEMATOLOGY Segs 69.4 45.0 - 75.0 01/02/2018 [facility] IMMUNOLOGY Prealbumin 13.9 18.0 - 45.0 01/02/2018 [facility] LIPIDS Trig 446 <=149 mg/dL 01/02/2018 [facility] CHEM PANEL Albumin Lvl 2.7 3.5 - 5.0 01/01/2018 [facility] CHEM PANEL Total Protein 7.9 6.4 - 8.4 01/01/2018 [facility] CHEM PANEL Alk Phos 118 39 - 136 01/01/2018 [facility] CHEM PANEL Bili Total 0.2 0.2 - 1.3 01/01/2018 [facility] CHEM PANEL AST 17 0 - 37 01/01/2018 [facility] CHEM PANEL ALT 16 0 - 65 01/01/2018 [facility] CHEM PANEL B/C Ratio 12 6 - 25 01/01/2018 [facility] CHEM PANEL A/G Ratio 0.5 0.7 - 1.6 01/01/2018 [facility] CHEM PANEL Globulin 5.2 2.7 - 4.2 01/01/2018 [facility] IMMUNOLOGY Prealbumin 15.3 18.0 - 45.0 01/01/2018 [facility] Pathology Reports No Data Provided for [...] Bilateral renal cortical atrophy. SL: BRANDI 02/25/2018 [facility] Abdomen/Pelvis wo IV contrast CT PROCEDURE: [...] renal cyst. END REPORT MADHAVI: [id number] 02/25/2018 [facility] Forearm 2 views DX Patient Name: JOSÉ MIGUEL MÉNDEZ : 1950; Age: 67 years y/o Female MR: [id number] * RIGHT FOREARM, 2 views History: Right forearm pain. Technique: Frontal and lateral radiographs of the right forearm were obtained. FINDINGS: There is no evidence of fracture, dislocation, or acute change. There are no destructive lesions or other osseous abnormalities. IMPRESSION: 1. Negative right forearm. SL: [id number] 02/08/2018 [facility] Ext Upper Venous Doppler Unilat US [...] the time of dictation. SL: ALBERTA 02/08/2018 [facility] Chest 1view DX Clinical Indication: - fever, tachycardia, chills. Comparison: 01/21/2018 Findings: Frontal view of the chest was obtained. Left internal jugular CVC tip projects over the superior cavoatrial junction. The cardiac silhouette is normal. Atheromatous changes are present in the aorta. There is no lobar consolidation, effusion or edema. No pneumothorax. No acute osseous abnormality. IMPRESSION: No acute cardiopulmonary abnormality. SL: [id number] 02/07/2018 [facility] CVC insert non-tunnel age 5+ yrs VR Patient Name: JOSÉ MIGUEL MÉNDEZ : 1950 Age: 67 years Female MR: [id number] Study: CVC insert non-tunnel age 5+ yrs VR 01/22/2018 11:22 ECOLOGICAL MODELER Indication: Need for central venous access. Comparison: [...] catheter utilizing ultrasound and fluoroscopic guidance. SL: [id number] 01/22/2018 [facility] Retroperitoneal Complete US Patient Name: JOSÉ MIGUEL MÉNDEZ : 1950; Age: 67 years Female MR: [id number] Study: Retroperitoneal Complete US 01/21/2018 9:48 ECOLOGICAL MODELER Clinical Indication: Renal insufficiency - magi/ckd. . [...] noted. IMPRESSION: 1. No acute abnormality. SL: [id number] 01/21/2018 [facility] Chest/Abdomen/Pelvis wo IV contrast CT Patient Name: JOSÉ MIGUEL MÉNDEZ : 1950 Age: 67 years, Female MR: [id number] Study: Chest/Abdomen/Pelvis wo IV contrast CT 01/21/2018 7:58 ECOLOGICAL MODELER Examination: CT chest, abdomen, and pelvis without [...] T8, T12, and L5 vertebral bodies. SL: [id number] 01/21/2018 [facility] Chest 1view DX CHEST RADIOGRAPH SINGLE VIEW INDICATION: Shortness of breath, vomiting COMPARISON: Chest radiograph 08/24/2015 IMPRESSION: No consolidation or other acute intrathoracic abnormalities are visualized. SL:16 01/21/2018 [facility] CVC Replacement VR Patient Name: JOSÉ MIGUEL MÉNDEZ : 1950 Age: 67 years Female MR: [id number] Study: CVC Replacement VR 01/03/2018 3:03 PM ECOLOGICAL MODELER Indication: Malfunctioning catheter. Comparison: None. Preoperative diagnosis: [...] a supine position on the fluoroscopy table. Tile Layer film was obtained which demonstrated a left [...] catheter utilizing ultrasound and fluoroscopic guidance. SL: [id number] 01/03/2018 [facility] Retroperitoneal Complete US PROCEDURE: RENAL ULTRASOUND [...] renal cysts. Otherwise normal exam. [id number] 01/01/2018 [facility] Abdomen/Pelvis wo IV contrast CT PROCEDURE: [...] additional information. END REPORT SL: VITOR 01/01/2018 [facility] Chest 2 views DX EXAMINATION: Chest, [...] Anemia, unspecified Comparison Exam: None Discussion: On screen printing paster view, there are no dilated loops of [...] Source Temperature Oral (F) 98.1 F 03/05/2018 [facility] Heart Rate 95 03/05/2018 [facility] Systolic (mm Hg) 107 03/05/2018 [facility] Diastolic (mm Hg) 57 03/05/2018 [facility] Temperature Oral (F) 98.0 F 03/05/2018 [facility] Systolic (mm Hg) 129 03/05/2018 [facility] Diastolic (mm Hg) 82 03/05/2018 [facility] Heart Rate 102 03/05/2018 [facility] Systolic (mm Hg) 122 03/05/2018 [facility] Diastolic (mm Hg) 78 03/05/2018 [facility] Respitory Rate 16 03/05/2018 [facility] Heart Rate 97 03/05/2018 [facility] Temperature Oral (F) 98.0 F 03/05/2018 [facility] Respitory Rate 16 03/05/2018 [facility] Respitory Rate 16 03/05/2018 [facility] Height 121.92 cm 02/26/2018 [facility] Weight 53.4 02/26/2018 [facility] BMI Calculated 35.92 02/26/2018 [facility] Weight 62.727 02/25/2018 [facility] BMI Calculated 25.29 02/25/2018 [facility] Height 157.48 cm 02/25/2018 [facility] Systolic (mm Hg) 145 02/13/2018 [facility] Diastolic (mm Hg) 67 02/13/2018 [facility] Temperature Oral (F) 98.5 F 02/13/2018 [facility] Heart Rate 111 02/13/2018 [facility] Temperature Oral (F) 98.7 F 02/13/2018 [facility] Heart Rate 106 02/13/2018 [facility] Systolic (mm Hg) 151 02/13/2018 [facility] Diastolic (mm Hg) 67 02/13/2018 [facility] Heart Rate 104 02/13/2018 [facility] Temperature Oral (F) 97.8 F 02/13/2018 [facility] Respitory Rate 20 02/13/2018 [facility] Systolic (mm Hg) 136 02/13/2018 [facility] Diastolic (mm Hg) 77 02/13/2018 [facility] Respitory Rate 18 02/13/2018 [facility] Respitory Rate 16 02/13/2018 [facility] Weight 59.091 01/21/2018 [facility] Weight 59.091 01/21/2018 [facility] BMI Calculated 27.23 01/21/2018 [facility] Height 147.32 cm 01/21/2018 [facility] Heart Rate 91 01/13/2018 [facility] Temperature Oral (F) 98.2 F 01/13/2018 [facility] Systolic (mm Hg) 114 01/13/2018 [facility] Diastolic (mm Hg) 73 01/13/2018 [facility] Systolic (mm Hg) 131 01/13/2018 [facility] Diastolic (mm Hg) 78 01/13/2018 [facility] Heart Rate 91 01/13/2018 [facility] Temperature Oral (F) 97.8 F 01/13/2018 [facility] Systolic (mm Hg) 124 01/13/2018 [facility] Diastolic (mm Hg) 78 01/13/2018 [facility] Respitory Rate 18 01/13/2018 [facility] Heart Rate 87 01/13/2018 [facility] Temperature Oral (F) 97.9 F 01/13/2018 [facility] Respitory Rate 18 01/13/2018 [facility] Respitory Rate 20 01/13/2018 [facility] Height 147.32 cm 01/01/2018 [facility] BMI Calculated 28.06 01/01/2018 [facility] Weight 60.909 01/01/2018 [facility] BMI Calculated 28.06 01/01/2018 [facility] Weight 60.909 01/01/2018 [facility] Height 147.32 cm 01/01/2018 [facility] Height 147.32 cm 01/01/2018 [facility] BMI Calculated 28.06 01/01/2018 [facility] Weight 60.909 01/01/2018 [facility] Encounters Location Location Details Encounter Type Encounter Number Reason For Visit Attending Provider ADM Date DC Date Status Source [facility] [place] [facility] [id number] Jarrell Gaytan 04/13/2015 04/14/2015 [facility] [place] [facility] [place] [facility] [id number] Thomas Perry 08/24/2015 08/25/2015 [facility] [place] [facility] [id number] [facility] 01/01/2018 01/13/2018 [facility] Inpatient [id number] [facility] 01/21/2018 02/14/2018 [facility] Inpatient [id number] [facility] 02/25/2018 03/06/2018 [facility] Procedures Procedure Code Date Perfomer Comments Source Colectomy [id number] [facility] Hemorrhoidectomy [id number] [facility] Knee joint operation [id number] [facility] Ostomy care management [id number] [facility] Wrist repair [id number] [facility] Assessment and Plan Assessment and Plan Date Source Extracted from:Title: Clinical Document Author: Celeste Samuels MD Date: 03/05/18 Progress Daily [facility] Completed: Feb, 17:44 by Celeste Samuels [...] on and off leakage from the fistula government sales manager. Apparently she is accepted to a [...] connected to the suction tube draining profusely FINANCIAL DEVELOPER AAox3 NO FND Skin no wounds seen [...] an outpatient to and discussed with the correctional casework specialist patient needs a fistula government sales manager and suction at the skilled facility [...] Meals 02/25/18 enoxaparin (Lovenox) 30 mg SUB-Q [id number] 03/02/18 metoprolol (metoprolol extended release) 25 mg [...] (SEROquel) 25 mg PO BID 02/25/18 acetaminophen-hydrocodone ([place] 5/325 oral tablet) 1 tab PO Q6H 02/25/18 acetaminophen 650 mg PO Q6H 02/25/18 bisacodyl 10 mg NC Daily 02/25/18 diphenhydrAMINE 25 mg PO Q6H [...] MD Date: 03/05/18 Discharge Information Disposition to [facility]pc facility Condition stable Medications: See med reconciliation [...] underwent a colectomy with ileostomy placement at [facility] in September as per her she had [...] as we do not have any wound government sales manager in the wound clinic and she was supposed to get a wound government sales manager from the [facility] and follow-up in the wound clinic REVIEW [...] midline. Fistula area secondary to stool irritation FINANCIAL DEVELOPER AAox3 NO FND Skin no wounds seen [...] eval Lovenox for DVT prophylaxis Case management: retirement facility placement Disposition: Inpatient DC planning: Patient will be discharged to fpc facility placement. 03/06/2018 [facility] Extracted from:Title: Discharge Summary * Author: Joshua Healy MD Date: 02/13/18 Discharge Information depo: home condition: stable reg diet Extracted from:Title: Clinical Document Author: John Oreilly MD Date: 02/13/18 Progress Note - Daily [facility] Completed: Feb, 16:13 by John Oreilly [...] Tot 441 275 166 02/12 24hr Tot [id number] Medications (32) Active Scheduled Meds (12): [...] LORazepam 0.5 mg PO BID 01/21/18 acetaminophen-hydrocodone ([place] 5/325 oral tablet) 1 tab PO Q6H [...] I have examined the patient with the PA/REPORT ANALYST and confirmed the integral components of the history, physical examination, diagnosis and treatment plan. I agree with the note and management decisions as documented by the REPORT ANALYST/PA, and amended as needed in the text [...] moderate to severe pain. Will continue PO [place] 10/325mg every 6 hours as needed for mild to moderate pain. Discussed proper medication usage with the patient today. We left a prescription on her chart for [place] 10/325mg, #20, CTRL [id number] for upon discharge. We will continue to [...] BID 01/04/18 enoxaparin (Lovenox) 30 mg SUB-Q [id number] 01/04/18 octreotide 50 microgram SUB-Q TID 01/04/18 pantoprazole 40 mg IVP Q12H 01/04/18 sertraline 100 mg PO Daily PRN Meds (16): 01/02/18 Dextrose 50% in Water IV (Dextrose 50% Syringe) 12.5 gm IVP PRN 01/02/18 Dextrose 50% in Water IV (Dextrose 50% Syringe) 25 gm IVP PRN 01/04/18 LORazepam (Ativan) 0.5 mg PO TID 01/01/18 acetaminophen-hydrocodone ([place] 10/325 oral tablet) 1 tab PO Q6H [...] 01/06/2018 07:00 Surgical Drains: Other: midline fistula government sales manager [facility] 01/01/2018 07:50 GI Ostomy: Ileostomy Established [...] underwent a colectomy with ileostomy placement at [facility] in September as per her she had [...] by the wound care nurse and wound government sales manager was placed today and she has [...] Ibuprofen. Motrin. Physical examination: Vital signs T98.4 NC 86 BP 03/10/1967 RR 16 HEENT ROSANGELA Neck supple RS Equal AE b/l no added sounds CVS S1S2 normal no murmur P/A soft patient has a wound government sales manager in the midline having profuse feculent drainage She has a ileostomy could not see the wound as patient has a wound government sales manager FINANCIAL DEVELOPER AAox3 NO FND Skin intact Ext no [...] can when we reevaluate without a wound government sales manager and as per the patient and [...]
--- NOTE | 2018-11-05 12:34 | Diagnostic Imaging Report ---
EXAM: CT Abdomen and Pelvis WITHOUT intravenous contrast INDICATION: Abdominal pain COMPARISON: CT abdomen and pelvis of 10/20/2018 TECHNIQUE: Abdomen and pelvis were scanned utilizing a multidetector helical scanner from the lung base to the pubic symphysis without administration of IV contrast. Coronal and sagittal reformations were obtained. IV CONTRAST: None ORAL CONTRAST: None COMPLICATIONS: None RADIATION DOSE: Total DLP: 157.4 mGy*cm Dose modulation, iterative reconstruction, and/or weight based adjustment of the mA/kV was utilized to reduce the radiation dose to as low as reasonably achievable. FINDINGS: LOWER THORAX: No focal consolidation. Atherosclerotic calcifications of the coronary arteries. HEPATOBILIARY: No focal liver lesions. Status post cholecystectomy. SPLEEN: No splenomegaly. PANCREAS: No focal masses or ductal dilatation. ADRENALS: No adrenal nodules. KIDNEYS/URETERS: No hydronephrosis, stones, or solid mass lesions. PELVIC ORGANS/BLADDER: There is air in the bladder, likely related to recent Clark catheterization. PERITONEUM / RETROPERITONEUM: No free air or fluid. LYMPH NODES: No lymphadenopathy. VESSELS: Heavy diffuse atherosclerotic calcifications of the abdominal aorta and major branches. GI TRACT: No significant interval change in diffuse thickening of the stomach and proximal duodenal wall. No bowel obstruction. Right lower quadrant ostomy. BONES AND SOFT TISSUES: Diffuse osteopenia. No acute osseous injury. No suspicious lytic or blastic lesions. IMPRESSION: Unchanged nonspecific stomach and proximal duodenal wall thickening. Heavy diffuse atherosclerotic calcifications including of the coronary arteries. Signed by: Melanie Fischer MD on 11/05/2018 12:31 PM
[2018-11-05] MEDS ORDERED: SODIUM CHLORIDE 0.9% 250ML 250 ML ONE (12:59)
[2018-11-05] MEDS ORDERED: LIDOCAINE HCL 1% LOCAL INJ 20 ML VIAL ONE (12:59)
[2018-11-05] MEDS ORDERED: HEPARIN SOD (PORCINE) 1000 UNIT/ML 30ML ONE (13:02)
--- NOTE | 2018-11-05 13:30 | NUR ---
Received patient from ER. Patient in stable condition, no signs of distress at this time. Colostomy bag changed. All safety measures in place. Call light placed within reach. Will continue to monitor.
[2018-11-05 13:58] LABS: CREATINE KINASE MB 1.4 ng/mL (0-5.0)
[2018-11-05] MEDS: MORPHINE SULFATE 2 MG/ML SYR 1ML IV PRN ×3 (14:06→22:33)
[2018-11-05 14:07] VITALS: BP 129/77
[2018-11-05 14:22] VITALS: BP 129/77
--- NOTE | 2018-11-05 14:27 | NUR ---
Patient returned to unit from procedure. In stable condition, no signs of distress at this time. All safety measures in place. Will continue to monitor. Addendum: 11/05/18 at 1901 by Radha Juan RN Please ignore. Entered in error.
[2018-11-05 14:29] VITALS: BP 129/77
--- NOTE | 2018-11-05 14:54 | NUR ---
Patient leaving unit for procedure. No signs of distress at this time.
[2018-11-05] MEDS: INSULIN LISPRO 100 UNIT/1 ML 3ML VIAL SQ SCH ×2 (16:30→21:00)
--- NOTE | 2018-11-05 16:30 | NUR ---
Patient returned to unit. Per Dr. Escalante will proceed to attempt femoral temporary dialysis catheter. Patient in stable condition, no signs of distress at this time. All safety measures in place. Will continue to monitor.
[2018-11-05 16:33] VITALS: BP 120/74
[2018-11-05] MEDS ORDERED: LORAZEPAM INJ 2 MG/ML VIAL IV ONE (17:00)
[2018-11-05] MEDS: DEXTROSE 5%/0.45% SOD CHL 1,000 ML IV SCH (18:28)
[2018-11-05] MEDS ORDERED: MAGNESIUM OXID400 MG PO (18:42)
[2018-11-05] MEDS ORDERED: SUCRALFATE1 GM PO (18:42)
[2018-11-05] MEDS ORDERED: MELATONIN 3 MG TAB PO PRN (18:45)
--- NOTE | 2018-11-05 18:45 | NUR ---
Temporary femoral dialysis catheter placed. OK for immediate use. Dialysis nurse notified. Patient in stable condition, no signs of distress or c/o pain at this time. All safety measures in place. Will continue to monitor.
--- NOTE | 2018-11-05 18:59 | NUR ---
Bedside report given to night nurse. Patient currently getting ready to undergo hemodialysis. No signs of distress or c/o pain at this time. All safety measures in place.
[2018-11-05 20:29] VITALS: BP 105/61
[2018-11-05 21:00] VITALS: BP 105/61
[2018-11-05] MEDS ORDERED: PANCRELIPASE 6000 ER CAPSULE PO SCH (21:00)
[2018-11-05] MEDS ORDERED: HEPARIN SOD (PORCINE) 1000 UNIT/ML SDV IV PRN (21:00)
[2018-11-05 21:42] LABS: CREATINE KINASE MB 2.1 ng/mL (0-5.0)
[2018-11-05] MEDS: MEROPENEM 500MG/ NS 50ML 50 ML IV SCH (22:17)
[2018-11-05] MEDS: METOPROLOL TARTRATE 50 MG TAB PO SCH (22:32)
[2018-11-05] MEDS: MIRTAZAPINE 15 MG TAB PO SCH (22:33)
[2018-11-05] MEDS: MELATONIN 5 MG TABLET PO PRN (22:33)
[2018-11-05] MEDS: METOCLOPRAMIDE HCL 10 MG TAB PO SCH (22:33)
[2018-11-05] MEDS: CLONIDINE HCL 0.3MG/24 HR PATCH TD SCH (22:47)
--- NOTE | 2018-11-05 23:03 | NUR ---
16fr blood placed per dr segovia.
--- NOTE | 2018-11-05 23:18 | Consultation ---
DATE OF CONSULTATION: 11/05/2018 HISTORY OF PRESENT ILLNESS: A 68-year-old female, well known to our Nephrology Service presented extremely dehydrated with a history of nausea and vomiting. Found to have life-threatening hyperkalemia and significant azotemia. BUN 101, creatinine 8.3, magnesium 0.6. Initial potassium was elevated at 5.9. I spoke with Dr. Sweeney. He gave emergent treatment for high potassium. We are awaiting a dialysis catheter for the patient to get dialysis. She does not have a Clark catheter. She is currently awake, alert, oriented x3, lying supine. Appears to have lost a lot more weight than I last saw her. She appears quite dehydrated. Currently at the moment, denies nausea, vomiting, or abdominal pain. PHYSICAL EXAMINATION: VITAL SIGNS: She has a blood pressure of 123/63, pulse rate 107, afebrile, oxygen saturation 98% on room air. HEAD AND NECK: Cornea clear. Oral mucosa dry. Neck veins flat. LUNGS: Clear. No rales or rhonchi. HEART: S1 and S2 audible. ABDOMEN: Otherwise, soft and nontender. No deep palpation done. EXTREMITIES: Lower extremity examination shows no edema. IMPRESSION AND PLAN: Hyperkalemia, acute kidney injury superimposed on chronic kidney disease, stage 3, and hypocalcemic, hypomagnesemic with a magnesium that has since been replaced. Amylase and lipase 104 and 39. Plan on dialyzing as soon as dialysis catheter is placed by IR charge nurse and this is in the process of contacting IR dialysis nurse on standby. She is currently on aspirin 81 mg daily. She is on heparin subcu, Humalog insulin, Protonix, and Zofran p.r.n. Plan on resuscitating volume. I have asked the nurse to insert a Clark for strict I's and O's. We will start D5 water at 125 mL an hour. We will repeat chemistries in the morning. Dialysis to be done as soon as dialysis catheter is placed. MD LIZZETH Garcia/GABI /[id number]
[2018-11-06] VITALS (7 sets, daily range): BP systolic 98–140; BP diastolic 44–82
[2018-11-06] MEDS: DEXTROSE 5%/0.45% SOD CHL 1,000 ML IV SCH ×4 (00:45→18:31)
[2018-11-06] MEDS: MORPHINE SULFATE 2 MG/ML SYR 1ML IV PRN ×4 (02:35→21:55)
--- NOTE | 2018-11-06 05:18 | Consultation ---
DATE OF CONSULTATION: 11/05/2018 GI Consult Note CONSULTING PHYSICIAN: Nick Lou MD. REASON FOR CONSULT: Removal of PEG tube. HISTORY OF PRESENTING ILLNESS: 68-year-old female with end-stage renal disease, on hemodialysis. Has had some kind of abdominal surgery in May, after that she has had a left-sided ileostomy site/colostomy. She also had endoscopically placed G-tube. The patient has not been using it for many months. She is eating and drinking fine. She does not use PEG tube even for any medication or water flushes. She want to get this removed. REVIEW OF SYSTEMS: Twelve point system reviewed. Symptomatology is limited as per HPI. PAST MEDICAL HISTORY: End-stage renal disease, on hemodialysis; coronary artery disease; hyperlipidemia; and GERD. PAST SURGICAL HISTORY: AV fistula placement for hemodialysis, abdominal surgery with right ileostomy/colostomy. FAMILY HISTORY: Noncontributory. SOCIAL HISTORY: No smoking, alcohol, or any illicit drug use. ALLERGIES: IBUPROFEN. HOME MEDICATIONS: Aspirin, atorvastatin, vitamin D3, magnesium oxide, melatonin, metoclopramide, metoprolol, Zofran, pantoprazole, and sucralfate. INPATIENT MEDICATION: Reviewed as per APR. PHYSICAL EXAMINATION: VITAL SIGNS: Temperature 96.9, pulse 115, respirations 17, blood pressure 105/61, and oxygen saturation 97% on room air. GENERAL: Not in any apparent distress, thin body habitus, low muscle mass. Oral mucosa is moist. Anicteric sclerae. CVS: S1 and S2. Regular. LUNGS: Bilaterally grossly clear, although the patient has very poor inspiratory effort. ABDOMEN: Soft and nondistended. PEG tube is in place. No discharge, leakage, or any bleeding. No mass or hernia. Right ileostomy/colostomy. Bowel sounds present. EXTREMITIES: Warm. No leg edema. LABORATORY DATA: WBC 14.07, hemoglobin 10.5, hematocrit 31.2, and platelet count 227. Sodium 132, potassium 5.9, chloride 90, bicarb 21, BUN 101, creatinine 8.31, and glucose 149. Liver enzymes are normal. PT 15.3, INR 1.15. Urinalysis is negative. CT of the abdomen and pelvis without any contrast showed unchanged nonspecific stomach and proximal duodenal wall thickening. Heavy diffuse atherosclerotic calcification including the coronary arteries. No bowel obstruction. Right lower quadrant ostomy. IMPRESSION: On examination it seems like the patient has externally removable PEG tube. PLAN: The PEG tube was pulled out. Gastrocutaneous fistula was covered with gauze. The patient was advised that expect this to get closed in next 6 to 10 hours. Rest of the care as per primary team. Enrrique Price MD SA/GABI /[id number]
[2018-11-06 05:34] LABS: BASOPHILS # (AUTO) 0.1 (0.0-0.1); EOSINOPHILS # (AUTO) 1.3 (0.0-0.4); HEMATOCRIT 26.9 % (34.2-44.1); HEMOGLOBIN 8.9 g/dL (12.0-16.0); LYMPHOCYTES # (AUTO) 1.3 (1.0-3.2); LYMPHOCYTES % 11.4 % (18.0-39.1); MEAN CORPUSCULAR HEMOGLOBIN 32.6 pg (28-32); MEAN CORPUSCULAR HGB CONC 33.1 g/dL (31-35); MEAN CORPUSCULAR VOLUME 98.5 fL (81-99); MONOCYTES # (AUTO) 0.8 (0.2-0.8); MONOCYTES % 7.5 % (4.4-11.3); NEUTROPHILS # (AUTO) 7.4 (2.1-6.9); NEUTROPHILS % 67.4 % (38.7-80.0); PLATELET COUNT 198 x10e3/uL (140-360); RED BLOOD COUNT 2.73 x10e6/uL (3.6-5.1); RED CELL DISTRIBUTION WIDTH 13.8 % (11.7-14.4)
[2018-11-06 05:56] LABS: ALBUMIN 2.7 g/dL (3.5-5.0); ALBUMIN/GLOBULIN RATIO 0.7 (0.8-2.0); CALCIUM 7.7 mg/dL (8.4-10.2); CHOL/HDL RATIO 4.6 (3.0-3.6); CREATININE, SERUM 4.52 mg/dL (0.57-1.11)
--- NOTE | 2018-11-06 07:12 | NUR ---
Received bedside report from night nurse. Patient resting in bed, no signs of distress or c/o pain at this time. All safety measures in place. Will continue to monitor.
[2018-11-06] MEDS: INSULIN LISPRO 100 UNIT/1 ML 3ML VIAL SQ SCH ×4 (07:30→21:00)
[2018-11-06] MEDS ORDERED: PANTOPRAZOLE SOD 40 MG TABEC PO SCH (07:30)
[2018-11-06] MEDS: METOCLOPRAMIDE HCL 10 MG TAB PO SCH ×4 (08:18→21:55)
[2018-11-06] MEDS: ASPIRIN 81 MG CHEW TAB PO SCH (08:19)
[2018-11-06] MEDS: CHOLECALCIFEROL 1,000 UNIT TAB PO SCH (08:19)
[2018-11-06] MEDS ORDERED: MEROPENEM 500 MG VIAL IV SCH (09:00)
[2018-11-06] MEDS: METOPROLOL TARTRATE 50 MG TAB PO SCH ×2 (09:00→21:55)
[2018-11-06] MEDS: NIFEDIPINE CR 30 MG TAB PO SCH ×2 (09:00→17:00)
--- NOTE | 2018-11-06 09:00 | Diagnostic Imaging Report ---
PROCEDURE: Non-tunneled central venous catheter placement Procedural Personnel Attending physician(s): Melanie Fischer MD Fellow physician(s): None Resident physician(s): None Advanced practice provider(s): None Pre-procedure diagnosis: Acute kidney injury Post-procedure diagnosis: Same Indication: Performance of hemodialysis Additional clinical history: None Complications: No immediate complications. IMPRESSION: Insertion of right-sided non-tunneled triple-lumen temporary dialysis catheter via the right common femoral vein. Plan: The catheter may be used immediately. PROCEDURE SUMMARY: - Venous access with ultrasound guidance - Non-tunneled central venous catheter insertion with sonographic guidance. - Additional procedure(s): None PROCEDURE DETAILS: Pre-procedure Consent: Informed consent for the procedure including risks, benefits and alternatives was obtained and time-out was performed prior to the procedure. Preparation (MIPS): The site was prepared and draped using all elements of maximal sterile barrier technique including sterile gloves, sterile gown, cap, mask, large sterile sheet, sterile ultrasound probe cover, hand hygiene and cutaneous antisepsis with 2% chlorhexidine. Medical reason for site preparation exception (MIPS): Not applicable Anesthesia/sedation Level of anesthesia/sedation: No sedation Access Local anesthesia was administered. The vessel was sonographically evaluated and determined to be patent. Real time ultrasound was used to visualize needle entry into the vessel and a permanent image was stored. Vein accessed: Right common femoral vein Access technique: Micropuncture set with 21 gauge needle Catheter placement The access site was dilated and the catheter was placed into the vein over a wire under fluoroscopic guidance. The catheter tip location was fluoroscopically verified and a permanent image was stored.. A sterile dressing was applied. Catheter placed: 13 Croatian 20 cm Bard trialysis Catheter size (Croatian): 13 Catheter length (cm): 20 Catheter flush: Normal saline Catheter securement technique: Non-absorbable suture Contrast Contrast agent: None Radiation Dose No fluoroscopy used. Additional Details Additional description of procedure: None Equipment details: None Specimens removed: None Estimated blood loss (mL): Less than 10 Standardized report: [email or web address] Attestation Signer name: Melanie Fischer MD I attest that I was present for the entire procedure. I reviewed the stored images and agree with the report as written. Signed by: Melanie Fischer MD on 11/06/2018 8:57 AM
--- NOTE | 2018-11-06 09:09 | Diagnostic Imaging Report ---
PROCEDURE: Aborted tunneled hemodialysis catheter placement Procedural Personnel Attending physician(s): Melanie Fischer MD Fellow physician(s): None Resident physician(s): None Advanced practice provider(s): None Pre-procedure diagnosis: Acute kidney injury Post-procedure diagnosis: Same Indication: Performance of hemodialysis Additional clinical history: None Complications: The patient has chronic right internal jugular occlusion. Attempt was made on the left side where the internal jugular vein had intraluminal thrombus associated with the indwelling port catheter but a perceived sliver of patency by ultrasound. However, wire could not be passed centrally due to occlusion and the procedure was aborted. IMPRESSION: Aborted insertion of left IJ tunneled hemodialysis catheter. Plan: Upon discussion with Dr. Escalante, attempt will be made for placement of right common femoral temporary dialysis catheter. PROCEDURE SUMMARY: - Attempted left IJ tunneled HD catheter placement, aborted after inability to pass wire centrally due to bilateral IJ occlusion. Any future attempts at line placement should be made from a femoral approach. Anesthesia/sedation Level of anesthesia/sedation: No sedation Access Local anesthesia was administered. The vessel was sonographically evaluated and determined to contain intraluminal thrombus with a possible sliver of patency. Real time ultrasound was used to visualize needle entry into the vessel and a permanent image was stored. Vein accessed: External jugular vein Access technique: Micropuncture set with 21 gauge needle Catheter placement Attempt was made on the left side where the internal jugular vein had intraluminal thrombus associated with the indwelling port catheter but a perceived sliver of patency by ultrasound. However, wire could not be passed centrally due to occlusion and the procedure was aborted. Contrast Contrast agent: None Radiation Dose Fluoro time: 1.9 minutes Cumulative dose: 7.21 mGy Additional Details Additional description of procedure: None Equipment details: None Specimens removed: None Estimated blood loss (mL): Less than 10 Attestation Signer name: Melanie Fischer MD I attest that I was present for the entire procedure. I reviewed the stored images and agree with the report as written. Signed by: Melanie Fischer MD on 11/06/2018 9:06 AM
--- NOTE | 2018-11-06 11:42 | NUR ---
WOUND CARE CONSULT: THIS IS A 68 YEAR OLD FEMALE PATIENT ADMITTED TO [facility] FOR ABDOMINAL PAIN, CHEST PAIN, AND ESRD. HEAD TO TOE SKIN ASSESSMENT PERFORMED. PATIENT HAS A STAGE 1 SACRAL PRESSURE ULCER MEASURING [id number], SKIN INTACT, REDNESS 100% NONBLANCHABLE. PATIENT STATED "I HAVE HAD THIS REDNESS AND SORENESS TO MY BUTTOCKS FOR A FEW MONTHS NOW". EDUCATED PATIENT ON THE IMPORTANCE OF TURNING AND REPOSITIONING IN BED OR CHAIR EVERY 2 HOURS AND PRN TO ASSIST WITH PRESSURE OFFLOADING TO THAT AREA; PATIENT VERBALIZED UNDERSTANDING. A SMALL BRUISED NOTED TO PATIENT'S RIGHT SIDE OF HER NECK FROM RECENT CENTRAL LINE REMOVAL. RLQ PEG TUBE REMOVAL SITE MEASURING 0.2X0.1X0.1CM, SMALL AMOUNT OF SEROUS FLUID NOTED TO GAUZE WITH REMOVAL. PHYSICIAN, DR. LEWIS DISCUSSED WITH PATIENT TO EXPECT 6-10 HOURS FOR COMPLETE CLOSURE OF SITE; NURSING TO CONT TO MONITOR. LABS: WBC11.02 ALB2.7 [id number] URINE CULTURE - PENDING MEDICATIONS: MEROPENEM RECOMMENDATION: -CONTINUE ALTERNATING PRESSURE RELIEF MATTRESS. -CONTINUE BILATERAL HEEL PROTECTORS WITH PILLOW SUSPENSION. -TURN EVERY 2 HOURS AND PRN. -NURSING TO CLEAN STAGE 1 SACRAL PRESSURE ULCER WITH NORMAL SALINE, PAT DRY, APPLY VENELEX THEN ALLEVYN FOAM DRESSING; CHANGE DAILY AND PRN. -NURSING TO MONITOR RLQ PEG REMOVAL SITE DAILY; APPLY 4X4 GAUZE AND SECURE WITH TAPE DAILY AND PRN. THANK YOU FOR THIS WOUND CARE CONSULT. Addendum: 11/06/18 at 1153 by Azalia Hernandez RN Amended: Links added.
[2018-11-06] MEDS ORDERED: SODIUM CHLORIDE 0.9% 1000ML 2,000 ML ONE (12:30)
--- NOTE | 2018-11-06 16:10 | NUR ---
Nutrition Intervention Note RD Recommendation(s) for Physician: The patient meets criteria for MODERATE protein-calorie malnutrition. -Continue renal diet as ordered; rec ADA 1600 if BG trend upward -Rec renal MVi w/ minerals and vitamin C for wound healing -Pt refused any oral nutrition supplements. Plan of Care: RD following, monitoring for tolerance and adequacy Nutrition reason for involvement: Nutrition risk trigger MST RD Assessment (11/06) Labs and meds reviewed. 68yo F, who was admitted for abdominal pain, nausea and vomiting. Pt was well known to me from her previous admissions. Hyperkalemia has resolved. Pt was receiving HD during my visit. Pt denied any pain, nausea or vomiting at time of visit. Pt tolerated breakfast and lunch well with 75% intake. PEG tube has been removed. Pt denied any chewing or swallowing difficulty. + ileostomy. Pt has lost over 15-20lbs within 1 year period. Upon NFPA, pt has some mild muscle/ fat loss. RD offered ONS but pt refused. Will continue to monitor and follow. Principal Problems/Diagnoses: abdominal pain, chest pain, hyperkalemia, hypomagnesemia PMH: End-stage renal disease, on hemodialysis; coronary artery disease; hyperlipidemia; and GERD. I/O: +2040mL/ - 300mL GI: abdomen soft, non-tender, + BM Skin: stage 1 sacral pressure ulcer, per wound care Labs: (11/06) Na 135 L, Cl 95 L, BUN 40 H, Creatinine 4.52 H, Glucose 137 269 H, TG 210 H Meds: reglan, insulin, dextrose, vitamin D3, protonix Ht: 57in Wt: 109lb BMI: 23.6kg/m2 IBW: 94lb +/- 10% Malnutrition Evaluation (11/06/2018) The patient meets criteria for MODERATE protein-calorie malnutrition. 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 Nutrition Care Level: mod Nutrition Diagnosis: Moderate malnutrition related to inadequate oral intake as evidenced by poor PO intake, weight loss and mild muscle/fat loss. Goal: Patient will meet 75-100% of estimated needs by follow up Progress: Progressing Interventions: Mineral-modified diet, Multivitamin/mineral supplement therapy Monitoring/Evaluation: Total energy intake, Total protein intake, Modified diet, Weight change Signed: Janice Alex MS, RD, LD
--- NOTE | 2018-11-06 18:57 | NUR ---
Report given to night nurse. Patient in stable condition, no signs of distress or c/o pain at this time. All safety measures in place.
[2018-11-06] MEDS: MEROPENEM 500MG/ NS 50ML 50 ML IV SCH (21:55)
[2018-11-06] MEDS: MELATONIN 5 MG TABLET PO PRN (21:55)
[2018-11-06] MEDS: MIRTAZAPINE 15 MG TAB PO SCH (21:55)
[2018-11-07] VITALS (8 sets, daily range): BP systolic 95–131; BP diastolic 50–74
--- NOTE | 2018-11-07 00:17 | Progress Note ---
DATE: 11/06/2018 SUBJECTIVE: I was called by Dr. Escalante, nursing techn that the patient has high ileostomy output. She is almost changing four to six bags full of bile every day. She denies any abdominal pain. Tolerating oral diets well. REVIEW OF SYSTEMS: GENERAL: No fever or chills. CARDIOVASCULAR SYSTEM: No chest pain or palpitations. RESPIRATORY: No cough or expectoration. MEDICATIONS: Reviewed as per APR. PHYSICAL EXAMINATION: VITAL SIGNS: Temperature 98, pulse 82, respirations 18, and blood pressure 140/82, and oxygen saturation 92% on room air. GENERAL: Lean and thin body habitus, not in any acute distress. HEENT: Oral mucosa is moist. ABDOMEN: Soft, nondistended, nontender. Ileostomy bag full of bilious fecal fluid. Dialysis catheter in right groin. LABORATORY DATA: WBC 11.02, hemoglobin 8.9 down from 10.5, hematocrit 26.9, MCV 98.5, and platelet count 198. Sodium 135, potassium 5.0, chloride 95, bicarb 29, BUN 40, creatinine 4.52, and glucose 137. Liver enzymes showed albumin 2.7, AST 38, ALT is 13, and alkaline phosphatase 73. IMPRESSION: High ileostomy output/ileostomy diarrhea. PLAN: The patient is on antibiotic, meropenem. She may be having underlying antibiotic-induced diarrhea as well. Therefore, if it is no more indicated, consider discontinuing antibiotic. High ileostomy output is normally managed to ensure that there is no stenosis at the stoma of the ostomy. Therefore, recommend surgical surgery to evaluate and ensure that there was no restenosis at the ileostomy. We will put her on antisecretory therapy that will include proton pump inhibitor twice daily before each meal, octreotide subcu injection at least twice daily. We will give Imodium prior to every meal. In high ileostomy output, Imodium should be given before meal. At the same time in check her stool to ensure that there is no underlying infection, therefore check stool for Clostridium diff as well as a stool culture as well. We will continue to monitor her clinically. Enrrique Price MD SA/GABI /[id number] ASH
[2018-11-07] MEDS: DEXTROSE 5%/0.45% SOD CHL 1,000 ML IV SCH ×3 (00:45→20:56)
[2018-11-07] MEDS: MORPHINE SULFATE 2 MG/ML SYR 1ML IV PRN ×4 (01:14→14:32)
[2018-11-07] MEDS: METOPROLOL TARTRATE 50 MG TAB PO SCH ×3 (08:44→21:00)
[2018-11-07 08:45] LABS: ANION GAP 13.2 mmol/L (8-16); CREATININE, SERUM 3.24 mg/dL (0.57-1.11); POTASSIUM 4.2 mmol/L (3.5-5.1)
[2018-11-07] MEDS: ASPIRIN 81 MG CHEW TAB PO SCH (09:00)
[2018-11-07] MEDS: INSULIN LISPRO 100 UNIT/1 ML 3ML VIAL SQ SCH ×4 (09:01→20:51)
[2018-11-07] MEDS: CHOLECALCIFEROL 1,000 UNIT TAB PO SCH (09:01)
[2018-11-07] MEDS: BALSAM PERU/CASTOR OIL 5 GM OINT...G. TP SCH (09:01)
[2018-11-07] MEDS: METOCLOPRAMIDE HCL 10 MG TAB PO SCH ×4 (09:01→20:56)
[2018-11-07] MEDS: LOPERAMIDE HCL 2 MG CAP PO SCH ×4 (09:01→20:56)
[2018-11-07] MEDS: OCTREOTIDE ACETATE 0.05 MG/ML AMP SQ SCH ×2 (09:01→17:00)
[2018-11-07] MEDS: PANTOPRAZOLE SOD 40 MG TABEC PO SCH ×2 (09:01→17:12)
[2018-11-07] MEDS: NIFEDIPINE CR 30 MG TAB PO SCH ×2 (11:30→17:12)
--- NOTE | 2018-11-07 19:10 | NUR ---
Report given to oncoming nurse of patient's status. Resting in bed, side rails upx2,call light within reach. No s/s of acute distress noted.
[2018-11-07] MEDS: MEROPENEM 500MG/ NS 50ML 50 ML IV SCH (20:56)
[2018-11-07] MEDS: MIRTAZAPINE 15 MG TAB PO SCH (20:56)
--- NOTE | 2018-11-07 22:35 | NUR ---
CHANGE ILEOSTOMY MULTIPLE TIMES DUE TO LEAKING. EDUCATED PATIENT NOT TO PICK ON THE SITE. CONTINUE TO MONITOR CLOSELY
--- NOTE | 2018-11-07 22:58 | Progress Note ---
DATE: 11/07/2018 SUBJECTIVE: The patient reports some improvement in ileostomy output. No abdominal pain. REVIEW OF SYSTEMS: GENERAL: No fever or chills. CVS: No chest pain or palpitations. RESPIRATORY: No cough or expectoration. MEDICATIONS: Reviewed as per APR. PHYSICAL EXAMINATION: VITAL SIGNS: Temperature 98.1, pulse 77, respirations 18, blood pressure 111/74, oxygen saturation 98% on room air. GENERAL: Not in any acute distress. Oral mucosa is moist. Anicteric sclerae. ABDOMEN: Soft. Ileostomy is baggy, showing thick fecal fluid, which is not bilious, not green. It is light yellow brown. LABORATORY DATA: WBC 11.02, hemoglobin 8.9, hematocrit 26.9, and platelet count 198. Sodium 135, potassium 4.2, chloride 100, bicarb 26, BUN 17, and creatinine 3.24. IMPRESSION: High ileostomy output. PLAN: Stool culture is pending. Recommend to discontinue meropenem if it is no longer indicated. The patient may be having associated antibiotic-induced diarrhea as well. Continue Protonix 40 mg twice daily, octreotide subcu injection, as well as Imodium before each meal. We will continue to monitor her clinically. Enrrique Price MD SA/GABI /[id number]
[2018-11-08] VITALS (8 sets, daily range): BP systolic 96–104; BP diastolic 49–61
[2018-11-08] MEDS: DEXTROSE 5%/0.45% SOD CHL 1,000 ML IV SCH ×3 (00:45→16:45)
[2018-11-08] MEDS: MORPHINE SULFATE 2 MG/ML SYR 1ML IV PRN ×2 (04:20→09:28)
[2018-11-08] MEDS: PANTOPRAZOLE SOD 40 MG TABEC PO SCH ×2 (07:30→16:44)
[2018-11-08] MEDS: INSULIN LISPRO 100 UNIT/1 ML 3ML VIAL SQ SCH ×4 (07:30→21:00)
[2018-11-08] MEDS: METOCLOPRAMIDE HCL 10 MG TAB PO SCH ×4 (07:30→22:25)
[2018-11-08] MEDS: METOPROLOL TARTRATE 50 MG TAB PO SCH ×2 (09:00→21:00)
[2018-11-08] MEDS: CHOLECALCIFEROL 1,000 UNIT TAB PO SCH (09:00)
[2018-11-08] MEDS: NIFEDIPINE CR 30 MG TAB PO SCH ×2 (09:00→17:00)
[2018-11-08] MEDS: LOPERAMIDE HCL 2 MG CAP PO SCH ×4 (09:00→22:25)
[2018-11-08] MEDS: ASPIRIN 81 MG CHEW TAB PO SCH (09:00)
[2018-11-08] MEDS: OCTREOTIDE ACETATE 0.05 MG/ML AMP SQ SCH ×2 (09:00→17:00)
[2018-11-08] MEDS: BALSAM PERU/CASTOR OIL 5 GM OINT...G. TP SCH (10:16)
[2018-11-08] MEDS: HYDROCODONE/APAP 10MG-325MG TAB PO PRN (10:23)
--- NOTE | 2018-11-08 11:06 | Progress Note ---
DATE: 11/08/2018 SUBJECTIVE: Still in a lot of pain, skin around the ostomy is macerated. She is having a high output issue at this point. PHYSICAL EXAMINATION: GENERAL: Lying in bed, appears frail. VITAL SIGNS: Blood pressure 97/59, temperature 100.5, and pulse 108. CHEST: Clear. EXTREMITIES: No edema. ABDOMEN: Benign. SKIN: Red around the ostomy. : Clark in place with urine that appears like pus. ASSESSMENT: 1. Acute tubular necrosis, appears to be recovering based on chemistries and output. 2. Underlying urinary tract infection, pending final cultures. 3. Hypotension, partly from volume depletion, partly from infection. PLAN: Recheck chemistries in the morning. Leave on limited IV fluids. She is in quite a bit of pain so try to dose morphine at 1 mg p.r.n. instead of the 2 and see how she does. She may be able to tolerate a higher dose too assuming no mental status issues. We will follow along. Consider wound care nurse help. MD ALEJO Victor/GABI /[id number]
--- NOTE | 2018-11-08 19:37 | NUR ---
report given to oncoming nurse, pt stable.
[2018-11-08] MEDS: MEROPENEM 500MG/ NS 50ML 50 ML IV SCH (22:25)
[2018-11-08] MEDS: MIRTAZAPINE 15 MG TAB PO SCH (22:25)
[2018-11-09] VITALS (9 sets, daily range): BP systolic 88–135; BP diastolic 54–78
[2018-11-09] MEDS: DEXTROSE 5%/0.45% SOD CHL 1,000 ML IV SCH ×3 (00:45→16:45)
[2018-11-09] MEDS: MORPHINE SULFATE 2 MG/ML SYR 1ML IV PRN ×4 (04:51→21:30)
[2018-11-09 07:00] LABS: CALCIUM 8.7 mg/dL (8.4-10.2); CREATININE, SERUM 5.61 mg/dL (0.57-1.11); PHOSPHORUS 4.2 MG/DL (2.3-4.7)
--- NOTE | 2018-11-09 07:25 | NUR ---
paged to notify of k6.0 mag 1.0 BUN 34 creatinine 5.61.
--- NOTE | 2018-11-09 07:34 | NUR ---
case consultant. Aware of lab results. Per "call HD nurse". Spoke with Dann from [employer] to notify of doctor's message.
[2018-11-09] MEDS: INSULIN LISPRO 100 UNIT/1 ML 3ML VIAL SQ SCH ×4 (08:25→21:00)
[2018-11-09] MEDS: LOPERAMIDE HCL 2 MG CAP PO SCH ×4 (08:25→21:00)
[2018-11-09] MEDS: PANTOPRAZOLE SOD 40 MG TABEC PO SCH ×2 (08:25→16:24)
[2018-11-09] MEDS: BALSAM PERU/CASTOR OIL 5 GM OINT...G. TP SCH (08:25)
[2018-11-09] MEDS: CHOLECALCIFEROL 1,000 UNIT TAB PO SCH (08:25)
[2018-11-09] MEDS: METOCLOPRAMIDE HCL 10 MG TAB PO SCH ×4 (08:25→21:00)
[2018-11-09] MEDS: ASPIRIN 81 MG CHEW TAB PO SCH (08:25)
[2018-11-09] MEDS: OCTREOTIDE ACETATE 0.05 MG/ML AMP SQ SCH ×2 (08:33→16:25)
[2018-11-09] MEDS: METOPROLOL TARTRATE 50 MG TAB PO SCH ×2 (09:00→21:44)
[2018-11-09] MEDS: NIFEDIPINE CR 30 MG TAB PO SCH ×2 (09:00→16:25)
[2018-11-09] MEDS ORDERED: SODIUM CHLORIDE 0.9% 1000ML 2,000 ML ONE (10:05)
[2018-11-09] MEDS: HYDROCODONE/APAP 10MG-325MG TAB PO PRN ×2 (10:25→16:25)
[2018-11-09] MEDS ORDERED: MAGNESIUM SULFATE 2GM/50ML 50 ML IV ONE (11:15)
--- NOTE | 2018-11-09 13:16 | Progress Note ---
DATE: 11/09/2018 SUBJECTIVE: Had been drinking a lot of electrolyte water, "now her potassium is high." Renal function has not actually showed recovery in retrospect, however, the ileostomy output is better. Serum CO2 remains low consistent with the acidosis. PHYSICAL EXAMINATION: GENERAL: Appears frail, in no distress. VITAL SIGNS: Temperature 98.7, pulse 110, blood pressure is 135/78. CHEST: Clear. EXTREMITIES: No edema. ABDOMEN: Ostomy. Skin appears red around it. NEUROLOGIC: Alert, appropriate. Speech is normal. LABORATORY DATA: Potassium 6, serum CO2 of 18, creatinine 5.6, rising when dialysis is held. BUN is 34. ASSESSMENT: 1. Acute kidney injury, presumed acute tubular necrosis and history of chronic kidney disease. 2. Hypomagnesemia with a magnesium of 1 from GI losses. 3. Hyperkalemia, presumably due to imbalance between intake and output, and decreased GFR. 4. Metabolic acidosis from the GI losses and decreased GFR. PLAN: 1. Urgent dialysis today, briefly 2-hour run without pulling any fluid with 2 potassium bath, 35 CO2 bath. 2. Replace magnesium IV x1. Recheck chemistries in the morning. We will follow along. MD ALEJO Victor/GABI /[id number]
--- NOTE | 2018-11-09 15:30 | NUR ---
Visit made by the Spiritual Care Department Pastoral Visitor, Dale Brown. PV provided pastoral presence, hospitality, and supportive listening. Pastoral Visitor informed pt/family of the scope of Tissue Technician Services and availability. FAUSTO SKY [employer] Tufting Machine Operator Spiritual Care Department O: [phone] Pager: [phone] ([phone] number calling from)
--- NOTE | 2018-11-09 19:20 | NUR ---
Report given to oncoming nurse of patient's status. Resting in bed, side rails upx2, call light within reach. No s/s of acute distress noted.
[2018-11-09] MEDS: MEROPENEM 500MG/ NS 50ML 50 ML IV SCH (21:00)
[2018-11-09] MEDS: MIRTAZAPINE 15 MG TAB PO SCH (21:00)
[2018-11-10] VITALS (9 sets, daily range): BP systolic 95–147; BP diastolic 50–82
[2018-11-10] MEDS: DEXTROSE 5%/0.45% SOD CHL 1,000 ML IV SCH ×3 (00:45→16:45)
[2018-11-10] MEDS: MORPHINE SULFATE 2 MG/ML SYR 1ML IV PRN ×5 (01:10→22:04)
[2018-11-10 06:33] LABS: CALCIUM 8.8 mg/dL (8.4-10.2); CREATININE, SERUM 4.58 mg/dL (0.57-1.11); MAGNESIUM 1.9 MG/DL (1.3-2.1)
--- NOTE | 2018-11-10 07:00 | NUR ---
received am report from rn and morning rounds done. pt is sleeping, no s/s of distress. call light is within reach, side rails up.
[2018-11-10] MEDS: INSULIN LISPRO 100 UNIT/1 ML 3ML VIAL SQ SCH ×4 (07:30→21:41)
[2018-11-10] MEDS: PANTOPRAZOLE SOD 40 MG TABEC PO SCH ×2 (08:11→17:19)
[2018-11-10] MEDS: ASPIRIN 81 MG CHEW TAB PO SCH (08:12)
[2018-11-10] MEDS: METOCLOPRAMIDE HCL 10 MG TAB PO SCH ×4 (08:12→21:41)
[2018-11-10] MEDS: LOPERAMIDE HCL 2 MG CAP PO SCH ×4 (08:12→21:40)
[2018-11-10] MEDS: METOPROLOL TARTRATE 50 MG TAB PO SCH ×2 (08:12→21:41)
[2018-11-10] MEDS: NIFEDIPINE CR 30 MG TAB PO SCH ×2 (08:13→17:00)
[2018-11-10] MEDS: CHOLECALCIFEROL 1,000 UNIT TAB PO SCH (08:13)
[2018-11-10] MEDS: OCTREOTIDE ACETATE 0.05 MG/ML AMP SQ SCH ×2 (08:14→17:00)
[2018-11-10] MEDS: BALSAM PERU/CASTOR OIL 5 GM OINT...G. TP SCH (12:16)
--- NOTE | 2018-11-10 13:52 | Progress Note ---
DATE: 11/10/2018 SUBJECTIVE: Feels okay. Stool output is better. Skin around the ostomy is not hurting as much. PHYSICAL EXAMINATION: VITAL SIGNS: Temperature is 99.7, pulse 94, blood pressure 111/64. CHEST: Clear. ABDOMEN: With ileostomy and minimal erythema around it. EXTREMITIES: No edema at this time. : Clark in place with urine that appears like pus. LABORATORY DATA: Hemoglobin is 10.5, K of 5, serum CO2 21, creatinine 4.58, BUN is 26. ASSESSMENT: 1. Acute kidney injury. History of chronic kidney disease possibly stage 3, underlying history of diabetic nephropathy. 2. History of inflammatory bowel disease. 3. Urinary tract infection. 4. Metabolic acidosis. 5. Volume status, improving. PLAN: Start fiber supplements. A.m. labs. Plan dialysis in the morning. At this point, it does not appear that she has had renal recovery in spite of better volume status. We will follow along with you. Get back to nifedipine to 30 mg twice a day and monitor blood pressure. MD KEVIN VictorK/DEREJEL /[id number]
[2018-11-10] MEDS: HYDROCODONE/APAP 10MG-325MG TAB PO PRN (14:42)
[2018-11-10] MEDS: MIRTAZAPINE 15 MG TAB PO SCH (21:41)
[2018-11-10] MEDS: MEROPENEM 500MG/ NS 50ML 50 ML IV SCH (22:04)
[2018-11-11] VITALS (7 sets, daily range): BP systolic 107–131; BP diastolic 53–63
--- NOTE | 2018-11-11 00:04 | Progress Note ---
DATE: 11/10/2018 SUBJECTIVE: The patient reports significant improvement in firmness of the stool. The ileostomy output has also significantly decreased. Denies any abdominal pain. Tolerating oral diet. REVIEW OF SYSTEMS: GENERAL: No fever or chills. CVS: No chest pain or palpitation. RESPIRATORY: No cough or expectoration. MEDICATIONS: Reviewed as per APR. PHYSICAL EXAMINATION: VITAL SIGNS: Temperature 99, pulse 99 to 101, respirations 16, blood pressure 133/67, oxygen saturation 98% on room air. GENERAL: Not in any acute distress. Thin body habitus, low muscle mass. HEENT: Oral mucosa is moist. Anicteric sclerae. ABDOMEN: Soft, nondistended, nontender. Ileostomy bag, thick form brown stool. Nontender. No palpable mass or hernia. Positive bowel sounds. LABORATORY DATA: WBC 11.02, hemoglobin down to 8.9 from 10.5, hematocrit 26.9, and platelet count 198. Sodium 130, potassium 5.0, chloride 100, bicarb 21, BUN 26, creatinine 4.58, glucose 122. PT 15.3, INR 1.15, PTT 32.1. Stool C diff negative. Stool culture negative. IMPRESSION: High ileostomy output, this has significantly decreased with PPI, Imodium as well as octreotide. PLAN: Continue present medical management. The patient can be discharged home from GI standpoint. The patient's hemoglobin has dropped without any gross GI bleeding. This is likely due to fluid shift from hemodialysis. Enrrique Price MD SA/GABI /[id number]
[2018-11-11] MEDS: DEXTROSE 5%/0.45% SOD CHL 1,000 ML IV SCH ×3 (00:45→16:45)
[2018-11-11 05:19] LABS: ANION GAP 15.8 mmol/L (8-16); CREATININE, SERUM 5.82 mg/dL (0.57-1.11); MAGNESIUM 1.7 MG/DL (1.3-2.1); POTASSIUM 5.8 mmol/L (3.5-5.1)
--- NOTE | 2018-11-11 07:00 | NUR ---
received am report and morning rounds done. pt is sleeping, no s/s of distress. call light within reach and side rails up
[2018-11-11] MEDS: INSULIN LISPRO 100 UNIT/1 ML 3ML VIAL SQ SCH ×4 (07:30→21:00)
--- NOTE | 2018-11-11 08:16 | NUR ---
GOT APPROVAL FOR DIALYSIS CHAIR FOR [facility] M SAT AND [facility]IDA[facility] AT 0105 WITH A START DATE OF NOV 14. FILING COPY OF ACCEPTANCE LETTER IN CHART AND GIVING TO PT.
[2018-11-11] MEDS: OCTREOTIDE ACETATE 0.05 MG/ML AMP SQ SCH ×2 (09:00→17:00)
[2018-11-11] MEDS: PANTOPRAZOLE SOD 40 MG TABEC PO SCH ×2 (09:02→17:41)
[2018-11-11] MEDS: ASPIRIN 81 MG CHEW TAB PO SCH (09:02)
[2018-11-11] MEDS: METOCLOPRAMIDE HCL 10 MG TAB PO SCH ×4 (09:02→22:31)
[2018-11-11] MEDS: METOPROLOL TARTRATE 50 MG TAB PO SCH ×2 (09:04→22:31)
[2018-11-11] MEDS: LOPERAMIDE HCL 2 MG CAP PO SCH ×4 (09:04→22:30)
[2018-11-11] MEDS: NIFEDIPINE CR 30 MG TAB PO SCH ×2 (09:04→17:43)
[2018-11-11] MEDS: CHOLECALCIFEROL 1,000 UNIT TAB PO SCH (09:04)
[2018-11-11] MEDS: PSYLLIUM 6GM PACKET PO SCH (09:11)
[2018-11-11] MEDS: MORPHINE SULFATE 2 MG/ML SYR 1ML IV PRN ×3 (09:50→22:31)
[2018-11-11] MEDS: BALSAM PERU/CASTOR OIL 5 GM OINT...G. TP SCH (12:25)
--- NOTE | 2018-11-11 14:28 | NUR ---
Nutrition Intervention Note RD Recommendation(s) for Physician: - The patient meets criteria for MODERATE protein-calorie malnutrition. - Continue current diet per MD. - Rec renal MVi w/ minerals and vitamin C for wound healing - Pt refused any oral nutrition supplements. Plan of Care: RD following, monitoring for tolerance and adequacy Nutrition reason for involvement: follow up RD Assessment 11/11: Follow up: Pt was seen receiving dialysis. Pt reports a good appetite, no meal percentages are recorded within EMR. Pt denied N/V, has a colostomy and denied chewing/swallowing issues. Pt is still refusing ONS and stated she is eating fine. Pt had no other questions or concerns. Will continue to monitor. (11/06) Labs and meds reviewed. 68yo F, who was admitted for abdominal pain, nausea and vomiting. Pt was well known to me from her previous admissions. Hyperkalemia has resolved. Pt was receiving HD during my visit. Pt denied any pain, nausea or vomiting at time of visit. Pt tolerated breakfast and lunch well with 75% intake. PEG tube has been removed. Pt denied any chewing or swallowing difficulty. + ileostomy. Pt has lost over 15-20lbs within 1 year period. Upon NFPA, pt has some mild muscle/ fat loss. RD offered ONS but pt refused. Will continue to monitor and follow. Principal Problems/Diagnoses: abdominal pain, chest pain, hyperkalemia, hypomagnesemia PMH: End-stage renal disease, on hemodialysis; coronary artery disease; hyperlipidemia; and GERD. I/O: +740mL/ - 600mL GI: abdomen soft, flat, + BM Skin: stage 1 sacral pressure ulcer, per wound care Labs: 11/11: Na 132, K 5.8, CO2 19, BUN 41, Creat 5.82, POC GM 170 (11/06) Na 135 L, Cl 95 L, BUN 40 H, Creatinine 4.52 H, Glucose 137 269 H, TG 210 H Meds: reglan, insulin, dextrose, vitamin D3, protonix, abx, catapres, Imodium, Ht: 57in Wt: 104lb BMI: 22.5kg/m2 IBW: 94lb +/- 10% Malnutrition Evaluation (11/06/2018) The patient meets criteria for MODERATE protein-calorie malnutrition. 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 Nutrition Care Level: mod Nutrition Diagnosis: Moderate malnutrition related to inadequate oral intake as evidenced by poor PO intake, weight loss and mild muscle/fat loss. Goal: Patient will meet 75-100% of estimated needs by follow up Progress: Progressing Interventions: Mineral-modified diet, Multivitamin/mineral supplement therapy Monitoring/Evaluation: Total energy intake, Total protein intake, Modified diet, Weight change Signed: Randee Alex RD, LD
--- NOTE | 2018-11-11 15:58 | Progress Note ---
DATE: 11/11/2018 SUBJECTIVE: Seen after dialysis, potassium remains high in spite of her being careful with intake. PHYSICAL EXAMINATION: VITAL SIGNS: Temperature 98.6, pulse 78, blood pressure 129/58. GENERAL: No distress. Appears frail. CHEST: Clear. ABDOMEN: Soft with ileostomy. EXTREMITIES: No edema. LABORATORY DATA: Hemoglobin is 10.5, K is 5.8, serum CO2 19, creatinine 5.82, BUN 41. ASSESSMENT: 1. Acute kidney injury on top of chronic kidney disease, presumably stage 3. 2. Underlying diabetic nephropathy. 3. Metabolic acidosis. 4. Hyperkalemia, so far with no recovery of renal function. PLAN: Resume dialysis , 4-hour run wtih _ 2 potassium bath, 35 CO2 bath qb 350 qd 700, f160, prn mannitol, saline for low bp , after dialysis, could safely go home. We will prescribe her on Kayexalate on nondialysis days due to ongoing trouble with high potassium. Please see my dialysis orders for details not reiterated here MD ALEJO Victor/GABI /[id number] ASH
[2018-11-11] MEDS: MEROPENEM 500MG/ NS 50ML 50 ML IV SCH (22:30)
[2018-11-11] MEDS: MIRTAZAPINE 15 MG TAB PO SCH (22:31)
--- NOTE | 2018-11-11 22:56 | Progress Note ---
DATE: 11/11/2018 SUBJECTIVE: The patient reports no abdominal pain. She is no longer having a high ileostomy output. Her stool is very well formed in the ileostomy bag. No associated abdominal pain. She has had hemodialysis today. REVIEW OF SYSTEMS: GENERAL: No fever or chills. CVS: No chest pain or palpitation. RESPIRATORY: No cough or expectoration. MEDICATIONS: Reviewed as per APR. OBJECTIVE: VITAL SIGNS: Temperature 98.9, pulse 92, respirations 16, blood pressure 107/62, oxygen saturation 98% on room air. GENERAL: Not in any acute distress. Thin body habitus. No muscle mass. Oral mucosa is moist. ABDOMEN: Soft, nondistended, nontender. No palpable mass or hernia. Ileostomy bag with formed light yellow brown stool. Dialysis catheter in the right groin. Bowel sounds present. LABORATORY DATA: Labs today done showed a sodium 132, potassium 5.8, chloride 103, bicarb 19, BUN 41, creatinine 5.82, and glucose 91. ASSESSMENT: High ileostomy output/ileostomy, diarrhea has almost resolved with PPI, Imodium as well as octreotide injections. PLAN: Continue present medical management. Patient is discharged home with above GI recommendations. I have given her my business card. The patient to follow up with me in my office within one week post discharge. Enrrique Price MD SA/GABI /[id number]
[2018-11-12] VITALS (8 sets, daily range): BP systolic 91–109; BP diastolic 48–68
[2018-11-12] MEDS: DEXTROSE 5%/0.45% SOD CHL 1,000 ML IV SCH ×2 (00:45→08:45)
[2018-11-12] MEDS: INSULIN LISPRO 100 UNIT/1 ML 3ML VIAL SQ SCH ×4 (07:30→21:00)
[2018-11-12] MEDS: MORPHINE SULFATE 2 MG/ML SYR 1ML IV PRN (08:39)
[2018-11-12] MEDS: OCTREOTIDE ACETATE 0.05 MG/ML AMP SQ SCH ×2 (08:39→16:32)
[2018-11-12] MEDS: ASPIRIN 81 MG CHEW TAB PO SCH (08:47)
[2018-11-12] MEDS: METOCLOPRAMIDE HCL 10 MG TAB PO SCH ×4 (08:47→21:26)
[2018-11-12] MEDS: LOPERAMIDE HCL 2 MG CAP PO SCH ×4 (08:47→21:26)
[2018-11-12] MEDS: PANTOPRAZOLE SOD 40 MG TABEC PO SCH ×2 (08:47→18:15)
[2018-11-12] MEDS: METOPROLOL TARTRATE 50 MG TAB PO SCH ×2 (08:48→21:00)
[2018-11-12] MEDS: NIFEDIPINE CR 30 MG TAB PO SCH (08:48)
[2018-11-12] MEDS: PSYLLIUM 6GM PACKET PO SCH (08:48)
[2018-11-12] MEDS: CHOLECALCIFEROL 1,000 UNIT TAB PO SCH (08:48)
[2018-11-12] MEDS: BALSAM PERU/CASTOR OIL 5 GM OINT...G. TP SCH (09:00)
--- NOTE | 2018-11-12 12:34 | Progress Note ---
DATE: 11/12/2018 SUBJECTIVE: Feels okay. OBJECTIVE: VITAL SIGNS: Blood pressure is running on the low side, has been needing morphine once again. Temperature 99.3, pulse 80, and blood pressure 109/60. CHEST: Clear. EXTREMITIES: No edema. : Clark catheter, thick yellow urine consistent with infection. ASSESSMENT: 1. Acute tubular necrosis. 2. Underlying chronic kidney disease, presumably stage 3. 3. Volume depletion, improved. 4. History of metabolic acidosis. 5. Recurrent hyperkalemia. PLAN: Cut back the nifedipine 30 mg once a day. Recheck chemistries in the morning. Await tunneled dialysis catheter, after which she can go home. We will follow along sincerely. MD ALEJO Victor/GABI /[id number]
[2018-11-12] MEDS ORDERED: ONDANSETRON HCL 4 MG ORAL DISINTEGRATING TAB PO PRN (14:00)
--- NOTE | 2018-11-12 16:17 | NUR ---
Spoke to Mehul in IR he said supplies for tunneled femoral HD cath has been ordered for overnight delivery and will be placed tomorrow. Dr Lou and Dr. Santiago notified.
--- NOTE | 2018-11-12 16:45 | NUR ---
Bedside blood sugar check is 136
--- NOTE | 2018-11-12 18:47 | NUR ---
Clark was removed per MD order. Patient is due to void.
--- NOTE | 2018-11-12 19:18 | NUR ---
Patient received lying in bed. AAO x 3. Patient had no complaints of pain. Respiration even and non-labored. Telemetry records rhythm as SR at 83. Colostomy bag in place. Fall precautions implemented. Patient instructed to call for assistance when needed. Call light within reach.
[2018-11-12] MEDS: CLONIDINE HCL 0.3MG/24 HR PATCH TD SCH (21:00)
[2018-11-12] MEDS: MIRTAZAPINE 15 MG TAB PO SCH (21:26)
[2018-11-12] MEDS: MEROPENEM 500MG/ NS 50ML 50 ML IV SCH (21:26)
--- NOTE | 2018-11-12 23:37 | Progress Note ---
DATE: 11/12/2018 SUBJECTIVE: The patient could not be discharged home today. Ileostomy output has significantly decreased. Denies any abdominal pain. Tolerating oral diet. REVIEW OF SYSTEMS: GENERAL: No fever or chills. CARDIOVASCULAR SYSTEM: No chest pain or palpitation. RESPIRATORY: No cough or expectoration. MEDICATIONS: Inpatient medication reviewed as per APR. PHYSICAL EXAMINATION: VITAL SIGNS: Temperature 98.4, pulse 74, respirations 18, blood pressure 91/48 to 100/55, and oxygen saturation 98% on room air. General: Not in any acute distress. Oral mucosa is moist. Anicteric sclerae. Thin body habitus, low muscle mass. ABDOMEN: Soft, nondistended, nontender, dialysis catheter in the right groin. Ileostomy bag with soft yellow brown stool and fecal fluid. LABORATORY DATA: Stool culture negative. IMPRESSION: High-output ileostomy/ileostomy diarrhea resolved with Imodium before each meal, PPI twice daily, as well as octreotide injections. PLAN: Continue present medical management. The patient should be discharged home on PPI, preprandial Imodium, as well as octreotide injections. I have given the patient my business card. She is to follow in my office within one to two weeks after discharge. Enrrique Price MD SA/GABI /[id number]
--- NOTE | 2018-11-12 23:48 | NUR ---
Patient informed of upcoming medical procedure (placement of tunneled dialysis catheter) and instructed about NPO status. Patient verbalized understanding and voluntarily signed "Disclosure and Consent" form.
[2018-11-13] VITALS (7 sets, daily range): BP systolic 96–119; BP diastolic 53–69
--- NOTE | 2018-11-13 02:28 | NUR ---
Colostomy bag changed. Pericare perfomed.
--- NOTE | 2018-11-13 02:29 | NUR ---
Bladder Scan done. Zero recording of urine obtained. Will continue to monitor.
--- NOTE | 2018-11-13 07:29 | NUR ---
Shift report given to oncoming nurse.
[2018-11-13] MEDS: INSULIN LISPRO 100 UNIT/1 ML 3ML VIAL SQ SCH ×5 (07:30→22:00)
--- NOTE | 2018-11-13 08:00 | NUR ---
RECEIVED PT RESTING. NPO FOR PROCEDURE. NO DISCOMFORT NOTED.
[2018-11-13 08:12] LABS: CALCIUM 9.3 mg/dL (8.4-10.2); CREATININE, SERUM 4.97 mg/dL (0.57-1.11)
[2018-11-13] MEDS: METOCLOPRAMIDE HCL 10 MG TAB PO SCH ×4 (08:45→22:39)
[2018-11-13] MEDS: LOPERAMIDE HCL 2 MG CAP PO SCH ×4 (08:45→21:00)
[2018-11-13] MEDS: PANTOPRAZOLE SOD 40 MG TABEC PO SCH ×2 (08:45→16:30)
[2018-11-13] MEDS: METOPROLOL TARTRATE 50 MG TAB PO SCH ×2 (09:00→21:00)
[2018-11-13] MEDS: PSYLLIUM 6GM PACKET PO SCH (09:00)
[2018-11-13] MEDS ORDERED: EPOETIN ALFA 10000 UNIT/ML VIAL SC ONE (09:00)
[2018-11-13] MEDS: CHOLECALCIFEROL 1,000 UNIT TAB PO SCH (09:00)
[2018-11-13] MEDS: ASPIRIN 81 MG CHEW TAB PO SCH (09:00)
[2018-11-13] MEDS: OCTREOTIDE ACETATE 0.05 MG/ML AMP SQ SCH ×2 (09:00→16:35)
[2018-11-13] MEDS: NIFEDIPINE CR 30 MG TAB PO SCH (09:00)
[2018-11-13] MEDS: BALSAM PERU/CASTOR OIL 5 GM OINT...G. TP SCH (09:00)
--- NOTE | 2018-11-13 10:25 | NUR ---
IMM letter delivered and explained to pt. She verbalized understanding. Signed copy placed in chart. Copy to pt.
--- NOTE | 2018-11-13 11:00 | NUR ---
Resumption order for home health faxed to [facility]. Called and spoke with Marva with intake and informed of discharge for today. PATIENT ADDRESS WHERE SERVICE WILL BE RECEIVED: [facility] [employer] [address] [place] [address] PATIENT CONTACT NUMBER: [phone] NAME OF HOME HEALTH COMPANY: [facility] TELEPHONE/FAX NUMBER OF COMPANY: P [phone] / F [phone] ADDRESS OF COMPANY: [address] [place] [address] SERVICES TO RECEIVE: Resume previous services, usp, PT/OT ANTICIPATED DATE SERVICES WILL BEGIN: November 14, 2018 Please call the company above if you have not received a call to schedule a home visit within 24 hours of discharge.
--- NOTE | 2018-11-13 11:35 | Progress Note ---
DATE: 11/13/2018 SUBJECTIVE: Feels okay. Await placement of tunneled dialysis catheter. Ostomy area redness has improved. OBJECTIVE: VITAL SIGNS: Temperature 98.1, pulse 82, blood pressure 97/54. CHEST: Clear. EXTREMITIES: No edema. ABDOMEN: Benign with ostomy in place. The maceration around the skin has much improved. NEURO: Alert, appropriate. Speech is normal. LABORATORY DATA: Hemoglobin is 8.9. Today's potassium is pending, which she had been running hyperkalemia. She has been maintained on Saturday, , Saturday schedule. ASSESSMENT: 1. Acute tubular necrosis on chronic kidney disease, stage 3. 2. Underlying diabetic nephropathy. 3. Inflammatory bowel disease. 4. Recurrent hyperkalemia secondary to decreased GFR. 5. Metabolic acidosis currently dialysis dependent PLAN: We await the tunneled dialysis catheter placement. If the potassium is adequate, if it is not high, she scan go to dialysis at the newly established home clinic tomorrow. If not, we can dialyze here prior to discharge. If it is high, she does have a prescription for Kayexalate on a daily basis, which she can fill along with (containing sorbitol). If this cause any GI discomfort, we can switch her to one of the newer potassium binding agents. Increase protein intake. Thank you for allowing us to participate in Ms. Méndez's care. MD ALEJO Victor/GABI /[id number] ASH
[2018-11-13] MEDS ORDERED: SODIUM CHLORIDE 0.9% 250ML 250 ML ONE (12:16)
[2018-11-13] MEDS ORDERED: LIDOCAINE HCL 1% LOCAL INJ 20 ML VIAL ONE (12:16)
[2018-11-13] MEDS ORDERED: SODIUM CHLORIDE 0.9% 1000ML 2,000 ML ONE (13:16)
[2018-11-13] MEDS ORDERED: CEFAZOLIN SOD 1 GM/NS 50ML 50 ML IV ONE (14:00)
--- NOTE | 2018-11-13 15:30 | NUR ---
PT UNABLE TO HAVE PROCEDURE DO TO LOW BLOOD PRESSURE. DIALYSIS DONE DUE TO POTASSIUM BEING 6.
--- NOTE | 2018-11-13 18:49 | NUR ---
DR HILLMAN AWARE OF DISCHARGE BEING HELD DUE TO PT BP BEING TO LOW FOR THE PROCEDURE
--- NOTE | 2018-11-13 19:30 | NUR ---
Patient received sitting up in bed. AAO x 3. No acute distress noted. Call light within reach.
[2018-11-13] MEDS: MIRTAZAPINE 15 MG TAB PO SCH (22:39)
[2018-11-14] VITALS: BP 108/53
[2018-11-14 04:00] VITALS: BP 107/54
--- NOTE | 2018-11-14 07:00 | NUR ---
BEDSIDE SHIFT REPORT RECEIVED FROM THE CONFERENCE CONCIERGE RN. PT IS ON NPO PER THE CONFERENCE CONCIERGE RN. PT HAS NO LAM. PT DENIES NEEDS AT THIS TIME.
[2018-11-14] MEDS: INSULIN LISPRO 100 UNIT/1 ML 3ML VIAL SQ SCH ×3 (07:30→16:18)
--- NOTE | 2018-11-14 07:40 | NUR ---
DR. HATFIELD AT BEDSIDE. INFORMED PT K LEVEL. NEW ORDER FOR NPO PER THE
--- NOTE | 2018-11-14 08:00 | NUR ---
MANAGER MACHINE AT BEDSIDE.
[2018-11-14 08:04] VITALS: BP 110/52
--- NOTE | 2018-11-14 08:39 | NUR ---
Pt pending tunnelled cath placement today at 1400. ABHISHEK Torres updated Aida with [facility] and informed her that pt will not start with them until Saturday.
[2018-11-14 08:46] VITALS: BP 110/52
[2018-11-14] MEDS: OCTREOTIDE ACETATE 0.05 MG/ML AMP SQ SCH ×3 (09:00→16:35)
[2018-11-14] MEDS: NIFEDIPINE CR 30 MG TAB PO SCH (09:00)
[2018-11-14] MEDS: METOPROLOL TARTRATE 50 MG TAB PO SCH (09:00)
[2018-11-14] MEDS: MORPHINE SULFATE 2 MG/ML SYR 1ML IV PRN ×2 (09:16→16:36)
[2018-11-14] MEDS ORDERED: SODIUM CHLORIDE 0.9% 1000ML 2,000 ML ONE (09:53)
[2018-11-14] MEDS ORDERED: HEPARIN SOD (PORCINE) 1000 UNIT/ML SDV ONE (09:54)
--- NOTE | 2018-11-14 11:26 | Progress Note ---
DATE: 11/14/2018 SUBJECTIVE: Await tunneled dialysis catheter placement. Otherwise feeling okay. She is still having trouble keeping up with adequate intake. OBJECTIVE: VITAL SIGNS: Temp is 98.5, pulse 93, and blood pressure 107/54. CHEST: Clear. EXTREMITIES: No edema. ABDOMEN: Ostomy. ASSESSMENT: 1. Acute tubular necrosis on chronic kidney disease stage 3, so far with no recovery. Recurrent hyperkalemia, presumably from low GFR. 2. Volume depletion. 3. Metabolic acidosis and hyperkalemia also being managed with dialysis. PLAN: Hemodialysis today. 3.5-hour run, 2 potassium bath, no fluid removal, blood flow rate 350 mL/minute, dialysate flow rate 700 mL/minute, F160 filter. We will follow along. Sincerely, Mitul Santiago. MD ALEJO Victor/MODL /[id number]
[2018-11-14] MEDS: METOCLOPRAMIDE HCL 10 MG TAB PO SCH ×3 (11:30→16:30)
[2018-11-14 11:41] VITALS: BP 112/59
[2018-11-14] MEDS: LOPERAMIDE HCL 2 MG CAP PO SCH ×3 (13:00→18:41)
[2018-11-14] MEDS ORDERED: SODIUM CHLORIDE 0.9% 250ML 250 ML ONE (14:33)
--- NOTE | 2018-11-14 14:50 | NUR ---
PT OFF UNIT FOR PROCEDURE IN SAFE CONDITION.
[2018-11-14] MEDS ORDERED: MIDAZOLAM HCL 2 MG/2 ML VIAL ONE (14:53)
[2018-11-14] MEDS ORDERED: FENTANYL CITRATE/PF 100MCG/2 ML INJ ONE (14:53)
[2018-11-14] MEDS ORDERED: HEPARIN SOD (PORCINE) 1000 UNIT/ML 30ML ONE (15:07)
--- NOTE | 2018-11-14 16:10 | NUR ---
PT BACK TO UNIT AFTER PROCEDURE. RIGHT FEMORAL IV REMOVED PER RADIOLOGY. PT IS AAOX4. FAMILY AT BEDSIDE. PT DENIES NEEDS AT THIS TIME.
[2018-11-14] MEDS: PANTOPRAZOLE SOD 40 MG TABEC PO SCH ×2 (16:27→16:30)
[2018-11-14] MEDS: ASPIRIN 81 MG CHEW TAB PO SCH (16:29)
[2018-11-14] MEDS: CHOLECALCIFEROL 1,000 UNIT TAB PO SCH (16:31)
[2018-11-14] MEDS: PSYLLIUM 6GM PACKET PO SCH (16:33)
[2018-11-14] MEDS: BALSAM PERU/CASTOR OIL 5 GM OINT...G. TP SCH (16:33)
[2018-11-14 16:36] VITALS: BP 114/57
[2018-11-14 17:30] LABS: BASOPHILS % 0.6 % (0.0-1.0); EOSINOPHILS # (AUTO) 0.8 (0.0-0.4); EOSINOPHILS % 11.5 % (0.0-6.0); HEMOGLOBIN 7.6 g/dL (12.0-16.0); LYMPHOCYTES # (AUTO) 2.5 (1.0-3.2); LYMPHOCYTES % 36.1 % (18.0-39.1); MEAN CORPUSCULAR HEMOGLOBIN 32.6 pg (28-32); MEAN CORPUSCULAR HGB CONC 33.2 g/dL (31-35); MEAN CORPUSCULAR VOLUME 98.3 fL (81-99); MONOCYTES # (AUTO) 0.6 (0.2-0.8); MONOCYTES % 8.3 % (4.4-11.3); NEUTROPHILS # (AUTO) 2.9 (2.1-6.9); NEUTROPHILS % 42.5 % (38.7-80.0); PLATELET COUNT 195 x10e3/uL (140-360); RED BLOOD COUNT 2.33 x10e6/uL (3.6-5.1); RED CELL DISTRIBUTION WIDTH 14.3 % (11.7-14.4)
[2018-11-14 17:45] LABS: HEMATOCRIT 22.9 % (34.2-44.1)
[2018-11-14 17:46] LABS: ANION GAP 10.1 mmol/L (8-16); CALCIUM 9.1 mg/dL (8.4-10.2); CREATININE, SERUM 1.76 mg/dL (0.57-1.11); POTASSIUM 4.1 mmol/L (3.5-5.1)
--- NOTE | 2018-11-14 17:47 | NUR ---
Nutrition Intervention Note RD Recommendation(s) for Physician: - The patient meets criteria for MODERATE protein-calorie malnutrition. - Continue current diet per MD. - Rec renal MVi w/ minerals and vitamin C for wound healing - Pt refused any oral nutrition supplements. Plan of Care: RD following, monitoring for tolerance and adequacy Nutrition reason for involvement: follow up RD Assessment 11/14: Follow up: Pt was seen lying in bed, plan is for conversion of non-tunneled to tunneled central venous catheter today. Discussed pt in rounds, she did have to receive dialysis earlier 2/2 high K. Labs are currently pending. Pt reported that her appetite has been fine. She made RD aware that she knows she should not eat some food items on the menu such as raw vegetables and tomatoes, I reported to her that she is on a renal diet and she should be getting what is appropriate and within her restrictions on that diet. Pt had no other questions. Pt reported no N/V or chewing or swallowing issues as of now. Pending d/c today. Will continue to monitor. 11/11: Follow up: Pt was seen receiving dialysis. Pt reports a good appetite, no meal percentages are recorded within EMR. Pt denied N/V, has a colostomy and denied chewing/swallowing issues. Pt is still refusing ONS and stated she is eating fine. Pt had no other questions or concerns. Will continue to monitor. (11/06) Labs and meds reviewed. 68yo F, who was admitted for abdominal pain, nausea and vomiting. Pt was well known to me from her previous admissions. Hyperkalemia has resolved. Pt was receiving HD during my visit. Pt denied any pain, nausea or vomiting at time of visit. Pt tolerated breakfast and lunch well with 75% intake. PEG tube has been removed. Pt denied any chewing or swallowing difficulty. + ileostomy. Pt has lost over 15-20lbs within 1 year period. Upon NFPA, pt has some mild muscle/ fat loss. RD offered ONS but pt refused. Will continue to monitor and follow. Principal Problems/Diagnoses: abdominal pain, chest pain, hyperkalemia, hypomagnesemia PMH: End-stage renal disease, on hemodialysis; coronary artery disease; hyperlipidemia; and GERD. I/O: +1400mL/ - 1060mL GI: abdomen soft, flat, + BM, colostomy Skin: stage 1 sacral pressure ulcer, per wound care Labs: 11/14: Pending, POC GM: 84-272 11/11: Na 132, K 5.8, CO2 19, BUN 41, Creat 5.82, POC GM 170 (11/06) Na 135 L, Cl 95 L, BUN 40 H, Creatinine 4.52 H, Glucose 137 269 H, TG 210 H Meds: reglan, insulin, dextrose, vitamin D3, protonix, abx, catapres Ht: 57in Wt: 104lb BMI: 22.5kg/m2 IBW: 94lb +/- 10% Malnutrition Evaluation (11/06/2018) The patient meets criteria for MODERATE protein-calorie malnutrition. 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 Nutrition Care Level: mod Nutrition Diagnosis: Moderate malnutrition related to inadequate oral intake as evidenced by poor PO intake, weight loss and mild muscle/fat loss. Goal: Patient will meet 75-100% of estimated needs by follow up Progress: Progressing Interventions: Mineral-modified diet carb , Multivitamin/mineral supplement therapy Monitoring/Evaluation: Total energy intake, Total protein intake, Modified diet, Weight change Signed: Randee Alex RD, LD
--- NOTE | 2018-11-14 17:55 | NUR ---
PAGED DR HILLMAN AND DR. HATFIELD REGARDING THE LAB VALUES HGB, HCT AND K LEVEL. WAITING FOR THE RESPONSE.
--- NOTE | 2018-11-14 18:01 | NUR ---
CALL BACK FROM DR. HILLMAN AND DR. HATFIELD. D/C PT PER DR. HILLMAN AND DR. HATFIELD.
[2018-11-14] MEDS ORDERED: SPS15 GM/60 M PO (18:29)
[2018-11-14] MEDS ORDERED: HEPARIN 500 UNITS/5ML MDV INJ PRN (18:45)
--- NOTE | 2018-11-14 19:15 | NUR ---
HEPARIN LOCK APPLIED ON LEFT PORTAL CATH PER THE PROTOCOL. TIP INTACT. DRESSING APPLIED. PT DENIED FURTHER NEEDS.
--- NOTE | 2018-11-14 19:29 | NUR ---
PT DISCHARGED HOME SAFELY WITH FAMILY. PT ESCORTED VIA WHEEL CHAIR TO THE FRONT ENTRANCE. RX GIVEN. PT DENIED FURTHER NEEDS.
--- NOTE | 2018-11-19 14:54 | Diagnostic Imaging Report ---
PROCEDURE: Conversion of non-tunneled to tunneled central venous catheter Procedural Personnel Attending physician(s): Melanie Fischer MD Fellow physician(s): None Resident physician(s): None Advanced practice provider(s): None Pre-procedure diagnosis: ESRD Post-procedure diagnosis: Same Indication: Performance of hemodialysis Additional clinical history: None Complications: No immediate complications. IMPRESSION: Conversion of right-sided common femoral non-tunneled central venous catheter for a tunneled dialysis catheter, with tip in the expected location of the inferior vena cava. Plan: The catheter may be used immediately. PROCEDURE SUMMARY: - Temporary central venous catheter removal - Tunneled central venous catheter insertion with fluoroscopic guidance - Additional procedure(s): None PROCEDURE DETAILS: Pre-procedure History and imaging of central venous access reviewed (QCDR): Yes Consent: Informed consent for the procedure including risks, benefits and alternatives was obtained and time-out was performed prior to the procedure. Preparation (MIPS): The site was prepared and draped using all elements of maximal sterile barrier technique including sterile gloves, sterile gown, cap, mask, large sterile sheet, sterile ultrasound probe cover, hand hygiene and cutaneous antisepsis with 2% chlorhexidine. Medical reason for site preparation exception (MIPS): Not applicable Anesthesia/sedation Level of anesthesia/sedation: Moderate sedation (conscious sedation) Anesthesia/sedation administered by: Independent trained observer under attending supervision with continuous monitoring of the patient?s level of consciousness and physiologic status Total intra-service sedation time (minutes): 30 Catheter exchange Local anesthesia was administered. A wire was passed through the indwelling central venous catheter and into the central veins. The catheter was removed, and a peel-away sheath was placed. An incision was made near the venous access site and the catheter was tunneled subcutaneously to the venous access site. The catheter was advanced via a peel-away sheath into the vein under fluoroscopic guidance. Catheter tip location was fluoroscopically verified and a permanent image was stored. Catheter placed: Ultrasound [employer] Catheter size (Tuvaluan): 16 [place] Catheter flush: Heparin (1000 units/mL) Closure The access site was closed and a sterile bandage was applied. Access site closure technique: Tissue adhesive Catheter securement technique: Non-absorbable suture Contrast Contrast agent: None Radiation Dose Fluoroscopy time (minutes): 0.2 Reference air kerma (mGy): 1.40 Additional Details Additional description of procedure: None Equipment details: None Specimens removed: Temporary central venous catheter Estimated blood loss (mL): Less than 10 Standardized report: [email or web address] Attestation Signer name: Melanie Fischer MD I attest that I was present for the entire procedure. I reviewed the stored images and agree with the report as written. Signed by: Melanie Fischer MD on 11/14/2018 4:43 PM
--- NOTE | 2018-11-20 08:26 | NUR ---
DIALYSIS CALLED AND STATED PT HAS NOT SHOWN UP FOR TWO SCHEDULED APPOINTMENTS. CONFIRMED EMAIL ADDRESS AND PHONE NUMBER WITH THEM TO REACH OUT OT .
== END 2018-11-14 19:30 | disposition home or self-care (01) | DRG 674 ==
LOC: ER 07:16 → ERHOLD 12:15 → MED/SURG2 13:22
PROVIDERS: ADMIT Internal Medicine; ATTEND Internal Medicine
PROC: 5A1D70Z Performance of Urinary Filtration, Intermittent, Less than 6 Hours Per Day (ICD-10-PCS; principal; 2018-11-05)
PROC: 02HV33Z Insertion of Infusion Device into Superior Vena Cava, Percutaneous Approach (ICD-10-PCS; 2018-11-05)
PROC: 0DP6XUZ Removal of Feeding Device from Stomach, External Approach (ICD-10-PCS; 2018-11-05)
PROC: 5A1D70Z Performance of Urinary Filtration, Intermittent, Less than 6 Hours Per Day (ICD-10-PCS; 2018-11-06)
PROC: 5A1D70Z Performance of Urinary Filtration, Intermittent, Less than 6 Hours Per Day (ICD-10-PCS; 2018-11-09)
PROC: 5A1D70Z Performance of Urinary Filtration, Intermittent, Less than 6 Hours Per Day (ICD-10-PCS; 2018-11-13)
PROC: 5A1D70Z Performance of Urinary Filtration, Intermittent, Less than 6 Hours Per Day (ICD-10-PCS; 2018-11-14)
PROC: 0JH63XZ Insertion of Tunneled Vascular Access Device into Chest Subcutaneous Tissue and Fascia, Percutaneous Approach (ICD-10-PCS; 2018-11-14)
PROC: 06H033Z Insertion of Infusion Device into Inferior Vena Cava, Percutaneous Approach (ICD-10-PCS; 2018-11-14)
DX: N17.0 Acute kidney failure with tubular necrosis (principal); K31.6 Fistula of stomach and duodenum; K52.1 Toxic gastroenteritis and colitis; N39.0 Urinary tract infection, site not specified; E87.2 Acidosis; E87.5 Hyperkalemia; E83.51 Hypocalcemia; E83.42 Hypomagnesemia; I95.9 Hypotension, unspecified; Z93.3 Colostomy status; T36.1X5A Adverse effect of cephalosporins and other beta-lactam antibiotics, initial encounter; E83.41 Hypermagnesemia; I12.9 Hypertensive chronic kidney disease with stage 1 through stage 4 chronic kidney disease, or unspecified chronic kidney disease; N18.3 Chronic kidney disease, stage 3 (moderate); E11.21 Type 2 diabetes mellitus with diabetic nephropathy; Z79.4 Long term (current) use of insulin; E86.0 Dehydration
CPT/HCPCS: 36415; 36556; 36558; 71045; 74176; 74470; 76937; 77001; 80048; 80053; 80061; 81001; 82150; 82550; 82553; 82948; 83690; 83735; 83880; 84100; 84484; 85025; 85610; 85730; 86704; 86706; 87045; 87086; 87340; 87350; 87493; 90962; 93005; 99152; 99285; C1769; J0610; J1642; J1644; J1817; J2001; J2060; J2250; J2270; J2354; J2405; J3010; J3475; J7030; J7050; J7799